=== PATIENT | male | born 1960 | race Caucasian/White ===

== ENCOUNTER 2020-07-06 10:41 | Outpatient (REF) | payer MEDICARE, MEDICAID, SELFPAY ==
[2020-07-06 14:24] LABS: Hematocrit 43.1 % (42-52); Hemoglobin 12.9 g/dl (14.0-18.0)
[2020-07-06 14:27] LABS: Estimated Average Glucose 91 mg/dL; Hemoglobin A1c % 4.8 %
[2020-07-06 14:55] LABS: Alanine Aminotransferase 8 U/L (0-40); Albumin Level 4.3 g/dL (3.5-5.0); Alkaline Phosphatase 71 U/L (39-117); Aspartate Amino Transferase 15 U/L (5-37); Blood Urea Nitrogen 18 mg/dL (9-16); Estimated Glomerular Filt Rate > 60; Glucose Random 105 mg/dL (60-115)
[2020-07-06 15:15] LABS: TSH reflex Free T4 0.87 mIU/mL (0.32-4.0)
[2020-07-06 15:24] LABS: Anion Gap 13 (12-20); Bilirubin Total 0.3 mg/dL (0.0-1.0); Calcium 10.3 mg/dL (8.4-10.2); Carbon Dioxide 26 mmol/L (22-29); Chloride 104 mmol/L (96-108); Potassium 5.3 mmol/l (3.3-5.1); Sodium 138 mmol/L (135-145)
[2020-07-07 18:17] LABS: LDL Cholesterol Direct 135 mg/dL (<100)
== END 2020-07-06 10:42 | disposition home or self-care (01) ==
LOC: HO.HMGCLDS 10:41
PROVIDERS: PCP Internal Medicine; Visit Provider Internal Medicine
DX: Z76.89 Persons encountering health services in other specified circumstances (principal); E78.2 Mixed hyperlipidemia; Z72.0 Tobacco use; E03.9 Hypothyroidism, unspecified; J44.9 Chronic obstructive pulmonary disease, unspecified; R73.01 Impaired fasting glucose; N40.1 Benign prostatic hyperplasia with lower urinary tract symptoms; E66.1 Drug-induced obesity; Z68.30 Body mass index [BMI] 30.0-30.9, adult
CPT/HCPCS: 36415; 80053; 83036; 83721; 84443; 85014; 85018

== ENCOUNTER 2020-07-21 11:50 | Outpatient (REF) | payer MEDICARE, MEDICAID, SELFPAY ==
[2020-07-21 12:09] LABS: MANUAL DIFF FLAG NO
[2020-07-21 12:11] LABS: Basophils Absolute Auto 0.1 X10*3/uL (0.0-0.2); Basophils Percent Auto 0.8 % (0-2); Eosinophils Absolute Auto 0.6 X10*3/uL (0.0-0.4); Eosinophils Percent Auto 5.9 % (0-4); Hematocrit 44.3 % (42-52); Hemoglobin 13.3 g/dl (14.0-18.0); Imm Gran Abs Auto 0.04 X10*3/uL (0.00-0.03); Imm Gran Pct Auto 0.4 % (0.0-0.4); Lymphocytes Absolute Auto 2.8 X10*3/uL (1.2-4.9); Lymphocytes Percent Auto 27.1 % (20-40); Mean Corpuscular Hemoglobin 24.1 pg (27.0-33.0); Mean Corpuscular Volume 80.4 fL (80-98); Mean Platelet Volume 9.4 fL (9.4-12.4); Monocytes Absolute Auto 0.7 X10*3/uL (0.1-1.2); Monocytes Percent Auto 7.2 % (2-11); Neutrophils Percent Auto 58.6 % (45-73); Platelet Count 270 X10*3/uL (160-400); Red Blood Count 5.51 X10*6/uL (4.60-5.80); Red Cell Distribution Width 18.6 % (11.0-16.0); White Blood Count 10.2 X10*3/uL (4.8-10.8)
[2020-07-21 12:36] LABS: Alanine Aminotransferase 9 U/L (0-40); Albumin Level 4.5 g/dL (3.5-5.0); Alkaline Phosphatase 91 U/L (39-117); Anion Gap 12 (12-20); Aspartate Amino Transferase 17 U/L (5-37); Bilirubin Total 0.3 mg/dL (0.0-1.0); Blood Urea Nitrogen 13 mg/dL (9-16); Calcium 9.7 mg/dL (8.4-10.2); Carbon Dioxide 27 mmol/L (22-29); Chloride 104 mmol/L (96-108); Estimated Glomerular Filt Rate > 60; Glucose Random 69 mg/dL (60-115); Potassium 4.7 mmol/l (3.3-5.1); Sodium 138 mmol/L (135-145); Total Protein 7.1 g/dL (6.5-8.0)
== END 2020-07-21 11:51 | disposition home or self-care (01) ==
LOC: HO.BBR 11:50
PROVIDERS: PCP Internal Medicine; Visit Provider Internal Medicine Medical Oncology
DX: D75.1 Secondary polycythemia (principal)
CPT/HCPCS: 36415; 80053; 85025; 99195

== ENCOUNTER 2020-08-21 10:23 | Outpatient (REF) | payer MEDICARE, MEDICAID, SELFPAY ==
[2020-08-21 11:52] LABS: Alanine Aminotransferase 8 U/L (0-40); Albumin Level 4.6 g/dL (3.5-5.0); Alkaline Phosphatase 80 U/L (39-117); Anion Gap 12 (12-20); Aspartate Amino Transferase 13 U/L (5-37); Bilirubin Total 0.5 mg/dL (0.0-1.0); Blood Urea Nitrogen 23 mg/dL (9-16); Calcium 10.6 mg/dL (8.4-10.2); Carbon Dioxide 27 mmol/L (22-29); Chloride 108 mmol/L (96-108); Estimated Glomerular Filt Rate > 60; Glucose Fasting 108 mg/dL (60-99); Magnesium 2.2 mg/dL (1.6-2.6); Phosphorus 3.4 mg/dL (2.7-4.5); Potassium 4.9 mmol/l (3.3-5.1); Sodium 142 mmol/L (135-145); Total Protein 7.5 g/dL (6.5-8.0)
[2020-08-21 12:15] LABS: Vitamin D 25-OH Total 15.5 ng/mL (>30)
[2020-08-23 14:03] LABS: Calcium (PTHI) 10.9 mg/dL (8.6-10.3); PTHI 55 pg/mL (14-64)
[2020-08-27 00:47] LABS: VITAMIN D (1,25 OH) D3 19 pg/mL; Vit D (1,25-Dihydroxy) Total 19 pg/mL (18-72); Vitamin D (1,25 OH) D2 <8 pg/mL
== END 2020-08-21 10:24 | disposition home or self-care (01) ==
LOC: HO.HMGCLDS 10:23
PROVIDERS: PCP Internal Medicine; Visit Provider Internal Medicine Endocrinology, Diabetes & Metabolism
DX: E21.0 Primary hyperparathyroidism (principal)
CPT/HCPCS: 80053; 82306; 82652; 83735; 83970; 84100

== ENCOUNTER 2020-08-24 10:27 | Outpatient (REF) | payer MEDICARE, MEDICAID, SELFPAY | END 2020-08-24 10:28 | disposition home or self-care (01) | LOC: HO.HMGCLDS 10:27 | PROVIDERS: PCP Internal Medicine; Referring Provider Internal Medicine; Visit Provider Internal Medicine Endocrinology, Diabetes & Metabolism | DX: Z20.828 Contact with and (suspected) exposure to other viral communicable diseases (principal); E21.1 Secondary hyperparathyroidism, not elsewhere classified; E55.9 Vitamin D deficiency, unspecified; E04.2 Nontoxic multinodular goiter | CPT/HCPCS: C9803; Q3014; U0003 ==

== ENCOUNTER 2020-09-22 13:58 | Outpatient (REF) | payer MEDICARE, MEDICAID, SELFPAY | END 2020-09-22 13:59 | disposition home or self-care (01) | LOC: HO.BBR 13:58 | PROVIDERS: Visit Provider Internal Medicine Medical Oncology | DX: D75.1 Secondary polycythemia (principal) | CPT/HCPCS: 85018 ==

== ENCOUNTER 2020-10-09 10:32 | Outpatient (REF) | payer MEDICARE, MEDICAID, SELFPAY ==
[2020-10-09 14:28] LABS: Lithium 0.77 mmol/L (0.60-1.20)
[2020-10-09 14:35] LABS: Anion Gap 12 (12-20); Blood Urea Nitrogen 14 mg/dL (9-16); Calcium 10.2 mg/dL (8.4-10.2); Carbon Dioxide 27 mmol/L (22-29); Chloride 102 mmol/L (96-108); Estimated Glomerular Filt Rate > 60; Glucose Random 94 mg/dL (60-115); Potassium 4.7 mmol/l (3.3-5.1); Sodium 136 mmol/L (135-145)
== END 2020-10-09 10:33 | disposition home or self-care (01) ==
LOC: HO.10HDL 10:32
PROVIDERS: Visit Provider Clinical Nurse Specialist Psychiatric/Mental Health, Adult
DX: Z79.899 Other long term (current) drug therapy (principal)
CPT/HCPCS: 36415; 80048; 80178

== ENCOUNTER 2020-11-25 13:51 | Outpatient (REF) | payer MEDICARE, MEDICAID, SELFPAY ==
[2020-11-25 14:07] LABS: MANUAL DIFF FLAG NO
[2020-11-25 14:10] LABS: Basophils Absolute Auto 0.1 X10*3/uL (0.0-0.2); Basophils Percent Auto 0.7 % (0-2); Eosinophils Absolute Auto 0.5 X10*3/uL (0.0-0.4); Hematocrit 41.9 % (42-52); Hemoglobin 12.9 g/dl (14.0-18.0); Imm Gran Abs Auto 0.02 X10*3/uL (0.00-0.03); Imm Gran Pct Auto 0.2 % (0.0-0.4); Lymphocytes Absolute Auto 3.2 X10*3/uL (1.2-4.9); Lymphocytes Percent Auto 35.7 % (20-40); Mean Corpuscular HGB Conc 30.8 g/dl (31.0-36.0); Mean Corpuscular Hemoglobin 24.8 pg (27.0-33.0); Mean Corpuscular Volume 80.6 fL (80-98); Mean Platelet Volume 9.4 fL (9.4-12.4); Monocytes Absolute Auto 0.6 X10*3/uL (0.1-1.2); Monocytes Percent Auto 6.5 % (2-11); Neutrophils Absolute Auto 4.5 X10*3/uL (2.0-8.3); Neutrophils Percent Auto 50.9 % (45-73); Platelet Count 247 X10*3/uL (160-400); Red Cell Distribution Width 17.8 % (11.0-16.0); White Blood Count 8.9 X10*3/uL (4.8-10.8)
[2020-11-25 14:51] LABS: Alanine Aminotransferase 9 U/L (0-40); Albumin Level 4.4 g/dL (3.5-5.0); Alkaline Phosphatase 89 U/L (39-117); Anion Gap 11 (12-20); Aspartate Amino Transferase 15 U/L (5-37); Bilirubin Total 0.4 mg/dL (0.0-1.0); Blood Urea Nitrogen 17 mg/dL (9-16); Calcium 10.1 mg/dL (8.4-10.2); Carbon Dioxide 27 mmol/L (22-29); Chloride 102 mmol/L (96-108); Estimated Glomerular Filt Rate > 60; Glucose Random 106 mg/dL (60-115); Potassium 4.4 mmol/L (3.3-5.1); Sodium 136 mmol/L (135-145); Total Protein 7.1 g/dL (6.5-8.0)
== END 2020-11-25 13:52 | disposition home or self-care (01) ==
LOC: HO.BBR 13:51
PROVIDERS: Visit Provider Internal Medicine Medical Oncology
DX: D75.1 Secondary polycythemia (principal)
CPT/HCPCS: 36415; 80053; 85025

== ENCOUNTER 2020-12-16 10:56 | Outpatient (REF) | payer MEDICARE, MEDICAID, SELFPAY ==
--- NOTE | ~2020-12-16 | XR_ITS ---
EXAMINATION: XR KNEE, LEFT CLINICAL INFORMATION: Pain left knee COMPARISON: None TECHNIQUE: Four views of the left knee. FINDINGS: There is loss of medial and patellofemoral compartment joint space with periarticular spurring. There is mild suprapatellar joint effusion. No visible acute fracture or dislocation seen. There is no lytic process. XR/XR knee LT 4V IMPRESSION: Mild degenerative changes medial and patellar compartment joint space left knee. No visible acute fracture or dislocation seen.
== END 2020-12-16 10:57 | disposition home or self-care (01) ==
LOC: HO.HMGCX 10:56
PROVIDERS: PCP Internal Medicine; Visit Provider Internal Medicine
DX: M25.562 Pain in left knee (principal)
CPT/HCPCS: 73564

== ENCOUNTER 2020-12-29 10:50 | Outpatient (REF) | payer MEDICARE, MEDICAID, SELFPAY ==
--- NOTE | ~2020-12-29 | CT_ITS ---
EXAMINATION: CT CHEST SCREENING CLINICAL INFORMATION: Smoking history COMPARISON: Previous chest CT October 2019 TECHNIQUE: Multidetector volumetric CT imaging of the chest is performed without contrast using low dose technique. Additional 2D coronal and sagittal reformatted images and axial 3D maximum intensity projection (MIP) images are generated on the CT workstation. This CT examination was performed using dose optimization techniques as appropriate, variously including the following: *Automated exposure control *Adjustment of mA and/or kV according to patient size (this includes techniques or standardized protocols for targeted exams where dose is matched to indication/reason for exam; i.e. extremities or head) *Use of iterative reconstruction technique DLP: 290 mGy-cm FINDINGS: LUNGS: There is evidence of mild emphysema. There is cystic change seen in the left upper lobe measuring 1.8 cm axial image 108 series 5 that is stable. There is chronic scarring or subsegmental atelectasis at the left lung base in the inferior segment of the lingula and left lower lobe that is stable. There are scattered areas of mild bronchial wall thickening and bronchial soft tissue opacification. There are scattered areas of soft tissue opacification in the trachea. These are likely related to patient secretions. MEDIASTINUM: There is shotty mediastinal lymphadenopathy that is similar to previous exam. No enlarged lymph nodes are seen. The heart is upper normal in size. There is coronary artery and aortic valve calcification. The thoracic aorta is upper normal in size. There is a trace pericardial effusion. PLEURA: There is no pleural effusion. No pleural mass or thickening. AXILLA: No lymphadenopathy. UPPER ABDOMEN: There is a small calcification in the spleen. OSSEOUS STRUCTURES: There are old bilateral rib fractures. There are degenerative changes of the spine. CT/CT lung screening IMPRESSION: Mild emphysema. Focal cystic change in the left upper lobe and chronic scarring or subsegmental atelectasis at the left lung base in the inferior segment of the lingula and left lower lobe similar to previous exam. Upper normal-sized heart and thoracic aorta. Coronary artery and aortic valve calcification. ASSESSMENT: Lung-RADS category 2: Benign RECOMMENDATION: Annual low-dose chest CT scanned.
== END 2020-12-29 10:51 | disposition home or self-care (01) ==
LOC: HO.CT 10:50
PROVIDERS: Visit Provider Surgery
DX: Z12.2 Encounter for screening for malignant neoplasm of respiratory organs (principal); F17.210 Nicotine dependence, cigarettes, uncomplicated
CPT/HCPCS: 71271

== ENCOUNTER → 2021-01-01 11:35 | Outpatient (BNVA) | payer MEDICARE, MEDICAID, SELFPAY | PROVIDERS: PCP Internal Medicine; Visit Provider Physician Assistant | DX: M17.12 Unilateral primary osteoarthritis, left knee (principal) | CPT/HCPCS: 99202; J1040 ==

== ENCOUNTER 2021-01-13 09:48 | Outpatient (REF) | payer MEDICARE, MEDICAID, SELFPAY ==
[2021-01-13 11:51] LABS: Lithium 0.98 mmol/L (0.60-1.20)
[2021-01-13 12:19] LABS: Vitamin D 25-OH Total 39.8 ng/mL (>30)
[2021-01-13 12:23] LABS: TSH reflex Free T4 1.92 uIU/mL (0.32-4.0)
[2021-01-13 12:34] LABS: Alanine Aminotransferase 15 U/L (0-40); Albumin Level 4.5 g/dL (3.5-5.0); Alkaline Phosphatase 106 U/L (39-117); Anion Gap 13 (12-20); Aspartate Amino Transferase 21 U/L (5-37); Bilirubin Total 0.3 mg/dL (0.0-1.0); Blood Urea Nitrogen 18 mg/dL (9-16); Calcium 10.7 mg/dL (8.4-10.2); Carbon Dioxide 26 mmol/L (22-29); Chloride 104 mmol/L (96-108); Estimated Glomerular Filt Rate > 60; Glucose Fasting 98 mg/dL (60-99); Potassium 5.2 mmol/L (3.3-5.1); Sodium 138 mmol/L (135-145); Total Protein 7.1 g/dL (6.5-8.0)
[2021-01-14 09:26] LABS: LDL Cholesterol Direct 130 mg/dL (<100)
[2021-01-14 13:06] LABS: Calcium (PTHI) 10.7 mg/dL (8.6-10.3); PTHI 50 pg/mL (14-64)
== END 2021-01-13 09:49 | disposition home or self-care (01) ==
LOC: HO.HMGCLDS 09:48
PROVIDERS: Absent Provider Internal Medicine Endocrinology, Diabetes & Metabolism; PCP Internal Medicine; Referring Provider Clinical Nurse Specialist Psychiatric/Mental Health, Adult; Visit Provider Internal Medicine
DX: Z12.5 Encounter for screening for malignant neoplasm of prostate (principal); E03.9 Hypothyroidism, unspecified; E78.9 Disorder of lipoprotein metabolism, unspecified; J44.9 Chronic obstructive pulmonary disease, unspecified; K21.9 Gastro-esophageal reflux disease without esophagitis; N40.0 Benign prostatic hyperplasia without lower urinary tract symptoms; E21.1 Secondary hyperparathyroidism, not elsewhere classified; T43.595A Adverse effect of other antipsychotics and neuroleptics, initial encounter; Z72.0 Tobacco use; Z79.899 Other long term (current) drug therapy
CPT/HCPCS: 36415; 80053; 80178; 82306; 83721; 83970; 84153; 84443

== ENCOUNTER 2021-01-29 10:58 | Outpatient (REF) | payer MEDICARE, MEDICAID, SELFPAY | END 2021-01-29 10:59 | disposition home or self-care (01) | LOC: HO.BBR 10:58 | PROVIDERS: Visit Provider Internal Medicine Medical Oncology | DX: D75.1 Secondary polycythemia (principal) | CPT/HCPCS: 36415; 85018; 99195 ==

== ENCOUNTER 2021-02-09 10:48 | Outpatient (REF) | payer MEDICARE, MEDICAID, SELFPAY ==
[2021-02-09 14:31] LABS: Alanine Aminotransferase 12 U/L (0-40); Albumin Level 4.4 g/dL (3.5-5.0); Alkaline Phosphatase 95 U/L (39-117); Anion Gap 16 (12-20); Aspartate Amino Transferase 16 U/L (5-37); Bilirubin Total 0.3 mg/dL (0.0-1.0); Blood Urea Nitrogen 20 mg/dL (9-16); Carbon Dioxide 23 mmol/L (22-29); Chloride 103 mmol/L (96-108); Estimated Glomerular Filt Rate > 60; Glucose Fasting 126 mg/dL (60-99); Potassium 4.6 mmol/L (3.3-5.1); Sodium 137 mmol/L (135-145); Total Protein 7.2 g/dL (6.5-8.0)
[2021-02-09 14:44] LABS: Calcium 10.9 mg/dL (8.4-10.2)
[2021-02-09 14:47] LABS: Vitamin D 25-OH Total 42.7 ng/mL (>30)
[2021-02-11 10:07] LABS: Calcium (PTHI) 10.9 mg/dL (8.6-10.3); PTHI 52 pg/mL (14-64)
== END 2021-02-09 10:49 | disposition home or self-care (01) ==
LOC: HO.HMGCLDS 10:48
PROVIDERS: Internal Medicine Endocrinology, Diabetes & Metabolism; PCP Internal Medicine; Visit Provider Clinical Nurse Specialist Psychiatric/Mental Health, Adult
DX: E87.5 Hyperkalemia (principal); E21.1 Secondary hyperparathyroidism, not elsewhere classified; T43.595A Adverse effect of other antipsychotics and neuroleptics, initial encounter; Z79.899 Other long term (current) drug therapy
CPT/HCPCS: 36415; 80048; 80053; 82306; 83970

== ENCOUNTER → 2021-02-23 11:02 | Outpatient (BNV) | payer MEDICARE, MEDICAID, SELFPAY | PROVIDERS: PCP Internal Medicine; Visit Provider Internal Medicine Medical Oncology | DX: D75.1 Secondary polycythemia (principal) | CPT/HCPCS: 99213; 99214 ==

== ENCOUNTER 2021-03-11 10:01 | Outpatient (REF) | payer MEDICARE, MEDICAID, SELFPAY ==
[2021-03-11 12:07] LABS: Vitamin D 25-OH Total 44.6 ng/mL (>30)
[2021-03-11 12:08] LABS: Alanine Aminotransferase 8 U/L (0-40); Albumin Level 4.5 g/dL (3.5-5.0); Alkaline Phosphatase 103 U/L (39-117); Anion Gap 14 (12-20); Aspartate Amino Transferase 16 U/L (5-37); Bilirubin Total 0.3 mg/dL (0.0-1.0); Blood Urea Nitrogen 27 mg/dL (9-16); Calcium 10.8 mg/dL (8.4-10.2); Carbon Dioxide 24 mmol/L (22-29); Chloride 104 mmol/L (96-108); Estimated Glomerular Filt Rate > 60; Glucose Fasting 115 mg/dL (60-99); Potassium 4.7 mmol/L (3.3-5.1); Sodium 137 mmol/L (135-145); Total Protein 7.3 g/dL (6.5-8.0)
== END 2021-03-11 10:02 | disposition home or self-care (01) ==
LOC: HO.HMGCLDS 10:01
PROVIDERS: PCP Internal Medicine; Visit Provider Internal Medicine Endocrinology, Diabetes & Metabolism
DX: E21.1 Secondary hyperparathyroidism, not elsewhere classified (principal); T43.595A Adverse effect of other antipsychotics and neuroleptics, initial encounter
CPT/HCPCS: 36415; 80053; 82306

== ENCOUNTER → 2021-03-17 10:47 | Outpatient (BNVA) | payer MEDICARE, MEDICAID, SELFPAY | PROVIDERS: PCP Internal Medicine; Visit Provider Internal Medicine Endocrinology, Diabetes & Metabolism | DX: E21.1 Secondary hyperparathyroidism, not elsewhere classified (principal); T43.595A Adverse effect of other antipsychotics and neuroleptics, initial encounter; E55.9 Vitamin D deficiency, unspecified; E04.2 Nontoxic multinodular goiter; E83.52 Hypercalcemia | CPT/HCPCS: 99212 ==

== ENCOUNTER 2021-06-16 11:38 | Outpatient (REF) | payer MEDICARE, MEDICAID, SELFPAY ==
[2021-06-16 14:23] LABS: Anion Gap 12 (12-20); Blood Urea Nitrogen 21 mg/dL (9-16); Calcium 10.9 mg/dL (8.4-10.2); Carbon Dioxide 26 mmol/L (22-29); Chloride 107 mmol/L (96-108); Estimated Glomerular Filt Rate > 60; Glucose Random 68 mg/dL (60-115); Potassium 5.1 mmol/L (3.3-5.1); Sodium 140 mmol/L (135-145)
[2021-06-16 14:32] LABS: Lithium 1.13 mmol/L (0.60-1.20)
[2021-06-16 14:37] LABS: Thyroid Stimulating Hormone 1.55 uIU/mL (0.32-4.0)
== END 2021-06-16 11:39 | disposition home or self-care (01) ==
LOC: HO.HMGCLDS 11:38
PROVIDERS: PCP Internal Medicine; Visit Provider Clinical Nurse Specialist Psychiatric/Mental Health, Adult
DX: Z79.899 Other long term (current) drug therapy (principal)
CPT/HCPCS: 36415; 80048; 80178; 84443

== ENCOUNTER 2021-06-18 09:31 | Outpatient (REF) | payer MEDICARE, MEDICAID, SELFPAY ==
[2021-06-18 13:22] LABS: Lithium 0.77 mmol/L (0.60-1.20)
== END 2021-06-18 09:32 | disposition home or self-care (01) ==
LOC: HO.HMGCLR 09:31
PROVIDERS: PCP Internal Medicine; Visit Provider Clinical Nurse Specialist Psychiatric/Mental Health, Adult
DX: Z79.899 Other long term (current) drug therapy (principal)
CPT/HCPCS: 36415; 80178

== ENCOUNTER 2021-06-29 09:38 | Outpatient (REF) | payer MEDICARE, MEDICAID, SELFPAY ==
[2021-06-29 13:35] LABS: Lithium 0.58 mmol/L (0.60-1.20)
== END 2021-06-29 09:39 | disposition home or self-care (01) ==
LOC: HO.HMGCLR 09:38
PROVIDERS: PCP Internal Medicine; Visit Provider Clinical Nurse Specialist Psychiatric/Mental Health, Adult
DX: Z79.899 Other long term (current) drug therapy (principal)
CPT/HCPCS: 36415; 80178

== ENCOUNTER 2021-08-03 10:17 | Outpatient (REF) | payer MEDICARE, MEDICAID, SELFPAY ==
[2021-08-03 11:48] LABS: MANUAL DIFF FLAG NO
[2021-08-03 11:52] LABS: Basophils Absolute Auto 0.1 X10*3/uL (0.0-0.2); Basophils Percent Auto 0.8 % (0-2); Eosinophils Absolute Auto 0.5 X10*3/uL (0.0-0.4); Eosinophils Percent Auto 5.5 % (0-4); Hematocrit 51.8 % (42.0-52.0); Hemoglobin 16.3 g/dl (14.0-18.0); Imm Gran Abs Auto 0.03 X10*3/uL (0.00-0.03); Imm Gran Pct Auto 0.3 % (0.0-0.4); Lymphocytes Absolute Auto 3.6 X10*3/uL (1.2-4.9); Mean Corpuscular HGB Conc 31.5 g/dl (31.0-36.0); Mean Corpuscular Hemoglobin 28.4 pg (27.0-33.0); Mean Corpuscular Volume 90.4 fL (80.0-98.0); Monocytes Absolute Auto 0.6 X10*3/uL (0.1-1.2); Monocytes Percent Auto 6.6 % (2-11); Neutrophils Absolute Auto 4.2 x10*3/uL (2.0-8.3); Neutrophils Percent Auto 46.8 % (45-73); Platelet Count 260 X10*3/uL (160-400); Red Blood Count 5.73 X10*6/uL (4.60-5.80); Red Cell Distribution Width 15.2 % (11.0-16.0); White Blood Count 8.9 X10*3/uL (4.8-10.8)
[2021-08-03 12:15] LABS: Iron 57 mcg/dL (45-160); Percent Iron Saturation 12 % (15-50); Total Iron Binding Capacity 462 mcg/dL (228-428); Unsaturated Iron Binding 405 ug/dL
[2021-08-03 12:39] LABS: Ferritin 46 ng/mL (20-250)
== END 2021-08-03 10:18 | disposition home or self-care (01) ==
LOC: HO.HMGCLDS 10:17
PROVIDERS: PCP Internal Medicine; Visit Provider Internal Medicine
DX: D50.9 Iron deficiency anemia, unspecified (principal)
CPT/HCPCS: 36415; 82728; 83540; 85025

== ENCOUNTER 2021-09-01 11:02 | Outpatient (REF) | payer MEDICARE, MEDICAID, SELFPAY | END 2021-09-01 11:03 | disposition home or self-care (01) | LOC: HO.BBR 11:02 | PROVIDERS: Visit Provider Internal Medicine Medical Oncology | DX: D75.1 Secondary polycythemia (principal) | CPT/HCPCS: 85018; 99195 ==

== ENCOUNTER 2021-09-14 10:40 | Outpatient (REF) | payer MEDICARE, MEDICAID, SELFPAY ==
[2021-09-14 14:03] LABS: Hematocrit 51.2 % (42.0-52.0); Hemoglobin 16.3 g/dl (14.0-18.0)
[2021-09-14 14:12] LABS: Alanine Aminotransferase 13 U/L (0-40); Albumin Level 4.6 g/dL (3.5-5.0); Alkaline Phosphatase 101 U/L (39-117); Anion Gap 12 (12-20); Aspartate Amino Transferase 18 U/L (5-37); Bilirubin Total 0.4 mg/dL (0.0-1.0); Blood Urea Nitrogen 15 mg/dL (9-16); Carbon Dioxide 29 mmol/L (22-29); Chloride 103 mmol/L (96-108); Estimated Average Glucose 91 mg/dL; Estimated Glomerular Filt Rate > 60; Glucose Random 108 mg/dL (60-115); Hemoglobin A1c % 4.8 %; Potassium 4.5 mmol/L (3.3-5.1); Sodium 139 mmol/L (135-145); Total Protein 7.4 g/dL (6.5-8.0)
[2021-09-14 14:37] LABS: TSH reflex Free T4 1.29 uIU/mL (0.32-4.0)
== END 2021-09-14 10:41 | disposition home or self-care (01) ==
LOC: HO.HMGCLDS 10:40
PROVIDERS: PCP Internal Medicine; Visit Provider Internal Medicine
DX: E03.9 Hypothyroidism, unspecified (principal); E66.9 Obesity, unspecified; E78.9 Disorder of lipoprotein metabolism, unspecified; J44.9 Chronic obstructive pulmonary disease, unspecified; K21.9 Gastro-esophageal reflux disease without esophagitis; N40.0 Benign prostatic hyperplasia without lower urinary tract symptoms; Z72.0 Tobacco use
CPT/HCPCS: 36415; 80053; 83036; 84443; 85014; 85018

== ENCOUNTER 2021-10-12 10:23 | Outpatient (REF) | payer MEDICARE, MEDICAID, SELFPAY ==
[2021-10-12 12:26] LABS: Lithium 0.55 mmol/L (0.60-1.20)
== END 2021-10-12 10:24 | disposition home or self-care (01) ==
LOC: HO.HMGCLDS 10:23
PROVIDERS: Visit Provider Clinical Nurse Specialist Psychiatric/Mental Health, Adult
DX: Z79.899 Other long term (current) drug therapy (principal)
CPT/HCPCS: 36415; 80178

== ENCOUNTER 2021-11-03 10:41 | Outpatient (REF) | payer MEDICARE, MEDICAID, SELFPAY ==
[2021-11-03 10:57] LABS: MANUAL DIFF FLAG NO
[2021-11-03 11:00] LABS: Basophils Absolute Auto 0.1 X10*3/uL (0.0-0.2); Basophils Percent Auto 0.7 % (0-2); Eosinophils Absolute Auto 0.4 X10*3/uL (0.0-0.4); Eosinophils Percent Auto 4.4 % (0-4); Hematocrit 48.5 % (42.0-52.0); Hemoglobin 16.1 g/dl (14.0-18.0); Imm Gran Abs Auto 0.04 X10*3/uL (0.00-0.03); Imm Gran Pct Auto 0.4 % (0.0-0.4); Lymphocytes Absolute Auto 3.7 X10*3/uL (1.2-4.9); Lymphocytes Percent Auto 39.5 % (20-40); Mean Corpuscular HGB Conc 33.2 g/dl (31.0-36.0); Mean Corpuscular Hemoglobin 29.9 pg (27.0-33.0); Mean Corpuscular Volume 90.1 fL (80.0-98.0); Mean Platelet Volume 9.2 fL (9.4-12.4); Monocytes Absolute Auto 0.7 X10*3/uL (0.1-1.2); Monocytes Percent Auto 7.3 % (2-11); Neutrophils Absolute Auto 4.4 x10*3/uL (2.0-8.3); Neutrophils Percent Auto 47.7 % (45-73); Platelet Count 231 X10*3/uL (160-400); Red Blood Count 5.38 X10*6/uL (4.60-5.80); Red Cell Distribution Width 14.4 % (11.0-16.0); White Blood Count 9.2 X10*3/uL (4.8-10.8)
[2021-11-03 11:28] LABS: Alanine Aminotransferase 9 U/L (0-40); Albumin Level 4.3 g/dL (3.5-5.0); Alkaline Phosphatase 94 U/L (39-117); Anion Gap 12 (12-20); Aspartate Amino Transferase 16 U/L (5-37); Bilirubin Total 0.3 mg/dL (0.0-1.0); Blood Urea Nitrogen 26 mg/dL (9-16); Calcium 10.6 mg/dL (8.4-10.2); Carbon Dioxide 23 mmol/L (22-29); Chloride 105 mmol/L (96-108); Estimated Glomerular Filt Rate > 60; Glucose Random 120 mg/dL (60-115); Potassium 5.2 mmol/L (3.3-5.1); Sodium 135 mmol/L (135-145)
== END 2021-11-03 10:42 | disposition home or self-care (01) ==
LOC: HO.BBR 10:41
PROVIDERS: Visit Provider Internal Medicine Medical Oncology
DX: D75.1 Secondary polycythemia (principal)
CPT/HCPCS: 36415; 80053; 85025; 99195

== ENCOUNTER → 2021-12-14 09:58 | Outpatient (BNVA) | payer MEDICARE, MEDICAID, SELFPAY | PROVIDERS: PCP Internal Medicine; Visit Provider Internal Medicine Endocrinology, Diabetes & Metabolism | DX: E83.52 Hypercalcemia (principal); E04.2 Nontoxic multinodular goiter | CPT/HCPCS: 99212 ==

== ENCOUNTER 2021-12-30 10:55 | Outpatient (REF) | payer MEDICARE, MEDICAID, SELFPAY | END 2021-12-30 10:56 | disposition home or self-care (01) | LOC: HO.BBR 10:55 | PROVIDERS: Visit Provider Internal Medicine Medical Oncology | DX: D75.1 Secondary polycythemia (principal) | CPT/HCPCS: 85018; 99195 ==

== ENCOUNTER 2022-01-14 11:35 | Outpatient (REF) | payer MEDICARE, MEDICAID, SELFPAY ==
--- NOTE | ~2022-01-14 | US_ITS ---
EXAMINATION: US THYROID CLINICAL INFORMATION: Nontoxic multinodular goiter. COMPARISON: Thyroid ultrasound 04/29/2020. TECHNIQUE: Linear transducer grayscale and color Doppler examination with attention to the region of the thyroid. FINDINGS: SIZE: Measurements of the thyroid lobes and nodules are given in sagittal, anteroposterior and transverse dimensions respectively. Right Thyroid Lobe: 5.9 x 2.3 x 1.3 cm, volume 8.8 mL. Previously 5.6 x 2.1 x 2.2 cm, volume 13.5 mL. Parenchyma: The gland echotexture is homogeneous. Thyroid vascularity is normal. Left Thyroid Lobe: 5.5 x 2.5 x 1.5 cm, volume 10.8 mL. Previously 5.4 x 2.5 x 1.7 cm, volume 11.9 mL. Parenchyma: The gland echotexture is homogeneous. Thyroid vascularity is normal. Isthmus: 0.6 cm in maximum AP dimension. Previously 0.3 cm. Estimated total number of nodules greater than or equal to 1 cm: 0. Bridge Repairer nodules are described as follows: 1. Location: Right upper pole. Size: 0.8 x 0.4 x 0.6 cm, volume 0.09 mL. Previously: 0.6 x 0.4 x 0.5 cm, volume 0.06 mL. Nodule characteristics: Composition: Cystic(0). ACR TI-RADS total points: 0 ACR TI-RADS category: 1 Significant change in size (>/= 20% in 2 dimensions and minimal increase of 2 mm or 50% or greater increase in volume): No Change in features: No Change in ACR TI-RADS risk category: No 2. Location: Right lower pole. Size: 0.8 x 0.8 x 0.9 cm, volume 0.33 mL. Previously: Not documented. Nodule characteristics: Composition: Cannot be determined (2). Echogenicity: Hypoechoic (2). Shape: Not taller than wide (0). Margins: Smooth (0). Echogenic Foci: Peripheral calcifications (2). ACR TI-RADS total points: 6 ACR TI-RADS category: 4 3. Location: Left upper pole. Size: 0.8 x 0.5 x 0.6 cm, volume 0.11 mL. Previously: 0.9 x 0.6 x 0.7 cm, volume 0.21 mL. Nodule characteristics: Composition: Cystic(0). ACR TI-RADS total points: 0 ACR TI-RADS category: 1 Significant change in size (>/= 20% in 2 dimensions and minimal increase of 2 mm or 50% or greater increase in volume): No Change in features: No Change in ACR TI-RADS risk category: No NODES: No lymphadenopathy is seen in the tissue surrounding the thyroid gland. US/US thyroid IMPRESSION: Multiple subcentimeter thyroid nodules. The previously visualized nodules are without significant change. Based on size and appearance, these nodules do not require follow-up. ACR TI-RADS RECOMMENDATION REFERENCE: Ultrasound-guided fine-needle aspiration, followup ultrasound, no further follow up. * TR1 (0 point) and TR 2 (2 points): No FNA or follow up * TR3 (3 points): FNA if more than or equal to 2.5 cm in maximum dimension, followup ultrasound in 1, 3 and 5 years if 1.5 to 2.4 cm in maximum dimension. * TR4 (4-6 points): FNA if more than or equal to 1.5 cm in maximum dimension, followup ultrasound in 1, 2, 3 and 5 years if 1 to 1.4 cm in maximum dimension. * TR5 (more than or equal to 7 points): FNA if more than or equal to 1 cm in maximum dimension, followup ultrasound every year for 5 years if 0.5 to 0.9 cm in maximum dimension. * TR3, TR4 or TR5 nodules that are below the size threshold for follow up receive no follow up.
== END 2022-01-14 11:36 | disposition home or self-care (01) ==
LOC: HO.HMGCX 11:35
PROVIDERS: Visit Provider Internal Medicine Endocrinology, Diabetes & Metabolism
DX: E04.2 Nontoxic multinodular goiter (principal)
CPT/HCPCS: 76536

== ENCOUNTER 2022-03-01 10:54 | Outpatient (REF) | payer MEDICARE, MEDICAID, SELFPAY ==
[2022-03-01 11:22] LABS: Basophils Absolute Auto 0.1 X10*3/uL (0.0-0.2); Basophils Percent Auto 0.7 % (0-2); Eosinophils Absolute Auto 0.3 X10*3/uL (0.0-0.4); Eosinophils Percent Auto 3.1 % (0-4); Hemoglobin 15.1 g/dl (14.0-18.0); Imm Gran Abs Auto 0.04 X10*3/uL (0.00-0.03); Imm Gran Pct Auto 0.4 % (0.0-0.4); Lymphocytes Absolute Auto 4.5 X10*3/uL (1.2-4.9); Lymphocytes Percent Auto 46.6 % (20-40); MANUAL DIFF FLAG NO; Mean Corpuscular HGB Conc 32.8 g/dl (31.0-36.0); Mean Corpuscular Hemoglobin 29.8 pg (27.0-33.0); Mean Corpuscular Volume 90.9 fL (80.0-98.0); Mean Platelet Volume 9.1 fL (9.4-12.4); Monocytes Absolute Auto 0.7 X10*3/uL (0.1-1.2); Monocytes Percent Auto 7.2 % (2-11); Platelet Count 217 X10*3/uL (160-400); Red Blood Count 5.06 X10*6/uL (4.60-5.80); Red Cell Distribution Width 14.9 % (11.0-16.0); White Blood Count 9.6 X10*3/uL (4.8-10.8)
[2022-03-01 12:16] LABS: Alanine Aminotransferase 20 U/L (0-40); Albumin Level 4.4 g/dL (3.5-5.0); Alkaline Phosphatase 92 U/L (39-117); Anion Gap 11 (12-20); Aspartate Amino Transferase 24 U/L (5-37); Bilirubin Total 0.5 mg/dL (0.0-1.0); Blood Urea Nitrogen 22 mg/dL (9-16); Calcium 10.2 mg/dL (8.4-10.2); Carbon Dioxide 26 mmol/L (22-29); Chloride 103 mmol/L (96-108); Estimated Glomerular Filt Rate > 60; Glucose Random 97 mg/dL (60-115); Potassium 5.3 mmol/L (3.3-5.1); Sodium 135 mmol/L (135-145); Total Protein 7.1 g/dL (6.5-8.0)
== END 2022-03-01 10:55 | disposition home or self-care (01) ==
LOC: HO.BBR 10:54
PROVIDERS: Visit Provider Internal Medicine Medical Oncology
DX: D75.1 Secondary polycythemia (principal)
CPT/HCPCS: 36415; 80053; 85025; 99195

== ENCOUNTER 2022-06-01 11:08 | Outpatient (REF) | payer MEDICARE, MEDICAID, SELFPAY ==
[2022-06-01 11:25] LABS: Basophils Absolute Auto 0.1 X10*3/uL (0.0-0.2); Basophils Percent Auto 0.6 % (0-2); Eosinophils Absolute Auto 0.5 X10*3/uL (0.0-0.4); Eosinophils Percent Auto 3.6 % (0-4); Hematocrit 51.6 % (42.0-52.0); Hemoglobin 16.9 g/dl (14.0-18.0); Imm Gran Abs Auto 0.05 X10*3/uL (0.00-0.03); Imm Gran Pct Auto 0.4 % (0.0-0.4); Lymphocytes Absolute Auto 5.3 X10*3/uL (1.2-4.9); Lymphocytes Percent Auto 40.2 % (20-40); MANUAL DIFF FLAG SCAN; Mean Corpuscular HGB Conc 32.8 g/dl (31.0-36.0); Mean Corpuscular Hemoglobin 29.9 pg (27.0-33.0); Mean Corpuscular Volume 91.2 fL (80.0-98.0); Mean Platelet Volume 9.1 fL (9.4-12.4); Monocytes Absolute Auto 0.7 X10*3/uL (0.1-1.2); Monocytes Percent Auto 5.5 % (2-11); Neutrophils Absolute Auto 6.6 x10*3/uL (2.0-8.3); Neutrophils Percent Auto 49.7 % (45-73); Platelet Count 238 X10*3/uL (160-400); Red Blood Count 5.66 X10*6/uL (4.60-5.80); Red Cell Distribution Width 13.9 % (11.0-16.0); SCAN SMEAR FLAG 1; White Blood Count 13.2 X10*3/uL (4.8-10.8)
[2022-06-01 12:22] LABS: SLIDE REVIEW VERIFIED
[2022-06-01 12:35] LABS: Alanine Aminotransferase 13 U/L (0-40); Albumin Level 4.3 g/dL (3.5-5.0); Alkaline Phosphatase 101 U/L (39-117); Anion Gap 17 (12-20); Aspartate Amino Transferase 21 U/L (5-37); Bilirubin Total 0.4 mg/dL (0.0-1.0); Blood Urea Nitrogen 13 mg/dL (9-16); Calcium 10.8 mg/dL (8.4-10.2); Carbon Dioxide 23 mmol/L (22-29); Chloride 105 mmol/L (96-108); Estimated Glomerular Filt Rate > 60; Glucose Random 126 mg/dL (60-115); Potassium 4.6 mmol/L (3.3-5.1); Sodium 140 mmol/L (135-145); Total Protein 7.2 g/dL (6.5-8.0)
== END 2022-06-01 11:09 | disposition home or self-care (01) ==
LOC: HO.BBR 11:08
PROVIDERS: Visit Provider Internal Medicine Medical Oncology
DX: D75.1 Secondary polycythemia (principal)
CPT/HCPCS: 36415; 80053; 85018; 85025; 99195

== ENCOUNTER → 2022-06-15 11:04 | Outpatient (BNVA) | payer MEDICARE, MEDICAID, SELFPAY | PROVIDERS: PCP Internal Medicine; Visit Provider Urology | DX: N40.1 Benign prostatic hyperplasia with lower urinary tract symptoms (principal); R39.12 Poor urinary stream | CPT/HCPCS: 51798; 99202 ==

== ENCOUNTER 2022-08-31 10:58 | Outpatient (REF) | payer MEDICARE, MEDICAID, SELFPAY ==
[2022-08-31 11:27] LABS: Basophils Absolute Auto 0.1 X10*3/uL (0.0-0.2); Basophils Percent Auto 0.6 % (0-2); Eosinophils Absolute Auto 0.3 X10*3/uL (0.0-0.4); Eosinophils Percent Auto 2.6 % (0-4); Hematocrit 51.7 % (42.0-52.0); Imm Gran Abs Auto 0.06 X10*3/uL (0.00-0.03); Imm Gran Pct Auto 0.5 % (0.0-0.4); Lymphocytes Percent Auto 51.3 % (20-40); MANUAL DIFF FLAG SCAN; Mean Corpuscular HGB Conc 32.9 g/dl (31.0-36.0); Mean Corpuscular Hemoglobin 29.8 pg (27.0-33.0); Mean Corpuscular Volume 90.5 fL (80.0-98.0); Mean Platelet Volume 9.1 fL (9.4-12.4); Monocytes Absolute Auto 0.7 X10*3/uL (0.1-1.2); Monocytes Percent Auto 5.6 % (2-11); Neutrophils Absolute Auto 4.9 x10*3/uL (2.0-8.3); Neutrophils Percent Auto 39.4 % (45-73); Platelet Count 247 X10*3/uL (160-400); Red Blood Count 5.71 X10*6/uL (4.60-5.80); SCAN SMEAR FLAG 1; White Blood Count 12.5 X10*3/uL (4.8-10.8)
[2022-08-31 11:29] LABS: Lymphocytes Absolute Auto 6.4 X10*3/uL (1.2-4.9)
[2022-08-31 11:47] LABS: SLIDE REVIEW VERIFIED
[2022-08-31 15:17] LABS: Alanine Aminotransferase 12 U/L (0-40); Albumin Level 4.4 g/dL (3.5-5.0); Alkaline Phosphatase 99 U/L (39-117); Anion Gap 15 (12-20); Aspartate Amino Transferase 18 U/L (5-37); Bilirubin Total 0.4 mg/dL (0.0-1.0); Blood Urea Nitrogen 25 mg/dL (9-16); Calcium 10.9 mg/dL (8.4-10.2); Carbon Dioxide 23 mmol/L (22-29); Chloride 104 mmol/L (96-108); Estimated Glomerular Filt Rate > 60; Glucose Random 105 mg/dL (60-115); Sodium 137 mmol/L (135-145); Total Protein 7.1 g/dL (6.5-8.0)
== END 2022-08-31 10:59 | disposition home or self-care (01) ==
LOC: HO.BBR 10:58
PROVIDERS: Visit Provider Internal Medicine Medical Oncology
DX: D75.1 Secondary polycythemia (principal)
CPT/HCPCS: 36415; 80053; 85014; 85018; 85025; 99195

== ENCOUNTER 2022-11-16 10:37 | Outpatient (REF) | payer MEDICARE, MEDICAID, SELFPAY ==
[2022-11-16 14:15] LABS: Basophils Absolute Auto 0.1 X10*3/uL (0.0-0.2); Basophils Percent Auto 0.5 % (0-2); Eosinophils Absolute Auto 0.3 X10*3/uL (0.0-0.4); Eosinophils Percent Auto 2.2 % (0-4); Hematocrit 51.7 % (42.0-52.0); Hemoglobin 16.9 g/dl (14.0-18.0); Imm Gran Abs Auto 0.06 X10*3/uL (0.00-0.03); Imm Gran Pct Auto 0.5 % (0.0-0.4); Lymphocytes Percent Auto 51.3 % (20-40); MANUAL DIFF FLAG SCAN; Mean Corpuscular HGB Conc 32.7 g/dl (31.0-36.0); Mean Corpuscular Hemoglobin 29.9 pg (27.0-33.0); Mean Corpuscular Volume 91.5 fL (80.0-98.0); Mean Platelet Volume 9.6 fL (9.4-12.4); Monocytes Absolute Auto 0.6 X10*3/uL (0.1-1.2); Monocytes Percent Auto 4.9 % (2-11); Neutrophils Absolute Auto 5.3 x10*3/uL (2.0-8.3); Neutrophils Percent Auto 40.6 % (45-73); Platelet Count 243 X10*3/uL (160-400); Red Blood Count 5.65 X10*6/uL (4.60-5.80); Red Cell Distribution Width 14.2 % (11.0-16.0); SCAN SMEAR FLAG 1
[2022-11-16 14:17] LABS: Lymphocytes Absolute Auto 6.7 X10*3/uL (1.2-4.9)
[2022-11-16 14:36] LABS: Alanine Aminotransferase 16 U/L (0-40); Albumin Level 4.7 g/dL (3.5-5.0); Alkaline Phosphatase 114 U/L (39-117); Anion Gap 12 (12-20); Aspartate Amino Transferase 22 U/L (5-37); Bilirubin Total 0.7 mg/dL (0.0-1.0); Blood Urea Nitrogen 25 mg/dL (9-16); Calcium 11.4 mg/dL (8.4-10.2); Carbon Dioxide 28 mmol/L (22-29); Chloride 103 mmol/L (96-108); Estimated Glomerular Filt Rate > 60; Glucose Random 128 mg/dL (60-115); Potassium 5.1 mmol/L (3.3-5.1); Sodium 138 mmol/L (135-145); Total Protein 7.7 g/dL (6.5-8.0)
[2022-11-16 14:41] LABS: SLIDE REVIEW VERIFIED
[2022-11-16 16:14] LABS: Lithium 0.54 mmol/L (0.60-1.20)
== END 2022-11-16 10:38 | disposition home or self-care (01) ==
LOC: HO.HMGCLDS 10:37
PROVIDERS: PCP Internal Medicine; Visit Provider Clinical Nurse Specialist Psychiatric/Mental Health, Adult
DX: Z79.899 Other long term (current) drug therapy (principal)
CPT/HCPCS: 36415; 80053; 80178; 85025

== ENCOUNTER 2022-12-01 11:01 | Outpatient (REF) | payer MEDICARE, MEDICAID, SELFPAY ==
[2022-12-01 11:26] LABS: Basophils Absolute Auto 0.1 X10*3/uL (0.0-0.2); Basophils Percent Auto 0.5 % (0-2); Eosinophils Absolute Auto 0.4 X10*3/uL (0.0-0.4); Eosinophils Percent Auto 3.3 % (0-4); Hematocrit 50.4 % (42.0-52.0); Hemoglobin 16.8 g/dl (14.0-18.0); Imm Gran Abs Auto 0.04 X10*3/uL (0.00-0.03); Imm Gran Pct Auto 0.3 % (0.0-0.4); Lymphocytes Absolute Auto 5.3 X10*3/uL (1.2-4.9); Lymphocytes Percent Auto 45.5 % (20-40); MANUAL DIFF FLAG SCAN; Mean Corpuscular HGB Conc 33.3 g/dl (31.0-36.0); Mean Corpuscular Hemoglobin 30.6 pg (27.0-33.0); Mean Corpuscular Volume 91.8 fL (80.0-98.0); Mean Platelet Volume 9.2 fL (9.4-12.4); Monocytes Absolute Auto 0.7 X10*3/uL (0.1-1.2); Monocytes Percent Auto 5.9 % (2-11); Neutrophils Absolute Auto 5.2 x10*3/uL (2.0-8.3); Neutrophils Percent Auto 44.5 % (45-73); Platelet Count 217 X10*3/uL (160-400); Red Blood Count 5.49 X10*6/uL (4.60-5.80); SCAN SMEAR FLAG 1; White Blood Count 11.6 X10*3/uL (4.8-10.8)
[2022-12-01 11:59] LABS: SLIDE REVIEW VERIFIED
[2022-12-01 12:13] LABS: Alanine Aminotransferase 15 U/L (0-40); Albumin Level 4.2 g/dL (3.5-5.0); Alkaline Phosphatase 104 U/L (39-117); Anion Gap 15 (12-20); Aspartate Amino Transferase 19 U/L (5-37); Bilirubin Total 0.5 mg/dL (0.0-1.0); Blood Urea Nitrogen 20 mg/dL (9-16); Calcium 10.4 mg/dL (8.4-10.2); Carbon Dioxide 21 mmol/L (22-29); Chloride 104 mmol/L (96-108); Estimated Glomerular Filt Rate > 60; Glucose Random 96 mg/dL (60-115); Potassium 4.3 mmol/L (3.3-5.1); Sodium 136 mmol/L (135-145); Total Protein 6.8 g/dL (6.5-8.0)
== END 2022-12-01 11:02 | disposition home or self-care (01) ==
LOC: HO.BBR 11:01
PROVIDERS: PCP Internal Medicine; Visit Provider Internal Medicine Medical Oncology
DX: D75.1 Secondary polycythemia (principal)
CPT/HCPCS: 36415; 80053; 85014; 85018; 85025; 99195

== ENCOUNTER 2022-12-06 10:04 | Outpatient (REF) | payer MEDICARE, MEDICAID, SELFPAY | END 2022-12-06 10:05 | disposition home or self-care (01) | LOC: HO.HMGCLDS 10:04 | PROVIDERS: Absent Provider Urology; PCP Internal Medicine; Visit Provider Internal Medicine | DX: Z12.5 Encounter for screening for malignant neoplasm of prostate (principal); N40.0 Benign prostatic hyperplasia without lower urinary tract symptoms | CPT/HCPCS: 36415; 84153 ==

== ENCOUNTER → 2022-12-13 11:51 | Outpatient (BNVA) | payer MEDICARE, MEDICAID, SELFPAY | PROVIDERS: PCP Internal Medicine; Visit Provider Urology | DX: N40.1 Benign prostatic hyperplasia with lower urinary tract symptoms (principal); R39.12 Poor urinary stream | CPT/HCPCS: 51798; 99212 ==

== ENCOUNTER 2023-03-03 10:59 | Outpatient (REF) | payer MEDICARE, MEDICAID, SELFPAY ==
[2023-03-03 11:24] LABS: Hematocrit 49.3 % (42.0-52.0); Hemoglobin 16.5 g/dl (14.0-18.0); Mean Corpuscular HGB Conc 33.5 g/dl (31.0-36.0); Mean Corpuscular Hemoglobin 30.4 pg (27.0-33.0); Mean Corpuscular Volume 90.8 fL (80.0-98.0); Mean Platelet Volume 8.9 fL (9.4-12.4); Platelet Count 217 X10*3/uL (160-400); Red Blood Count 5.43 X10*6/uL (4.60-5.80); Red Cell Distribution Width 14.1 % (11.0-16.0); White Blood Count 13.4 X10*3/uL (4.8-10.8)
[2023-03-03 12:19] LABS: SLIDE REVIEW MANUAL DIFF
[2023-03-03 13:04] LABS: Band Neutrophils Percent 0 % (3-5); Eosinophils Absolute Manual 0.1 X10*3/uL (0.0-0.4); Eosinophils Percent Manual 1 % (0-4); Lymphocytes Absolute Manual 6.8 X10*3/uL (1.2-4.9); Lymphocytes Percent Manual 51 % (20-40); Monocytes Absolute Manual 0.1 X10*3/uL (0.1-1.2); Monocytes Percent Manual 1 % (2-11); Neutrophils Absolute Manual 6.3 X10*3/uL (2.0-8.3); Neutrophils Percent Manual 47 % (45-73)
[2023-03-03 13:05] LABS: Platelet Estimate NORMAL (NORMAL); Platelet Morphology Comment NORMAL; RBC Morphology NORMAL; Smudge Cells PRESENT
[2023-03-03 13:16] LABS: Alanine Aminotransferase 17 U/L (0-40); Albumin Level 4.3 g/dL (3.5-5.0); Alkaline Phosphatase 112 U/L (39-117); Anion Gap 15 (12-20); Aspartate Amino Transferase 20 U/L (5-37); Bilirubin Total 0.5 mg/dL (0.0-1.0); Blood Urea Nitrogen 17 mg/dL (9-16); Calcium 10.9 mg/dL (8.4-10.2); Carbon Dioxide 23 mmol/L (22-29); Chloride 101 mmol/L (96-108); Estimated Glomerular Filt Rate 58; Glucose Random 198 mg/dL (60-115); Potassium 4.7 mmol/L (3.3-5.1); Sodium 134 mmol/L (135-145)
== END 2023-03-03 11:00 | disposition home or self-care (01) ==
LOC: HO.BBR 10:59
PROVIDERS: Visit Provider Internal Medicine Medical Oncology
DX: D75.1 Secondary polycythemia (principal)
CPT/HCPCS: 36415; 80053; 85007; 85014; 85018; 85025; 85027; 99195

== ENCOUNTER 2023-03-16 08:32 | Outpatient (REF) | payer MEDICARE, MEDICAID, SELFPAY ==
[2023-03-16 11:30] LABS: Basophils Absolute Auto 0.1 X10*3/uL (0.0-0.2); Basophils Percent Auto 0.6 % (0-2); Eosinophils Absolute Auto 0.4 X10*3/uL (0.0-0.4); Hematocrit 50.3 % (42.0-52.0); Hemoglobin 16.5 g/dl (14.0-18.0); Imm Gran Abs Auto 0.07 X10*3/uL (0.00-0.03); Imm Gran Pct Auto 0.5 % (0.0-0.4); Lymphocytes Percent Auto 58.7 % (20-40); MANUAL DIFF FLAG SCAN; Mean Corpuscular HGB Conc 32.8 g/dl (31.0-36.0); Mean Corpuscular Hemoglobin 30.3 pg (27.0-33.0); Mean Corpuscular Volume 92.3 fL (80.0-98.0); Mean Platelet Volume 9.7 fL (9.4-12.4); Monocytes Absolute Auto 0.7 X10*3/uL (0.1-1.2); Monocytes Percent Auto 4.9 % (2-11); Neutrophils Absolute Auto 4.6 x10*3/uL (2.0-8.3); Neutrophils Percent Auto 32.3 % (45-73); Platelet Count 247 X10*3/uL (160-400); Red Blood Count 5.45 X10*6/uL (4.60-5.80); Red Cell Distribution Width 14.8 % (11.0-16.0); SCAN SMEAR FLAG 1; White Blood Count 14.2 X10*3/uL (4.8-10.8)
[2023-03-16 11:37] LABS: Lymphocytes Absolute Auto 8.3 X10*3/uL (1.2-4.9)
[2023-03-16 11:55] LABS: Alanine Aminotransferase 12 U/L (0-40); Albumin Level 4.6 g/dL (3.5-5.0); Alkaline Phosphatase 92 U/L (39-117); Anion Gap 13 (12-20); Aspartate Amino Transferase 19 U/L (5-37); Bilirubin Total 0.5 mg/dL (0.0-1.0); Blood Urea Nitrogen 37 mg/dL (9-16); Calcium 11.5 mg/dL (8.4-10.2); Carbon Dioxide 23 mmol/L (22-29); Chloride 102 mmol/L (96-108); Estimated Glomerular Filt Rate > 60; Glucose Random 108 mg/dL (60-115); Potassium 4.9 mmol/L (3.3-5.1); Sodium 133 mmol/L (135-145); TSH reflex Free T4 1.44 uIU/mL (0.32-4.0); Total Protein 8.2 g/dL (6.5-8.0)
[2023-03-16 12:03] LABS: SLIDE REVIEW VERIFIED
[2023-03-18 05:28] LABS: LDL Cholesterol Direct 151 mg/dL (<100)
== END 2023-03-16 08:33 | disposition home or self-care (01) ==
LOC: HO.HMGCLDS 08:32
PROVIDERS: PCP Internal Medicine; Visit Provider Internal Medicine
DX: E03.9 Hypothyroidism, unspecified (principal); E66.9 Obesity, unspecified; E78.9 Disorder of lipoprotein metabolism, unspecified; J44.9 Chronic obstructive pulmonary disease, unspecified; K21.9 Gastro-esophageal reflux disease without esophagitis; M54.50 Low back pain, unspecified; N40.0 Benign prostatic hyperplasia without lower urinary tract symptoms; D47.3 Essential (hemorrhagic) thrombocythemia; E21.1 Secondary hyperparathyroidism, not elsewhere classified; F33.9 Major depressive disorder, recurrent, unspecified; I10 Essential (primary) hypertension; T43.595A Adverse effect of other antipsychotics and neuroleptics, initial encounter; Z72.0 Tobacco use
CPT/HCPCS: 36415; 80053; 83721; 84443; 85025

== ENCOUNTER 2023-04-21 09:24 | Outpatient (AMB) | payer MEDICARE, MEDICAID, SELFPAY ==
--- NOTE | 2023-04-21 09:28 | MHC.PC.OV ---
Vital Signs 04/21/23 09:33 Height 5 ft 10 in Weight 223 lb 2 oz BMI 32.0 BP 124/62 Blood Pressure Location Lt brachial Position Sitting Pulse 76 Pulse Source Pulse Oximeter Pulse Oximetry (%) 92 Oxygen Delivery Method Room Air Intake Visit Reasons: 4m follow up HTN Allergies atorvastatin [From LIPITOR] Allergy (Unknown, Verified 03/07/23 13:48) HIGH LFTS Medication List - Last Reconciled 04/21/23 by Binh Lim MD acetaminophen ER 650 mg PO ONCE PRN 30 days amlodipine 5 mg PO DAILY 90 days benztropine 1 mg PO DAILY cholecalciferol (vitamin D3) 50 mcg PO DAILY 90 days dutasteride 0.5 mg PO DAILY 90 days ezetimibe (Zetia) 10 mg PO DAILY fluticasone propionate 44 mcg/actuation 44 mcg inhalation BID 30 days gemfibrozil (Lopid) 600 mg PO BID 90 days levothyroxine 112 mcg PO QAM 90 days lidocaine HCl 4% (Aspercreme (lidocaine HCl)) 1 appl topical BID PRN 30 days lithium carbonate 300 mg PO BID naltrexone 50 mg PO DAILY omega [id number]-fish oil 300-1,000 mg 1 cap PO BID 90 days omeprazole 20 mg PO DAILY 90 days paroxetine HCl (Paxil) 40 mg PO DAILY risperidone microspheres ER 50 mg IM Q2W tamsulosin (Flomax) 0.8 mg (2 x 0.4 mg) PO DAILY 90 days triamcinolone acetonide 0.5% 1 appl topical DAILY vitamin B complex 1 cap PO DAILY Tobacco use date assessed: 04/21/23 Fall risk assessment: No Falls in past year Last assessed Fall Risk: 04/21/23 Dental Screening Dental Screen Date: 04/21/23 Did you have a dental visit in the last 12 months?: No Did you have a dental problem in the last 6 months where you did not have access to dental care?: No Was dental information given to patient?: No HPI 4m follow up HTN HPI Details Patient is 61-year-old gentleman Came in for his regular follow-up appointment with the staff .? 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 And staff member present today is helping him with groceries Patient have psychiatric illness.? Taking psychiatric medication through Psychiatry.? Continue to smoke in spite of me advising him to stop Patient has? seen Dr. Mix for hypercalcemia which was thought to be secondary to lithium.? Endocrinology note from last year reviewed again which states to return if the level is above 11.2. His level continued to fluctuate up and down He is having labs done every 4 months before visit BPH treatment through urology?,Patient is on dutasteride and tamsulosin Hematology [facility] Dr. Osorio, for management of erythrocytosis GERD is stable with omeprazole 20 mg once a day. Patient is also on levothyroxine 112 mcg daily Lipids controlled with gemfibrozil and Zetia Patient is? on a Flovent, continue to smoke marijuana, has chronic smoker's cough Osteoarthritis knees, I have sent Tylenol 650 mg prescription patient may take that once as needed. Follow-up 4 months ? ? 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 Sister No problems noted. Sister No problems noted. Social History Household Members: None Housing: Apartment Are you a primary client care specialist to a significant other at home: No Do you presently have visiting nurse or other home services: Yes Alcohol intake: former Patient Tobacco Use Status: Current everyday Tobacco user Tobacco use type: Cigar Cigarette Packs Per Day: 1 e-Cigarette/Vaping Use: Never Used Substance Use Type: Marijuana service: No Current occupational status: disabled Cognitive needs: No Hearing needs: No Vision needs: No Questionnaire PHQ-9 Over the last 2 weeks, how often have you been bothered by any of the following problems? 42801 - PHQ-9 Billing: Patient declined-do not bill Source: Developed by Drs. Jimy Franco, Tyler Ashraf and colleagues, with an educational herb from [employer]. Thrive Questionnaire Date Thrive assessed: 04/21/23 I am a: Patient What is your living situation today?: I have a steady place to live Within the past 12 months, did the food you bought not last and you didn't have the money to get more?: I choose not to answer this question Within the past 12 months, did you worry whether your food would run out before you got money to buy more?: I choose not to answer this question Do you have trouble paying for medicines?: I choose not to answer this question Do you have trouble getting transportation to medical appointments?: I choose not to answer this question Do you have trouble paying your heating and electricity bill?: I choose not to answer this question Do you have trouble taking care of your child, family member or friend?: I choose not to answer this question Do you have trouble with day-to-day activities such as bathing, preparing meals, shopping, managing finances, etc.?: I choose not to answer this question Are you currently unemployed and looking for a job?: I choose not to answer this question Are you interested in more education?: I choose not to answer this question AUDIT C Alcohol Use Questionnaire (AUDIT-C) 1. How often do you have a drink containing alcohol?: Never 3. How often do you have six or more drinks on one occasion?: Never Total Score: 0 Score Reviewed/Action Taken: Yes PATSY-7 AMB Questionnaire PATSY-7 Date PATSY - 7 assessed: 04/21/23 Source: Developed by Drs. Jimy Franco, Madison Berry, Tyler Guy and colleagues, with an educational herb from [employer]. PATSY-7 Assessment Billing PATSY-7 Assessment Tool: pt declined-do not bill Review of Systems Const Denies chills and Denies fever(s) ENT Denies epistaxis and Denies nasal discharge Card Denies chest pain Resp Denies chest congestion, Denies cough and Denies hemoptysis GI Denies diarrhea and Denies nausea Skin/Breast Denies rash Neuro Reports no additional complaints Psych Reports no additional complaints Endo Reports no additional complaints Physical exam (Primary Care) Vital Signs: Last Vital Signs Pulse 76 04/21/23 09:33 BP 124/62 04/21/23 09:33 Pulse Ox 92 04/21/23 09:33 Oxygen Delivery Method Room Air 04/21/23 09:33 BMI result Body Mass Index 32.0 Tobacco/Smoking Status: Tobacco use Status Tobacco use date assessed 04/21/23 04/21/23 09:33 Patient Tobacco Use Status Current everyday Tobacco 04/21/23 09:30 Tobacco use type Cigar 04/21/23 09:30 e-Cigarette/Vaping Use Never Used 04/21/23 09:30 Thrive Assessment: Date of Thrive Assessment Date Thrive assessed 04/21/23 04/21/23 09:53 Const General: cooperative, comfortable and no acute distress Orientation/consciousness: patient oriented x3 HENMT Head: Yes normocephalic Eyes General: appearance normal, both eyes and all related structures Neck Neck: Yes supple Resp Effort & Inspection: normal respiratory effort, no cough and no stridor Cardio Rhythm: regular rhythm Skin General skin exam: turgor normal Neuro General: patient oriented x3, tone normal and moves all extremities Extrem Right lower extremity: no edema Left lower extremity: no edema Assessment and Plan Assessment & Plan (1) Hypothyroidism: Code(s): E03.9 - Hypothyroidism, unspecified (2) Lipid disorder: Code(s): E78.9 - Disorder of lipoprotein metabolism, unspecified (3) COPD (chronic obstructive pulmonary disease): Code(s): J44.9 - Chronic obstructive pulmonary disease, unspecified (4) BPH (benign prostatic hyperplasia): Code(s): N40.0 - Benign prostatic hyperplasia without lower urinary tract symptoms (5) Alcoholic liver disease: Code(s): K70.9 - Alcoholic liver disease, unspecified (6) Hypertension, essential: Code(s): I10 - Essential (primary) hypertension (7) Tobacco abuse: Code(s): Z72.0 - Tobacco use (8) Thrombocytosis: Comment: Management through Hematology [facility] Code(s): D47.3 - Essential (hemorrhagic) thrombocythemia (9) Depression, major, recurrent: Onset Date: Unknown Comment: Management through Psychiatry Code(s): F33.9 - Major depressive disorder, recurrent, unspecified (10) 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 And staff member present today is helping him with groceries Patient have psychiatric illness.? Taking psychiatric medication through Psychiatry.? Continue to smoke in spite of me advising him to stop Patient has? seen Dr. iMx for hypercalcemia which was thought to be secondary to lithium.? Endocrinology note from last year reviewed again which states to return if the level is above 11.2. His level continued to fluctuate up and down He is having labs done every 4 months before visit BPH treatment through urology?,Patient is on dutasteride and tamsulosin Hematology [facility] Dr. Osorio, for management of erythrocytosis GERD is stable with omeprazole 20 mg once a day. Patient is also on levothyroxine 112 mcg daily Lipids controlled with gemfibrozil and Zetia Patient is? on a Flovent, continue to smoke marijuana, has chronic smoker's cough Osteoarthritis knees, I have sent Tylenol 650 mg prescription patient may take that once as needed. Follow-up 4 months ? ? Orders: Orders Comprehensive Met. Panel Today E03.9 - Hypothyroidism, unspecified, E78.9 - Disorder of lipoprotein metabolism, unspecified, I10 - Essential (primary) hypertension, J44.9 - Chronic obstructive pulmonary disease, unspecified, K70.9 - Alcoholic liver disease, unspecified, N40.0 - Benign prostatic hyperplasia without lower urinary tract symptoms TSH reflex Free T4 Today E03.9 - Hypothyroidism, unspecified, E78.9 - Disorder of lipoprotein metabolism, unspecified, I10 - Essential (primary) hypertension, J44.9 - Chronic obstructive pulmonary disease, unspecified, K70.9 - Alcoholic liver disease, unspecified, N40.0 - Benign prostatic hyperplasia without lower urinary tract symptoms Complete Blood Count Auto Diff Today E03.9 - Hypothyroidism, unspecified, E78.9 - Disorder of lipoprotein metabolism, unspecified, I10 - Essential (primary) hypertension, J44.9 - Chronic obstructive pulmonary disease, unspecified, K70.9 - Alcoholic liver disease, unspecified, N40.0 - Benign prostatic hyperplasia without lower urinary tract symptoms Coding Level of Care Code Est Pt Level 4 (66752) Diagnoses Hypothyroidism E03.9 Lipid disorder E78.9 COPD (chronic obstructive pulmonary disease) J44.9 BPH (benign prostatic hyperplasia) N40.0 Alcoholic liver disease K70.9 Hypertension, essential I10 Tobacco abuse Z72.0 Thrombocytosis D47.3 Depression, major, recurrent F33.9 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
[2023-04-21 09:33] VITALS: BP 124/62; PULSE 76; O2SAT 92; BMI 32.0
== END 2023-04-21 09:52 | disposition home or self-care (01) ==
PROVIDERS: PCP Internal Medicine; Visit Provider Internal Medicine
DX: E03.9 Hypothyroidism, unspecified (principal); J44.9 Chronic obstructive pulmonary disease, unspecified; K70.9 Alcoholic liver disease, unspecified; I10 Essential (primary) hypertension; E78.9 Disorder of lipoprotein metabolism, unspecified; N40.0 Benign prostatic hyperplasia without lower urinary tract symptoms; Z72.0 Tobacco use; D47.3 Essential (hemorrhagic) thrombocythemia; F33.9 Major depressive disorder, recurrent, unspecified; E21.1 Secondary hyperparathyroidism, not elsewhere classified; T43.595A Adverse effect of other antipsychotics and neuroleptics, initial encounter
CPT/HCPCS: 99214

== ENCOUNTER 2023-06-02 10:40 | Outpatient (REF) | payer MEDICARE, MEDICAID, SELFPAY | END 2023-06-02 10:41 | disposition home or self-care (01) | LOC: HO.BBR 10:40 | PROVIDERS: PCP Internal Medicine; Visit Provider Internal Medicine Medical Oncology | DX: D75.1 Secondary polycythemia (principal) | CPT/HCPCS: 99195 ==

== ENCOUNTER 2023-06-21 10:49 | Outpatient (AMB) | payer MEDICARE, MEDICAID, SELFPAY ==
--- NOTE | 2023-06-21 11:00 | A.OFFVIS_ITS ---
Intake Vital Signs 3 06/21/23 11:01 Height 5 ft 10 in Weight 221 lb 2 oz BMI 31.7 BP 132/68 Blood Pressure Location Lt brachial Position Sitting Pulse 77 Pulse Source Pulse Oximeter Pulse Oximetry (%) 93 Oxygen Delivery Method Room Air Intake Visit Reasons: V [id number] Allergies atorvastatin [From LIPITOR] Allergy (Unknown, Verified 06/02/23 10:19) HIGH LFTS Medication List - Last Reconciled 06/21/23 by Binh Lim MD acetaminophen ER 650 mg PO ONCE PRN 30 days amlodipine 5 mg PO DAILY 90 days benztropine 1 mg PO DAILY cholecalciferol (vitamin D3) 50 mcg PO DAILY 90 days dutasteride 0.5 mg PO DAILY 90 days ezetimibe (Zetia) 10 mg PO DAILY fluticasone propionate 44 mcg/actuation 44 mcg inhalation BID 30 days gemfibrozil (Lopid) 600 mg PO BID 90 days levothyroxine 112 mcg PO QAM 90 days lidocaine HCl 4% (Aspercreme (lidocaine HCl)) 1 appl topical BID PRN 30 days lithium carbonate 300 mg PO BID naltrexone 50 mg PO DAILY omega 7-pfs-gtp-fish oil 300-1,000 mg 1 cap PO BID 90 days omeprazole 20 mg PO DAILY 90 days paroxetine HCl (Paxil) 40 mg PO DAILY risperidone microspheres ER 50 mg IM Q2W tamsulosin (Flomax) 0.8 mg (2 x 0.4 mg) PO DAILY 90 days triamcinolone acetonide 0.5% 1 appl topical DAILY vitamin B complex 1 cap PO DAILY HPI SWV G0439 2 HPI0 Details Patient is complaining of pain in his right foot when he walks On examination I noticed that he has developed couple of what is which is causing discomfort. Patient will need a referral to associate spa director Blood pressure is stable GERD is stable Patient is also on levothyroxine 112 And medication for lipid control Labs needs to be repeated with next visit HPI Comments 2 History of Present Illness0 Details AWV Medical/social history reviewed Past medical history reviewed [place] of care / care team list updated Surgical/ hospitalization history reviewed Current medications including OTC and supplements reviewed Family history reviewed Tobacco controlled form updated Alcohol use form updated Illicit drug use in social history reviewed Current diagnosis of depression ?screening updated Appropriate PHQ 2/PHQ-9 completed . Vital signs reviewed Alcohol tobacco drug use reviewed and discussed . MMSE completed . ? Fall risk: ?Assessed Fall history: ?None Have you had any falls with injury in the past year?? No Have you had 2 or more falls in the past year?? No Fall risk assessment completed Home safety discussed with the patient Functional ability assessed and discussed and documented Activities of daily living reviewed and appropriate actions taken . HRA filled out by the patient reviewed by provider and scanned . Appropriate written screening schedule established . Any health advise needed provided . Advance care planning discussed with the patient appropriate paperwork filled and scanned . Examination IPPE/AWE: Balance intact Romberg intact Tandem walk failed walk-in turn intact rise from sit to stand intact . ?Hearing ?whisper test pass . Medication list reviewed, patient is stable on medications All other providers patient is seeing discussed and noted . 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 Encounter for general adult medical examination with abnormal findings Alcoholic liver disease Schizoaffective disorder Depression, major, recurrent (Unknown) Thrombocytosis Obesity Tobacco abuse BPH (benign prostatic hyperplasia) COPD (chronic obstructive pulmonary disease) Lipid disorder Chronic GERD Hypothyroidism Surgical History History of surgery History of hernia repair Family History Father HTN (hypertension) CVD (cardiovascular disease) Sister AIDS Maternal Grandfather Unknown family medical history Maternal Grandmother Unknown family medical history Paternal Grandfather Unknown family medical history Paternal Grandmother Unknown family medical history Sister No problems noted. Sister No problems noted. Sister No problems noted. Social History Household Members: None Housing: Apartment Are you a primary healthcare or medical to a significant other at home: No Do you presently have visiting nurse or other home services: Yes Alcohol intake: former Patient Tobacco Use Status: Current everyday Tobacco user Tobacco use type: Cigar Cigarette Packs Per Day: 1 e-Cigarette/Vaping Use: Never Used Substance Use Type: Marijuana service: No Current occupational status: disabled Cognitive needs: No Hearing needs: No Vision needs: No Questionnaire Medicare Wellness Checkup What gender do you identify with?: male During the past 4 weeks, how much have you been bothered by emotional problems such as feeling anxious, depressed, irritable, sad or downhearted, and blue?: n ot at all During the past 4 weeks, has your physical & emotional health limited your social activities with family, friends, neighbors, or groups?: not at all During the past 4 weeks, how much bodily pain have you generally had?: moderate pain During the past 4 weeks, was someone available to help you if you needed & wanted help?: yes, quite a bit During the past 4 weeks, what was the hardest physical activity you could do for at least 2 minutes?: light Can you get to places out of walking distance without help? (For eg., can you travel alone on buses, taxis or drive your car?): No Can you go shopping for groceries or clothes without someone's help?: No Can you prepare your own meals?: No Can you do your housework without help?: No Because of any health problems, do you need the help of another person with your personal care needs such as eating, bathing, dressing or getting around the house?: Yes Can you handle your own money without help?: No During the past 4 weeks, how would you rate your health in general?: fair During the past 4 weeks how have things been going for you?: good & bad parts about equal Are you having difficulties driving your car?: not applicable, I don't use a car Do you always fasten your seat belt when you are in a car?: yes, usually During past 4 weeks, have you been bothered by the following: never: Falling or dizzy when standing up, Sexual problems?, Trouble eating well?, Teeth or denture problems? and Problems using the telephone? and often: Tiredness or fatigue? Have you fallen 2 or more times in the past year?: No Are you afraid of falling?: Yes Are you a smoker?: yes, but I'm not ready to quit During the past 4 weeks, how many drinks of wine, beer, or other alcoholic beverages did you have?: no alcohol at all Do you exercise for about 20 minutes 3 or more times a week?: no, I usually do not exercise this much Have you been given information to help with the following?: yes: Hazards in your house that might hurt you? and yes: Keeping track of your medications? How often do you have trouble taking medicines the way you have been told to take them?: I always take medicine as prescribed How confident are you that you can control & manage most of your health problems?: somewhat confident What is your race?: White Mini Mental State Exam (MMSE) Orientation What is the (year) (season) (date) (day) (month)?: year, season, date, day and month Where are we (state) (county) (town or city) (hospital) (floor)?: state, county, town or city, hospital/clinic and floor Score Score: 10 Activity of Daily Living Bathing - sponge bath, tub bath or shower: receives no assistance (gets in/out by self, if usual bathing means Dressing - getting clothes from closets & drawers, including inner/outer garments & fasteners.: gets clothes & gets completely dressed without help Toileting - going to the 'toilet room' for urine/bowel elimination & cleaning self/arranging clothes: goes to toilet room, cleans self, arranges clothes without help Transfer: moves in & out of bed and chair without help (may use support object) Feeding: feeds self without help Total Score: 0 Information obtained from: patient Using telephone: independent Traveling: dependent Shopping: dependent Preparing meals: dependent Housework: dependent Taking medicine: dependent Managing money: dependent PHQ-9 Over the last 2 weeks, how often have you been bothered by any of the following problems? 1. Little interest or pleasure in doing things: not at all 2. Feeling down, depressed, or hopeless: several days 3. Trouble falling or staying asleep, or sleeping too much: not at all 4. Feeling tired or having little energy: several days 5. Poor appetite or overeating: not at all 6. Feeling bad about yourself - or that you are a failure or have let yourself or your family down: not at all 7. Trouble concentrating on things, such as reading the newspaper or watching television: several days 8. Moving or speaking so slowly that other people could have noticed. Or the opposite - being so fidgety or restless that you have been moving around a lot more than usual: not at all 9. Thoughts that you would be better off or of hurting yourself in some way: not at all Total score: 3 Depression Screening Interpretation: Negative Depression Screening Done: Yes 07661 - PHQ-9 Billing: Yes Source: Developed by Drs. Jimy Franco, Madison Berry, Tyler Guy and colleagues, with an educational herb from [employer]. Review of Systems Const All systems reviewed & are unremarkable except as noted in HPI and below Physical Exam Vital Signs: Last Vital Signs Pulse 77 06/21/23 11:01 BP 132/68 06/21/23 11:01 Pulse Ox 93 06/21/23 11:01 Oxygen Delivery Method Room Air 06/21/23 11:01 BMI result Body Mass Index 31.7 Const General: no acute distress Orientation/consciousness: patient oriented x3 Eyes General: appearance normal, both eyes and all related structures Resp Effort & Inspection: normal respiratory effort and able to speak in complete sentences Auscultation: clear to auscultation bilaterally Cardio Other: S1 S2 Neuro General: patient oriented x3 Extrem Other: Right plantar aspect 2 warts, feet hygiene poor Ankle/foot/toe images: 2 1. wart 2. wart Psych Mental Status: mental status grossly normal Assessment & Plan Assessment & Plan (1) Medicare annual wellness visit, subsequent: Code(s): Z00.00 - Encounter for general adult medical examination without abnormal findings (2) Plantar wart of right foot: Code(s): B07.0 - Plantar wart (3) Hypothyroidism: Code(s): E03.9 - Hypothyroidism, unspecified Qualifiers: Hypothyroidism type: unspecified Qualified Code(s): E03.9 - Hypothyroidism, unspecified (4) BPH (benign prostatic hyperplasia): Code(s): N40.0 - Benign prostatic hyperplasia without lower urinary tract symptoms Qualifiers: Lower urinary tract symptom presence: symptoms present Lower urinary tract symptom detail: urinary frequency Qualified Code(s): N40.1 - Benign prostatic hyperplasia with lower urinary tract symptoms; R35.0 - Frequency of micturition (5) Lipid disorder: Code(s): E78.9 - Disorder of lipoprotein metabolism, unspecified (6) Tobacco abuse: Code(s): Z72.0 - Tobacco use (7) Chronic GERD: Code(s): K21.9 - Gastro-esophageal reflux disease without esophagitis (8) Obesity: Code(s): E66.9 - Obesity, unspecified Qualifiers: Obesity type: due to excess calories Obesity classification: adult class 1 (BMI 30 - 34.9) Serious obesity comorbidity presence: with serious comorbidity Body mass index: BMI 31.0-31.9 Qualified Code(s): E66.09 - Other obesity due to excess calories; Z68.31 - Body mass index [BMI] 31.0-31.9, adult (9) Tobacco abuse counseling: Code(s): Z71.6 - Tobacco abuse counseling Plan Patient is complaining of pain in his right foot when he walks On examination I noticed that he has developed couple of what is which is causing discomfort. Patient will need a referral to associate spa director Blood pressure is stable GERD is stable Patient is also on levothyroxine 112 And medication for lipid control Labs needs to be repeated with next visit Continue to smoke, once again smoking has its discussed with the patient he tells me that since I have told him last he has tried to cut down further. 5 minute spent discussing tobacco abuse Orders: Referrals 2 Podiatry Referral B07.0 - Plantar wart Quality Reporting (2019) Adult ([facility] 138//) Depression screening performed: Yes BMI screening not done: Yes Depression/Bipolar (159/160/161/177) PHQ-9: Total score: 3 Coding Level of Care Code Medicare Subsequent (G0439) Est Pt Level 4 (32495) Diagnoses Medicare annual wellness visit, subsequent Z00.00 Plantar wart of right foot B07.0 Hypothyroidism, unspecified type E03.9 Hypothyroidism type: unspecified Benign prostatic hyperplasia with urinary frequency N40.1; R35.0 Lower urinary tract symptom presence: symptoms present Lower urinary tract symptom detail: urinary frequency Lipid disorder E78.9 Tobacco abuse Z72.0 Chronic GERD K21.9 Class 1 obesity due to excess calories with serious comorbidity and body mass index (BMI) of 31.0 to 31.9 in adult E66.09; Z68.31 Obesity type: due to excess calories Obesity classification: adult class 1 (BMI 30 - 34.9) Serious obesity comorbidity presence: with serious comorbidity Body mass index: BMI 31.0-31.9 Tobacco abuse counseling Z71.6 CPT Codes Advance Care Planning - Advance Care Planning discussion: On file, no changes ([id number]) Advance Care Planning Advance Care Planning discussion: On file, no changes Forms completed: AUGUSTINE
[2023-06-21 11:01] VITALS: BP 132/68; PULSE 77; O2SAT 93; BMI 31.7
== END 2023-06-21 11:31 | disposition home or self-care (01) ==
PROVIDERS: Visit Provider Internal Medicine
DX: Z00.00 Encounter for general adult medical examination without abnormal findings (principal); B07.0 Plantar wart; E03.9 Hypothyroidism, unspecified; N40.1 Benign prostatic hyperplasia with lower urinary tract symptoms; R35.0 Frequency of micturition; E78.9 Disorder of lipoprotein metabolism, unspecified; Z72.0 Tobacco use; K21.9 Gastro-esophageal reflux disease without esophagitis; E66.09 Other obesity due to excess calories; Z68.31 Body mass index [BMI] 31.0-31.9, adult; Z71.6 Tobacco abuse counseling
CPT/HCPCS: 1123F; G0439

== ENCOUNTER 2023-06-28 12:55 | Outpatient (AMB) | payer MEDICARE, MEDICAID, SELFPAY ==
--- NOTE | 2023-06-28 13:11 | MHC.OFFVIS ---
Intake Intake Visit Reasons: 6 month/ PVR Intake Note: Patient is Present for Follow Up Urology Medication: Dutasteride, Tamsulosin Antibiotic Allergies: None Blood Thinners: None Pharmacy: [facility] PVR: 613 Allergies atorvastatin [From LIPITOR] Allergy (Unknown, Verified 06/28/23 13:14) HIGH LFTS Medication List - Last Reconciled 06/28/23 by Julio Allen MD acetaminophen ER 650 mg PO ONCE PRN 30 days amlodipine 5 mg PO DAILY 90 days benztropine 1 mg PO DAILY cholecalciferol (vitamin D3) 50 mcg PO DAILY 90 days dutasteride 0.5 mg PO DAILY 90 days ezetimibe (Zetia) 10 mg PO DAILY fluticasone propionate 44 mcg/actuation 44 mcg inhalation BID 30 days gemfibrozil (Lopid) 600 mg PO BID 90 days levothyroxine 112 mcg PO QAM 90 days lidocaine HCl 4% (Aspercreme (lidocaine HCl)) 1 appl topical BID PRN 30 days lithium carbonate 300 mg PO BID naltrexone 50 mg PO DAILY omega 8-nen-fhh-fish oil 300-1,000 mg 1 cap PO BID 90 days omeprazole 20 mg PO DAILY 90 days paroxetine HCl (Paxil) 40 mg PO DAILY risperidone microspheres ER 50 mg IM Q2W tamsulosin (Flomax) 0.8 mg (2 x 0.4 mg) PO DAILY 90 days triamcinolone acetonide 0.5% 1 appl topical DAILY vitamin B complex 1 cap PO DAILY HPI HPI Comments History of Present Illness Details Kevin is a pleasant male. He is a patient of Dr. Lim. 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 Encounter for general adult medical examination with abnormal findings Alcoholic liver disease Schizoaffective disorder Depression, major, recurrent (Unknown) Thrombocytosis Obesity Tobacco abuse BPH (benign prostatic hyperplasia) COPD (chronic obstructive pulmonary disease) Lipid disorder Chronic GERD Hypothyroidism Surgical History History of surgery History of hernia repair Family History Father HTN (hypertension) CVD (cardiovascular disease) Sister AIDS Maternal Grandfather Unknown family medical history Maternal Grandmother Unknown family medical history Paternal Grandfather Unknown family medical history Paternal Grandmother Unknown family medical history Sister No problems noted. Sister No problems noted. Sister No problems noted. Social History Household Members: None Housing: Apartment Are you a primary day care assistant to a significant other at home: No Do you presently have visiting nurse or other home services: Yes Alcohol intake: former Patient Tobacco Use Status: Current everyday Tobacco user Tobacco use type: Cigar Cigarette Packs Per Day: 1 e-Cigarette/Vaping Use: Never Used Substance Use Type: Marijuana service: No Current occupational status: disabled Cognitive needs: No Hearing needs: No Vision needs: No Review of Systems Const Denies chills and Denies fever(s) Card Reports no additional complaints and Denies syncope Resp Denies cough GI Denies abdominal pain and Denies heartburn Reports as per HPI and Denies change in libido Neuro Denies syncope Psych Denies change in libido Endo Denies change in libido Physical Exam Const General: cooperative, healthy appearing, comfortable and no acute distress Orientation/consciousness: patient oriented x3 HEENT Face and sinus: Yes normal facial exam Mouth: moist mucous membranes Neck Neck: Yes normal visual inspection, Yes full ROM and Yes trachea midline Chest Chest palpation & inspection: normal inspection of the chest Resp Effort & Inspection: normal respiratory effort, able to speak in complete sentences and no respiratory distress GI Inspection: Yes normal to inspection Back/Spine/Pelvis Cervical Spine: normal cervical lordosis Thoracic/Lumbar Spine: thoracic and lumbar spine normal to inspection Skin General skin exam: no rashes or lesions noted Neuro General: patient oriented x3, gait normal, tone normal and moves all extremities Extrem General: Yes normal to inspection and Yes capillary refill normal Office Procedures Post Void Residual Post Residual Void Post Void Residual (PVR): [id number] Void Residual by ultrasound Assessment & Plan Assessment & Plan (1) Weak urinary stream: Code(s): R39.12 - Poor urinary stream (2) Incomplete emptying of bladder due to benign prostatic hyperplasia: Code(s): N40.1 - Benign prostatic hyperplasia with lower urinary tract symptoms; R33.9 - Retention of urine, unspecified Plan Six month follow-up Orders: Orders AMB Post Void Residual by ultrasound Today N40.1 - Benign prostatic hyperplasia with lower urinary tract symptoms, R35.0 - Frequency of micturition Medications: Refilled tamsulosin (Flomax) 0.8 mg (2 x 0.4 mg) PO DAILY 90 days 180 caps 1RF N40.0 - Benign prostatic hyperplasia without lower urinary tract symptoms dutasteride 0.5 mg PO DAILY 90 days 90 caps 1RF Patient Instructions: Imaging studies, laboratory and physical exam results were discussed and reviewed in detail. No major barriers to patient understanding were identified. An opportunity to ask questions regarding the treatment plan was provided. All questions were answered. The patient expressed understanding and agreement with the above treatment plan. The patient is aware they should contact our office by phone for worsening of their current condition or the appearance of new urologic symptoms. Compliance is encouraged with any medications and followup testing that is ordered. It is a privilege to participate in the urologic care of your patient. If you have any questions or concerns regarding treatment for the above conditions, or other urologic issues, please do not hesitate to contact me. The office telephone contact is [phone]. This note is constructed using voice recognition software. While every effort has been made to ensure accuracy seaman errors may have been included. Yours sincerely, Dr Julio Allen MD, [facility] - Urology Providers of Expert, Compassionate Care for the Genitourinary System Coding Level of Care Code Est Pt Level 3 (81216) Diagnoses Weak urinary stream R39.12 Incomplete emptying of bladder due to benign prostatic hyperplasia N40.1; R33.9 CPT Codes Post Residual Void - PVR CPT Code: [id number] Void Residual by ultrasound ([id number])
== END 2023-06-28 13:38 | disposition home or self-care (01) ==
PROVIDERS: PCP Internal Medicine; Visit Provider Urology
DX: N40.1 Benign prostatic hyperplasia with lower urinary tract symptoms (principal); R39.12 Poor urinary stream; R33.9 Retention of urine, unspecified
CPT/HCPCS: 99213

== ENCOUNTER → 2023-06-28 12:55 | Outpatient (BNVA) | payer MEDICARE, MEDICAID, SELFPAY | PROVIDERS: Visit Provider Urology | DX: N40.1 Benign prostatic hyperplasia with lower urinary tract symptoms (principal); N13.8 Other obstructive and reflux uropathy; R35.0 Frequency of micturition; R39.12 Poor urinary stream | CPT/HCPCS: 51798; 99212 ==

== ENCOUNTER 2023-09-04 10:07 | Outpatient (REF) | payer MEDICARE, MEDICAID, SELFPAY ==
[2023-09-04 10:26] LABS: Basophils Absolute Auto 0.1 X10*3/uL (0.0-0.2); Basophils Percent Auto 0.6 % (0-2); Eosinophils Absolute Auto 0.5 X10*3/uL (0.0-0.4); Eosinophils Percent Auto 3.6 % (0-4); Hematocrit 49.1 % (42.0-52.0); Imm Gran Abs Auto 0.04 X10*3/uL (0.00-0.03); Imm Gran Pct Auto 0.3 % (0.0-0.4); Lymphocytes Percent Auto 57.1 % (20-40); Mean Corpuscular HGB Conc 32.6 g/dl (31.0-36.0); Mean Corpuscular Hemoglobin 30.3 pg (27.0-33.0); Mean Platelet Volume 9.2 fL (9.4-12.4); Monocytes Absolute Auto 0.6 X10*3/uL (0.1-1.2); Monocytes Percent Auto 4.6 % (2-11); Neutrophils Absolute Auto 4.6 x10*3/uL (2.0-8.3); Neutrophils Percent Auto 33.8 % (45-73); Platelet Count 223 X10*3/uL (160-400); Red Blood Count 5.28 X10*6/uL (4.60-5.80); Red Cell Distribution Width 14.1 % (11.0-16.0); SCAN SMEAR FLAG 1; White Blood Count 13.7 X10*3/uL (4.8-10.8)
[2023-09-04 10:32] LABS: Lymphocytes Absolute Auto 7.8 X10*3/uL (1.2-4.9); MANUAL DIFF FLAG NO
[2023-09-04 10:52] LABS: Alanine Aminotransferase 11 U/L (0-40); Albumin Level 4.4 g/dL (3.5-5.0); Alkaline Phosphatase 80 U/L (39-117); Anion Gap 14 (12-20); Aspartate Amino Transferase 16 U/L (5-37); Bilirubin Total 0.3 mg/dL (0.0-1.0); Blood Urea Nitrogen 27 mg/dL (9-16); Calcium 10.7 mg/dL (8.4-10.2); Carbon Dioxide 23 mmol/L (22-29); Chloride 107 mmol/L (96-108); Estimated Glomerular Filt Rate > 60; Glucose Random 106 mg/dL (60-115); Potassium 4.7 mmol/L (3.3-5.1); Sodium 139 mmol/L (135-145); Total Protein 7.4 g/dL (6.5-8.0)
== END 2023-09-04 10:08 | disposition home or self-care (01) ==
LOC: HO.BBR 10:07
PROVIDERS: PCP Internal Medicine; Visit Provider Internal Medicine Medical Oncology
DX: D75.1 Secondary polycythemia (principal)
CPT/HCPCS: 36415; 80053; 85018; 85025; 99195

== ENCOUNTER 2023-12-04 11:16 | Outpatient (REF) | payer MEDICARE, MEDICAID, SELFPAY | END 2023-12-04 11:17 | disposition home or self-care (01) | LOC: HO.BBR 11:16 | PROVIDERS: PCP Internal Medicine; Visit Provider Internal Medicine Medical Oncology | DX: D75.1 Secondary polycythemia (principal) | CPT/HCPCS: 85018; 99195 ==

== ENCOUNTER 2024-01-24 11:55 | Outpatient (AMB) | payer MEDICARE, MEDICAID, SELFPAY ==
--- NOTE | 2024-01-24 11:59 | MHC.PC.OV ---
Vital Signs 01/24/24 12:00 Height 5 ft 10 in Weight 218 lb 8 oz BMI 31.3 BP 130/58 L Blood Pressure Location Rt brachial Position Sitting Pulse 85 Pulse Source Pulse Oximeter Pulse Oximetry (%) 93 Oxygen Delivery Method Room Air Intake Visit Reasons: Med Refill Allergies atorvastatin [From LIPITOR] Allergy (Unknown, Verified 01/24/24 12:06) HIGH LFTS Medication List - Last Reconciled 01/24/24 by Binh Lim MD acetaminophen ER 650 mg PO ONCE PRN 30 days amlodipine 5 mg PO DAILY 90 days benztropine 1 mg PO DAILY budesonide 90 mcg/actuation (Pulmicort Flexhaler) 1 inh inhalation BID cholecalciferol (vitamin D3) 50 mcg PO DAILY 90 days dutasteride 0.5 mg PO DAILY 90 days ezetimibe (Zetia) 10 mg PO DAILY gemfibrozil (Lopid) 600 mg PO BID 90 days levothyroxine 112 mcg PO QAM 90 days lidocaine HCl 4% (Aspercreme (lidocaine HCl)) 1 appl topical BID PRN 30 days lithium carbonate 300 mg PO BID omega 4-mgb-gqn-fish oil 300-1,000 mg 1 cap PO BID 90 days omeprazole 20 mg PO DAILY 90 days paroxetine HCl (Paxil) 40 mg PO DAILY risperidone microspheres ER 50 mg IM Q2W tamsulosin (Flomax) 0.8 mg (2 x 0.4 mg) PO DAILY 90 days vitamin B complex 1 cap PO DAILY Tobacco use date assessed: 01/24/24 Fall risk assessment: No Falls in past year Last assessed Fall Risk: 01/24/24 Dental Screening Dental Screen Date: 01/24/24 Did you have a dental visit in the last 12 months?: No Did you have a dental problem in the last 6 months where you did not have access to dental care?: No Was dental information given to patient?: No HPI Med Refill HPI Details Patient is 63-year-old gentleman Came in for his regular follow-up appointment with the staff He tells me that he has been having blurring of vision in his left eye for the past 2-3 months It also gets pink and then get better on its own. Patient has been declining to see eye doctor staff member tells me I have placed a referral for him to see urgently, also talked with the patient and explained to him that it is very important that he goes and sees the doctor otherwise he may lose his vision He understands and agrees .? He does have of personal dust box worker come over to help him with his cleaning and cooking.? Patient have psychiatric illness.? Taking psychiatric medication through Psychiatry.? Continue to smoke in spite of me advising him to stop Patient has? seen Dr. Mix for hypercalcemia which was thought to be secondary to lithium.? Patient has been discharged from the practice unless his calcium level goes above 11.2. His level continued to fluctuate up and down BPH treatment through urology?,Patient is on dutasteride and tamsulosin Hematology [facility] Dr. Osorio, for management of erythrocytosis GERD is stable with omeprazole 20 mg once a day. Patient is also on levothyroxine 112 mcg daily Lipids controlled with gemfibrozil and Zetia Patient is? on a Flovent, continue to smoke marijuana, has chronic smoker's cough Osteoarthritis knees, taking Tylenol as needed Follow-up 4 months ? ? 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 Encounter for general adult medical examination with abnormal findings Alcoholic liver disease Schizoaffective disorder Depression, major, recurrent (Unknown) Thrombocytosis Obesity Tobacco abuse BPH (benign prostatic hyperplasia) COPD (chronic obstructive pulmonary disease) Lipid disorder Chronic GERD Hypothyroidism Surgical History History of surgery History of hernia repair Family History Father HTN (hypertension) CVD (cardiovascular disease) Sister AIDS Maternal Grandfather Unknown family medical history Maternal Grandmother Unknown family medical history Paternal Grandfather Unknown family medical history Paternal Grandmother Unknown family medical history Sister No problems noted. Sister No problems noted. Sister No problems noted. Social History Household Members: None Housing: Apartment Are you a primary care services manager to a significant other at home: No Do you presently have visiting nurse or other home services: Yes Alcohol intake: former Patient Tobacco Use Status: Current everyday Tobacco user Tobacco use type: Cigar Cigarette Packs Per Day: 1 e-Cigarette/Vaping Use: Never Used Substance Use Type: Marijuana service: No Current occupational status: disabled Cognitive needs: No Hearing needs: No Vision needs: No Questionnaire Thrive Questionnaire Date Thrive assessed: 04/21/23 AUDIT C Alcohol Use Questionnaire (AUDIT-C) 1. How often do you have a drink containing alcohol?: Never 3. How often do you have six or more drinks on one occasion?: Never Total Score: 0 Score Reviewed/Action Taken: Yes PATSY-7 AMB Questionnaire PATSY-7 Date PATSY - 7 assessed: 04/21/23 Source: Developed by Drs. Jimy Franco, Madison Berry, Tyler Guy and colleagues, with an educational herb from [employer]. Review of Systems Const Denies chills and Denies fever(s) ENT Denies epistaxis and Denies nasal discharge Card Denies chest pain Resp Denies chest congestion and Denies hemoptysis GI Denies diarrhea and Denies nausea Skin/Breast Denies rash Neuro Reports no additional complaints Psych Reports no additional complaints Endo Reports no additional complaints Physical exam (Primary Care) Vital Signs: Last Vital Signs Pulse 85 01/24/24 12:00 BP 130/58 L 01/24/24 12:00 Pulse Ox 93 01/24/24 12:00 Oxygen Delivery Method Room Air 01/24/24 12:00 BMI result Body Mass Index 31.3 Tobacco/Smoking Status: Tobacco use Status Tobacco use date assessed 01/24/24 01/24/24 12:08 Patient Tobacco Use Status Current everyday Tobacco 01/24/24 12:08 Tobacco use type Cigar 01/24/24 12:08 e-Cigarette/Vaping Use Never Used 01/24/24 12:08 Thrive Assessment: Date of Thrive Assessment Date Thrive assessed 04/21/23 01/24/24 12:08 Const General: cooperative, comfortable and no acute distress Orientation/consciousness: patient oriented x3 HENVA Head: Yes normocephalic Eyes Other: Left eye slightly injected, no discharge, slight discomfort with light, no pain with palpation Neck Neck: Yes supple Resp Effort & Inspection: normal respiratory effort, no cough and no stridor Cardio Rhythm: regular rhythm Heart sounds: S1 normal heart sound present and S2 normal heart sound present Skin General skin exam: turgor normal Neuro General: patient oriented x3, tone normal and moves all extremities Extrem Right lower extremity: no edema Left lower extremity: no edema Assessment and Plan Assessment & Plan (1) Hypothyroidism: Code(s): E03.9 - Hypothyroidism, unspecified Qualifiers: Hypothyroidism type: unspecified Qualified Code(s): E03.9 - Hypothyroidism, unspecified (2) Blurred vision, left eye: Code(s): H53.8 - Other visual disturbances (3) Lipid disorder: Code(s): E78.9 - Disorder of lipoprotein metabolism, unspecified (4) COPD (chronic obstructive pulmonary disease): Code(s): J44.9 - Chronic obstructive pulmonary disease, unspecified Qualifiers: COPD type: emphysema Emphysema type: other Qualified Code(s): J43.8 - Other emphysema (5) BPH (benign prostatic hyperplasia): Code(s): N40.0 - Benign prostatic hyperplasia without lower urinary tract symptoms Qualifiers: Lower urinary tract symptom detail: urinary frequency Lower urinary tract symptom presence: symptoms present Qualified Code(s): N40.1 - Benign prostatic hyperplasia with lower urinary tract symptoms; R35.0 - Frequency of micturition (6) Alcoholic liver disease: Code(s): K70.9 - Alcoholic liver disease, unspecified (7) Hypertension, essential: Code(s): I10 - Essential (primary) hypertension (8) Tobacco abuse: Code(s): Z72.0 - Tobacco use (9) Thrombocytosis: Comment: Management through Hematology [facility] Code(s): D47.3 - Essential (hemorrhagic) thrombocythemia (10) Depression, major, recurrent: Onset Date: Unknown Comment: Management through Psychiatry Code(s): F33.9 - Major depressive disorder, recurrent, unspecified Qualifiers: Active/Remission status: in partial remission Qualified Code(s): F33.41 - Major depressive disorder, recurrent, in partial remission (11) 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 Patient has been declining to see eye doctor staff member tells me I have placed a referral for him to see urgently, also talked with the patient and explained to him that it is very important that he goes and sees the doctor otherwise he may lose his vision He understands and agrees .? He does have of personal dust box worker come over to help him with his cleaning and cooking.? Patient have psychiatric illness.? Taking psychiatric medication through Psychiatry.? Continue to smoke in spite of me advising him to stop Patient has? seen Dr. Mix for hypercalcemia which was thought to be secondary to lithium.? Patient has been discharged from the practice unless his calcium level goes above 11.2. His level continued to fluctuate up and down BPH treatment through urology?,Patient is on dutasteride and tamsulosin Hematology [facility] Dr. Osorio, for management of erythrocytosis GERD is stable with omeprazole 20 mg once a day. Patient is also on levothyroxine 112 mcg daily Lipids controlled with gemfibrozil and Zetia Patient is? on a Flovent, continue to smoke marijuana, has chronic smoker's cough Osteoarthritis knees, taking Tylenol as needed Follow-up 4 months ? ? Orders: Referrals Ophthalmology Referral H53.149 - Visual discomfort, unspecified, H53.8 - Other visual disturbances Coding Level of Care Code Est Pt Level 4 (39398) Complex EM visit Add On G2211 Diagnoses Hypothyroidism, unspecified type E03.9 Hypothyroidism type: unspecified Blurred vision, left eye H53.8 Lipid disorder E78.9 Other emphysema J43.8 COPD type: emphysema Emphysema type: other Benign prostatic hyperplasia with urinary frequency N40.1; R35.0 Lower urinary tract symptom detail: urinary frequency Lower urinary tract symptom presence: symptoms present Alcoholic liver disease K70.9 Hypertension, essential I10 Tobacco abuse Z72.0 Thrombocytosis D47.3 Recurrent major depressive disorder, in partial remission F33.41 Active/Remission status: in partial remission 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
[2024-01-24 12:00] VITALS: BP 130/58; PULSE 85; O2SAT 93; BMI 31.3
== END 2024-01-24 14:08 | disposition home or self-care (01) ==
PROVIDERS: PCP Internal Medicine; Visit Provider Internal Medicine
DX: J43.8 Other emphysema (principal); K70.9 Alcoholic liver disease, unspecified; F33.41 Major depressive disorder, recurrent, in partial remission; D47.3 Essential (hemorrhagic) thrombocythemia; E21.1 Secondary hyperparathyroidism, not elsewhere classified; E03.9 Hypothyroidism, unspecified; H53.8 Other visual disturbances; E78.9 Disorder of lipoprotein metabolism, unspecified; R35.0 Frequency of micturition; N40.1 Benign prostatic hyperplasia with lower urinary tract symptoms; I10 Essential (primary) hypertension; Z72.0 Tobacco use
CPT/HCPCS: 99214; G2211

== ENCOUNTER 2024-03-04 10:50 | Outpatient (REF) | payer MEDICARE, MEDICAID, SELFPAY ==
[2024-03-04 11:09] LABS: Basophils Absolute Auto 0.1 X10*3/uL (0.0-0.2); Basophils Percent Auto 0.5 % (0-2); Eosinophils Absolute Auto 0.4 X10*3/uL (0.0-0.4); Eosinophils Percent Auto 2.9 % (0-4); Hematocrit 46.1 % (42.0-52.0); Hemoglobin 15.4 g/dl (14.0-18.0); Imm Gran Abs Auto 0.03 X10*3/uL (0.00-0.03); Imm Gran Pct Auto 0.2 % (0.0-0.4); Lymphocytes Percent Auto 61.3 % (20-40); MANUAL DIFF FLAG SCAN; Mean Corpuscular HGB Conc 33.4 g/dl (31.0-36.0); Mean Corpuscular Hemoglobin 30.6 pg (27.0-33.0); Mean Corpuscular Volume 91.5 fL (80.0-98.0); Mean Platelet Volume 8.9 fL (9.4-12.4); Monocytes Absolute Auto 0.6 X10*3/uL (0.1-1.2); Monocytes Percent Auto 4.3 % (2-11); Neutrophils Absolute Auto 4.3 x10*3/uL (2.0-8.3); Neutrophils Percent Auto 30.8 % (45-73); Platelet Count 210 X10*3/uL (160-400); Red Blood Count 5.04 X10*6/uL (4.60-5.80); Red Cell Distribution Width 14.2 % (11.0-16.0); SCAN SMEAR FLAG 1; White Blood Count 13.9 X10*3/uL (4.8-10.8)
[2024-03-04 11:11] LABS: Lymphocytes Absolute Auto 8.5 X10*3/uL (1.2-4.9)
[2024-03-04 11:33] LABS: Alanine Aminotransferase 10 U/L (0-40); Albumin Level 4.3 g/dL (3.5-5.0); Alkaline Phosphatase 87 U/L (39-117); Anion Gap 11 (12-20); Aspartate Amino Transferase 18 U/L (5-37); Bilirubin Total 0.5 mg/dL (0.0-1.0); Blood Urea Nitrogen 14 mg/dL (9-16); Calcium 10.3 mg/dL (8.4-10.2); Carbon Dioxide 25 mmol/L (22-29); Chloride 106 mmol/L (96-108); Estimated Glomerular Filt Rate > 60; Glucose Random 128 mg/dL (60-115); Potassium 4.6 mmol/L (3.3-5.1); Sodium 137 mmol/L (135-145); Total Protein 6.7 g/dL (6.5-8.0)
[2024-03-04 11:34] LABS: SLIDE REVIEW VERIFIED
== END 2024-03-04 10:51 | disposition home or self-care (01) ==
LOC: HO.BBR 10:50
PROVIDERS: PCP Internal Medicine; Visit Provider Internal Medicine Medical Oncology
DX: D75.1 Secondary polycythemia (principal)
CPT/HCPCS: 36415; 80053; 85014; 85018; 85025; 99195

== ENCOUNTER 2024-04-10 11:37 | Outpatient (AMB) | payer MEDICARE, MEDICAID, SELFPAY ==
[2024-04-10 11:38] VITALS: BP 130/66; PULSE 63; O2SAT 93; BMI 29.7
--- NOTE | 2024-04-10 11:38 | A.OFFPC_ITS ---
Vital Signs 04/10/24 11:38 Height 5 ft 10 in Weight 207 lb 2 oz BMI 29.7 BP 130/66 Blood Pressure Location Rt brachial Position Sitting Pulse 63 Pulse Source Pulse Oximeter Pulse Oximetry (%) 93 Oxygen Delivery Method Room Air Intake Visit Reasons: 6 month fu Allergies atorvastatin [From LIPITOR] Allergy (Unknown, Verified 04/10/24 11:38) HIGH LFTS Medication List - Last Reconciled 04/10/24 by Binh Lim MD acetaminophen ER 650 mg PO ONCE PRN 30 days amlodipine 5 mg PO DAILY 90 days benztropine 1 mg PO DAILY budesonide 90 mcg/actuation (Pulmicort Flexhaler) 1 inh inhalation BID cholecalciferol (vitamin D3) 50 mcg PO DAILY 90 days dutasteride 0.5 mg PO DAILY 90 days ezetimibe (Zetia) 10 mg PO DAILY gemfibrozil (Lopid) 600 mg PO BID 90 days levothyroxine 112 mcg PO QAM 90 days lidocaine HCl 4% (Aspercreme (lidocaine HCl)) 1 appl topical BID PRN 30 days lithium carbonate 300 mg PO BID omega [id number]-fish oil 300-1,000 mg 1 cap PO BID 90 days omeprazole 20 mg PO DAILY 90 days paroxetine HCl (Paxil) 40 mg PO DAILY risperidone microspheres ER 50 mg IM Q2W tamsulosin (Flomax) 0.8 mg (2 x 0.4 mg) PO DAILY 90 days vitamin B complex 1 cap PO DAILY Tobacco use date assessed: 04/10/24 Fall risk assessment: No Falls in past year Last assessed Fall Risk: 04/10/24 Dental Screening Dental Screen Date: 04/10/24 Did you have a dental visit in the last 12 months?: No Did you have a dental problem in the last 6 months where you did not have access to dental care?: No Was dental information given to patient?: No HPI 6 month fu HPI Details Patient is 63-year-old gentleman Came in for his regular follow-up appointment with the staff Patient declined to go to Ophthalmology appointment that I placed last visit as a referral Even today I had to convince him that it is important he go and see the doctor as 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 He does have of personal campground caretaker come over to help him with his cleaning and cooking.? Patient have psychiatric illness.? Taking psychiatric medication through Psychiatry.? Continue to smoke in spite of me advising him to stop, I do not think he is very receptive Patient has? seen Dr. Mix for hypercalcemia which was thought to be secondary to lithium.? Patient has been discharged from the practice unless his calcium level goes above 11.2. His level continued to fluctuate up and down BPH treatment through urology?,Patient is on dutasteride and tamsulosin Hematology [facility] Dr. Osorio, for management of erythrocytosis GERD is stable with omeprazole 20 mg once a day. Patient is also on levothyroxine 112 mcg daily Lipids controlled with gemfibrozil and Zetia Patient is? on a Flovent, continue to smoke marijuana, have chronic smoker's cough Osteoarthritis knees, taking Tylenol as needed Follow-up 3 months ? ? 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 Encounter for general adult medical examination with abnormal findings Alcoholic liver disease Schizoaffective disorder Depression, major, recurrent (Unknown) Thrombocytosis Obesity Tobacco abuse BPH (benign prostatic hyperplasia) COPD (chronic obstructive pulmonary disease) Lipid disorder Chronic GERD Hypothyroidism Surgical History History of surgery History of hernia repair Family History Father HTN (hypertension) CVD (cardiovascular disease) Sister AIDS Maternal Grandfather Unknown family medical history Maternal Grandmother Unknown family medical history Paternal Grandfather Unknown family medical history Paternal Grandmother Unknown family medical history Sister No problems noted. Sister No problems noted. Sister No problems noted. Social History Household Members: None Housing: Apartment Are you a primary aged or disabled carer to a significant other at home: No Do you presently have visiting nurse or other home services: Yes Alcohol intake: former Patient Tobacco Use Status: Current everyday Tobacco user Tobacco use type: Cigar Cigarette Packs Per Day: 1 e-Cigarette/Vaping Use: Never Used Substance Use Type: Marijuana service: No Current occupational status: disabled Cognitive needs: No Hearing needs: No Vision needs: No Questionnaire PHQ-9 Over the last 2 weeks, how often have you been bothered by any of the following problems? 1. Little interest or pleasure in doing things: not at all 2. Feeling down, depressed, or hopeless: several days 3. Trouble falling or staying asleep, or sleeping too much: not at all 4. Feeling tired or having little energy: several days 5. Poor appetite or overeating: not at all 6. Feeling bad about yourself - or that you are a failure or have let yourself or your family down: not at all 7. Trouble concentrating on things, such as reading the newspaper or watching television: several days 8. Moving or speaking so slowly that other people could have noticed. Or the opposite - being so fidgety or restless that you have been moving around a lot more than usual: not at all 9. Thoughts that you would be better off or of hurting yourself in some way: not at all Total score: 3 Depression Screening Interpretation: Negative Depression Screening Done: Yes 16204 - PHQ-9 Billing: Yes Source: Developed by Drs. Jimy Franco, Madison Berry, Tyler Guy and colleagues, with an educational herb from [employer]. Thrive Questionnaire Date Thrive assessed: 04/10/24 I am a: Patient What is your living situation today?: I have a steady place to live Within the past 12 months, did the food you bought not last and you didn't have the money to get more?: I choose not to answer this question Within the past 12 months, did you worry whether your food would run out before you got money to buy more?: I choose not to answer this question Do you have trouble paying for medicines?: I choose not to answer this question Do you have trouble getting transportation to medical appointments?: I choose not to answer this question Do you have trouble paying your heating and electricity bill?: I choose not to answer this question Do you have trouble taking care of your child, family member or friend?: I choose not to answer this question Do you have trouble with day-to-day activities such as bathing, preparing meals, shopping, managing finances, etc.?: I choose not to answer this question Are you currently unemployed and looking for a job?: I choose not to answer this question Are you interested in more education?: I choose not to answer this question Please select the resources that you would like help with: Housing/Prison Currently or been in a relationship where the following occur: I choose not to answer THRIVE Score: 0 AUDIT C Alcohol Use Questionnaire (AUDIT-C) 1. How often do you have a drink containing alcohol?: Never 3. How often do you have six or more drinks on one occasion?: Never Total Score: 0 Score Reviewed/Action Taken: Yes PATSY-7 AMB Questionnaire PATSY-7 Date PATSY - 7 assessed: 04/10/24 Feeling nervous, anxious, or on edge: 0 = Not at all Not being able to stop or control worryin = Not at all Worrying too much about different things: 0 = Not at all Trouble relaxin = Not at all Being so restless that it is hard to sit still: 0 = Not at all Becoming easily annoyed or irritable: 0 = Not at all Feeling afraid as if something awful might happen: 0 = Not at all Total PATSY-7 score (0-4 normal; 5-9 mild; 10-14 moderate; 15-21 severe): 0 Source: Developed by Drs. Jimy Franco, Madison Berry, Tyler Guy and colleagues, with an educational herb from [employer]. PATSY-7 Assessment Billing PATSY-7 Assessment Tool: PATSY-7 Assessment 75769 Review of Systems Const Denies chills and Denies fever(s) ENT Denies epistaxis and Denies nasal discharge Card Denies chest pain Resp Denies chest congestion and Denies hemoptysis GI Denies diarrhea and Denies nausea Skin/Breast Denies rash Neuro Reports no additional complaints Psych Reports no additional complaints Endo Reports no additional complaints Physical exam (Primary Care) Vital Signs: Last Vital Signs Pulse 63 04/10/24 11:38 BP 130/66 04/10/24 11:38 Pulse Ox 93 04/10/24 11:38 Oxygen Delivery Method Room Air 04/10/24 11:38 BMI result Body Mass Index 29.7 Tobacco/Smoking Status: Tobacco use Status Tobacco use date assessed 04/10/24 04/10/24 11:40 Patient Tobacco Use Status Current everyday Tobacco 04/10/24 11:40 Tobacco use type Cigar 04/10/24 11:40 e-Cigarette/Vaping Use Never Used 04/10/24 11:40 PHQ-9: PHQ-9 Score PHQ-9: Total score 3 04/10/24 11:45 Depression Screening Interpretation: Negative Thrive Assessment: Date of Thrive Assessment Date Thrive assessed 04/10/24 04/10/24 11:45 Currently or been in a relationship where the following occur: I choose not to answer Const General: cooperative, comfortable and no acute distress Orientation/consciousness: patient oriented x3 HENMT Head: Yes normocephalic Eyes Other: Left eye with cloudy cornea Neck Neck: Yes supple Resp Effort & Inspection: normal respiratory effort, no cough and no stridor Cardio Rhythm: regular rhythm Heart sounds: S1 normal heart sound present and S2 normal heart sound present Skin General skin exam: turgor normal Neuro General: patient oriented x3, tone normal and moves all extremities Extrem Right lower extremity: no edema Left lower extremity: no edema Assessment and Plan Assessment & Plan (1) Hypertension, essential: Code(s): I10 - Essential (primary) hypertension (2) COPD (chronic obstructive pulmonary disease): Code(s): J44.9 - Chronic obstructive pulmonary disease, unspecified Qualifiers: COPD type: emphysema Emphysema type: other Qualified Code(s): J43.8 - Other emphysema (3) Hypothyroidism: Code(s): E03.9 - Hypothyroidism, unspecified Qualifiers: Hypothyroidism type: unspecified Qualified Code(s): E03.9 - Hypothyroidism, unspecified (4) Blurred vision, left eye: Code(s): H53.8 - Other visual disturbances (5) Lipid disorder: Code(s): E78.9 - Disorder of lipoprotein metabolism, unspecified (6) BPH (benign prostatic hyperplasia): Code(s): N40.0 - Benign prostatic hyperplasia without lower urinary tract symptoms Qualifiers: Lower urinary tract symptom presence: symptoms present Lower urinary tract symptom detail: urinary frequency Qualified Code(s): N40.1 - Benign prostatic hyperplasia with lower urinary tract symptoms; R35.0 - Frequency of micturition (7) Alcoholic liver disease: Code(s): K70.9 - Alcoholic liver disease, unspecified (8) Tobacco abuse: Code(s): Z72.0 - Tobacco use (9) Thrombocytosis: Comment: Management through Hematology [facility] Code(s): D47.3 - Essential (hemorrhagic) thrombocythemia (10) Depression, major, recurrent: Onset Date: Unknown Comment: Management through Psychiatry Code(s): F33.9 - Major depressive disorder, recurrent, unspecified Qualifiers: Active/Remission status: in partial remission Qualified Code(s): F33.41 - Major depressive disorder, recurrent, in partial remission (11) Hypercalcemia due to a drug: Code(s): E83.52 - Hypercalcemia; T50.905A - Adverse effect of unspecified drugs, medicaments and biological substances, initial encounter Plan Patient is 63-year-old gentleman Came in for his regular follow-up appointment with the staff Patient declined to go to Ophthalmology appointment that I placed last visit as a referral Even today I had to convince him that it is important he go and see the doctor as 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 He does have of personal campground caretaker come over to help him with his cleaning and cooking.? Patient have psychiatric illness.? Taking psychiatric medication through Psychiatry.? Continue to smoke in spite of me advising him to stop, I do not think he is very receptive Patient has? seen Dr. Mix for hypercalcemia which was thought to be secondary to lithium.? Patient has been discharged from the practice unless his calcium level goes above 11.2. His level continued to fluctuate up and down BPH treatment through urology?,Patient is on dutasteride and tamsulosin Hematology [facility] Dr. Osorio, for management of erythrocytosis GERD is stable with omeprazole 20 mg once a day. Patient is also on levothyroxine 112 mcg daily Lipids controlled with gemfibrozil and Zetia Patient is? on a Flovent, continue to smoke marijuana, have chronic smoker's cough Osteoarthritis knees, taking Tylenol as needed Follow-up 3 months ? ? Labs done in February reviewed Coding Level of Care Code Est Pt Level 4 (88490) Complex EM visit Add On G2211 Diagnoses Hypertension, essential I10 Other emphysema J43.8 COPD type: emphysema Emphysema type: other Hypothyroidism, unspecified type E03.9 Hypothyroidism type: unspecified Blurred vision, left eye H53.8 Lipid disorder E78.9 Benign prostatic hyperplasia with urinary frequency N40.1; R35.0 Lower urinary tract symptom presence: symptoms present Lower urinary tract symptom detail: urinary frequency Alcoholic liver disease K70.9 Tobacco abuse Z72.0 Thrombocytosis D47.3 Recurrent major depressive disorder, in partial remission F33.41 Active/Remission status: in partial remission Hypercalcemia due to a drug E83.52; T50.905A Additional Codes PATSY-7 Assessment Billing - PATSY-7 Assessment Tool: PATSY-7 Assessment 30307 ([id number])
== END 2024-04-10 12:20 | disposition home or self-care (01) ==
PROVIDERS: PCP Internal Medicine; Visit Provider Internal Medicine
DX: J43.8 Other emphysema (principal); K70.9 Alcoholic liver disease, unspecified; D47.3 Essential (hemorrhagic) thrombocythemia; F33.41 Major depressive disorder, recurrent, in partial remission; I10 Essential (primary) hypertension; E03.9 Hypothyroidism, unspecified; H53.8 Other visual disturbances; E78.9 Disorder of lipoprotein metabolism, unspecified; N40.1 Benign prostatic hyperplasia with lower urinary tract symptoms; R35.0 Frequency of micturition; Z72.0 Tobacco use; E83.52 Hypercalcemia
CPT/HCPCS: 99214; G2211

== ENCOUNTER 2024-05-17 10:24 | Outpatient (AMB) | payer MEDICARE, MEDICAID, SELFPAY ==
--- NOTE | 2024-05-17 10:49 | A.OFFVIS_ITS ---
Intake Visit Reasons: 6m/PVR Intake Note: Patient is Present for PVR/ Urology Med: Tamsulosin, Dutasteride Antibiotic Allergy: None Blood Thinner: None Last PVR: 613mls Todays PVR:219mls Gang Bore Operator Required: No Partition Assembly Machine Operator: Partition Assembly Machine Operator Present Accompanied by: dedicated intermodal truck driver Allergies atorvastatin [From LIPITOR] Allergy (Unknown, Verified 06/16/24 18:47) HIGH LFTS HPI Comments Details: Kevin is a pleasant male. He is a patient of Dr. Lim. 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 Non-toxic multinodular goiter Vitamin D deficiency 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 Encounter for general adult medical examination with abnormal findings Alcoholic liver disease Schizoaffective disorder Depression, major, recurrent (Unknown) Thrombocytosis Obesity Tobacco abuse BPH (benign prostatic hyperplasia) COPD (chronic obstructive pulmonary disease) Lipid disorder Chronic GERD Hypothyroidism Surgical History History of surgery History of hernia repair Family History Father HTN (hypertension) CVD (cardiovascular disease) Sister AIDS Maternal Grandfather Unknown family medical history Maternal Grandmother Unknown family medical history Paternal Grandfather Unknown family medical history Paternal Grandmother Unknown family medical history Sister No problems noted. Sister No problems noted. Sister No problems noted. Social History Household Members: None Housing: Unknown / Unable to assess Are you a primary landcare facilitator to a significant other at home: No Do you presently have visiting nurse or other home services: Yes Alcohol intake: former Comment: restraints Patient Tobacco Use Status: Tobacco use Unknown Tobacco use type: Cigar Cigarette Packs Per Day: 1 e-Cigarette/Vaping Use: Never Used Substance Use Type: Marijuana Advance Directives Date on File: 08/16/22 service: No Current occupational status: disabled Cognitive needs: No Hearing needs: No Vision needs: No Review of Systems Const Denies chills and Denies fever(s) Card Reports no additional complaints and Denies syncope Resp Denies cough GI Denies abdominal pain and Denies heartburn Reports as per HPI and Denies change in libido Neuro Denies syncope Psych Denies change in libido Endo Denies change in libido Physical Exam Const General: cooperative, healthy appearing, comfortable and no acute distress Orientation/consciousness: patient oriented x3 HEENT Face and sinus: Yes normal facial exam Mouth: moist mucous membranes Neck Neck: Yes normal visual inspection, Yes full ROM and Yes trachea midline Chest Chest palpation & inspection: normal inspection of the chest Resp Effort & Inspection: normal respiratory effort, able to speak in complete sentences and no respiratory distress GI Inspection: Yes normal to inspection Back/Spine/Pelvis Cervical Spine: normal cervical lordosis Thoracic/Lumbar Spine: thoracic and lumbar spine normal to inspection Skin General skin exam: no rashes or lesions noted Neuro General: patient oriented x3, gait normal, tone normal and moves all extremities Extrem General: Yes normal to inspection and Yes capillary refill normal Office Procedures Post Void Residual Post Residual Void Post Void Residual (PVR): [id number] Void Residual by ultrasound Assessment & Plan Assessment & Plan (1) Incomplete emptying of bladder due to benign prostatic hyperplasia: Code(s): N40.1 - Benign prostatic hyperplasia with lower urinary tract symptoms; R33.9 - Retention of urine, unspecified Category: Medical Plan Six-month follow-up PVR Continue current medication Orders: Orders AMB Post Void Residual by ultrasound 05/17/24 N40.1 - Benign prostatic hyperplasia with lower urinary tract symptoms, R33.9 - Retention of urine, unspecified Medications: Refilled tamsulosin (Flomax) 0.8 mg (2 x 0.4 mg) PO DAILY 180 caps 1RF 90 days N40.0 - Benign prostatic hyperplasia without lower urinary tract symptoms dutasteride 0.5 mg PO DAILY 90 caps 1RF 90 days N40.1 - Benign prostatic hyperplasia with lower urinary tract symptoms, R33.9 - Retention of urine, unspe cified Patient Instructions: Imaging studies, laboratory and physical exam results were discussed and reviewed in detail. No major barriers to patient understanding were identified. An opportunity to ask questions regarding the treatment plan was provided. All questions were answered. The patient expressed understanding and agreement with the above treatment plan. The patient is aware they should contact our office by phone for worsening of their current condition or the appearance of new urologic symptoms. Compliance is encouraged with any medications and followup testing that is ordered. It is a privilege to participate in the urologic care of your patient. If you have any questions or concerns regarding treatment for the above conditions, or other urologic issues, please do not hesitate to contact me. The office telephone contact is [phone]. This note is constructed using voice recognition software. While every effort has been made to ensure accuracy buttonhole tacker errors may have been included. Yours sincerely, Dr Julio Allen MD, [facility] - Urology Providers of Expert, Compassionate Care for the Genitourinary System Coding Level of Care Code Est Pt Level 3 (47504) Diagnoses Incomplete emptying of bladder due to benign prostatic hyperplasia N40.1; R33.9 CPT Codes Post Residual Void - PVR CPT Code: 05713-[id number] Void Residual by ultrasound ([id number])
== END 2024-05-17 11:15 | disposition home or self-care (01) ==
PROVIDERS: PCP Internal Medicine; Visit Provider Urology
DX: N40.1 Benign prostatic hyperplasia with lower urinary tract symptoms (principal); R33.9 Retention of urine, unspecified
CPT/HCPCS: 99213

== ENCOUNTER → 2024-05-17 10:24 | Outpatient (BNVA) | payer MEDICARE, MEDICAID, SELFPAY | PROVIDERS: PCP Internal Medicine; Visit Provider Urology | DX: N40.1 Benign prostatic hyperplasia with lower urinary tract symptoms (principal); R33.8 Other retention of urine; Z79.899 Other long term (current) drug therapy | CPT/HCPCS: 51798; 99212 ==

== ENCOUNTER 2024-06-03 10:42 | Outpatient (REF) | payer MEDICARE, MEDICAID, SELFPAY ==
[2024-06-03 11:02] LABS: Basophils Absolute Auto 0.1 X10*3/uL (0.0-0.2); Basophils Percent Auto 0.5 % (0-2); Eosinophils Absolute Auto 0.3 X10*3/uL (0.0-0.4); Eosinophils Percent Auto 2.1 % (0-4); Hematocrit 46.6 % (42.0-52.0); Hemoglobin 15.5 g/dl (14.0-18.0); Imm Gran Abs Auto 0.04 X10*3/uL (0.00-0.03); Imm Gran Pct Auto 0.3 % (0.0-0.4); Lymphocytes Percent Auto 60.7 % (20-40); MANUAL DIFF FLAG SCAN; Mean Corpuscular HGB Conc 33.3 g/dl (31.0-36.0); Mean Corpuscular Hemoglobin 30.1 pg (27.0-33.0); Mean Corpuscular Volume 90.5 fL (80.0-98.0); Mean Platelet Volume 9.5 fL (9.4-12.4); Monocytes Absolute Auto 0.6 X10*3/uL (0.1-1.2); Monocytes Percent Auto 3.8 % (2-11); Neutrophils Absolute Auto 5.1 x10*3/uL (2.0-8.3); Neutrophils Percent Auto 32.6 % (45-73); Platelet Count 253 X10*3/uL (160-400); Red Blood Count 5.15 X10*6/uL (4.60-5.80); SCAN SMEAR FLAG 1; White Blood Count 15.5 X10*3/uL (4.8-10.8)
[2024-06-03 11:04] LABS: Lymphocytes Absolute Auto 9.4 X10*3/uL (1.2-4.9)
[2024-06-03 11:57] LABS: SLIDE REVIEW VERIFIED
[2024-06-03 13:20] LABS: Alanine Aminotransferase 12 U/L (0-40); Albumin Level 4.7 g/dL (3.5-5.0); Alkaline Phosphatase 99 U/L (39-117); Anion Gap 16 (12-20); Aspartate Amino Transferase 20 U/L (5-37); Bilirubin Total 0.7 mg/dL (0.0-1.0); Blood Urea Nitrogen 45 mg/dL (9-16); Calcium 11.4 mg/dL (8.4-10.2); Carbon Dioxide 22 mmol/L (22-29); Chloride 102 mmol/L (96-108); Estimated Glomerular Filt Rate 50; Glucose Random 125 mg/dL (60-115); Potassium 4.9 mmol/L (3.3-5.1); Sodium 135 mmol/L (135-145); Total Protein 7.9 g/dL (6.5-8.0)
== END 2024-06-03 10:43 | disposition home or self-care (01) ==
LOC: HO.BBR 10:42
PROVIDERS: PCP Internal Medicine; Visit Provider Internal Medicine Medical Oncology
DX: D75.1 Secondary polycythemia (principal)
CPT/HCPCS: 36415; 80053; 85014; 85018; 85025; 99195

== ENCOUNTER 2024-06-16 17:47 | Inpatient (IN) | payer MEDICARE, MEDICAID, SELFPAY ==
--- NOTE | 2024-06-16 | ECG_ITS ---
Test Reason : AMS Blood Pressure : / mmHG Vent. Rate : 051 BPM Atrial Rate : 057 BPM P-R Int : 176 ms QRS Dur : 124 ms QT Int : 384 ms P-R-T Axes : 074 067 065 degrees QTc Int : 353 ms Sinus bradycardia with sinus arrhythmia Non-specific intra-ventricular conduction delay Nonspecific T wave abnormality Abnormal ECG No previous ECGs available Referred By: J Carlos Kim Electronically Signed By:MILE REED
--- NOTE | ~2024-06-16 | XR_ITS ---
EXAMINATION: XR CHEST CLINICAL INFORMATION: Encephalopathy. Hypoxia. COMPARISON: September 12, 2017 TECHNIQUE: Frontal view of the chest was obtained. FINDINGS: There is left lower lobe consolidation silhouetting the left hemidiaphragm. Small left pleural effusion. Right hemithorax is clear. Cardiac silhouette is partially obscured. XR/XR chest 1V IMPRESSION: Left lower lobe pneumonia. Small left pleural effusion. Electronically signed by: Noble Sheffield MD 06/17/2024 01:52 PM EDT
--- NOTE | ~2024-06-16 | CT_ITS ---
EXAMINATION: CT HEAD WITHOUT CONTRAST CLINICAL INFORMATION: Mental status change. COMPARISON: None available. TECHNIQUE: Contiguous axial imaging was performed from the skull base to vertex without intravenous administration of contrast. This CT examination was performed using dose optimization techniques as appropriate, variously including the following: *Automated exposure control. *Adjustment of mA and/or kV according to patient size (this includes techniques or standardized protocols for targeted exams where dose is matched to indication/reason for exam; i.e. extremities or head). *Use of iterative reconstruction technique. DLP: 833 mGy-cm FINDINGS: There is no evidence of acute intracranial hemorrhage or edematous territorial infarction. Mcknight-white matter differentiation is preserved. Scattered and partially confluent hypoattenuation in the periventricular and deep white matter are consistent with mild to moderate microangiopathy. Proportional prominence of the ventricles and sulcal spaces without evidence of obstructive hydrocephalus. No abnormal mass effect or midline shift. No extra-axial fluid collections. Calcific atherosclerotic disease of the intracranial internal carotid and vertebral arteries. No hyperdense vessel sign. No acute soft tissue or osseous abnormalities. Mild mucosal thickening of the paranasal sinuses. The mastoid air cells and middle ear cavities are clear. The patient is edentulous. CT/CT head/brain wo IV con IMPRESSION: 1. No evidence of acute intracranial hemorrhage or edematous territorial infarction. 2. Mild to moderate underlying microangiopathy and generalized cerebral volume loss. Electronically signed by: William Albrecht DO 06/16/2024 08:38 PM EDT
--- NOTE | ~2024-06-16 | XR_ITS ---
EXAMINATION: XR CHEST CLINICAL INFORMATION: Endotracheal tube placement. COMPARISON: Chest radiograph from 06/18/2024. CT chest from 12/29/2020. TECHNIQUE: AP upright portable radiograph of the chest was obtained. FINDINGS: Endotracheal tube terminates 5.5 cm above the steffanie. Enteric tube passes below the level of the diaphragm with tip not included within the [id number] of this exam. Increased retrocardiac consolidation. Otherwise, the lungs are otherwise hyperexpanded. No additional focal dense consolidative process. No evidence of pleural effusion, pulmonary edema, or pneumothorax. The cardiomediastinal silhouette is within normal limits. Aortic calcifications. No acute osseous abnormalities. XR/XR chest 1V IMPRESSION: 1. Endotracheal tube terminates 5.5 cm above the steffanie. 2. Increased retrocardiac consolidation. Electronically signed by: William Albrecht DO 06/19/2024 12:28 AM EDT
--- NOTE | ~2024-06-16 | CT_ITS ---
Examination: CT brain without contrast and chest one view. CLINICAL INDICATION: AMS. COMPARISON: CT brain 06/16/2024 and chest 06/17/2024. TECHNIQUE: 2 mm thin axial and reformatted 2 mm in sagittal coronal images of brain were obtained. DLP 914. This CT examination was performed using dose optimization technique as appropriate, variously including the following: Automated exposure control Adjustment of MA and/or KV according to patient size(this includes techniques or standardized protocols for targeted exams where dose is matched to indication/reason for exam; extremities or head. Use of iterative reconstruction techniques. Chest 1 view. FINDINGS: Chest: The lungs are expanded and clear of acute process. The heart size and pulmonary vascularity is normal. Enteric tube tip is in the stomach. No gross bony abnormality seen. Brain: There is no acute intra-axial, extra-axial bleed, mass or midline shift. There is no acute infarction in evolution. There is no edema. The torres to white matter differentiation is maintained normal. Bone windows reveal no calvarial abnormality. There is no scalp soft tissue abnormality. Bilateral paranasal sinuses and mastoid air cells are well-aerated. Small polyp or retention cyst seen in left maxillary sinus. CT/CT head/brain wo IV con IMPRESSION: Unremarkable chest exam. No acute intracranial process seen. Electronically signed by: Ck Daniel MD 06/18/2024 05:45 PM EDT
--- NOTE | ~2024-06-16 | MR_ITS ---
EXAMINATION: MR BRAIN WITHOUT CONTRAST CLINICAL INFORMATION: Encephalopathy, new atrial fibrillation, unresponsive COMPARISON: CT head June 16, 2024 TECHNIQUE: MRI of the brain was obtained using routine sequences without contrast. FINDINGS: Motion degraded examination. No acute infarct. No acute intracranial hemorrhage or extra-axial fluid collection. Mild global cerebral volume loss. Incidental asymmetric prominence of the left occipital horn relative to the right. A couple nonspecific punctate T2 FLAIR hyperintense foci in the subcortical white matter of no clinical significance. No mass lesion, mass effect, or herniation pattern. Normal intracranial arterial and dural venous sinus flow voids. Normal appearance of the midline structures. The orbits are grossly unremarkable. Mild ethmoid air cell mucosal thickening. No mastoid effusion. Normal marrow signal. MR/MR head/brain wo con IMPRESSION: No acute intracranial abnormality. Electronically signed by: Sully Booker MD 06/17/2024 08:23 PM EDT
--- NOTE | ~2024-06-16 | XR_ITS ---
EXAMINATION: XR ABDOMEN KUB CLINICAL INDICATION: Needs MRI. Metal check COMPARISON: None available. TECHNIQUE: AP view of the abdomen. FINDINGS: The bowel gas pattern is normal with no evidence of ileus or obstruction. No unusual soft tissue calcifications are noted. No metallic foreign bodies are seen. The bones are unremarkable. Small sclerotic density just to the midline of the left SI joint. XR/XR KUB IMPRESSION: No metallic foreign bodies are seen. Electronically signed by: Kevin Cardona MD 06/17/2024 06:31 PM EDT
[2024-06-16 18:04] VITALS: BP 130/70; PULSE 66; O2SAT 95
--- NOTE | 2024-06-16 18:21 | ED_ITS ---
HPI - General Adult General Chief complaint: Altered Mental Status Stated complaint: WEAKNESS/AMS, ? MARIJUANA USE Time Seen by Provider: 06/16/24 18:07 Source: patient, EMS and old records reviewed Mode of arrival: EMS Limitations: no limitations History of Present Illness ED Provider: DR. Khan HPI narrative: 63-year-old male who lives home alone have a technician chemical cleaning come to help him who found him today not acting himself she thought that he smoked marijuana with his neighbor, patient do not know why he is in the hospital today has no complaint, patient is a poor historian, patient with extensive history of psychiatric disorder taking psychiatric medications, patient declined any headache, reviewing old records of his PCP describes that the patient is not very receptive. However patient declined SI or HI, no hallucination. Related Data Home Medications ?Medication ?Instructions ?Recorded ?Confirmed paroxetine HCl 40 mg tablet (Paxil) 40 mg PO DAILY 07/15/20 04/10/24 risperidone microspheres 50 mg/2 50 mg IM Q2W 07/15/20 04/10/24 mL intramuscular susp,ext release benztropine 1 mg tablet 1 mg PO DAILY 03/17/21 04/10/24 lithium carbonate 300 mg capsule 300 mg PO BID 12/14/21 04/10/24 Previous Rx's ?Medication ?Instructions ?Recorded lidocaine HCl 4 % topical cream 1 appl topical BID PRN pain 30 12/31/21 (Aspercreme (lidocaine HCl)) days #120 grams omega 8-xjo-rhp-fish oil 300 1 cap PO BID 90 days #180 caps 01/01/24 mg-1,000 mg capsule levothyroxine 112 mcg tablet 112 mcg PO QAM 90 days #90 tabs 01/11/24 amlodipine 5 mg tablet 5 mg PO DAILY 90 days #90 tabs 01/26/24 ezetimibe 10 mg tablet (Zetia) 10 mg PO DAILY #90 tabs 01/26/24 gemfibrozil 600 mg tablet (Lopid) 600 mg PO BID 90 days #180 tabs 01/26/24 omeprazole 20 mg capsule,delayed 20 mg PO DAILY 90 days #90 caps 01/26/24 release cholecalciferol (vitamin D3) 50 50 mcg PO DAILY 90 days #90 caps 01/31/24 mcg (2,000 unit) capsule acetaminophen 650 mg 650 mg PO ONCE PRN fever or pain 04/09/24 tablet,extended release 30 days #30 tabs budesonide 90 mcg/actuation breath 1 inh inhalation BID #1 ea 04/09/24 activated powder inhaler (Pulmicort Flexhaler) dutasteride 0.5 mg capsule 0.5 mg PO DAILY 90 days #90 caps 05/17/24 tamsulosin 0.4 mg capsule (Flomax) 0.8 mg (2 x 0.4 mg) PO DAILY 90 05/17/24 days #180 caps vitamin B complex 1 cap PO DAILY #90 caps 05/20/24 Allergies Allergy/AdvReac Type Severity Reaction Status Date / Time atorvastatin [From LIPITOR] Allergy Unknown HIGH LFTS Verified 06/16/24 18:47 Review of Systems 2 Review of Systems: all other systems are reviewed and are negative Constitutional: Reports as per HPI and Reports no additional constitutional complaints Eyes: Reports as per HPI and Reports no additional eye complaints Reports system reviewed and no additional complaints, except as documented Cardiovascular: Reports as per HPI and Reports no additional cardiovascular complaints Respiratory: Reports as per HPI and Reports no additional respiratory complaints Gastrointestinal: Reports as per HPI and Reports no additional gastrointestinal complaints Genitourinary: Reports no additional female genitourinary complaints Musculoskeletal: Reports no additional musculoskeletal complaints Skin/Breast: Reports system reviewed and no additional complaints, except as docu Psychiatric: Reports no additional psychiatric complaints Endocrine: Reports no additional endocrine complaints Hematologic/Lymphatic: Reports no additional hematologic/lymphatic complaints Allergic/Immunologic: Reports no additional allergic/immunologic complaints Reports system reviewed and no additional complaints, except as documented and Reports Abnormal speech present [facility] Past Medical History Medical History Hypercalcemia due to lithium Non-toxic multinodular goiter Vitamin D deficiency 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 Encounter for general adult medical examination with abnormal findings Alcoholic liver disease Schizoaffective disorder Depression, major, recurrent (Unknown) Thrombocytosis Obesity Tobacco abuse BPH (benign prostatic hyperplasia) COPD (chronic obstructive pulmonary disease) Lipid disorder Chronic GERD Hypothyroidism Surgical History History of surgery History of hernia repair Family History Family History Father HTN (hypertension) CVD (cardiovascular disease) Sister AIDS Maternal Grandfather Unknown family medical history Maternal Grandmother Unknown family medical history Paternal Grandfather Unknown family medical history Paternal Grandmother Unknown family medical history Sister No problems noted. Sister No problems noted. Sister No problems noted. Social History Social History Household Members: None Housing: Apartment Are you a primary hospice spiritual care coordinator to a significant other at home: No Do you presently have visiting nurse or other home services: Yes Alcohol intake: former Patient Tobacco Use Status: Current everyday Tobacco user Tobacco use type: Cigar Cigarette Packs Per Day: 1 e-Cigarette/Vaping Use: Never Used Substance Use Type: Marijuana Advance Directives: Yes Advance Directives on File: Yes Advance Directives Date on File: 08/16/22 Do you have a plan to hurt others: No Plan service: No Current occupational status: disabled Cognitive needs: No Hearing needs: No Vision needs: No Physical Exam ED Vital Signs: Vital Signs - 24 hr 06/16/24 18:38 Temperature 0 F L Pulse Rate 60 Respiratory Rate 20 Blood Pressure 160/74 H Pulse Oximetry 96 Oxygen Delivery Method Room Air BMI result Body Mass Index 19.8 Vital signs have been reviewed and appear to be correct. Blood pressure elevated. Heart rate normal. Respiratory rate normal. Temperature normal. Oxygen saturation normal. Appearance: disheveled, poor grooming, Alert. Oriented X2 ( place and time). No acute distress. Head: Normal external exam. Normocephalic. Atraumatic. No Breaux signs noted. No raccoon eyes noted Eyes: PERRLA. EOMI. Conjunctiva and sclera normal. Eyelids normal. ENT: TM's Normal. Pharynx normal. Uvula midline. Moist mucous membranes. No trismus noted. No drooling noted. No muffled voice noted. Neck: Normal inspection. Neck supple. FROM. No adenopathy. Thyroid Normal. No meningeal signs. No neck mass noted. CVS: Normal heart rate and rhythm. Heart sound normal. No murmurs noted. Pulses normal throughout. Respiratory: No respiratory distress. Painless inspiration. Breath sounds normal. No wheezes/rales/rhonchi noted. Chest nontender. No accessory muscle usage noted or decreased air movement noted. Abdomen: Soft and nontender. Bowel sounds normal in all 4 quadrants. No distention noted. No organomegaly noted. No visible injury noted. Back: No CVA tenderness. Full range of motion noted. Skin: Skin warm and dry. Normal skin color. Normal skin turgor. No rashes/lesions/lacerations noted. Extremities: No lower extremity edema. Extremities exhibit normal range of motion. Extremities nontender. Neuro: Oriented X 2. Cranial nerve exam: II-XII are grossly intact No motor deficit. No sensory deficit. Reflexes normal. Course Reevaluation(s) Reevaluation #1: patient still confused, patient wants to go home found to have high lithium level, patient feels thirsty and keep asking for water to drink. Patient with chronic renal insufficiency but no worsening of his renal functional today. Time: 20:54 Medical Decision Making Differential Diagnosis Differential Diagnoses: The differential diagnosis associated with the presentation includes ( intracranial pathology, electrolyte derangement, lithium toxicity, severe anemia, UTI, substance abuse,) Admission/Observation Consideration of admission/observation: Escalation of care including admission/observation considered Consult Healthcare Provider Management of the patient was discussed with: Hospitalist ( Dr. Kim) Lab Data MDM Lab Attestation statement: I reviewed the patient's lab results. 06/16/24 19:54 06/16/24 19:55 Labs: Lab Results 06/16/24 06/16/24 Range/Units 19:54 19:55 WBC 17.7 H (4.8-10.8) X10*3/uL RBC 4.69 (4.60-5.80) X10*6/uL Hgb 14.2 (14.0-18.0) g/dl Hct 41.6 L (42.0-52.0) % MCV 88.7 (80.0-98.0) fL MCH 30.3 (27.0-33.0) pg MCHC 34.1 (31.0-36.0) g/dl RDW 14.0 (11.0-16.0) % Plt Count 211 (160-400) X10*3/uL MPV 9.2 L (9.4-12.4) fL Immature Gran % (Auto) 0.3 (0.0-0.4) % Neut % (Auto) 43.5 L (45-73) % Lymph % (Auto) 49.3 H (20-40) % [place] % (Auto) 5.2 (2-11) % Eos % (Auto) 1.4 (0-4) % Baso % (Auto) 0.3 (0-2) % Lymph # (Auto) 8.7 H (1.2-4.9) X10*3/uL [place] # (Auto) 0.9 (0.1-1.2) X10*3/uL Eos # (Auto) 0.2 (0.0-0.4) X10*3/uL Baso # (Auto) 0.1 (0.0-0.2) X10*3/uL Abs Immat Gran (auto) 0.05 H (0.00-0.03) X10*3/uL Absolute Neuts (auto) 7.7 (2.0-8.3) x10*3/uL Absolute Nucleated RBC 0.000 (0.0-0.012) X10*3/uL Nucleated RBC % (auto) 0.0 (0.0-0.2) /100WBC Sodium 135 (135-145) mmol/L Potassium 4.3 (3.3-5.1) mmol/L Chloride 105 (96-108) mmol/L Carbon Dioxide 20 L (22-29) mmol/L Anion Gap 14 (12-20) BUN 36 H (9-16) mg/dL Creatinine 1.73 H (0.5-1.4) mg/dL Estim Creat Clear Calc 37.6 Estimated GFR 40 Random Glucose 112 (60-115) mg/dL Calcium 11.1 H (8.4-10.2) mg/dL Total Bilirubin 1.5 H (0.0-1.0) mg/dL Direct Bilirubin 0.9 H (0.0-0.5) mg/dL AST 21 (5-37) U/L ALT 13 (0-40) U/L Alkaline Phosphatase 110 (39-117) U/L Troponin I High Sens 8.7 (<3.5-35.0) ng/L B-Natriuretic Peptide 16 (<100) pg/mL Total Protein 7.4 (6.5-8.0) g/dL Albumin 4.4 (3.5-5.0) g/dL Lipase 39 (8-78) U/L [place] 2.05 H* (0.60-1.20) mmol/L Independent Interpretation I performed an independent interpretation of an: CT Scan ( head:1. No evidence of acute intracranial hemorrhage or edematous territorial infarction. 2. Mild to moderate underlying microangiopathy and generalized cerebral volume loss. ) Radiology Impression Discussion of test interpretation with radiology: I have reviewed the radiologist's reading. Chronic Conditions Patient?s care impacted by: Other ( Taking antipsychotic medication.) Discharge Plan Discharge Clinical Impression: [place] toxicity, Altered mental status Patient Disposition: Admitted As Inpatient Print Language: Bol[place]ian
--- NOTE | 2024-06-16 18:36 | MHC.EDTECH ---
PATIENT REFUSED VITAL SIGNS AND BLOOD WORK.RN MADE AWARE
[2024-06-16 18:38] VITALS: BP 160/74; PULSE 60; RESP 20; TEMP -17.7; TEMP 0; O2SAT 96; BMI 19.8
--- NOTE | 2024-06-16 18:38 | PC.NURSE ---
Pt. refusing care- vital signs, labs, etc. States that he wants to go home. Heike Khan MD notified.
--- NOTE | 2024-06-16 18:48 | PC.NURSE ---
Pt. refusing temperature.
--- NOTE | 2024-06-16 19:00 | PC.NURSE ---
Report given to Mago Kruger RN
[2024-06-16 20:03] LABS: Basophils Absolute Auto 0.1 X10*3/uL (0.0-0.2); Basophils Percent Auto 0.3 % (0-2); Eosinophils Absolute Auto 0.2 X10*3/uL (0.0-0.4); Eosinophils Percent Auto 1.4 % (0-4); Hematocrit 41.6 % (42.0-52.0); Hemoglobin 14.2 g/dl (14.0-18.0); Imm Gran Abs Auto 0.05 X10*3/uL (0.00-0.03); Imm Gran Pct Auto 0.3 % (0.0-0.4); Lymphocytes Absolute Auto 8.7 X10*3/uL (1.2-4.9); Lymphocytes Percent Auto 49.3 % (20-40); MANUAL DIFF FLAG SCAN; Mean Corpuscular HGB Conc 34.1 g/dl (31.0-36.0); Mean Corpuscular Hemoglobin 30.3 pg (27.0-33.0); Mean Corpuscular Volume 88.7 fL (80.0-98.0); Mean Platelet Volume 9.2 fL (9.4-12.4); Monocytes Absolute Auto 0.9 X10*3/uL (0.1-1.2); Monocytes Percent Auto 5.2 % (2-11); Neutrophils Absolute Auto 7.7 x10*3/uL (2.0-8.3); Neutrophils Percent Auto 43.5 % (45-73); Platelet Count 211 X10*3/uL (160-400); Red Blood Count 4.69 X10*6/uL (4.60-5.80); SCAN SMEAR FLAG 1; White Blood Count 17.7 X10*3/uL (4.8-10.8)
[2024-06-16 20:22] LABS: B Type Natriuretic Peptide 16 pg/mL (<100)
[2024-06-16 20:22] LABS: Alanine Aminotransferase 13 U/L (0-40); Albumin Level 4.4 g/dL (3.5-5.0); Alkaline Phosphatase 110 U/L (39-117); Anion Gap 14 (12-20); Aspartate Amino Transferase 21 U/L (5-37); Bilirubin Direct 0.9 mg/dL (0.0-0.5); Bilirubin Total 1.5 mg/dL (0.0-1.0); Blood Urea Nitrogen 36 mg/dL (9-16); Calcium 11.1 mg/dL (8.4-10.2); Carbon Dioxide 20 mmol/L (22-29); Chloride 105 mmol/L (96-108); Creatinine Clr Calc Pharmacy 37.6; Estimated Glomerular Filt Rate 40; Glucose Random 112 mg/dL (60-115); Lipase 39 U/L (8-78); Potassium 4.3 mmol/L (3.3-5.1); Sodium 135 mmol/L (135-145); Total Protein 7.4 g/dL (6.5-8.0)
[2024-06-16 20:25] LABS: Lithium 2.05 mmol/L (0.60-1.20)
[2024-06-16 20:30] LABS: Troponin-I High Sensitivity 8.7 ng/L (<3.5-35.0)
[2024-06-16 20:55] LABS: SLIDE REVIEW VERIFIED
--- NOTE | 2024-06-16 20:57 | P.HPHOSP_ITS ---
History of Present Illness Date of Service: 06/16/24 Chief Complaint: Altered mentation This is a 63-year-old male with pertinent history of CLL, hypertension, schizoaffective disorder, alcoholic liver disease, major depressive disorder, BPH, COPD not on home oxygen, hypothyroidism, mixed hyperlipidemia, gastroesophageal reflux disease who was brought to the emergency department for evaluation of altered mentation. As per property controller at home patient was not acting himself and hence he was sent to the ER. Patient does not know why he is in the hospital. He is disoriented to place, time. He has no complaints at the time of my evaluation. Unable to obtain review of systems. The emergency department, lithium level was found to be 2 and patient was found to have acute kidney injury. 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 Encounter for general adult medical examination with abnormal findings Alcoholic liver disease Schizoaffective disorder Depression, major, recurrent (Unknown) Thrombocytosis Obesity Tobacco abuse BPH (benign prostatic hyperplasia) COPD (chronic obstructive pulmonary disease) Lipid disorder Chronic GERD Hypothyroidism Family History Father HTN (hypertension) CVD (cardiovascular disease) Sister AIDS Maternal Grandfather Unknown family medical history Maternal Grandmother Unknown family medical history Paternal Grandfather Unknown family medical history Paternal Grandmother Unknown family medical history Sister No problems noted. Sister No problems noted. Sister No problems noted. Surgical History History of surgery History of hernia repair Social History Household Members: None Housing: Apartment Are you a primary resident care director to a significant other at home: No Do you presently have visiting nurse or other home services: Yes Alcohol intake: former Patient Tobacco Use Status: Current everyday Tobacco user Tobacco use type: Cigar Cigarette Packs Per Day: 1 e-Cigarette/Vaping Use: Never Used Substance Use Type: Marijuana Advance Directives: Yes Advance Directives on File: Yes Advance Directives Date on File: 08/16/22 Do you have a plan to hurt others: No Plan service: No Current occupational status: disabled Cognitive needs: No Hearing needs: No Vision needs: No Meds Allergies Allergy/AdvReac Type Severity Reaction Status Date / Time atorvastatin [From LIPITOR] Allergy Unknown HIGH LFTS Verified 06/16/24 18:47 Active Medications: Current Medications Lactated Ringer's (Lr) 1,000 mls @ 999 mls/hr IV .Q1H1M SALAZAR Stop: 06/16/24 21:45 Home Medications ?Medication ?Instructions ?Recorded ?Confirmed ?Last Taken ?Type paroxetine HCl 40 mg tablet (Paxil) 40 mg PO DAILY 07/15/20 04/10/24 Unknown History risperidone microspheres 50 mg/2 50 mg IM Q2W 07/15/20 04/10/24 Unknown History mL intramuscular susp,ext release benztropine 1 mg tablet 1 mg PO DAILY 03/17/21 04/10/24 Unknown History lithium carbonate 300 mg capsule 300 mg PO BID 12/14/21 04/10/24 Unknown History Physical Exam 2 Vital Signs and Narrative: Vital Signs: Last Vital Signs Temp 0 F L 06/16/24 18:38 Pulse 60 06/16/24 18:38 Resp 20 06/16/24 18:38 BP 160/74 H 06/16/24 18:38 Pulse Ox 96 06/16/24 18:38 O2 Del Method Room Air 06/16/24 18:38 BMI result Body Mass Index 19.8 Middle-aged male lying in bed in no distress Neck supple, no JVD Regular rate and rhythm, S1-S2 heard Regular breath sounds bilaterally, no wheezing or crackles appreciated Abdomen soft nontender, no guarding, no rigidity Patient is awake, alert and oriented to self, disoriented to place, time and person ; no rigidity, hypotonia or myoclonus Psych: Normal mood No pedal edema Results Labs 06/16/24 19:54 06/16/24 19:55 Labs: Laboratory Results - last 24 hr 06/16/24 06/16/24 19:54 19:55 MCV 88.7 MCH 30.3 MCHC 34.1 RDW 14.0 Plt Count 211 MPV 9.2 L Immature Gran % (Auto) 0.3 Neut % (Auto) 43.5 L Lymph % (Auto) 49.3 H [place] % (Auto) 5.2 Eos % (Auto) 1.4 Baso % (Auto) 0.3 Lymph # (Auto) 8.7 H [place] # (Auto) 0.9 Eos # (Auto) 0.2 Baso # (Auto) 0.1 Abs Immat Gran (auto) 0.05 H Absolute Neuts (auto) 7.7 Absolute Nucleated RBC 0.000 Nucleated RBC % (auto) 0.0 Smear Tech's Comments VERIFIED Anion Gap 14 Estim Creat Clear Calc 37.6 Estimated GFR 40 Random Glucose 112 Calcium 11.1 H Total Bilirubin 1.5 H Direct Bilirubin 0.9 H AST 21 ALT 13 Alkaline Phosphatase 110 Troponin I High Sens 8.7 B-Natriuretic Peptide 16 Total Protein 7.4 Albumin 4.4 Lipase 39 [place] 2.05 H* Imaging Radiologist's Impressions: Impressions Head CT 06/16/24 20:09 IMPRESSION: 1. No evidence of acute intracranial hemorrhage or edematous territorial infarction. 2. Mild to moderate underlying microangiopathy and generalized cerebral volume loss. Electronically signed by: William Albrecht DO 06/16/2024 08:38 PM EDT RP Assessment and Plan (1) [place] toxicity: Status: Acute (2) Altered mental status: Status: Acute Plan This is a 63-year-old male with pertinent history of CLL, hypertension, schizoaffective disorder, alcoholic liver disease, major depressive disorder, BPH, COPD not on home oxygen, hypothyroidism, mixed hyperlipidemia, gastroesophageal reflux disease who was brought to the emergency department for evaluation of altered mentation. #. Acute on chronic lithium toxicity leading to acute toxic encephalopathy: Will admit patient with cardiac monitoring. Closely monitor serum lithium and serum sodium levels. Initiating IV crystalloid resuscitation. Also obtaining TSH and EKG. Avoid NSAIDs. Consulted Nephrology. #. Acute kidney injury stage I: Monitor creatinine and urine output with crystalloid resuscitation. Avoid nephrotoxins. #. Reactive leukocytosis. No sepsis #. Hypothyroidism: On Synthroid #. Schizoaffective disorder/mood disorder: Hold lithium in the setting of lithium toxicity #. Mixed hyperlipidemia: On Zetia #. Gastroesophageal reflux disease: On PPI #. COPD: No exacerbation during admission. Continue home inhaler #. Hypertension: On amlodipine Med rec pending DVT prophylaxis: Lovenox Full code Admit as inpatient and will require two night minimum hospital stay for close monitoring of mentation, electrolytes, lithium levels, IV crystalloid resuscitation (as above), which is not possible in a lesser acute setting. Nephrology consult pending Quality Stroke Does the patient have a stroke diagnosis?: No VTE Prior VTE?: No VTE Risk Level:: Medical - moderate - high VTE Device Contraindication: Treatment Not Indicated VTE Drug Contraindication: N/A - Med Ordered
[2024-06-16] MEDS: Lactated Ringers 1,000 ML 999 ML IV (22:43)
--- NOTE | 2024-06-16 22:43 | PC.NURSE ---
LR at 125 ml/hr not given, med cancelled b Dr. Kim.
[2024-06-16] MEDS: Enoxaparin Sodium 40 MG/0.4 ML SYRINGE SUBCUT (22:44)
[2024-06-16 23:08] VITALS: BP 157/70; PULSE 65; RESP 16; TEMP 36.7; O2SAT 94
--- NOTE | 2024-06-16 23:36 | PC.NURSE ---
Patient is resting on the stretcher bed, opens his eyes when called by name and is able to answer questions with yes/no answers. Patient denies any pain. Vital signs WNL except elevated BP 157/70, Dr. Kim aware. Patient offers no complaints at this time, plan of care ongoing.
[2024-06-16] MEDS: 0.9 % Sodium Chloride 1,000 ML 150 ML IVCONT (23:50)
[2024-06-17] VITALS (7 sets, daily range): BP systolic 103–145; BP diastolic 47–83; PULSE 68–100; RESP 19–23; TEMP 36.7–37.2; O2SAT 95–97
--- NOTE | 2024-06-17 | ECG_ITS ---
Test Reason : A-FIB Blood Pressure : / mmHG Vent. Rate : 102 BPM Atrial Rate : 000 BPM P-R Int : 000 ms QRS Dur : 102 ms QT Int : 348 ms P-R-T Axes : 000 077 -22 degrees QTc Int : 453 ms Atrial fibrillation with rapid ventricular response Cannot rule out Anterior infarct , age undetermined Abnormal ECG When compared with ECG of 16-JUN-2024 22:20, Atrial fibrillation has replaced Sinus bradycardia Heart rate has increased Referred By: Miriam Wise Electronically Signed By:MILE REED
[2024-06-17 01:57] LABS: Lithium 1.85 mmol/L (0.60-1.20)
--- NOTE | 2024-06-17 01:58 | PC.NURSE ---
critical result received- lithium 1.85. and ALEN Mercedes aware.
[2024-06-17 05:25] LABS: Hematocrit 43.7 % (42.0-52.0); Hemoglobin 14.3 g/dl (14.0-18.0); Mean Corpuscular HGB Conc 32.7 g/dl (31.0-36.0); Mean Corpuscular Hemoglobin 29.7 pg (27.0-33.0); Mean Corpuscular Volume 90.9 fL (80.0-98.0); Mean Platelet Volume 10.1 fL (9.4-12.4); Platelet Count 219 X10*3/uL (160-400); Red Blood Count 4.81 X10*6/uL (4.60-5.80); Red Cell Distribution Width 13.6 % (11.0-16.0)
[2024-06-17 05:54] LABS: Lithium 1.82 mmol/L (0.60-1.20)
[2024-06-17 05:57] LABS: Anion Gap 16 (12-20); Blood Urea Nitrogen 31 mg/dL (9-16); Calcium 10.9 mg/dL (8.4-10.2); Carbon Dioxide 16 mmol/L (22-29); Chloride 110 mmol/L (96-108); Creatinine Clr Calc Pharmacy 45.2; Estimated Glomerular Filt Rate 49; Glucose Random 141 mg/dL (60-115); Potassium 4.1 mmol/L (3.3-5.1); Sodium 138 mmol/L (135-145)
--- NOTE | 2024-06-17 06:03 | PC.NURSE ---
Patient's O2 Sat noted to be 88% RA. O2 applied via NC at 2 LPM with improvement noted, patient saturating 92-93% on supplemental O2.
[2024-06-17 06:14] LABS: Thyroid Stimulating Hormone 0.23 uIU/mL (0.32-4.0)
[2024-06-17] MEDS: 0.9 % Sodium Chloride 1,000 ML 150 ML IVCONT ×2 (06:40→12:36)
[2024-06-17 09:56] LABS: Lithium 1.62 mmol/L (0.60-1.20)
--- NOTE | 2024-06-17 09:56 | P.PNIM_ITS ---
Subjective Subjective Date of Service: 06/17/24 Interval History: Seen in follow-up for lithium toxicity, acute kidney injury Interval history: Patient opens eyes to painful stimulus only, otherwise unresponsive. Renal function improving. No tremors, hyperreflexia noted. [place] trending down to 1.68 today, currently on hold. Creat improving. New onset afib with rvr rates 104-107 Review of Systems Review of Systems: Yes Unobtainable due to mental status Physical Exam 2 Vital Signs: Vital Signs: Last Vital Signs Temp 98.1 F 06/17/24 08:18 Pulse 68 06/17/24 08:18 Resp 20 06/17/24 08:18 BP 128/73 06/17/24 08:18 Pulse Ox 95 06/17/24 08:18 O2 Del Method Nasal Cannula 06/17/24 08:18 O2 Flow Rate 2 06/17/24 08:18 BMI result Body Mass Index 19.8 Constitutional - not responsive except to painful stimulus, No apparent distress Eyes - PERRLA, EOMI Cardiovascular - S1S2, irregular rhythm, normal rate, No edema Respiratory - Normal lung expansion, Normal respiratory effort, No respiratory distress, CTA bilaterally Gastrointestinal - suprapubic distension. +BS; No rebound or guarding Extremities - no calf tenderness bilaterally, no swelling Skin - Warm/Dry Neurological - Unresponsive, opening eyes to painful stimulus only. No hyperreflexia/clonus Objective Data Active Medications Acetaminophen (Acetaminophen 325 Mg Tablet) 650 mg PO Q6H PRN PRN Reason: Pain, Mild (Pain Scale 1-3), fever or headache Calcium Carbonate (Calcium Carbonate 750 Mg Tab.Chew) 750 mg PO Q4H PRN PRN Reason: Heartburn Enoxaparin Sodium (Enoxaparin Sodium 40 Mg/0.4 Ml Syringe) 40 mg SUBCUT Q24H [facility] Last Admin: 06/16/24 22:44 Dose: 40 mg Documented By: JANETT Sodium Chloride (Ns) 1,000 mls @ 150 mls/hr IVCONT .Q6H40M [facility] Last Admin: 06/17/24 06:40 Dose: 150 mls/hr Documented By: JANETT Magnesium Hydroxide (Milk Of Magnesia 30 Ml Oral.Susp) 30 ml PO DAILY PRN PRN Reason: Constipation Melatonin (Melatonin 3 Mg Tablet) 6 mg PO BEDTIME PRN PRN Reason: Insomnia Ondansetron HCl (Ondansetron Hcl 4 Mg/2 Ml Vial) 4 mg IVPUSH Q8H PRN PRN Reason: Nausea and Vomiting Sodium Chloride (0.9 % Sodium Chloride Flush 3 Ml Syringe) 3 ml IVFLUSH QSHIFT [facility] Last Admin: 06/17/24 09:47 Dose: Not Given Documented By: SHAR Non-Admin Reason: IV Running Labs 06/17/24 04:36 06/17/24 04:36 Labs: Laboratory Results - last 24 hr 06/16/24 06/16/24 06/17/24 19:54 19:55 01:29 MCV 88.7 MCH 30.3 MCHC 34.1 RDW 14.0 Plt Count 211 MPV 9.2 L Immature Gran % (Auto) 0.3 Neut % (Auto) 43.5 L Lymph % (Auto) 49.3 H Lamar % (Auto) 5.2 Eos % (Auto) 1.4 Baso % (Auto) 0.3 Lymph # (Auto) 8.7 H Lamar # (Auto) 0.9 Eos # (Auto) 0.2 Baso # (Auto) 0.1 Abs Immat Gran (auto) 0.05 H Absolute Neuts (auto) 7.7 Absolute Nucleated RBC 0.000 Nucleated RBC % (auto) 0.0 Smear Tech's Comments VERIFIED Anion Gap 14 Estim Creat Clear Calc 37.6 Estimated GFR 40 Random Glucose 112 Calcium 11.1 H Total Bilirubin 1.5 H Direct Bilirubin 0.9 H AST 21 ALT 13 Alkaline Phosphatase 110 Troponin I High Sens 8.7 B-Natriuretic Peptide 16 Total Protein 7.4 Albumin 4.4 Lipase 39 TSH [place] 2.05 H* 1.85 H* 06/17/24 04:36 MCV 90.9 MCH 29.7 MCHC 32.7 RDW 13.6 Plt Count 219 MPV 10.1 Immature Gran % (Auto) Neut % (Auto) Lymph % (Auto) Lamar % (Auto) Eos % (Auto) Baso % (Auto) Lymph # (Auto) Lamar # (Auto) Eos # (Auto) Baso # (Auto) Abs Immat Gran (auto) Absolute Neuts (auto) Absolute Nucleated RBC 0.000 Nucleated RBC % (auto) 0.0 Smear Tech's Comments Anion Gap 16 Estim Creat Clear Calc 45.2 Estimated GFR 49 Random Glucose 141 H Calcium 10.9 H Total Bilirubin Direct Bilirubin AST ALT Alkaline Phosphatase Troponin I High Sens B-Natriuretic Peptide Total Protein Albumin Lipase TSH 0.23 L [place] 1.82 H* Assessment and Plan (1) VALENCIA (acute kidney injury): Status: Acute (2) [place] toxicity: Status: Acute (3) Altered mental status: Status: Acute Plan 63-year-old male with pertinent history of CLL, hypertension, schizoaffective disorder, alcoholic liver disease, major depressive disorder, BPH, COPD not on home oxygen, hypothyroidism, mixed hyperlipidemia, gastroesophageal reflux disease admitted for acute metabolic encephalopathy as well as lithium toxic [place] and VALENCIA # acute metabolic encephalopathy- ?toxic component -initially thought to be related to lithium toxicity however lithium level trending down to 1.68 and patient remains responsive only to painful stimulus only -?r/t infection. New LLL infiltrate on CXR though no sepsis/fevers/cough noted -Check UA, UTox -VBG reassuring. No acidosis/hypercapnia -ammonia wnl -TSH slightly low at 0.23 but normal free T4 -no uremia -head CT without any acute intracranial abnormality -monitor mentation closely -check EEG -given new onset afib, cannot r/out global cva given encephalopathy/unresponsiveness. Check MRI brain #New onset atrial fibrillation with RVR -?in setting of lihtium toxicity -EKG shows new onset afib with rvr -therapeutic Lovenox -echo -cardiology consult -monitor on tele #Acute LLL pneumonia -leukocytosis chronic due to CLL. Tachycardia due to new afib. Afebrile. No sepsis -CXR shows LLL pneumonia. ?aspiration given encephalopathy/unresponsiveness though is maintaining airway -IV zosyn, vanco -sputum culture, strep pneumo antigen, Legionella antigen, MRSA nasal swab pending # acute lithium toxicity -on arrival, lithium level 2.05, this morning 1.68 -hold lithium, monitor levels closely -psychiatry consult # acute kidney injury -likely due to above -creatinine on arrival 1.73 --> 1.44 -avoid nephrotoxins -nephrology following- check urine sodium, urine creatinine, urine protein -consider Carlton catheter #Acute urinary retention -carlton catheter placed, Retaining 1.4L -nephro following #Acute hypercalcemia -due to lithium, nephro following #chronic leukocytosis due to CLL -not related to infection/sepsis # hypothyroidism -continue levothyroxine #Schizoaffective disorder/mood disorder -hold lithium due to above -psychiatry consult pending # hyperlipidemia -continue Zetia # GERD -PPI # COPD -no acute exacerbation. Continue home inhalers # hypertension -continue amlodipine once tolerating p.o. DVT prophylaxis: Lovenox Full code Patient requires ongoing inpatient stay due to acute metabolic encephalopathy, VALENCIA, lithium toxicity Quality Stroke Does the patient have a stroke diagnosis?: No VTE Prior VTE?: No VTE Risk Level:: Medical - moderate - high VTE Device Contraindication: Treatment Not Indicated VTE Drug Contraindication: N/A - Med Ordered
--- NOTE | 2024-06-17 10:27 | PHA.MEDREC ---
Addendum entered by Betsy Mcrae, [facility] 06/17/24 13:46: typo: regarding Pulmicort: facility has not administered it yet, claims show it was filled 06/13, but pt hasn't started. Addendum entered by Betsy Mcrae, [facility] 06/17/24 11:26: Reviewed by [facility]. Risperidone Consta last filled 05/29/24 at pharmacy. Facility has not administered it yet, claims show it was filled 06/13, but pt hasn't started. Pt's nurse is Musa, . Original Note: Pharmacy Consult ? Medication Reconciliation Pharmacy has completed the medication reconciliation. Spoke to facility where patient nurse Musa is working and they state Musa is not in but they were able to get the patient med list and confirm with me over the phone what patient is taking but was not able to confirm the last time he got Risperidone Microsphere injection since its every 2 weeks and they state they do not keep notes on that information. Also they are not sure the last time patient took his medications since the nurse is not there who usually takes care of the patient.
[2024-06-17 11:32] LABS: Free T4 (Free Thyroxine) 1.03 ng/dL (0.71-1.85)
--- NOTE | 2024-06-17 11:34 | PC.NURSE ---
16F carlton catheter placed. Pt tolerated procedure well.
--- NOTE | 2024-06-17 11:43 | P.CONNP_ITS ---
History of Present Illness Reason for Consult Consult date: 06/17/24 Chief Complaint Chief complaint: AMS History of Present Illness Narrative: This is a 63-year-old male with a medical history of CLL, hypertension, schizoaffective disorder, alcoholic liver disease, major depressive disorder, BPH, COPD, hypothyroidism, HLD, GERD who is here for altered mental status. pt is on lithium for management of schizoaffective disorder, lithium level significantly elevated at above 2 in ED on 06/16 evening lithium was held and continues to slowly improve VALENCIA on arrival to ED - Creatinine 1.73, previously 1.42 06/03, has been vascilating between 0.9m and 1.2 prior to that level calcium is elevated, 11.1 on arrival, 10.9 today potassium, sodium within normal limits, pt has acidosis at bedside this morning pt does not open eyes to voice, though responds verbally with some grunting/one-word answers he is not hyperreflexive bladder seems distended on exam, unclear if he has urinated since arrival Review of Systems Review of Systems Yes Unobtainable due to mental status Constitutional: Reports other (pt somnolent on exam ) [facility] Past Medical History Medical History Hypercalcemia due to lithium Non-toxic multinodular goiter Vitamin D deficiency 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 Encounter for general adult medical examination with abnormal findings Alcoholic liver disease Schizoaffective disorder Depression, major, recurrent (Unknown) Thrombocytosis Obesity Tobacco abuse BPH (benign prostatic hyperplasia) COPD (chronic obstructive pulmonary disease) Lipid disorder Chronic GERD Hypothyroidism Family History Family History Father HTN (hypertension) CVD (cardiovascular disease) Sister AIDS Maternal Grandfather Unknown family medical history Maternal Grandmother Unknown family medical history Paternal Grandfather Unknown family medical history Paternal Grandmother Unknown family medical history Sister No problems noted. Sister No problems noted. Sister No problems noted. Surgical History Surgical History History of surgery History of hernia repair Social History Social History Household Members: None Housing: Apartment Are you a primary care program resident to a significant other at home: No Do you presently have visiting nurse or other home services: Yes Alcohol intake: former Patient Tobacco Use Status: Tobacco use Unknown Tobacco use type: Cigar Cigarette Packs Per Day: 1 e-Cigarette/Vaping Use: Never Used Substance Use Type: Marijuana Advance Directives: Yes Advance Directives on File: Yes Advance Directives Date on File: 08/16/22 Do you have a plan to hurt others: No Plan Nutrition Risks: No Nutritional Risk service: No Current occupational status: disabled Cognitive needs: No Hearing needs: No Vision needs: No Meds Allergies Allergy/AdvReac Type Severity Reaction Status Date / Time atorvastatin [From LIPITOR] Allergy Unknown HIGH LFTS Verified 06/16/24 18:47 Active Medications: Current Medications Acetaminophen (Acetaminophen 325 Mg Tablet) 650 mg PO Q6H PRN PRN Reason: Pain, Mild (Pain Scale 1-3), fever or headache Calcium Carbonate (Calcium Carbonate 750 Mg Tab.Chew) 750 mg PO Q4H PRN PRN Reason: Heartburn Enoxaparin Sodium (Enoxaparin Sodium 40 Mg/0.4 Ml Syringe) 40 mg SUBCUT Q24H [facility] Last Admin: 06/16/24 22:44 Dose: 40 mg Sodium Chloride (Ns) 1,000 mls @ 150 mls/hr IVCONT .Q6H40M [facility] Last Admin: 06/17/24 06:40 Dose: 150 mls/hr Magnesium Hydroxide (Milk Of Magnesia 30 Ml Oral.Susp) 30 ml PO DAILY PRN PRN Reason: Constipation Melatonin (Melatonin 3 Mg Tablet) 6 mg PO BEDTIME PRN PRN Reason: Insomnia Ondansetron HCl (Ondansetron Hcl 4 Mg/2 Ml Vial) 4 mg IVPUSH Q8H PRN PRN Reason: Nausea and Vomiting Sodium Chloride (0.9 % Sodium Chloride Flush 3 Ml Syringe) 3 ml IVFLUSH QSHIFT [facility] Last Admin: 06/17/24 09:47 Dose: Not Given Home Medications ?Medication ?Instructions ?Recorded ?Confirmed ?Last Taken ?Type paroxetine HCl 40 mg tablet (Paxil) 40 mg PO BEDTIME 07/15/20 06/17/24 Unknown History risperidone microspheres 50 mg/2 50 mg IM Q2W 07/15/20 06/17/24 Unknown History mL intramuscular susp,ext release benztropine 1 mg tablet 1 mg PO DAILY 03/17/21 06/17/24 Unknown History lithium carbonate 300 mg capsule 300 mg PO BID 12/14/21 06/17/24 Unknown History amlodipine 5 mg tablet 5 mg PO BEDTIME 06/17/24 06/17/24 Unknown History dutasteride 0.5 mg capsule 0.5 mg PO BEDTIME 06/17/24 06/17/24 Unknown History ferrous sulfate 325 mg (65 mg 325 mg PO DAILY 06/17/24 06/17/24 Unknown History iron) tablet (Iron (ferrous sulfate)) fluticasone propionate 44 2 puff inhalation BID 06/17/24 06/17/24 Unknown History mcg/actuation HFA aerosol inhaler levothyroxine 112 mcg tablet 112 mcg PO DAILY@0606/17/24 06/17/24 Unknown History naltrexone 50 mg tablet 50 mg PO DAILY 06/17/24 06/17/24 Unknown History omeprazole 20 mg capsule,delayed 20 mg PO DAILY@62906/17/24 06/17/24 Unknown History release tamsulosin 0.4 mg capsule (Flomax) 0.8 mg PO BEDTIME 06/17/24 06/17/24 Unknown History Physical Exam Vital Signs: Last Vital Signs Temp 98.1 F 06/17/24 08:18 Pulse 68 06/17/24 08:18 Resp 20 06/17/24 08:18 BP 128/73 06/17/24 08:18 Pulse Ox 95 06/17/24 08:18 O2 Del Method Nasal Cannula 06/17/24 08:18 O2 Flow Rate 2 06/17/24 08:18 BMI result Body Mass Index 19.8 Const General: comfortable and no acute distress Neck Neck: Yes no JVD Resp Auscultation: clear to auscultation bilaterally Cardio Jugular venous distension: no JVD Rate: regular rate Rhythm: regular rhythm Heart sounds: S1 normal heart sound present and S2 normal heart sound present GI Palpation (GI): Soft to palpation Rectal Exam - Male: No tenderness General: Yes no CVA tenderness Back/Spine/Pelvis Back: no CVA tenderness Skin Rashes: no rashes Neuro Other: no hyperreflexia of upper or lower extremities on exam Extrem General: Yes normal to inspection, No edema and No pedal edema Results Lab Results 06/17/24 04:36 06/17/24 04:36 Lab results: Chemistry 06/16/24 06/17/24 19:55 04:36 Sodium 135 138 Potassium 4.3 4.1 Carbon Dioxide 20 L 16 L BUN 36 H 31 H Creatinine 1.73 H 1.44 H Calcium 11.1 H 10.9 H Hematology 06/16/24 06/17/24 19:54 04:36 WBC 17.7 H 16.0 H Hgb 14.2 14.3 Plt Count 211 219 Assessment and Plan (1) Altered mental status: Status: Acute (2) [place] toxicity: Status: Acute (3) VALENCIA (acute kidney injury): Status: Acute Plan VALENCIA likely secondary to lithium toxicity recommend continuing to hold lithium and monitor levels, reassuring that levels are decreasing recommend placement of carlton catheter, pt bladder distended recommend obtaining urine creatinine, urine protein, UA with culture lithium levels are trending downward, no indications for dialysis today Needs IV Normal Saline 150mL/hr and check lithium levels in 4 hours recommend following intake and output closely, in addition to blood pressures avoid nephrotoxic substances/medications hold calcium carbonate due to elevated calcium levels check parathyroid levels and calcium Discussed with Dr Shields Procedures Date of Service Date of Service: 06/17/24
--- NOTE | 2024-06-17 12:04 | PC.NURSE ---
Martinez cath bag emptied for 1400ml dark yellow urine.
--- NOTE | 2024-06-17 12:05 | MHC.CM.PN ---
CM attempted to meet with Patient at bedside, in the ED but he did not appear able to respond appropriately to inquires. CM attempted to speak with the only Contact listed, Musa, from [facility], at [phone], but was only able to leave a detailed message and CM awaits a return call. CM was unable to address IMM with Patient r/t AMS.CM will follow.
--- NOTE | 2024-06-17 13:53 | MHC.CM.PN ---
CM received a return call from Patient's [facility] Worker/[place] @ [phone].Patient lives alone in an apartment, uses a cane to assist with mobility, has a [employer] WOOD GR[employer]ER 2X/week, is active with [facility] and [facility] supports for Finances, Groceries, ADL's etc.Home/resume said services is the goal and CM has initiated and will follow for dc planning. PCP is Dr. Galileo Livingston and Patient likely will require assist with transport.No HCP available.CM will follow.
[2024-06-17 13:55] LABS: VBG Base Excess -5.1 mmol/L; VBG HCO3 20 mmol/L (22-26); VBG pCO2 37 mmHg; VBG pH 7.33 (7.32-7.43); VBG pO2 49 mmHg
[2024-06-17 13:57] LABS: Venous Blood Gas Refer to POC result
[2024-06-17 14:00] LABS: Ammonia 16 umol/L (13-55)
[2024-06-17 14:46] LABS: Appearance Urine Clear; Color Urine Yellow; Glucose Urine UA Negative (Negative); Leukocyte Esterase Urine Trace (Negative); Nitrite Urine Negative (Negative); UMIC TRIGGER UACC YES; Urine Blood Trace (Negative); Urine Ketones Trace mg/dL (Negative); Urine Protein 100 (2+) mg/dL (Neg-Trace)
[2024-06-17 14:53] LABS: Bacteria Urine None Seen (None Seen); Hyaline Casts Urine 0-2 /LPF (0-2); Squamous Epithelial Cell Urine 0-2 /HPF (0-2); WBC Urine 0-5 /HPF (0-5)
[2024-06-17 14:55] LABS: Amphetamine Screen Urine Not Detected (Not Detect); Barbiturates, Urine Not Detected (Not Detect); Benzodiazepines Screen Urine Not Detected (Not Detect); Buprenorphine Scr Not Detected (Not Detect); Cannabinoid Screen Urine POSITIVE (Not Detect); Cocaine Screen Urine Not Detected (Not Detect); Fentanyl, urine Not Detected (Not Detect); Methadone Screen, Urine Not Detected (Not Detect); Opiate Screen Urine Not Detected (Not Detect); Oxycodone Screen Urine Not Detected (Not Detect); Phencyclidine Screen Urine Not Detected (Not Detect)
[2024-06-17 15:00] LABS: Creatinine Urine 49.61 mg/dL
[2024-06-17 15:01] LABS: Total Protein Urine Random 81 mg/dL (<12)
[2024-06-17] MEDS: Enoxaparin Sodium 60 MG/0.6 ML SYRINGE SUBCUT (15:09)
[2024-06-17] MEDS: Piperacillin Sodium/Tazobactam 4.5 GM in 0.9 % Sodium Chloride 100 ML IV ×2 (15:13→20:42)
[2024-06-17 15:26] LABS: Lactic Acid 1.2 mmol/L (0.5-2.0); Lithium 1.54 mmol/L (0.60-1.20)
[2024-06-17] MEDS: vancomycin HCL 1,500 MG in 0.9 % Sodium Chloride 500 ML 333.33 MG IV (15:45)
--- NOTE | 2024-06-17 16:00 | PHA.PROG ---
Admission Date/Time: June 16, 2024 20:56 Indication: respiratory Weight in k.6 kg Adjusted body weight in Kg: [place] body weight in Kg: Obesity Dosing Indication % IBW: BMI 19.8 Serum Creatinine - Last 168 Hours 06/16/24 06/17/24 19:55 04:36 Creatinine 1.73 H 1.44 H Estimated CrCl and GFR - Last 168 Hours 06/16/24 06/17/24 19:55 04:36 Estim Creat Clear Calc 37.6 45.2 Estimated GFR 40 49 Vancomycin Loading Dose: 1500mg X1 Current Vancomycin Dosing Regimen: 1250 Q24H Vancomycin Monitoring using AUC goal of 400 - 600 range with trough as surrogate marker: 581 Date and Time for next Vancomycin Level to be drawn: 06/19 @1400 Pharmacist Comments on Vancomycin Plan: SCr came down from 1.73 to 1.44, giving 1250mg to hopefully get within AUC range a bit quicker and then potentially decreasing to 1000mg Q24H, depending on trough and renal function stability. predicted trough 17.6. Vancomycin dosing will take advantage of [employer] as a clinical decision support tool that uses Bayesian modeling to calculate individual patient's pharmacokinetic parameters and forecast the patient's drug concentration time course with the target goal AUC 24 range of 400 - 600 mg/L/hr.
[2024-06-17] MEDS: 0.9 % Sodium Chloride 1,000 ML 125 ML IVCONT (20:29)
--- NOTE | 2024-06-17 20:44 | PC.NURSE ---
pt not given PO night medications d/t pt inability to be aroused enough to take anything PO.
[2024-06-18] VITALS (18 sets, daily range): BP systolic 75–167; BP diastolic 43–87; PULSE 68–110; RESP 16–21; TEMP 35.8–36.8; O2SAT 88–96; BMI 27.4
--- NOTE | 2024-06-18 | EEG_ITS ---
This is a 16-channel EEG with an EKG lead. The patient is reported sleeping and confused during the tracing. Background EEG rhythm is theta to delta range with intermittent sharp to triphasic type of complexes noted that were somewhat more pronounced in the right hemispheric leads. Some lead and muscle artifacts are noted. Photic stimulation and hyperventilation are not performed. Cardiac lead does not reveal any significant abnormality. IMPRESSION: Abnormal EEG revealing bihemispheric dysfunction suggestive of metabolic encephalopathy, but also suggestion of right hemispheric irritability with suspicion of partial seizure disorder. MD DESMOND Quezada/LATHA / [id number]
[2024-06-18] MEDS: Piperacillin Sodium/Tazobactam 4.5 GM in 0.9 % Sodium Chloride 100 ML IV ×3 (03:40→20:44)
[2024-06-18] MEDS: 0.9 % Sodium Chloride 1,000 ML 125 ML IVCONT (03:49)
[2024-06-18] MEDS: Enoxaparin Sodium 60 MG/0.6 ML SYRINGE SUBCUT ×2 (03:50→14:04)
--- NOTE | 2024-06-18 07:00 | CA_ITS ---
Transthoracic Echocardiogram Patient (Last, First, Middle): Robb Rene J Gender: Male Date of : 1960 Age: 63 Procedure Date: 06/18/2024 Procedure Type: Transthoracic Echocardiogram [place] [facility] [place]: 177. cm Weight: 62.6 kg BSA: 1.78 m2 Heart Rate: bpm BP: 126 / 69 mmHg Belt Tender: BETH Referring MD: Miriam BEARD Symptoms: new onset afib Study Quality: Adequate ECG Rhythm: Atrial Fibrillation Conclusions: - Normal left ventricular cavity size. There is mildly increased left ventricular wall thickness. The left ventricular systolic function is hyperdynamic. The visually estimated ejection fraction is >70%. - The basal inferior segment is akinetic. - Normal right ventricular cavity size and systolic function. - There is mild to moderate aortic valve stenosis. Findings Left Ventricle Normal left ventricular cavity size. There is mildly increased left ventricular wall thickness. The left ventricular systolic function is hyperdynamic. The visually estimated ejection fraction is >70%. There is evidence of regional wall motion abnormalities. Diastolic function is indeterminate on the basis of available data. Wall Motion Rest Echo Findings The basal inferior segment is akinetic. Right Ventricle Normal right ventricular cavity size and systolic function. Atria The left atrium is mildly dilated. The right atrium is normal in size. Aortic Valve There is moderate calcification of the aortic valve. There is mild to moderate aortic valve stenosis. There is no aortic valve regurgitation. Mitral Valve The mitral valve appears normal. There is no mitral valve regurgitation. There is no mitral valve stenosis. Tricuspid Valve Normal tricuspid valve structure. There is no tricuspid valve regurgitation. Great Vessels There is mild dilatation of the sinuses of Valsalva measuring 3.80 cm. Venous The inferior vena cava is normal in size and collapses greater than 50% with inspiration. Pericardium/Pleural There is no evidence of pericardial effusion. Prior Study Comparison Changes noted compared to prior study dated: 03/15/2018. EF >70%, basal inferior akinesis, mild to moderate . Measurements 2D Linear Measurements IVSd: 1.15 0.6-0.9/0.6-1.0 cm LVIDd: 3.95 3.9-5.3/4.2-5.9 cm LVIDd Index: 2.22 2.4-3.2/2.2-3.1 cm/m2 LVIDs: 1.69 2.0-3.6 cm LVPWd: 1.49 0.7-1.1 cm LA Diam: 3.30 2.7-3.8/3.0-4.0 cm LAIDs Index: 1.85 1.5-2.3 cm/m2 LV Mass: 233.54 67-162/88-224 g LV Mass Index: 131.20 43-95/49-115 g/m2 LVOT Diam: 1.70 3.0+(-)1.3 cm 2D Systolic Function EF 4C: 73.70 >55% EF 2C: 64.90 >55% EF BiP: 69.10 >55% Mitral Valve MV Pk E: 0.79 MV PK A: 0.55 MV Decel Time: 299.00 E/A: 1.40 E'Lateral: 7.76 E'Medial: 8.52 E/E' Med: 9.30 E/E' Lat: 10.20 PHT: 87.00 MVA PHT: 2.53 Decel Wright: 2.64 Aortic Valve AoV Pk Jonh: 2.64 AoV Mn Jonh: 1.67 AoV VTI: 0.37 AoV Pk Grad: 28.00 Aov Mn Grad: 14.00 VANGIE Cont.VTI: 1.30 LVOT LVOT Pk Jonh: 1.31 LVOT Mn Jonh: 0.93 LVOT VTI: 0.21 LVOT Pk Grad: 7.00 LVOT Mn Grad: 4.00 LVOT Diam: 1.70 LVOT Area: 2.27 Diastolic Function MV Pk E: 0.79 MV Pk A: 0.55 E/A: 1.40 E'Medial: 8.52 E/E' Med: 9.30 E' Laterial: 7.76 E/E' Lat: 10.20 Right Ventricle TAPSE (mm): 20.40 TVS' Jonh: 16.60 Tricuspid Valve TR Pk Jonh: 2.78 TR Pk Grad: 31.00 RA Press: 3.00 RVSP: 34.00 Great Vessels Aorta Sinus of Valsalva: 3.80 2.0-3.5 cm Ao Asc: 3.20 2.1-3.4 cm Pulmonary Valve PV Pk Jonh: 1.56 Peak PV Grad: 10.00 Updated in Other Vendor System with Status of Final Efrain Esquivel MD electronically signed on 06/18/2024 8:38:17 PM with status of Final
[2024-06-18 07:21] LABS: Basophils Percent Auto 0.1 % (0-2); Eosinophils Percent Auto 0.2 % (0-4); Hematocrit 46.5 % (42.0-52.0); Hemoglobin 15.3 g/dl (14.0-18.0); Imm Gran Abs Auto 0.09 X10*3/uL (0.00-0.03); Imm Gran Pct Auto 0.4 % (0.0-0.4); Lymphocytes Percent Auto 58.2 % (20-40); MANUAL DIFF FLAG SCAN; Mean Corpuscular HGB Conc 32.9 g/dl (31.0-36.0); Mean Corpuscular Hemoglobin 30.1 pg (27.0-33.0); Mean Corpuscular Volume 91.5 fL (80.0-98.0); Mean Platelet Volume 9.8 fL (9.4-12.4); Monocytes Absolute Auto 0.8 X10*3/uL (0.1-1.2); Neutrophils Absolute Auto 7.6 x10*3/uL (2.0-8.3); Neutrophils Percent Auto 37.1 % (45-73); Platelet Count 234 X10*3/uL (160-400); Red Blood Count 5.08 X10*6/uL (4.60-5.80); Red Cell Distribution Width 14.4 % (11.0-16.0); SCAN SMEAR FLAG 1; White Blood Count 20.5 X10*3/uL (4.8-10.8)
[2024-06-18 07:22] LABS: Lymphocytes Absolute Auto 11.9 X10*3/uL (1.2-4.9)
[2024-06-18 07:30] LABS: Lithium 1.12 mmol/L (0.60-1.20)
[2024-06-18 07:45] LABS: Alanine Aminotransferase 12 U/L (0-40); Albumin Level 3.9 g/dL (3.5-5.0); Alkaline Phosphatase 104 U/L (39-117); Anion Gap 13 (12-20); Aspartate Amino Transferase 17 U/L (5-37); Bilirubin Direct 0.9 mg/dL (0.0-0.5); Bilirubin Total 1.5 mg/dL (0.0-1.0); Blood Urea Nitrogen 24 mg/dL (9-16); Calcium 11.1 mg/dL (8.4-10.2); Carbon Dioxide 19 mmol/L (22-29); Chloride 127 mmol/L (96-108); Estimated Glomerular Filt Rate 54; Glucose Random 121 mg/dL (60-115); Potassium 3.8 mmol/L (3.3-5.1); Sodium 155 mmol/L (135-145); Total Protein 6.7 g/dL (6.5-8.0)
[2024-06-18 07:47] LABS: SLIDE REVIEW VERIFIED
[2024-06-18 09:04] LABS: Vitamin D 25-OH Total 45.7 ng/mL (>30)
[2024-06-18 10:55] LABS: Anion Gap 16 (12-20); Blood Urea Nitrogen 23 mg/dL (9-16); Calcium 11.4 mg/dL (8.4-10.2); Carbon Dioxide 15 mmol/L (22-29); Chloride 129 mmol/L (96-108); Creatinine Clr Calc Pharmacy 50.9; Estimated Glomerular Filt Rate 56; Glucose Random 124 mg/dL (60-115); Potassium 3.7 mmol/L (3.3-5.1); Sodium 156 mmol/L (135-145)
[2024-06-18 10:58] LABS: Parathyroid Hormone Intact 140.2 pg/mL (8.7-77.1)
--- NOTE | 2024-06-18 11:07 | HO.WOUND ---
Wound Consult: Initial 63yr old?male admitted to [facility] on 06/16/24 - See progress notes and H&P for detailed history.? Wound consult placed for coccyx wound POA.? Photo review and chart review will assess in person at future date and time. Coccyx Etiology: ?Deep tissue Injury ?Present on Admission Wound Bed: nonblanchable dark purple tissue over bony coccyx Drainage / Odor: None Edges: ? Linear Kim wound: ? Emerson red tissue Goals of Treatment: ? Off Load Pressure and Triad to protect from friction and moisture Recommendations: 1. Turn and Reposition every 2 hours and as needed for patient comfort.? Use pillows or wedges to support off loading positions. 2. Off Load all bony prominences with use of pillows and heel boots if needed.? Apply Preventative foams where needed. ? 3. Monitor for incontinence and moisture control, use barrier creams when needed for prevention and treatment. 4. Provide adequate and supplemental nutrition.? 5. Order low air loss mattress. 6. When applicable maintain blood glucose levels per Providers order. 7. Coccyx - Off Load Pressure - Cleanse with PH balance spray or wipes, pat dry. ?Apply thin layer of Triad to wound bed - only pat and dab no scrub and rub when soiling occurs. Reapply thin layer PRN after each episode of incontinence. Re-consult wound care Nurse for wound deterioration or wound changes.
[2024-06-18] MEDS: Dextrose 5 % 1,000 ML 100 ML IVCONT (11:10)
[2024-06-18] MEDS: 0.9 % Sodium Chloride Flush 3 ML SYRINGE IVFLUSH (11:10)
[2024-06-18 11:45] LABS: MRSA Nasal PCR POSITIVE (Negative); SA Nasal PCR POSITIVE (Negative)
--- NOTE | 2024-06-18 11:47 | PM.PNNEP ---
Subjective Subjective Date of Service: 06/18/24 Interval history: This is a 63-year-old male with a medical history of CLL, hypertension, schizoaffective disorder, alcoholic liver disease, BPH, who is here for altered mental status. pt is on lithium for management of schizoaffective disorder, lithium level significantly elevated at above 2 in ED on 06/16 evening lithium was held and continues to slowly improve, current level today is normal. Creatinine is improving back to baseline levels, today 1.28 (1.73 on arrival). Previously 1.42 06/03, has been vascilating between 0.9m and 1.2 prior to that level calcium is elevated, 11.4 today, parathyroid hormone level elevated at 140 sodium is elevated today at 156 at bedside today patient is awake and raising his voice and stating that he wants to get out of here, does not answer orientation questions. he is moving all extremities but not to command patient had an EEG this a.m. due to continued altered mental status despite normalizing lithium levels. Patient has a carlton catheter in place and emptying (1600mL since carlton placed yesterday) mucous membranes are very dry. Physical Exam Vital Signs: Vital Signs: Last Vital Signs Temp 97.3 F 06/18/24 11:37 Pulse 110 H 06/18/24 11:37 Resp 20 06/18/24 11:37 BP 134/74 06/18/24 11:37 Pulse Ox 95 06/18/24 11:37 O2 Del Method Nasal Cannula 06/18/24 11:37 O2 Flow Rate 2 06/18/24 11:37 BMI result Body Mass Index 19.8 Const: General: alert, awake and confusion Orientation/consciousness: confusion Limitations: altered mental status HEENT: Mouth: mucous membranes dry Neck: Neck: Yes no JVD Resp: Other: pt pushing provider away and refuses physical exam/auscultation Cardio: Other: pt pushing provider away and refuses physical exam/auscultation GI: Other: pt pushing provider away and refuses physical exam/auscultation : Other: pt pushing provider away and refuses physical exam/auscultation Skin: Rashes: no rashes Neuro: Other: no hyperreflexia of upper or lower extremities on exam General: confusion Extrem: General: Yes normal to inspection, No edema and No pedal edema Objective Data Labs 06/18/24 06:25 06/18/24 10:27 Labs: Laboratory Results - last 24 hr 06/17/24 06/17/24 06/17/24 13:45 13:52 14:37 WBC RBC Hgb Hct MCV MCH MCHC RDW Plt Count MPV Immature Gran % (Auto) Neut % (Auto) Lymph % (Auto) [place] % (Auto) Eos % (Auto) Baso % (Auto) Lymph # (Auto) [place] # (Auto) Eos # (Auto) Baso # (Auto) Abs Immat Gran (auto) Absolute Neuts (auto) Absolute Nucleated RBC Nucleated RBC % (auto) Smear Tech's Comments VBG pH 7.33 VBG pCO2 37 VBG pO2 49 VBG HCO3 20 L VBG O2 Saturation 81.0 VBG Base Excess -5.1 Sodium Potassium Chloride Carbon Dioxide Anion Gap BUN Creatinine Estim Creat Clear Calc Estimated GFR Random Glucose Lactic Acid Calcium Total Bilirubin Direct Bilirubin AST ALT Alkaline Phosphatase Ammonia 16 Total Protein Albumin 25-OH Vitamin D Total PTH Intact Urine Color Yellow Urine Appearance Clear Urine pH 6.0 Ur Specific [place] 1.010 Urine Protein 100 (2+) H Urine Glucose (UA) Negative Urine Ketones Trace Urine Blood Trace H Urine Nitrite Negative Ur Leukocyte Esterase Trace H Urine RBC 3-5 H Urine WBC 0-5 Ur Squamous Epith Cells 0-2 Urine Bacteria None Seen Hyaline Casts 0-2 U Random Total Protein 81 H Ur Random Sodium 25.0 Urine Creatinine 49.61 Nasal Screen MRSA (PCR) Nasal S. aureus Screen Nasal MRSA/S.aureus Interp Urine Opiates Screen Not Detected Ur Buprenorphine Scrn Not Detected Ur Oxycodone Screen Not Detected Urine Methadone Screen Not Detected Urine Fentanyl Screen Not Detected Ur Barbiturates Screen Not Detected Ur Phencyclidine Scrn Not Detected Ur Amphetamines Screen Not Detected U Benzodiazepines Scrn Not Detected [place] Urine Cocaine Screen Not Detected U Marijuana (THC) Screen POSITIVE H 06/17/24 06/17/24 06/18/24 15:02 18:06 06:25 WBC 20.5 H RBC 5.08 Hgb 15.3 Hct 46.5 MCV 91.5 MCH 30.1 MCHC 32.9 RDW 14.4 Plt Count 234 MPV 9.8 Immature Gran % (Auto) 0.4 Neut % (Auto) 37.1 L Lymph % (Auto) 58.2 H [place] % (Auto) 4.0 Eos % (Auto) 0.2 Baso % (Auto) 0.1 Lymph # (Auto) 11.9 H [place] # (Auto) 0.8 Eos # (Auto) 0.0 Baso # (Auto) 0.0 Abs Immat Gran (auto) 0.09 H Absolute Neuts (auto) 7.6 Absolute Nucleated RBC 0.000 Nucleated RBC % (auto) 0.0 Smear Tech's Comments VERIFIED VBG pH VBG pCO2 VBG pO2 VBG HCO3 VBG O2 Saturation VBG Base Excess Sodium 155 H Potassium 3.8 Chloride 127 H Carbon Dioxide 19 L Anion Gap 13 BUN 24 H Creatinine 1.33 Estim Creat Clear Calc 49.0 Estimated GFR 54 Random Glucose 121 H Lactic Acid 1.2 Calcium 11.1 H Total Bilirubin 1.5 H Direct Bilirubin 0.9 H AST 17 ALT 12 Alkaline Phosphatase 104 Ammonia Total Protein 6.7 Albumin 3.9 25-OH Vitamin D Total 45.7 PTH Intact Urine Color Urine Appearance Urine pH Ur Specific [place] Urine Protein Urine Glucose (UA) Urine Ketones Urine Blood Urine Nitrite Ur Leukocyte Esterase Urine RBC Urine WBC Ur Squamous Epith Cells Urine Bacteria Hyaline Casts U Random Total Protein Ur Random Sodium Urine Creatinine Nasal Screen MRSA (PCR) POSITIVE A Nasal S. aureus Screen POSITIVE A Nasal MRSA/S.aureus Interp SEE NOTE Urine Opiates Screen Ur Buprenorphine Scrn Ur Oxycodone Screen Urine Methadone Screen Urine Fentanyl Screen Ur Barbiturates Screen Ur Phencyclidine Scrn Ur Amphetamines Screen U Benzodiazepines Scrn [place] 1.54 H* 1.12 Urine Cocaine Screen U Marijuana (THC) Screen 06/18/24 10:27 WBC RBC Hgb Hct MCV MCH MCHC RDW Plt Count MPV Immature Gran % (Auto) Neut % (Auto) Lymph % (Auto) [place] % (Auto) Eos % (Auto) Baso % (Auto) Lymph # (Auto) [place] # (Auto) Eos # (Auto) Baso # (Auto) Abs Immat Gran (auto) Absolute Neuts (auto) Absolute Nucleated RBC Nucleated RBC % (auto) Smear Tech's Comments VBG pH VBG pCO2 VBG pO2 VBG HCO3 VBG O2 Saturation VBG Base Excess Sodium 156 H Potassium 3.7 Chloride 129 H Carbon Dioxide 15 L Anion Gap 16 BUN 23 H Creatinine 1.28 Estim Creat Clear Calc 50.9 Estimated GFR 56 Random Glucose 124 H Lactic Acid Calcium 11.4 H Total Bilirubin Direct Bilirubin AST ALT Alkaline Phosphatase Ammonia Total Protein Albumin 25-OH Vitamin D Total PTH Intact 140.2 H Urine Color Urine Appearance Urine pH Ur Specific [place] Urine Protein Urine Glucose (UA) Urine Ketones Urine Blood Urine Nitrite Ur Leukocyte Esterase Urine RBC Urine WBC Ur Squamous Epith Cells Urine Bacteria Hyaline Casts U Random Total Protein Ur Random Sodium Urine Creatinine Nasal Screen MRSA (PCR) Nasal S. aureus Screen Nasal MRSA/S.aureus Interp Urine Opiates Screen Ur Buprenorphine Scrn Ur Oxycodone Screen Urine Methadone Screen Urine Fentanyl Screen Ur Barbiturates Screen Ur Phencyclidine Scrn Ur Amphetamines Screen U Benzodiazepines Scrn [place] Urine Cocaine Screen U Marijuana (THC) Screen Procedures Date of Service Date of Service: 06/18/24 Assessment & Plan Assessment and plan (1) Altered mental status: Status: Acute (2) VALENCIA (acute kidney injury): Status: Acute (3) Hypernatremia: Status: Acute (4) [place] toxicity: Status: Acute Plan VALENCIA likely secondary to lithium toxicity hypernatremia, hypercalcemia renal function is improving as lithium level normalizes recommend continuing to hold lithium and monitor levels, reassuring that levels are normalized. patient appears hypovolemic, recommend continuing D5W to 150mL/hr elevated calcium and PTH levels likely due to primary hyperparathyroidism. Recommend continuing IV hydration and add cinacalcet 30mg PO daily. recommend following intake and output closely, in addition to blood pressures avoid nephrotoxic substances/medications hold calcium carbonate due to elevated calcium levels Discussed with Dr Shields Time Spent With Patient Time: Total time managing care of this patient today ____ minutes. Progress Note: Quality Stroke Does the patient have a stroke diagnosis?: No
--- NOTE | 2024-06-18 13:11 | PM.CNCAR ---
History of Present Illness History of Present Illness Date of Service: 06/18/24 Chief complaint: AMS Narrative: [age] year gentleman with background history of CLL, hypertension, schizoaffective disorder, alcoholic liver disease, major depression, BPH, COPD, hypothyroidism, GERD who is admitted with lithium toxicity and metabolic encephalopathy. He also had kidney injury.. We have been asked to see him for AFib with RVR. The patient is very agitated and unable to give any meaningful history. He is in AFib with RVR on telemetry but appears to be quite agitated too. [facility] Past Medical History Medical History Hypercalcemia due to lithium Non-toxic multinodular goiter Vitamin D deficiency 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 Encounter for general adult medical examination with abnormal findings Alcoholic liver disease Schizoaffective disorder Depression, major, recurrent (Unknown) Thrombocytosis Obesity Tobacco abuse BPH (benign prostatic hyperplasia) COPD (chronic obstructive pulmonary disease) Lipid disorder Chronic GERD Hypothyroidism Family History Family History Father HTN (hypertension) CVD (cardiovascular disease) Sister AIDS Maternal Grandfather Unknown family medical history Maternal Grandmother Unknown family medical history Paternal Grandfather Unknown family medical history Paternal Grandmother Unknown family medical history Sister No problems noted. Sister No problems noted. Sister No problems noted. Surgical History Surgical History History of surgery History of hernia repair Social History Social History Household Members: None Housing: Unknown / Unable to assess Are you a primary behavioral health care manager to a significant other at home: No Do you presently have visiting nurse or other home services: Yes Alcohol intake: former Patient Tobacco Use Status: Tobacco use Unknown Tobacco use type: Cigar Cigarette Packs Per Day: 1 e-Cigarette/Vaping Use: Never Used Substance Use Type: Marijuana Advance Directives Date on File: 08/16/22 service: No Current occupational status: disabled Cognitive needs: No Hearing needs: No Vision needs: No Meds Allergies Allergy/AdvReac Type Severity Reaction Status Date / Time atorvastatin [From LIPITOR] Allergy Unknown HIGH LFTS Verified 06/16/24 18:47 Active Medications: Current Medications Acetaminophen (Acetaminophen 325 Mg Tablet) 650 mg PO Q6H PRN PRN Reason: Pain, Mild (Pain Scale 1-3), fever or headache Amlodipine Besylate (Amlodipine Besylate 5 Mg Tablet) 5 mg PO BEDTIME [facility]; Protocol Last Admin: 06/17/24 20:43 Dose: Not Given Benztropine Mesylate (Benztropine Mesylate 1 Mg Tablet) 1 mg PO DAILY [facility] Last Admin: 06/18/24 11:11 Dose: Not Given Calcitonin [place] (Calcitonin,[place],Synth Nasal 3.7 Ml Bottle) 1 spray NOSTRILALT DAILY [facility] Ezetimibe (Ezetimibe 10 Mg Tablet) 10 mg PO DAILY [facility] Last Admin: 06/18/24 11:11 Dose: Not Given Enoxaparin Sodium (Enoxaparin Sodium 60 Mg/0.6 Ml Syringe) 60 mg 1 mg/kg (60 mg) SUBCUT Q12H [facility] Last Admin: 06/18/24 03:50 Dose: 60 mg Ferrous Sulfate (Ferrous Sulfate 324 Mg Tablet.Dr) 324 mg PO DAILY [facility] Last Admin: 06/18/24 11:11 Dose: Not Given Piperacillin Sod/Tazobactam (Sod 4.5 gm/ Sodium Chloride) 100 mls @ 200 mls/hr IV Q6H [facility] Last Infusion: 06/18/24 11:56 Dose: Infused Vancomycin HCl 1,250 mg/ (Sodium Chloride) 250 mls @ 166.667 mls/hr IV Q24H [facility] Dextrose (D5w) 1,000 mls @ 150 mls/hr IVCONT .Q6H40M [facility] Last Admin: 06/18/24 11:10 Dose: 100 mls/hr Levothyroxine Sodium (Levothyroxine Sodium 112 Mcg Tablet) 112 mcg PO DAILY@0600 [facility] Last Admin: 06/18/24 06:09 Dose: Not Given Magnesium Hydroxide (Milk Of Magnesia 30 Ml Oral.Susp) 30 ml PO DAILY PRN PRN Reason: Constipation Melatonin (Melatonin 3 Mg Tablet) 6 mg PO BEDTIME PRN PRN Reason: Insomnia Multivitamins/Vitamin C (Multivitamin Tablet) 1 tab PO DAILY [facility] Last Admin: 06/18/24 11:11 Dose: Not Given Naltrexone HCl (Naltrexone Hcl 50 Mg Tablet) 50 mg PO DAILY [facility] Last Admin: 06/18/24 11:12 Dose: Not Given Non-Formulary Medication (Dutasteride) 0.5 mg PO BEDTIME [facility] Non-Formulary Medication (Fluticasone Propionate) 2 puff INHALE BID [facility] Non-Formulary Medication (Risperidone Microspheres) 50 mg IM Q14D [facility] Omeprazole (Omeprazole 20 Mg Capsule.Dr) 20 mg PO DAILY@0630 [facility] Last Admin: 06/18/24 06:09 Dose: Not Given Ondansetron HCl (Ondansetron Hcl 4 Mg/2 Ml Vial) 4 mg IVPUSH Q8H PRN PRN Reason: Nausea and Vomiting Paroxetine HCl (Paroxetine Hcl 40 Mg Tablet) 40 mg PO BEDTIME [facility] Last Admin: 06/17/24 20:44 Dose: Not Given Pharmacy Consult (Consult Rx Vancomycin Dosing) 1 each MISCELLANE DAILY PRN PRN Reason: Consult order Sodium Chloride (0.9 % Sodium Chloride Flush 3 Ml Syringe) 3 ml IVFLUSH QSHIFT [facility] Last Admin: 06/18/24 11:10 Dose: 3 ml Tamsulosin HCl (Tamsulosin Hcl 0.4 Mg Capsule) 0.8 mg PO BEDTIME [facility] Last Admin: 06/17/24 20:44 Dose: Not Given Home Medications ?Medication ?Instructions ?Recorded ?Confirmed ?Last Taken ?Type paroxetine HCl 40 mg tablet (Paxil) 40 mg PO BEDTIME 07/15/20 06/17/24 Unknown History risperidone microspheres 50 mg/2 50 mg IM Q2W 07/15/20 06/17/24 Unknown History mL intramuscular susp,ext release benztropine 1 mg tablet 1 mg PO DAILY 03/17/21 06/17/24 Unknown History lithium carbonate 300 mg capsule 300 mg PO BID 12/14/21 06/17/24 Unknown History amlodipine 5 mg tablet 5 mg PO BEDTIME 06/17/24 06/17/24 Unknown History dutasteride 0.5 mg capsule 0.5 mg PO BEDTIME 06/17/24 06/17/24 Unknown History ferrous sulfate 325 mg (65 mg 325 mg PO DAILY 06/17/24 06/17/24 Unknown History iron) tablet (Iron (ferrous sulfate)) fluticasone propionate 44 2 puff inhalation BID 06/17/24 06/17/24 Unknown History mcg/actuation HFA aerosol inhaler levothyroxine 112 mcg tablet 112 mcg PO DAILY@0600 06/17/24 06/17/24 Unknown History naltrexone 50 mg tablet 50 mg PO DAILY 06/17/24 06/17/24 Unknown History omeprazole 20 mg capsule,delayed 20 mg PO DAILY@0630 06/17/24 06/17/24 Unknown History release tamsulosin 0.4 mg capsule (Flomax) 0.8 mg PO BEDTIME 06/17/24 06/17/24 Unknown History Physical Exam Vital Signs: Vital Signs: Last Vital Signs Temp 97.3 F 06/18/24 11:37 Pulse 110 H 06/18/24 11:37 Resp 20 06/18/24 11:37 BP 134/74 06/18/24 11:37 Pulse Ox 95 06/18/24 11:37 O2 Del Method Nasal Cannula 06/18/24 11:37 O2 Flow Rate 2 06/18/24 11:37 BMI result Body Mass Index 19.8 GENERAL APPEARANCE: Agitated. Confused. NECK: no carotid bruit, no jugular venous distention. HEART: no murmurs, irregular rate and rhythm. Tachycardic. LUNGS: clear to auscultation bilaterally. ABDOMEN: soft, nontender. EXTREMITIES: no edema. PERIPHERAL PULSES: equal. NEUROLOGIC: Agitated and confused. Objective Labs and Meds 06/18/24 16:43 06/18/24 16:43 Lab results: Laboratory Results - last 24 hr 06/17/24 06/17/24 06/17/24 13:45 13:52 14:37 WBC RBC Hgb Hct MCV MCH MCHC RDW Plt Count MPV Immature Gran % (Auto) Neut % (Auto) Lymph % (Auto) [place] % (Auto) Eos % (Auto) Baso % (Auto) Lymph # (Auto) [place] # (Auto) Eos # (Auto) Baso # (Auto) Abs Immat Gran (auto) Absolute Neuts (auto) Absolute Nucleated RBC Nucleated RBC % (auto) Smear Tech's Comments VBG pH 7.33 VBG pCO2 37 VBG pO2 49 VBG HCO3 20 L VBG O2 Saturation 81.0 VBG Base Excess -5.1 Sodium Potassium Chloride Carbon Dioxide Anion Gap BUN Creatinine Estim Creat Clear Calc Estimated GFR Random Glucose Lactic Acid Calcium Total Bilirubin Direct Bilirubin AST ALT Alkaline Phosphatase Ammonia 16 Total Protein Albumin 25-OH Vitamin D Total PTH Intact Urine Color Yellow Urine Appearance Clear Urine pH 6.0 Ur Specific [place] 1.010 Urine Protein 100 (2+) H Urine Glucose (UA) Negative Urine Ketones Trace Urine Blood Trace H Urine Nitrite Negative Ur Leukocyte Esterase Trace H Urine RBC 3-5 H Urine WBC 0-5 Ur Squamous Epith Cells 0-2 Urine Bacteria None Seen Hyaline Casts 0-2 U Random Total Protein 81 H Ur Random Sodium 25.0 Urine Creatinine 49.61 Nasal Screen MRSA (PCR) Nasal S. aureus Screen Nasal MRSA/S.aureus Interp Urine Opiates Screen Not Detected Ur Buprenorphine Scrn Not Detected Ur Oxycodone Screen Not Detected Urine Methadone Screen Not Detected Urine Fentanyl Screen Not Detected Ur Barbiturates Screen Not Detected Ur Phencyclidine Scrn Not Detected Ur Amphetamines Screen Not Detected U Benzodiazepines Scrn Not Detected [place] Urine Cocaine Screen Not Detected U Marijuana (THC) Screen POSITIVE H 06/17/24 06/17/24 06/18/24 15:02 18:06 06:25 WBC 20.5 H RBC 5.08 Hgb 15.3 Hct 46.5 MCV 91.5 MCH 30.1 MCHC 32.9 RDW 14.4 Plt Count 234 MPV 9.8 Immature Gran % (Auto) 0.4 Neut % (Auto) 37.1 L Lymph % (Auto) 58.2 H [place] % (Auto) 4.0 Eos % (Auto) 0.2 Baso % (Auto) 0.1 Lymph # (Auto) 11.9 H [place] # (Auto) 0.8 Eos # (Auto) 0.0 Baso # (Auto) 0.0 Abs Immat Gran (auto) 0.09 H Absolute Neuts (auto) 7.6 Absolute Nucleated RBC 0.000 Nucleated RBC % (auto) 0.0 Smear Tech's Comments VERIFIED VBG pH VBG pCO2 VBG pO2 VBG HCO3 VBG O2 Saturation VBG Base Excess Sodium 155 H Potassium 3.8 Chloride 127 H Carbon Dioxide 19 L Anion Gap 13 BUN 24 H Creatinine 1.33 Estim Creat Clear Calc 49.0 Estimated GFR 54 Random Glucose 121 H Lactic Acid 1.2 Calcium 11.1 H Total Bilirubin 1.5 H Direct Bilirubin 0.9 H AST 17 ALT 12 Alkaline Phosphatase 104 Ammonia Total Protein 6.7 Albumin 3.9 25-OH Vitamin D Total 45.7 PTH Intact Urine Color Urine Appearance Urine pH Ur Specific [place] Urine Protein Urine Glucose (UA) Urine Ketones Urine Blood Urine Nitrite Ur Leukocyte Esterase Urine RBC Urine WBC Ur Squamous Epith Cells Urine Bacteria Hyaline Casts U Random Total Protein Ur Random Sodium Urine Creatinine Nasal Screen MRSA (PCR) POSITIVE A Nasal S. aureus Screen POSITIVE A Nasal MRSA/S.aureus Interp SEE NOTE Urine Opiates Screen Ur Buprenorphine Scrn Ur Oxycodone Screen Urine Methadone Screen Urine Fentanyl Screen Ur Barbiturates Screen Ur Phencyclidine Scrn Ur Amphetamines Screen U Benzodiazepines Scrn [place] 1.54 H* 1.12 Urine Cocaine Screen U Marijuana (THC) Screen 06/18/24 10:27 WBC RBC Hgb Hct MCV MCH MCHC RDW Plt Count MPV Immature Gran % (Auto) Neut % (Auto) Lymph % (Auto) [place] % (Auto) Eos % (Auto) Baso % (Auto) Lymph # (Auto) [place] # (Auto) Eos # (Auto) Baso # (Auto) Abs Immat Gran (auto) Absolute Neuts (auto) Absolute Nucleated RBC Nucleated RBC % (auto) Smear Tech's Comments VBG pH VBG pCO2 VBG pO2 VBG HCO3 VBG O2 Saturation VBG Base Excess Sodium 156 H Potassium 3.7 Chloride 129 H Carbon Dioxide 15 L Anion Gap 16 BUN 23 H Creatinine 1.28 Estim Creat Clear Calc 50.9 Estimated GFR 56 Random Glucose 124 H Lactic Acid Calcium 11.4 H Total Bilirubin Direct Bilirubin AST ALT Alkaline Phosphatase Ammonia Total Protein Albumin 25-OH Vitamin D Total PTH Intact 140.2 H Urine Color Urine Appearance Urine pH Ur Specific [place] Urine Protein Urine Glucose (UA) Urine Ketones Urine Blood Urine Nitrite Ur Leukocyte Esterase Urine RBC Urine WBC Ur Squamous Epith Cells Urine Bacteria Hyaline Casts U Random Total Protein Ur Random Sodium Urine Creatinine Nasal Screen MRSA (PCR) Nasal S. aureus Screen Nasal MRSA/S.aureus Interp Urine Opiates Screen Ur Buprenorphine Scrn Ur Oxycodone Screen Urine Methadone Screen Urine Fentanyl Screen Ur Barbiturates Screen Ur Phencyclidine Scrn Ur Amphetamines Screen U Benzodiazepines Scrn [place] Urine Cocaine Screen U Marijuana (THC) Screen Imaging Radiologist's impression: Impressions Chest X-Ray 06/17/24 13:00 IMPRESSION: Left lower lobe pneumonia. Small left pleural effusion. Electronically signed by: Nobel Sheffield MD 06/17/2024 01:52 PM EDT KUB X-Ray 06/17/24 17:30 IMPRESSION: No metallic foreign bodies are seen. Electronically signed by: Kevin Cardona MD 06/17/2024 06:31 PM EDT RP Brain MRI 06/17/24 19:49 IMPRESSION: No acute intracranial abnormality. Electronically signed by: Sully Booker MD 06/17/2024 08:23 PM EDT RP Assessment and Plan (1) Hypertension, essential: Status: Acute (2) Atrial fibrillation: Status: Acute Plan 63-year-old gentleman presenting for toxic metabolic encephalopathy due to lithium toxicity and atrial fibrillation with rapid ventricular response. Unable to give any history. Clinically he was agitated at the time of interview and was in AFib with RVR clearly agitation could be the cause for AFib with RVR. Strategy will be rate control for now. Chads Vasc is 2. Ideally should be anticoagulated. We will gauge it based on how well he recovers and whether he will be stable to walk around or not. We will follow along with you. Thank you for allowing me to participate in the care of your patient. Please feel free to contact me if you have any questions. Procedures Date of Service Date of Service: 06/18/24
[2024-06-18 13:15] LABS: Venous Blood Gas Refer to POC result
[2024-06-18 13:15] LABS: VBG Base Excess -4.7 mmol/L; VBG HCO3 19 mmol/L (22-26); VBG pCO2 32 mmHg; VBG pH 7.37 (7.32-7.43); VBG pO2 42 mmHg
[2024-06-18] MEDS: Calcitonin,Salmon,Synth Nasal 3.7 ML BOTTLE 1 SPRAY NOSTRILALT (14:04)
--- NOTE | 2024-06-18 15:25 | MHC.SLORD ---
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 Oral stimulation was attempted with ice cube and lemon czech ice. Pt reacted but spurred his head away not processing anything presented to him. Yellow/brown placque observed on his tongue. RN/MD notified.
--- NOTE | 2024-06-18 15:58 | HO.PM.IMPN ---
Subjective Subjective Date of Service: 06/18/24 Interval History: follow-up for lithium toxicity, acute kidney injury Review of Systems open eyes ,moving arms slightly this afternoon -later got more lethargic hr is 90-100 mostly Physical Exam Vital Signs: Vital Signs: Last Vital Signs Temp 97.0 F 06/18/24 15:33 Pulse 92 06/18/24 15:33 Resp 21 H 06/18/24 15:33 BP 119/65 06/18/24 15:33 Pulse Ox 95 06/18/24 15:33 O2 Del Method Nasal Cannula 06/18/24 15:33 O2 Flow Rate 2.5 06/18/24 15:33 BMI result Body Mass Index 19.8 Appearance: more lethargic, reactive to strong tactile stimuli puplil reactive sluggish cvs: rrr, [id number]. res: clear to auscultation ,no rhonchii or wheezing abd: no rebound or guarding ,nt, bs present. ext pulses present , no cyanosis. neuro: moves ext intermittent Objective Data Active Medications Acetaminophen (Acetaminophen 325 Mg Tablet) 650 mg PO Q6H PRN PRN Reason: Pain, Mild (Pain Scale 1-3), fever or headache Amlodipine Besylate (Amlodipine Besylate 5 Mg Tablet) 5 mg PO BEDTIME [facility]; Protocol Last Admin: 06/17/24 20:43 Dose: Not Given Documented By: MAICOL Non-Admin Reason: Patient Condition Contraindication Benztropine Mesylate (Benztropine Mesylate 1 Mg Tablet) 1 mg PO DAILY [facility] Last Admin: 06/18/24 11:11 Dose: Not Given Documented By: HIRAL Non-Admin Reason: NPO Calcitonin [place] (Calcitonin,[place],Synth Nasal 3.7 Ml Bottle) 1 spray NOSTRILALT DAILY [facility] Last Admin: 06/18/24 14:04 Dose: 1 spray Documented By: HIRAL Ezetimibe (Ezetimibe 10 Mg Tablet) 10 mg PO DAILY [facility] Last Admin: 06/18/24 11:11 Dose: Not Given Documented By: HIRAL Non-Admin Reason: NPO Enoxaparin Sodium (Enoxaparin Sodium 60 Mg/0.6 Ml Syringe) 60 mg 1 mg/kg (60 mg) SUBCUT Q12H [facility] Last Admin: 06/18/24 14:04 Dose: 60 mg Documented By: HIRAL Ferrous Sulfate (Ferrous Sulfate 324 Mg Tablet.) 324 mg PO DAILY [facility] Last Admin: 06/18/24 11:11 Dose: Not Given Documented By: HIRAL Non-Admin Reason: NPO Piperacillin Sod/Tazobactam (Sod 4.5 gm/ Sodium Chloride) 100 mls @ 200 mls/hr IV Q6H [facility] Last Admin: 06/18/24 14:04 Dose: Not Given Documented By: HIRAL Non-Admin Reason: last dose given late, off the unit for eeg Vancomycin HCl 1,250 mg/ (Sodium Chloride) 250 mls @ 166.667 mls/hr IV Q24H [facility] Dextrose (D5w) 1,000 mls @ 150 mls/hr IVCONT .Q6H40M [facility] Last Admin: 06/18/24 11:10 Dose: 100 mls/hr Documented By: HIRAL Levothyroxine Sodium (Levothyroxine Sodium 112 Mcg Tablet) 112 mcg PO DAILY@0600 [facility] Last Admin: 06/18/24 06:09 Dose: Not Given Documented By: ROSMERY Non-Admin Reason: NPO Magnesium Hydroxide (Milk Of Magnesia 30 Ml Oral.Susp) 30 ml PO DAILY PRN PRN Reason: Constipation Melatonin (Melatonin 3 Mg Tablet) 6 mg PO BEDTIME PRN PRN Reason: Insomnia Multivitamins/Vitamin C (Multivitamin Tablet) 1 tab PO DAILY [facility] Last Admin: 06/18/24 11:11 Dose: Not Given Documented By: HIRAL Non-Admin Reason: NPO Naltrexone HCl (Naltrexone Hcl 50 Mg Tablet) 50 mg PO DAILY [facility] Last Admin: 06/18/24 11:12 Dose: Not Given Documented By: HIRAL Non-Admin Reason: NPO Non-Formulary Medication (Dutasteride) 0.5 mg PO BEDTIME [facility] Non-Formulary Medication (Fluticasone Propionate) 2 puff INHALE BID [facility] Non-Formulary Medication (Risperidone Microspheres) 50 mg IM Q14D [facility] Omeprazole (Omeprazole 20 Mg Capsule.) 20 mg PO DAILY@0630 [facility] Last Admin: 06/18/24 06:09 Dose: Not Given Documented By: ROSMERY Non-Admin Reason: NPO Ondansetron HCl (Ondansetron Hcl 4 Mg/2 Ml Vial) 4 mg IVPUSH Q8H PRN PRN Reason: Nausea and Vomiting Paroxetine HCl (Paroxetine Hcl 40 Mg Tablet) 40 mg PO BEDTIME [facility] Last Admin: 06/17/24 20:44 Dose: Not Given Documented By: MAICOL Non-Admin Reason: Patient Condition Contraindication Pharmacy Consult (Consult Rx Vancomycin Dosing) 1 each MISCELLANE DAILY PRN PRN Reason: Consult order Sodium Chloride (0.9 % Sodium Chloride Flush 3 Ml Syringe) 3 ml IVFLUSH QSHIFT [facility] Last Admin: 06/18/24 11:10 Dose: 3 ml Documented By: HIRAL Tamsulosin HCl (Tamsulosin Hcl 0.4 Mg Capsule) 0.8 mg PO BEDTIME [facility] Last Admin: 06/17/24 20:44 Dose: Not Given Documented By: MAICOL Non-Admin Reason: Patient Condition Contraindication Labs 06/18/24 16:43 06/18/24 16:43 Labs: Laboratory Results - last 24 hr 06/17/24 06/18/24 06/18/24 18:06 06:25 10:27 MCV 91.5 MCH 30.1 MCHC 32.9 RDW 14.4 Plt Count 234 MPV 9.8 Immature Gran % (Auto) 0.4 Neut % (Auto) 37.1 L Lymph % (Auto) 58.2 H [place] % (Auto) 4.0 Eos % (Auto) 0.2 Baso % (Auto) 0.1 Lymph # (Auto) 11.9 H [place] # (Auto) 0.8 Eos # (Auto) 0.0 Baso # (Auto) 0.0 Abs Immat Gran (auto) 0.09 H Absolute Neuts (auto) 7.6 Absolute Nucleated RBC 0.000 Nucleated RBC % (auto) 0.0 Smear Tech's Comments VERIFIED VBG pH VBG pCO2 VBG pO2 VBG HCO3 VBG O2 Saturation VBG Base Excess Anion Gap 13 16 Estim Creat Clear Calc 49.0 50.9 Estimated GFR 54 56 Random Glucose 121 H 124 H Calcium 11.1 H 11.4 H Total Bilirubin 1.5 H Direct Bilirubin 0.9 H AST 17 ALT 12 Alkaline Phosphatase 104 Total Protein 6.7 Albumin 3.9 25-OH Vitamin D Total 45.7 PTH Intact 140.2 H Nasal Screen MRSA (PCR) POSITIVE A Nasal S. aureus Screen POSITIVE A Nasal MRSA/S.aureus Interp SEE NOTE [place] 1.12 06/18/24 13:11 MCV MCH MCHC RDW Plt Count MPV Immature Gran % (Auto) Neut % (Auto) Lymph % (Auto) Noble % (Auto) Eos % (Auto) Baso % (Auto) Lymph # (Auto) Noble # (Auto) Eos # (Auto) Baso # (Auto) Abs Immat Gran (auto) Absolute Neuts (auto) Absolute Nucleated RBC Nucleated RBC % (auto) Smear Tech's Comments VBG pH 7.37 VBG pCO2 32 VBG pO2 42 VBG HCO3 19 L VBG O2 Saturation 75.0 VBG Base Excess -4.7 Anion Gap Estim Creat Clear Calc Estimated GFR Random Glucose Calcium Total Bilirubin Direct Bilirubin AST ALT Alkaline Phosphatase Total Protein Albumin 25-OH Vitamin D Total PTH Intact Nasal Screen MRSA (PCR) Nasal S. aureus Screen Nasal MRSA/S.aureus Interp [place] Assessment and Plan (1) Hypernatremia: Status: Acute (2) VALENCIA (acute kidney injury): Status: Acute Assessment and Plan: 63-year-old male with pertinent history of CLL, hypertension, schizoaffective disorder, alcoholic liver disease, major depressive disorder, BPH, COPD not on home oxygen, hypothyroidism, mixed hyperlipidemia, gastroesophageal reflux disease admitted for acute metabolic encephalopathy as well as lithium toxic [place] and VALENCIA acute metabolic encephalopathy- ?toxic component-initially thought to be related to lithium toxicity however lithium level trending down to 1.68 and patient remains responsive only to painful stimulus only ?r/t infection. New LLL infiltrate on CXR though no sepsis/fevers/cough noted ua neg vbg and abg -ph seems fine , No acidosis/hypercapnia ammonia wnl- yesterday and today TSH slightly low at 0.23 but normal free T4 no uremia head CT . mri (06/16/06/17) negative ) will check another ct head eeg-possible partial seizures hypernatremia in setting of lithum toxicity, now lithum levels normal 1.12 sodium trending up :138(06/17) , today 155 -156-159(06/18) plan changed fluids d5w 150 ml/hr this morning moniter neurochecks ct head ,cxr pending-grossly seems similar to previous imaging studies(06/17),official report pending moniter bmp New onset atrial fibrillation with RVR hr acceptable ?in setting of lihtium toxicity EKG shows new onset afib with rvr echo therapeutic Lovenox monitor on tele,cardiology consult Acute LLL pneumonia -leukocytosis trending up, chronic due to CLL. Tachycardia due to new afib. Afebrile. No sepsis -CXR shows LLL pneumonia. ?aspiration given encephalopathy/unresponsiveness though is maintaining airway -IV zosyn, vanco -sputum culture, strep pneumo antigen, Legionella antigen, MRSA nasal swab pending acute lithium toxicity -on arrival, lithium level 2.05, this morning 1.12 -hold lithium, monitor levels closely -psychiatry consult acute kidney injury -likely due to above cr flactuating 1.44 -avoid nephrotoxins consider [place] catheter npehrology following -rec to continue d5w as above , moniter bmp q4hr Acute urinary retention has car[place] catheter chronic leukocytosis due to CLL -not related to infection/sepsis hypothyroidism tsh boderline low , free t4 -normal -continue levothyroxine Schizoaffective disorder/mood disorder -hold lithium due to above -psychiatry consult pending hyperlipidemia -continue Zetia GERD -PPI COPD -no acute exacerbation. Continue home inhalers hypertension -continue amlodipine once tolerating p.o. DVT prophylaxis: Lovenox Full code Patient requires ongoing inpatient stay due to acute metabolic encephalopathy, VALENCIA, lithium toxicity-toxic metabolic encephalopathy,? Seizure, hyponatremia: Patient need renal function electrolyte monitoring, neuro checks, closely follow monitor respiratory and cardiac status. d/w icu also -currently recomended to continue current management. 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 As per the corsetier patient was not in the contact with sister for many years. Assessment and plan coordination time spent 70 minute. Quality Stroke Does the patient have a stroke diagnosis?: No VTE Prior VTE?: No VTE Risk Level:: Medical - moderate - high VTE Device Contraindication: Treatment Not Indicated VTE Drug Contraindication: N/A - Med Ordered
[2024-06-18 16:26] LABS: Glucose, Whole Blood 137 mg/dL (60-115)
[2024-06-18 16:51] LABS: ABG Base Excess -5.1 mmol/L; ABG HCO3 19 mmol/L (22-26); ABG pCO2 32 mmHg (32-45); ABG pH 7.37 (7.35-7.45); ABG pO2 63 mmHg (83-108)
[2024-06-18 16:54] LABS: Hemoglobin 15.1 g/dl (14.0-18.0); Mean Corpuscular HGB Conc 32.8 g/dl (31.0-36.0); Mean Corpuscular Hemoglobin 30.4 pg (27.0-33.0); Mean Corpuscular Volume 92.6 fL (80.0-98.0); Mean Platelet Volume 9.7 fL (9.4-12.4); Platelet Count 228 X10*3/uL (160-400); Red Blood Count 4.97 X10*6/uL (4.60-5.80); Red Cell Distribution Width 14.7 % (11.0-16.0); White Blood Count 21.9 X10*3/uL (4.8-10.8)
[2024-06-18 16:57] LABS: Ammonia 23 umol/L (13-55)
[2024-06-18 17:09] LABS: Alanine Aminotransferase 12 U/L (0-40); Albumin Level 3.9 g/dL (3.5-5.0); Alkaline Phosphatase 101 U/L (39-117); Anion Gap 13 (12-20); Aspartate Amino Transferase 19 U/L (5-37); Bilirubin Direct 0.7 mg/dL (0.0-0.5); Bilirubin Total 1.3 mg/dL (0.0-1.0); Blood Urea Nitrogen 24 mg/dL (9-16); Calcium 11.4 mg/dL (8.4-10.2); Carbon Dioxide 21 mmol/L (22-29); Chloride 129 mmol/L (96-108); Creatinine Clr Calc Pharmacy 45.2; Estimated Glomerular Filt Rate 49; Glucose Random 155 mg/dL (60-115); Potassium 3.5 mmol/L (3.3-5.1); Sodium 159 mmol/L (135-145); Total Protein 6.7 g/dL (6.5-8.0)
[2024-06-18] MEDS: vancomycin HCL 1,250 MG in 0.9 % Sodium Chloride 250 ML 166.67 MG IV (17:40)
[2024-06-18] MEDS: levETIRAcetam in NaCl (iso-os) 500 MG/100 ML PIGGYBACK 400 MG IV (17:42)
[2024-06-18] MEDS: Pantoprazole Sodium 40 MG/10 ML VIAL IVPUSH (18:40)
--- NOTE | 2024-06-18 19:28 | W.PM.CCCN ---
History of Present Illness Data of Consult Service Date: 06/18/24 Requesting physician: Freddy Jaime Primary Care Provider: Unknown Physician HPI Reason for consult: AMS The patient is a 63-year-old male with a past medical history of CLL, hypertension, schizoaffective disorder, alcoholic liver disease, major depressive disorder, BPH, COPD, thyroidism, mixed hyperlipidemia, GERD, who presented to the emergency department on 06/16/2004 due to altered mental status.? He was admitted to Hospital Medicine for acute metabolic encephalopathy due to lithium toxicity, lithium level was found to be 2.05, as well as VALENCIA.? Throughout the day,? patient continued to be altered, ? minimally responsive? to verbal stimuli,? despite lithium level trending down to 1.12.? He is able to protect his airway,? blood gas stable.? His sodium trending up from 155 to 159, calcium also trending up from 11.1 to? 11.4.? VALENCIA is worsening,? and patient having significant increased urine output.? His parathyroid level was also noted to be 140.2.? ?Head CT:? with no acute findings ?Patient will be transferred to ICU for? 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 Encounter for general adult medical examination with abnormal findings Alcoholic liver disease Schizoaffective disorder Depression, major, recurrent (Unknown) Thrombocytosis Obesity Tobacco abuse BPH (benign prostatic hyperplasia) COPD (chronic obstructive pulmonary disease) Lipid disorder Chronic GERD Hypothyroidism Family History Family History Father HTN (hypertension) CVD (cardiovascular disease) Sister AIDS Maternal Grandfather Unknown family medical history Maternal Grandmother Unknown family medical history Paternal Grandfather Unknown family medical history Paternal Grandmother Unknown family medical history Sister No problems noted. Sister No problems noted. Sister No problems noted. Surgical History Surgical History History of surgery History of hernia repair Social History Social History Household Members: None Housing: Unknown / Unable to assess Are you a primary transitional care liaison to a significant other at home: No Do you presently have visiting nurse or other home services: Yes Alcohol intake: former Comment: restraints Patient Tobacco Use Status: Tobacco use Unknown Tobacco use type: Cigar Cigarette Packs Per Day: 1 e-Cigarette/Vaping Use: Never Used Substance Use Type: Marijuana Advance Directives Date on File: 08/16/22 service: No Current occupational status: disabled Cognitive needs: No Hearing needs: No Vision needs: No Meds Allergies Allergy/AdvReac Type Severity Reaction Status Date / Time atorvastatin [From LIPITOR] Allergy Unknown HIGH LFTS Verified 06/16/24 18:47 Active Medications: Current Medications Acetaminophen (Acetaminophen 325 Mg Tablet) 650 mg PO Q6H PRN PRN Reason: Pain, Mild (Pain Scale 1-3), fever or headache Amlodipine Besylate (Amlodipine Besylate 5 Mg Tablet) 5 mg PO BEDTIME [facility]; Protocol Last Admin: 06/17/24 20:43 Dose: Not Given Benztropine Mesylate (Benztropine Mesylate 1 Mg Tablet) 1 mg PO DAILY [facility] Last Admin: 06/18/24 11:11 Dose: Not Given Calcitonin [place] (Calcitonin,[place],Synth Nasal 3.7 Ml Bottle) 1 spray NOSTRILALT DAILY [facility] Last Admin: 06/18/24 14:04 Dose: 1 spray Ezetimibe (Ezetimibe 10 Mg Tablet) 10 mg PO DAILY [facility] Last Admin: 06/18/24 11:11 Dose: Not Given Enoxaparin Sodium (Enoxaparin Sodium 60 Mg/0.6 Ml Syringe) 60 mg 1 mg/kg (60 mg) SUBCUT Q12H [facility] Last Admin: 06/18/24 14:04 Dose: 60 mg Ferrous Sulfate (Ferrous Sulfate 324 Mg Tablet.Dr) 324 mg PO DAILY [facility] Last Admin: 06/18/24 11:11 Dose: Not Given Piperacillin Sod/Tazobactam (Sod 4.5 gm/ Sodium Chloride) 100 mls @ 200 mls/hr IV Q6H [facility] Last Admin: 06/18/24 14:04 Dose: Not Given Vancomycin HCl 1,250 mg/ (Sodium Chloride) 250 mls @ 166.667 mls/hr IV Q24H [facility] Last Infusion: 06/18/24 19:14 Dose: Infused Dextrose (D5w) 1,000 mls @ 300 mls/hr IVCONT .Q3H20M [facility] Last Admin: 06/18/24 17:45 Dose: Not Given Levetiracetam 250 mg/ Sodium (Chloride) 102.5 mls @ 410 mls/hr IV BID [facility] Levothyroxine Sodium (Levothyroxine Sodium 112 Mcg Tablet) 112 mcg PO DAILY@0600 [facility] Last Admin: 06/18/24 06:09 Dose: Not Given Magnesium Hydroxide (Milk Of Magnesia 30 Ml Oral.Susp) 30 ml PO DAILY PRN PRN Reason: Constipation Melatonin (Melatonin 3 Mg Tablet) 6 mg PO BEDTIME PRN PRN Reason: Insomnia Metoprolol Tartrate (Metoprolol Tartrate 25 Mg Tablet) 25 mg PO BID [facility]; Protocol Multivitamins/Vitamin C (Multivitamin Tablet) 1 tab PO DAILY [facility] Last Admin: 06/18/24 11:11 Dose: Not Given Naltrexone HCl (Naltrexone Hcl 50 Mg Tablet) 50 mg PO DAILY [facility] Last Admin: 06/18/24 11:12 Dose: Not Given Non-Formulary Medication (Dutasteride) 0.5 mg PO BEDTIME [facility] Non-Formulary Medication (Fluticasone Propionate) 2 puff INHALE BID [facility] Non-Formulary Medication (Risperidone Microspheres) 50 mg IM Q14D [facility] Ondansetron HCl (Ondansetron Hcl 4 Mg/2 Ml Vial) 4 mg IVPUSH Q8H PRN PRN Reason: Nausea and Vomiting Pantoprazole Sodium (Pantoprazole Sodium 40 Mg/10 Ml Vial) 40 mg IVPUSH DAILY@0630 [facility] Last Admin: 06/18/24 18:40 Dose: 40 mg Paroxetine HCl (Paroxetine Hcl 40 Mg Tablet) 40 mg PO BEDTIME [facility] Last Admin: 06/17/24 20:44 Dose: Not Given Pharmacy Consult (Consult Rx Vancomycin Dosing) 1 each MISCELLANE DAILY PRN PRN Reason: Consult order Sodium Chloride (0.9 % Sodium Chloride Flush 3 Ml Syringe) 3 ml IVFLUSH QSHIFT [facility] Last Admin: 06/18/24 17:42 Dose: Not Given Tamsulosin HCl (Tamsulosin Hcl 0.4 Mg Capsule) 0.8 mg PO BEDTIME [facility] Last Admin: 06/17/24 20:44 Dose: Not Given Home Medications ?Medication ?Instructions ?Recorded ?Confirmed ?Last Taken ?Type paroxetine HCl 40 mg tablet (Paxil) 40 mg PO BEDTIME 07/15/20 06/17/24 Unknown History risperidone microspheres 50 mg/2 50 mg IM Q2W 07/15/20 06/17/24 Unknown History mL intramuscular susp,ext release benztropine 1 mg tablet 1 mg PO DAILY 03/17/21 06/17/24 Unknown History lithium carbonate 300 mg capsule 300 mg PO BID 12/14/21 06/17/24 Unknown History amlodipine 5 mg tablet 5 mg PO BEDTIME 06/17/24 06/17/24 Unknown History dutasteride 0.5 mg capsule 0.5 mg PO BEDTIME 06/17/24 06/17/24 Unknown History ferrous sulfate 325 mg (65 mg 325 mg PO DAILY 06/17/24 06/17/24 Unknown History iron) tablet (Iron (ferrous sulfate)) fluticasone propionate 44 2 puff inhalation BID 06/17/24 06/17/24 Unknown History mcg/actuation HFA aerosol inhaler levothyroxine 112 mcg tablet 112 mcg PO DAILY@59906/17/24 06/17/24 Unknown History naltrexone 50 mg tablet 50 mg PO DAILY 06/17/24 06/17/24 Unknown History omeprazole 20 mg capsule,delayed 20 mg PO DAILY@62906/17/24 06/17/24 Unknown History release tamsulosin 0.4 mg capsule (Flomax) 0.8 mg PO BEDTIME 06/17/24 06/17/24 Unknown History Physical Exam Vital Signs: Vital Signs: Last Vital Signs Temp 96.4 F L 06/18/24 16:20 Pulse 85 06/18/24 16:20 Resp 20 06/18/24 16:20 BP 153/64 H 06/18/24 16:20 Pulse Ox 93 06/18/24 16:20 O2 Del Method Nasal Cannula 06/18/24 16:20 O2 Flow Rate 2 06/18/24 16:20 BMI result Body Mass Index 19.8 ?General: Lethargic,?responds to painful stimuli, able to protect airway ?HEENT:? Head is normocephalic, atraumatic, pupils equal round reactive to light accommodation bilaterally.? Buccal mucosa is very dry, Neck is supple? ?Cardiac: AFib rate control,no murmurs rubs or gallops. ?Pulmonary: ?Diffuse crackles at bases, ?Abdomen:? ?Abdomen soft, non-tender, non-distended. Normal bowel sounds. ?Musculoskeletal:? Moving all 4 extremities randomly. Patient not able to follow commands for strenghth/ sensation test.? ?Neurologic:open eyes to command. No focal deficits noted.Motor strength as above.?? ?Skin: Skin dry, scattered bruises throughout Vascular:? 2+ pulses upper and lower extremities distally.? Results Labs 06/19/24 05:23 06/19/24 05:23 Labs: Short CBC 06/18/24 06/18/24 Range/Units 06:25 16:43 WBC 20.5 H 21.9 H (4.8-10.8) X10*3/uL Hgb 15.3 15.1 (14.0-18.0) g/dl Hct 46.5 46.0 (42.0-52.0) % Plt Count 234 228 (160-400) X10*3/uL BMP 06/18/24 06/18/24 06/18/24 06:25 10:27 16:43 Sodium 155 H 156 H 159 H Potassium 3.8 3.7 3.5 Chloride 127 H 129 H 129 H Carbon Dioxide 19 L 15 L 21 L BUN 24 H 23 H 24 H Creatinine 1.33 1.28 1.44 H Calcium 11.1 H 11.4 H 11.4 H Cardiac Enzymes 06/18/24 Range/Units 10:27 Total Creatine Kinase 74 (38-174) U/L Liver Function 06/18/24 06/18/24 06/18/24 Range/Units 06:25 16:43 16:43 Total Bilirubin 1.5 H 1.3 H Cancelled (0.0-1.0) mg/dL Direct Bilirubin 0.9 H 0.7 H (0.0-0.5) mg/dL AST 17 (5-37) U/L ALT 12 (0-40) U/L Alkaline Phosphatase 104 (39-117) U/L Albumin 3.9 (3.5-5.0) g/dL 06/18/24 06/18/24 06/18/24 Range/Units 16:43 16:43 16:43 Total Bilirubin (0.0-1.0) mg/dL Direct Bilirubin Cancelled (0.0-0.5) mg/dL AST 19 Cancelled (5-37) U/L ALT 12 Cancelled (0-40) U/L Alkaline Phosphatase 101 (39-117) U/L Albumin (3.5-5.0) g/dL 06/18/24 06/18/24 Range/Units 16:43 16:43 Total Bilirubin (0.0-1.0) mg/dL Direct Bilirubin (0.0-0.5) mg/dL AST (5-37) U/L ALT (0-40) U/L Alkaline Phosphatase Cancelled (39-117) U/L Albumin 3.9 Cancelled (3.5-5.0) g/dL Microbiology Microbiology Results: Microbiology 06/17/24 15:03 Blood - Venous Blood Culture - Preliminary No growth after 24 hours. 06/17/24 15:03 Blood - Venous Blood Culture - Preliminary No growth after 24 hours. Assessment and Plan (1) [place] toxicity: Status: Acute (2) Nephrogenic diabetes insipidus: Status: Acute (3) Metabolic encephalopathy: Status: Acute (4) Acute hypoxic respiratory failure: Status: Acute (5) VALENCIA (acute kidney injury): Status: Acute (6) Hypernatremia: Status: Acute (7) Hypercalcemia due to a drug: Status: Acute (8) Atrial fibrillation: Status: Acute (9) Altered mental status: Status: Acute (10) Pneumonia: Status: Acute (11) Schizoaffective disorder: Status: Acute (12) Depression, major, recurrent: Qualifiers: Active/Remission status: in partial remission Qualified Code(s): F33.41 - Major depressive disorder, recurrent, in partial remission Status: Acute (13) Hypotension: Status: Acute Plan 63-year-old male with a past medical history of CLL, hypertension, schizoaffective disorder, alcoholic liver disease, major depressive disorder, BPH, COPD, thyroidism, mixed hyperlipidemia, GERD? now admitted to ICU for lithium toxicity induced nephrogenic diabetes insipidus Plan: Neuro:? ?Metabolic encephalopathy: ? from lithium toxicity/? severe dehydration from nephrogenic diabetes insipidus.? Should improve with correction of sodium. Head CT was negative.? Continue to monitor frequent neuro checks Cardiac:?? ?New onset atrial fibrillation with RVR- ? during the admission and Hospital Medicine patient was noted to have new onset atrial fibrillation with RVR,? now rate controlled.? Cardiology was consulted and agree to continue Lovenox? and initiate Lopressor 25 p.o..? Hypotension: From sedation, lactic is negative at 0.8. No evidence of severe septic shock. Wean off Levophed as tolerated Pulmonary:?? ?Acute hypoxic respiratory failure-? chest x-ray showing left lower lobe pneumonia from aspiration. ? He was started on vanco and Zosyn.? We will continue.? During arrival to the ICU, patient continued to require more supplemental oxygenation, maxed out on high-flow/non-rebreather requiring emergent intubation likely from another aspiration event. Wean off ventilatory support as tolerated Renal:? Barney? induced nephrogenic diabetes insipidus-? initial lithium level was 2.05? now 1.12,? despite lithium levels trending down patient continued to be altered,? but later noted to have increased urine output,? parathyroid level was 140.2, calcium elevated to 11.4, and creatinine trending up to 1.44.? Was started on D5W,? will increase D5W rate. ? Continue to trend chemistries frequently.? ?VALENCIA-? see previous plan ?Acute? hypernatremia:? continue previous plan Endo:? No acute issues.?? GI:?? ?No acute issues Heme/Onc:? No acute issues. ID:? left lower lobe pneumonia likely from aspiration event,? cultures pending.? Continue antibiotics? Psych:? has underlying history of schizoaffective disorder and depression,? lithium is now on hold due to toxicity.? Hospital medicine provider consulted psych.? Consult is pending.? Miscellaneous:? No acute issues. Prophylaxis: ? lovenox? Diet: NG tube in place. Will initiate tube feeding tomorrow as tolerated Critical care: x 90 min of critical care? CODE: ? FULL CODE? Case discussed with attending Dr Gaspar
--- NOTE | 2024-06-18 19:34 | PC.NURSE ---
This nurse took over care of patient around 15:00 this afternoon. At around 16:45 this nurse was called to the bedside of this patient, who was presenting differently than previous in the day- more obtunded presentation than prior per the report of staff at bedside who were better known to the patient. The patient arousable to light pain stimuli, however now less arousable even with partial assessments of gag reflex (via NG tube placement). Dr. Jaime at bedside placing orders, and consults. At later assessments return of previous arousal status- responsive to light pain, continued to be nonverbal and unable to create eye contact.
[2024-06-18 20:04] LABS: Venous Blood Gas Refer to POC result
[2024-06-18 20:05] LABS: VBG Base Excess -4.6 mmol/L; VBG HCO3 17 mmol/L (22-26); VBG pCO2 25 mmHg; VBG pH 7.44 (7.32-7.43); VBG pO2 133 mmHg
[2024-06-18 20:05] LABS: Basophils Absolute Auto 0.1 X10*3/uL (0.0-0.2); Basophils Percent Auto 0.2 % (0-2); Eosinophils Absolute Auto 0.1 X10*3/uL (0.0-0.4); Eosinophils Percent Auto 0.6 % (0-4); Hematocrit 44.9 % (42.0-52.0); Hemoglobin 14.9 g/dl (14.0-18.0); Imm Gran Abs Auto 0.08 X10*3/uL (0.00-0.03); Imm Gran Pct Auto 0.4 % (0.0-0.4); MANUAL DIFF FLAG SCAN; Mean Corpuscular HGB Conc 33.2 g/dl (31.0-36.0); Mean Corpuscular Hemoglobin 30.5 pg (27.0-33.0); Mean Corpuscular Volume 91.8 fL (80.0-98.0); Mean Platelet Volume 9.7 fL (9.4-12.4); Monocytes Absolute Auto 1.1 X10*3/uL (0.1-1.2); Neutrophils Absolute Auto 8.5 x10*3/uL (2.0-8.3); Neutrophils Percent Auto 38.8 % (45-73); Platelet Count 235 X10*3/uL (160-400); Red Blood Count 4.89 X10*6/uL (4.60-5.80); Red Cell Distribution Width 14.6 % (11.0-16.0); SCAN SMEAR FLAG 1; White Blood Count 21.8 X10*3/uL (4.8-10.8)
[2024-06-18 20:11] LABS: ABG Refer to POC result
[2024-06-18 20:12] LABS: Lactic Acid 0.8 mmol/L (0.5-2.0)
[2024-06-18 20:24] LABS: Albumin Level 3.8 g/dL (3.5-5.0); Anion Gap 12 (12-20); Blood Urea Nitrogen 25 mg/dL (9-16); Calcium 11.3 mg/dL (8.4-10.2); Carbon Dioxide 19 mmol/L (22-29); Chloride 131 mmol/L (96-108); Creatinine Clr Calc Pharmacy 51.7; Estimated Glomerular Filt Rate 57; Glucose Random 166 mg/dL (60-115); Magnesium 2.6 mg/dL (1.6-2.6); Phosphorus 2.2 mg/dL (2.7-4.5); Potassium 3.5 mmol/L (3.3-5.1); Sodium 158 mmol/L (135-145)
[2024-06-18] MEDS: Potassium Phosphate/NS 15 MMOL/250 ML PLAST..BAG 62.5 MMOL IV (20:44)
[2024-06-18] MEDS: Dextrose 5 % 1,000 ML 300 ML IVCONT (20:44)
[2024-06-18] MEDS: Metoprolol Tartrate 25 MG TABLET PO (20:45)
[2024-06-18] MEDS: Tamsulosin HCL 0.4 MG CAPSULE 0.8 MG PO (20:45)
[2024-06-18 21:22] LABS: SLIDE REVIEW VERIFIED
[2024-06-18] MEDS: Norepinephrine Bitartrate/D5W 8 MG/250 ML PLAST..BAG 8.11 MG IVCONT (21:45)
[2024-06-18] MEDS: propofoL 200 MG/20 ML VIAL 100 MG IVPUSH (21:45)
[2024-06-18] MEDS: propofoL 1,000 MG/100 ML VIAL 15.57 MG IVCONT (21:50)
--- NOTE | 2024-06-18 22:17 | P.PCNCC_ITS ---
Procedures Date of Service Date of Service: 06/18/24 <Zach Harrington NP - Last Filed: 06/18/24 22:19> 06/19/24 <Gurpreet Gaspar MD - Last Filed: 06/19/24 09:51> Intubation Intubation Comments: Patient with acute respiratory distress, refractory to high flow/ non rebreather, not a good candidate for BIPAP, requiring emergent intubation for hypoxemia. Patient intubated with 7.5 cuffed ET tube under glide scope guidance with visualization of vocal cords, without immediate complications. ET w tube position verified with Chest X RAY. <Zach Harrington NP - Last Filed: 06/18/24 22:19> Consent for Procedure: Emergent-no informed consent obtained <Zach Harrington NP - Last Filed: 06/18/24 22:19> Time out performed: Yes <Zach Harrington NP - Last Filed: 06/18/24 22:19> Sedative: propofol <Zach Harrington NP - Last Filed: 06/18/24 22:19> Mg given: 100 <Zach Harrington NP - Last Filed: 06/18/24 22:19> Laryngoscope: fiber optic video scope <Zach Harrington NP - Last Filed: 06/18/24 22:19> ET tube size: 7.5 <Zach Harrington NP - Last Filed: 06/18/24 22:19> ET tube uncuffed: No <Zach Harrington NP - Last Filed: 06/18/24 22:19> Tube secured depth (cm): 24 <Zach Harrington NP - Last Filed: 06/18/24 22:19> Tube secured location: lips <Zach Harrington NP - Last Filed: 06/18/24 22:19> Tube placement confirmation: visualized tube passing through cords, equal breath sounds bilaterally, no breath sounds over epigastrium and confirmation by capnometry <Zach Harrington NP - Last Filed: 06/18/24 22:19> Patient tolerated procedure: well and no complications <Zach Harrington NP - Last Filed: 06/18/24 22:19> Intubation complications: none <Zach Harrington PERSONAL LINES UNDERWRITER - Last Filed: 06/18/24 22:19>
[2024-06-18] MEDS: levETIRAcetam 250 MG in 0.9 % Sodium Chloride 100 ML 410 MG IV (22:34)
[2024-06-18] MEDS: Chlorhexidine Gluc Oral Rinse 15 ML MOUTHWASH BUCCAL (22:41)
[2024-06-18 23:55] LABS: Venous Blood Gas Refer to POC result
[2024-06-18 23:56] LABS: VBG Base Excess -6.7 mmol/L; VBG HCO3 17 mmol/L (22-26); VBG pCO2 32 mmHg; VBG pH 7.34 (7.32-7.43); VBG pO2 172 mmHg
[2024-06-19] VITALS (47 sets, daily range): BP systolic 80–149; BP diastolic 40–73; PULSE 38–91; RESP 12–23; TEMP 36.6–37.2; O2SAT 91–100; BMI 27.4
--- NOTE | 2024-06-19 | ECG_ITS ---
Test Reason : Twave inversions Blood Pressure : / mmHG Vent. Rate : 048 BPM Atrial Rate : 048 BPM P-R Int : 148 ms QRS Dur : 120 ms QT Int : 444 ms P-R-T Axes : 087 093 -85 degrees QTc Int : 396 ms Sinus bradycardia Rightward axis Pulmonary disease pattern Possible Inferior infarct , age undetermined T wave abnormality, consider lateral ischemia Abnormal ECG When compared with ECG of 17-JUN-2024 13:08, Sinus bradycardia has replaced Atrial fibrillation T wave inversion now evident in Lateral leads Heart rate has decreased Referred By: Zach Harrington Electronically Signed By:MILE REED
[2024-06-19 00:11] LABS: Anion Gap 12 (12-20); Blood Urea Nitrogen 26 mg/dL (9-16); Calcium 10.7 mg/dL (8.4-10.2); Carbon Dioxide 18 mmol/L (22-29); Chloride 125 mmol/L (96-108); Creatinine Clr Calc Pharmacy 49.7; Estimated Glomerular Filt Rate 46; Glucose Random 258 mg/dL (60-115); Potassium 3.9 mmol/L (3.3-5.1); Sodium 151 mmol/L (135-145)
[2024-06-19] MEDS: Dextrose 5 % 1,000 ML 150 ML IVCONT ×4 (00:59→22:52)
[2024-06-19] MEDS: Enoxaparin Sodium 60 MG/0.6 ML SYRINGE SUBCUT ×2 (02:17→15:35)
[2024-06-19] MEDS: Piperacillin Sodium/Tazobactam 4.5 GM in 0.9 % Sodium Chloride 100 ML IV ×4 (02:24→20:44)
[2024-06-19] MEDS: Norepinephrine Bitartrate/D5W 8 MG/250 ML PLAST..BAG 42.17 MG IVCONT (02:26)
[2024-06-19] MEDS: propofoL 1,000 MG/100 ML VIAL 10.38 MG IVCONT (04:33)
[2024-06-19 05:27] LABS: VBG Base Excess -4.1 mmol/L; VBG HCO3 18 mmol/L (22-26); VBG pCO2 28 mmHg; VBG pH 7.42 (7.32-7.43); VBG pO2 39 mmHg
[2024-06-19 05:30] LABS: Venous Blood Gas Refer to POC result
[2024-06-19 05:38] LABS: Basophils Absolute Auto 0.1 X10*3/uL (0.0-0.2); Basophils Percent Auto 0.3 % (0-2); Eosinophils Absolute Auto 0.4 X10*3/uL (0.0-0.4); Eosinophils Percent Auto 1.3 % (0-4); Hematocrit 43.2 % (42.0-52.0); Hemoglobin 14.3 g/dl (14.0-18.0); Imm Gran Abs Auto 0.14 X10*3/uL (0.00-0.03); Imm Gran Pct Auto 0.4 % (0.0-0.4); Lymphocytes Absolute Auto 18.3 X10*3/uL (1.2-4.9); Lymphocytes Percent Auto 54.6 % (20-40); Mean Corpuscular HGB Conc 33.1 g/dl (31.0-36.0); Mean Corpuscular Hemoglobin 30.4 pg (27.0-33.0); Mean Corpuscular Volume 91.7 fL (80.0-98.0); Mean Platelet Volume 9.7 fL (9.4-12.4); Monocytes Absolute Auto 1.4 X10*3/uL (0.1-1.2); Monocytes Percent Auto 4.3 % (2-11); Neutrophils Absolute Auto 13.1 x10*3/uL (2.0-8.3); Neutrophils Percent Auto 39.1 % (45-73); Platelet Count 267 X10*3/uL (160-400); Red Blood Count 4.71 X10*6/uL (4.60-5.80); SCAN SMEAR FLAG 1
[2024-06-19 05:40] LABS: MANUAL DIFF FLAG SCAN; White Blood Count 33.5 X10*3/uL (4.8-10.8)
[2024-06-19] MEDS: Pantoprazole Sodium 40 MG/10 ML VIAL IVPUSH (05:45)
[2024-06-19] MEDS: Levothyroxine Sodium 112 MCG TABLET PO (05:45)
[2024-06-19 05:55] LABS: SLIDE REVIEW VERIFIED
[2024-06-19 06:00] LABS: B Type Natriuretic Peptide 340 pg/mL (<100)
[2024-06-19 06:03] LABS: Alanine Aminotransferase 13 U/L (0-40); Albumin Level 3.5 g/dL (3.5-5.0); Alkaline Phosphatase 89 U/L (39-117); Anion Gap 17 (12-20); Aspartate Amino Transferase 26 U/L (5-37); Bilirubin Total 1.4 mg/dL (0.0-1.0); Blood Urea Nitrogen 25 mg/dL (9-16); Calcium 10.7 mg/dL (8.4-10.2); Carbon Dioxide 16 mmol/L (22-29); Chloride 123 mmol/L (96-108); Estimated Glomerular Filt Rate 45; Glucose Random 185 mg/dL (60-115); Magnesium 2.3 mg/dL (1.6-2.6); Phosphorus 2.4 mg/dL (2.7-4.5); Potassium 4.5 mmol/L (3.3-5.1); Sodium 151 mmol/L (135-145); Total Protein 6.6 g/dL (6.5-8.0)
[2024-06-19 06:19] LABS: Troponin-I High Sensitivity 33.6 ng/L (<3.5-35.0)
--- NOTE | 2024-06-19 06:30 | PC.NURSE ---
Pt transferred to ICU from Med/Tele at approx 1945. Upon initial assessment- pt stuporous, weak cough and minimal gag reflex, able to maintain airway. Found on Med/Tele to be on 10L via OxyMask prior to transfer, titrated up to 15L during transport to maintain SpO2 > 88%. Afib on tele, HR 90-110s, SBP > 90, MAP > 65. NGT in place to R nare. Martinez in place, emptied for 450 mL. At approx 2100- desaturating to 87% via 15L OxyMask, LS diminished throughout, RT notified. Placed on max HFNC with 15L NRB and continued to desaturate with worsening AMS. Not a candiate for NIV and decision made to intubate by DIPTI Harrington. At approx 2145- given propofol 100 mg IVP total for intubation and propofol gtt started for sedation per NOV. ETT #7.5, 24 cm at lip. on ACVC settings. Suctioned for moderate amount of thick cream inline secretions. Placement confirmed by pCXR. SBP 70-80s, MAP < 65, levophed ordered and titrated per NOV. At approx 0430- pt converted from afib/flutter to SB with TWI, HR 40-50s. EKG ordered and obtained per BUS INFO CONSULTANT. NGT used for medical safety director. UOP approx 50 mL/hr. No BM. Pt with impaired skin integrity- DTI to coccyx, triad cream applied, generalized bruising noted, heels elevated, repositioned in bed q2hr. HCP notification of pt status/plan of care attempted by BUS INFO CONSULTANT.
--- NOTE | 2024-06-19 08:10 | PM.PNNEP ---
Subjective Subjective Date of Service: 06/19/24 Interval history: 63-year-old gentleman with underlying CLL, hypertension, COPD, schizoaffective, alcoholic hepatitis, on chronically lithium therapy admitted on 06/16/2024 with alteration of mental status deemed to be secondary to lithium toxicity. Patient was also noted to have hypercalcemia with hyponatremia and hyperparathyroidism, IV fluids and calcinet for management. mental status has worsened and he was transferred to the ICU overnight (06/18), pulmonary aspiration requiring ventilatory support. he requires pressor support but has been titrating down. hypernatremia has improved to 151 (down from 159) creatinine bumped from 1.26 yesterday to 1.53 this morning pt is somnolent at bedside, does not respond to verbal or touch stimuli (currently sedated/intubated). Physical Exam Vital Signs: Vital Signs: Last Vital Signs Temp 98.4 F 06/19/24 10:00 Pulse 85 06/19/24 10:00 Resp 18 06/19/24 10:00 BP 136/56 L 06/19/24 10:00 Pulse Ox 95 06/19/24 10:00 O2 Del Method Mechanical Ventil ation 06/19/24 10:00 O2 Flow Rate 15 06/18/24 20:59 FiO2 30 06/19/24 10:00 BMI result Body Mass Index 27.4 Const: General: other (sedated, ventilated. ) HEENT: Mouth: mucous membranes dry Neck: Neck: Yes no JVD Resp: Other: pt pushing provider away and refuses physical exam/auscultation Auscultation: rhonchi (rhonchi throughout posterior lobes. ) Cardio: Other: pt pushing provider away and refuses physical exam/auscultation Jugular venous distension: no JVD Heart sounds: S1 normal heart sound present, S2 normal heart sound present and no murmurs GI: Other: pt pushing provider away and refuses physical exam/auscultation : Other: pt pushing provider away and refuses physical exam/auscultation General: Yes no CVA tenderness Back/Spine/Pelvis: Back: no CVA tenderness Skin: Rashes: no rashes Neuro: Other: sedated Extrem: General: Yes normal to inspection, No edema and No pedal edema Objective Data Labs 06/19/24 05:23 06/19/24 10:20 Labs: Laboratory Results - last 24 hr 06/17/24 06/18/24 06/18/24 18:06 10:27 13:11 WBC RBC Hgb Hct MCV MCH MCHC RDW Plt Count MPV Immature Gran % (Auto) Neut % (Auto) Lymph % (Auto) [place] % (Auto) Eos % (Auto) Baso % (Auto) Lymph # (Auto) [place] # (Auto) Eos # (Auto) Baso # (Auto) Abs Immat Gran (auto) Absolute Neuts (auto) Absolute Nucleated RBC Nucleated RBC % (auto) Smear Tech's Comments O2 Saturation ABG pH at Pt Temp ABG pCO2 at Pt Temp ABG pO2 at Pt Temp ABG HCO3 ABG Base Excess (Actual) VBG pH 7.37 VBG pCO2 32 VBG pO2 42 VBG HCO3 19 L VBG O2 Saturation 75.0 VBG Base Excess -4.7 Sodium 156 H Potassium 3.7 Chloride 129 H Carbon Dioxide 15 L Anion Gap 16 BUN 23 H Creatinine 1.28 Estim Creat Clear Calc 50.9 Estimated GFR 56 POC Glucose Random Glucose 124 H Lactic Acid Calcium 11.4 H Phosphorus Magnesium Total Bilirubin Direct Bilirubin AST ALT Alkaline Phosphatase Ammonia Total Creatine Kinase 74 Troponin I High Sens B-Natriuretic Peptide Total Protein Albumin PTH Intact 140.2 H Nasal Screen MRSA (PCR) POSITIVE A Nasal S. aureus Screen POSITIVE A Nasal MRSA/S.aureus Interp SEE NOTE 06/18/24 06/18/24 06/18/24 16:23 16:41 16:42 WBC RBC Hgb Hct MCV MCH MCHC RDW Plt Count MPV Immature Gran % (Auto) Neut % (Auto) Lymph % (Auto) [place] % (Auto) Eos % (Auto) Baso % (Auto) Lymph # (Auto) [place] # (Auto) Eos # (Auto) Baso # (Auto) Abs Immat Gran (auto) Absolute Neuts (auto) Absolute Nucleated RBC Nucleated RBC % (auto) Smear Tech's Comments O2 Saturation 91.0 ABG pH at Pt Temp 7.37 ABG pCO2 at Pt Temp 32 ABG pO2 at Pt Temp 63 L ABG HCO3 19 L ABG Base Excess (Actual) -5.1 VBG pH VBG pCO2 VBG pO2 VBG HCO3 VBG O2 Saturation VBG Base Excess Sodium Potassium Chloride Carbon Dioxide Anion Gap BUN Creatinine Estim Creat Clear Calc Estimated GFR POC Glucose 137 H Random Glucose Lactic Acid Calcium Phosphorus Magnesium Total Bilirubin Direct Bilirubin AST ALT Alkaline Phosphatase Ammonia 23 Total Creatine Kinase Troponin I High Sens B-Natriuretic Peptide Total Protein Albumin PTH Intact Nasal Screen MRSA (PCR) Nasal S. aureus Screen Nasal MRSA/S.aureus Interp 06/18/24 06/18/24 06/18/24 16:43 16:43 16:43 WBC 21.9 H RBC 4.97 Hgb 15.1 Hct 46.0 MCV 92.6 MCH 30.4 MCHC 32.8 RDW 14.7 Plt Count 228 MPV 9.7 Immature Gran % (Auto) Neut % (Auto) Lymph % (Auto) [place] % (Auto) Eos % (Auto) Baso % (Auto) Lymph # (Auto) [place] # (Auto) Eos # (Auto) Baso # (Auto) Abs Immat Gran (auto) Absolute Neuts (auto) Absolute Nucleated RBC 0.000 Nucleated RBC % (auto) 0.0 Smear Tech's Comments O2 Saturation ABG pH at Pt Temp ABG pCO2 at Pt Temp ABG pO2 at Pt Temp ABG HCO3 ABG Base Excess (Actual) VBG pH VBG pCO2 VBG pO2 VBG HCO3 VBG O2 Saturation VBG Base Excess Sodium 159 H Potassium 3.5 Chloride 129 H Carbon Dioxide 21 L Anion Gap 13 BUN 24 H Creatinine 1.44 H Estim Creat Clear Calc 45.2 Estimated GFR 49 POC Glucose Random Glucose 155 H Lactic Acid Calcium 11.4 H Phosphorus Magnesium Total Bilirubin 1.3 H Cancelled Direct Bilirubin 0.7 H Cancelled AST 19 ALT Alkaline Phosphatase Ammonia Total Creatine Kinase Troponin I High Sens B-Natriuretic Peptide Total Protein Albumin PTH Intact Nasal Screen MRSA (PCR) Nasal S. aureus Screen Nasal MRSA/S.aureus Interp 06/18/24 06/18/24 06/18/24 16:43 16:43 16:43 WBC RBC Hgb Hct MCV MCH MCHC RDW Plt Count MPV Immature Gran % (Auto) Neut % (Auto) Lymph % (Auto) [place] % (Auto) Eos % (Auto) Baso % (Auto) Lymph # (Auto) [place] # (Auto) Eos # (Auto) Baso # (Auto) Abs Immat Gran (auto) Absolute Neuts (auto) Absolute Nucleated RBC Nucleated RBC % (auto) Smear Tech's Comments O2 Saturation ABG pH at Pt Temp ABG pCO2 at Pt Temp ABG pO2 at Pt Temp ABG HCO3 ABG Base Excess (Actual) VBG pH VBG pCO2 VBG pO2 VBG HCO3 VBG O2 Saturation VBG Base Excess Sodium Potassium Chloride Carbon Dioxide Anion Gap BUN Creatinine Estim Creat Clear Calc Estimated GFR POC Glucose Random Glucose Lactic Acid Calcium Phosphorus Magnesium Total Bilirubin Direct Bilirubin AST Cancelled ALT 12 Cancelled Alkaline Phosphatase 101 Cancelled Ammonia Total Creatine Kinase Troponin I High Sens B-Natriuretic Peptide Total Protein 6.7 Albumin PTH Intact Nasal Screen MRSA (PCR) Nasal S. aureus Screen Nasal MRSA/S.aureus Interp 06/18/24 06/18/24 06/18/24 16:43 16:43 19:54 WBC 21.8 H RBC 4.89 Hgb 14.9 Hct 44.9 MCV 91.8 MCH 30.5 MCHC 33.2 RDW 14.6 Plt Count 235 MPV 9.7 Immature Gran % (Auto) 0.4 Neut % (Auto) 38.8 L Lymph % (Auto) 55.0 H [place] % (Auto) 5.0 Eos % (Auto) 0.6 Baso % (Auto) 0.2 Lymph # (Auto) 12.0 H [place] # (Auto) 1.1 Eos # (Auto) 0.1 Baso # (Auto) 0.1 Abs Immat Gran (auto) 0.08 H Absolute Neuts (auto) 8.5 H Absolute Nucleated RBC 0.000 Nucleated RBC % (auto) 0.0 Smear Tech's Comments VERIFIED O2 Saturation ABG pH at Pt Temp ABG pCO2 at Pt Temp ABG pO2 at Pt Temp ABG HCO3 ABG Base Excess (Actual) VBG pH VBG pCO2 VBG pO2 VBG HCO3 VBG O2 Saturation VBG Base Excess Sodium 158 H Potassium 3.5 Chloride 131 H Carbon Dioxide 19 L Anion Gap 12 BUN 25 H Creatinine 1.26 Estim Creat Clear Calc 51.7 Estimated GFR 57 POC Glucose Random Glucose 166 H Lactic Acid 0.8 Calcium 11.3 H Phosphorus 2.2 L Magnesium 2.6 Total Bilirubin Direct Bilirubin AST ALT Alkaline Phosphatase Ammonia Total Creatine Kinase Troponin I High Sens B-Natriuretic Peptide Total Protein Cancelled Albumin 3.9 Cancelled 3.8 PTH Intact Nasal Screen MRSA (PCR) Nasal S. aureus Screen Nasal MRSA/S.aureus Interp 06/18/24 06/18/24 06/18/24 20:02 23:45 23:50 WBC RBC Hgb Hct MCV MCH MCHC RDW Plt Count MPV Immature Gran % (Auto) Neut % (Auto) Lymph % (Auto) [place] % (Auto) Eos % (Auto) Baso % (Auto) Lymph # (Auto) [place] # (Auto) Eos # (Auto) Baso # (Auto) Abs Immat Gran (auto) Absolute Neuts (auto) Absolute Nucleated RBC Nucleated RBC % (auto) Smear Tech's Comments O2 Saturation ABG pH at Pt Temp ABG pCO2 at Pt Temp ABG pO2 at Pt Temp ABG HCO3 ABG Base Excess (Actual) VBG pH 7.44 H 7.34 VBG pCO2 25 32 VBG pO2 133 172 VBG HCO3 17 L 17 L VBG O2 Saturation 100.0 100.0 VBG Base Excess -4.6 -6.7 Sodium 151 H Potassium 3.9 Chloride 125 H Carbon Dioxide 18 L Anion Gap 12 BUN 26 H Creatinine 1.53 H Estim Creat Clear Calc 49.7 Estimated GFR 46 POC Glucose Random Glucose 258 H Lactic Acid Calcium 10.7 H Phosphorus Magnesium Total Bilirubin Direct Bilirubin AST ALT Alkaline Phosphatase Ammonia Total Creatine Kinase Troponin I High Sens B-Natriuretic Peptide Total Protein Albumin PTH Intact Nasal Screen MRSA (PCR) Nasal S. aureus Screen Nasal MRSA/S.aureus Interp 06/19/24 06/19/24 05:17 05:23 WBC 33.5 H* RBC 4.71 Hgb 14.3 Hct 43.2 MCV 91.7 MCH 30.4 MCHC 33.1 RDW 15.0 Plt Count 267 MPV 9.7 Immature Gran % (Auto) 0.4 Neut % (Auto) 39.1 L Lymph % (Auto) 54.6 H [place] % (Auto) 4.3 Eos % (Auto) 1.3 Baso % (Auto) 0.3 Lymph # (Auto) 18.3 H [place] # (Auto) 1.4 H Eos # (Auto) 0.4 Baso # (Auto) 0.1 Abs Immat Gran (auto) 0.14 H Absolute Neuts (auto) 13.1 H Absolute Nucleated RBC 0.000 Nucleated RBC % (auto) 0.0 Smear Tech's Comments VERIFIED O2 Saturation ABG pH at Pt Temp ABG pCO2 at Pt Temp ABG pO2 at Pt Temp ABG HCO3 ABG Base Excess (Actual) VBG pH 7.42 VBG pCO2 28 VBG pO2 39 VBG HCO3 18 L VBG O2 Saturation 72.0 VBG Base Excess -4.1 Sodium 151 H Potassium 4.5 Chloride 123 H Carbon Dioxide 16 L Anion Gap 17 BUN 25 H Creatinine 1.55 H Estim Creat Clear Calc 49.0 Estimated GFR 45 POC Glucose Random Glucose 185 H Lactic Acid Calcium 10.7 H Phosphorus 2.4 L Magnesium 2.3 Total Bilirubin 1.4 H Direct Bilirubin AST 26 ALT 13 Alkaline Phosphatase 89 Ammonia Total Creatine Kinase Troponin I High Sens 33.6 D B-Natriuretic Peptide 340 H Total Protein 6.6 Albumin 3.5 PTH Intact Nasal Screen MRSA (PCR) Nasal S. aureus Screen Nasal MRSA/S.aureus Interp Microbiology Microbiology Results: Microbiology 06/17/24 15:03 Blood - Venous Blood Culture - Preliminary No growth after 24 hours. 06/17/24 15:03 Blood - Venous Blood Culture - Preliminary No growth after 24 hours. Procedures Date of Service Date of Service: 06/19/24 Assessment & Plan Assessment and plan (1) Hypernatremia: Status: Acute (2) VALENCIA (acute kidney injury): Status: Acute (3) Altered mental status: Status: Acute (4) Hypercalcemia due to a drug: Status: Acute (5) [place] toxicity: Status: Acute Plan initially had VALENCIA likely secondary to lithium toxicity, renal function improved, overnight VALENCIA likely secondary to hypoperfusion from aspiration pneumonia hypernatremia- improving, continue IV fluids elevated calcium and PTH levels likely due to primary hyperparathyroidism. Recommend continuing IV hydration and add cinacalcet 30mg PO daily when patient is able to take PO medication recommend following intake and output closely, in addition to blood pressures avoid hypotension avoid nephrotoxic substances/medications hold calcium carbonate due to elevated calcium levels Discussed with Dr Shields Time Spent With Patient Time: Total time managing care of this patient today ____ minutes. Progress Note: Quality Stroke Does the patient have a stroke diagnosis?: No
[2024-06-19] MEDS: Benztropine Mesylate 1 MG TABLET PO (08:29)
[2024-06-19] MEDS: Naltrexone HCl 50 MG TABLET PO (08:29)
[2024-06-19] MEDS: Chlorhexidine Gluc Oral Rinse 15 ML MOUTHWASH BUCCAL ×3 (08:29→20:41)
[2024-06-19] MEDS: 0.9 % Sodium Chloride Flush 3 ML SYRINGE IVFLUSH ×2 (08:29→16:47)
[2024-06-19] MEDS: levETIRAcetam 250 MG in 0.9 % Sodium Chloride 100 ML 410 MG IV ×2 (08:30→20:38)
[2024-06-19] MEDS: Calcitonin,Salmon,Synth Nasal 3.7 ML BOTTLE 1 SPRAY NOSTRILALT (08:30)
--- NOTE | 2024-06-19 09:52 | PM.CCPN ---
Subjective Subjective Date of Service: 06/19/24 Interval History: 63-year-old gentleman with underlying CLL, hypertension, COPD, schizoaffective, alcoholic hepatitis, on chronically lithium therapy admitted on 06/16/2024 with alteration of mental status deemed to be secondary to lithium toxicity. Patient was also noted to have hypercalcemia with hyponatremia and hyperparathyroidism. He was evaluated by nephrology service and started on calcitonin and IV fluids. Hospital course significant for worsening hypernatremia and worsening alteration of mental status requiring transfer to intensive care unit on 06/18/2024, also with pulmonary aspiration requiring intubation and ventilatory support. No events overnight. Titrated off pressor support. FiO2 requirements improved significantly. Hypernatremia improved. Critical Care Time (minutes): 60 Physical Exam Vital Signs: Vital Signs: Last Vital Signs Temp 98.2 F 06/19/24 09:00 Pulse 55 06/19/24 09:00 Resp 22 H 06/19/24 09:00 BP 149/63 H 06/19/24 09:00 Pulse Ox 95 06/19/24 09:00 O2 Del Method Mechanical Ventil ation 06/19/24 09:00 O2 Flow Rate 15 06/18/24 20:59 FiO2 30 06/19/24 09:00 BMI result Body Mass Index 27.4 Const: General: no acute distress and other (Sedated on ventilatory support) Eyes: Sclerae: sclerae normal EOM: EOMs intact bilaterally Neck: Neck: Yes no lymphadenopathy, Yes trachea midline and Yes supple Resp: Effort & Inspection: normal respiratory effort and no respiratory distress Auscultation: clear to auscultation bilaterally Cardio: Rate: bradycardic Rhythm: regular rhythm Heart sounds: no gallops, no murmurs and no rubs GI: Palpation (GI): Soft to palpation and Other GI palpation findings present ( Nontender) Auscultation: normal bowel sounds Extrem: General: Yes no pedal edema, No clubbing and No cyanosis Objective Data Labs 06/19/24 05:23 06/19/24 05:23 Labs: Laboratory Results - last 24 hr 06/17/24 06/18/24 06/18/24 18:06 10:27 13:11 WBC RBC Hgb Hct MCV MCH MCHC RDW Plt Count MPV Immature Gran % (Auto) Neut % (Auto) Lymph % (Auto) [place] % (Auto) Eos % (Auto) Baso % (Auto) Lymph # (Auto) [place] # (Auto) Eos # (Auto) Baso # (Auto) Abs Immat Gran (auto) Absolute Neuts (auto) Absolute Nucleated RBC Nucleated RBC % (auto) Smear Tech's Comments O2 Saturation ABG pH at Pt Temp ABG pCO2 at Pt Temp ABG pO2 at Pt Temp ABG HCO3 ABG Base Excess (Actual) VBG pH 7.37 VBG pCO2 32 VBG pO2 42 VBG HCO3 19 L VBG O2 Saturation 75.0 VBG Base Excess -4.7 Sodium 156 H Potassium 3.7 Chloride 129 H Carbon Dioxide 15 L Anion Gap 16 BUN 23 H Creatinine 1.28 Estim Creat Clear Calc 50.9 Estimated GFR 56 POC Glucose Random Glucose 124 H Lactic Acid Calcium 11.4 H Phosphorus Magnesium Total Bilirubin Direct Bilirubin AST ALT Alkaline Phosphatase Ammonia Total Creatine Kinase 74 Troponin I High Sens B-Natriuretic Peptide Total Protein Albumin PTH Intact 140.2 H Nasal Screen MRSA (PCR) POSITIVE A Nasal S. aureus Screen POSITIVE A Nasal MRSA/S.aureus Interp SEE NOTE 06/18/24 06/18/24 06/18/24 16:23 16:41 16:42 WBC RBC Hgb Hct MCV MCH MCHC RDW Plt Count MPV Immature Gran % (Auto) Neut % (Auto) Lymph % (Auto) [place] % (Auto) Eos % (Auto) Baso % (Auto) Lymph # (Auto) [place] # (Auto) Eos # (Auto) Baso # (Auto) Abs Immat Gran (auto) Absolute Neuts (auto) Absolute Nucleated RBC Nucleated RBC % (auto) Smear Tech's Comments O2 Saturation 91.0 ABG pH at Pt Temp 7.37 ABG pCO2 at Pt Temp 32 ABG pO2 at Pt Temp 63 L ABG HCO3 19 L ABG Base Excess (Actual) -5.1 VBG pH VBG pCO2 VBG pO2 VBG HCO3 VBG O2 Saturation VBG Base Excess Sodium Potassium Chloride Carbon Dioxide Anion Gap BUN Creatinine Estim Creat Clear Calc Estimated GFR POC Glucose 137 H Random Glucose Lactic Acid Calcium Phosphorus Magnesium Total Bilirubin Direct Bilirubin AST ALT Alkaline Phosphatase Ammonia 23 Total Creatine Kinase Troponin I High Sens B-Natriuretic Peptide Total Protein Albumin PTH Intact Nasal Screen MRSA (PCR) Nasal S. aureus Screen Nasal MRSA/S.aureus Interp 06/18/24 06/18/24 06/18/24 16:43 16:43 16:43 WBC 21.9 H RBC 4.97 Hgb 15.1 Hct 46.0 MCV 92.6 MCH 30.4 MCHC 32.8 RDW 14.7 Plt Count 228 MPV 9.7 Immature Gran % (Auto) Neut % (Auto) Lymph % (Auto) [place] % (Auto) Eos % (Auto) Baso % (Auto) Lymph # (Auto) [place] # (Auto) Eos # (Auto) Baso # (Auto) Abs Immat Gran (auto) Absolute Neuts (auto) Absolute Nucleated RBC 0.000 Nucleated RBC % (auto) 0.0 Smear Tech's Comments O2 Saturation ABG pH at Pt Temp ABG pCO2 at Pt Temp ABG pO2 at Pt Temp ABG HCO3 ABG Base Excess (Actual) VBG pH VBG pCO2 VBG pO2 VBG HCO3 VBG O2 Saturation VBG Base Excess Sodium 159 H Potassium 3.5 Chloride 129 H Carbon Dioxide 21 L Anion Gap 13 BUN 24 H Creatinine 1.44 H Estim Creat Clear Calc 45.2 Estimated GFR 49 POC Glucose Random Glucose 155 H Lactic Acid Calcium 11.4 H Phosphorus Magnesium Total Bilirubin 1.3 H Cancelled Direct Bilirubin 0.7 H Cancelled AST 19 ALT Alkaline Phosphatase Ammonia Total Creatine Kinase Troponin I High Sens B-Natriuretic Peptide Total Protein Albumin PTH Intact Nasal Screen MRSA (PCR) Nasal S. aureus Screen Nasal MRSA/S.aureus Interp 06/18/24 06/18/24 06/18/24 16:43 16:43 16:43 WBC RBC Hgb Hct MCV MCH MCHC RDW Plt Count MPV Immature Gran % (Auto) Neut % (Auto) Lymph % (Auto) [place] % (Auto) Eos % (Auto) Baso % (Auto) Lymph # (Auto) [place] # (Auto) Eos # (Auto) Baso # (Auto) Abs Immat Gran (auto) Absolute Neuts (auto) Absolute Nucleated RBC Nucleated RBC % (auto) Smear Tech's Comments O2 Saturation ABG pH at Pt Temp ABG pCO2 at Pt Temp ABG pO2 at Pt Temp ABG HCO3 ABG Base Excess (Actual) VBG pH VBG pCO2 VBG pO2 VBG HCO3 VBG O2 Saturation VBG Base Excess Sodium Potassium Chloride Carbon Dioxide Anion Gap BUN Creatinine Estim Creat Clear Calc Estimated GFR POC Glucose Random Glucose Lactic Acid Calcium Phosphorus Magnesium Total Bilirubin Direct Bilirubin AST Cancelled ALT 12 Cancelled Alkaline Phosphatase 101 Cancelled Ammonia Total Creatine Kinase Troponin I High Sens B-Natriuretic Peptide Total Protein 6.7 Albumin PTH Intact Nasal Screen MRSA (PCR) Nasal S. aureus Screen Nasal MRSA/S.aureus Interp 06/18/24 06/18/24 06/18/24 16:43 16:43 19:54 WBC 21.8 H RBC 4.89 Hgb 14.9 Hct 44.9 MCV 91.8 MCH 30.5 MCHC 33.2 RDW 14.6 Plt Count 235 MPV 9.7 Immature Gran % (Auto) 0.4 Neut % (Auto) 38.8 L Lymph % (Auto) 55.0 H [place] % (Auto) 5.0 Eos % (Auto) 0.6 Baso % (Auto) 0.2 Lymph # (Auto) 12.0 H [place] # (Auto) 1.1 Eos # (Auto) 0.1 Baso # (Auto) 0.1 Abs Immat Gran (auto) 0.08 H Absolute Neuts (auto) 8.5 H Absolute Nucleated RBC 0.000 Nucleated RBC % (auto) 0.0 Smear Tech's Comments VERIFIED O2 Saturation ABG pH at Pt Temp ABG pCO2 at Pt Temp ABG pO2 at Pt Temp ABG HCO3 ABG Base Excess (Actual) VBG pH VBG pCO2 VBG pO2 VBG HCO3 VBG O2 Saturation VBG Base Excess Sodium 158 H Potassium 3.5 Chloride 131 H Carbon Dioxide 19 L Anion Gap 12 BUN 25 H Creatinine 1.26 Estim Creat Clear Calc 51.7 Estimated GFR 57 POC Glucose Random Glucose 166 H Lactic Acid 0.8 Calcium 11.3 H Phosphorus 2.2 L Magnesium 2.6 Total Bilirubin Direct Bilirubin AST ALT Alkaline Phosphatase Ammonia Total Creatine Kinase Troponin I High Sens B-Natriuretic Peptide Total Protein Cancelled Albumin 3.9 Cancelled 3.8 PTH Intact Nasal Screen MRSA (PCR) Nasal S. aureus Screen Nasal MRSA/S.aureus Interp 06/18/24 06/18/24 06/18/24 20:02 23:45 23:50 WBC RBC Hgb Hct MCV MCH MCHC RDW Plt Count MPV Immature Gran % (Auto) Neut % (Auto) Lymph % (Auto) [place] % (Auto) Eos % (Auto) Baso % (Auto) Lymph # (Auto) [place] # (Auto) Eos # (Auto) Baso # (Auto) Abs Immat Gran (auto) Absolute Neuts (auto) Absolute Nucleated RBC Nucleated RBC % (auto) Smear Tech's Comments O2 Saturation ABG pH at Pt Temp ABG pCO2 at Pt Temp ABG pO2 at Pt Temp ABG HCO3 ABG Base Excess (Actual) VBG pH 7.44 H 7.34 VBG pCO2 25 32 VBG pO2 133 172 VBG HCO3 17 L 17 L VBG O2 Saturation 100.0 100.0 VBG Base Excess -4.6 -6.7 Sodium 151 H Potassium 3.9 Chloride 125 H Carbon Dioxide 18 L Anion Gap 12 BUN 26 H Creatinine 1.53 H Estim Creat Clear Calc 49.7 Estimated GFR 46 POC Glucose Random Glucose 258 H Lactic Acid Calcium 10.7 H Phosphorus Magnesium Total Bilirubin Direct Bilirubin AST ALT Alkaline Phosphatase Ammonia Total Creatine Kinase Troponin I High Sens B-Natriuretic Peptide Total Protein Albumin PTH Intact Nasal Screen MRSA (PCR) Nasal S. aureus Screen Nasal MRSA/S.aureus Interp 06/19/24 06/19/24 05:17 05:23 WBC 33.5 H* RBC 4.71 Hgb 14.3 Hct 43.2 MCV 91.7 MCH 30.4 MCHC 33.1 RDW 15.0 Plt Count 267 MPV 9.7 Immature Gran % (Auto) 0.4 Neut % (Auto) 39.1 L Lymph % (Auto) 54.6 H [place] % (Auto) 4.3 Eos % (Auto) 1.3 Baso % (Auto) 0.3 Lymph # (Auto) 18.3 H [place] # (Auto) 1.4 H Eos # (Auto) 0.4 Baso # (Auto) 0.1 Abs Immat Gran (auto) 0.14 H Absolute Neuts (auto) 13.1 H Absolute Nucleated RBC 0.000 Nucleated RBC % (auto) 0.0 Smear Tech's Comments VERIFIED O2 Saturation ABG pH at Pt Temp ABG pCO2 at Pt Temp ABG pO2 at Pt Temp ABG HCO3 ABG Base Excess (Actual) VBG pH 7.42 VBG pCO2 28 VBG pO2 39 VBG HCO3 18 L VBG O2 Saturation 72.0 VBG Base Excess -4.1 Sodium 151 H Potassium 4.5 Chloride 123 H Carbon Dioxide 16 L Anion Gap 17 BUN 25 H Creatinine 1.55 H Estim Creat Clear Calc 49.0 Estimated GFR 45 POC Glucose Random Glucose 185 H Lactic Acid Calcium 10.7 H Phosphorus 2.4 L Magnesium 2.3 Total Bilirubin 1.4 H Direct Bilirubin AST 26 ALT 13 Alkaline Phosphatase 89 Ammonia Total Creatine Kinase Troponin I High Sens 33.6 D B-Natriuretic Peptide 340 H Total Protein 6.6 Albumin 3.5 PTH Intact Nasal Screen MRSA (PCR) Nasal S. aureus Screen Nasal MRSA/S.aureus Interp Microbiology Microbiology Results: Microbiology 06/17/24 15:03 Blood - Venous Blood Culture - Preliminary No growth after 24 hours. 06/17/24 15:03 Blood - Venous Blood Culture - Preliminary No growth after 24 hours. Progress Note: A&P Assessment and plan (1) Nephrogenic diabetes insipidus: Status: Acute (2) Acute hypoxic respiratory failure: Status: Acute (3) Pulmonary aspiration: Status: Acute (4) Hypernatremia: Status: Acute (5) Atrial fibrillation: Status: Acute (6) VALENCIA (acute kidney injury): Status: Acute (7) [place] toxicity: Status: Acute (8) Metabolic encephalopathy: Status: Acute (9) CLL (chronic lymphocytic leukemia): Status: Acute (10) Hypercalcemia due to a drug: Status: Acute (11) 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: Status: Acute Plan Assessment: 63-year-old gentleman with underlying schizoaffective and depressive disorder on lithium therapy admitted with alteration of mental status with lithium toxicity resulting in nephrogenic diabetes insipidus with hypernatremia, hypercalcemia, and alteration of mental status, further complicated by pulmonary aspiration and acute hypoxic respiratory failure requiring ventilatory support. Plan: Neuro: Metabolic encephalopathy secondary to hypernatremia, improving.? Partial seizures, continues on Keppra, if not improving, will consider repeating EEG. Cardiac: No acute issues. Pulmonary: Acute hypoxic respiratory failure secondary to pulmonary aspiration secondary to metabolic encephalopathy, now requiring ventilatory support, improving. Continue to titrate off ventilatory support as tolerated. Renal: Acute renal failure, nephrogenic diabetes insipidus, hypernatremia, hypercalcemia secondary to lithium toxicity. Nephrology service care appreciated. Hypernatremia, diabetes insipidus, and hypercalcemia improving. Continue to monitor electrolytes. Endo: No acute issues. GI: No acute issues. ID: Empiric coverage for pulmonary aspiration. Heme/Onc: No acute issues. Psych: No acute issues. Underlying schizoaffective disorder and major depressive disorder. Miscellaneous: No acute issues. Prophylaxis: Lovenox, PPI Diet: NPO Critical care time spent: 60 minutes Quality Stroke Does the patient have a stroke diagnosis?: No VTE Prior VTE?: No VTE Risk Level:: Medical - moderate - high VTE Device Contraindication: Treatment Not Indicated VTE Drug Contraindication: N/A - Med Ordered
--- NOTE | 2024-06-19 10:25 | PM.PNCARD ---
Subjective Subjective Date of Service: 06/19/24 Interval history: Seen examined at bedside. Currently intubated for aspiration pneumonia. Physical Exam Vital Signs: Last Vital Signs Temp 98.2 F 06/19/24 09:00 Pulse 55 06/19/24 09:00 Resp 22 H 06/19/24 09:00 BP 149/63 H 06/19/24 09:00 Pulse Ox 95 06/19/24 09:00 O2 Del Method Mechanical Ventilation 06/19/24 09:00 O2 Flow Rate 15 06/18/24 20:59 FiO2 30 06/19/24 09:00 BMI result Body Mass Index 27.4 GENERAL APPEARANCE: Sedated and ventilated. NECK: no carotid bruit, no jugular venous distention. HEART: no murmurs, regular rate and rhythm. LUNGS: clear to auscultation anteriorly. ABDOMEN: soft, nontender. EXTREMITIES: no edema. PERIPHERAL PULSES: equal. NEUROLOGIC: Sedated. Objective Labs and Meds 06/19/24 05:23 06/19/24 05:23 Lab results: Laboratory Results - last 24 hr 06/17/24 06/18/24 06/18/24 18:06 10:27 13:11 WBC RBC Hgb Hct MCV MCH MCHC RDW Plt Count MPV Immature Gran % (Auto) Neut % (Auto) Lymph % (Auto) [place] % (Auto) Eos % (Auto) Baso % (Auto) Lymph # (Auto) [place] # (Auto) Eos # (Auto) Baso # (Auto) Abs Immat Gran (auto) Absolute Neuts (auto) Absolute Nucleated RBC Nucleated RBC % (auto) Smear Tech's Comments O2 Saturation ABG pH at Pt Temp ABG pCO2 at Pt Temp ABG pO2 at Pt Temp ABG HCO3 ABG Base Excess (Actual) VBG pH 7.37 VBG pCO2 32 VBG pO2 42 VBG HCO3 19 L VBG O2 Saturation 75.0 VBG Base Excess -4.7 Sodium 156 H Potassium 3.7 Chloride 129 H Carbon Dioxide 15 L Anion Gap 16 BUN 23 H Creatinine 1.28 Estim Creat Clear Calc 50.9 Estimated GFR 56 POC Glucose Random Glucose 124 H Lactic Acid Calcium 11.4 H Phosphorus Magnesium Total Bilirubin Direct Bilirubin AST ALT Alkaline Phosphatase Ammonia Total Creatine Kinase 74 Troponin I High Sens B-Natriuretic Peptide Total Protein Albumin PTH Intact 140.2 H Nasal Screen MRSA (PCR) POSITIVE A Nasal S. aureus Screen POSITIVE A Nasal MRSA/S.aureus Interp SEE NOTE 06/18/24 06/18/24 06/18/24 16:23 16:41 16:42 WBC RBC Hgb Hct MCV MCH MCHC RDW Plt Count MPV Immature Gran % (Auto) Neut % (Auto) Lymph % (Auto) [place] % (Auto) Eos % (Auto) Baso % (Auto) Lymph # (Auto) [place] # (Auto) Eos # (Auto) Baso # (Auto) Abs Immat Gran (auto) Absolute Neuts (auto) Absolute Nucleated RBC Nucleated RBC % (auto) Smear Tech's Comments O2 Saturation 91.0 ABG pH at Pt Temp 7.37 ABG pCO2 at Pt Temp 32 ABG pO2 at Pt Temp 63 L ABG HCO3 19 L ABG Base Excess (Actual) -5.1 VBG pH VBG pCO2 VBG pO2 VBG HCO3 VBG O2 Saturation VBG Base Excess Sodium Potassium Chloride Carbon Dioxide Anion Gap BUN Creatinine Estim Creat Clear Calc Estimated GFR POC Glucose 137 H Random Glucose Lactic Acid Calcium Phosphorus Magnesium Total Bilirubin Direct Bilirubin AST ALT Alkaline Phosphatase Ammonia 23 Total Creatine Kinase Troponin I High Sens B-Natriuretic Peptide Total Protein Albumin PTH Intact Nasal Screen MRSA (PCR) Nasal S. aureus Screen Nasal MRSA/S.aureus Interp 06/18/24 06/18/24 06/18/24 16:43 16:43 16:43 WBC 21.9 H RBC 4.97 Hgb 15.1 Hct 46.0 MCV 92.6 MCH 30.4 MCHC 32.8 RDW 14.7 Plt Count 228 MPV 9.7 Immature Gran % (Auto) Neut % (Auto) Lymph % (Auto) [place] % (Auto) Eos % (Auto) Baso % (Auto) Lymph # (Auto) [place] # (Auto) Eos # (Auto) Baso # (Auto) Abs Immat Gran (auto) Absolute Neuts (auto) Absolute Nucleated RBC 0.000 Nucleated RBC % (auto) 0.0 Smear Tech's Comments O2 Saturation ABG pH at Pt Temp ABG pCO2 at Pt Temp ABG pO2 at Pt Temp ABG HCO3 ABG Base Excess (Actual) VBG pH VBG pCO2 VBG pO2 VBG HCO3 VBG O2 Saturation VBG Base Excess Sodium 159 H Potassium 3.5 Chloride 129 H Carbon Dioxide 21 L Anion Gap 13 BUN 24 H Creatinine 1.44 H Estim Creat Clear Calc 45.2 Estimated GFR 49 POC Glucose Random Glucose 155 H Lactic Acid Calcium 11.4 H Phosphorus Magnesium Total Bilirubin 1.3 H Cancelled Direct Bilirubin 0.7 H Cancelled AST 19 ALT Alkaline Phosphatase Ammonia Total Creatine Kinase Troponin I High Sens B-Natriuretic Peptide Total Protein Albumin PTH Intact Nasal Screen MRSA (PCR) Nasal S. aureus Screen Nasal MRSA/S.aureus Interp 06/18/24 06/18/24 06/18/24 16:43 16:43 16:43 WBC RBC Hgb Hct MCV MCH MCHC RDW Plt Count MPV Immature Gran % (Auto) Neut % (Auto) Lymph % (Auto) [place] % (Auto) Eos % (Auto) Baso % (Auto) Lymph # (Auto) [place] # (Auto) Eos # (Auto) Baso # (Auto) Abs Immat Gran (auto) Absolute Neuts (auto) Absolute Nucleated RBC Nucleated RBC % (auto) Smear Tech's Comments O2 Saturation ABG pH at Pt Temp ABG pCO2 at Pt Temp ABG pO2 at Pt Temp ABG HCO3 ABG Base Excess (Actual) VBG pH VBG pCO2 VBG pO2 VBG HCO3 VBG O2 Saturation VBG Base Excess Sodium Potassium Chloride Carbon Dioxide Anion Gap BUN Creatinine Estim Creat Clear Calc Estimated GFR POC Glucose Random Glucose Lactic Acid Calcium Phosphorus Magnesium Total Bilirubin Direct Bilirubin AST Cancelled ALT 12 Cancelled Alkaline Phosphatase 101 Cancelled Ammonia Total Creatine Kinase Troponin I High Sens B-Natriuretic Peptide Total Protein 6.7 Albumin PTH Intact Nasal Screen MRSA (PCR) Nasal S. aureus Screen Nasal MRSA/S.aureus Interp 06/18/24 06/18/24 06/18/24 16:43 16:43 19:54 WBC 21.8 H RBC 4.89 Hgb 14.9 Hct 44.9 MCV 91.8 MCH 30.5 MCHC 33.2 RDW 14.6 Plt Count 235 MPV 9.7 Immature Gran % (Auto) 0.4 Neut % (Auto) 38.8 L Lymph % (Auto) 55.0 H [place] % (Auto) 5.0 Eos % (Auto) 0.6 Baso % (Auto) 0.2 Lymph # (Auto) 12.0 H [place] # (Auto) 1.1 Eos # (Auto) 0.1 Baso # (Auto) 0.1 Abs Immat Gran (auto) 0.08 H Absolute Neuts (auto) 8.5 H Absolute Nucleated RBC 0.000 Nucleated RBC % (auto) 0.0 Smear Tech's Comments VERIFIED O2 Saturation ABG pH at Pt Temp ABG pCO2 at Pt Temp ABG pO2 at Pt Temp ABG HCO3 ABG Base Excess (Actual) VBG pH VBG pCO2 VBG pO2 VBG HCO3 VBG O2 Saturation VBG Base Excess Sodium 158 H Potassium 3.5 Chloride 131 H Carbon Dioxide 19 L Anion Gap 12 BUN 25 H Creatinine 1.26 Estim Creat Clear Calc 51.7 Estimated GFR 57 POC Glucose Random Glucose 166 H Lactic Acid 0.8 Calcium 11.3 H Phosphorus 2.2 L Magnesium 2.6 Total Bilirubin Direct Bilirubin AST ALT Alkaline Phosphatase Ammonia Total Creatine Kinase Troponin I High Sens B-Natriuretic Peptide Total Protein Cancelled Albumin 3.9 Cancelled 3.8 PTH Intact Nasal Screen MRSA (PCR) Nasal S. aureus Screen Nasal MRSA/S.aureus Interp 06/18/24 06/18/24 06/18/24 20:02 23:45 23:50 WBC RBC Hgb Hct MCV MCH MCHC RDW Plt Count MPV Immature Gran % (Auto) Neut % (Auto) Lymph % (Auto) [place] % (Auto) Eos % (Auto) Baso % (Auto) Lymph # (Auto) [place] # (Auto) Eos # (Auto) Baso # (Auto) Abs Immat Gran (auto) Absolute Neuts (auto) Absolute Nucleated RBC Nucleated RBC % (auto) Smear Tech's Comments O2 Saturation ABG pH at Pt Temp ABG pCO2 at Pt Temp ABG pO2 at Pt Temp ABG HCO3 ABG Base Excess (Actual) VBG pH 7.44 H 7.34 VBG pCO2 25 32 VBG pO2 133 172 VBG HCO3 17 L 17 L VBG O2 Saturation 100.0 100.0 VBG Base Excess -4.6 -6.7 Sodium 151 H Potassium 3.9 Chloride 125 H Carbon Dioxide 18 L Anion Gap 12 BUN 26 H Creatinine 1.53 H Estim Creat Clear Calc 49.7 Estimated GFR 46 POC Glucose Random Glucose 258 H Lactic Acid Calcium 10.7 H Phosphorus Magnesium Total Bilirubin Direct Bilirubin AST ALT Alkaline Phosphatase Ammonia Total Creatine Kinase Troponin I High Sens B-Natriuretic Peptide Total Protein Albumin PTH Intact Nasal Screen MRSA (PCR) Nasal S. aureus Screen Nasal MRSA/S.aureus Interp 06/19/24 06/19/24 05:17 05:23 WBC 33.5 H* RBC 4.71 Hgb 14.3 Hct 43.2 MCV 91.7 MCH 30.4 MCHC 33.1 RDW 15.0 Plt Count 267 MPV 9.7 Immature Gran % (Auto) 0.4 Neut % (Auto) 39.1 L Lymph % (Auto) 54.6 H [place] % (Auto) 4.3 Eos % (Auto) 1.3 Baso % (Auto) 0.3 Lymph # (Auto) 18.3 H [place] # (Auto) 1.4 H Eos # (Auto) 0.4 Baso # (Auto) 0.1 Abs Immat Gran (auto) 0.14 H Absolute Neuts (auto) 13.1 H Absolute Nucleated RBC 0.000 Nucleated RBC % (auto) 0.0 Smear Tech's Comments VERIFIED O2 Saturation ABG pH at Pt Temp ABG pCO2 at Pt Temp ABG pO2 at Pt Temp ABG HCO3 ABG Base Excess (Actual) VBG pH 7.42 VBG pCO2 28 VBG pO2 39 VBG HCO3 18 L VBG O2 Saturation 72.0 VBG Base Excess -4.1 Sodium 151 H Potassium 4.5 Chloride 123 H Carbon Dioxide 16 L Anion Gap 17 BUN 25 H Creatinine 1.55 H Estim Creat Clear Calc 49.0 Estimated GFR 45 POC Glucose Random Glucose 185 H Lactic Acid Calcium 10.7 H Phosphorus 2.4 L Magnesium 2.3 Total Bilirubin 1.4 H Direct Bilirubin AST 26 ALT 13 Alkaline Phosphatase 89 Ammonia Total Creatine Kinase Troponin I High Sens 33.6 D B-Natriuretic Peptide 340 H Total Protein 6.6 Albumin 3.5 PTH Intact Nasal Screen MRSA (PCR) Nasal S. aureus Screen Nasal MRSA/S.aureus Interp Imaging Radiologist's impression: Impressions Head CT 06/18/24 16:57 IMPRESSION: Unremarkable chest exam. No acute intracranial process seen. Electronically signed by: Ck Daniel MD 06/18/2024 05:45 PM EDT RP Chest X-Ray 06/18/24 17:00 IMPRESSION: Unremarkable chest exam. No acute intracranial process seen. Electronically signed by: Ck Daniel MD 06/18/2024 05:45 PM EDT RP Chest X-Ray 06/18/24 22:08 IMPRESSION: 1. Endotracheal tube terminates 5.5 cm above the steffanie. 2. Increased retrocardiac consolidation. Electronically signed by: William Albrecht DO 06/19/2024 12:28 AM EDT Progress Note: A&P Assessment and plan (1) Atrial fibrillation: Status: Acute (2) Pulmonary aspiration: Status: Acute Plan [age] year gentleman with lithium toxicity and metabolic encephalopathy. He had AFib with RVR. Apparently he aspirated and is currently intubated in the ICU. He has converted back to sinus rhythm at this stage. CHADS-VASc is 2. Long-term anticoagulation to be decided based on neurological recovery and stability with ambulation. Thank you for allowing me to participate in the care of your patient. Please feel free to contact me if you have any questions. Time Spent With Patient Time: Total time managing care of this patient today ____ minutes. Progress Note: Quality Stroke Does the patient have a stroke diagnosis?: No Procedures Date of Service Date of Service: 06/19/24
[2024-06-19 10:46] LABS: Anion Gap 13 (12-20); Blood Urea Nitrogen 25 mg/dL (9-16); Calcium 10.7 mg/dL (8.4-10.2); Carbon Dioxide 18 mmol/L (22-29); Chloride 124 mmol/L (96-108); Creatinine Clr Calc Pharmacy 50.3; Estimated Glomerular Filt Rate 47; Glucose Random 143 mg/dL (60-115); Potassium 4.3 mmol/L (3.3-5.1); Sodium 151 mmol/L (135-145)
--- NOTE | 2024-06-19 11:36 | PM.NEUROCN ---
History of Present Illness Data of Consult Service Date: 06/19/24 Primary Care Provider: Galileo Livingston MD HPI Reason for consult: Encephalopathy 63 years old man with underlying history of psychiatric disease on lithium was brought to hospital with change in mental status and was noted to have toxic level of lithium. At 1 point he was intubated. No obvious convulsion was noted. His mental status continued to worsen or he did not wake up but at the same time he was noted to be in acute renal failure and a white cell count. An EEG was performed that revealed generalized slowing but also evidence of right hemispheric sharp wave complexes. When I saw him today in ICU fentanyl has been stopped for couple of hours but he was still intubated. 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 Encounter for general adult medical examination with abnormal findings Alcoholic liver disease Schizoaffective disorder Depression, major, recurrent (Unknown) Thrombocytosis Obesity Tobacco abuse BPH (benign prostatic hyperplasia) COPD (chronic obstructive pulmonary disease) Lipid disorder Chronic GERD Hypothyroidism Family History Family History Father HTN (hypertension) CVD (cardiovascular disease) Sister AIDS Maternal Grandfather Unknown family medical history Maternal Grandmother Unknown family medical history Paternal Grandfather Unknown family medical history Paternal Grandmother Unknown family medical history Sister No problems noted. Sister No problems noted. Sister No problems noted. Surgical History Surgical History History of surgery History of hernia repair Social History Social History Household Members: None Housing: Unknown / Unable to assess Are you a primary adult day care worker to a significant other at home: No Do you presently have visiting nurse or other home services: Yes Alcohol intake: former Comment: restraints Patient Tobacco Use Status: Tobacco use Unknown Tobacco use type: Cigar Cigarette Packs Per Day: 1 e-Cigarette/Vaping Use: Never Used Substance Use Type: Marijuana Advance Directives Date on File: 08/16/22 service: No Current occupational status: disabled Cognitive needs: No Hearing needs: No Vision needs: No Meds Allergies Allergy/AdvReac Type Severity Reaction Status Date / Time atorvastatin [From LIPITOR] Allergy Unknown HIGH LFTS Verified 06/16/24 18:47 Active Medications: Current Medications Acetaminophen (Acetaminophen 325 Mg Tablet) 650 mg PO Q6H PRN PRN Reason: Pain, Mild (Pain Scale 1-3), fever or headache Amlodipine Besylate (Amlodipine Besylate 5 Mg Tablet) 5 mg PO BEDTIME [facility]; Protocol Last Admin: 06/17/24 20:43 Dose: Not Given Benztropine Mesylate (Benztropine Mesylate 1 Mg Tablet) 1 mg PO DAILY [facility] Last Admin: 06/19/24 08:29 Dose: 1 mg Calcitonin Arnold (Calcitonin,Arnold,Synth Nasal 3.7 Ml Bottle) 1 spray NOSTRILALT DAILY [facility] Last Admin: 06/19/24 08:30 Dose: 1 spray Chlorhexidine Gluconate (Chlorhexidine Gluc Oral Rinse 15 Ml Mouthwash) 15 ml BUCCAL TID [facility] Last Admin: 06/19/24 08:29 Dose: 15 ml Ezetimibe (Ezetimibe 10 Mg Tablet) 10 mg PO DAILY [facility] Last Admin: 06/18/24 11:11 Dose: Not Given Enoxaparin Sodium (Enoxaparin Sodium 60 Mg/0.6 Ml Syringe) 60 mg 1 mg/kg (60 mg) SUBCUT Q12H [facility] Last Admin: 06/19/24 02:17 Dose: 60 mg Ferrous Sulfate (Ferrous Sulfate 324 Mg Tablet.Dr) 324 mg PO DAILY [facility] Last Admin: 06/18/24 11:11 Dose: Not Given Piperacillin Sod/Tazobactam (Sod 4.5 gm/ Sodium Chloride) 100 mls @ 200 mls/hr IV Q6H [facility] Last Infusion: 06/19/24 09:12 Dose: Infused Vancomycin HCl 1,250 mg/ (Sodium Chloride) 250 mls @ 166.667 mls/hr IV Q24H [facility] Last Infusion: 06/18/24 19:14 Dose: Infused Dextrose (D5w) 1,000 mls @ 150 mls/hr IVCONT .Q6H40M [facility] Last Admin: 06/19/24 08:35 Dose: 150 mls/hr Levetiracetam 250 mg/ Sodium (Chloride) 102.5 mls @ 410 mls/hr IV BID [facility] Last Infusion: 06/19/24 09:12 Dose: Infused Propofol (Diprivan) 1,000 mg in 100 mls @ 0 mls/hr IVCONT .Q0M [facility]; Protocol Last Titration: 06/19/24 09:47 Dose: 0 mcg/kg/min, 0 mls/hr Norepinephrine Bitartrate (Levophed) 8 mg in 250 mls @ 0 mls/hr IVCONT .Q0M [facility]; Protocol Last Titration: 06/19/24 07:43 Dose: 0.02 mcg/kg/min, 3.24 mls/hr Levothyroxine Sodium (Levothyroxine Sodium 112 Mcg Tablet) 112 mcg PO DAILY@0600 [facility] Last Admin: 06/19/24 05:45 Dose: 112 mcg Magnesium Hydroxide (Milk Of Magnesia 30 Ml Oral.Susp) 30 ml PO DAILY PRN PRN Reason: Constipation Melatonin (Melatonin 3 Mg Tablet) 6 mg PO BEDTIME PRN PRN Reason: Insomnia Metoprolol Tartrate (Metoprolol Tartrate 25 Mg Tablet) 25 mg PO BID [facility]; Protocol Last Admin: 06/19/24 09:12 Dose: Not Given Multivitamins/Vitamin C (Multivitamin Tablet) 1 tab PO DAILY [facility] Last Admin: 06/18/24 11:11 Dose: Not Given Naltrexone HCl (Naltrexone Hcl 50 Mg Tablet) 50 mg PO DAILY [facility] Last Admin: 06/19/24 08:29 Dose: 50 mg Non-Formulary Medication (Dutasteride) 0.5 mg PO BEDTIME [facility] Non-Formulary Medication (Fluticasone Propionate) 2 puff INHALE BID [facility] Non-Formulary Medication (Risperidone Microspheres) 50 mg IM Q14D [facility] Nystatin (Nystatin Powder 15 Gm Bottle) 1 appl TOPICAL BID [facility]; Protocol Ondansetron HCl (Ondansetron Hcl 4 Mg/2 Ml Vial) 4 mg IVPUSH Q8H PRN PRN Reason: Nausea and Vomiting Pantoprazole Sodium (Pantoprazole Sodium 40 Mg/10 Ml Vial) 40 mg IVPUSH DAILY@0630 [facility] Last Admin: 06/19/24 05:45 Dose: 40 mg Paroxetine HCl (Paroxetine Hcl 40 Mg Tablet) 40 mg PO BEDTIME [facility] Last Admin: 06/17/24 20:44 Dose: Not Given Pharmacy Consult (Consult Rx Vancomycin Dosing) 1 each MISCELLANE DAILY PRN PRN Reason: Consult order Sodium Chloride (0.9 % Sodium Chloride Flush 3 Ml Syringe) 3 ml IVFLUSH QSHIFT [facility] Last Admin: 06/19/24 08:29 Dose: 3 ml Tamsulosin HCl (Tamsulosin Hcl 0.4 Mg Capsule) 0.8 mg PO BEDTIME [facility] Last Admin: 06/18/24 20:45 Dose: 0.8 mg Home Medications ?Medication ?Instructions ?Recorded ?Confirmed ?Last Taken ?Type paroxetine HCl 40 mg tablet (Paxil) 40 mg PO BEDTIME 07/15/20 06/17/24 Unknown History risperidone microspheres 50 mg/2 50 mg IM Q2W 07/15/20 06/17/24 Unknown History mL intramuscular susp,ext release benztropine 1 mg tablet 1 mg PO DAILY 03/17/21 06/17/24 Unknown History lithium carbonate 300 mg capsule 300 mg PO BID 12/14/21 06/17/24 Unknown History amlodipine 5 mg tablet 5 mg PO BEDTIME 06/17/24 06/17/24 Unknown History dutasteride 0.5 mg capsule 0.5 mg PO BEDTIME 06/17/24 06/17/24 Unknown History ferrous sulfate 325 mg (65 mg 325 mg PO DAILY 06/17/24 06/17/24 Unknown History iron) tablet (Iron (ferrous sulfate)) fluticasone propionate 44 2 puff inhalation BID 06/17/24 06/17/24 Unknown History mcg/actuation HFA aerosol inhaler levothyroxine 112 mcg tablet 112 mcg PO DAILY@59906/17/24 06/17/24 Unknown History naltrexone 50 mg tablet 50 mg PO DAILY 06/17/24 06/17/24 Unknown History omeprazole 20 mg capsule,delayed 20 mg PO DAILY@62906/17/24 06/17/24 Unknown History release tamsulosin 0.4 mg capsule (Flomax) 0.8 mg PO BEDTIME 06/17/24 06/17/24 Unknown History Physical Exam Vital Signs: Vital Signs: Last Vital Signs Temp 98.8 F 06/19/24 11:00 Pulse 58 06/19/24 11:00 Resp 23 H 06/19/24 11:00 BP 103/49 L 06/19/24 11:00 Pulse Ox 91 L 06/19/24 11:00 O2 Del Method Mechanical Ventil ation 06/19/24 11:00 O2 Flow Rate 15 06/18/24 20:59 FiO2 30 06/19/24 11:14 BMI result Body Mass Index 27.4 Neuro: Other: Intubated did not respond to verbal commands. Minimal respond to pain commands. Pupils about 3-4 mm round reactive. No obvious I jerking or deviation. He was moving his eyes. Corneal reflexes are present. He was moving his hands but did not respond to commands. Plantars were flexor. Results Labs 06/19/24 05:23 06/19/24 10:20 Labs: Short CBC 06/18/24 06/18/24 06/19/24 Range/Units 16:43 19:54 05:23 WBC 21.9 H 21.8 H 33.5 H* (4.8-10.8) X10*3/uL Hgb 15.1 14.9 14.3 (14.0-18.0) g/dl Hct 46.0 44.9 43.2 (42.0-52.0) % Plt Count 228 235 267 (160-400) X10*3/uL BMP 06/18/24 06/18/24 06/18/24 16:43 19:54 23:45 Sodium 159 H 158 H 151 H Potassium 3.5 3.5 3.9 Chloride 129 H 131 H 125 H Carbon Dioxide 21 L 19 L 18 L BUN 24 H 25 H 26 H Creatinine 1.44 H 1.26 1.53 H Calcium 11.4 H 11.3 H 10.7 H 06/19/24 06/19/24 05:23 10:20 Sodium 151 H 151 H Potassium 4.5 4.3 Chloride 123 H 124 H Carbon Dioxide 16 L 18 L BUN 25 H 25 H Creatinine 1.55 H 1.51 H Calcium 10.7 H 10.7 H Cardiac Enzymes 06/18/24 Range/Units 10:27 Total Creatine Kinase 74 (38-174) U/L Liver Function 06/18/24 06/18/24 06/18/24 Range/Units 16:43 16:43 16:43 Total Bilirubin 1.3 H Cancelled (0.0-1.0) mg/dL Direct Bilirubin 0.7 H Cancelled (0.0-0.5) mg/dL AST 19 (5-37) U/L ALT (0-40) U/L Alkaline Phosphatase (39-117) U/L Albumin (3.5-5.0) g/dL 06/18/24 06/18/24 06/18/24 Range/Units 16:43 16:43 16:43 Total Bilirubin (0.0-1.0) mg/dL Direct Bilirubin (0.0-0.5) mg/dL AST Cancelled (5-37) U/L ALT 12 Cancelled (0-40) U/L Alkaline Phosphatase 101 Cancelled (39-117) U/L Albumin 3.9 (3.5-5.0) g/dL 06/18/24 06/18/24 06/19/24 Range/Units 16:43 19:54 05:23 Total Bilirubin 1.4 H (0.0-1.0) mg/dL Direct Bilirubin (0.0-0.5) mg/dL AST 26 (5-37) U/L ALT 13 (0-40) U/L Alkaline Phosphatase 89 (39-117) U/L Albumin Cancelled 3.8 3.5 (3.5-5.0) g/dL Head CT revealed mild chronic microvascular basal ganglia area pathology. Microbiology Microbiology Results: Microbiology 06/17/24 15:03 Blood - Venous Blood Culture - Preliminary No growth after 24 hours. 06/17/24 15:03 Blood - Venous Blood Culture - Preliminary No growth after 24 hours. Assessment and Plan (1) Metabolic encephalopathy: Status: Acute Probably multifactorial but primarily metabolic toxic encephalopathy. Conservative management with correction of metabolic numbers and treatment of infection is recommended. Because of abnormalities noted on her is EEG suggestive of epileptic encephalopathy, dose of levetiracetam was recommended. I would recommend repeat EEG afterwards. Procedures Date of Service Date of Service: 06/19/24
--- NOTE | 2024-06-19 12:07 | MHC.SLORD ---
Speech Language Pathology Order Status: Pt has been reintubated, ST to evaluate upon extubation as appropriate
--- NOTE | 2024-06-19 13:55 | MHC.CM.PN ---
Met with pt's 23 yr [employer] worker, Danica who provided the following information on pt: Pt resides alone, has [employer] services, minimally ambulatory, blind in the left eye and a very heavy smoker. 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 Pt has a HCP on file, his sister Arlene who had been estranged from pt for most of his adult life but is willing to assist with medical decisions at this time with the assistance of Danica who knows pt best. Danica feels pt will not be able to return to his apartment d/t his increasing weakness and negligent self care. She had been working with [facility] to have pt transition to a congregate housing situation where pt may have more oversight and care however, these homes are non smoking and pt has refused. D/C plans remain ongoing and will depend on pt making clinical progress for assessment of his abilities. Pt may need activation of HCP if he is not able to make his own decisions. CM to call pt's sister/HCP Arlene to update.
--- NOTE | 2024-06-19 14:03 | P.CDIM_ITS ---
PROVIDER RESPONSE TEXT: To clarify, the appropriate diagnosis supported by the clinical indicators: Pressure (decubitus) ulcer, DTI coccyx: Coccyx DTI QUERY TEXT: PHYSICIAN'S DOCUMENTATION REQUEST Date of Query: 06/19/2024 01:04 PM EDT Patient Name: Robb Rene Admit Date: 06/17/2024 Dear Gurpreet Gaspar MD, A review of the medical record indicates additional documentation may be needed. Please review below and update the documentation accordingly. Clinical Indicators: Per Wound Note 06/18/24: Coccyx: Deep tissue Injury Present on Admission Off Load Pressure and Triad to protect from friction and moisture Based on the above, could you please provide further information regarding the ulcer/wound: Diabetic ulcer Please specify the location and laterality of the ulcer/wound Venous stasis ulcer Please specify the location and laterality of the ulcer/wound Arterial (ischemic) ulcer Please specify the location and laterality of the ulcer/wound Pressure (decubitus) ulcer, DTI coccyx Please include the stage of the ulcer and specify the location and laterality of the ulcer/wound Traumatic wound Please specify the location and laterality of the ulcer/wound Non-healing surgical wound Please specify the location and laterality of the ulcer/wound Other (explain) Clinically unable to determine (explain) Thank you, Nadya Carrington RN Use of terms such as suspected, likely, concern for, or probable (associated with a specific diagnosi s that is being evaluated, monitored, or treated as if it exists) are acceptable and can be coded in the inpatient se tting, when documented at the time of discharge. Please use your independent medical judgment in providing your response. THIS QUERY IS PART OF THE PERMANENT MEDICAL RECORD
[2024-06-19 14:37] LABS: Vancomycin Random 14.4 mcg/mL (15-20)
--- NOTE | 2024-06-19 14:50 | HE.PHANOTE ---
Re Vanc Trough returned at 14.4, with current renal function it is estimated to be 19.1 at steady state with an AUC of 620 mg/L. Will reduce to 1000 mg Q24H for a projected AUC of 503 mg/L and trough of 15.4 mg/L.
--- NOTE | 2024-06-19 15:29 | HO.WOUND ---
Wound Consult:Follow up 63yr old?male admitted to [facility] on 06/16/24 recently transitions to ICU level of care. - See progress notes and H&P for detailed history.? Wound consult follow up for coccyx wound POA.? Unable to asses wound at time of arrival to bedside. Direct care nurse reports triad and foam applied and off loading pressure, PATRICIA mattress observed in place, Heel off loading boots in place. Photo review and chart review will assess in person at future date and time. Photo from 06/18/24 Coccyx Etiology: ?Deep tissue Injury ?Present on Admission Wound Bed: nonblanchable dark purple tissue over bony coccyx Drainage / Odor: None Edges: ? Linear Kim wound: ? [place] red tissue Goals of Treatment: ? Off Load Pressure and Triad to protect from friction and moisture Recommendations: 1. Turn and Reposition every 2 hours and as needed for patient comfort.? Use pillows or wedges to support off loading positions. 2. Off Load all bony prominences with use of pillows and heel boots if needed.? Apply Preventative foams where needed. ? 3. Monitor for incontinence and moisture control, use barrier creams when needed for prevention and treatment. 4. Provide adequate and supplemental nutrition.? 5. Order low air loss mattress. 6. When applicable maintain blood glucose levels per Providers order. 7. Coccyx - Off Load Pressure - Off Load Pressure? - Cleanse with PH balance spray or wipes, pat dry. ?Apply thin layer of Triad to wound bed. Do not remove all of paste between applications as this may cause further skin damage.? Cover with foam dressing to aid in off loading and protection from friction. Change every 3 days and PRN. Re-consult wound care Nurse for wound deterioration or wound changes.
[2024-06-19] MEDS: vancomycin HCL 1,000 MG in 0.9 % Sodium Chloride 250 ML 270 MG IV (16:46)
--- NOTE | 2024-06-19 17:08 | P.CNID_ITS ---
History of Present Illness Data of Consult Service Date: 06/18/24 Requesting physician: Freddy Jaime Primary Care Provider: Galileo Livingston MD HPI Reason for consult: left lung infiltrate He presents with altered mental state. He was found to have lithium toxicity and dehydration. He has no fever or chills. He has had elevated WBC. Review of Systems 2 Review of Systems: Yes Unobtainable due to mental condition PMFSH Past Medical History Medical History Hypercalcemia due to lithium Non-toxic multinodular goiter Vitamin D deficiency 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 Encounter for general adult medical examination with abnormal findings Alcoholic liver disease Schizoaffective disorder Depression, major, recurrent (Unknown) Thrombocytosis Obesity Tobacco abuse BPH (benign prostatic hyperplasia) COPD (chronic obstructive pulmonary disease) Lipid disorder Chronic GERD Hypothyroidism Family History Family History Father HTN (hypertension) CVD (cardiovascular disease) Sister AIDS Maternal Grandfather Unknown family medical history Maternal Grandmother Unknown family medical history Paternal Grandfather Unknown family medical history Paternal Grandmother Unknown family medical history Sister No problems noted. Sister No problems noted. Sister No problems noted. Family history: reviewed and not pertinent Surgical History Surgical History History of surgery History of hernia repair Social History Social History Household Members: None Housing: Unknown / Unable to assess Are you a primary primary care coordinator to a significant other at home: No Do you presently have visiting nurse or other home services: Yes Alcohol intake: former Comment: restraints Patient Tobacco Use Status: Tobacco use Unknown Tobacco use type: Cigar Cigarette Packs Per Day: 1 e-Cigarette/Vaping Use: Never Used Substance Use Type: Marijuana Advance Directives Date on File: 08/16/22 service: No Current occupational status: disabled Cognitive needs: No Hearing needs: No Vision needs: No Meds Allergies Allergy/AdvReac Type Severity Reaction Status Date / Time atorvastatin [From LIPITOR] Allergy Unknown HIGH LFTS Verified 06/16/24 18:47 Active Medications: Current Medications Acetaminophen (Acetaminophen 325 Mg Tablet) 650 mg PO Q6H PRN PRN Reason: Pain, Mild (Pain Scale 1-3), fever or headache Amlodipine Besylate (Amlodipine Besylate 5 Mg Tablet) 5 mg PO BEDTIME [facility]; Protocol Last Admin: 06/17/24 20:43 Dose: Not Given Benztropine Mesylate (Benztropine Mesylate 1 Mg Tablet) 1 mg PO DAILY [facility] Last Admin: 06/19/24 08:29 Dose: 1 mg Calcitonin [place] (Calcitonin,[place],Synth Nasal 3.7 Ml Bottle) 1 spray NOSTRILALT DAILY [facility] Last Admin: 06/19/24 08:30 Dose: 1 spray Chlorhexidine Gluconate (Chlorhexidine Gluc Oral Rinse 15 Ml Mouthwash) 15 ml BUCCAL TID [facility] Last Admin: 06/19/24 15:36 Dose: 15 ml Ezetimibe (Ezetimibe 10 Mg Tablet) 10 mg PO DAILY [facility] Last Admin: 06/18/24 11:11 Dose: Not Given Enoxaparin Sodium (Enoxaparin Sodium 60 Mg/0.6 Ml Syringe) 60 mg 1 mg/kg (60 mg) SUBCUT Q12H [facility] Last Admin: 06/19/24 15:35 Dose: 60 mg Ferrous Sulfate (Ferrous Sulfate 324 Mg Tablet.Dr) 324 mg PO DAILY [facility] Last Admin: 06/18/24 11:11 Dose: Not Given Piperacillin Sod/Tazobactam (Sod 4.5 gm/ Sodium Chloride) 100 mls @ 200 mls/hr IV Q6H [facility] Last Infusion: 06/19/24 16:47 Dose: Infused Dextrose (D5w) 1,000 mls @ 150 mls/hr IVCONT .Q6H40M [facility] Last Admin: 06/19/24 15:41 Dose: 150 mls/hr Levetiracetam 250 mg/ Sodium (Chloride) 102.5 mls @ 410 mls/hr IV BID [facility] Last Infusion: 06/19/24 09:12 Dose: Infused Propofol (Diprivan) 1,000 mg in 100 mls @ 0 mls/hr IVCONT .Q0M [facility]; Protocol Last Titration: 06/19/24 09:47 Dose: Infused Norepinephrine Bitartrate (Levophed) 8 mg in 250 mls @ 0 mls/hr IVCONT .Q0M [facility]; Protocol Last Titration: 06/19/24 07:43 Dose: 0.02 mcg/kg/min, 3.24 mls/hr Vancomycin HCl 1,000 mg/ (Sodium Chloride) 270 mls @ 270 mls/hr IV Q24H [facility] Last Admin: 06/19/24 16:46 Dose: 270 mls/hr Levothyroxine Sodium (Levothyroxine Sodium 112 Mcg Tablet) 112 mcg PO DAILY@0600 [facility] Last Admin: 06/19/24 05:45 Dose: 112 mcg Magnesium Hydroxide (Milk Of Magnesia 30 Ml Oral.Susp) 30 ml PO DAILY PRN PRN Reason: Constipation Melatonin (Melatonin 3 Mg Tablet) 6 mg PO BEDTIME PRN PRN Reason: Insomnia Metoprolol Tartrate (Metoprolol Tartrate 25 Mg Tablet) 25 mg PO BID [facility]; Protocol Last Admin: 06/19/24 09:12 Dose: Not Given Multivitamins/Vitamin C (Multivitamin Tablet) 1 tab PO DAILY [facility] Last Admin: 06/18/24 11:11 Dose: Not Given Naltrexone HCl (Naltrexone Hcl 50 Mg Tablet) 50 mg PO DAILY [facility] Last Admin: 06/19/24 08:29 Dose: 50 mg Non-Formulary Medication (Dutasteride) 0.5 mg PO BEDTIME [facility] Non-Formulary Medication (Fluticasone Propionate) 2 puff INHALE BID [facility] Non-Formulary Medication (Risperidone Microspheres) 50 mg IM Q14D [facility] Nystatin (Nystatin Powder 15 Gm Bottle) 1 appl TOPICAL BID [facility]; Protocol Last Admin: 06/19/24 16:42 Dose: Not Given Ondansetron HCl (Ondansetron Hcl 4 Mg/2 Ml Vial) 4 mg IVPUSH Q8H PRN PRN Reason: Nausea and Vomiting Pantoprazole Sodium (Pantoprazole Sodium 40 Mg/10 Ml Vial) 40 mg IVPUSH DAILY@0630 [facility] Last Admin: 06/19/24 05:45 Dose: 40 mg Paroxetine HCl (Paroxetine Hcl 40 Mg Tablet) 40 mg PO BEDTIME [facility] Last Admin: 06/17/24 20:44 Dose: Not Given Pharmacy Consult (Consult Rx Vancomycin Dosing) 1 each MISCELLANE DAILY PRN PRN Reason: Consult order Sodium Chloride (0.9 % Sodium Chloride Flush 3 Ml Syringe) 3 ml IVFLUSH QSHIFT [facility] Last Admin: 06/19/24 16:47 Dose: 3 ml Tamsulosin HCl (Tamsulosin Hcl 0.4 Mg Capsule) 0.8 mg PO BEDTIME [facility] Last Admin: 06/18/24 20:45 Dose: 0.8 mg Home Medications ?Medication ?Instructions ?Recorded ?Confirmed ?Last Taken ?Type paroxetine HCl 40 mg tablet (Paxil) 40 mg PO BEDTIME 07/15/20 06/17/24 Unknown History risperidone microspheres 50 mg/2 50 mg IM Q2W 07/15/20 06/17/24 Unknown History mL intramuscular susp,ext release benztropine 1 mg tablet 1 mg PO DAILY 03/17/21 06/17/24 Unknown History lithium carbonate 300 mg capsule 300 mg PO BID 12/14/21 06/17/24 Unknown History amlodipine 5 mg tablet 5 mg PO BEDTIME 06/17/24 06/17/24 Unknown History dutasteride 0.5 mg capsule 0.5 mg PO BEDTIME 06/17/24 06/17/24 Unknown History ferrous sulfate 325 mg (65 mg 325 mg PO DAILY 06/17/24 06/17/24 Unknown History iron) tablet (Iron (ferrous sulfate)) fluticasone propionate 44 2 puff inhalation BID 06/17/24 06/17/24 Unknown History mcg/actuation HFA aerosol inhaler levothyroxine 112 mcg tablet 112 mcg PO DAILY@0606/17/24 06/17/24 Unknown History naltrexone 50 mg tablet 50 mg PO DAILY 06/17/24 06/17/24 Unknown History omeprazole 20 mg capsule,delayed 20 mg PO DAILY@0630 06/17/24 06/17/24 Unknown History release tamsulosin 0.4 mg capsule (Flomax) 0.8 mg PO BEDTIME 06/17/24 06/17/24 Unknown History Physical Exam 2 Vital Signs: Vital Signs: Last Vital Signs Temp 98.6 F 06/19/24 16:00 Pulse 72 06/19/24 16:00 Resp 12 06/19/24 16:00 BP 123/58 L 06/19/24 16:00 Pulse Ox 96 06/19/24 16:00 O2 Del Method Mechanical Ventil ation 06/19/24 16:00 O2 Flow Rate 15 06/18/24 20:59 FiO2 30 06/19/24 16:00 BMI result Body Mass Index 27.4 Const: General: cooperative HEENT: Head: Yes normal to inspection Face and sinus: Yes normal facial exam Mouth: Normal oral and palatal mucosa present Teeth and gingiva: d entition normal Eyes: General: appearance normal, both eyes and all related structures P upils: Equal, round and reactive pupils present Resp: Effort & Inspection: normal respiratory effort Cardio: Rate: regular rate Rhythm: regular rhythm GI: Palpation (GI): Soft to palpation and nontender : General: Yes no CVA tenderness Back/Spine/Pelvis: Back: no CVA tenderness Skin: General skin exam: no rashes or lesions noted Neuro: Other: somnolent General: moves all extremities Cranial nerves: Yes Equal, round and reactive pupils present Extrem: General: Yes normal to inspection Psych: Appearance: grossly normal Results Labs 06/19/24 05:23 06/19/24 10:20 Labs: Short CBC 06/18/24 06/19/24 Range/Units 19:54 05:23 WBC 21.8 H 33.5 H* (4.8-10.8) X10*3/uL Hgb 14.9 14.3 (14.0-18.0) g/dl Hct 44.9 43.2 (42.0-52.0) % Plt Count 235 267 (160-400) X10*3/uL BMP 06/18/24 06/18/24 06/18/24 16:43 19:54 23:45 Sodium 159 H 158 H 151 H Potassium 3.5 3.5 3.9 Chloride 129 H 131 H 125 H Carbon Dioxide 21 L 19 L 18 L BUN 24 H 25 H 26 H Creatinine 1.44 H 1.26 1.53 H Calcium 11.4 H 11.3 H 10.7 H 06/19/24 06/19/24 05:23 10:20 Sodium 151 H 151 H Potassium 4.5 4.3 Chloride 123 H 124 H Carbon Dioxide 16 L 18 L BUN 25 H 25 H Creatinine 1.55 H 1.51 H Calcium 10.7 H 10.7 H Cardiac Enzymes 06/18/24 Range/Units 10:27 Total Creatine Kinase 74 (38-174) U/L Liver Function 06/18/24 06/18/24 06/19/24 Range/Units 16:43 19:54 05:23 Total Bilirubin 1.3 H 1.4 H (0.0-1.0) mg/dL Direct Bilirubin 0.7 H (0.0-0.5) mg/dL AST 19 26 (5-37) U/L ALT 12 13 (0-40) U/L Alkaline Phosphatase 101 89 (39-117) U/L Albumin 3.9 3.8 3.5 (3.5-5.0) g/dL Microbiology Microbiology Results: Microbiology 06/17/24 15:03 Blood - Venous Blood Culture - Preliminary No growth after 24 hours. 06/17/24 15:03 Blood - Venous Blood Culture - Preliminary No growth after 24 hours. Assessment and Plan (1) Pneumonia: Status: Acute (2) Acute hypoxic respiratory failure: Status: Acute Plan Possible aspiration On Vancomycin and Zosyn so should stop Vancomycin if MRSA nares positive. Duration 5-7 d IV abx likely. If not improving Doxycycline 100 mg bid and check Legionella
[2024-06-19 18:52] LABS: Anion Gap 12 (12-20); Blood Urea Nitrogen 23 mg/dL (9-16); Calcium 9.9 mg/dL (8.4-10.2); Carbon Dioxide 17 mmol/L (22-29); Chloride 125 mmol/L (96-108); Creatinine Clr Calc Pharmacy 56.7; Estimated Glomerular Filt Rate 53; Glucose Random 129 mg/dL (60-115); Potassium 3.9 mmol/L (3.3-5.1); Sodium 150 mmol/L (135-145)
[2024-06-19] MEDS: propofoL 1,000 MG/100 ML VIAL 5.19 MG IVCONT (20:43)
[2024-06-19] MEDS: Norepinephrine Bitartrate/D5W 8 MG/250 ML PLAST..BAG 8.11 MG IVCONT (21:45)
--- NOTE | 2024-06-19 21:59 | PM.EVENT ---
Documented by User: Zach Harrington NP 06/19/24 22:00 Event Note Date of Service: 06/19/24 Event Note: Hypotension due to sedation for vent synchrony Time Spent With Patient Time: Total time managing care of this patient today ____ minutes. Documented by User: Gurpreet Gaspar MD 06/20/24 11:09 Event Note Date of Service: 06/20/24
[2024-06-19] MEDS: DOPamine HCL/D5W 400 MG/250 ML PLAST..BAG 16.22 MG IVCONT (22:07)
[2024-06-19] MEDS: Nystatin Powder 15 GM BOTTLE 1 APPL TOPICAL (22:10)
[2024-06-20] VITALS (37 sets, daily range): BP systolic 92–168; BP diastolic 44–70; PULSE 48–100; RESP 15–25; TEMP 36.3–37.1; O2SAT 92–99; BMI 29.8
[2024-06-20] MEDS: Piperacillin Sodium/Tazobactam 4.5 GM in 0.9 % Sodium Chloride 100 ML IV ×2 (02:09→09:47)
[2024-06-20] MEDS: Enoxaparin Sodium 60 MG/0.6 ML SYRINGE SUBCUT ×2 (02:10→14:18)
[2024-06-20] MEDS: propofoL 1,000 MG/100 ML VIAL 10.38 MG IVCONT (04:07)
[2024-06-20] MEDS: Dextrose 5 % 1,000 ML 150 ML IVCONT (05:17)
[2024-06-20 05:29] LABS: VBG Base Excess -5.3 mmol/L; VBG HCO3 16 mmol/L (22-26); VBG pCO2 24 mmHg; VBG pH 7.44 (7.32-7.43); VBG pO2 50 mmHg
[2024-06-20 05:35] LABS: Venous Blood Gas Refer to POC result
[2024-06-20] MEDS: Levothyroxine Sodium 112 MCG TABLET PO (05:37)
[2024-06-20] MEDS: Pantoprazole Sodium 40 MG/10 ML VIAL IVPUSH (05:37)
[2024-06-20 05:40] LABS: Basophils Absolute Auto 0.1 X10*3/uL (0.0-0.2); Basophils Percent Auto 0.3 % (0-2); Eosinophils Absolute Auto 0.8 X10*3/uL (0.0-0.4); Eosinophils Percent Auto 4.2 % (0-4); Hematocrit 44.9 % (42.0-52.0); Hemoglobin 14.4 g/dl (14.0-18.0); Imm Gran Abs Auto 0.07 X10*3/uL (0.00-0.03); Imm Gran Pct Auto 0.4 % (0.0-0.4); Lymphocytes Absolute Auto 8.9 X10*3/uL (1.2-4.9); Lymphocytes Percent Auto 49.6 % (20-40); MANUAL DIFF FLAG SCAN; Mean Corpuscular HGB Conc 32.1 g/dl (31.0-36.0); Mean Corpuscular Hemoglobin 30.3 pg (27.0-33.0); Mean Corpuscular Volume 94.3 fL (80.0-98.0); Mean Platelet Volume 9.6 fL (9.4-12.4); Monocytes Absolute Auto 0.9 X10*3/uL (0.1-1.2); Monocytes Percent Auto 4.9 % (2-11); Neutrophils Absolute Auto 7.3 x10*3/uL (2.0-8.3); Neutrophils Percent Auto 40.6 % (45-73); Platelet Count 168 X10*3/uL (160-400); Red Blood Count 4.76 X10*6/uL (4.60-5.80); Red Cell Distribution Width 14.8 % (11.0-16.0); SCAN SMEAR FLAG 1
[2024-06-20 06:03] LABS: Albumin Level 3.6 g/dL (3.5-5.0); Anion Gap 13 (12-20); Blood Urea Nitrogen 20 mg/dL (9-16); Calcium 10.9 mg/dL (8.4-10.2); Carbon Dioxide 18 mmol/L (22-29); Chloride 120 mmol/L (96-108); Creatinine Clr Calc Pharmacy 62.4; Estimated Glomerular Filt Rate 53; Glucose Random 160 mg/dL (60-115); Magnesium 2.1 mg/dL (1.6-2.6); Phosphorus 1.7 mg/dL (2.7-4.5); Potassium 3.2 mmol/L (3.3-5.1); Sodium 148 mmol/L (135-145)
--- NOTE | 2024-06-20 08:52 | P.PNNP_ITS ---
Subjective Subjective Date of Service: 06/20/24 Interval history: 63-year-old gentleman with underlying CLL, hypertension, COPD, schizoaffective, alcoholic hepatitis, on chronically lithium therapy admitted on 06/16/2024 with alteration of mental status deemed to be secondary to lithium toxicity. Patient was also noted to have hypercalcemia with hyponatremia and hyperparathyroidism, IV fluids and calcinet for management. mental status has worsened and he was transferred to the ICU overnight (06/18), pulmonary aspiration requiring ventilatory support. he requires pressor support but has been titrating down. hypernatremia has improved to 148 (down from 150 yesterday). continues wtih LR at 125mL/hr creatinine down from 1.53 yesterday to 1.36 this morning potassium 3.2 this a.m. (3.9 yesterday). IV potassium replacement administered. calcium 10.9, continues with IV fluids pt is somnolent at bedside, does not respond to verbal or touch stimuli (currently sedated/intubated). Physical Exam 2 Vital Signs: Vital Signs: Last Vital Signs Temp 98.6 F 06/20/24 08:00 Pulse 58 06/20/24 08:00 Resp 20 06/20/24 08:00 BP 147/61 H 06/20/24 08:00 Pulse Ox 99 06/20/24 08:00 O2 Del Method Mechanical Ventil ation 06/20/24 08:00 O2 Flow Rate 15 06/18/24 20:59 FiO2 30 06/20/24 08:00 BMI result Body Mass Index 29.8 Const: General: comfortable and no acute distress O rientation/consciousness: Other orientation findings (sedated) Neck: Neck: Yes supple Resp: Auscultation: rhonchi (bilateral rhonchi.) Cardio: Jugular venous distension: no JVD Rate: regular rate Heart sounds: Murmur heart sound present GI: Palpation (GI): Soft to palpation : Other: carlton in place Skin: General skin exam: no rashes or lesions noted Neuro: Other: sedated/intubated, not responsive to verbal or touch stimuli. Extrem: General: Yes no pedal edema Objective Data Labs 06/20/24 05:15 06/20/24 05:15 Labs: Laboratory Results - last 24 hr 06/19/24 06/19/24 06/19/24 10:20 14:12 18:27 WBC RBC Hgb Hct MCV MCH MCHC RDW Plt Count MPV Immature Gran % (Auto) Neut % (Auto) Lymph % (Auto) [place] % (Auto) Eos % (Auto) Baso % (Auto) Lymph # (Auto) [place] # (Auto) Eos # (Auto) Baso # (Auto) Abs Immat Gran (auto) Absolute Neuts (auto) Absolute Nucleated RBC Nucleated RBC % (auto) VBG pH VBG pCO2 VBG pO2 VBG HCO3 VBG O2 Saturation VBG Base Excess Sodium 151 H 150 H Potassium 4.3 3.9 Chloride 124 H 125 H Carbon Dioxide 18 L 17 L Anion Gap 13 12 BUN 25 H 23 H Creatinine 1.51 H 1.34 Estim Creat Clear Calc 50.3 56.7 Estimated GFR 47 53 Random Glucose 143 H 129 H Calcium 10.7 H 9.9 D Phosphorus Magnesium Albumin Random Vancomycin 14.4 L 06/20/24 06/20/24 05:15 05:20 WBC 18.0 H RBC 4.76 Hgb 14.4 Hct 44.9 MCV 94.3 MCH 30.3 MCHC 32.1 RDW 14.8 Plt Count 168 D MPV 9.6 Immature Gran % (Auto) 0.4 Neut % (Auto) 40.6 L Lymph % (Auto) 49.6 H [place] % (Auto) 4.9 Eos % (Auto) 4.2 H Baso % (Auto) 0.3 Lymph # (Auto) 8.9 H [place] # (Auto) 0.9 Eos # (Auto) 0.8 H Baso # (Auto) 0.1 Abs Immat Gran (auto) 0.07 H Absolute Neuts (auto) 7.3 Absolute Nucleated RBC 0.000 Nucleated RBC % (auto) 0.0 VBG pH 7.44 H VBG pCO2 24 VBG pO2 50 VBG HCO3 16 L VBG O2 Saturation 87.0 VBG Base Excess -5.3 Sodium 148 H Potassium 3.2 L Chloride 120 H Carbon Dioxide 18 L Anion Gap 13 BUN 20 H Creatinine 1.36 Estim Creat Clear Calc 62.4 Estimated GFR 53 Random Glucose 160 H Calcium 10.9 H D Phosphorus 1.7 L Magnesium 2.1 Albumin 3.6 Random Vancomycin Microbiology Microbiology Results: Microbiology 06/17/24 15:03 Blood - Venous Blood Culture - Preliminary No growth after 48 hours. 06/17/24 15:03 Blood - Venous Blood Culture - Preliminary No growth after 48 hours. Procedures Date of Service Date of Service: 06/20/24 Assessment & Plan Assessment and plan (1) Hypernatremia: Status: Acute (2) VALENCIA (acute kidney injury): Status: Acute (3) Altered mental status: Status: Acute (4) Hypercalcemia due to a drug: Status: Acute (5) Speculator toxicity: Status: Acute Plan initially had VALENCIA likely secondary to lithium toxicity, renal function improved, overnight VALENCIA likely secondary to hypoperfusion from aspiration pneumonia renal function is improving, creatinine trending down hypernatremia- improving, continue IV fluids elevated calcium and PTH levels likely due to primary hyperparathyroidism. Recommend continuing IV hydration and add cinacalcet 30mg PO daily when patient is able to take PO medication (Calcitonin spray ordered). potassium 3.2 this a.m. likely due to urine loss (diuresis from lithium). Continue to monitor and replace PRN. recommend neutrophos IV if unable to take PO for low phosphorous levels recommend following intake and output closely, in addition to blood pressures avoid hypotension avoid nephrotoxic substances/medications Discussed with Dr Shields Time Spent With Patient Time: Total time managing care of this patient today ____ minutes. Progress Note: Quality Stroke Does the patient have a stroke diagnosis?: No
[2024-06-20] MEDS: DOPamine HCL/D5W 400 MG/250 ML PLAST..BAG 16.22 MG IVCONT (09:06)
[2024-06-20 09:34] LABS: SLIDE REVIEW VERIFIED
--- NOTE | 2024-06-20 09:36 | MHC.CM.PN ---
Pt continues care in ICU: has been off sedation and plans are to extubate today. Pt will likely need STR/LTC following his hospitalization d/t progressive and longstanding decline and inability to remain in [facility] apartment without 24 hr supervision/care. This information came from his [facility] integrated logistics programs director, Danica. Pt will need evals for placement and may require activation of his HCP. CM to follow.
[2024-06-20] MEDS: Potassium Phosphate/NS 15 MMOL/250 ML PLAST..BAG 62.5 MMOL IV (09:51)
[2024-06-20] MEDS: Benztropine Mesylate 1 MG TABLET PO (09:52)
[2024-06-20] MEDS: levETIRAcetam 250 MG in 0.9 % Sodium Chloride 100 ML 410 MG IV (09:52)
[2024-06-20] MEDS: Naltrexone HCl 50 MG TABLET PO (09:52)
[2024-06-20] MEDS: Nystatin Powder 15 GM BOTTLE 1 APPL TOPICAL ×2 (09:52→21:50)
[2024-06-20] MEDS: Calcitonin,Salmon,Synth Nasal 3.7 ML BOTTLE 1 SPRAY NOSTRILALT (09:53)
--- NOTE | 2024-06-20 11:09 | P.PNCC_ITS ---
Subjective Subjective Date of Service: 06/20/24 Interval History: 63-year-old gentleman with underlying CLL, hypertension, COPD, schizoaffective, alcoholic hepatitis, on chronically lithium therapy admitted on 06/16/2024 with alteration of mental status deemed to be secondary to lithium toxicity. Patient was also noted to have hypercalcemia with hyponatremia and hyperparathyroidism. He was evaluated by nephrology service and started on calcitonin and IV fluids. Hospital course significant for worsening hypernatremia and worsening alteration of mental status requiring transfer to intensive care unit on 06/18/2024, also with pulmonary aspiration requiring intubation and ventilatory support. Extubated uneventfully on 06/20/2024. No events overnight. Critical Care Time (minutes): 60 Physical Exam 2 Vital Signs: Vital Signs: Last Vital Signs Temp 98.6 F 06/20/24 08:00 Pulse 64 06/20/24 11:00 Resp 18 06/20/24 11:00 BP 168/60 H 06/20/24 11:00 Pulse Ox 95 06/20/24 11:00 O2 Del Method Nasal Cannula 06/20/24 11:00 O2 Flow Rate 2 06/20/24 11:00 FiO2 30 06/20/24 08:51 BMI result Body Mass Index 29.8 Const: General: no acute distress, alert and awake Eyes: Sclerae: sclerae normal EOM: EOMs intact bilaterally Neck: Neck: Yes no lymphadenopathy, Yes trachea midline and Yes supple Resp: Effort & Inspection: normal respiratory effort and no respiratory distress Auscultation: clear to auscultation bilaterally Cardio: Rate: regular rate Rhythm: regular rhythm Heart sounds: no gallops, no murmurs and no rubs GI: Palpation (GI): Soft to palpation and Other GI palpation findings present ( Nontender) Auscultation: normal bowel sounds Extrem: General: Yes no pedal edema, No clubbing and No cyanosis Objective Data Labs 06/20/24 05:15 06/20/24 05:15 Labs: Laboratory Results - last 24 hr 06/19/24 06/19/24 06/20/24 14:12 18:27 05:15 WBC 18.0 H RBC 4.76 Hgb 14.4 Hct 44.9 MCV 94.3 MCH 30.3 MCHC 32.1 RDW 14.8 Plt Count 168 D MPV 9.6 Immature Gran % (Auto) 0.4 Neut % (Auto) 40.6 L Lymph % (Auto) 49.6 H [place] % (Auto) 4.9 Eos % (Auto) 4.2 H Baso % (Auto) 0.3 Lymph # (Auto) 8.9 H [place] # (Auto) 0.9 Eos # (Auto) 0.8 H Baso # (Auto) 0.1 Abs Immat Gran (auto) 0.07 H Absolute Neuts (auto) 7.3 Absolute Nucleated RBC 0.000 Nucleated RBC % (auto) 0.0 Smear Tech's Comments VERIFIED VBG pH VBG pCO2 VBG pO2 VBG HCO3 VBG O2 Saturation VBG Base Excess Sodium 150 H 148 H Potassium 3.9 3.2 L Chloride 125 H 120 H Carbon Dioxide 17 L 18 L Anion Gap 12 13 BUN 23 H 20 H Creatinine 1.34 1.36 Estim Creat Clear Calc 56.7 62.4 Estimated GFR 53 53 Random Glucose 129 H 160 H Calcium 9.9 D 10.9 H D Phosphorus 1.7 L Magnesium 2.1 Albumin 3.6 Random Vancomycin 14.4 L 06/20/24 05:20 WBC RBC Hgb Hct MCV MCH MCHC RDW Plt Count MPV Immature Gran % (Auto) Neut % (Auto) Lymph % (Auto) [place] % (Auto) Eos % (Auto) Baso % (Auto) Lymph # (Auto) [place] # (Auto) Eos # (Auto) Baso # (Auto) Abs Immat Gran (auto) Absolute Neuts (auto) Absolute Nucleated RBC Nucleated RBC % (auto) Smear Tech's Comments VBG pH 7.44 H VBG pCO2 24 VBG pO2 50 VBG HCO3 16 L VBG O2 Saturation 87.0 VBG Base Excess -5.3 Sodium Potassium Chloride Carbon Dioxide Anion Gap BUN Creatinine Estim Creat Clear Calc Estimated GFR Random Glucose Calcium Phosphorus Magnesium Albumin Random Vancomycin Microbiology Microbiology Results: Microbiology 06/17/24 15:03 Blood - Venous Blood Culture - Preliminary No growth after 48 hours. 06/17/24 15:03 Blood - Venous Blood Culture - Preliminary No growth after 48 hours. Progress Note: A&P Assessment and plan (1) Nephrogenic diabetes insipidus: Status: Acute (2) [place] toxicity: Status: Acute (3) VALENCIA (acute kidney injury): Status: Acute (4) Hypernatremia: Status: Acute (5) Hypercalcemia due to a drug: Status: Acute Plan Assessment: 63-year-old gentleman with underlying schizoaffective and depressive disorder on lithium therapy admitted with alteration of mental status with lithium toxicity resulting in nephrogenic diabetes insipidus with hypernatremia, hypercalcemia, and alteration of mental status, further complicated by pulmonary aspiration and acute hypoxic respiratory failure requiring ventilatory support. Plan: Neuro: Metabolic encephalopathy secondary to hypernatremia, improving. ?Partial seizures, continues on Keppra, with no recurrence. Cardiac: No acute issues. Pulmonary: Acute hypoxic respiratory failure secondary to pulmonary aspiration secondary to metabolic encephalopathy, resolved. Extubated uneventfully on 06/20/2024. Renal: Acute renal failure, nephrogenic diabetes insipidus, hypernatremia, hypercalcemia secondary to lithium toxicity. Nephrology service care appreciated. Hypernatremia, diabetes insipidus, and hypercalcemia are improving. Continue to monitor electrolytes. Endo: No acute issues. GI: No acute issues. ID: No acute issues. Heme/Onc: No acute issues. Psych: No acute issues. Underlying schizoaffective disorder and major depressive disorder. Miscellaneous: No acute issues. Prophylaxis: Lovenox Diet: Pending swallow evaluate Critical care time spent: 60 minutes Quality Stroke Does the patient have a stroke diagnosis?: No VTE Prior VTE?: No VTE Risk Level:: Medical - moderate - high VTE Device Contraindication: Treatment Not Indicated VTE Drug Contraindication: N/A - Med Ordered
[2024-06-20] MEDS: 0.9 % Sodium Chloride Flush 3 ML SYRINGE IVFLUSH ×2 (14:20→21:50)
--- NOTE | 2024-06-20 14:30 | MHC.SLORD ---
Speech Language Pathology Order Status: Patient extubated 06/20/24 a.m. PHILANTHROPY OFFICER will assess swallow 06/21/24 a.m. secondary to protocol of 24 hr post extubation.
[2024-06-20 14:40] LABS: Anion Gap 12 (12-20); Blood Urea Nitrogen 17 mg/dL (9-16); Calcium 10.5 mg/dL (8.4-10.2); Carbon Dioxide 21 mmol/L (22-29); Chloride 123 mmol/L (96-108); Creatinine Clr Calc Pharmacy 70.1; Estimated Glomerular Filt Rate > 60; Glucose Random 95 mg/dL (60-115); Potassium 3.7 mmol/L (3.3-5.1); Sodium 152 mmol/L (135-145)
[2024-06-20] MEDS: levETIRAcetam 250 MG in 0.9 % Sodium Chloride 100 ML 400 MG IV (21:48)
[2024-06-20] MEDS: Tamsulosin HCL 0.4 MG CAPSULE 0.8 MG PO (21:49)
[2024-06-20] MEDS: amLODIPine Besylate 5 MG TABLET PO (21:50)
[2024-06-21] VITALS (17 sets, daily range): BP systolic 109–144; BP diastolic 49–73; PULSE 45–69; RESP 14–20; TEMP 36.2–36.9; O2SAT 91–99; BMI 29.0
[2024-06-21] MEDS: Enoxaparin Sodium 60 MG/0.6 ML SYRINGE SUBCUT ×2 (03:00→14:10)
[2024-06-21 04:30] LABS: VBG Base Excess -3.3 mmol/L; VBG HCO3 20 mmol/L (22-26); VBG pCO2 32 mmHg; VBG pO2 48 mmHg
[2024-06-21 04:44] LABS: Basophils Absolute Auto 0.1 X10*3/uL (0.0-0.2); Basophils Percent Auto 0.4 % (0-2); Eosinophils Absolute Auto 0.4 X10*3/uL (0.0-0.4); Eosinophils Percent Auto 2.8 % (0-4); Hemoglobin 13.9 g/dl (14.0-18.0); Imm Gran Abs Auto 0.04 X10*3/uL (0.00-0.03); Imm Gran Pct Auto 0.3 % (0.0-0.4); Lymphocytes Percent Auto 58.4 % (20-40); MANUAL DIFF FLAG SCAN; Mean Corpuscular HGB Conc 32.3 g/dl (31.0-36.0); Mean Corpuscular Hemoglobin 30.3 pg (27.0-33.0); Mean Corpuscular Volume 93.7 fL (80.0-98.0); Mean Platelet Volume 9.5 fL (9.4-12.4); Monocytes Absolute Auto 0.6 X10*3/uL (0.1-1.2); Monocytes Percent Auto 4.2 % (2-11); Neutrophils Absolute Auto 4.6 x10*3/uL (2.0-8.3); Neutrophils Percent Auto 33.9 % (45-73); Platelet Count 198 X10*3/uL (160-400); Red Blood Count 4.59 X10*6/uL (4.60-5.80); Red Cell Distribution Width 15.1 % (11.0-16.0); SCAN SMEAR FLAG 1; White Blood Count 13.7 X10*3/uL (4.8-10.8)
[2024-06-21 05:08] LABS: Alanine Aminotransferase 14 U/L (0-40); Albumin Level 3.5 g/dL (3.5-5.0); Alkaline Phosphatase 99 U/L (39-117); Anion Gap 15 (12-20); Aspartate Amino Transferase 18 U/L (5-37); Bilirubin Total 0.9 mg/dL (0.0-1.0); Blood Urea Nitrogen 18 mg/dL (9-16); Calcium 10.4 mg/dL (8.4-10.2); Carbon Dioxide 18 mmol/L (22-29); Chloride 126 mmol/L (96-108); Creatinine Clr Calc Pharmacy 75.4; Estimated Glomerular Filt Rate > 60; Glucose Random 94 mg/dL (60-115); Magnesium 2.3 mg/dL (1.6-2.6); Phosphorus 2.8 mg/dL (2.7-4.5); Potassium 3.7 mmol/L (3.3-5.1); Sodium 155 mmol/L (135-145); Total Protein 6.4 g/dL (6.5-8.0)
[2024-06-21] MEDS: Levothyroxine Sodium 112 MCG TABLET PO (05:17)
[2024-06-21 05:25] LABS: SLIDE REVIEW VERIFIED
[2024-06-21] MEDS: Dextrose 5 % 1,000 ML 100 ML IVCONT (05:46)
[2024-06-21 05:47] LABS: Strep Pneumo Ag urine Not Detected (Not Detected)
--- NOTE | 2024-06-21 05:53 | PC.NURSE ---
CARE ASSUMED 7PM..AWAKE..ALERT..ORIENTED TO PERSON ONLY..CONVERSES... PER SHIFT REPORT PATIENT DRINKING WATER WITHOUT DIFFICULTY...BP STABLE..RESPIRATIONS EASY ON ROOM AIR...SANTAMARIA YELLOW URINEMONITOR S.BRADYCARDIA HR 46-48 ASLEEP...NSR HR 60'S-70'S AWAKE..ASYMPTOMATIC..PROVIDER AWARE...AM SODIUM LEVEL = 155 DESPITE DRINKING WATER FREQUENTLY OVERNIGHT..RESTARTED D5W 100 CC/HR PER NOV AT 05:45..DENIES DISCOMFORT....PULLED OUT 1 IV SITE AT ..REDIRECTABLE CAMERA PLACED IN ROOM FOR SAFETY..REMAINING 3 IV SITES WRAPPED FOR SAFETY
[2024-06-21 05:56] LABS: Venous Blood Gas Refer to POC result
[2024-06-21] MEDS: Calcitonin,Salmon,Synth Nasal 3.7 ML BOTTLE 1 SPRAY NOSTRILALT (08:23)
[2024-06-21] MEDS: Nystatin Powder 15 GM BOTTLE 1 APPL TOPICAL ×2 (08:23→20:48)
[2024-06-21] MEDS: 0.9 % Sodium Chloride Flush 3 ML SYRINGE IVFLUSH ×3 (08:24→20:47)
[2024-06-21] MEDS: Benztropine Mesylate 1 MG TABLET PO (09:40)
[2024-06-21] MEDS: Naltrexone HCl 50 MG TABLET PO (09:40)
--- NOTE | 2024-06-21 09:53 | P.PNNP_ITS ---
Subjective Subjective Date of Service: 06/21/24 Interval history: 63-year-old gentleman with underlying CLL, hypertension, COPD, schizoaffective, alcoholic hepatitis, on chronically lithium therapy admitted on 06/16/2024 with alteration of mental status deemed to be secondary to lithium toxicity. Patient was also noted to have hypercalcemia with hyponatremia and hyperparathyroidism, IV fluids and cinalcalet for management. Currently in the ICU for metabolic encephalopathy- extubated yesterday 06/20 and currently alert and conversant, remains confused. hypernatremia trending up (155 this a.m.) IVF increased, currently on D5W at 300mL/hr creatinine has continued to trend down, currently 1.11 this a.m. pt oriented to self and place, disoriented to time/situation urine output has increased 4147mL output over last 24 hours (carlton) reports he is breathing comfortably denies other concerns Physical Exam 2 Vital Signs: Vital Signs: Last Vital Signs Temp 97.3 F 06/21/24 08:00 Pulse 55 06/21/24 09:00 Resp 18 06/21/24 09:00 BP 138/52 L 06/21/24 09:00 Pulse Ox 95 06/21/24 09:00 O2 Del Method Room Air 06/21/24 09:00 O2 Flow Rate 2 06/21/24 01:00 FiO2 30 06/20/24 08:51 BMI result Body Mass Index 29.0 Const: General: alert Orientation/consciousness: oriented to person, oriented to place and No oriented to time HEENT: Mouth: moist mucous membranes abnormal (dry mucous membranes) Neck: Neck: Yes no JVD Resp: Effort & Inspection: normal respiratory effort Auscultation: rhonchi Cardio: Jugular venous distension: no JVD Rate: regular rate Heart sounds: S1 normal heart sound present GI: Palpation (GI): Soft to palpation and nontender : Other: carlton patent and in place General: Yes no CVA tenderness Back/Spine/Pelvis: Back: no CVA tenderness Skin: Lesions: no lesions Rashes: no rashes Neuro: General: oriented to person, oriented to place and No oriented to time Extrem: General: No edema Objective Data Labs 06/21/24 04:22 06/21/24 11:53 Labs: Laboratory Results - last 24 hr 06/17/24 06/20/24 06/21/24 18:06 14:09 04:19 WBC RBC Hgb Hct MCV MCH MCHC RDW Plt Count MPV Immature Gran % (Auto) Neut % (Auto) Lymph % (Auto) [place] % (Auto) Eos % (Auto) Baso % (Auto) Lymph # (Auto) [place] # (Auto) Eos # (Auto) Baso # (Auto) Abs Immat Gran (auto) Absolute Neuts (auto) Absolute Nucleated RBC Nucleated RBC % (auto) Smear Tech's Comments VBG pH 7.40 VBG pCO2 32 VBG pO2 48 VBG HCO3 20 L VBG O2 Saturation 78.0 VBG Base Excess -3.3 Sodium 152 H Potassium 3.7 Chloride 123 H Carbon Dioxide 21 L Anion Gap 12 BUN 17 H Creatinine 1.21 Estim Creat Clear Calc 70.1 Estimated GFR > 60 Random Glucose 95 Calcium 10.5 H Phosphorus Magnesium Total Bilirubin AST ALT Alkaline Phosphatase Total Protein Albumin Ur Strep pneumoniae Ag Not Detected 06/21/24 06/21/24 04:22 04:35 WBC 13.7 H RBC 4.59 L Hgb 13.9 L Hct 43.0 MCV 93.7 MCH 30.3 MCHC 32.3 RDW 15.1 Plt Count 198 MPV 9.5 Immature Gran % (Auto) 0.3 Neut % (Auto) 33.9 L Lymph % (Auto) 58.4 H [place] % (Auto) 4.2 Eos % (Auto) 2.8 Baso % (Auto) 0.4 Lymph # (Auto) 8.0 H [place] # (Auto) 0.6 Eos # (Auto) 0.4 Baso # (Auto) 0.1 Abs Immat Gran (auto) 0.04 H Absolute Neuts (auto) 4.6 Absolute Nucleated RBC 0.000 Nucleated RBC % (auto) 0.0 Smear Tech's Comments VERIFIED VBG pH VBG pCO2 VBG pO2 VBG HCO3 VBG O2 Saturation VBG Base Excess Sodium 155 H Potassium 3.7 Chloride 126 H Carbon Dioxide 18 L Anion Gap 15 BUN 18 H Creatinine 1.11 Estim Creat Clear Calc 75.4 Estimated GFR > 60 Random Glucose 94 Calcium 10.4 H Phosphorus 2.8 Magnesium 2.3 Total Bilirubin 0.9 AST 18 ALT 14 Alkaline Phosphatase 99 Total Protein 6.4 L Albumin 3.5 Ur Strep pneumoniae Ag Microbiology Microbiology Results: Microbiology 06/17/24 15:03 Blood - Venous Blood Culture - Preliminary No growth after 48 hours. 06/17/24 15:03 Blood - Venous Blood Culture - Preliminary No growth after 48 hours. Procedures Date of Service Date of Service: 06/21/24 Assessment & Plan Assessment and plan (1) Hypernatremia: Status: Acute (2) VALENCIA (acute kidney injury): Status: Acute (3) Altered mental status: Status: Acute (4) Hypercalcemia due to a drug: Status: Acute (5) [place] toxicity: Status: Acute Plan initially had VALENCIA likely secondary to lithium toxicity, renal function improved with discontinuation of lithium had subsequent VALENCIA likely secondary to hypoperfusion from aspiration pneumonia renal function continue to improve, creatinine trending downward and 1.1 currently hypernatremia- worsening likely secondary to 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 Recommend continuing IV hydration. May need cinacalcet 30mg PO daily, but shall continue to monitor and initiate later. Discussed with Dr Martin Time Spent With Patient Time: Total time managing care of this patient today ____ minutes. Progress Note: Quality Stroke Does the patient have a stroke diagnosis?: No
--- NOTE | 2024-06-21 09:56 | MHC.CLN ---
F/U PT EXTUBATED 06/20 DIET ADVANCED TO CARDIAC RECOMMEND ADDING ENSURE TID TO PROMOTE WOUND HEALING SUPPLEMENT TO PROVIDE 1050KCALS, 60G PROTEIN MONITOR PO INTAKE AND ENCOURAGE SUPPLEMENT
[2024-06-21] MEDS: Dextrose 5 % 1,000 ML 300 ML IVCONT (10:25)
--- NOTE | 2024-06-21 11:19 | MHC.SL.SWA ---
Speech Pathologist Impression: Risk of aspiration, Oral dysphagia Risk of Aspiration Due to: Hx of Recent Extubation Dysphasia Diet Status: Downgrade from regular solids to NDD3 Liquid Consistency and Strategies for Safe Swallow: Liquid Intake Recommendation: Thin Solid Food Consistency: Dietary Recommendations: Chopped/Advanced (NDD3) Additional Modifications to Solid Foods: No overt s/s of aspiration with intake of various textures. Note mildly prolonged period of mastication on harder solids likely d/t generalized weakness and edentulous status, good oral clearance otherwise noted. Recommend start on CHOPPED/ADVANCED (NDD3) diet for ease of mastication with THIN liquids and pills WHOLE with LIQUID. Patient attempts to feed himself, but has a tendency to drop utensils and cups. Direct supervision recommended at meal time, provide assistance as needed. Oral Medication Intake: Whole with Liquid Please contact the pharmacy regarding appropriate crushable or liquid drug formulations that are available whenever modified delivery is recommended. Compensatory Strategies and Precautions to be Taken for Safe Swallow: Sitting Upright (90 deg) Small Bites and Sips Alternate Liquids/Solids Rate of Ingestion Change Supervision While Eating and Drinking for Safe Swallow: Total Supervision (1:1) Swallowing Recommended Treatments: Compens. Strategy Educat. Recommendation for Speech: Inpatient Speech Therapy Comment: ELECTRIC STOVE INSTALLER will continue to follow to monitor tolerance of modified diet and re-assess for potential upgrade when appropriate. Frequency/Duration: M-F PRN Date Range for Service Req: Timeline to reassess: Valve Inspector Clinican/Clinical Fellow: No Supervisory Statement: I have reviewed and agree with the student/clinical fellow's documentation: N/A Speech Language Pathologist: Daisha Dumas M.A., CCC-ELECTRIC STOVE INSTALLER
--- NOTE | 2024-06-21 11:38 | P.PNCC_ITS ---
Subjective Subjective Date of Service: 06/21/24 Interval History: 63-year-old gentleman with underlying CLL, hypertension, COPD, schizoaffective, alcoholic hepatitis, on chronically lithium therapy admitted on 06/16/2024 with alteration of mental status deemed to be secondary to lithium toxicity. Patient was also noted to have hypercalcemia with hyponatremia and hyperparathyroidism. He was evaluated by nephrology service and started on calcitonin and IV fluids. Hospital course significant for worsening hypernatremia and worsening alteration of mental status requiring transfer to intensive care unit on 06/18/2024, also with pulmonary aspiration requiring intubation and ventilatory support. Extubated uneventfully on 06/20/2024. No events overnight. Critical Care Time (minutes): 0 Physical Exam 2 Vital Signs: Vital Signs: Last Vital Signs Temp 97.3 F 06/21/24 08:00 Pulse 60 06/21/24 11:00 Resp 18 06/21/24 11:00 BP 115/52 L 06/21/24 11:00 Pulse Ox 97 06/21/24 11:00 O2 Del Method Room Air 06/21/24 11:00 O2 Flow Rate 2 06/21/24 01:00 FiO2 30 06/20/24 08:51 BMI result Body Mass Index 29.0 Const: General: no acute distress, alert and awake Eyes: Sclerae: sclerae normal EOM: EOMs intact bilaterally Neck: Neck: Yes no lymphadenopathy, Yes trachea midline and Yes supple Resp: Effort & Inspection: normal respiratory effort and no respiratory distress Auscultation: clear to auscultation bilaterally Cardio: Rate: regular rate Rhythm: regular rhythm Heart sounds: no gallops, no murmurs and no rubs GI: Palpation (GI): Soft to palpation and Other GI palpation findings present ( Nontender) Auscultation: normal bowel sounds Extrem: General: Yes no pedal edema, No clubbing and No cyanosis Objective Data Labs 06/21/24 04:22 06/21/24 04:35 Labs: Laboratory Results - last 24 hr 06/17/24 06/20/24 06/21/24 18:06 14:09 04:19 WBC RBC Hgb Hct MCV MCH MCHC RDW Plt Count MPV Immature Gran % (Auto) Neut % (Auto) Lymph % (Auto) [place] % (Auto) Eos % (Auto) Baso % (Auto) Lymph # (Auto) [place] # (Auto) Eos # (Auto) Baso # (Auto) Abs Immat Gran (auto) Absolute Neuts (auto) Absolute Nucleated RBC Nucleated RBC % (auto) Smear Tech's Comments VBG pH 7.40 VBG pCO2 32 VBG pO2 48 VBG HCO3 20 L VBG O2 Saturation 78.0 VBG Base Excess -3.3 Sodium 152 H Potassium 3.7 Chloride 123 H Carbon Dioxide 21 L Anion Gap 12 BUN 17 H Creatinine 1.21 Estim Creat Clear Calc 70.1 Estimated GFR > 60 Random Glucose 95 Calcium 10.5 H Phosphorus Magnesium Total Bilirubin AST ALT Alkaline Phosphatase Total Protein Albumin Ur Strep pneumoniae Ag Not Detected 06/21/24 06/21/24 04:22 04:35 WBC 13.7 H RBC 4.59 L Hgb 13.9 L Hct 43.0 MCV 93.7 MCH 30.3 MCHC 32.3 RDW 15.1 Plt Count 198 MPV 9.5 Immature Gran % (Auto) 0.3 Neut % (Auto) 33.9 L Lymph % (Auto) 58.4 H [place] % (Auto) 4.2 Eos % (Auto) 2.8 Baso % (Auto) 0.4 Lymph # (Auto) 8.0 H [place] # (Auto) 0.6 Eos # (Auto) 0.4 Baso # (Auto) 0.1 Abs Immat Gran (auto) 0.04 H Absolute Neuts (auto) 4.6 Absolute Nucleated RBC 0.000 Nucleated RBC % (auto) 0.0 Smear Tech's Comments VERIFIED VBG pH VBG pCO2 VBG pO2 VBG HCO3 VBG O2 Saturation VBG Base Excess Sodium 155 H Potassium 3.7 Chloride 126 H Carbon Dioxide 18 L Anion Gap 15 BUN 18 H Creatinine 1.11 Estim Creat Clear Calc 75.4 Estimated GFR > 60 Random Glucose 94 Calcium 10.4 H Phosphorus 2.8 Magnesium 2.3 Total Bilirubin 0.9 AST 18 ALT 14 Alkaline Phosphatase 99 Total Protein 6.4 L Albumin 3.5 Ur Strep pneumoniae Ag Microbiology Microbiology Results: Microbiology 06/17/24 15:03 Blood - Venous Blood Culture - Preliminary No growth after 48 hours. 06/17/24 15:03 Blood - Venous Blood Culture - Preliminary No growth after 48 hours. Progress Note: A&P Assessment and plan (1) Nephrogenic diabetes insipidus: Status: Acute (2) Metabolic encephalopathy: Status: Acute (3) VALENCIA (acute kidney injury): Status: Acute (4) Hypercalcemia due to a drug: Status: Acute (5) [place] toxicity: Status: Acute (6) CLL (chronic lymphocytic leukemia): Status: Acute (7) Hypernatremia: Status: Acute (8) Schizoaffective disorder: Status: Acute Plan Assessment: 63-year-old gentleman with underlying schizoaffective and depressive disorder on lithium therapy admitted with alteration of mental status with lithium toxicity resulting in nephrogenic diabetes insipidus with hypernatremia, hypercalcemia, and alteration of mental status, further complicated by pulmonary aspiration and acute hypoxic respiratory failure requiring ventilatory support. Plan: Neuro: Metabolic encephalopathy secondary to hypernatremia, improving. ?Partial seizures with no recurrence, Keppra discontinued. Cardiac: No acute issues. Pulmonary: Acute hypoxic respiratory failure secondary to pulmonary aspiration secondary to metabolic encephalopathy, resolved. Extubated uneventfully on 06/20/2024. Renal: Acute renal failure, nephrogenic diabetes insipidus, hypernatremia, hypercalcemia secondary to lithium toxicity. Nephrology service care appreciated. Hypernatremia, diabetes insipidus, and hypercalcemia are improving. Continue to monitor electrolytes. Endo: No acute issues. GI: No acute issues. ID: No acute issues. Heme/Onc: No acute issues. Psych: No acute issues. Underlying schizoaffective disorder and major depressive disorder. Miscellaneous: No acute issues. Prophylaxis: Lovenox Diet: Cardiac Quality Stroke Does the patient have a stroke diagnosis?: No VTE Prior VTE?: No VTE Risk Level:: Medical - moderate - high VTE Device Contraindication: Treatment Not Indicated VTE Drug Contraindication: N/A - Med Ordered
[2024-06-21 12:23] LABS: Anion Gap 10 (12-20); Blood Urea Nitrogen 17 mg/dL (9-16); Calcium 9.5 mg/dL (8.4-10.2); Carbon Dioxide 21 mmol/L (22-29); Chloride 118 mmol/L (96-108); Creatinine Clr Calc Pharmacy 89.1; Estimated Glomerular Filt Rate > 60; Glucose Random 142 mg/dL (60-115); Potassium 3.2 mmol/L (3.3-5.1); Sodium 146 mmol/L (135-145)
[2024-06-21] MEDS: Potassium Chloride Packet 20 MEQ PACKET 60 MEQ PO (13:24)
--- NOTE | 2024-06-21 17:05 | PM.EVENT ---
Event Note Date of Service: 06/22/24 Event Note: Patient seen and examined the ICU downgraded today Seen and examined again-seems somewhat improving Hypernatremia Physical examined assessment and plan coordination in the ICU note Hyponatremia also improving with IV fluid, continue to monitor. Acute hypoxic respiratory failure secondary to pulmonary aspiration secondary to metabolic encephalopathy, resolved. Extubated uneventfully on 06/20/2024. Acute renal failure, nephrogenic diabetes insipidus, hypernatremia, hypercalcemia secondary to lithium toxicity. Nephrology service care appreciated. Hypernatremia, diabetes insipidus, and hypercalcemia are improving. Continue to monitor electrolytes. Time Spent With Patient Time: Total time managing care of this patient today ____ minutes.
[2024-06-21 18:47] LABS: Anion Gap 9 (12-20); Blood Urea Nitrogen 18 mg/dL (9-16); Calcium 9.5 mg/dL (8.4-10.2); Carbon Dioxide 22 mmol/L (22-29); Chloride 116 mmol/L (96-108); Estimated Glomerular Filt Rate > 60; Glucose Random 102 mg/dL (60-115); Potassium 3.9 mmol/L (3.3-5.1); Sodium 143 mmol/L (135-145)
[2024-06-21] MEDS: Tamsulosin HCL 0.4 MG CAPSULE 0.8 MG PO (20:44)
[2024-06-21] MEDS: amLODIPine Besylate 5 MG TABLET PO (20:44)
[2024-06-22] VITALS (7 sets, daily range): BP systolic 128–151; BP diastolic 65–74; PULSE 56–70; RESP 18–20; TEMP 36.3–37; O2SAT 92–97
[2024-06-22] MEDS: Enoxaparin Sodium 60 MG/0.6 ML SYRINGE SUBCUT (04:07)
[2024-06-22] MEDS: Levothyroxine Sodium 112 MCG TABLET PO (05:19)
[2024-06-22 05:44] LABS: Basophils Absolute Auto 0.1 X10*3/uL (0.0-0.2); Basophils Percent Auto 0.5 % (0-2); Eosinophils Absolute Auto 0.5 X10*3/uL (0.0-0.4); Eosinophils Percent Auto 3.4 % (0-4); Hematocrit 40.6 % (42.0-52.0); Hemoglobin 13.3 g/dl (14.0-18.0); Imm Gran Abs Auto 0.03 X10*3/uL (0.00-0.03); Imm Gran Pct Auto 0.2 % (0.0-0.4); Lymphocytes Absolute Auto 7.7 X10*3/uL (1.2-4.9); Lymphocytes Percent Auto 50.6 % (20-40); MANUAL DIFF FLAG SCAN; Mean Corpuscular HGB Conc 32.8 g/dl (31.0-36.0); Mean Corpuscular Hemoglobin 30.3 pg (27.0-33.0); Mean Corpuscular Volume 92.5 fL (80.0-98.0); Mean Platelet Volume 9.9 fL (9.4-12.4); Monocytes Absolute Auto 0.6 X10*3/uL (0.1-1.2); Monocytes Percent Auto 3.9 % (2-11); Neutrophils Absolute Auto 6.3 x10*3/uL (2.0-8.3); Neutrophils Percent Auto 41.4 % (45-73); Platelet Count 175 X10*3/uL (160-400); Red Blood Count 4.39 X10*6/uL (4.60-5.80); Red Cell Distribution Width 14.7 % (11.0-16.0); SCAN SMEAR FLAG 1; White Blood Count 15.2 X10*3/uL (4.8-10.8)
--- NOTE | 2024-06-22 05:47 | PC.NURSE ---
pt bladder scanned for 900mls. Dr. Mensah notified ordered to straight catheter patient. 850mls of output at 23:00. Patient bladder scanned at 05:[address] Mensah notified. Ordered to place carlton catheter. Carlton catheter placed. Carlton catheter is patent and draining.
[2024-06-22 06:00] LABS: Alanine Aminotransferase 14 U/L (0-40); Albumin Level 3.4 g/dL (3.5-5.0); Alkaline Phosphatase 98 U/L (39-117); Anion Gap 12 (12-20); Aspartate Amino Transferase 18 U/L (5-37); Bilirubin Total 0.8 mg/dL (0.0-1.0); Blood Urea Nitrogen 18 mg/dL (9-16); Calcium 10.4 mg/dL (8.4-10.2); Carbon Dioxide 20 mmol/L (22-29); Chloride 117 mmol/L (96-108); Creatinine Clr Calc Pharmacy 83.7; Estimated Glomerular Filt Rate > 60; Glucose Random 93 mg/dL (60-115); Magnesium 1.9 mg/dL (1.6-2.6); Phosphorus 2.2 mg/dL (2.7-4.5); Potassium 3.9 mmol/L (3.3-5.1); Sodium 145 mmol/L (135-145)
[2024-06-22 06:04] LABS: SLIDE REVIEW VERIFIED
[2024-06-22] MEDS: Benztropine Mesylate 1 MG TABLET PO (09:51)
[2024-06-22] MEDS: 0.9 % Sodium Chloride Flush 3 ML SYRINGE IVFLUSH ×3 (09:51→19:49)
[2024-06-22] MEDS: Naltrexone HCl 50 MG TABLET PO (09:51)
[2024-06-22] MEDS: Nystatin Powder 15 GM BOTTLE 1 APPL TOPICAL ×2 (09:52→20:00)
[2024-06-22] MEDS: Calcitonin,Salmon,Synth Nasal 3.7 ML BOTTLE 1 SPRAY NOSTRILALT (09:53)
--- NOTE | 2024-06-22 13:00 | HO.PM.IMPN ---
Subjective Subjective Date of Service: 06/22/24 Interval History: aspirition,hypernatremia ,toxic metabolic encepahlopathy Review of Systems mental status seems improving denies any chest pain or sob has dry cough Physical Exam Vital Signs: Vital Signs: Last Vital Signs Temp 98.1 F 06/22/24 12:00 Pulse 60 06/22/24 12:00 Resp 18 06/22/24 12:00 BP 151/70 H 06/22/24 12:00 Pulse Ox 94 06/22/24 12:00 O2 Del Method Room Air 06/22/24 12:00 O2 Flow Rate 2 06/21/24 01:00 FiO2 30 06/20/24 08:51 BMI result Body Mass Index 29.0 Appearance: Alert.? Oriented X2 . cvs: rrr, [id number] . res: air entry fair , some what diminshed abd: no rebound or guarding ,nt, bs present. ext pulses present , no cyanosis . neuro: moves all ext. Objective Data Active Medications Acetaminophen (Acetaminophen 325 Mg Tablet) 650 mg PO Q6H PRN PRN Reason: Pain, Mild (Pain Scale 1-3), fever or headache Amlodipine Besylate (Amlodipine Besylate 5 Mg Tablet) 5 mg PO BEDTIME [facility]; Protocol Last Admin: 06/21/24 20:44 Dose: 5 mg Documented By: JENNIFER Benztropine Mesylate (Benztropine Mesylate 1 Mg Tablet) 1 mg PO DAILY [facility] Last Admin: 06/22/24 09:51 Dose: 1 mg Documented By: JENNIFER Calcitonin [place] (Calcitonin,[place],Synth Nasal 3.7 Ml Bottle) 1 spray NOSTRILALT DAILY [facility] Last Admin: 06/22/24 09:53 Dose: 1 spray Documented By: JENNIFER Enoxaparin Sodium (Enoxaparin Sodium 60 Mg/0.6 Ml Syringe) 60 mg 1 mg/kg (60 mg) SUBCUT Q12H [facility] Last Admin: 06/22/24 04:07 Dose: 60 mg Documented By: JENNIFER Levothyroxine Sodium (Levothyroxine Sodium 112 Mcg Tablet) 112 mcg PO DAILY@0600 [facility] Last Admin: 06/22/24 05:19 Dose: 112 mcg Documented By: JENNIFER Magnesium Hydroxide (Milk Of Magnesia 30 Ml Oral.Susp) 30 ml PO DAILY PRN PRN Reason: Constipation Melatonin (Melatonin 3 Mg Tablet) 6 mg PO BEDTIME PRN PRN Reason: Insomnia Naltrexone HCl (Naltrexone Hcl 50 Mg Tablet) 50 mg PO DAILY [facility] Last Admin: 06/22/24 09:51 Dose: 50 mg Documented By: JENNIFER Non-Formulary Medication (Dutasteride) 0.5 mg PO BEDTIME [facility] Non-Formulary Medication (Fluticasone Propionate) 2 puff INHALE BID [facility] Non-Formulary Medication (Risperidone Microspheres) 50 mg IM Q14D [facility] Nystatin (Nystatin Powder 15 Gm Bottle) 1 appl TOPICAL BID [facility]; Protocol Last Admin: 06/22/24 09:52 Dose: 1 appl Documented By: JENNIFER Ondansetron HCl (Ondansetron Hcl 4 Mg/2 Ml Vial) 4 mg IVPUSH Q8H PRN PRN Reason: Nausea and Vomiting Sodium Chloride (0.9 % Sodium Chloride Flush 3 Ml Syringe) 3 ml IVFLUSH QSHIFT [facility] Last Admin: 06/22/24 09:51 Dose: 3 ml Documented By: JENNIFER Tamsulosin HCl (Tamsulosin Hcl 0.4 Mg Capsule) 0.8 mg PO BEDTIME [facility] Last Admin: 06/21/24 20:44 Dose: 0.8 mg Documented By: JENNIFER Labs 06/22/24 05:26 06/22/24 05:26 Labs: Laboratory Results - last 24 hr 06/21/24 06/22/24 18:19 05:26 MCV 92.5 MCH 30.3 MCHC 32.8 RDW 14.7 Plt Count 175 MPV 9.9 Immature Gran % (Auto) 0.2 Neut % (Auto) 41.4 L Lymph % (Auto) 50.6 H [place] % (Auto) 3.9 Eos % (Auto) 3.4 Baso % (Auto) 0.5 Lymph # (Auto) 7.7 H [place] # (Auto) 0.6 Eos # (Auto) 0.5 H Baso # (Auto) 0.1 Abs Immat Gran (auto) 0.03 Absolute Neuts (auto) 6.3 Absolute Nucleated RBC 0.000 Nucleated RBC % (auto) 0.0 Smear Tech's Comments VERIFIED Anion Gap 9 L 12 Estim Creat Clear Calc 79.0 83.7 Estimated GFR > 60 > 60 Random Glucose 102 93 Calcium 9.5 10.4 H D Phosphorus 2.2 L Magnesium 1.9 Total Bilirubin 0.8 AST 18 ALT 14 Alkaline Phosphatase 98 Total Protein 6.0 L Albumin 3.4 L Assessment and Plan (1) Nephrogenic diabetes insipidus: Status: Acute (2) Acute hypoxic respiratory failure: Status: Acute Assessment and Plan: 63-year-old male with pertinent history of CLL, hypertension, schizoaffective disorder, alcoholic liver disease, major depressive disorder, BPH, COPD not on home oxygen, hypothyroidism, mixed hyperlipidemia, gastroesophageal reflux disease admitted for acute metabolic encephalopathy as well as lithium toxic [place] and [place] patient was in ICU due to multifactorial issues-Acute hypoxic respiratory failure secondary to pulmonary aspiration and acute toxic metabolic encephalopathy requiring intubation,iv antibiotics ,aggressive hydration iv , Extubated uneventfully on 06/20/2024-transferred to floor on 06/21/24. acute toxic metabolic encephalopathy multifactorial: likely due to electrolytic abnormalities ,lithium toxicity, aspirational pneumonitis hypernatremia and DI- lithum toxicity lithum levels normalised sodium improved plan completed antibiotics for asprinational pneumonitis as per icu. lithum levels normalised sodium improved mental status improving as per Icu chart review-?Partial seizures with no recurrence, Keppra discontinued. Pt eval added New onset atrial fibrillation with RVR hr acceptable echo: visually estimated ejection fraction is >70%. The basal inferior segment is akinetic. Normal right ventricular cavity size and systolic function.There is mild to moderate aortic valve stenosis. [email or web address] -therapeutic Lovenox cardiology follow on 06/19:Long-term anticoagulation to be decided based on neurological recovery and stability with ambulation. acute lithium toxicity improved moniter i/o closely acute kidney injury-likely due to above,dehydration due to low po intake. improved with hydration and po intake improving. Acute urinary retention has carlton catheter chronic leukocytosis due to CLL: improving -not related to infection/sepsis hypothyroidism tsh boderline low , free t4 -normal(possible euthyroid sick synd) continue levothyroxine Schizoaffective disorder/mood disorder on risperidone ,hold lithium due to above will add psych eval before discharge -once patient improves ,if needed any adjustment /addition of psych meds. GERD-PPI COPD-no acute exacerbation. added nebs ,incentive spro, oob,chest physio. hypertension-fluctuating continue amlodipine 5 mg qhs DVT prophylaxis: Lovenox hospitlisation need-acute toxic metabolic encephalopathy multifactorial, DI sec to lithium toxicity-need renal function/eelctolytic monitering as well as mental status monitering ,cardiology followup as well as Pt eval. Quality Stroke Does the patient have a stroke diagnosis?: No VTE Prior VTE?: No VTE Risk Level:: Medical - moderate - high VTE Device Contraindication: Treatment Not Indicated VTE Drug Contraindication: N/A - Med Ordered
--- NOTE | 2024-06-22 14:50 | MHC.CM.PN ---
PT is recommending STR; CM will follow.
[2024-06-22] MEDS: Omeprazole 20 MG CAPSULE.DR PO (15:00)
--- NOTE | 2024-06-22 15:11 | MHC.CM.PN ---
Per discussion with MD, Patient's mental status is improving, but at this time, HCP/Sister is the decision-maker. CM will follow.
[2024-06-22] MEDS: Enoxaparin Sodium 80 MG/0.8 ML SYRINGE SUBCUT (15:56)
[2024-06-22] MEDS: amLODIPine Besylate 5 MG TABLET PO (19:48)
[2024-06-22] MEDS: Tamsulosin HCL 0.4 MG CAPSULE 0.8 MG PO (19:48)
[2024-06-23] VITALS (7 sets, daily range): BP systolic 116–165; BP diastolic 57–68; PULSE 56–80; RESP 18–20; TEMP 36.1–36.8; O2SAT 90–96; BMI 28.6
[2024-06-23] MEDS: Enoxaparin Sodium 80 MG/0.8 ML SYRINGE SUBCUT (03:49)
[2024-06-23] MEDS: Levothyroxine Sodium 112 MCG TABLET PO (06:12)
[2024-06-23] MEDS: Omeprazole 20 MG CAPSULE.DR PO (06:12)
[2024-06-23] MEDS: Albuterol/Iprat 2.5/0.5MG 3 ML AMPUL.NEB INHALE (07:30)
[2024-06-23] MEDS: Naltrexone HCl 50 MG TABLET PO (08:26)
[2024-06-23] MEDS: Benztropine Mesylate 1 MG TABLET PO (08:26)
[2024-06-23] MEDS: 0.9 % Sodium Chloride Flush 3 ML SYRINGE IVFLUSH ×3 (08:27→21:44)
[2024-06-23] MEDS: Calcitonin,Salmon,Synth Nasal 3.7 ML BOTTLE 1 SPRAY NOSTRILALT (10:43)
[2024-06-23] MEDS: Nystatin Powder 15 GM BOTTLE 1 APPL TOPICAL ×2 (10:44→21:48)
[2024-06-23] MEDS: Sodium,Potassium Phosphates POWD.PACK 1 PACKET PO ×4 (10:56→21:43)
--- NOTE | 2024-06-23 11:43 | HO.PM.IMPN ---
Subjective Subjective Date of Service: 06/23/24 Interval History: hypernatremia ,toxic metabolic encepahlopathy Review of Systems mental status somewhat improving eating breakfast Physical Exam Vital Signs: Vital Signs: Last Vital Signs Temp 98.2 F 06/23/24 11:03 Pulse 68 06/23/24 11:03 Resp 18 06/23/24 11:03 BP 139/64 06/23/24 11:03 Pulse Ox 93 06/23/24 11:03 O2 Del Method Room Air 06/23/24 11:03 O2 Flow Rate 2 06/21/24 01:00 FiO2 30 06/20/24 08:51 BMI result Body Mass Index 28.6 Appearance: Alert.? Oriented X2 . cvs: rrr, [id number] . res: air entry fair , some what diminshed abd: no rebound or guarding ,nt, bs present. ext pulses present , no cyanosis . neuro: moves all ext. Objective Data Active Medications Acetaminophen (Acetaminophen 325 Mg Tablet) 650 mg PO Q6H PRN PRN Reason: Pain, Mild (Pain Scale 1-3), fever or headache Albuterol/Ipratropium (Albuterol/Iprat 2.5/0.5mg 3 Ml Ampul.Neb) 3 ml INHALE RQ4H WHILE AWAKE [facility] Last Admin: 06/23/24 11:15 Dose: Not Given Documented By: RUSTY Non-Admin Reason: pt refused Amlodipine Besylate (Amlodipine Besylate 5 Mg Tablet) 5 mg PO BEDTIME [facility]; Protocol Last Admin: 06/22/24 19:48 Dose: 5 mg Documented By: JENNIFER Benztropine Mesylate (Benztropine Mesylate 1 Mg Tablet) 1 mg PO DAILY [facility] Last Admin: 06/23/24 08:26 Dose: 1 mg Documented By: JENNIFER Calcitonin [place] (Calcitonin,[place],Synth Nasal 3.7 Ml Bottle) 1 spray NOSTRILALT DAILY [facility] Last Admin: 06/23/24 10:43 Dose: 1 spray Documented By: JENNIFER Enoxaparin Sodium (Enoxaparin Sodium 40 Mg/0.4 Ml Syringe) 40 mg SUBCUT Q24H [facility] Levothyroxine Sodium (Levothyroxine Sodium 112 Mcg Tablet) 112 mcg PO DAILY@0600 [facility] Last Admin: 06/23/24 06:12 Dose: 112 mcg Documented By: KIP Magnesium Hydroxide (Milk Of Magnesia 30 Ml Oral.Susp) 30 ml PO DAILY PRN PRN Reason: Constipation Melatonin (Melatonin 3 Mg Tablet) 6 mg PO BEDTIME PRN PRN Reason: Insomnia Naltrexone HCl (Naltrexone Hcl 50 Mg Tablet) 50 mg PO DAILY [facility] Last Admin: 06/23/24 08:26 Dose: 50 mg Documented By: JENNIFER Non-Formulary Medication (Dutasteride) 0.5 mg PO BEDTIME [facility] Non-Formulary Medication (Fluticasone Propionate) 2 puff INHALE BID [facility] Non-Formulary Medication (Risperidone Microspheres) 50 mg IM Q14D [facility] Nystatin (Nystatin Powder 15 Gm Bottle) 1 appl TOPICAL BID [facility]; Protocol Last Admin: 06/23/24 10:44 Dose: 1 appl Documented By: JENNIFER Omeprazole (Omeprazole 20 Mg Capsule.Dr) 20 mg PO DAILY@0630 [facility] Last Admin: 06/23/24 06:12 Dose: 20 mg Documented By: KIP Ondansetron HCl (Ondansetron Hcl 4 Mg/2 Ml Vial) 4 mg IVPUSH Q8H PRN PRN Reason: Nausea and Vomiting Potassium Phos/Sodium Phos (Sodium,Potassium Phosphates Powd.Pack) 1 packet PO QID [facility] Last Admin: 06/23/24 10:56 Dose: 1 packet Documented By: JENNIFER Sodium Chloride (0.9 % Sodium Chloride Flush 3 Ml Syringe) 3 ml IVFLUSH QSHIFT [facility] Last Admin: 06/23/24 08:27 Dose: 3 ml Documented By: JENNIFER Tamsulosin HCl (Tamsulosin Hcl 0.4 Mg Capsule) 0.8 mg PO BEDTIME [facility] Last Admin: 06/22/24 19:48 Dose: 0.8 mg Documented By: [facility] 06/22/24 05:26 06/22/24 05:26 Microbiology Microbiology Results: Microbiology 06/17/24 15:03 Blood Culture - Final Blood - Venous No growth after 5 days. 06/17/24 15:03 Blood Culture - Final Blood - Venous No growth after 5 days. Assessment and Plan (1) Nephrogenic diabetes insipidus: Status: Acute (2) Acute hypoxic respiratory failure: Status: Acute Assessment and Plan: 63-year-old male with pertinent history of CLL, hypertension, schizoaffective disorder, alcoholic liver disease, major depressive disorder, BPH, COPD not on home oxygen, hypothyroidism, mixed hyperlipidemia, gastroesophageal reflux disease admitted for acute metabolic encephalopathy as well as lithium toxic [place] and [place] patient was in ICU due to multifactorial issues-Acute hypoxic respiratory failure secondary to pulmonary aspiration and acute toxic metabolic encephalopathy requiring intubation,iv antibiotics ,aggressive hydration iv , Extubated uneventfully on 06/20/2024-transferred to floor on 06/21/24. acute toxic metabolic encephalopathy multifactorial: likely due to electrolytic abnormalities ,lithium toxicity, aspirational pneumonitis hypernatremia and possible DI- lithum toxicity lithum levels normalised sodium improved plan completed antibiotics for asprinational pneumonitis as per icu. lithum levels normalised sodium improved mental status improving as per Icu chart review-?Partial seizures with no recurrence, Keppra discontinued. Pt eval -rehab. New onset atrial fibrillation with RVR( likely PAF) hr acceptable echo: visually estimated ejection fraction is >70%. The basal inferior segment is akinetic. Normal right ventricular cavity size and systolic function.There is mild to moderate aortic valve stenosis. chadvasc2 -therapeutic Lovenox intially has afib in setting lithium toxicity,electrolytic abnormalities ,patient is nsr afterwards d/w cardiology -patient still highrisk fall ,hold AC. acute lithium toxicity improved moniter i/o closely acute kidney injury-likely due to above,dehydration due to low po intake. improved with hydration and po intake improving. Acute urinary retention has carlton catheter chronic leukocytosis due to CLL: improving -not related to infection/sepsis hypothyroidism tsh boderline low , free t4 -normal(possible euthyroid sick synd) continue levothyroxine Schizoaffective disorder/mood disorder on risperidone ,hold lithium due to above will add psych eval before discharge -once patient improves ,if needed any adjustment /addition of psych meds. GERD-PPI COPD-no acute exacerbation. added nebs ,incentive spro, oob,chest physio. hypertension-fluctuating continue amlodipine 5 mg qhs DVT prophylaxis: Lovenox hospitlisation need-acute toxic metabolic encephalopathy multifactorial, DI sec to lithium toxicity-need renal function/eelctolytic monitering as well as mental status monitering ,cardiology followup as well as Pt eval. Quality Stroke Does the patient have a stroke diagnosis?: No VTE Prior VTE?: No VTE Risk Level:: Medical - moderate - high VTE Device Contraindication: Treatment Not Indicated VTE Drug Contraindication: N/A - Med Ordered
[2024-06-23 16:05] LABS: Anion Gap 13 (12-20); Blood Urea Nitrogen 15 mg/dL (9-16); Calcium 9.8 mg/dL (8.4-10.2); Carbon Dioxide 20 mmol/L (22-29); Chloride 114 mmol/L (96-108); Creatinine Clr Calc Pharmacy 92.5; Estimated Glomerular Filt Rate > 60; Glucose Random 116 mg/dL (60-115); Potassium 3.9 mmol/L (3.3-5.1); Sodium 143 mmol/L (135-145)
[2024-06-23] MEDS: Tamsulosin HCL 0.4 MG CAPSULE 0.8 MG PO (21:42)
[2024-06-23] MEDS: amLODIPine Besylate 5 MG TABLET PO (21:43)
[2024-06-23] MEDS: Acetaminophen 325 MG TABLET 650 MG PO (21:43)
[2024-06-24] VITALS (11 sets, daily range): BP systolic 107–143; BP diastolic 58–69; PULSE 59–71; RESP 16–20; TEMP 36–36.8; O2SAT 91–98; BMI 26.1
[2024-06-24] MEDS: Enoxaparin Sodium 40 MG/0.4 ML SYRINGE SUBCUT (05:16)
[2024-06-24] MEDS: Levothyroxine Sodium 112 MCG TABLET PO (05:17)
[2024-06-24] MEDS: Omeprazole 20 MG CAPSULE.DR PO (05:17)
[2024-06-24 07:28] LABS: Anion Gap 12 (12-20); Blood Urea Nitrogen 13 mg/dL (9-16); Calcium 10.1 mg/dL (8.4-10.2); Carbon Dioxide 23 mmol/L (22-29); Chloride 113 mmol/L (96-108); Creatinine Clr Calc Pharmacy 86.4; Estimated Glomerular Filt Rate > 60; Glucose Random 98 mg/dL (60-115); Potassium 3.8 mmol/L (3.3-5.1); Sodium 144 mmol/L (135-145)
[2024-06-24] MEDS: Albuterol/Iprat 2.5/0.5MG 3 ML AMPUL.NEB INHALE ×4 (07:58→19:56)
[2024-06-24] MEDS: 0.9 % Sodium Chloride Flush 3 ML SYRINGE IVFLUSH ×3 (09:13→22:42)
[2024-06-24] MEDS: Naltrexone HCl 50 MG TABLET PO (09:14)
[2024-06-24] MEDS: Sodium,Potassium Phosphates POWD.PACK 1 PACKET PO ×4 (09:14→22:41)
[2024-06-24] MEDS: Nystatin Powder 15 GM BOTTLE 1 APPL TOPICAL ×2 (09:14→22:51)
[2024-06-24] MEDS: Benztropine Mesylate 1 MG TABLET PO (09:14)
[2024-06-24] MEDS: Calcitonin,Salmon,Synth Nasal 3.7 ML BOTTLE 1 SPRAY NOSTRILALT (09:15)
--- NOTE | 2024-06-24 09:59 | P.PNNP_ITS ---
Subjective Subjective Date of Service: 06/24/24 Interval history: 63-year-old gentleman with underlying CLL, hypertension, COPD, schizoaffective, alcoholic hepatitis, on chronically lithium therapy admitted on 06/16/2024 with alteration of mental status deemed to be secondary to lithium toxicity. Patient was also noted to have hypercalcemia with hyponatremia and hyperparathyroidism, IV fluids and cinalcalet for management. hypernatremia improving with hydration, currently normal at 144 patient currently able to drink PO fluids and hydrating throughout the day; states he is very thirsty creatinine is recovered at baseline, currently 0.88 this a.m. pt alert and conversant today reports ongoing thirst, drinking lots of water urine output has remains high at 6L over last 64 hours (carlton) reports he is breathing comfortably denies other concerns Physical Exam 2 Vital Signs: Vital Signs: Last Vital Signs Temp 97.4 F 06/24/24 07:37 Pulse 59 06/24/24 07:59 Resp 18 06/24/24 07:59 BP 143/69 H 06/24/24 07:37 Pulse Ox 91 L 06/24/24 07:37 O2 Del Method Room Air 06/24/24 07:37 O2 Flow Rate 2 06/21/24 01:00 FiO2 30 06/20/24 08:51 BMI result Body Mass Index 26.1 Const: General: cooperative, comfortable, no acute distress, alert and awake HEENT: Mouth: moist mucous membranes abnormal (dry mucous membranes) Neck: Neck: Yes no JVD Resp: Effort & Inspection: normal respiratory effort Auscultation: clear to auscultation bilaterally Cardio: Jugular venous distension: no JVD Rate: regular rate Heart sounds: S1 normal heart sound present and S2 normal heart sound present GI: Palpation (GI): Soft to palpation and nontender : Other: carlton patent and in place General: Yes no CVA tenderness Back/Spine/Pelvis: Back: no CVA tenderness Skin: Lesions: no lesions Rashes: no rashes Extrem: General: No edema Objective Data Labs 06/22/24 05:26 06/24/24 06:37 Labs: Laboratory Results - last 24 hr 06/23/24 06/24/24 15:38 06:37 Sodium 143 144 Potassium 3.9 3.8 Chloride 114 H 113 H Carbon Dioxide 20 L 23 Anion Gap 13 12 BUN 15 13 Creatinine 0.90 0.88 Estim Creat Clear Calc 92.5 86.4 Estimated GFR > 60 > 60 Random Glucose 116 H 98 Calcium 9.8 10.1 Microbiology Microbiology Results: Microbiology 06/17/24 15:03 Blood - Venous Blood Culture - Final No growth after 5 days. 06/17/24 15:03 Blood - Venous Blood Culture - Final No growth after 5 days. Procedures Date of Service Date of Service: 06/24/24 Assessment & Plan Assessment and plan (1) Hypernatremia: Status: Acute (2) VALENCIA (acute kidney injury): Status: Acute (3) Altered mental status: Status: Acute (4) Hypercalcemia due to a drug: Status: Acute (5) [place] toxicity: Status: Acute Plan initially had VALENCIA likely secondary to lithium toxicity, renal function improved with discontinuation of lithium had subsequent VALENCIA likely secondary to hypoperfusion from aspiration pneumonia renal function has normalized, creatinine 0.88 this a.m. 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 Recommend continuing adequate PO oral hydration. May need cinacalcet 30mg PO daily, but shall continue to monitor and initiate later if needed. Ok for discharge from renal standpoint; recommend he push fluids to ensure sodium levels remain controlled. Discussed with Dr Martin Time Spent With Patient Time: Total time managing care of this patient today ____ minutes. Progress Note: Quality Stroke Does the patient have a stroke diagnosis?: No
--- NOTE | 2024-06-24 11:47 | MHC.CLN ---
F/U PO INTAKE 50% AVG DIET RX: CARDIAC CHOPPED RECEIVING ENSURE TID TO PROMOTE WOUND HEALING SUPPLEMENT TO PROVIDE 1050KCALS, 60G PROTEIN MONITOR PO INTAKE AND ENCOURAGE SUPPLEMEN
--- NOTE | 2024-06-24 12:52 | MHC.CM.PN ---
EMR reviewed and per MD rounds, pt is not medically cleared for discharge due to management of acute toxic metabolic encephalopathy, and psych eval pending.
--- NOTE | 2024-06-24 13:43 | P.PNIM_ITS ---
Subjective Subjective Date of Service: 06/24/24 Interval History: toxic metabolic encepahlopathy Review of Systems menatl status slowly improving has some delusion ,tangentiality off lithum due to lithum toxicity and possible DI. Physical Exam 2 Vital Signs: Vital Signs: Last Vital Signs Temp 97.3 F 06/24/24 11:09 Pulse 71 06/24/24 11:51 Resp 18 06/24/24 11:51 BP 107/59 L 06/24/24 11:09 Pulse Ox 94 06/24/24 11:09 O2 Del Method Room Air 06/24/24 11:09 O2 Flow Rate 2 06/21/24 01:00 FiO2 30 06/20/24 08:51 BMI result Body Mass Index 26.1 Appearance: Alert.? Oriented X2 . cvs: rrr, [id number] . res: air entry fair , some what diminshed abd: no rebound or guarding ,nt, bs present. ext pulses present , no cyanosis . neuro: moves all ext. Objective Data Active Medications Acetaminophen (Acetaminophen 325 Mg Tablet) 650 mg PO Q6H PRN PRN Reason: Pain, Mild (Pain Scale 1-3), fever or headache Last Admin: 06/23/24 21:43 Dose: 650 mg Documented By: JAQUELIN Albuterol/Ipratropium (Albuterol/Iprat 2.5/0.5mg 3 Ml Ampul.Neb) 3 ml INHALE RQ4H WHILE AWAKE [facility] Last Admin: 06/24/24 11:47 Dose: 3 ml Documented By: ISABELA Amlodipine Besylate (Amlodipine Besylate 5 Mg Tablet) 5 mg PO BEDTIME [facility]; Protocol Last Admin: 06/23/24 21:43 Dose: 5 mg Documented By: JAQUELIN Benztropine Mesylate (Benztropine Mesylate 1 Mg Tablet) 1 mg PO DAILY [facility] Last Admin: 06/24/24 09:14 Dose: 1 mg Documented By: ROWDY Calcitonin [place] (Calcitonin,[place],Synth Nasal 3.7 Ml Bottle) 1 spray NOSTRILALT DAILY [facility] Last Admin: 06/24/24 09:15 Dose: 1 spray Documented By: ROWDY Enoxaparin Sodium (Enoxaparin Sodium 40 Mg/0.4 Ml Syringe) 40 mg SUBCUT Q24H [facility] Last Admin: 06/24/24 05:16 Dose: 40 mg Documented By: LINCOLN Levothyroxine Sodium (Levothyroxine Sodium 112 Mcg Tablet) 112 mcg PO DAILY@0600 [facility] Last Admin: 06/24/24 05:17 Dose: 112 mcg Documented By: LINCOLN Magnesium Hydroxide (Milk Of Magnesia 30 Ml Oral.Susp) 30 ml PO DAILY PRN PRN Reason: Constipation Melatonin (Melatonin 3 Mg Tablet) 6 mg PO BEDTIME PRN PRN Reason: Insomnia Naltrexone HCl (Naltrexone Hcl 50 Mg Tablet) 50 mg PO DAILY [facility] Last Admin: 06/24/24 09:14 Dose: 50 mg Documented By: ROWDY Nystatin (Nystatin Powder 15 Gm Bottle) 1 appl TOPICAL BID [facility]; Protocol Last Admin: 06/24/24 09:14 Dose: 1 appl Documented By: ROWDY Omeprazole (Omeprazole 20 Mg Capsule.Dr) 20 mg PO DAILY@0630 [facility] Last Admin: 06/24/24 05:17 Dose: 20 mg Documented By: LINCOLN Ondansetron HCl (Ondansetron Hcl 4 Mg/2 Ml Vial) 4 mg IVPUSH Q8H PRN PRN Reason: Nausea and Vomiting Potassium Phos/Sodium Phos (Sodium,Potassium Phosphates Powd.Pack) 1 packet PO QID [facility] Last Admin: 06/24/24 09:14 Dose: 1 packet Documented By: ROWDY Sodium Chloride (0.9 % Sodium Chloride Flush 3 Ml Syringe) 3 ml IVFLUSH QSHIFT [facility] Last Admin: 06/24/24 09:13 Dose: 3 ml Documented By: ROWDY Tamsulosin HCl (Tamsulosin Hcl 0.4 Mg Capsule) 0.8 mg PO BEDTIME [facility] Last Admin: 06/23/24 21:42 Dose: 0.8 mg Documented By: JAQUELIN Labs 06/22/24 05:26 06/24/24 06:37 Labs: Laboratory Results - last 24 hr 06/23/24 06/24/24 15:38 06:37 Anion Gap 13 12 Estim Creat Clear Calc 92.5 86.4 Estimated GFR > 60 > 60 Random Glucose 116 H 98 Calcium 9.8 10.1 Assessment and Plan (1) Nephrogenic diabetes insipidus: Status: Acute (2) Metabolic encephalopathy: Status: Acute Plan 63-year-old male with pertinent history of CLL, hypertension, schizoaffective disorder, alcoholic liver disease, major depressive disorder, BPH, COPD not on home oxygen, hypothyroidism, mixed hyperlipidemia, gastroesophageal reflux disease admitted for acute metabolic encephalopathy as well as lithium toxic [place] and [place] patient was in ICU due to multifactorial issues-Acute hypoxic respiratory failure secondary to pulmonary aspiration and acute toxic metabolic encephalopathy requiring intubation,iv antibiotics ,aggressive hydration iv , Extubated uneventfully on 06/20/2024-transferred to floor on 06/21/24. acute toxic metabolic encephalopathy multifactorial: likely due to electrolytic abnormalities ,lithium toxicity, aspirational pneumonitis hypernatremia and possible DI- lithum toxicity lithum levels normalised sodium improved plan completed antibiotics for asprinational pneumonitis as per icu. lithum levels normalised sodium improved mental status improving as per Icu chart review- Metabolic encephalopathy secondary to hypernatremia, improving. ?Partial seizures with no recurrence, Keppra discontinued. d/w Dr payan also-concur with above ,stop keppra and follow with neuorlogy outpatient. has lithium with Di-continue i/o monitering Pt eval -rehab. New onset atrial fibrillation with RVR( likely PAF) hr acceptable echo: visually estimated ejection fraction is >70%. The basal inferior segment is akinetic. Normal right ventricular cavity size and systolic function.There is mild to moderate aortic valve stenosis. chadvasc2 -therapeutic Lovenox intially has afib in setting lithium toxicity,electrolytic abnormalities ,patient is nsr afterwards d/w cardiology - pt eval noted-patient still highrisk fall ,hold AC. need repeat Pt eval to eval fall risk. cardiology following acute lithium toxicity improved moniter i/o closely acute kidney injury-likely due to above,dehydration due to low po intake. improved with hydration and po intake improving. Acute urinary retention has carl[place] catheter chronic leukocytosis due to CLL: improving hypothyroidism tsh boderline low , free t4 -normal(possible euthyroid sick synd) continue levothyroxine Schizoaffective disorder/mood disorder has dilusions/tangentiality on risperidone ,hold lithium due to above psych eval before discharge -once patient improves ,if needed any adjustment /addition of psych meds. GERD-PPI COPD-no acute exacerbation. added nebs ,incentive spro, oob,chest physio. hypertension-fluctuating continue amlodipine 5 mg qhs DVT prophylaxis: Lovenox hospitlisation need-acute toxic metabolic encephalopathy multifactorial, DI sec to lithium toxicity-need renal function/eelctolytic monitering as well as mental status monitering ,cardiology followup as well as Pt eval. Quality Stroke Does the patient have a stroke diagnosis?: No VTE Prior VTE?: No VTE Risk Level:: Medical - moderate - high VTE Device Contraindication: Treatment Not Indicated VTE Drug Contraindication: N/A - Med Ordered
--- NOTE | 2024-06-24 13:55 | MHC.SL.SWA ---
Speech Pathologist Impression: Risk of Aspiration Due to: Hx of Recent Extubation Dysphasia Diet Status: Liquid Consistency and Strategies for Safe Swallow: Liquid Intake Recommendation: Thin Liquid Intake Strategies: Solid Food Consistency: Dietary Recommendations: Chopped/Advanced (NDD3) Additional Modifications to Solid Foods: No overt s/s of aspiration with intake of various textures. Note mildly prolonged period of mastication on harder solids likely d/t generalized weakness and edentulous status, good oral clearance otherwise noted. Recommend start on CHOPPED/ADVANCED (NDD3) diet for ease of mastication with THIN liquids and pills WHOLE with LIQUID. Patient attempts to feed himself, but has a tendency to drop utensils and cups. Direct supervision recommended at meal time, provide assistance as needed. Oral Medication Intake: Whole with Liquid Please contact the pharmacy regarding appropriate crushable or liquid drug formulations that are available whenever modified delivery is recommended. Compensatory Strategies and Precautions to be Taken for Safe Swallow: Sitting Upright (90 deg) Liquids from Straw Small Bites and Sips Alternate Liquids/Solids Rate of Ingestion Change Supervision While Eating and Drinking for Safe Swallow: Total Supervision (1:1) Foods to Avoid: Swallowing Recommended Treatments: Compens. Strategy Educat. Recommendation for Speech: Inpatient Speech Therapy Comment: Pt more alert, reported he eats without dentures. Pt tolerating regular moistened solids with good oral prep phase efficiency, sipping liquids by straw to formulate bolus and clear. Pharyngeal phase of swallow unremarkable, no overt s/s of aspiration on current diet. DESIGN SALES CONSULTANT will continue to follow to monitor tolerance of modified diet and re-assess for potential upgrade when appropriate. Frequency/Duration: M-F PRN Date Range for Service Req: Timeline to reassess: Drainage Inspector Clinican/Clinical Fellow: No Supervisory Statement: I have reviewed and agree with the student/clinical fellow's documentation: N/A Speech Language Pathologist: Nicci Redd M.S. CCC-DESIGN SALES CONSULTANT
--- NOTE | 2024-06-24 16:36 | PM.PSYCN ---
History of Present Illness Date of Service: 06/24/24 Chief Complaint: AMS Reason for Consult: metabolic encephalopathy confused s/p lithium toxicity Requesting physician: Freddy Jaime HPI Narrative: Patient is a 63-year-old male with a history of reported schizoaffective disorder stable on lithium Paxil and Risperdal Consta for an extended period of time. Unable to get any clear history from the patient. At baseline the patient is somewhat concrete reportedly not grossly psychotic or paranoid but has been in the past some disorganization history of alcohol use. Patient has been managed in a supportive apartment situation through [facility]. He does not have reportedly a baseline dementia. Is unclear to me when the patient last received Risperdal constant injection He was admitted in a confusional state thought to be secondary to lithium toxicity and acute kidney injury. Ammonia was unremarkable he developed pneumonia at some point and was in the ICU. Patient is now on the telemetry floor he is currently able to take in some food and fluids The patient remains quite confused pleasant cooperative has not been combative. His chemistries have normalized no longer hyponatremic no longer with acute renal failure. Not currently on O2. He has not been getting Paxil or lithium. Unclear when his Risperdal Consta q.2 weeks was last given. Past Psychiatric History: History of schizoaffective disorder with past hospitalizations has been stable on lithium and Risperdal was on Haldol injectable in the past on naltrexone for alcoholism Medical Evaluation Reviewed: Yes [facility] Medical History (Updated 06/25/24 @ 10:37 by Kane Watt MD) Schizo-affective schizophrenia Hypercalcemia due to lithium Non-toxic multinodular goiter Vitamin D deficiency 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 Encounter for general adult medical examination with abnormal findings Alcoholic liver disease Schizoaffective disorder Depression, major, recurrent (Unknown) Thrombocytosis Obesity Tobacco abuse BPH (benign prostatic hyperplasia) COPD (chronic obstructive pulmonary disease) Lipid disorder Chronic GERD Hypothyroidism Surgical History History of surgery History of hernia repair Diagnostics Vital Signs (24Hr): Vital Signs - 24 hr 06/23/24 19:14 06/23/24 21:43 06/24/24 00:00 Temperature 97.0 F 97.3 F Pulse Rate 62 63 Respiratory Rate 20 20 Blood Pressure 165/68 H 130/68 136/67 Pulse Oximetry 96 91 L Oxygen Delivery Method Room Air Room Air 06/24/24 03:00 06/24/24 07:37 06/24/24 07:59 Temperature 96.8 F 97.4 F Pulse Rate 61 64 59 Respiratory Rate 20 20 18 Blood Pressure 119/68 143/69 H Pulse Oximetry 92 91 L Oxygen Delivery Method Room Air Room Air 06/24/24 11:09 06/24/24 11:51 06/24/24 15:40 Temperature 97.3 F Pulse Rate 67 71 69 Respiratory Rate 20 18 16 Blood Pressure 107/59 L Pulse Oximetry 94 Oxygen Delivery Method Room Air 06/24/24 15:44 Temperature 98.2 F Pulse Rate 70 Respiratory Rate 19 Blood Pressure 110/59 L Pulse Oximetry 98 Oxygen Delivery Method Room Air BMI result Body Mass Index 26.1 Labs 06/22/24 05:26 06/25/24 06:10 Labs: Laboratory Results - last 48 hr 06/23/24 06/24/24 15:38 06:37 Sodium 143 144 Potassium 3.9 3.8 Chloride 114 H 113 H Carbon Dioxide 20 L 23 Anion Gap 13 12 BUN 15 13 Creatinine 0.90 0.88 Estim Creat Clear Calc 92.5 86.4 Estimated GFR > 60 > 60 Random Glucose 116 H 98 Calcium 9.8 10.1 Imaging Radiology Impressions: ITS Impressions Head CT 06/16/24 20:09 IMPRESSION: 1. No evidence of acute intracranial hemorrhage or edematous territorial infarction. 2. Mild to moderate underlying microangiopathy and generalized cerebral volume loss. Electronically signed by: William Albrecht DO 06/16/2024 08:38 PM EDT RP Chest X-Ray 06/17/24 13:00 IMPRESSION: Left lower lobe pneumonia. Small left pleural effusion. Electronically signed by: Noble Sheffield MD 06/17/2024 01:52 PM EDT RP KUB X-Ray 06/17/24 17:30 IMPRESSION: No metallic foreign bodies are seen. Electronically signed by: Kevin Cardona MD 06/17/2024 06:31 PM EDT RP Brain MRI 06/17/24 19:49 IMPRESSION: No acute intracranial abnormality. Electronically signed by: Sully Booker MD 06/17/2024 08:23 PM EDT RP Head CT 06/18/24 16:57 IMPRESSION: Unremarkable chest exam. No acute intracranial process seen. Electronically signed by: Ck Daniel MD 06/18/2024 05:45 PM EDT RP Chest X-Ray 06/18/24 17:00 IMPRESSION: Unremarkable chest exam. No acute intracranial process seen. Electronically signed by: Ck Daniel MD 06/18/2024 05:45 PM EDT RP Chest X-Ray 06/18/24 22:08 IMPRESSION: 1. Endotracheal tube terminates 5.5 cm above the steffanie. 2. Increased retrocardiac consolidation. Electronically signed by: William Albrecht DO 06/19/2024 12:28 AM EDT RP Mental Status Exam Mental Status Exam Narrative: Mental Status Exam Narrative: Appearance: Hospital garb somewhat disheveled perplexed look on his face Behavior: Cooperative psychomotor:nl Speech: Slow Thought proccess concrete slowed difficulty reasoning Thought content: Mostly on what happened to him Mood: Perplexed some anxiety Affect: Appropriate to mood SI:denies HI:denies VH/AH:none Delusions:no PI or other del material Insight/judgment: Grossly impaired difficulty processing information pleasant perplexed Memory/cog: Grossly disorganized poor working attention easily distract unclear where he is why he is here where he normally lives what his is Medications Medications Current Medications Acetaminophen (Acetaminophen 325 Mg Tablet) 650 mg PO Q6H PRN PRN Reason: Pain, Mild (Pain Scale 1-3), fever or headache Last Admin: 06/23/24 21:43 Dose: 650 mg Albuterol/Ipratropium (Albuterol/Iprat 2.5/0.5mg 3 Ml Ampul.Neb) 3 ml INHALE RQ4H WHILE AWAKE [facility] Last Admin: 06/24/24 15:37 Dose: 3 ml Amlodipine Besylate (Amlodipine Besylate 5 Mg Tablet) 5 mg PO BEDTIME [facility]; Protocol Last Admin: 06/23/24 21:43 Dose: 5 mg Benztropine Mesylate (Benztropine Mesylate 1 Mg Tablet) 1 mg PO DAILY [facility] Last Admin: 06/24/24 09:14 Dose: 1 mg Calcitonin [place] (Calcitonin,[place],Synth Nasal 3.7 Ml Bottle) 1 spray NOSTRILALT DAILY [facility] Last Admin: 06/24/24 09:15 Dose: 1 spray Enoxaparin Sodium (Enoxaparin Sodium 40 Mg/0.4 Ml Syringe) 40 mg SUBCUT Q24H [facility] Last Admin: 06/24/24 05:16 Dose: 40 mg Levothyroxine Sodium (Levothyroxine Sodium 112 Mcg Tablet) 112 mcg PO DAILY@0600 [facility] Last Admin: 06/24/24 05:17 Dose: 112 mcg Magnesium Hydroxide (Milk Of Magnesia 30 Ml Oral.Susp) 30 ml PO DAILY PRN PRN Reason: Constipation Melatonin (Melatonin 3 Mg Tablet) 6 mg PO BEDTIME PRN PRN Reason: Insomnia Naltrexone HCl (Naltrexone Hcl 50 Mg Tablet) 50 mg PO DAILY [facility] Last Admin: 06/24/24 09:14 Dose: 50 mg Nystatin (Nystatin Powder 15 Gm Bottle) 1 appl TOPICAL BID [facility]; Protocol Last Admin: 06/24/24 09:14 Dose: 1 appl Omeprazole (Omeprazole 20 Mg Capsule.Dr) 20 mg PO DAILY@0630 [facility] Last Admin: 06/24/24 05:17 Dose: 20 mg Ondansetron HCl (Ondansetron Hcl 4 Mg/2 Ml Vial) 4 mg IVPUSH Q8H PRN PRN Reason: Nausea and Vomiting Potassium Phos/Sodium Phos (Sodium,Potassium Phosphates Powd.Pack) 1 packet PO QID [facility] Last Admin: 06/24/24 16:31 Dose: 1 packet Sodium Chloride (0.9 % Sodium Chloride Flush 3 Ml Syringe) 3 ml IVFLUSH QSHIFT [facility] Last Admin: 06/24/24 16:32 Dose: 3 ml Tamsulosin HCl (Tamsulosin Hcl 0.4 Mg Capsule) 0.8 mg PO BEDTIME [facility] Last Admin: 06/23/24 21:42 Dose: 0.8 mg Allergies Allergies Allergy/AdvReac Type Severity Reaction Status Date / Time atorvastatin [From LIPITOR] Allergy Unknown HIGH LFTS Verified 06/16/24 18:47 Assessment & Plan Assessment & Plan (1) Metabolic encephalopathy: Status: Acute Code(s): G93.41 - Metabolic encephalopathy (2) Schizo-affective schizophrenia: Status: Acute Code(s): F25.9 - Schizoaffective disorder, unspecified (3) CLL (chronic lymphocytic leukemia): Status: Acute Code(s): C91.10 - Chronic lymphocytic leukemia of B-cell type not having achieved remission Plan Ongoing delirium question gradually resolving state from multifactorial causes lithium toxicity question recent sepsis and respiratory failure. Patient does not reportedly have dementia at baseline. Was on Keppra per Dr. Lim now discontinued unclear if this happened when converted from IV. Doubt NMS as causation Would benefit from additional history unclear if patient would benefit from being on a mood stabilizing alternative such as Depakote or Lamictal would continue Risperdal but unclear when Risperdal constant was last given Patient would most likely benefit from healthcare proxy. There is a syndrome of extended neurological symptoms status post lithium overdose which can include cognition memory ataxia attention and other processes this can resolve over an extended period of time sometimes months. This may require extensive rehab services. Question patient had sharp wave activity may benefit from repeat EEG Call placed to pts sister Total time managing care of this patient today _60___ minutes. Informed Consent: does not understand
[2024-06-24] MEDS: Tamsulosin HCL 0.4 MG CAPSULE 0.8 MG PO (22:39)
[2024-06-24] MEDS: Melatonin 3 MG TABLET 6 MG PO (22:40)
[2024-06-24] MEDS: amLODIPine Besylate 5 MG TABLET PO (22:40)
[2024-06-25] VITALS (13 sets, daily range): BP systolic 101–143; BP diastolic 52–68; PULSE 62–75; RESP 16–20; TEMP 36.1–37.2; O2SAT 92–100; BMI 26.3
[2024-06-25] MEDS: Nystatin Powder 15 GM BOTTLE 1 APPL TOPICAL ×2 (00:28→10:22)
[2024-06-25 01:17] LABS: VITAMIN D (1,25 OH) D3 23 pg/mL; Vit D (1,25-Dihydroxy) Total 23 pg/mL (18-72); Vitamin D (1,25 OH) D2 <8 pg/mL
[2024-06-25] MEDS: Enoxaparin Sodium 40 MG/0.4 ML SYRINGE SUBCUT (04:31)
[2024-06-25] MEDS: Omeprazole 20 MG CAPSULE.DR PO (06:12)
[2024-06-25] MEDS: Levothyroxine Sodium 112 MCG TABLET PO (06:12)
[2024-06-25 06:59] LABS: Anion Gap 12 (12-20); Blood Urea Nitrogen 11 mg/dL (9-16); Carbon Dioxide 25 mmol/L (22-29); Chloride 112 mmol/L (96-108); Creatinine Clr Calc Pharmacy 83.5; Estimated Glomerular Filt Rate > 60; Glucose Random 98 mg/dL (60-115); Sodium 145 mmol/L (135-145)
[2024-06-25] MEDS: Albuterol/Iprat 2.5/0.5MG 3 ML AMPUL.NEB INHALE ×4 (07:50→18:51)
[2024-06-25] MEDS: Naltrexone HCl 50 MG TABLET PO (10:13)
[2024-06-25] MEDS: Benztropine Mesylate 1 MG TABLET PO (10:13)
[2024-06-25] MEDS: Sodium,Potassium Phosphates POWD.PACK 1 PACKET PO ×4 (10:14→21:21)
[2024-06-25] MEDS: 0.9 % Sodium Chloride Flush 3 ML SYRINGE IVFLUSH ×2 (10:18→16:53)
--- NOTE | 2024-06-25 10:20 | MHC.SL.SWA ---
Speech Pathologist Impression: Mild dysphagia secondary to extubation/variable confusion; mentation has been improving, minimal risk for aspiration Risk of Aspiration Due to: Hx of Recent Extubation Dysphasia Diet Status: Liquid Consistency and Strategies for Safe Swallow: Liquid Intake Recommendation: Thin Liquid Intake Strategies: Solid Food Consistency: Dietary Recommendations: Chopped/Advanced (NDD3) Additional Modifications to Solid Foods: No overt s/s of aspiration with intake of various textures. Note mildly prolonged period of mastication on harder solids likely d/t generalized weakness and edentulous status, good oral clearance otherwise noted. Recommend start on CHOPPED/ADVANCED (NDD3) diet for ease of mastication with THIN liquids and pills WHOLE with LIQUID. Patient attempts to feed himself, but has a tendency to drop utensils and cups. Direct supervision recommended at meal time, provide assistance as needed. Oral Medication Intake: Whole with Liquid Please contact the pharmacy regarding appropriate crushable or liquid drug formulations that are available whenever modified delivery is recommended. Compensatory Strategies and Precautions to be Taken for Safe Swallow: Sitting Upright (90 deg) Liquids from Straw Small Bites and Sips Alternate Liquids/Solids Rate of Ingestion Change Supervision While Eating and Drinking for Safe Swallow: Total Supervision (1:1) Foods to Avoid: Swallowing Recommended Treatments: Compens. Strategy Educat. Recommendation for Speech: Inpatient Speech Therapy Comment: [facility] will continue to follow to monitor tolerance of modified diet and re-assess for potential upgrade when appropriate. Frequency/Duration: M-F PRN Date Range for Service Req: Timeline to reassess: Compound Machine Operator Clinican/Clinical Fellow: No Supervisory Statement: I have reviewed and agree with the student/clinical fellow's documentation: N/A Speech Language Pathologist: Nicci Redd M.S. [facility]
[2024-06-25] MEDS: Calcitonin,Salmon,Synth Nasal 3.7 ML BOTTLE 1 SPRAY NOSTRILALT (10:22)
--- NOTE | 2024-06-25 11:19 | P.PNNP_ITS ---
Subjective Subjective Date of Service: 06/25/24 Interval history: 63-year-old gentleman with underlying CLL, hypertension, COPD, schizoaffective, alcoholic hepatitis, on chronically lithium therapy admitted on 06/16/2024 with alteration of mental status deemed to be secondary to lithium toxicity. Patient was also noted to have hypercalcemia with hyponatremia and hyperparathyroidism, IV fluids and cinalcalet for management. hypernatremia has normalized with hydration, currently normal at 145 patient currently able to drink PO fluids and hydrating throughout the day; states he is very thirsty creatinine is recovered at baseline, currently 0.91 this a.m. pt alert and conversant today reports ongoing thirst, drinking lots of water urine output has remains high at 6L over last 64 hours (carlton) reports he is breathing comfortably denies other concerns Physical Exam 2 Vital Signs: Vital Signs: Last Vital Signs Temp 98.9 F 06/25/24 07:32 Pulse 64 06/25/24 09:05 Resp 20 06/25/24 07:52 BP 143/63 H 06/25/24 07:32 Pulse Ox 92 06/25/24 07:32 O2 Del Method Room Air 06/25/24 07:32 O2 Flow Rate 2 06/21/24 01:00 FiO2 30 06/20/24 08:51 BMI result Body Mass Index 26.3 Const: General: cooperative, comfortable, no acute distress, alert and awake HEENT: Mouth: moist mucous membranes abnormal (dry mucous membranes) Neck: Neck: Yes no JVD Resp: Effort & Inspection: normal respiratory effort Auscultation: clear to auscultation bilaterally Cardio: Jugular venous distension: no JVD Rate: regular rate Heart sounds: S1 normal heart sound present and S2 normal heart sound present GI: Palpation (GI): Soft to palpation and nontender : Other: carlton patent and in place General: Yes no CVA tenderness Back/Spine/Pelvis: Back: no CVA tenderness Skin: Lesions: no lesions Rashes: no rashes Extrem: General: No edema Objective Data Labs 06/22/24 05:26 06/25/24 06:10 Labs: Laboratory Results - last 24 hr 06/19/24 06/25/24 05:23 06:10 Hold Purple Top SEE NOTE Sodium 145 Potassium 4.0 Chloride 112 H Carbon Dioxide 25 Anion Gap 12 BUN 11 Creatinine 0.91 Estim Creat Clear Calc 83.5 Estimated GFR > 60 Random Glucose 98 Calcium 10.0 1,25 Dihydroxy Vit D 23 1,25 Dihydroxy Vit D2 <8 1,25 Dihydroxy Vit D3 23 Microbiology Microbiology Results: Microbiology 06/17/24 15:03 Blood - Venous Blood Culture - Final No growth after 5 days. 06/17/24 15:03 Blood - Venous Blood Culture - Final No growth after 5 days. Procedures Date of Service Date of Service: 06/25/24 Assessment & Plan Assessment and plan (1) Hypernatremia: Status: Acute (2) VALENCIA (acute kidney injury): Status: Acute (3) Altered mental status: Status: Acute (4) Hypercalcemia due to a drug: Status: Acute (5) [place] toxicity: Status: Acute Plan initially had VALENCIA likely secondary to lithium toxicity, renal function improved with discontinuation of lithium had subsequent VALENCIA likely secondary to hypoperfusion from aspiration pneumonia renal function has normalized, creatinine 0.88 this a.m. 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 Recommend continuing adequate PO oral hydration. May need cinacalcet 30mg PO daily, but shall continue to monitor and initiate later if needed. Ok for discharge from renal standpoint; recommend he push fluids to ensure sodium levels remain controlled. Will follow up as needed should additional renal concerns arise. Discussed with Dr Martin Time Spent With Patient Time: Total time managing care of this patient today ____ minutes. Progress Note: Quality Stroke Does the patient have a stroke diagnosis?: No
--- NOTE | 2024-06-25 14:46 | MHC.CM.PN ---
DEVIN spoke to pt.'s [facility] collection support specialist today, Stanton [phone]. She said that pt. has had very poor memory for the past year, making it difficult for him to follow a conversation. Pt. lives alone in an apt. [facility] office is in apt. building. He has [facility] [employer] 2 x a week and VNA from [facility]. He stays home most of the time, goes out for appt.s with supportive staff.
--- NOTE | 2024-06-25 15:07 | P.PNIM_ITS ---
Subjective Subjective Date of Service: 06/25/24 Interval History: f/u on encephalopathy, lithium toxicy, recovery from respi failure icu care overall improving, mental status is better, Physical Exam 2 Vital Signs: Vital Signs: Last Vital Signs Temp 98.3 F 06/25/24 11:41 Pulse 68 06/25/24 11:41 Resp 20 06/25/24 11:41 BP 105/61 06/25/24 11:41 Pulse Ox 100 06/25/24 11:41 O2 Del Method Room Air 06/25/24 11:41 O2 Flow Rate 2 06/21/24 01:00 FiO2 30 06/20/24 08:51 BMI result Body Mass Index 26.3 Appearance: Alert.? Oriented X2 . cvs: rrr, [id number] . res: air entry fair , some what diminshed abd: no rebound or guarding ,nt, bs present. ext pulses present , no cyanosis . neuro: moves all ext. Objective Data Active Medications Acetaminophen (Acetaminophen 325 Mg Tablet) 650 mg PO Q6H PRN PRN Reason: Pain, Mild (Pain Scale 1-3), fever or headache Last Admin: 06/23/24 21:43 Dose: 650 mg Documented By: JAQUELIN Albuterol/Ipratropium (Albuterol/Iprat 2.5/0.5mg 3 Ml Ampul.Neb) 3 ml INHALE RQ4H WHILE AWAKE [facility] Last Admin: 06/25/24 11:26 Dose: 3 ml Documented By: TAMERA Amlodipine Besylate (Amlodipine Besylate 5 Mg Tablet) 5 mg PO BEDTIME [facility]; Protocol Last Admin: 06/24/24 22:40 Dose: 5 mg Documented By: AWILDA Benztropine Mesylate (Benztropine Mesylate 1 Mg Tablet) 1 mg PO DAILY [facility] Last Admin: 06/25/24 10:13 Dose: 1 mg Documented By: MANDY Calcitonin [place] (Calcitonin,[place],Synth Nasal 3.7 Ml Bottle) 1 spray NOSTRILALT DAILY [facility] Last Admin: 06/25/24 10:22 Dose: 1 spray Documented By: MANDY Enoxaparin Sodium (Enoxaparin Sodium 40 Mg/0.4 Ml Syringe) 40 mg SUBCUT Q24H [facility] Last Admin: 06/25/24 04:31 Dose: 40 mg Documented By: AWILDA Levothyroxine Sodium (Levothyroxine Sodium 112 Mcg Tablet) 112 mcg PO DAILY@0600 [facility] Last Admin: 06/25/24 06:12 Dose: 112 mcg Documented By: AWILDA Magnesium Hydroxide (Milk Of Magnesia 30 Ml Oral.Susp) 30 ml PO DAILY PRN PRN Reason: Constipation Melatonin (Melatonin 3 Mg Tablet) 6 mg PO BEDTIME PRN PRN Reason: Insomnia Last Admin: 06/24/24 22:40 Dose: 6 mg Documented By: AWILDA Naltrexone HCl (Naltrexone Hcl 50 Mg Tablet) 50 mg PO DAILY [facility] Last Admin: 06/25/24 10:13 Dose: 50 mg Documented By: MANDY Nystatin (Nystatin Powder 15 Gm Bottle) 1 appl TOPICAL BID [facility]; Protocol Last Admin: 06/25/24 10:22 Dose: 1 appl Documented By: MANDY Omeprazole (Omeprazole 20 Mg Capsule.Dr) 20 mg PO DAILY@0630 [facility] Last Admin: 06/25/24 06:12 Dose: 20 mg Documented By: AWILDA Ondansetron HCl (Ondansetron Hcl 4 Mg/2 Ml Vial) 4 mg IVPUSH Q8H PRN PRN Reason: Nausea and Vomiting Potassium Phos/Sodium Phos (Sodium,Potassium Phosphates Powd.Pack) 1 packet PO QID [facility] Last Admin: 06/25/24 13:25 Dose: 1 packet Documented By: MANDY Sodium Chloride (0.9 % Sodium Chloride Flush 3 Ml Syringe) 3 ml IVFLUSH QSHIFT [facility] Last Admin: 06/25/24 10:18 Dose: 3 ml Documented By: MANDY Tamsulosin HCl (Tamsulosin Hcl 0.4 Mg Capsule) 0.8 mg PO BEDTIME [facility] Last Admin: 06/24/24 22:39 Dose: 0.8 mg Documented By: AWILDA Labs 06/22/24 05:26 06/25/24 06:10 Labs: Laboratory Results - last 24 hr 06/19/24 06/25/24 05:23 06:10 Hold Purple Top SEE NOTE Anion Gap 12 Estim Creat Clear Calc 83.5 Estimated GFR > 60 Random Glucose 98 Calcium 10.0 1,25 Dihydroxy Vit D 23 1,25 Dihydroxy Vit D2 <8 1,25 Dihydroxy Vit D3 23 Assessment and Plan (1) Nephrogenic diabetes insipidus: Status: Acute (2) Metabolic encephalopathy: Status: Acute Plan 63-year-old male with pertinent history of CLL, hypertension, schizoaffective disorder, alcoholic liver disease, major depressive disorder, BPH, COPD not on home oxygen, hypothyroidism, mixed hyperlipidemia, gastroesophageal reflux disease admitted for acute metabolic encephalopathy as well as lithium toxic [place] and VALENCIA. He was transfered to ICU due acute hypoxic respiratory failure d/t aspiration PNA and required intubation and mechanical ventilation. Acute toxic metabolic encephalopathy d/t lithium tox, hypoxia, hypernatremia, underlying Psych issues -underlying have resolved and patient making progressive recovery [place] toxicity--resolved and off lithium for now Partial seizure, with abnormal EEG -likely from underlying metabolic derangement -was started on Keppra but stopped on Neuro advise -repeat EEG tommorrow New onset PAF, reverted back to NSR, possibly related metabolic abnormalities.. Echo Nl EF of > 70 was theraepeutic lovenox but stopped after discussion with card and high risk for fall. VALENCIA--d/t dehydration in setting of lithium toxicity Acute urinary retention, has bryan carlton trial chronic leukocytosis due to CLL: improving hypothyroidism tsh boderline low , free t4 -normal(possible euthyroid sick synd) continue levothyroxine Schizoaffective disorder/mood disorder has dilusions/tangentiality on risperidone ,hold lithium due to above Psych following, resperidal consta due tommorrow. GERD-PPI COPD-no acute exacerbation. added nebs ,incentive spro, oob,chest physio. hypertension-fluctuating continue amlodipine 5 mg qhs DVT prophylaxis: Lovenox hospitlisation need-acute toxic metabolic encephalopathy multifactorial, DI sec to lithium toxicity-need renal function/eelctolytic monitering as well as mental status monitering ,cardiology followup as well as Pt eval. Quality Stroke Does the patient have a stroke diagnosis?: No VTE Prior VTE?: No VTE Risk Level:: Medical - moderate - high VTE Device Contraindication: Treatment Not Indicated VTE Drug Contraindication: N/A - Med Ordered
[2024-06-25] MEDS: amLODIPine Besylate 5 MG TABLET PO (21:18)
[2024-06-25] MEDS: Tamsulosin HCL 0.4 MG CAPSULE 0.8 MG PO (21:20)
[2024-06-25] MEDS: Melatonin 3 MG TABLET 6 MG PO (21:21)
[2024-06-26] VITALS (10 sets, daily range): BP systolic 113–140; BP diastolic 56–70; PULSE 55–78; RESP 13–20; TEMP 36.3–36.7; O2SAT 94–98; BMI 27.4
--- NOTE | 2024-06-26 | EEG_ITS ---
FINDINGS: Background activity consists of moderate to high voltage 4 to 5 hertz theta, occasionally with 3 hertz delta over both hemispheres without clear lateralization. No paroxysmal discharges are seen. Photic stimulation is without activation. Hyperventilation was omitted. IMPRESSION: This is an abnormal EEG due to moderate diffuse background slowing consistent with diffuse encephalopathic process. No epileptiform discharges are seen. MD OVI Brennan/LATHA / [id number]
[2024-06-26] MEDS: 0.9 % Sodium Chloride Flush 3 ML SYRINGE IVFLUSH ×4 (00:27→20:40)
[2024-06-26] MEDS: Enoxaparin Sodium 40 MG/0.4 ML SYRINGE SUBCUT (03:33)
[2024-06-26 04:13] LABS: Legionella Ag Urine Not Detected (Not Detected)
[2024-06-26] MEDS: Omeprazole 20 MG CAPSULE.DR PO (06:35)
[2024-06-26] MEDS: Levothyroxine Sodium 112 MCG TABLET PO (06:35)
[2024-06-26 07:02] LABS: Hematocrit 37.9 % (42.0-52.0); Hemoglobin 12.4 g/dl (14.0-18.0); Mean Corpuscular HGB Conc 32.7 g/dl (31.0-36.0); Mean Corpuscular Hemoglobin 31.3 pg (27.0-33.0); Mean Corpuscular Volume 95.7 fL (80.0-98.0); Platelet Count 208 X10*3/uL (160-400); Red Blood Count 3.96 X10*6/uL (4.60-5.80); Red Cell Distribution Width 14.6 % (11.0-16.0); White Blood Count 12.6 X10*3/uL (4.8-10.8)
[2024-06-26] MEDS: Albuterol/Iprat 2.5/0.5MG 3 ML AMPUL.NEB INHALE ×2 (08:31→18:54)
[2024-06-26] MEDS: Naltrexone HCl 50 MG TABLET PO (09:13)
[2024-06-26] MEDS: Benztropine Mesylate 1 MG TABLET PO (09:13)
[2024-06-26] MEDS: Calcitonin,Salmon,Synth Nasal 3.7 ML BOTTLE 1 SPRAY NOSTRILALT (09:17)
[2024-06-26] MEDS: Nystatin Powder 15 GM BOTTLE 1 APPL TOPICAL (09:17)
[2024-06-26] MEDS: Sodium,Potassium Phosphates POWD.PACK 1 PACKET PO ×4 (09:20→20:40)
--- NOTE | 2024-06-26 11:55 | P.PNIM_ITS ---
Subjective Subjective Date of Service: 06/26/24 Interval History: f/u on encephalopathy, lithium toxicy, recovery from respi failure icu care continues to make progress with improvement in mental status Physical Exam 2 Vital Signs: Vital Signs: Last Vital Signs Temp 97.4 F 06/26/24 11:29 Pulse 72 06/26/24 11:29 Resp 14 06/26/24 11:29 BP 131/61 06/26/24 11:29 Pulse Ox 95 06/26/24 11:29 O2 Del Method Room Air 06/26/24 11:29 O2 Flow Rate 2 06/21/24 01:00 FiO2 30 06/20/24 08:51 BMI result Body Mass Index 27.4 Appearance: Alert.? Oriented X2 . cvs: rrr, [id number] . res: air entry fair , some what diminshed abd: no rebound or guarding ,nt, bs present. ext pulses present , no cyanosis . neuro: moves all ext. Objective Data Active Medications Acetaminophen (Acetaminophen 325 Mg Tablet) 650 mg PO Q6H PRN PRN Reason: Pain, Mild (Pain Scale 1-3), fever or headache Last Admin: 06/23/24 21:43 Dose: 650 mg Documented By: JAQUELIN Albuterol/Ipratropium (Albuterol/Iprat 2.5/0.5mg 3 Ml Ampul.Neb) 3 ml INHALE RQ4H WHILE AWAKE [facility] Last Admin: 06/26/24 11:43 Dose: Not Given Documented By: LOW Non-Admin Reason: Patient Refused Amlodipine Besylate (Amlodipine Besylate 5 Mg Tablet) 5 mg PO BEDTIME [facility]; Protocol Last Admin: 06/25/24 21:18 Dose: 5 mg Documented By: AWILDA Benztropine Mesylate (Benztropine Mesylate 1 Mg Tablet) 1 mg PO DAILY [facility] Last Admin: 06/26/24 09:13 Dose: 1 mg Documented By: ROWDY Calcitonin [place] (Calcitonin,[place],Synth Nasal 3.7 Ml Bottle) 1 spray NOSTRILALT DAILY [facility] Last Admin: 06/26/24 09:17 Dose: 1 spray Documented By: ROWDY Enoxaparin Sodium (Enoxaparin Sodium 40 Mg/0.4 Ml Syringe) 40 mg SUBCUT Q24H [facility] Last Admin: 06/26/24 03:33 Dose: 40 mg Documented By: AWILDA Levothyroxine Sodium (Levothyroxine Sodium 112 Mcg Tablet) 112 mcg PO DAILY@0600 [facility] Last Admin: 06/26/24 06:35 Dose: 112 mcg Documented By: AWILDA Magnesium Hydroxide (Milk Of Magnesia 30 Ml Oral.Susp) 30 ml PO DAILY PRN PRN Reason: Constipation Melatonin (Melatonin 3 Mg Tablet) 6 mg PO BEDTIME PRN PRN Reason: Insomnia Last Admin: 06/25/24 21:21 Dose: 6 mg Documented By: AWILDA Naltrexone HCl (Naltrexone Hcl 50 Mg Tablet) 50 mg PO DAILY [facility] Last Admin: 06/26/24 09:13 Dose: 50 mg Documented By: ROWDY Nystatin (Nystatin Powder 15 Gm Bottle) 1 appl TOPICAL BID [facility]; Protocol Last Admin: 06/26/24 09:17 Dose: 1 appl Documented By: ROWDY Omeprazole (Omeprazole 20 Mg Capsule.) 20 mg PO DAILY@0630 [facility] Last Admin: 06/26/24 06:35 Dose: 20 mg Documented By: AWILDA Ondansetron HCl (Ondansetron Hcl 4 Mg/2 Ml Vial) 4 mg IVPUSH Q8H PRN PRN Reason: Nausea and Vomiting Potassium Phos/Sodium Phos (Sodium,Potassium Phosphates Powd.Pack) 1 packet PO QID [facility] Last Admin: 06/26/24 09:20 Dose: 1 packet Documented By: ROWDY Sodium Chloride (0.9 % Sodium Chloride Flush 3 Ml Syringe) 3 ml IVFLUSH QSHIFT [facility] Last Admin: 06/26/24 09:13 Dose: 3 ml Documented By: ROWDY Tamsulosin HCl (Tamsulosin Hcl 0.4 Mg Capsule) 0.8 mg PO BEDTIME [facility] Last Admin: 06/25/24 21:20 Dose: 0.8 mg Documented By: AWILDA Labs 06/26/24 06:39 06/25/24 06:10 Labs: Laboratory Results - last 24 hr 06/17/24 06/26/24 18:06 06:39 MCV 95.7 MCH 31.3 MCHC 32.7 RDW 14.6 Plt Count 208 MPV 10.0 Absolute Nucleated RBC 0.000 Nucleated RBC % (auto) 0.0 Ur L.pneumophila Ag Not Detected Assessment and Plan (1) Nephrogenic diabetes insipidus: Status: Acute (2) Metabolic encephalopathy: Status: Acute Plan 63-year-old male with pertinent history of CLL, hypertension, schizoaffective disorder, alcoholic liver disease, major depressive disorder, BPH, COPD not on home oxygen, hypothyroidism, mixed hyperlipidemia, gastroesophageal reflux disease admitted for acute metabolic encephalopathy as well as lithium toxic [place] and [place]. He was transfered to ICU due acute hypoxic respiratory failure d/t aspiration PNA and required intubation and mechanical ventilation. Acute toxic metabolic encephalopathy d/t lithium tox, hypoxia, hypernatremia, underlying Psych issues -underlying have resolved and patient making progressive recovery [place] toxicity--resolved and off lithium for now Partial seizure, with abnormal EEG -likely from underlying metabolic derangement -was started on Keppra but stopped on Neuro advise -repeat EEG today New onset PAF, reverted back to NSR, possibly related metabolic abnormalities.. Echo Nl EF of > 70 was theraepeutic lovenox but stopped after discussion with card and high risk for fall. VALENCIA--d/t dehydration in setting of lithium toxicity Acute urinary retention, has bryan carlton trial chronic leukocytosis due to CLL: improving hypothyroidism tsh boderline low , free t4 -normal(possible euthyroid sick synd) continue levothyroxine Schizoaffective disorder/mood disorder has dilusions/tangentiality on risperidone consta 50 IM q14 days, due today, not on formulary will try to see if it can be brought from outpatient hold lithium Psych following, GERD-PPI COPD-no acute exacerbation. added nebs ,incentive spro, oob,chest physio. hypertension-fluctuating continue amlodipine 5 mg qhs DVT prophylaxis: Lovenox hospitlisation need-acute toxic metabolic encephalopathy multifactorial, DI sec to lithium toxicity-need renal function/eelctolytic monitering as well as mental status monitering ,cardiology followup as well as Pt eval. Quality Stroke Does the patient have a stroke diagnosis?: No VTE Prior VTE?: No VTE Risk Level:: Medical - moderate - high VTE Device Contraindication: Treatment Not Indicated VTE Drug Contraindication: N/A - Med Ordered
--- NOTE | 2024-06-26 12:33 | MHC.SLORD ---
Speech Language Pathology Order Status: Pt out of room when ST attempted visit, ST to followup tomorrow as pt adequately tolerating NDD3 with thins.
--- NOTE | 2024-06-26 12:57 | HO.WOUND ---
Wound Consult:Follow up 63yr old?male admitted to [facility] on 06/16/24 - See progress notes and H&P for detailed history.? Wound consult follow up for coccyx wound POA.? Photo from 06/18/24 Coccyx Etiology: ?Unstageable Pressure Injury - previously documented Deep tissue Injury ?Present on Admission Wound Bed: linear wound along base - adherent yellow slough Drainage / Odor: None Edges: ? Linear Kim wound: ? Clever tissue - MASD No induration no fluctuance and no s/s of infection at this time Goals of Treatment: ? Off Load Pressure and Triad to protect from friction and moisture along with foam, waffle cushion in place while in chair - recommend limiting sit time to 1-2 hour increments. Recommendations: 1. Turn and Reposition every 2 hours and as needed for patient comfort.? Use pillows or wedges to support off loading positions. 2. Off Load all bony prominences with use of pillows and heel boots if needed.? Apply Preventative foams where needed. ? 3. Monitor for incontinence and moisture control, use barrier creams when needed for prevention and treatment. 4. Provide adequate and supplemental nutrition.? 5. Order low air loss mattress. 6. When applicable maintain blood glucose levels per Providers order. 7. Coccyx - Off Load Pressure - Off Load Pressure? - Cleanse with PH balance spray or wipes, pat dry. ?Apply thin layer of Triad to wound bed. Do not remove all of paste between applications as this may cause further skin damage.? Cover with foam dressing to aid in off loading and protection from friction. Change every 3 days and PRN. Continue waffle cushion in place while in chair - recommend limiting sit time to 1-2 hour increments. Re-consult wound care Nurse for wound deterioration or wound changes.
--- NOTE | 2024-06-26 14:19 | MHC.CM.PN ---
Per rounds and EMR review, pt is not ready for DC. He requires ongoing treatment for Acute toxic encephalopathy. DCP is STR, referrals out and several acceptimg. CM spoke to pt.'s sister / HCP today to ask which STR is her choice. She will discuss with pt's supportive staff who have known him for many years and call me back.
--- NOTE | 2024-06-26 14:34 | MHC.CLN ---
F/U PO INTAKE 50% AVG DIET RX: CARDIAC CHOPPED-APPROPRIATE RECEIVING ENSURE TID TO PROMOTE WOUND HEALING-THIS PRODUCT IS ON A TEMPORARY BACKORDER RECOMMEND CHANGING SUPPLEMENT TO MAGIC CUP TID TO INCREASE KCALS SUPPLEMENT TO PROVIDE 870KCALS, 27G PROTEIN MONITOR PO INTAKE AND ENCOURAGE SUPPLEMENT
[2024-06-26] MEDS: ondansetron HCL 4 MG/2 ML VIAL IVPUSH (16:44)
[2024-06-26] MEDS: amLODIPine Besylate 5 MG TABLET PO (20:39)
[2024-06-26] MEDS: risperiDONE 1 MG TABLET PO (20:39)
[2024-06-26] MEDS: Tamsulosin HCL 0.4 MG CAPSULE 0.8 MG PO (20:39)
[2024-06-26] MEDS: Melatonin 3 MG TABLET 6 MG PO (20:43)
[2024-06-26] MEDS: Acetaminophen 325 MG TABLET 650 MG PO (20:44)
[2024-06-27] VITALS (8 sets, daily range): BP systolic 107–139; BP diastolic 59–69; PULSE 71–90; RESP 18–20; TEMP 36–36.7; O2SAT 88–97; BMI 29.1
[2024-06-27] MEDS: Enoxaparin Sodium 40 MG/0.4 ML SYRINGE SUBCUT (05:04)
[2024-06-27] MEDS: Omeprazole 20 MG CAPSULE.DR PO (06:22)
[2024-06-27] MEDS: Levothyroxine Sodium 112 MCG TABLET PO (06:22)
[2024-06-27] MEDS: Calcitonin,Salmon,Synth Nasal 3.7 ML BOTTLE 1 SPRAY NOSTRILALT (08:17)
[2024-06-27] MEDS: Sodium,Potassium Phosphates POWD.PACK 1 PACKET PO ×2 (08:17→13:10)
[2024-06-27] MEDS: Naltrexone HCl 50 MG TABLET PO (08:17)
[2024-06-27] MEDS: Nystatin Powder 15 GM BOTTLE 1 APPL TOPICAL (08:17)
[2024-06-27] MEDS: risperiDONE 1 MG TABLET PO (08:17)
[2024-06-27] MEDS: Benztropine Mesylate 1 MG TABLET PO (08:17)
[2024-06-27] MEDS: 0.9 % Sodium Chloride Flush 3 ML SYRINGE IVFLUSH (08:18)
[2024-06-27] MEDS: Albuterol/Iprat 2.5/0.5MG 3 ML AMPUL.NEB INHALE ×3 (08:24→15:26)
--- NOTE | 2024-06-27 11:21 | PC.NURSE ---
Martinez removed at 1120 for voiding trial. Patient tolerated well. External catheter in place. Patient due to void at 1730.
[2024-06-27] MEDS: RISPERIDONE 50 MG/2 ML 50 EACH IM (13:09)
--- NOTE | 2024-06-27 13:22 | PM.DS ---
DS: Providers Provider Date of Service: 06/27/24 Date of admission: 06/16/24 20:56 Primary care physician: Galileo Livingston MD Consults: 06/16/24 21:11 Consult to Nephrology Stat Consulting Provider: [facility] Reason for consultation: altered mentation d/t lithium toxicity 06/17/24 13:01 Consult to Psychiatry Routine Consulting Provider: Psych [facility] Reason for consultation: lithium toxicity, bipolar/schizophrenia. Med recommendations 06/17/24 14:22 Consult to Cardiology Routine Consulting Provider: [facility] Reason for consultation: new onset afib 06/18/24 08:15 Consult to Nephrology Routine Consulting Provider: [facility] Reason for consultation: hypernatremia, hypercalcemia Has provider been notified: No 06/18/24 08:20 Consult to Infectious Diseases Routine Consulting Provider: [facility] Reason for consultation: pneumonia,lithium toxicity Has provider been notified: No 06/18/24 11:11 Consult to Wound Care Routine Reason for consultation: Wound to Coccyx 06/18/24 16:13 Consult to Neurology Routine Consulting Provider: [facility] Reason for consultation: toxic metabolic encephalopathy Has provider been notified: No 06/18/24 16:35 Consult to Critical Care Routine Consulting Provider: Gurpreet Gaspar Reason for consultation: goal of care Has provider been notified: No 06/24/24 13:50 Consult to Psychiatry Routine Consulting Provider: Psych [facility] Reason for consultation: schizoaffective dis ,delusions-off lithium due to toxicity/DI Has provider been notified: No DS: Diagnosis Discharge Diagnosis (1) Nephrogenic diabetes insipidus: Status: Acute (2) Metabolic encephalopathy: Status: Acute DS: Summary Hospital Course Hospital Course: Hospital course: A 63-year-old gentleman with a history of chronic lymphocytic leukemia (CLL), hypertension, chronic obstructive pulmonary disease (COPD), schizoaffective disorder, and alcoholic hepatitis, on chronic lithium therapy, was admitted on 06/16/2024 with altered mental status, deemed secondary to lithium toxicity. The patient was also noted to have hypercalcemia, hyponatremia, and hyperparathyroidism. He was evaluated by the nephrology service and started on calcitonin and IV fluids. The hospital course was complicated by worsening hypernatremia and further deterioration of his mental status, necessitating transfer to the intensive care unit on 06/18/2024. He subsequently developed aspiration pneumonia and was intubated for ventilatory support. He was extubated uneventfully on 06/20/2024 and transferred back to the medical floor, where he has continued to recover with progressive improvement in his mental status. Hospital course by problems: Acute toxic metabolic encephalopathy d/t lithium tox, hypoxia, hypernatremia, underlying Psych issues--the underlying issues have been treated and has resulted in the patient encephalopathy now sngificantly much better, he is now alert and oreinted to self and place and month. No agitation. Hypernatremia resolved, lithium toxicity resolved and off lithium Acute hypoxic reapiratory failure /aspiration pneumonia--was intubated briefly, completed antibiotics course [employer] toxicity--resolved and off lithium and should not be reconsider in the future Partial seizure, with abnormal EEG--with no recurrence, probably due above and was started on Keppra but Neuro advised stopping i New onset PAF, reverted back to NSR, possibly related metabolic abnormalities.. Echo Nl EF of > 70 was on theraepeutic lovenox but stopped after discussion with card and high risk for fall and being in normal sinus, VALENCIA--d/t dehydration in setting of lithium toxicity, resolved, last creatine 0.9 on 06/26/24 Acute urinary retention, likely related to AMS, voiding has been removed. continue flomax and Dutasteride chronic leukocytosis due to CLL: improved to follow up on outpatient basis. hypothyroidism tsh boderline low , free t4 -normal(possible euthyroid sick synd) continue levothyroxine Schizoaffective disorder/mood disorder--has dilusions/tangentiality on risperidone consta 50 IM q14 days (last injection 06/27/24) Should avoid lithium in the future, To continue Cogentin, Paxil dose reduced from 40 mg to 20 mg daily To follow up with his prescribers and therapist for med review GERD-PPI COPD-no acute exacerbation. hypertension-continue Norvasc at 5 mg Patient is physically deconditioned and PT recommends short term rehab for less than 30 days Time Attestation Discharge Coordination Time (in mins): 45 Quality: Safe Use of Opioids Does Pt have an Active Cancer Diagnosis on the Problem List?: No Quality: Stroke Does the patient have a stroke diagnosis?: No Physical Exam Vital Signs: Vital Signs: Last Vital Signs Temp 97.4 F 06/27/24 11:13 Pulse 80 06/27/24 11:36 Resp 18 06/27/24 11:36 BP 139/63 06/27/24 11:13 Pulse Ox 94 06/27/24 11:13 O2 Del Method Room Air 06/27/24 11:13 O2 Flow Rate 2 06/21/24 01:00 FiO2 30 06/20/24 08:51 BMI result Body Mass Index 29.1 Discharge Plan Discharge Anticipated Discharge Date/Time: 06/27/24 13:48 Patient Disposition: Xfer SNF Discharge Diagnosis: lithium toxicity, metabolic encephalopathy, renal failure, rehabdomylosis, asppiration pneumona Referrals: Galileo Livingston MD [Primary Care Provider] - 1 Week Discharge Medications: New risperidone microspheres 50 mg/2 mL suspension,extended rel recon 50 mg IM Q14D Qty: 1 0RF acetaminophen 325 mg Tablet 650 mg PO Q6H PRN (Reason: Pain, Mild (Pain Scale 1-3), fever or headache) Qty: 30 0RF ipratropium-albuterol 0.5 mg-3 mg(2.5 mg base)/3 mL Solution For Nebulization 3 ml inhalation RQ4H WHILE AWAKE PRN (Reason: shortness of breath or wheezing) Qty: 90 0RF paroxetine HCl [Paxil] 20 mg tablet 20 mg PO DAILY Qty: 30 0RF Continued omega 8-mxr-iuh-fish oil 300-1,000 mg capsule 1 cap PO BID 90 Days Qty: 180 3RF ezetimibe [Zetia] 10 mg tablet 10 mg PO DAILY Qty: 90 3RF gemfibrozil [Lopid] 600 mg tablet 600 mg PO BID 90 Days Qty: 180 3RF cholecalciferol (vitamin D3) 50 mcg (2,000 unit) capsule 50 mcg PO DAILY 90 Days Qty: 90 3RF vitamin B complex Capsule 1 cap PO DAILY Qty: 90 0RF naltrexone 50 mg tablet 50 mg PO DAILY ferrous sulfate [Iron (ferrous sulfate)] 325 mg (65 mg iron) Tablet 325 mg PO DAILY fluticasone propionate 44 mcg/actuation Hfa Aerosol Inhaler 2 puff INHALATION BID Rx Instructions: administer with spacer amlodipine 5 mg tablet 5 mg PO BEDTIME omeprazole 20 mg capsule,delayed release(DR/EC) 20 mg PO DAILY@0630 levothyroxine 112 mcg tablet 112 mcg PO DAILY@0600 dutasteride 0.5 mg capsule 0.5 mg PO BEDTIME tamsulosin [Flomax] 0.4 mg capsule 0.8 mg PO BEDTIME risperidone microspheres 50 mg/2 mL suspension,extended rel recon 50 mg IM Q2W Qty: 1 0RF Rx Instructions: Last dose 06/27/24 benztropine 1 mg tablet 1 mg PO DAILY Discontinued acetaminophen 650 mg tablet extended release 650 mg PO ONCE PRN (Reason: fever or pain) 30 Days Qty: 30 2RF paroxetine HCl [Paxil] 40 mg tablet 40 mg PO BEDTIME lithium carbonate 300 mg capsule 300 mg PO BID Discharge Orders: Discharge Order (Routine); Ordered 06/27/24 Ordered By: Russell Madison Diet: Advance to usual diet Activity on Discharge: As tolerated Stand Alone Forms: Patient Portal Discharge page Print Language: Wallisian Care Plan Goals: recovery from encephalopathy, lithium toxicity, renal failure, acute hypoxic respiratory failure, seizure, afib Health Concerns: see above Plan of Treatment: to short term rehab for less than 30 minutes [employer] stopped continue Risperidal Consta injection every 14 days, last dose 06/27/24, next 07/12 to follow up with his Psychiatrist and PCP Assessment: see above
--- NOTE | 2024-06-27 14:05 | MHC.CM.PN ---
DC summary has been sent to [facility] via [employer] and faxed to [facility] @ [phone].
--- NOTE | 2024-06-27 16:24 | MHC.SL.SWA ---
Speech Pathologist Impression: Oral phase dysphagia Risk of Aspiration Due to: Hx of Recent Extubation Dysphasia Diet Status: No Change Liquid Consistency and Strategies for Safe Swallow: Liquid Intake Recommendation: Thin Liquid Intake Strategies: Small Sips Solid Food Consistency: Dietary Recommendations: Chopped/Advanced (NDD3) Additional Modifications to Solid Foods: No overt s/s of aspiration with intake of various textures. Note mildly prolonged period of mastication on harder solids likely d/t generalized weakness and edentulous status, good oral clearance otherwise noted. Recommend CHOPPED/ADVANCED (NDD3) diet for ease of mastication with THIN liquids and pills WHOLE with LIQUID. Oral Medication Intake: Whole with Liquid Please contact the pharmacy regarding appropriate crushable or liquid drug formulations that are available whenever modified delivery is recommended. Compensatory Strategies and Precautions to be Taken for Safe Swallow: Sitting Upright (90 deg) Liquids from Straw Small Bites and Sips Alternate Liquids/Solids Rate of Ingestion Change Supervision While Eating and Drinking for Safe Swallow: Intermittent Supervision Swallowing Recommended Treatments: Compens. Strategy Educat. Recommendation for Speech: D/C Wooden Furniture Polisher Clinican/Clinical Fellow: No Supervisory Statement: I have reviewed and agree with the student/clinical fellow's documentation: N/A Speech Language Pathologist: Daisha Dumas M.A., CCC-STORAGE BATTERY INSPECTOR
== END 2024-06-27 16:24 | disposition skilled nursing facility (03) | DRG 91 ==
LOC: HO.ED 20:53 → HO.EDOVER 21:08 → HO.IMC 06-17 20:31 → HO.ICU 06-18 19:34 → HO.IMC 06-21 13:28
PROVIDERS: Internal Medicine; Internal Medicine Hypertension Specialist; Internal Medicine Pulmonary Disease; Physician Assistant; Registered Nurse Community Health; Admitting Provider Student in an Organized Health Care Education/Training Program; Emergency Provider Emergency Medicine; PCP Internal Medicine; Visit Provider Internal Medicine
DX: G92.8 Other toxic encephalopathy (principal); G93.41 Metabolic encephalopathy; J69.0 Pneumonitis due to inhalation of food and vomit; J96.01 Acute respiratory failure with hypoxia; N17.9 Acute kidney failure, unspecified; C91.10 Chronic lymphocytic leukemia of B-cell type not having achieved remission; E87.0 Hyperosmolality and hypernatremia; M62.82 Rhabdomyolysis; N25.1 Nephrogenic diabetes insipidus; J44.9 Chronic obstructive pulmonary disease, unspecified; N40.1 Benign prostatic hyperplasia with lower urinary tract symptoms; E86.0 Dehydration; E21.0 Primary hyperparathyroidism; E86.1 Hypovolemia; R33.8 Other retention of urine; T43.595A Adverse effect of other antipsychotics and neuroleptics, initial encounter; K70.10 Alcoholic hepatitis without ascites; I95.2 Hypotension due to drugs; T42.75XA Adverse effect of unspecified antiepileptic and sedative-hypnotic drugs, initial encounter; I48.0 Paroxysmal atrial fibrillation; R56.9 Unspecified convulsions; I35.0 Nonrheumatic aortic (valve) stenosis; E03.9 Hypothyroidism, unspecified; E78.2 Mixed hyperlipidemia; L89.156 Pressure-induced deep tissue damage of sacral region; F25.9 Schizoaffective disorder, unspecified; K21.9 Gastro-esophageal reflux disease without esophagitis; I10 Essential (primary) hypertension; Z79.51 Long term (current) use of inhaled steroids; Z79.890 Hormone replacement therapy; Z79.899 Other long term (current) drug therapy
CPT/HCPCS: 36415; 36600; 70450; 70551; 71045; 74018; 80048; 80053; 80076; 80178; 80202; 80307; 81001; 82040; 82140; 82306; 82550; 82570; 82652; 82803; 82947; 83605; 83690; 83735; 83880; 83970; 84100; 84156; 84300; 84439; 84443; 84484; 85025; 85027; 87040; 87449; 87640; 87641; 87899; 92526; 92610; 93005; 93306; 94002; 94003; 94799; 95816; 97110; 97116; 97162; 97530; 99285; C1758; J1265; J1650; J1953; J2405; J2470; J2543; J2704; J3370; J3371; J7120; Q9957

== ENCOUNTER 2024-06-16 20:56 | Outpatient (BNV) | payer MEDICARE, MEDICAID, SELFPAY ==
--- NOTE | 2024-06-27 11:32 | MHC.OFFVISPS ---
Intake Intake Visit Reasons: AMS Allergies atorvastatin [From LIPITOR] Allergy (Unknown, Verified 06/16/24 18:47) HIGH LFTS HPI- Psychiatric Chief Complaint: AMS HPI Narrative: Pt Past Psychiatric History: History of schizoaffective disorder with past hospitalizations has been stable on lithium and Risperdal was on Haldol injectable in the past on naltrexone for alcoholism Assessment and Plan Counseling and coordination of Care Details: I spent [] minutes reviewing the record, seeing the patient and documenting in the medical record. Counseling provided to the patient/caregiver as outlined below. Addressed patient/caregiver concerns regarding current medication regime including effective adherence. Addressed patient/caregiver concerns regarding diagnosis and prognosis including accuracy of diagnosis, prognosis over time, impact of diagnosis. Addressed patient/caregiver concerns regarding impact of recent stressors. 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 Encounter for general adult medical examination with abnormal findings Alcoholic liver disease Schizoaffective disorder Depression, major, recurrent (Unknown) Thrombocytosis Obesity Tobacco abuse BPH (benign prostatic hyperplasia) COPD (chronic obstructive pulmonary disease) Lipid disorder Chronic GERD Hypothyroidism Surgical History History of surgery History of hernia repair Family History Father HTN (hypertension) CVD (cardiovascular disease) Sister AIDS Maternal Grandfather Unknown family medical history Maternal Grandmother Unknown family medical history Paternal Grandfather Unknown family medical history Paternal Grandmother Unknown family medical history Sister No problems noted. Sister No problems noted. Sister No problems noted. Social History Household Members: None Housing: Unknown / Unable to assess Are you a primary manager medicare marketing to a significant other at home: No Do you presently have visiting nurse or other home services: Yes Alcohol intake: former Comment: restraints Patient Tobacco Use Status: Tobacco use Unknown Tobacco use type: Cigar Cigarette Packs Per Day: 1 e-Cigarette/Vaping Use: Never Used Substance Use Type: Marijuana Advance Directives Date on File: 08/16/22 service: No Current occupational status: disabled Cognitive needs: No Hearing needs: No Vision needs: No Coding
== END 2024-06-18 07:00 ==
PROVIDERS: Admitting Provider Student in an Organized Health Care Education/Training Program; Emergency Provider Emergency Medicine; Visit Provider Internal Medicine Cardiovascular Disease
DX: I35.0 Nonrheumatic aortic (valve) stenosis (principal); I48.91 Unspecified atrial fibrillation
CPT/HCPCS: 93306

== ENCOUNTER → 2024-06-16 20:56 | Outpatient (BNV) | payer MEDICARE, MEDICAID, SELFPAY | PROVIDERS: Admitting Provider Student in an Organized Health Care Education/Training Program; Emergency Provider Emergency Medicine; Visit Provider Nurse Practitioner Family | DX: E87.0 Hyperosmolality and hypernatremia (principal); T56.891A Toxic effect of other metals, accidental (unintentional), initial encounter; N17.9 Acute kidney failure, unspecified; R41.82 Altered mental status, unspecified; E83.52 Hypercalcemia; T50.905A Adverse effect of unspecified drugs, medicaments and biological substances, initial encounter | CPT/HCPCS: 99222; 99232 ==

== ENCOUNTER → 2024-06-16 20:56 | Outpatient (BNV) | payer MEDICARE, MEDICAID, SELFPAY | PROVIDERS: Admitting Provider Student in an Organized Health Care Education/Training Program; Emergency Provider Emergency Medicine; PCP Internal Medicine; Visit Provider Psychiatry & Neurology Neurology | DX: G93.41 Metabolic encephalopathy (principal) | CPT/HCPCS: 99222 ==

== ENCOUNTER → 2024-06-16 20:56 | Outpatient (BNV) | payer MEDICARE, MEDICAID, SELFPAY | PROVIDERS: Admitting Provider Student in an Organized Health Care Education/Training Program; Emergency Provider Emergency Medicine; PCP Internal Medicine; Visit Provider Internal Medicine Pulmonary Disease | DX: N25.1 Nephrogenic diabetes insipidus (principal); T56.891A Toxic effect of other metals, accidental (unintentional), initial encounter; N17.9 Acute kidney failure, unspecified; E87.0 Hyperosmolality and hypernatremia; T17.900A Unspecified foreign body in respiratory tract, part unspecified causing asphyxiation, initial encounter; E83.52 Hypercalcemia | CPT/HCPCS: 99232; 99291 ==

== ENCOUNTER → 2024-06-16 20:56 | Outpatient (BNV) | payer MEDICARE, MEDICAID, SELFPAY | PROVIDERS: Admitting Provider Student in an Organized Health Care Education/Training Program; Emergency Provider Emergency Medicine; PCP Internal Medicine; Visit Provider Registered Nurse Community Health | DX: J96.01 Acute respiratory failure with hypoxia (principal); N25.1 Nephrogenic diabetes insipidus; T56.891A Toxic effect of other metals, accidental (unintentional), initial encounter; G93.41 Metabolic encephalopathy; N17.9 Acute kidney failure, unspecified | CPT/HCPCS: 31500; 99291; 99499 ==

== ENCOUNTER → 2024-06-16 20:56 | Outpatient (BNV) | payer MEDICARE, MEDICAID, SELFPAY | PROVIDERS: Admitting Provider Student in an Organized Health Care Education/Training Program; Emergency Provider Emergency Medicine; Visit Provider Internal Medicine Cardiovascular Disease | DX: I48.91 Unspecified atrial fibrillation (principal); T17.900A Unspecified foreign body in respiratory tract, part unspecified causing asphyxiation, initial encounter | CPT/HCPCS: 99222; 99232 ==

== ENCOUNTER → 2024-06-16 20:56 | Outpatient (BNV) | payer MEDICARE, MEDICAID, SELFPAY | PROVIDERS: Admitting Provider Student in an Organized Health Care Education/Training Program; Emergency Provider Emergency Medicine; PCP Internal Medicine; Visit Provider Psychiatry & Neurology Psychiatry | DX: F25.9 Schizoaffective disorder, unspecified (principal); G93.41 Metabolic encephalopathy; C91.10 Chronic lymphocytic leukemia of B-cell type not having achieved remission | CPT/HCPCS: 99233 ==

== ENCOUNTER → 2024-06-16 20:56 | Outpatient (BNV) | payer MEDICARE, MEDICAID, SELFPAY | PROVIDERS: Admitting Provider Student in an Organized Health Care Education/Training Program; Emergency Provider Emergency Medicine; Visit Provider Student in an Organized Health Care Education/Training Program | DX: N25.1 Nephrogenic diabetes insipidus (principal); G93.41 Metabolic encephalopathy | CPT/HCPCS: 99223; 99231; 99232; 99233; 99239; 99499 ==

== ENCOUNTER → 2024-06-16 20:56 | Outpatient (BNV) | payer MEDICARE, MEDICAID, SELFPAY | PROVIDERS: Admitting Provider Student in an Organized Health Care Education/Training Program; Emergency Provider Emergency Medicine; PCP Internal Medicine; Visit Provider Internal Medicine | DX: J18.9 Pneumonia, unspecified organism (principal); J96.01 Acute respiratory failure with hypoxia | CPT/HCPCS: 99222 ==

== ENCOUNTER 2024-09-02 11:04 | Outpatient (REF) | payer MEDICARE, MEDICAID, SELFPAY ==
[2024-09-02 11:22] LABS: Basophils Absolute Auto 0.1 X10*3/uL (0.0-0.2); Basophils Percent Auto 0.4 % (0-2); Eosinophils Absolute Auto 0.1 X10*3/uL (0.0-0.4); Eosinophils Percent Auto 1.1 % (0-4); Hematocrit 42.2 % (42.0-52.0); Hemoglobin 13.6 g/dl (14.0-18.0); Imm Gran Abs Auto 0.04 X10*3/uL (0.00-0.03); Imm Gran Pct Auto 0.3 % (0.0-0.4); Lymphocytes Percent Auto 63.2 % (20-40); MANUAL DIFF FLAG SCAN; Mean Corpuscular HGB Conc 32.2 g/dl (31.0-36.0); Mean Corpuscular Hemoglobin 29.1 pg (27.0-33.0); Mean Corpuscular Volume 90.2 fL (80.0-98.0); Mean Platelet Volume 8.8 fL (9.4-12.4); Monocytes Absolute Auto 0.6 X10*3/uL (0.1-1.2); Monocytes Percent Auto 4.5 % (2-11); Neutrophils Absolute Auto 3.8 x10*3/uL (2.0-8.3); Neutrophils Percent Auto 30.5 % (45-73); Platelet Count 234 X10*3/uL (160-400); Red Blood Count 4.68 X10*6/uL (4.60-5.80); Red Cell Distribution Width 13.1 % (11.0-16.0); SCAN SMEAR FLAG 1; White Blood Count 12.4 X10*3/uL (4.8-10.8)
[2024-09-02 11:24] LABS: Lymphocytes Absolute Auto 7.8 X10*3/uL (1.2-4.9)
[2024-09-02 11:55] LABS: SLIDE REVIEW VERIFIED
[2024-09-02 12:21] LABS: Alanine Aminotransferase 14 U/L (0-40); Albumin Level 4.3 g/dL (3.5-5.0); Alkaline Phosphatase 96 U/L (39-117); Anion Gap 11 (12-20); Aspartate Amino Transferase 21 U/L (5-37); Bilirubin Total 0.2 mg/dL (0.0-1.0); Blood Urea Nitrogen 20 mg/dL (9-16); Calcium 9.6 mg/dL (8.4-10.2); Carbon Dioxide 27 mmol/L (22-29); Chloride 105 mmol/L (96-108); Estimated Glomerular Filt Rate > 60; Glucose Random 95 mg/dL (60-115); Potassium 4.6 mmol/L (3.3-5.1); Sodium 138 mmol/L (135-145); Total Protein 6.7 g/dL (6.5-8.0)
== END 2024-09-02 11:05 | disposition home or self-care (01) ==
LOC: HO.BBR 11:04
PROVIDERS: PCP Internal Medicine; Visit Provider Internal Medicine Medical Oncology
DX: D75.1 Secondary polycythemia (principal)
CPT/HCPCS: 36415; 80053; 85014; 85018; 85025; 99195

== ENCOUNTER 2024-10-02 11:54 | Outpatient (AMB) | payer MEDICARE, MEDICAID, SELFPAY ==
[2024-10-02 11:57] VITALS: BP 106/62; PULSE 62; O2SAT 96; BMI 31.3
--- NOTE | 2024-10-02 11:57 | MHC.PC.OV ---
Vital Signs 10/02/24 11:57 Height 5 ft 10 in Weight 218 lb BMI 31.3 BP 106/62 Blood Pressure Location Rt brachial Position Sitting Pulse 62 Pulse Source Pulse Oximeter Pulse Oximetry (%) 96 Oxygen Delivery Method Room Air Intake Visit Reasons: Alcoholic, liver disease Allergies atorvastatin [From LIPITOR] Allergy (Unknown, Verified 10/02/24 12:04) HIGH LFTS Medication List - Last Reconciled 10/02/24 by Binh Lim MD acetaminophen 650 mg (2 x 325 mg) PO Q6H PRN amlodipine 5 mg PO BEDTIME benztropine 1 mg PO DAILY cholecalciferol (vitamin D3) 50 mcg PO DAILY 90 days dutasteride 0.5 mg PO DAILY 90 days dutasteride 0.5 mg PO DAILY 90 days ezetimibe (Zetia) 10 mg PO DAILY ferrous sulfate (Iron (ferrous sulfate)) 325 mg PO DAILY ferrous sulfate 325 mg PO CONT. PER PROTOCOL fluticasone propionate 44 mcg/actuation 2 puffs inhalation BID gemfibrozil (Lopid) 600 mg PO BID 90 days ipratropium-albuterol 0.5 mg-3 mg(2.5 mg base)/3 mL 3 mL inhalation RQ4H WHILE AWAKE PRN levothyroxine 112 mcg PO DAILY@0600 naltrexone 50 mg PO DAILY omega 1-nwy-kgw-fish oil 300-1,000 mg 1 cap PO BID 90 days omeprazole 20 mg PO DAILY@0630 paroxetine HCl (Paxil) 20 mg PO DAILY risperidone microspheres ER 50 mg (2 mL) IM Q2W risperidone microspheres ER 50 mg (2 mL) IM Q14D tamsulosin (Flomax) 0.8 mg PO BEDTIME vitamin B complex 1 cap PO DAILY Tobacco use date assessed: 10/02/24 Fall risk assessment: No Falls in past year Last assessed Fall Risk: 10/02/24 Dental Screening Dental Screen Date: 10/02/24 Did you have a dental visit in the last 12 months?: No Did you have a dental problem in the last 6 months where you did not have access to dental care?: No Was dental information given to patient?: Patient declined HPI Alcoholic, liver disease HPI Details Patient is 63-year-old gentleman came in today for follow-up appointment He was in hospital 06/16/2024 Patient was brought in by his media relations manager when he was found to not acting himself Patient is poor historian and has a psychiatric illness patient is taking psychiatric medications through Psychiatry He was found to be confused in emergency room, found to have high level of lithium and kept asking for more water He suffers from chronic renal insufficiency which was stable His creatinine level was 1.73 CT scan of head showed no acute intracranial hemorrhage There was [id number]-tj-cxliufci underlying microangiopathy and generalized cerebral volume loss He was treated for lithium toxicity and was admitted as an inpatient Patient was discharged on 06/27/2024 In the hospital he had nephrology consultation done for nephropathy and lithium toxicity Psychiatric consultation for ongoing bipolar/schizophrenia management Cardiology consultation for new onset AFib Infectious disease consultation for pneumonia Wound Care consultation for coccyx wound Neurology consultation for toxic metabolic encephalopathy 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 Gaspar Patient reverted to normal sinus rhythm once his metabolic abnormalities were resolved Echocardiogram showed ejection fraction more than 70 Therapeutic Lovenox was stopped as patient is high risk for fall Acute kidney injury resolved with last creatinine of 0.9 on 06/26/2024 Patient is also on Flomax and dutasteride CLL: Improved and need outpatient follow-up Patient is also on levothyroxine for borderline low TSH level GERD: Continue PPI Hypertension: Continue Norvasc 5 mg Osteoarthritis primary: Patient had cortisone injection in his left knee and is feeling better He was sent for short-term rehab And was discharged eventually 06/27/2024 His new medication at discharge were risperidone 50 mg I am Q 14 day Acetaminophen as needed Paroxetine 20 mg once a day Ipratropium albuterol nebulizer treatment as needed He other medications are Zetia Gemfibrozil Vitamin-D vitamin-B iron supplement Flonase nasal spray Amlodipine 5 mg Omeprazole 20 mg Levothyroxine 112 mcg Prostate medication [place] was discontinued He came in with his media relations manager today he is doing much better feeling much better and offer no new complaints Patient will return in three-month before physical exam appointment Labs done recently reviewed, kidney functions are back to normal, his heart rate is regular today He need a new referral to Podiatry which I have placed for her COUNTS INCLUDE 234 BEDS AT THE [facility] Medical History CLL (chronic lymphocytic leukemia) History of basal cell carcinoma (BCC) Nicotine dependence, cigarettes, uncomplicated Hypertension, essential Schizo-affective schizophrenia Hypercalcemia due to lithium Non-toxic multinodular goiter Vitamin D deficiency 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 Alcoholic liver disease Depression, major, recurrent Thrombocytosis Obesity BPH (benign prostatic hyperplasia) COPD (chronic obstructive pulmonary disease) Lipid disorder Chronic GERD Hypothyroidism Surgical History History of esophagogastroduodenoscopy (EGD) History of colonoscopy History of basal cell carcinoma (BCC) excision History of surgery History of hernia repair Family History Father HTN (hypertension) CVD (cardiovascular disease) Sister AIDS Maternal Grandfather Unknown family medical history Maternal Grandmother Unknown family medical history Paternal Grandfather Unknown family medical history Paternal Grandmother Unknown family medical history Sister No problems noted. Sister No problems noted. Sister No problems noted. Social History Household Members: None Housing: Unknown / Unable to assess Are you a primary home care administrator to a significant other at home: No Do you presently have visiting nurse or other home services: Yes Alcohol intake: former Comment: restraints Patient Tobacco Use Status: Tobacco use Unknown Tobacco use type: Cigar Cigarette Packs Per Day: 1 e-Cigarette/Vaping Use: Never Used Substance Use Type: Marijuana Advance Directives Date on File: 08/16/22 service: No Current occupational status: disabled Cognitive needs: No Hearing needs: No Vision needs: No Questionnaire PHQ-9 Over the last 2 weeks, how often have you been bothered by any of the following problems? 1. Little interest or pleasure in doing things: not at all 2. Feeling down, depressed, or hopeless: several days 3. Trouble falling or staying asleep, or sleeping too much: not at all 4. Feeling tired or having little energy: several days 5. Poor appetite or overeating: not at all 6. Feeling bad about yourself - or that you are a failure or have let yourself or your family down: not at all 7. Trouble concentrating on things, such as reading the newspaper or watching television: several days 8. Moving or speaking so slowly that other people could have noticed. Or the opposite - being so fidgety or restless that you have been moving around a lot more than usual: not at all 9. Thoughts that you would be better off or of hurting yourself in some way: not at all Total score: 3 Depression Screening Interpretation: Negative Depression Screening Done: Yes 15842 - PHQ-9 Billing: Yes Source: Developed by Drs. Jimy Franco, Madison Berry, Tyler Guy and colleagues, with an educational herb from [employer] Thrive Questionnaire Date Thrive assessed: 10/02/24 I am a: Parent/Caregiver What is your living situation today?: I choose not to answer this question Within the past 12 months, did the food you bought not last and you didn't have the money to get more?: I choose not to answer this question Within the past 12 months, did you worry whether your food would run out before you got money to buy more?: I choose not to answer this question Do you have trouble paying for medicines?: I choose not to answer this question Do you have trouble getting transportation to medical appointments?: I choose not to answer this question Do you have trouble paying your heating and electricity bill?: I choose not to answer this question Do you have trouble taking care of your child, family member or friend?: I choose not to answer this question Do you have trouble with day-to-day activities such as bathing, preparing meals, shopping, managing finances, etc.?: I choose not to answer this question Are you currently unemployed and looking for a job?: I choose not to answer this question Are you interested in more education?: I choose not to answer this question Please select the resources that you would like help with: None Currently or been in a relationship where the following occur: I choose not to answer THRIVE Score: 0 AUDIT C Alcohol Use Questionnaire (AUDIT-C) 1. How often do you have a drink containing alcohol?: Never 3. How often do you have six or more drinks on one occasion?: Never Total Score: 0 Score Reviewed/Action Taken: Yes PATSY-7 AMB Questionnaire PATSY-7 Date PATSY - 7 assessed: 10/02/24 Feeling nervous, anxious, or on edge: 0 = Not at all Not being able to stop or control worryin = Not at all Worrying too much about different things: 0 = Not at all Trouble relaxin = Not at all Being so restless that it is hard to sit still: 0 = Not at all Becoming easily annoyed or irritable: 0 = Not at all Feeling afraid as if something awful might happen: 0 = Not at all Total PATSY-7 score (0-4 normal; 5-9 mild; 10-14 moderate; 15-21 severe): 0 Source: Developed by Drs. Jimy Franco, Madison Berry, Tyler Guy and colleagues, with an educational herb from [employer] PATSY-7 Assessment Billing PATSY-7 Assessment Tool: PATSY-7 Assessment 44222 Review of Systems Const Denies chills and Denies fever(s) ENT Denies epistaxis and Denies nasal discharge Card Denies chest pain Resp Denies chest congestion, Denies cough and Denies hemoptysis GI Denies diarrhea and Denies nausea Skin/Breast Denies rash Neuro Reports no additional complaints Psych Reports no additional complaints Endo Reports no additional complaints Physical exam (Primary Care) Vital Signs: Last Vital Signs Pulse 62 10/02/24 11:57 BP 106/62 10/02/24 11:57 Pulse Ox 96 10/02/24 11:57 Oxygen Delivery Method Room Air 10/02/24 11:57 BMI result Body Mass Index 31.3 Tobacco/Smoking Status: Tobacco use Status Tobacco use date assessed 10/02/24 10/02/24 12:10 Patient Tobacco Use Status Tobacco use Unknown 10/02/24 12:00 Tobacco use type Cigar 10/02/24 12:00 e-Cigarette/Vaping Use Never Used 10/02/24 12:00 PHQ-9: PHQ-9 Score PHQ-9: Total score 3 10/02/24 12:31 Depression Screening Interpretation: Negative Thrive Assessment: Date of Thrive Assessment Date Thrive assessed 10/02/24 10/02/24 12:10 Currently or been in a relationship where the following occur: I choose not to answer Const General: cooperative, comfortable and no acute distress Orientation/consciousness: patient oriented x3 HENMT Head: Yes normocephalic Eyes General: appearance normal, both eyes and all related structures Neck Neck: Yes supple Resp Effort & Inspection: normal respiratory effort, no cough and no stridor Cardio Rhythm: regular rhythm Heart sounds: S1 normal heart sound present and S2 normal heart sound present Skin General skin exam: turgor normal Neuro General: patient oriented x3, tone normal and moves all extremities Coding Level of Care Code Est Pt Level 5 (99999) Diagnoses Hospital discharge follow-up Z09 Hypothyroidism, unspecified type E03.9 Hypothyroidism type: unspecified Benign prostatic hyperplasia with urinary frequency N40.1; R35.0 Lower urinary tract symptom detail: urinary frequency Lower urinary tract symptom presence: symptoms present Other emphysema J43.8 COPD type: emphysema Emphysema type: other Alcoholic liver disease K70.9 Primary osteoarthritis of left knee M17.12 Osteoarthritis type: primary Incomplete emptying of bladder due to benign prostatic hyperplasia N40.1; R33.9 Lipid disorder E78.9 Tobacco abuse Z72.0 Bilateral foot pain M79.671; M79.672 Chronic GERD K21.9 CLL (chronic lymphocytic leukemia) C91.10 Class 1 obesity due to excess calories with serious comorbidity and body mass index (BMI) of 31.0 to 31.9 in adult E66.09; Z68.31 Body mass index: BMI 31.0-31.9 Obesity classification: adult class 1 (BMI 30 - 34.9) Obesity type: due to excess calories Serious obesity comorbidity presence: with serious comorbidity Learning disability F81.9 Additional Codes PATSY-7 Assessment Billing - PATSY-7 Assessment Tool: PATSY-7 Assessment 60400 ([id number]) PHQ-9 - 08540 - PHQ-9 Billing: Yes ([id number]) Assessment & Plan Assessment & Plan (1) Hospital discharge follow-up: Code(s): Z09 - Encounter for follow-up examination after completed treatment for conditions other than malignant neoplasm Category: Medical (2) Hypothyroidism: Code(s): E03.9 - Hypothyroidism, unspecified Category: Medical Qualifiers: Hypothyroidism type: unspecified Qualified Code(s): E03.9 - Hypothyroidism, unspecified (3) BPH (benign prostatic hyperplasia): Code(s): N40.0 - Benign prostatic hyperplasia without lower urinary tract symptoms Category: Medical Qualifiers: Lower urinary tract symptom detail: urinary frequency Lower urinary tract symptom presence: symptoms present Qualified Code(s): N40.1 - Benign prostatic hyperplasia with lower urinary tract symptoms; R35.0 - Frequency of micturition (4) COPD (chronic obstructive pulmonary disease): Code(s): J44.9 - Chronic obstructive pulmonary disease, unspecified Category: Medical Qualifiers: COPD type: emphysema Emphysema type: other Qualified Code(s): J43.8 - Other emphysema (5) Alcoholic liver disease: Code(s): K70.9 - Alcoholic liver disease, unspecified Category: Medical (6) Osteoarthritis of left knee: Code(s): M17.12 - Unilateral primary osteoarthritis, left knee Category: Medical Qualifiers: Osteoarthritis type: primary Qualified Code(s): M17.12 - Unilateral primary osteoarthritis, left knee (7) Incomplete emptying of bladder due to benign prostatic hyperplasia: Code(s): N40.1 - Benign prostatic hyperplasia with lower urinary tract symptoms; R33.9 - Retention of urine, unspecified Category: Medical (8) Lipid disorder: Code(s): E78.9 - Disorder of lipoprotein metabolism, unspecified Category: Medical (9) Tobacco abuse: Code(s): Z72.0 - Tobacco use Category: Medical (10) Bilateral foot pain: Code(s): M79.671 - Pain in right foot; M79.672 - Pain in left foot Category: Medical (11) Chronic GERD: Code(s): K21.9 - Gastro-esophageal reflux disease without esophagitis Category: Medical (12) CLL (chronic lymphocytic leukemia): Code(s): C91.10 - Chronic lymphocytic leukemia of B-cell type not having achieved remission Category: Medical (13) Obesity: Code(s): E66.9 - Obesity, unspecified Category: Medical Qualifiers: Body mass index: BMI 31.0-31.9 Obesity classification: adult class 1 (BMI 30 - 34.9) Obesity type: due to excess calories Serious obesity comorbidity presence: with serious comorbidity Qualified Code(s): E66.09 - Other obesity due to excess calories; Z68.31 - Body mass index [BMI] 31.0-31.9, adult (14) Learning disability: Code(s): F81.9 - Developmental disorder of scholastic skills, unspecified Category: Social Hx Plan Patient is 63-year-old gentleman came in today for follow-up appointment He was in hospital 06/16/2024 Patient was brought in by his media relations manager when he was found to not acting himself Patient is poor historian and has a psychiatric illness patient is taking psychiatric medications through Psychiatry He was found to be confused in emergency room, found to have high level of lithium and kept asking for more water He suffers from chronic renal insufficiency which was stable His creatinine level was 1.73 CT scan of head showed no acute intracranial hemorrhage There was yjla-[id number]-gpnhetws underlying microangiopathy and generalized cerebral volume loss He was treated for lithium toxicity and was admitted as an inpatient Patient was discharged on 06/27/2024 In the hospital he had nephrology consultation done for nephropathy and lithium toxicity Psychiatric consultation for ongoing bipolar/schizophrenia management Cardiology consultation for new onset AFib Infectious disease consultation for pneumonia Wound Care consultation for coccyx wound Neurology consultation for toxic metabolic encephalopathy 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 Gaspar Patient reverted to normal sinus rhythm once his metabolic abnormalities were resolved Echocardiogram showed ejection fraction more than 70 Therapeutic Lovenox was stopped as patient is high risk for fall Acute kidney injury resolved with last creatinine of 0.9 on 06/26/2024 Patient is also on Flomax and dutasteride CLL: Improved and need outpatient follow-up Patient is also on levothyroxine for borderline low TSH level GERD: Continue PPI Hypertension: Continue Norvasc 5 mg Osteoarthritis primary: Patient had cortisone injection in his left knee and is feeling better He was sent for short-term rehab And was discharged eventually 06/27/2024 His new medication at discharge were risperidone 50 mg I am Q 14 day Acetaminophen as needed Paroxetine 20 mg once a day Ipratropium albuterol nebulizer treatment as needed He other medications are Zetia Gemfibrozil Vitamin-D vitamin-B iron supplement Flonase nasal spray Amlodipine 5 mg Omeprazole 20 mg Levothyroxine 112 mcg Prostate medication [place] was discontinued He came in with his media relations manager today he is doing much better feeling much better and offer no new complaints Patient will return in three-month before physical exam appointment Labs done recently reviewed, kidney functions are back to normal, his heart rate is regular today He need a new referral to Podiatry which I have placed for her 45 minutes spent in care of this patient Orders: Referrals Podiatry Referral M79.671 - Pain in right foot, M79.672 - Pain in left foot
== END 2024-10-02 12:30 | disposition home or self-care (01) ==
PROVIDERS: PCP Internal Medicine; Visit Provider Internal Medicine
DX: Z09 Encounter for follow-up examination after completed treatment for conditions other than malignant neoplasm (principal); E03.9 Hypothyroidism, unspecified; N40.1 Benign prostatic hyperplasia with lower urinary tract symptoms; R35.0 Frequency of micturition; J43.8 Other emphysema; K70.9 Alcoholic liver disease, unspecified; M17.12 Unilateral primary osteoarthritis, left knee; R33.9 Retention of urine, unspecified; E78.9 Disorder of lipoprotein metabolism, unspecified; Z72.0 Tobacco use; M79.671 Pain in right foot; C91.10 Chronic lymphocytic leukemia of B-cell type not having achieved remission; M79.672 Pain in left foot; K21.9 Gastro-esophageal reflux disease without esophagitis; E66.09 Other obesity due to excess calories; Z68.31 Body mass index [BMI] 31.0-31.9, adult; F81.9 Developmental disorder of scholastic skills, unspecified

== ENCOUNTER → 2024-10-02 11:54 | Outpatient (BNVA) | payer MEDICARE, MEDICAID, SELFPAY | PROVIDERS: PCP Internal Medicine; Visit Provider Internal Medicine | DX: N40.1 Benign prostatic hyperplasia with lower urinary tract symptoms (principal); E03.9 Hypothyroidism, unspecified; R35.0 Frequency of micturition; J43.8 Other emphysema; K70.9 Alcoholic liver disease, unspecified; M17.12 Unilateral primary osteoarthritis, left knee; R33.8 Other retention of urine; E78.9 Disorder of lipoprotein metabolism, unspecified; M79.671 Pain in right foot; M79.672 Pain in left foot; K21.9 Gastro-esophageal reflux disease without esophagitis; C91.10 Chronic lymphocytic leukemia of B-cell type not having achieved remission; E66.09 Other obesity due to excess calories; F81.9 Developmental disorder of scholastic skills, unspecified; Z09 Encounter for follow-up examination after completed treatment for conditions other than malignant neoplasm; Z68.31 Body mass index [BMI] 31.0-31.9, adult; Z72.0 Tobacco use | CPT/HCPCS: 96127; 99212 ==

== ENCOUNTER 2024-10-28 10:35 | Outpatient (REF) | payer MEDICARE, MEDICAID, SELFPAY | END 2024-10-28 10:36 | disposition home or self-care (01) | LOC: HO.CT 10:35 | PROVIDERS: PCP Internal Medicine; Visit Provider Physician Assistant Medical | DX: Z12.2 Encounter for screening for malignant neoplasm of respiratory organs (principal); F17.210 Nicotine dependence, cigarettes, uncomplicated | CPT/HCPCS: 71271 ==

== ENCOUNTER → 2024-10-28 10:38 | Outpatient (BNV) | payer MEDICARE, MEDICAID, SELFPAY | PROVIDERS: PCP Internal Medicine; Visit Provider Nuclear Medicine | DX: F17.210 Nicotine dependence, cigarettes, uncomplicated (principal) | CPT/HCPCS: 71271 ==

== ENCOUNTER 2024-11-15 12:36 | Outpatient (AMB) | payer MEDICARE, MEDICAID, SELFPAY ==
[2024-11-15 12:41] VITALS: BP 134/68; PULSE 72; RESP 16; TEMP 36.5; O2SAT 95; BMI 30.8
--- NOTE | 2024-11-15 12:41 | A.OFFPC_ITS ---
Vital Signs 11/15/24 12:41 Height 5 ft 10 in Weight 214 lb 8 oz BMI 30.8 BP 134/68 Blood Pressure Location Rt brachial Position Sitting Respiration 16 Pulse 72 Pulse Source Pulse Oximeter Temp 97.7 F Temp Source Oral Pulse Oximetry (%) 95 Oxygen Delivery Method Room Air Intake Visit Reasons: Care review F/U Allergies atorvastatin [From LIPITOR] Allergy (Unknown, Verified 10/02/24 12:04) HIGH LFTS Medication List - Last Reconciled 11/15/24 by Binh Lim MD acetaminophen 650 mg (2 x 325 mg) PO Q6H PRN amantadine HCl 100 mg PO BID amlodipine 5 mg PO BEDTIME cholecalciferol (vitamin D3) 50 mcg PO DAILY 90 days dutasteride 0.5 mg PO DAILY 90 days ezetimibe (Zetia) 10 mg PO DAILY ferrous sulfate (Iron (ferrous sulfate)) 325 mg PO DAILY ferrous sulfate 325 mg PO DAILY fluticasone propionate 44 mcg/actuation 2 puffs inhalation BID gemfibrozil (Lopid) 600 mg PO BID 90 days ipratropium-albuterol 0.5 mg-3 mg(2.5 mg base)/3 mL 3 mL inhalation RQ4H WHILE AWAKE PRN levothyroxine 112 mcg PO DAILY@0600 melatonin mg PO naltrexone 50 mg PO DAILY omega 1-kmd-qqh-fish oil 300-1,000 mg 1 cap PO BID 90 days omeprazole 20 mg PO DAILY@0630 paroxetine HCl (Paxil) 20 mg PO DAILY risperidone microspheres ER 50 mg (2 mL) IM Q2W tamsulosin (Flomax) 0.8 mg PO BEDTIME vitamin B complex 1 cap PO DAILY Tobacco use date assessed: 11/15/24 Fall risk assessment: No Falls in past year Last assessed Fall Risk: 11/15/24 Dental Screening Dental Screen Date: 11/15/24 Did you have a dental visit in the last 12 months?: No Did you have a dental problem in the last 6 months where you did not have access to dental care?: No Was dental information given to patient?: No HPI Care review F/U HPI Details History - The patient is a 63-year-old male with a history of psychiatric illness, hypertension, BPH, rash , hypothyroidism, lipid disorder, hypertension presenting with an umbilical hernia. - Planning to undergo surgical correctio n and has been experiencing episodic soreness. - The patient is also experiencing vivid dreams and nightmares. - These have an impact on his sleep qual ity. - Initial bouts began before any recent changes in his psychiatric medication. Problem List - Umbilical Hernia - Vivid Dreams/Nightmares - Tremors (resolved) - Dermatological issue (possible dry ski n) has appointment with Dermatology - Presence of a cyst or lymph node right side close to neck nontender - lipid disorder - hypothyroidism - hypertension - psychiatric illness Diagnostic results - Labs performed in August; results re ported as normal. [place] of Care - Follow-ups and interactions with urolo gy, dermatology, and psychiatry discussed. - Care nurses involved, previously men tioned in care. Patient Instructions - Await a call to confirm and potentiall y adjust time for the umbilical hernia surgery appointment. - Continue to monitor for any exacerbati ons of dermatological symptoms and attend scheduled dermatology appointment. - continue medications Review of Systems General: No fever no chills neurological: No headaches no dizziness ear nose throat: No sore throat no hearing difficulty no ear pain cardiovascular: No syncope, no chest pain, no palpitations gastrointestinal: No nausea vomiting or diarrhea endocrine: No polyuria polydipsia no heat intolerance genitourinary: No dysuria skin: No new complaints Physical Exam general: In distress due to nightmares HEENT: No acute findings neck: Supple respiratory system: Lungs are fine, able to talk in full sentences, no audible wheeze, no stridor cardiovascular: S1-S2 gastrointestinal: No pain, large umbilical hernia reducible extremities: Sore knee, dry skin patches on the arm DIGITAL RETOUCHER: Alert, awake, oriented x3, motor sensory intact skin: Dry skin patches on the right arm, normal turgor [facility] Medical History (Updated 11/15/24 @ 13:26 by Binh Lim MD) Hypertension, essential Schizo-affective schizophrenia CLL (chronic lymphocytic leukemia) History of basal cell carcinoma (BCC) Nicotine dependence, cigarettes, uncomplicated Hypercalcemia due to lithium Non-toxic multinodular goiter Vitamin D deficiency 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 Alcoholic liver disease Depression, major, recurrent Thrombocytosis Obesity BPH (benign prostatic hyperplasia) COPD (chronic obstructive pulmonary disease) Lipid disorder Chronic GERD Hypothyroidism Surgical History History of esophagogastroduodenoscopy (EGD) History of colonoscopy History of basal cell carcinoma (BCC) excision History of surgery History of hernia repair Family History Father HTN (hypertension) CVD (cardiovascular disease) Sister AIDS Maternal Grandfather Unknown family medical history Maternal Grandmother Unknown family medical history Paternal Grandfather Unknown family medical history Paternal Grandmother Unknown family medical history Sister No problems noted. Sister No problems noted. Sister No problems noted. Social History Household Members: None Housing: Unknown / Unable to assess Are you a primary hospice care transitions coordinator to a significant other at home: No Do you presently have visiting nurse or other home services: Yes Alcohol intake: former Comment: restraints Patient Tobacco Use Status: Current everyday Tobacco user Tobacco use type: Cigar Cigarette Packs Per Day: 1 e-Cigarette/Vaping Use: Never Used Substance Use Type: Marijuana Advance Directives Date on File: 08/16/22 service: No Current occupational status: disabled Cognitive needs: No Hearing needs: No Vision needs: Yes Questionnaire PHQ-9 Over the last 2 weeks, how often have you been bothered by any of the following problems? 1. Little interest or pleasure in doing things: not at all 2. Feeling down, depressed, or hopeless: several days 3. Trouble falling or staying asleep, or sleeping too much: nearly every day 4. Feeling tired or having little energy: nearly every day 5. Poor appetite or overeating: not at all 6. Feeling bad about yourself - or that you are a failure or have let yourself or your family down: several days 7. Trouble concentrating on things, such as reading the newspaper or watching television: several days 8. Moving or speaking so slowly that other people could have noticed. Or the opposite - being so fidgety or restless that you have been moving around a lot more than usual: nearly every day 9. Thoughts that you would be better off or of hurting yourself in some way: not at all Total score: 12 Depression Screening Interpretation: Positive Depression Screening Follow-up: Existing condition and In treatment Depression Screening Done: Yes 71755 - PHQ-9 Billing: Yes Source: Developed by Drs. Jimy Franco, Madison Berry, Tyler Guy and colleagues, with an educational herb from [employer]. Thrive Questionnaire Date Thrive assessed: 10/02/24 I am a: Parent/Caregiver What is your living situation today?: I choose not to answer this question Within the past 12 months, did the food you bought not last and you didn't have the money to get more?: I choose not to answer this question Within the past 12 months, did you worry whether your food would run out before you got money to buy more?: I choose not to answer this question Do you have trouble paying for medicines?: I choose not to answer this question Do you have trouble getting transportation to medical appointments?: I choose not to answer this question Do you have trouble paying your heating and electricity bill?: I choose not to answer this question Do you have trouble taking care of your child, family member or friend?: I choose not to answer this question Do you have trouble with day-to-day activities such as bathing, preparing meals, shopping, managing finances, etc.?: I choose not to answer this question Are you currently unemployed and looking for a job?: I choose not to answer this question Are you interested in more education?: I choose not to answer this question Please select the resources that you would like help with: None Currently or been in a relationship where the following occur: I choose not to answer THRIVE Score: 0 PATSY-7 AMB Questionnaire PATSY-7 Date PATSY - 7 assessed: 10/02/24 Source: Developed by Drs. Jimy Franco, Madison Berry, Tyler Guy and colleagues, with an educational herb from [employer]. Physical exam (Primary Care) Vital Signs: Last Vital Signs Temp 97.7 F 11/15/24 12:41 Pulse 72 11/15/24 12:41 Resp 16 11/15/24 12:41 BP 134/68 11/15/24 12:41 Pulse Ox 95 11/15/24 12:41 Oxygen Delivery Method Room Air 11/15/24 12:41 BMI result Body Mass Index 30.8 Tobacco/Smoking Status: Tobacco use Status Tobacco use date assessed 11/15/24 11/15/24 12:53 Patient Tobacco Use Status Current everyday Tobacco 11/15/24 12:53 Tobacco use type Cigar 02/28/25 12:53 e-Cigarette/Vaping Use Never Used 11/15/24 12:53 PHQ-9: PHQ-9 Score PHQ-9: Total score 12 11/15/24 13:04 Depression Screening Interpretation: Positive Depression Screening Follow-up: Existing condition and In treatment Thrive Assessment: Date of Thrive Assessment Date Thrive assessed 10/02/24 11/15/24 12:53 Currently or been in a relationship where the following occur: I choose not to answer Coding Level of Care Code Est Pt Level 4 (83253) Complex EM visit Add On G2211 Diagnoses Umbilical hernia without obstruction and without gangrene K42.9 Hypertension, essential I10 Hypothyroidism, unspecified type E03.9 Hypothyroidism type: unspecified Benign prostatic hyperplasia with urinary frequency N40.1; R35.0 Lower urinary tract symptom presence: symptoms present Lower urinary tract symptom detail: urinary frequency Lipid disorder E78.9 Tobacco abuse Z72.0 Chronic GERD K21.9 CLL (chronic lymphocytic leukemia) C91.10 Nicotine dependence, cigarettes, uncomplicated F17.210 Schizo-affective schizophrenia F25.9 Vivid dream R68.89 Additional Codes PHQ-9 - 72588 - PHQ-9 Billing: Yes ([id number]) Assessment & Plan Assessment & Plan (1) Umbilical hernia without obstruction and without gangrene: Code(s): K42.9 - Umbilical hernia without obstruction or gangrene Category: Medical (2) Hypertension, essential: Code(s): I10 - Essential (primary) hypertension Category: Medical (3) Hypothyroidism: Code(s): E03.9 - Hypothyroidism, unspecified Category: Medical Qualifiers: Hypothyroidism type: unspecified Qualified Code(s): E03.9 - Hypothy roidism, unspecified (4) BPH (benign prostatic hyperplasia): Code(s): N40.0 - Benign prostatic hyperplasia without lower urinary tract symptoms Category: Medical Qualifiers: Lower urinary tract symptom presence: symptoms present Lower urinary tract symptom detail: urinary frequency Qualified Code(s): N40.1 - Benign prostatic hyperplasia with lower urinary tract symptoms; R35.0 - Frequency of micturition (5) Lipid disorder: Code(s): E78.9 - Disorder of lipoprotein metabolism, unspecified Category: Medical (6) Tobacco abuse: Code(s): Z72.0 - Tobacco use Category: Medical (7) Chronic GERD: Code(s): K21.9 - Gastro-esophageal reflux disease without esophagitis Category: Medical (8) CLL (chronic lymphocytic leukemia): Code(s): C91.10 - Chronic lymphocytic leukemia of B-cell type not having achieved remission Category: Medical (9) Nicotine dependence, cigarettes, uncomplicated: Comment: (>30pyh) Code(s): F17.210 - Nicotine dependence, cigarettes, uncomplicated Category: Medical (10) Schizo-affective schizophrenia: Code(s): F25.9 - Schizoaffective disorder, unspecified Category: Medical (11) Vivid dream: Code(s): R68.89 - Other general symptoms and signs Category: Medical Plan History - The patient is a 63-year-old male with a history of psychiatric illness, hyp ertension, BPH, rash , hypothyroidism, lipid disorder, hypertension presenting with an umbilical hernia. - Planning to undergo surgical correction and has been experiencing episodic soreness. - The patient is also experiencing vivid dreams and nightmares. - These have an impact on his sleep quality. - Initial bouts began before any recent changes in his psychiatric medication. Problem List - Umbilical Hernia - Vivid Dreams/Nightmares - Tremors (resolved) - Dermatological issue (possible dry skin) has appointment with Dermatology - Presence of a cyst or lymph node right side close to neck nontender - lipid disorder - hypothyroidism - hypertension - psychiatric illness Diagnostic results - Labs performed in August; results reported as normal. [place] of Care - Follow-ups and interactions with urology, dermatology, and psychiatry discussed. - Care nurses involved, previously mentioned in care. Patient Instructions - Await a call to confirm and potentially adjust time for the umbilical hernia surgery appointment. - Continue to monitor for any exacerbations of dermatological symptoms and attend scheduled dermatology appointment. - continue medications Orders: Referrals General Surgery Referral K42.9 - Umbilical hernia without obstruction or gangrene
--- OUTSIDE RECORDS SUMMARY | 2024-11-15 14:41 | XMS_ITS | Patient Health Record ---
Author Organization [facility] Address [address] [place] [address] Care Team Providers Care Parts Clerk Plant Maintenance Name Role Phone Raphael GEE, [employer] Primary Care Provider Jimy Pandya Unavailable [phone] Tata Osorio Unavailable Unavailable ALLERGIES Allergen (clinical drug ingredient) Drug/Non Drug Allergy documented on EMR Reaction Allergy Type Onset Date Status atorvastatin Lipitor Unknown Drug Allergy Acti ve REASON FOR REFERRAL No Information MEDICATIONS Medication SIG (Take, Route, Frequency, Duration) Notes Start Date End Date Status RisperDAL Consta 50 MG 1cc Intramuscular every two weeks Active Zetia 10 MG 1 tablet Orally Once a day Active Paxil 40 MG 1 tablet in the morn ing Orally Once a day Active Tylenol Extra Strength 500 MG 1 tablet as needed Orally every 6 hrs Active Benadryl Allergy 25 MG 1 tablet as neede d Orally prn Active Fluocinolone Oint & Emollient 0.025 % Externally Active Cogentin 1 MG 1 tablet at bedtime Injection Once a day Active FeroSul 325 (65 Fe) MG TAKE 1 TABLET BY MOUTH DAILY Orally Daily for 30 days Active Dutasteride 0.5 MG 1 capsule Orally Onc e a day Active Multi Vitamin/Minerals - 1 Orally QD Active Vitamin D-3 Active Spencer 3 1000 MG 1 capsule Orally Onc e a day Active [place] Carbonate ER 300 MG 3 tablet at bedtime Orally bid Active Flomax 0.4 MG 1 capsule 30 minutes after the same meal each day Orally Once a day Active ReVia 50 MG 1 tablet Orally Once a day Active Flovent HFA 44 MCG/ACT 2 puffs Inhalatio n Twice a day Active Triamcinolone & Emollient 0.1 % 1 application Externally Twice a day Active Super B Complex - 1 Orally qd Active Lidocaine 4 % 1 application as nee ded Externally Twice a day Active Levoxyl 112 MCG 1 tablet on an empty stomach in the morning Orally Once a day Active Prilosec 20 MG as directed Orally o nce a day Active Lopid 600 MG 1 tablet Orally Twic e a day Active IMMUNIZATIONS Vaccine Route Administration Date Status Comme nts Flu vaccine no Preserv 3 and > Unknown 06/27/2017 Admin istered Influenza Unknown 06/18/2020 Administered Influenza Unknown 06/18/2021 Administered SOCIAL HISTORY Tobacco Use: Social History Observation Description Date Details (start date - stop date) Current Smoker NA - NA Sex Assigned At : Social History Observation Description Sex Assigned At Unknown Tobacco Use/Smoking Question Answer Notes Patient is a current smoker How often do you smoke cigarettes? every day How many cigarettes a day do you smoke? 21-30 How soon after you wake up d o you smoke your first cigarette? 31-60 minutes Are you interested in quitting? Thinking about q uitting Alcohol Screen Question Answer Notes Did you have a drink containing alcohol in the p ast year? No Points 0 Interpretation Negative PROBLEMS Problem Type ICD Code Onset Dates Problem Status W/U Status Risk SNOMED Code Notes Problem Gastroesophageal reflux disease without esophagitis (K21.9) Active confirmed 999489253 Problem Iron deficiency anem ia due to chronic blood loss (D50.0) Active confirmed 379382544 Problem Pharyngoesophageal dysphagia (R13.14) Active confirmed 51479467 Problem Iron deficiency anemia, unspecified iron deficiency anemia type (D50.9) Active confirmed 71093883 Problem Anemia, unspecified type (D64.9) Active confirmed 712763436 Problem Gastroesophageal reflux disease with esophagitis without hemorrhage (K21.00) Active confirmed 177164206 PLAN OF TREATMENT Pending Test Test Name Order Date IRON + IBC (FE) 04/09/2021 IRON + IBC (FE) 12/21/2017 FERRITIN 12/21/2017 CBC w DIFF 12/21/2017 CBC w DIFF 04/09/2021 Ferritin 04/09/2021 Future Test Test Name Order Date UPPER GI ENDOSCOPY [place] DILATION OF ESOPH 12/13/2017 COLONOSCOPY 12/13/2017 Insurance Providers Payer Name Payer Address Payer Phone Subscriber Number Group Number Insured Name Patient Relationship to Insured Coverage Start Date Coverage End Date MEDICARE OF [place] [address] [place] [address] [id number] KATHLEEN DESIR Self - patient is the insured MEDICAID OF [employer] [address] [place] [phone] [id number] KATHLEEN DESIR Self - patient is the insured MEDICAL (GENERAL) HISTORY Medical History History ICD Code Denies RI,DM,CVA,renal disease Chronic dysphagia--he had a normal upper GI series in [address] Contreras, EGD as below Asthma Psychiatric issues--includin g insomnia, depression, and possibly bipolar disease Hypothyroidism Hyperlipidemia Iron deficiency anemia--work up as below-sees Dr. Osorio--02/2021 Hgb 12.5, MCV 80, Iron 28, Iron sat 5%, Ferritin 15 EGD 12/2017--mild esophagitis--no celiac disease, no Rogers's Colonoscopy 12/2017--hyperplastic polyp Polycythemia secondary to phuong ng disease-has had phlebotomies, but none since 2019 Surgical History Surgery Date(Month/Year) Foot surgery 05/2017 Left inguinal hernia
== END 2024-11-15 13:49 | disposition home or self-care (01) ==
PROVIDERS: PCP Internal Medicine; Visit Provider Internal Medicine
DX: K42.9 Umbilical hernia without obstruction or gangrene (principal); C91.10 Chronic lymphocytic leukemia of B-cell type not having achieved remission; F25.9 Schizoaffective disorder, unspecified; I10 Essential (primary) hypertension; E03.9 Hypothyroidism, unspecified; N40.1 Benign prostatic hyperplasia with lower urinary tract symptoms; R35.0 Frequency of micturition; E78.9 Disorder of lipoprotein metabolism, unspecified; Z72.0 Tobacco use; K21.9 Gastro-esophageal reflux disease without esophagitis; F17.210 Nicotine dependence, cigarettes, uncomplicated; R68.89 Other general symptoms and signs

== ENCOUNTER → 2024-11-15 12:36 | Outpatient (BNVA) | payer MEDICARE, MEDICAID, SELFPAY | PROVIDERS: PCP Internal Medicine; Visit Provider Internal Medicine | DX: K42.9 Umbilical hernia without obstruction or gangrene (principal); I10 Essential (primary) hypertension; E03.9 Hypothyroidism, unspecified; N40.1 Benign prostatic hyperplasia with lower urinary tract symptoms; R35.0 Frequency of micturition; E78.9 Disorder of lipoprotein metabolism, unspecified; K21.9 Gastro-esophageal reflux disease without esophagitis; C91.10 Chronic lymphocytic leukemia of B-cell type not having achieved remission; F25.9 Schizoaffective disorder, unspecified; R68.89 Other general symptoms and signs; F17.210 Nicotine dependence, cigarettes, uncomplicated; Z71.6 Tobacco abuse counseling | CPT/HCPCS: 96127; 99212 ==

== ENCOUNTER 2024-11-18 10:20 | Outpatient (AMB) | payer MEDICARE, MEDICAID, SELFPAY ==
--- NOTE | 2024-11-18 10:21 | A.OFFVIS_ITS ---
Intake Visit Reasons: 6m/PVR Intake Note: Patient is Present for PVR/BPH Urology Med: Tamsulosin, Dutasteride Antibiotic Allergy: None Blood Thinner: None Todays PVR:186mls Sole Cutter Required: No Drying Machine Receiver: Drying Machine Receiver Present Accompanied by: animated cartoons painter Allergies atorvastatin [From LIPITOR] Allergy (Unknown, Verified 11/18/24 11:09) HIGH LFTS Medication List - Last Reconciled 11/18/24 by SHERIN Reese acetaminophen 650 mg (2 x 325 mg) PO Q6H PRN amantadine HCl 100 mg PO BID amlodipine 5 mg PO BEDTIME cholecalciferol (vitamin D3) 50 mcg PO DAILY 90 days dutasteride 0.5 mg PO DAILY 90 days ezetimibe (Zetia) 10 mg PO DAILY ferrous sulfate 325 mg PO DAILY fluticasone propionate 44 mcg/actuation 2 puffs inhalation BID gemfibrozil (Lopid) 600 mg PO BID 90 days ipratropium-albuterol 0.5 mg-3 mg(2.5 mg base)/3 mL 3 mL inhalation RQ4H WHILE AWAKE PRN levothyroxine 112 mcg PO DAILY@0600 melatonin mg PO naltrexone 50 mg PO DAILY omega 7-ghw-fxf-fish oil 300-1,000 mg 1 cap PO BID 90 days omeprazole 20 mg PO DAILY@0630 paroxetine HCl (Paxil) 20 mg PO DAILY risperidone microspheres ER 50 mg (2 mL) IM Q2W tamsulosin (Flomax) 0.8 mg PO BEDTIME HPI Comments Details: Robb is a 63-year-old male patient of Dr. Lim who was a ccompanied by his CHD worker at today's office visit. He has a past medical history of hypertension, schizoaffective schizophrenia, chronic lymphatic leukemia, basal cell carcinoma excision in 2011 to the right cheek, nicotine dependence, vitamin-D deficiency, alcoholic liver disease, depression, obesity, BPH, COPD, lipid disorder, chronic GERD, and hypothyroidism. He presents to the office today for follow-up of his lower urinary tract symptoms. In discussion with the patient he reports compliance with Flomax and dutasteride as prescribed. He currently denies any bothersome urinary issues or concerns. He denies urinary urgency, urinary frequency, incontinence, nocturia, hematuria, dysuria, foul smelling urine, changes to urinary stream, flank pain, fever, and or chills. He is happy with his current voiding parameters. LAURA performed boggy prostate noted otherwise no masses or nodules palpated. In office urinalysis results reviewed with the patient today. PVR 186 mL. In review of patient's chart it appears PSAs are as follows: PSA 19 .4, 12/08 0.3 He otherwise offers no other issues or concerns at this time. PREVIOUS OFFICE NOTE: Accompanied by a quarry supervisor dimension stone Last PVR 600 cc, Current PVR 200 Continue with Flomax 0.8 mg and dutasteride Six-month follow-up PVR nurse-practitioner Lower urinary tract symptoms Background of psychiatric medications with risperidone, lithium Has been Flomax 0.4 mg and dutasteride Increase Flomax to 0.8 PSA 12/08 0.3 PFSH Medical History Hypertension, essential Schizo-affective schizophrenia CLL (chronic lymphocytic leukemia) History of basal cell carcinoma (BCC) Nicotine dependence, cigarettes, uncomplicated Hypercalcemia due to lithium Non-toxic multinodular goiter Vitamin D deficiency 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 Alcoholic liver disease Depression, major, recurrent Thrombocytosis Obesity BPH (benign prostatic hyperplasia) COPD (chronic obstructive pulmonary disease) Lipid disorder Chronic GERD Hypothyroidism Surgical History History of esophagogastroduodenoscopy (EGD) History of colonoscopy History of basal cell carcinoma (BCC) excision History of surgery History of hernia repair Family History Father HTN (hypertension) CVD (cardiovascular disease) Sister AIDS Maternal Grandfather Unknown family medical history Maternal Grandmother Unknown family medical history Paternal Grandfather Unknown family medical history Paternal Grandmother Unknown family medical history Sister No problems noted. Sister No problems noted. Sister No problems noted. Social History Household Members: None Housing: Unknown / Unable to assess Are you a primary lawn caretaker to a significant other at home: No Do you presently have visiting nurse or other home services: Yes Alcohol intake: former Comment: restraints Patient Tobacco Use Status: Current everyday Tobacco user Tobacco use type: Cigar Cigarette Packs Per Day: 1 e-Cigarette/Vaping Use: Never Used Substance Use Type: Marijuana Advance Directives Date on File: 08/16/22 service: No Current occupational status: disabled Cognitive needs: No Hearing needs: No Vision needs: Yes Review of Systems Const All systems reviewed & are unremarkable except as noted in HPI and below Physical Exam Const General: cooperative, comfortable, no acute distress, well developed, alert and awake Orientation/consciousness: patient oriented x3 Limitations: ambulation with walker HEENT Head: Yes normal to inspection, Yes normocephalic and Yes atraumatic Ears: hearing grossly normal bilaterally Eyes General: appearance normal, both eyes and all related structures Neck Neck: Yes normal visual inspection and Yes trachea midline Chest Chest palpation & inspection: normal inspection of the chest Resp Effort & Inspection: normal respiratory effort and able to speak in complete sentences Cardio Rate: regular rate GI Inspection: Yes normal to inspection General: Yes no CVA tenderness Back/Spine/Pelvis Back: no CVA tenderness Skin General skin exam: no rashes or lesions noted Neuro General: patient oriented x3 Extrem General: Yes normal to inspection Psych Appearance: grossly normal and well kempt Mental Status: mental status grossly normal Speech and movement: Normal speech and movement present and Clear speech present Affect: normal affect Attitude: cooperative Thought process: Normal thought process present Thought content: Normal thought content present Insight: Limited insight present (Psych) and Poor insight present (Psych) Judgement: Limited judgement present (Psych) and Poor judgement present (Psych) Office Procedures Post Void Residual Post Residual Void Post Void Residual (PVR): 186 [id number] Void Residual by ultrasound Results AMB Urinalysis, Automated UA Leukoctes 0 Donell/uL Last Edit by Julieta Mahajan on 11/18/24 11:03 UA Nitrite Negative Last Edit by Julieta Mahajan on 11/18/24 11:03 UA Urobilinogen 0.2 mg/dL Last Edit by Julieta Mahajan on 11/18/24 11:03 UA Protein 30 mg/dL Last Edit by Julieta Mahajan on 11/18/24 11:03 UA pH 6.0 Last Edit by Julieta Mahajan on 11/18/24 11:03 UA Blood 0 Jack/uL Last Edit by Julieta Mahajan on 11/18/24 11:03 UA Specific [place] 1.005 Last Edit by Julieta Mahajan on 11/18/24 11:03 UA Ketone Negative Last Edit by Julieta Mahajan on 11/18/24 11:03 UA Bilirubin 0 mg/dL Last Edit by Julieta Mahajan on 11/18/24 11:03 UA Glucose 0 mg/dL Last Edit by Julieta Mahajan on 11/18/24 11:03 Results Reviewed Results Reviewed: Laboratory Last Values Urine pH (Auto) 6.0 11/18/24 10:57 Specific [place] (Auto) 1.005 11/18/24 10:57 Urine Protein (Auto) 30 mg/dL 11/18/24 10:57 Glucose (UA)(Auto) 0 mg/dL 11/18/24 10:57 Urine Ketones (Auto) Negative 11/18/24 10:57 Urine Blood (Auto) 0 Jack/uL 11/18/24 10:57 Urine Nitrite (Auto) Negative 11/18/24 10:57 Urine Bilirubin (Auto) 0 mg/dL 11/18/24 10:57 Urine Urobilinogen (Auto) 0.2 mg/dL 11/18/24 10:57 Leukocyte Esterase (Auto) 0 Donell/uL 11/18/24 10:57 Assessment & Plan Assessment & Plan (1) Weak urinary stream: Code(s): R39.12 - Poor urinary stream Category: Medical (2) BPH (benign prostatic hyperplasia): Code(s): N40.0 - Benign prostatic hyperplasia without lower urinary tract symptoms Category: Medical Qualifiers: Lower urinary tract symptom presence: symptoms present Lower urinary tract symptom detail: urinary frequency Qualified Code(s): N40.1 - Benign prostatic hyperplasia with lower urinary tract symptoms; R35.0 - Frequency of micturition (3) Incomplete emptying of bladder due to benign prostatic hyperplasia: Code(s): N40.1 - Benign prostatic hyperplasia with lower urinary tract symptoms; R33.9 - Retention of urine, unspecified Category: Medical Plan In office urinalysis results reviewed with the patient today; as noted above. LAURA performed. PVR 186 mL. Continue dutasteride and Flomax as prescribed. Patient currently denies any bothersome urinary issues or concerns. He reports be happy with current voiding parameters. Will obtain PSA. We discussed importance of double voiding to assist with incomplete bladder emptying. Follow-up in 6 months with PSA and PVR; or sooner with any issues, concerns, and or questions. Orders: Orders Prostate Specific Antigen Today N40.1 - Benign prostatic hyperplasia with lower urinary tract symptoms, R33.9 - Retention of urine, unspecified AMB Urinalysis Automated Today Z13.9 - Encounter for screening, unspecified AMB Post Void Residual by ultrasound Today N39.41 - Urge incontinence Medications: Changed From tamsulosin (Flomax) 0.8 mg PO BEDTIME To tamsulosin (Flomax) 0.8 mg (2 x 0.4 mg) PO BEDTIME 90 days 180 caps 3RF Refilled dutasteride 0.5 mg PO DAILY 90 days 90 caps 1RF Patient Instructions: The patient had an opportunity to ask questions regarding the treatment plan. A ll questions were answered. Physical exam, labs, and imaging were discussed and reviewed in detail. As well as risks, benefits, and discussion of treatment choices. No major barriers to understanding were identified. The patient expressed understanding and agreement with the above treatment plan. The patient was made aware they should contact our office by phone for worsening of their current condition, the appearance of new symptoms, or with any questions or concerns. Compliance is encouraged with any medications and follow up testing that is ordered. It is a privilege to be allowed the opportunity to participate in? your urological care.? Again, if you have any questions or concerns If you have any questions or concerns please do not hesitate to contact me. The office is [phone]. This note is constructed using voice recognition software. While every effort has been made to ensure accuracy manager studio errors may have been included. Yours sincerely, SHERIN Reese Coding Level of Care Code Est Pt Level 3 (12099) Complex EM visit Add On G2211 Diagnoses Weak urinary stream R39.12 Benign prostatic hyperplasia with urinary frequency N40.1; R35.0 Lower urinary tract symptom presence: symptoms present Lower urinary tract symptom detail: urinary frequency Incomplete emptying of bladder due to benign prostatic hyperplasia N40.1; R33.9 CPT Codes Post Residual Void - PVR CPT Code: 75591-Wrff Void Residual by ultrasound ([id number])
--- OUTSIDE RECORDS SUMMARY | 2024-11-18 11:56 | XMS_ITS | Patient Health Record ---
Author Organization [facility] Address [address] [place] [address] Care Team Providers Care Streetcar Motorman Name Role Phone Raphael GEE, [facility] Primary Care Provider Jimy Pandya Unavailable [phone] Tata Osorio Unavailable Unavailable ALLERGIES Allergen (clinical [...] 1 Orally QD Active Vitamin D-3 Active [place] 3 1000 MG 1 capsule Orally Onc e a day Active [place] Carbonate ER 300 MG 3 tablet at [...] reflux disease without esophagitis (K21.9) Active confirmed 221863297 Problem Iron deficiency anem ia due to chronic blood loss (D50.0) Active confirmed 027697430 Problem Pharyngoesophageal dysphagia (R13.14) Active confirmed 89110643 Problem Iron deficiency anemia, unspecified iron deficiency anemia type (D50.9) Active confirmed 95909632 Problem Anemia, unspecified type (D64.9) Active confirmed 852817420 Problem Gastroesophageal reflux disease with esophagitis without hemorrhage (K21.00) Active confirmed 745109880 PLAN OF TREATMENT Pending Test Test Name [...] OF [place] [address] [place] [address] [id number] KATHLEEN DESIR Self - patient is the insured MEDICAID OF [place] [address] [place] [id number] KATHLEEN DESIR Self - patient is the insured MEDICAL (GENERAL) HISTORY Medical History History ICD Code Denies [place],DM,CVA,renal disease Chronic dysphagia--he had a normal upper [...]
== END 2024-11-18 11:12 | disposition home or self-care (01) ==
PROVIDERS: PCP Internal Medicine; Visit Provider Nurse Practitioner Family
DX: N40.1 Benign prostatic hyperplasia with lower urinary tract symptoms (principal); R39.12 Poor urinary stream; R35.0 Frequency of micturition; R33.9 Retention of urine, unspecified; Z13.9 Encounter for screening, unspecified
CPT/HCPCS: 99213; G2211

== ENCOUNTER → 2024-11-18 10:20 | Outpatient (BNVA) | payer MEDICARE, MEDICAID, SELFPAY | PROVIDERS: PCP Internal Medicine; Visit Provider Nurse Practitioner Family | DX: N40.1 Benign prostatic hyperplasia with lower urinary tract symptoms (principal); R39.12 Poor urinary stream; R35.0 Frequency of micturition; R33.9 Retention of urine, unspecified | CPT/HCPCS: 51798; 81003; 99212 ==

== ENCOUNTER 2024-12-02 11:29 | Outpatient (REF) | payer MEDICARE, MEDICAID, SELFPAY ==
--- OUTSIDE RECORDS SUMMARY | 2024-12-02 13:40 | XMS_ITS | Patient Health Record ---
Author Organization [facility] Address [address] [place] [address] Care Team Providers Care Bottomer Operator Name Role Phone Raphael GEE, [facility] Primary Care Provider Jimy Pandya Unavailable [phone] Tata Osorio Unavailable Unavailable Allergies Allergen (clinical drug ingredient) Drug/Non Drug Allergy documented on EMR Reaction Allergy Type Onset Date Status atorvastatin Lipitor Unknown Drug Allergy Acti ve Reason For Referral No Information Medications Medication SIG (Take, Route, Frequency, Duration) Notes [...] 1 Orally QD Active Vitamin D-3 Active [place] 3 1000 MG 1 capsule Orally Onc e a day Active [place] Carbonate ER 300 MG 3 tablet at [...] tablet Orally Twic e a day Active Immunizations Vaccine Route Administration Date Status Comme nts Flu vaccine no Preserv 3 and > Unknown 06/27/2017 Admin istered Influenza Unknown 06/18/2020 Administered Influenza Unknown 06/18/2021 Administered Social History Tobacco Use: Social History Observation Description Date Details (start date - stop date) Current Smoker NA - NA Tobacco Use/Smoking Question Answer Notes Patient is [...] ast year? No Points 0 Interpretation Negative Section Notes: Smoker; reports no EtOH x 2 years---reports some heavy EtOH in the past Smoker; reports no EtOH x 2 years---reports some heavy EtOH in the past Smoker; reports no EtOH x 2 years---reports some heavy EtOH in the past Smoker; reports no EtOH x 2 years---reports some heavy EtOH in the past Problems Problem Type SNOMED Code ICD Code Onset Dates Problem Status W/U Status Risk Notes Problem 098369384 Gastroesophageal reflux disease without esophagitis (K21.9) Active confirmed Problem 901955948 Iron deficiency anemia due to chronic blood loss (D50.0) Active confirmed Problem 80283116 Pharyngoesophage al dysphagia (R13.14) Active confirmed Problem 36396282 Iron deficiency anemia, unspecified iron deficiency anemia type (D50.9) Active confirmed Problem 090529794 Anemia, unspecif ied type (D64.9) Active confirmed Problem 195098570 Gastroesophageal reflux disease with esophagitis without hemorrhage (K21.00) Active confirmed Plan Of Treatment Pending Test Test Name Order Date IRON [...] OF [place] [address] [place] [address] [id number] KATHLEEN DESIR Self - patient is the insured MEDICAID OF [facility] [address] [place] [address] [id number] KATHLEEN DESIR Self - patient is the insured Medical (General) History Medical History History ICD Code Denies [place],DM,CVA,renal disease Chronic dysphagia--he had a normal upper [...]
== END 2024-12-02 11:30 | disposition home or self-care (01) ==
LOC: HO.BBR 11:29
PROVIDERS: PCP Internal Medicine; Visit Provider Internal Medicine Medical Oncology
DX: D75.1 Secondary polycythemia (principal)
CPT/HCPCS: 85014; 85018; 99195

== ENCOUNTER 2024-12-04 14:59 | Outpatient (AMB) | payer MEDICARE, MEDICAID, SELFPAY ==
--- NOTE | 2024-12-04 15:01 | A.OFFVIS_ITS ---
Vital Signs 12/04/24 15:08 Height 5 ft 10 in Weight 228 lb 8 oz BMI 32.8 Intake Visit Reasons: Umbilical hernia Intake Note: This patient presents for umbilical hernia. Pt c/o; no complaints. Automatic Centrifugal Station Operator Required: No Accompanied by: receiving and processing supervisor Allergies atorvastatin [From LIPITOR] Allergy (Unknown, Verified 12/04/24 15:16) HIGH LFTS Medication List - Last Reconciled 12/04/24 by Jeff Harrell MD acetaminophen 650 mg (2 x 325 mg) PO Q6H PRN amantadine HCl 100 mg PO BID amlodipine 5 mg PO BEDTIME cholecalciferol (vitamin D3) 50 mcg PO DAILY 90 days dutasteride 0.5 mg PO DAILY 90 days ezetimibe (Zetia) 10 mg PO DAILY ferrous sulfate 325 mg PO DAILY fluticasone propionate 44 mcg/actuation 2 puffs inhalation BID gabapentin 600 mg PO TID gemfibrozil (Lopid) 600 mg PO BID 90 days ipratropium-albuterol 0.5 mg-3 mg(2.5 mg base)/3 mL 3 mL inhalation RQ4H WHILE AWAKE PRN levothyroxine 112 mcg PO DAILY@0600 melatonin 5 mg PO BEDTIME PRN melatonin 5 mg PO DAILY naltrexone 50 mg PO DAILY omega 5-qni-bye-fish oil 300-1,000 mg 1 cap PO BID 90 days omeprazole 20 mg PO DAILY@0630 paroxetine HCl (Paxil) 20 mg PO DAILY quetiapine (Seroquel) 50 mg PO BEDTIME risperidone microspheres ER 50 mg (2 mL) IM Q2W tamsulosin (Flomax) 0.8 mg (2 x 0.4 mg) PO BEDTIME 90 days HPI HPI Umbilical hernia: Details: 63-year-old male with multiple medical problems including schizoaffective disorder, history of chronic lymphocytic leukemia, learning disability with mental retardation, osteoarthritis, chronic back pain, BPH, COPD, here because of an umbilical hernia. He said he has had this reducible mass on his umbilicus for more than 20 years. This has been increasing in size. He describes tenderness when he touches this He lives alone but does have CHD supervise him. He has a DIRECTOR DANCE during the day as well. He was admitted to the hospital last June 2024 because of lithium toxicity with altered mental status. He was in the ICU for about 3 days around that time. 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 Alcoholic liver disease Depression, major, recurrent Thrombocytosis Obesity BPH (benign prostatic hyperplasia) COPD (chronic obstructive pulmonary disease) Lipid disorder Chronic GERD Hypothyroidism Surgical History History of esophagogastroduodenoscopy (EGD) History of colonoscopy History of basal cell carcinoma (BCC) excision History of surgery History of hernia repair Family History Father HTN (hypertension) CVD (cardiovascular disease) Sister AIDS Maternal Grandfather Unknown family medical history Maternal Grandmother Unknown family medical history Paternal Grandfather Unknown family medical history Paternal Grandmother Unknown family medical history Sister No problems noted. Sister No problems noted. Sister No problems noted. Social History Household Members: None Housing: Unknown / Unable to assess Are you a primary direct care staffer to a significant other at home: No Do you presently have visiting nurse or other home services: Yes Alcohol intake: former Comment: restraints Patient Tobacco Use Status: Current everyday Tobacco user Tobacco use type: Cigar Cigarette Packs Per Day: 1 e-Cigarette/Vaping Use: Never Used Substance Use Type: Marijuana Advance Directives Date on File: 08/16/22 service: No Current occupational status: disabled Cognitive needs: No Hearing needs: No Vision needs: Yes Review of Systems Const Denies chills and Denies fever(s) Card Denies chest pain, Denies dyspnea and Denies dyspnea on exertion Resp Denies cough, Denies dyspnea and Denies dyspnea on exertion GI Denies hematochezia and Denies change in bowel habits Denies hematuria and Denies difficulty urinating Musc Reports abnormal gait, Reports back pain, Reports arthralgias and Denies limited range of motion Neuro Reports abnormal gait, Denies focal weakness and Denies convulsions Psych Details: Has schizoaffective disorder Denies depression and Denies mood swings Physical Exam Vital Signs: BMI result Body Mass Index 32.8 Const Other: Uses a walker General: comfortable and no acute distress Nutritional Appearance: obese Orientation/consciousness: patient oriented x3 Neck Neck: Yes no lymphadenopathy Resp Auscultation: clear to auscultation bilaterally Cardio Rhythm: regular rhythm GI Other: Reducible umbilical hernia, about 3 cm in diameter, with some tenderness Palpation (GI): Soft to palpation, nontender and no guarding Neuro General: patient oriented x3 Assessment & Plan Assessment & Plan (1) Umbilical hernia: Code(s): K42.9 - Umbilical hernia without obstruction or gangrene Category: Medical Plan: He has a reducible umbilical hernia as described above. He wants to proceed with repair. I had a long discussion with him about the technique of repair with possible mesh. I explained the risks including but not limited to bleeding, infections, bowel injury, recurrence, as well as the benefits and alternatives. He understands and wants to proceed. He appears competent to provide consent.. His CHD supervisor of instruction Silvia was with him during the visit. Coding Level of Care Code New Pt Level 3 (36341) Diagnoses Umbilical hernia K42.9
[2024-12-04 15:08] VITALS: BMI 32.8
== END 2024-12-04 15:53 | disposition home or self-care (01) ==
PROVIDERS: PCP Internal Medicine; Referring Provider Internal Medicine; Visit Provider Surgery
DX: K42.9 Umbilical hernia without obstruction or gangrene (principal)
CPT/HCPCS: 99203

== ENCOUNTER → 2024-12-04 14:59 | Outpatient (BNVA) | payer MEDICARE, MEDICAID, SELFPAY | PROVIDERS: PCP Internal Medicine; Referring Provider Internal Medicine; Visit Provider Surgery | DX: K42.9 Umbilical hernia without obstruction or gangrene (principal) | CPT/HCPCS: 99202 ==

== ENCOUNTER 2024-12-20 12:30 | Outpatient (AMB) | payer MEDICARE, MEDICAID, SELFPAY ==
[2024-12-20 12:33] VITALS: BP 120/70; PULSE 77; O2SAT 94; BMI 31.6
--- NOTE | 2024-12-20 12:33 | A.OFFPC_ITS ---
Vital Signs 3 12/20/24 12:33 Height 5 ft 10 in Weight 220 lb 8 oz BMI 31.6 BP 120/70 Blood Pressure Location Rt brachial Position Sitting Pulse 77 Pulse Source Pulse Oximeter Pulse Oximetry (%) 94 Oxygen Delivery Method Room Air Intake Visit Reasons: Cataract surgery LT eye Allergies atorvastatin [From LIPITOR] Allergy (Unknown, Verified 12/20/24 12:33) HIGH LFTS Medication List - Last Reconciled 12/20/24 by Binh Lim MD acetaminophen 650 mg (2 x 325 mg) PO Q6H PRN amantadine HCl 100 mg PO BID amlodipine 5 mg PO BEDTIME cholecalciferol (vitamin D3) 50 mcg PO DAILY 90 days dutasteride 0.5 mg PO DAILY 90 days ezetimibe (Zetia) 10 mg PO DAILY ferrous sulfate 325 mg PO DAILY fluticasone propionate 44 mcg/actuation 2 puffs inhalation BID gabapentin 600 mg PO TID gemfibrozil (Lopid) 600 mg PO BID 90 days ipratropium-albuterol 0.5 mg-3 mg(2.5 mg base)/3 mL 3 mL inhalation RQ4H WHILE AWAKE PRN levothyroxine 112 mcg PO DAILY@0600 melatonin 5 mg PO BEDTIME PRN melatonin 5 mg PO DAILY naltrexone 50 mg PO DAILY omega 6-wpr-zjd-fish oil 300-1,000 mg 1 cap PO BID 90 days omeprazole 20 mg PO DAILY@0630 paroxetine HCl (Paxil) 20 mg PO DAILY quetiapine (Seroquel) 50 mg PO BEDTIME risperidone microspheres ER 50 mg (2 mL) IM Q2W tamsulosin (Flomax) 0.8 mg (2 x 0.4 mg) PO BEDTIME 90 days Tobacco use date assessed: 12/20/24 Fall risk assessment: No Falls in past year Last assessed Fall Risk: 12/20/24 Dental Screening Dental Screen Date: 12/20/24 Did you have a dental visit in the last 12 months?: Yes Did you have a dental problem in the last 6 months where you did not have access to dental care?: No Was dental information given to patient?: Patient has dentist HPI Cataract surgery LT eye 2 HPI0 Details Cataract surgery clear this visit Date [facility] with [facility] by Dr. Salvatore Francis MD. Medication list reviewed Patient is doing well offer no complaints Taking no blood thinners Blood test done 12/02/2024 Shows normal hemoglobin and hematocrit Electrolytes within normal limit BUN creatinine within normal limit GFR more than 60 Sugar 85 Liver enzymes within normal limit Surgical risk low EKG done today shows normal sinus rhythm 72 beats per minute no acute findings Image included with this note Patient is stable for cataract surgery - In June of the previous year, the p atient dealt with lithium toxicity leading to acute kidney injury and atrial fibrillation, but rhythm has normalized. Medications - Amlodipine 5 mg for essential hyperten jean - Gabapentin (use not specified) - Ciprofloxacin/Dexamethasone Otic (Ceti a) IUD (specifics not provided) - Levothyroxine for hypothyroidism - Omeprazole (use not specified) - Gabapentin (use not specified) - Psychiatric medication (not specified) - Flomax (use not specified) - Omeprazole (use not specified) Problem List - Cataract Medical Decision Making The evaluation for cataract surgery revealed lab results supportive of surgical candidacy. The patient's history of lithium toxicity leading to atrial fibrillation and acute kidney injury has resolved, allowing for elective surgery consideration. The patient's chronic management with medications such as amlodipine and levothyroxine are effective, denoting controlled blood pressure and thyroid function. My decision to proceed with the surgical evaluation is based on stable laboratory assessments and resolved acute medical issues, minimizing procedural risks. Continued monitoring for any return of cardiac arrhythmias remains critical, given the patient's history. 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 Alcoholic liver disease Depression, major, recurrent Thrombocytosis Obesity BPH (benign prostatic hyperplasia) COPD (chronic obstructive pulmonary disease) Lipid disorder Chronic GERD Hypothyroidism Surgical History History of esophagogastroduodenoscopy (EGD) History of colonoscopy History of basal cell carcinoma (BCC) excision History of surgery History of hernia repair Family History Father HTN (hypertension) CVD (cardiovascular disease) Sister AIDS Maternal Grandfather Unknown family medical history Maternal Grandmother Unknown family medical history Paternal Grandfather Unknown family medical history Paternal Grandmother Unknown family medical history Sister No problems noted. Sister No problems noted. Sister No problems noted. Social History Household Members: None Housing: Unknown / Unable to assess Are you a primary child day care teacher to a significant other at home: No Do you presently have visiting nurse or other home services: Yes Alcohol intake: former Comment: restraints Patient Tobacco Use Status: Current everyday Tobacco user Tobacco use type: Cigar Cigarette Packs Per Day: 1 e-Cigarette/Vaping Use: Never Used Substance Use Type: Marijuana Advance Directives Date on File: 08/16/22 service: No Current occupational status: disabled Cognitive needs: No Hearing needs: No Vision needs: Yes Questionnaire Thrive Questionnaire Date Thrive assessed: 10/02/24 I am a: Parent/Caregiver What is your living situation today?: I choose not to answer this question Within the past 12 months, did the food you bought not last and you didn't have the money to get more?: I choose not to answer this question Within the past 12 months, did you worry whether your food would run out before you got money to buy more?: I choose not to answer this question Do you have trouble paying for medicines?: I choose not to answer this question Do you have trouble getting transportation to medical appointments?: I choose not to answer this question Do you have trouble paying your heating and electricity bill?: I choose not to answer this question Do you have trouble taking care of your child, family member or friend?: I choose not to answer this question Do you have trouble with day-to-day activities such as bathing, preparing meals, shopping, managing finances, etc.?: I choose not to answer this question Are you currently unemployed and looking for a job?: I choose not to answer this question Are you interested in more education?: I choose not to answer this question Please select the resources that you would like help with: None Currently or been in a relationship where the following occur: I choose not to answer THRIVE Score: 0 PATSY-7 AMB Questionnaire PATSY-7 Date PATSY - 7 assessed: 10/02/24 Source: Developed by Madison Allen B.W. Jamal, Tyler Guy and colleagues, with an educational herb from [employer]. Review of Systems Const Denies chills and Denies fever(s) ENT Denies epistaxis and Denies nasal discharge Card Denies chest pain Resp Denies chest congestion, Denies cough and Denies hemoptysis GI Denies diarrhea and Denies nausea Skin/Breast Denies rash Neuro Reports no additional complaints Psych Reports no additional complaints Endo Reports no additional complaints Physical exam (Primary Care) Vital Signs: Last Vital Signs Pulse 77 12/20/24 12:33 BP 120/70 12/20/24 12:33 Pulse Ox 94 12/20/24 12:33 Oxygen Delivery Method Room Air 12/20/24 12:33 BMI result Body Mass Index 31.6 Tobacco/Smoking Status: Tobacco use Status Tobacco use date assessed 12/20/24 12/20/24 12:36 Patient Tobacco Use Status Current everyday Tobacco 12/20/24 12:36 Tobacco use type Cigar 12/20/24 12:36 e-Cigarette/Vaping Use Never Used 12/20/24 12:36 Thrive Assessment: Date of Thrive Assessment Date Thrive assessed 10/02/24 12/20/24 12:36 Currently or been in a relationship where the following occur: I choose not to answer Const General: cooperative, comfortable and no acute distress Orientation/consciousness: patient oriented x3 HENMT Head: Yes normocephalic Eyes General: appearance normal, both eyes and all related structures Neck Neck: Yes supple Resp Effort & Inspection: normal respiratory effort, no cough and no stridor Cardio Other: Rhythm: regular rhythm Heart sounds: S1 normal heart sound present and S2 normal heart sound present GI Abdomen image: 2 1. Reducible umbilical hernia, surgery scheduled for January 21 [facility] Skin General skin exam: turgor normal Neuro General: patient oriented x3, tone normal and moves all extremities Extrem Right lower extremity: no edema Left lower extremity: no edema Office Procedures EKG [id number], Complete Coding Level of Care Code Est Pt Level 5 (35218) Diagnoses Pre-op evaluation Z01.818 Senile cataract, unspecified age-related cataract type, unspecified laterality H25.9 Age-related cataract type: unspecified Cataract type: age-related Laterality: unspecified laterality Hypertension, essential I10 Schizo-affective schizophrenia F25.9 Nicotine dependence, cigarettes, uncomplicated F17.210 Other emphysema J43.8 COPD type: emphysema Emphysema type: other Lipid disorder E78.9 Chronic GERD K21.9 Hypothyroidism, unspecified type E03.9 Hypothyroidism type: unspecified Umbilical hernia without obstruction and without gangrene K42.9 Obstruction and gangrene presence: without obstruction or gangrene CPT Codes EKG - CPT: 85753-[id number], Complete ([id number]) Time Spent (min) 40 Comment Reviewing chart/labs/EKG/ezap-vr-uipv/coordination of care Assessment & Plan Assessment & Plan (1) Pre-op evaluation: Code(s): Z01.818 - Encounter for other preprocedural examination Category: Medical (2) Cataract: Code(s): H26.9 - Unspecified cataract Category: Medical Qualifiers: Age-related cataract type: unspecified Cataract type: age-related L aterality: unspecified laterality Qualified Code(s): H25.9 - Unspecified age- related cataract (3) Hypertension, essential: Code(s): I10 - Essential (primary) hypertension Category: Medical (4) Schizo-affective schizophrenia: Code(s): F25.9 - Schizoaffective disorder, unspecified Category: Medical (5) Nicotine dependence, cigarettes, uncomplicated: Comment: (>30pyh) Code(s): F17.210 - Nicotine dependence, cigarettes, uncomplicated Category: Medical (6) COPD (chronic obstructive pulmonary disease): Code(s): J44.9 - Chronic obstructive pulmonary disease, unspecified Category: Medical Qualifiers: COPD type: emphysema Emphysema type: other Qualified Code(s): J43.8 - Other emphysema (7) Lipid disorder: Code(s): E78.9 - Disorder of lipoprotein metabolism, unspecified Category: Medical (8) Chronic GERD: Code(s): K21.9 - Gastro-esophageal reflux disease without esophagitis Category: Medical (9) Hypothyroidism: Code(s): E03.9 - Hypothyroidism, unspecified Category: Medical Qualifiers: Hypothyroidism type: unspecified Qualified Code(s): E03.9 - Hypothyroidism, unspecified (10) Umbilical hernia: Code(s): K42.9 - Umbilical hernia without obstruction or gangrene Category: Medical Qualifiers: Obstruction and gangrene presence: without obstruction or gangrene Q ualified Code(s): K42.9 - Umbilical hernia without obstruction or gangrene Plan Cataract surgery clear this visit Date of surgery 12[facility] with monitored anesthesia by Dr. Salvatore Francis MD. Medication list reviewed Patient is doing well offer no complaints Taking no blood thinners Blood test done 12/02/2024 Shows normal hemoglobin and hematocrit Electrolytes within normal limit BUN creatinine within normal limit GFR more than 60 Sugar 85 Liver enzymes within normal limit Surgical risk low EKG done today shows normal sinus rhythm 72 beats per minute no acute findings Image included with this note Patient is stable for cataract surgery - In June of the previous year, the patient dealt with lithium toxicity leading to acute kidney injury and atrial fibrillation, but rhythm has normalized. Medications - Amlodipine 5 mg for essential hypertension - Gabapentin (use not specified) - Ciprofloxacin/Dexamethasone Otic (Cetia) IUD (specifics not provided) - Levothyroxine for hypothyroidism - Omeprazole (use not specified) - Gabapentin (use not specified) - Psychiatric medication (not specified) - Flomax (use not specified) - Omeprazole (use not specified) Problem List - Cataract Medical Decision Making The evaluation for cataract surgery revealed lab results supportive of surgical candidacy. The patient's history of lithium toxicity leading to atrial fibrillation and acute kidney injury has resolved, allowing for elective surgery consideration. The patient's chronic management with medications such as amlodipine and levothyroxine are effective, denoting controlled blood pressure and thyroid function. My decision to proceed with the surgical evaluation is based on stable laboratory assessments and resolved acute medical issues, minimizing procedural risks. Continued monitoring for any return of cardiac arrhythmias remains critical, given the patient's history. Medications: Changed 2 From acetaminophen 650 mg (2 x 325 mg) PO Q6H PRN 30 tabs 0RF Pain, Mild (Pain Scale 1-3), fever or headache To acetaminophen 650 mg (2 x 325 mg) PO ONCE PRN 90 tabs 0RF Pain, Mild (Pain Scale 1-3), fever or headache 90 days
--- OUTSIDE RECORDS SUMMARY | 2024-12-20 14:23 | XMS_ITS | Patient Health Record ---
Author Organization [facility] Address [address] [place] [address] Care Team Providers Care Interventional Technologist Name Role Phone Raphael GEE[facility] Primary [facility] Provider Jimy Pandya Unavailable [phone] Tata Osorio Unavailable Unavailable Allergies Allergen (clinical [...] 1 Orally QD Active Vitamin D-3 Active [place] 3 1000 MG 1 capsule Orally Onc e a day Active [place] Carbonate ER 300 MG 3 tablet at [...] Problem Status W/U Status Risk Notes Problem [id number] Gastroesophageal reflux disease without esophagitis (K21.9) Active confirmed Problem 167624027 Iron deficiency anemia due to chronic blood loss (D50.0) Active confirmed Problem 19070872 Pharyngoesophage al dysphagia (R13.14) Active confirmed Problem 90586726 Iron deficiency anemia, unspecified iron deficiency anemia type (D50.9) Active confirmed Problem 186318072 Anemia, unspecif ied type (D64.9) Active confirmed Problem 527378790 Gastroesophageal reflux disease with esophagitis without hemorrhage [...] OF [place] [address] [place] [address] [id number] KATHLEEN DESIR Self - patient is the insured MEDICAID OF [facility] [employer] Organized Through [facility] [address] [place] [address] [id number] KATHLEEN DESIR Self - patient is the insured Medical (General) History Medical History History ICD Code Denies [place],DM,CVA,renal disease Chronic dysphagia--he had a normal upper [...]
== END 2024-12-20 13:00 | disposition home or self-care (01) ==
LOC: HO.HMCC 12:30
PROVIDERS: PCP Internal Medicine; Visit Provider Internal Medicine
DX: Z01.818 Encounter for other preprocedural examination (principal); H25.9 Unspecified age-related cataract; I10 Essential (primary) hypertension; F25.9 Schizoaffective disorder, unspecified; F17.210 Nicotine dependence, cigarettes, uncomplicated; J43.8 Other emphysema; E78.9 Disorder of lipoprotein metabolism, unspecified; K21.9 Gastro-esophageal reflux disease without esophagitis; E03.9 Hypothyroidism, unspecified; K42.9 Umbilical hernia without obstruction or gangrene

== ENCOUNTER → 2024-12-20 12:30 | Outpatient (BNVA) | payer MEDICARE, MEDICAID, SELFPAY | PROVIDERS: PCP Internal Medicine; Visit Provider Internal Medicine | DX: Z01.818 Encounter for other preprocedural examination (principal); H25.9 Unspecified age-related cataract; I10 Essential (primary) hypertension; F25.9 Schizoaffective disorder, unspecified; F17.210 Nicotine dependence, cigarettes, uncomplicated; J43.8 Other emphysema; E78.9 Disorder of lipoprotein metabolism, unspecified; K21.9 Gastro-esophageal reflux disease without esophagitis; E03.9 Hypothyroidism, unspecified; K42.9 Umbilical hernia without obstruction or gangrene | CPT/HCPCS: 93005; 99212 ==

== ENCOUNTER → 2024-12-20 23:59 | Outpatient (BNV) | payer MEDICARE, MEDICAID, SELFPAY | PROVIDERS: PCP Internal Medicine; Visit Provider Internal Medicine | DX: F25.9 Schizoaffective disorder, unspecified (principal); N40.1 Benign prostatic hyperplasia with lower urinary tract symptoms; R20.8 Other disturbances of skin sensation | CPT/HCPCS: G0179 ==

== ENCOUNTER → 2025-01-21 11:41 | Outpatient (BNV) | payer MEDICARE, MEDICAID, SELFPAY | PROVIDERS: PCP Internal Medicine; Visit Provider Physician Assistant | DX: J96.01 Acute respiratory failure with hypoxia (principal); R11.0 Nausea; F25.9 Schizoaffective disorder, unspecified; J69.0 Pneumonitis due to inhalation of food and vomit | CPT/HCPCS: 99223; 99232 ==

== ENCOUNTER → 2025-01-21 16:50 | Outpatient (BNV) | payer MEDICARE, MEDICAID, SELFPAY | PROVIDERS: PCP Internal Medicine; Visit Provider Radiology Diagnostic Radiology | DX: J98.11 Atelectasis (principal) | CPT/HCPCS: 71045 ==

== ENCOUNTER 2025-01-22 09:41 | Outpatient (BNV) | payer MEDICARE, MEDICAID, SELFPAY | END 2025-01-23 17:29 | PROVIDERS: Admitting Provider Surgery; PCP Internal Medicine; Visit Provider Internal Medicine | DX: R00.1 Bradycardia, unspecified (principal) | CPT/HCPCS: 93010 ==

== ENCOUNTER 2025-01-22 09:41 | Inpatient (IN) | payer MEDICARE, MEDICAID, SELFPAY ==
[2025-01-07 10:19] VITALS: BP 152/67; PULSE 68; RESP 18; O2SAT 94; BMI 32.7
--- NOTE | 2025-01-07 10:44 | P.CONAN_ITS ---
Documented by User: Deanne Quiroga NP 01/07/25 11:06 HPI - Anesthesia Eval Consult details Narrative: 64yo M for Repair Hernia Umbilical Reducible with mesh Per PCP clearance, 06/2024 lithium toxicity with acute kidney injury and atrial fibrillation, but rhythm normalized and no anticoag required; intubation required for aspiration pna Daily naltrexone - will hold for 3 days Denies recent illness MSK chest pain, reproducible with palpation. No SOB. Activity very limited. Flat affect d/t psych/meds - difficult to ascertain hx/meds. [place] [facility] [place] - stable, no indication for treatment, 1 year f/u per 11/2024 office visit [facility] Active Problems Active Problems: All Active Problems Cataract (Acute) Pre-op evaluation (Acute) Screening for lung cancer (Acute) Vivid dream (Acute) Hospital discharge follow-up (Acute) Bilateral foot pain (Acute) Photophobia (Acute) Blurred vision, left eye (Acute) Incomplete emptying of bladder due to benign prostatic hyperplasia (Acute) Plantar wart of right foot (Acute) Weak urinary stream (Acute) Learning disability (Acute) Lower back pain (Acute) Full code status (Acute) Umbilical hernia without obstruction and without gangrene (Acute) Skin lesion (Acute) Cutaneous wart (Acute) Memory deficit (Acute) Erythrocytosis (Acute) Osteoarthritis of left knee (Acute) Primary osteoarthritis of left knee (Acute) Pain, joint, knee, left (Acute) Umbilical hernia (Acute) Hypertension, essential (Acute) Schizo-affective schizophrenia (Acute) CLL (chronic lymphocytic leukemia) (Acute) Nicotine dependence, cigarettes, uncomplicated (Acute) Hypercalcemia due to lithium (Acute) Non-toxic multinodular goiter (Acute) Vitamin D deficiency (Acute) Alcoholic liver disease (Acute) Obesity (Acute) BPH (benign prostatic hyperplasia) (Acute) COPD (chronic obstructive pulmonary disease) (Acute) Lipid disorder (Acute) Chronic GERD (Acute) Hypothyroidism (Acute) Past Medical History Medical History Aortic stenosis Hx of transfusion of packed red blood cells Cough Sleep apnea Murmur Umbilical hernia History of basal cell carcinoma (BCC) Nicotine dependence, cigarettes, uncomplicated Schizo-affective schizophrenia CLL (chronic lymphocytic leukemia) Hypertension, essential Hypercalcemia due to lithium Non-toxic multinodular goiter Vitamin D deficiency 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 Sister No problems noted. Sister No problems noted. 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 If so, by whom?: No Are you DNR?: No Advance Directives: Yes Advance Directives Information Provided: No Advance Directives on File: Yes Advance Directives Date on File: 08/16/22 Poor oral hygiene: Yes service: No Current occupational status: disabled Cognitive needs: No Hearing needs: No Vision needs: Yes Meds Allergies Allergy/AdvReac Type Severity Reaction Status Date / Time atorvastatin [From LIPITOR] Allergy Unknown HIGH LFTS Verified 01/21/25 13:28 Home Medications ?Medication ?Instructions ?Recorded ?Confirmed ?Last Taken ?Type amlodipine 5 mg tablet 5 mg PO BEDTIME 06/17/24 01/07/25 01/21/25 History fluticasone propionate 44 2 puff inhalation BID 06/17/24 01/07/25 01/21/25 History mcg/actuation HFA aerosol inhaler naltrexone 50 mg tablet 50 mg PO DAILY 06/17/24 01/07/25 Unknown History omeprazole 20 mg capsule,delayed 20 mg PO DAILY@0630 06/17/24 01/07/25 01/21/25 History release amantadine HCl 100 mg capsule 100 mg PO BID 11/15/24 01/07/25 01/21/25 History melatonin 5 mg capsule 5 mg PO DAILY 11/15/24 01/07/25 Unknown History gabapentin 300 mg tablet 600 mg PO TID 12/02/24 01/07/25 01/21/25 History melatonin 5 mg tablet 5 mg PO BEDTIME PRN Insomnia 12/02/24 01/07/25 Unknown History quetiapine 50 mg tablet (Seroquel) 50 mg PO BEDTIME 12/02/24 01/07/25 Unknown History Exam Height,Weight and Vital Signs: Height 5 ft 10 in Weight 103.419 kg Last Vital Signs Pulse 68 01/07/25 10:19 Resp 18 01/07/25 10:19 BP 152/67 H 01/07/25 10:19 Pulse Ox 94 01/07/25 10:19 O2 Del Method Room Air 01/07/25 10:19 Pertinent Lab Results Pertinent Lab Results: Laboratory Tests 12/02/24 11:10 WBC 14.2 H Hgb 15.6 Hct 48.6 Plt Count 240 Sodium 142 Potassium 4.3 Chloride 109 H Carbon Dioxide 25 BUN 18 H Creatinine 0.89 Narrative Narrative: EKG 12/2024 NSR @ 72 ECHO 06/2024 Conclusions: - Normal left ventricular cavity size. There is mildly increased left ventricular wall thickness. The left ventricular systolic function is hyperdynamic. The visually estimated ejection fraction is >70%. - The basal inferior segment is akinetic. - Normal right ventricular cavity size and systolic function. - There is mild to moderate aortic valve stenosis. Airway Mallampati Class: III TM Dist: >3cm Neck ROM: Limited Loose/Missing/Broken Teeth: Yes (edentulous) Heart: RRR +M Lungs: CTAB Assessment and Plan Assessment Anesthesia Assessment: Anesthesia Plan Discussed, Smoking Cess. Discussed and PAT Visit Final Anesthetic Review Family History of Problems with Anesthesia: No History of Problems with Anesthesia: No Documented by User: Sabrina Flores MD 01/21/25 14:20 [facility] Past Medical History Medical History Aortic stenosis Hx of transfusion of packed red blood cells Cough Sleep apnea Murmur Umbilical hernia History of basal cell carcinoma (BCC) Nicotine dependence, cigarettes, uncomplicated Schizo-affective schizophrenia CLL (chronic lymphocytic leukemia) Hypertension, essential Hypercalcemia due to lithium Non-toxic multinodular goiter Vitamin D deficiency 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 Sister No problems noted. Sister No problems noted. 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 If so, by whom?: No Are you DNR?: No Advance Directives: Yes Advance Directives Information Provided: No Advance Directives on File: Yes Advance Directives Date on File: 08/16/22 Poor oral hygiene: Yes service: No Current occupational status: disabled Cognitive needs: No Hearing needs: No Vision needs: Yes Meds Allergies Allergy/AdvReac Type Severity Reaction Status Date / Time atorvastatin [From LIPITOR] Allergy Unknown HIGH LFTS Verified 01/21/25 13:28 Home Medications ?Medication ?Instructions ?Recorded ?Confirmed ?Last Taken ?Type amlodipine 5 mg tablet 5 mg PO BEDTIME 06/17/24 01/07/25 01/21/25 History fluticasone propionate 44 2 puff inhalation BID 06/17/24 01/07/25 01/21/25 History mcg/actuation HFA aerosol inhaler naltrexone 50 mg tablet 50 mg PO DAILY 06/17/24 01/07/25 Unknown History omeprazole 20 mg capsule,delayed 20 mg PO DAILY@0630 06/17/24 01/07/25 01/21/25 History release amantadine HCl 100 mg capsule 100 mg PO BID 11/15/24 01/07/25 01/21/25 History melatonin 5 mg capsule 5 mg PO DAILY 11/15/24 01/07/25 Unknown History gabapentin 300 mg tablet 600 mg PO TID 12/02/24 01/07/25 01/21/25 History melatonin 5 mg tablet 5 mg PO BEDTIME PRN Insomnia 12/02/24 01/07/25 Unknown History quetiapine 50 mg tablet (Seroquel) 50 mg PO BEDTIME 12/02/24 01/07/25 Unknown History Assessment and Plan Final Anesthetic Review ASA Class: III Final Preanesthetic Review: Meds/Allgs Chart Reviewed, Consent Obtained/Reviewed and Anes Risks/Benef Reviewed Patient Risk: Intermediate Procedure Risk: Low Anesthetic Plan Anesthetic Plan: GA Disposition: Standard PACU
[2025-01-21] VITALS (20 sets, daily range): BP systolic 145–184; BP diastolic 50–76; PULSE 63–94; RESP 15–18; TEMP 36–36.8; O2SAT 89–98; BMI 31.7; BMI 32.6
[2025-01-21] MEDS: Lactated Ringers 1,000 ML 100 ML IVCONT ×2 (12:55→20:19)
[2025-01-21] MEDS: Albuterol Sulfate (0.083%) 2.5 MG/3 ML VIAL.NEB INHALE ×2 (13:23→16:53)
--- NOTE | 2025-01-21 14:31 | MHC.SHP ---
Pre-Procedural Eval Section A - 24 Hr Update-Section A only Date of Service: 01/21/25 The patient is an INPATIENT: No The patient has been examined within 24 hours of the surgical procedure. The History & Physical has been completed within 30 days and I have reviewed it.: No Section B - Complete if H&P > 30 days Chief Complaint: Umbilical hernia without obstruction or gangrene Details of Present Illness: Patient has reducible umbilical hernia, symptomatic Relevant Family History (Specify if Yes): No Relevant Social History: Tobacco Use Present Medications: see Short Stay Collaborative assessment Medical History: Significant History (Schizoaffective disorder, CLL, HTN, COPD) History of Previous Operations: No relevant previous surgery Allergies: Allergies Allergy/AdvReac Type Severity Reaction Status Date / Time atorvastatin [From LIPITOR] Allergy Unknown HIGH LFTS Verified 01/21/25 13:28 Review of Systems Sugical H&P ROS: Negative: Constitution, Cardiovascular and Gastrointestinal Exam Surgical H&P Exam: Normal: Heart, Normal: Lungs and Normal: Extremities and Significant Findings: Abdomen (Reducible umbilical hernia) Plan Diagnosis/Plan: Unchanged I have reviewed the history and physical and performed a pertinent physical examination on my patient. No changes have occurred unless specified. Time Spent With Patient Time: Total time managing care of this patient today ____ minutes.
--- NOTE | 2025-01-21 14:34 | MHC.SHP ---
Pre-Procedural Eval Section A - 24 Hr Update-Section A only Date of Service: 01/21/25 Section B - Complete if H&P > 30 days Chief Complaint: Umbilical hernia without obstruction or gangrene Details of Present Illness: has reducible umbilical hernia Relevant Social History: Alcohol Use Present Medications: see Short Stay Collaborative assessment Medical History: Significant History (smoker, COPD, schizophrenia, arthritis, memory deficit, alcohol abuse, GERD) History of Previous Operations: No relevant previous surgery Allergies: Allergies Allergy/AdvReac Type Severity Reaction Status Date / Time atorvastatin [From LIPITOR] Allergy Unknown HIGH LFTS Verified 01/21/25 13:28 Review of Systems Sugical H&P ROS: Negative: Constitution, Cardiovascular, Respiratory and Gastrointestinal Exam Surgical H&P Exam: Normal: Lungs and Significant Findings: Abdomen (Umbilical hernia, reducible) Plan Diagnosis/Plan: Unchanged I have reviewed the history and physical and performed a pertinent physical examination on my patient. No changes have occurred unless specified. Time Spent With Patient Time: Total time managing care of this patient today ____ minutes.
--- NOTE | 2025-01-21 15:39 | W.PM.OPN ---
Operative Note Operative Note Date of Service: 01/21/25 Narrative: Preop diagnosis: Umbilical hernia, reducible Postop diagnosis: The same Procedure: Repair of umbilical hernia with Phasix umbilical mesh Surgeon: Jeff Harrell MD family readiness support assistant: KSIHA Moya The patient is a 58-year-old male with an umbilical hernia which was reducible. He has a known history of alcohol liver disease, schizophrenia and COPD. He understood the technique of the planned procedure as well as the risks, benefits, and alternatives He was brought to the operating room. He was placed supine under general anesthesia initially via laryngeal mask airway but this was switched to an ET tube by the anesthesiologist The abdomen was prepped and draped in the usual sterile fashion. A surgical time-out was done. The patient received cefazolin 2 g IV preoperatively I infiltrated the planned line of incision with lidocaine 1%. I made a supraumbilical curvilinear transverse incision with a blade 15. This carried down through the full-thickness of the skin and subcutaneous fat with electrocautery. As we dissected, we are able to identify the hernia contents which was fat containing. We dissected the umbilicus as a flap off of the hernia . I continued to dissect the hernia contents down to the fascial defect. This was done with a Metzenbaum scissors as well as electrocautery. This allowed me to reduce the entire hernia contents and define the fascial edge. The hernia contained only fat without any bowel loops. I applied a Rhoda clamp on the fascial edge to lift this. There were no adherent bowel loops surrounding this. Bowel loops were seen underneath which were non adherent so these were protected during the procedure . There was note of steady oozing in the subcutaneous fat as well as the dermal layer during the procedure. There was note of some adherent omental fat in the inferior aspect of the fascial so we carefully dissected this. We encountered oozing and we had to ligate parts of the with Polysorb 3-0 ties to achieve hemostasis I then observed for hemostasis. Once hemostasis was confirmed, I proceeded to then positioned in the Phasix umbilical mesh, small-sized underneath the fascial defect. The fascial defect measured about 2.5 cm. I flattened the mesh under the fascial defect. I secured the Prolene straps of the mesh to the fascial edge on both sides with Prolene 2-0 sutures. I then proceeded to close the fascial layer with a [id number] Maxon 1 stitch . The umbilicus was tacked down to the fascia with a Polysorb 3-0 stitch to re-create the dimple There was a lot of excess skin from the hernia so this was trim. I then proceeded to reappose the subcutaneous layer with Polysorb 3-0 simple interrupted sutures. Skin closure was then achieved with Polysorb 4-0 subcuticular running stitch The area was infiltrated with Marcaine 0.5% for postop analgesia. Dressings were applied. The procedure was completed The patient tolerated the procedure well. There were no immediate complications. Initial and final counts of sponges and instruments were correct. Estimated blood loss was about 30 cc The patient was then extubated without difficulty and transferred to the recovery room with stable vital signs
--- NOTE | 2025-01-21 16:43 | PC.NURSE ---
updated regarding patient status.
--- NOTE | 2025-01-21 16:55 | PC.NURSE ---
abdominal dressing c/d/i. rt at bedside to administer scheduled updraft.
[2025-01-21] MEDS: ondansetron HCL 4 MG/2 ML VIAL IVPUSH ×2 (17:04→20:19)
--- NOTE | 2025-01-21 17:16 | PC.NURSE ---
dr. garcia at bedside to evaluate patient. IS utilized 1800 ml good effort. encouraged deep breaths cough with spo2 improved 93%.
[2025-01-21] MEDS: Acetaminophen 1,000 MG/100 ML PIGGYBACK 400 MG IV (17:44)
--- NOTE | 2025-01-21 18:29 | PC.NURSE ---
dr. wick request update regarding patient status. made aware of vital signs, pmh, cxr results, and respiratory status requires ongoing supplemental 02. no family or support at home for safe discharge. plan to admit overnight
[2025-01-21] MEDS: Albuterol/Iprat 2.5/0.5MG 3 ML AMPUL.NEB INHALE (19:40)
[2025-01-21] MEDS: Ketorolac Tromethamine 30 MG/ML VIAL IVPUSH (20:18)
[2025-01-21] MEDS: Docusate Sodium 100 MG CAPSULE PO (20:19)
--- NOTE | 2025-01-21 20:26 | HO.PM.IMCN ---
History of Present Illness Data of Consult Service Date: 01/21/25 Requesting physician: Essie Winston Primary Care Provider: Binh Lim MD [facility] Reason for consult: oxygen desaturations post op Patient is a 58-year-old male with a past medical history significant for HLD, alcoholic liver disease, schizophrenia, COPD unspecified, history CLL, HTN, history of alcohol use disorder, GERD, memory issues, current smoker, arthritis, BPH and hypothyroid, s/p umbilical hernia today electively with postop desaturations. The patient currently states that he feels nauseous and ?sick ?. He is a poor historian. He denies any chest pain or shortness of breath currently. He is on a oxygen shovel mask maintaining oxygen saturations in the high 90s. He reports that he has been smoking about a pack a day but has not had any alcohol in the past 7 years. He also has COPD which is well-controlled and he does not use any rescue inhalers or oxygen. Review of Systems Constitutional: Constitutional: Denies chills, Denies fatigue, Denies fever(s) and Denies headache(s) Eyes: Eyes: Denies change in vision and Denies photophobia ENT: Denies headache(s), Denies nasal congestion and Denies sore throat Cardiovascular: Cardiovascular: Denies chest pain, Denies rapid heart rate, Denies leg edema, Denies lightheadedness and Denies dyspnea Respiratory: Respiratory: Denies chest congestion, Denies cough, Denies dyspnea and Denies wheezing Gastrointestinal: Gastrointestinal: Denies diarrhea and Reports nausea Genitourinary: Genitourinary: Denies hematuria, Denies dysuria and Denies urinary urgency Musculoskeletal: Musculoskeletal: Denies back pain Integumentary/Breasts: Skin/Breast: Denies rash Neurologic: Denies confusion and Denies headache(s) Psychiatric: Psychiatric: Denies confusion Endocrine: Endocrine: Denies fatigue Hematologic/Lymphatic: Hematologic/Lymphatic: Denies easy bleeding and Denies easy bruising Allergic/Immunologic: Allergic/Immunologic: Denies wheezing [facility] Medical History Aortic stenosis Hx of transfusion of packed red blood cells Cough Sleep apnea Murmur Umbilical hernia History of basal cell carcinoma (BCC) Nicotine dependence, cigarettes, uncomplicated Schizo-affective schizophrenia CLL (chronic lymphocytic leukemia) Hypertension, essential Hypercalcemia due to lithium Non-toxic multinodular goiter Vitamin D deficiency 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 Alcoholic liver disease Depression, major, recurrent Thrombocytosis Obesity BPH (benign prostatic hyperplasia) COPD (chronic obstructive pulmonary disease) Lipid disorder Chronic GERD Hypothyroidism Functional capacity: independent ambulation Family History Father HTN (hypertension) CVD (cardiovascular disease) Sister AIDS Maternal Grandfather Unknown family medical history Maternal Grandmother Unknown family medical history Paternal Grandfather Unknown family medical history Paternal Grandmother Unknown family medical history Sister No problems noted. Sister No problems noted. Sister No problems noted. Surgical History History of left cataract surgery History of esophagogastroduodenoscopy (EGD) History of colonoscopy History of basal cell carcinoma (BCC) excision History of surgery History of hernia repair Social History Household Members: None Housing: Unknown / Unable to assess Are you a primary personal care aid to a significant other at home: No Do you presently have visiting nurse or other home services: Yes (Nurse and MEDICAL SCIENTIST) Alcohol intake: former Comment: restraints Patient Tobacco Use Status: Current everyday Tobacco user Tobacco use type: Cigarette Cigarette Packs Per Day: 1 e-Cigarette/Vaping Use: Never Used Use of substances other than those prescribed or required for medical reasons: Yes Substance Use Type: Marijuana Substance Use Frequency: Occasionally Have you been hit, kicked, punched, or otherwise hurt by someone within the past year? If so, by whom?: No Are you DNR?: No Advance Directives: Yes Advance Directives Information Provided: No Advance Directives on File: Yes Advance Directives Date on File: 08/16/22 Poor oral hygiene: Yes service: No Current occupational status: disabled Cognitive needs: No Hearing needs: No Vision needs: Yes Narrative: Smokes 1 pack per day, no drug use, sober from alcohol x7 years on naltrexone Meds Allergies Allergy/AdvReac Type Severity Reaction Status Date / Time atorvastatin [From LIPITOR] Allergy Unknown HIGH LFTS Verified 01/21/25 13:28 Active Medications: Current Medications Acetaminophen (Acetaminophen 325 Mg Tablet) 650 mg PO Q6H PRN PRN Reason: Pain, Mild 1-3,fever,headache Albuterol Sulfate (Albuterol Sulfate (0.083%) 2.5 Mg/3 Ml Vial.Neb) 2.5 mg INHALE ONCE PRN PRN Reason: Shortness of Breath/Wheezing Last Admin: 01/21/25 16:53 Dose: 2.5 mg Docusate Sodium (Docusate Sodium 100 Mg Capsule) 100 mg PO BID [facility] Last Admin: 01/21/25 20:19 Dose: 100 mg Lactated Ringer's (Lr) 1,000 mls @ 100 mls/hr IVCONT .Q10H [facility] Last Admin: 01/21/25 20:19 Dose: 100 mls/hr Ampicillin Sodium/Sulbactam (Sodium 1.5 gm/ Sodium Chloride) 100 mls @ 200 mls/hr IV Q6H [facility] Ketorolac Tromethamine (Ketorolac Tromethamine 30 Mg/Ml Vial) 30 mg IVPUSH Q6H PRN PRN Reason: Pain, Severe (Pain Scale 7-10) Stop: 01/26/25 18:28 Last Admin: 01/21/25 20:18 Dose: 30 mg Naloxone HCl (Naloxone Hcl 0.4 Mg/Ml Vial) 0.04 mg IVPUSH Q5M PRN PRN Reason: Excessive sedation or RR < 8 Ondansetron HCl (Ondansetron Hcl 4 Mg/2 Ml Vial) 4 mg IVPUSH Q8H PRN PRN Reason: Nausea and Vomiting Oxycodone HCl (Oxycodone Hcl Immed Release 5 Mg Tablet) 5 mg PO Q4H PRN PRN Reason: Pain, Mild (Pain Scale 1-3) Oxycodone HCl (Oxycodone Hcl Immed Release 5 Mg Tablet) 10 mg PO Q4H PRN PRN Reason: Pain, Moderate(Pain Scale 4-6) Sodium Chloride (0.9 % Sodium Chloride Flush 3 Ml Syringe) [facility] Medications ?Medication ?Instructions ?Recorded ?Confirmed ?Last Taken ?Type amlodipine 5 mg tablet 5 mg PO BEDTIME 06/17/24 01/07/25 01/21/25 History fluticasone propionate 44 2 puff inhalation BID 06/17/24 01/07/25 01/21/25 History mcg/actuation HFA aerosol inhaler naltrexone 50 mg tablet 50 mg PO DAILY 06/17/24 01/07/25 Unknown History omeprazole 20 mg capsule,delayed 20 mg PO DAILY@0630 06/17/24 01/07/25 01/21/25 History release amantadine HCl 100 mg capsule 100 mg PO BID 11/15/24 01/07/25 01/21/25 History melatonin 5 mg capsule 5 mg PO DAILY 11/15/24 01/07/25 Unknown History gabapentin 300 mg tablet 600 mg PO TID 12/02/24 01/07/25 01/21/25 History melatonin 5 mg tablet 5 mg PO BEDTIME PRN Insomnia 12/02/24 01/07/25 Unknown History quetiapine 50 mg tablet (Seroquel) 50 mg PO BEDTIME 12/02/24 01/07/25 Unknown History Physical Exam Vital Signs and Narrative: Vital Signs: Last Vital Signs Temp 96.8 F 01/21/25 19:52 Pulse 65 01/21/25 19:52 Resp 18 01/21/25 19:52 BP 174/76 H 01/21/25 19:52 Pulse Ox 98 01/21/25 19:52 O2 Del Method Aerosol Mask 01/21/25 19:52 O2 Flow Rate 3 01/21/25 19:52 BMI result Body Mass Index 31.7 General: AOx3, no acute distress. poor historian, poor memory Resp: CTA bilaterally, no wheezing or crackles CVS: RRR +murmur GI: +BS, NT, no distention Skin: Warm, dry Neuro: Cranial nerves II-XII grossly intact bilaterally. Motor grossly intact bilaterally Extremities: No LE edema, pneumoboots on Psych: Flat affect Const: General: No confusion Orientation/consciousness: No confusion Eyes: Direct Ophthalmoscopy: No photophobia Neuro: General: No confusion Results Labs 01/21/25 20:24 01/21/25 20:24 Assessment and Plan (1) Acute hypoxic respiratory failure: Status: Acute (2) Aspiration pneumonia: Status: Acute (3) S/P hernia repair: Status: Acute Plan Patient is a 58-year-old male with a past medical history significant for HLD, alcoholic liver disease, schizophrenia, COPD unspecified, history CLL, HTN, history of alcohol use disorder, GERD, memory issues, current smoker, arthritis, BPH and hypothyroid, s/p umbilical hernia today electively with postop desaturations. Currently maintaining oxygen saturations in the high 90s with shovel mask. The patient is reporting nausea. Chest x-ray with early aspiration pneumonia left lower lobe. Acute hypoxic respiratory failure secondary to aspiration pneumonia - CBC and CMP pending - chest x-ray with inferior left lung base atelectasis/early consolidation - maintaining oxygen saturations with shovel mask, titrate as needed - no wheezing on exam - start Unasyn Q6H - incentive spirometry - follow CBC and BMP S/p umbilical hernia repair - plan per surgery - pain well controlled at this time COPD unspecified without acute exacerbation - no active wheezing on exam, no acute exacerbation - continue fluticasone b.i.d. HLD - continue is ezetimibe and gemfibrozil Alcoholic liver disease/history alcohol use disorder - sober x7 years per patient - continue naltrexone Schizophrenia - continue risperidone, paroxetine, amantadine, gabapentin and Seroquel HTN - continue amlodipine GERD - continue PPI Tobacco use disorder - alcohol cessation discussed and encouraged - consider nicotine patch after immediate post op healing phase BPH - continue Flomax and dutasteride Hypothyroid - continue levothyroxine Thank you for allowing me to participate in the pt's care. Will continue to follow. Please contact the medical team if any questions or concerns.
[2025-01-21 20:36] LABS: Basophils Percent Auto 0.2 % (0-2); Eosinophils Percent Auto 0.2 % (0-4); Hematocrit 50.9 % (42.0-52.0); Hemoglobin 16.4 g/dl (14.0-18.0); Imm Gran Abs Auto 0.06 X10*3/uL (0.00-0.03); Imm Gran Pct Auto 0.3 % (0.0-0.4); Lymphocytes Percent Auto 43.3 % (20-40); MANUAL DIFF FLAG SCAN; Mean Corpuscular HGB Conc 32.2 g/dl (31.0-36.0); Mean Corpuscular Hemoglobin 27.6 pg (27.0-33.0); Mean Corpuscular Volume 85.7 fL (80.0-98.0); Mean Platelet Volume 9.5 fL (9.4-12.4); Monocytes Absolute Auto 0.8 X10*3/uL (0.1-1.2); Monocytes Percent Auto 4.2 % (2-11); Neutrophils Absolute Auto 9.3 x10*3/uL (2.0-8.3); Neutrophils Percent Auto 51.8 % (45-73); Platelet Count 155 X10*3/uL (160-400); Red Blood Count 5.94 X10*6/uL (4.60-5.80); Red Cell Distribution Width 16.7 % (11.0-16.0); SCAN SMEAR FLAG 1
[2025-01-21 20:37] LABS: Lymphocytes Absolute Auto 7.8 X10*3/uL (1.2-4.9)
[2025-01-21 20:52] LABS: Alanine Aminotransferase 9 U/L (0-40); Albumin Level 4.2 g/dL (3.5-5.0); Alkaline Phosphatase 104 U/L (39-117); Anion Gap 15 (12-20); Aspartate Amino Transferase 22 U/L (5-37); Bilirubin Total 0.4 mg/dL (0.0-1.0); Blood Urea Nitrogen 18 mg/dL (9-16); Calcium 9.6 mg/dL (8.4-10.2); Carbon Dioxide 26 mmol/L (22-29); Chloride 113 mmol/L (96-108); Creatinine Clr Calc Pharmacy 76.9; Estimated Glomerular Filt Rate > 60; Glucose Random 152 mg/dL (60-115); Potassium 4.3 mmol/L (3.3-5.1); Sodium 150 mmol/L (135-145); Total Protein 6.9 g/dL (6.5-8.0)
[2025-01-21] MEDS: Ampicillin Sodium/Sulbactam Na 1.5 GM in 0.9 % Sodium Chloride 100 ML IV (21:12)
[2025-01-21 21:15] LABS: SLIDE REVIEW VERIFIED
[2025-01-22] VITALS (7 sets, daily range): BP systolic 152–172; BP diastolic 67–92; PULSE 57–71; RESP 16–19; TEMP 36.4–37; O2SAT 90–96
--- NOTE | ~2025-01-22 | XR_ITS ---
CLINICAL HISTORY: oxygen requirement post-op 1 view chest x-ray. Comparison: CT 10/28/2024, chest x-ray 06/18/2024 Findings: Left lung base atelectasis and early consolidation partially obscuring the dome of the left diaphragm. No pneumothorax. Right lung is well-aerated. Heart size normal. No acute fracture. Impression: Inferior left lung base atelectasis/early consolidation. This document has been electronically signed by: Joss Nolan MD on 01/21/2025 18:04:31
[2025-01-22] MEDS: Ampicillin Sodium/Sulbactam Na 3 GM in 0.9 % Sodium Chloride 100 ML IV ×4 (02:24→21:13)
[2025-01-22] MEDS: Metoclopramide HCl 10 MG/2 ML VIAL IVPUSH ×3 (02:24→21:12)
[2025-01-22] MEDS: oxyCODONE HCl Immed Release 5 MG TABLET PO ×2 (05:28→21:12)
[2025-01-22 05:47] LABS: Estimated Average Glucose 103 mg/dL; Hemoglobin A1C 137.5272 umol/L; Hemoglobin A1c % 5.2 % (<6.0); Total Hemoglobin (HGBA1C) 4080.8285 umol/L
[2025-01-22 07:41] LABS: Hematocrit 48.5 % (42.0-52.0); Hemoglobin 15.8 g/dl (14.0-18.0); Mean Corpuscular HGB Conc 32.6 g/dl (31.0-36.0); Mean Corpuscular Volume 85.8 fL (80.0-98.0); Mean Platelet Volume 9.3 fL (9.4-12.4); Platelet Count 144 X10*3/uL (160-400); Red Blood Count 5.65 X10*6/uL (4.60-5.80); Red Cell Distribution Width 16.3 % (11.0-16.0); White Blood Count 18.3 X10*3/uL (4.8-10.8)
[2025-01-22 07:53] LABS: Anion Gap 13 (12-20); Blood Urea Nitrogen 16 mg/dL (9-16); Calcium 9.6 mg/dL (8.4-10.2); Carbon Dioxide 27 mmol/L (22-29); Chloride 112 mmol/L (96-108); Creatinine Clr Calc Pharmacy 85.6; Estimated Glomerular Filt Rate > 60; Glucose Random 137 mg/dL (60-115); Potassium 4.4 mmol/L (3.3-5.1); Sodium 148 mmol/L (135-145)
--- NOTE | 2025-01-22 07:55 | P.HPGS_ITS ---
History of Present Illness History of Present Illness Date of Service: 01/24/25 Chief complaint: Umbilical hernia without obstruction or gangrene Narrative: 63-year-old male with multiple medical problems including schizoaffective disorder, history of chronic lymphocytic leukemia, learning disability with mental retardation, osteoarthritis, chronic back pain, BPH, COPD, here because of marginal O2 sats after umbilical hernia repair with mesh yesterday afternoon. He was in the recovery room and was noted to require some O2 supplementation via nasal cannula because of O2 sats that dropped to 88 on room air. He had a chest x-ray done which suggested a pneumonia in the left lower lobe. He lives alone but does have CHD supervise him. 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 He had been admitted last June 2024 because of lithium toxicity with altered mental status. He was in the ICU for about 3 days around that time. Currently he says he is ready to be discharged as he lives alone and has very limited level of activity. He also had urinary retention and has a Martinez catheter now. Review of Systems Constitutional: Constitutional: Denies chills and Denies fever(s) Cardiovascular: Cardiovascular: Denies chest pain and Denies palpitations Respiratory: Respiratory: Reports cough Gastrointestinal: Gastrointestinal: Denies vomiting Genitourinary: Comments: Urinary retention Endocrine: Endocrine: Denies palpitations PMFSH Past Medical History Medical History Aortic stenosis Hx of transfusion of packed red blood cells Cough Sleep apnea Murmur Umbilical hernia History of basal cell carcinoma (BCC) Nicotine dependence, cigarettes, uncomplicated Schizo-affective schizophrenia CLL (chronic lymphocytic leukemia) Hypertension, essential Hypercalcemia due to lithium Non-toxic multinodular goiter Vitamin D deficiency 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 Sister No problems noted. Sister No problems noted. Surgical History Surgical History History of left cataract surgery History of esophagogastroduodenoscopy (EGD) History of colonoscopy History of basal cell carcinoma (BCC) excision History of surgery History of hernia repair Social History Social History Household Members: None Housing: Apartment Are you a primary career guidance counselor to a significant other at home: No Do you presently have visiting nurse or other home services: Yes (CHD program per pt) Alcohol intake: former Comment: restraints Patient Tobacco Use Status: Current everyday Tobacco user Tobacco use type: Cigarette Cigarette Packs Per Day: 1 Cigarettes Per Day: 20.0 e-Cigarette/Vaping Use: Never Used Substance Use Type: Marijuana Advance Directives Date on File: 08/16/22 service: No Current occupational status: disabled Cognitive needs: No Hearing needs: No Vision needs: Yes Meds Allergies Allergy/AdvReac Type Severity Reaction Status Date / Time atorvastatin [From LIPITOR] Allergy Unknown HIGH LFTS Verified 01/21/25 13:28 Active Medications: Current Medications Acetaminophen (Acetaminophen 325 Mg Tablet) 650 mg PO Q6H PRN PRN Reason: Pain, Mild 1-3,fever,headache Albuterol Sulfate (Albuterol Sulfate (0.083%) 2.5 Mg/3 Ml Vial.Neb) 2.5 mg INHALE ONCE PRN PRN Reason: Shortness of Breath/Wheezing Last Admin: 01/21/25 16:53 Dose: 2.5 mg Amantadine HCl (Amantadine Hcl 100 Mg Capsule) 100 mg PO BID [facility] Amlodipine Besylate (Amlodipine Besylate 5 Mg Tablet) 5 mg PO BEDTIME [facility]; Protocol Docusate Sodium (Docusate Sodium 100 Mg Capsule) 100 mg PO BID [facility] Last Admin: 01/21/25 20:19 Dose: 100 mg Ezetimibe (Ezetimibe 10 Mg Tablet) 10 mg PO DAILY [facility] Gemfibrozil (Gemfibrozil 600 Mg Tablet) 600 mg PO BID [facility] Lactated Ringer's (Lr) 1,000 mls @ 100 mls/hr IVCONT .Q10H [facility] Last Infusion: 01/22/25 05:29 Dose: 100 mls/hr Ampicillin Sodium/Sulbactam (Sodium 3 gm/ Sodium Chloride) 100 mls @ 200 mls/hr IV Q6H [facility] Last Infusion: 01/22/25 03:03 Dose: Infused Ketorolac Tromethamine (Ketorolac Tromethamine 30 Mg/Ml Vial) 30 mg IVPUSH Q6H PRN PRN Reason: Pain, Severe (Pain Scale 7-10) Stop: 01/26/25 18:28 Last Admin: 01/21/25 20:18 Dose: 30 mg Levothyroxine Sodium (Levothyroxine Sodium 112 Mcg Tablet) 112 mcg PO DAILY@0600 [facility] Metoclopramide HCl (Metoclopramide Hcl 10 Mg/2 Ml Vial) 10 mg IVPUSH Q6H PRN PRN Reason: Nausea and Vomiting Last Admin: 01/22/25 02:24 Dose: 10 mg Naloxone HCl (Naloxone Hcl 0.4 Mg/Ml Vial) 0.04 mg IVPUSH Q5M PRN PRN Reason: Excessive sedation or RR < 8 Naltrexone HCl (Naltrexone Hcl 50 Mg Tablet) 50 mg PO DAILY [facility] Non-Formulary Medication (Ferrous Sulfate) 325 mg PO DAILY [facility] Non-Formulary Medication (Gabapentin) 600 mg PO TID [facility] Non-Formulary Medication (Dutasteride) 0.5 mg PO DAILY [facility] Non-Formulary Medication (Fluticasone Propionate) 2 puff INHALE BID [facility] Non-Formulary Medication (Risperidone Microspheres) 50 mg IM Q2W [facility] Omeprazole (Omeprazole 20 Mg Capsule.Dr) 20 mg PO DAILY@0630 [facility] Ondansetron HCl (Ondansetron Hcl 4 Mg/2 Ml Vial) 4 mg IVPUSH Q8H PRN PRN Reason: Nausea and Vomiting Oxycodone HCl (Oxycodone Hcl Immed Release 5 Mg Tablet) 5 mg PO Q4H PRN PRN Reason: Pain, Mild (Pain Scale 1-3) Last Admin: 01/22/25 05:28 Dose: 5 mg Oxycodone HCl (Oxycodone Hcl Immed Release 5 Mg Tablet) 10 mg PO Q4H PRN PRN Reason: Pain, Moderate(Pain Scale 4-6) Paroxetine HCl (Paroxetine Hcl 20 Mg Tablet) 20 mg PO DAILY [facility] Quetiapine Fumarate (Quetiapine Fumarate 50 Mg Tablet) 50 mg PO BEDTIME [facility] Sodium Chloride (0.9 % Sodium Chloride Flush 3 Ml Syringe) 3 ml IVFLUSH QSHIFT [facility] Last Admin: 01/21/25 23:48 Dose: Not Given Tamsulosin HCl (Tamsulosin Hcl 0.4 Mg Capsule) 0.8 mg PO BEDTIME [facility] Vitamin D (Cholecalciferol (Vitamin D3) 25 Mcg Tablet) 50 mcg PO DAILY [facility] Home Medications ?Medication ?Instructions ?Recorded ?Confirmed ?Last Taken ?Type amlodipine 5 mg tablet 5 mg PO BEDTIME 06/17/24 01/07/25 01/21/25 History naltrexone 50 mg tablet 50 mg PO DAILY 06/17/24 01/07/25 Unknown History omeprazole 20 mg capsule,delayed 20 mg PO DAILY@0630 06/17/24 01/07/25 01/21/25 History release melatonin 5 mg tablet 5 mg PO BEDTIME PRN Insomnia 12/02/24 01/07/25 Unknown History quetiapine 50 mg tablet (Seroquel) 50 mg PO BEDTIME 12/02/24 01/07/25 Unknown History B complex-vitamin C-folic acid ER 1 tab PO DAILY 01/22/25 01/22/25 01/20/25 History 400 mcg tablet,extended release acetaminophen 325 mg tablet 650 mg PO DAILY PRN pain 01/22/25 01/22/25 Unknown History benztropine 1 mg tablet 1 mg PO BEDTIME 01/22/25 01/22/25 01/20/25 History budesonide 90 mcg/actuation breath 1 inh inhalation BID 01/22/25 01/22/25 01/20/25 History activated powder inhaler (Pulmicort Flexhaler) gabapentin 300 mg capsule 300 mg PO BID 01/22/25 01/22/25 01/20/25 History ketorolac 0.5 % eye drops 1 drp ophthalmic (eye) BID 01/22/25 01/22/25 01/20/25 History risperidone 2 mg tablet (Risperdal) 2 mg PO DAILY PRN Anxiety 01/22/25 01/22/25 Unknown History Physical Exam Vital Signs: Vital Signs: Last Vital Signs Temp 97.9 F 01/22/25 06:41 Pulse 66 01/22/25 06:41 Resp 17 01/22/25 06:41 BP 172/92 H 01/22/25 06:41 Pulse Ox 92 01/22/25 06:41 O2 Del Method Oxymask 01/22/25 06:41 O2 Flow Rate 3 01/22/25 06:41 BMI result Body Mass Index 32.6 Const: Other: On O2 supplement General: comfortable Resp: Other: On O2 supplement, not short of breath Effort & Inspection: able to speak in complete sentences Cardio: Rate: regular rate GI: Other: Dressings dry Palpation (GI): Soft to palpation, not firm and no guarding : Other: Martinez in place Results Results Labs: Short CBC 01/21/25 01/22/25 Range/Units 20:24 07:34 WBC 18.0 H 18.3 H (4.8-10.8) X10*3/uL Hgb 16.4 15.8 (14.0-18.0) g/dl Hct 50.9 48.5 (42.0-52.0) % Plt Count 155 L D 144 L (160-400) X10*3/uL BMP 01/21/25 01/22/25 20:24 07:34 Sodium 150 H 148 H Potassium 4.3 4.4 Chloride 113 H 112 H Carbon Dioxide 26 27 BUN 18 H 16 Creatinine 1.12 1.02 Calcium 9.6 9.6 Liver Function 01/21/25 Range/Units 20:24 Total Bilirubin 0.4 (0.0-1.0) mg/dL AST 22 (5-37) U/L ALT 9 (0-40) U/L Alkaline Phosphatase 104 (39-117) U/L Albumin 4.2 (3.5-5.0) g/dL Assessment and Plan (1) Aspiration pneumonia: Status: Acute 64-year-old male who had undergone event was have an umbilical hernia with mesh yesterday, admitted because of low O2 sats postop in the recovery room. He had a chest x-ray show in infiltrates in the left lower lobe that suggest an aspiration pneumonia. He did have significant amounts of secretions during intubation for anesthesia yesterday He was been seen by the hospitalist service and has been started on IV antibiotics He also has electrolyte imbalance and has significant hypernatremia. This has improved this morning . His abdomen is soft and benign. His dressings are dry. The repair site is intact He can have regular diet. I will touch base with the hospitalist service. He currently has a Martinez catheter as well for urinary retention. Quality Stroke Does the patient have a stroke diagnosis?: No VTE Prior VTE?: No VTE Risk Level:: Surgical - low VTE Device Contraindication: N/A - Device Ordered VTE Drug Contraindication: Treatment Not Indicated Procedures Date of Service Date of Service: 01/24/25
[2025-01-22 08:00] LABS: B Type Natriuretic Peptide 137 pg/mL (<100)
[2025-01-22] MEDS: Ketorolac Tromethamine 30 MG/ML VIAL IVPUSH ×2 (09:02→23:44)
[2025-01-22] MEDS: Docusate Sodium 100 MG CAPSULE PO ×2 (09:02→21:12)
[2025-01-22] MEDS: Acetaminophen 325 MG TABLET 650 MG PO (09:02)
[2025-01-22] MEDS: 0.9 % Sodium Chloride Flush 3 ML SYRINGE IVFLUSH ×2 (09:03→21:13)
--- NOTE | 2025-01-22 09:13 | HO.POSTANES ---
Post Anesthesia Evaluation Post Anesthesia Evaluation Date of Service: 01/22/25 Vital Signs: Vital Signs Temp Pulse Resp BP Pulse Ox O2 Del Method O2 Flow Rate 01/22/25 06:41 97.9 F 66 17 172/92 H 92 Oxymask 3 01/22/25 03:31 97.6 F 67 16 172/78 H 96 Oxymask 3 01/21/25 23:45 96.9 F 69 16 156/71 H 95 Oxymask 3 Anesthesia: General LMA Mental Status: Awake Pain Control: Satisfactory Nausea/Vomiting: None Hydration: Adequate Anesthesia-Related Issues: No Anes. Related Issues
[2025-01-22] MEDS: Dextrose 5 % 1,000 ML 125 ML IVCONT ×2 (10:16→20:30)
--- NOTE | 2025-01-22 10:25 | PHA.MEDREC ---
Pharmacy Consult ? Medication Reconciliation Pharmacy has reviewed the medication reconciliation done by nursing staff and also went to talk to patient. Per patient, the staff at [facility] fill his medications for him. Called [facility] [phone] and spoke to Awilda (supervisor intermediates) and visiting nurse Merari [phone] to confirm medication list. Per Merari, amantadine has been discontinued, flovent is switched to pulmicort and last dose of risperdal Consta was on 01/19/2025. Patient last took amlodipine, omeprazole and levothyroxine on 01/21/25, Last dose of everything else was 01/20/25.
[2025-01-22] MEDS: Naltrexone HCl 50 MG TABLET PO (10:37)
[2025-01-22] MEDS: oxyCODONE HCl Immed Release 5 MG TABLET 10 MG PO ×2 (10:38→14:23)
[2025-01-22] MEDS: PARoxetine HCL 20 MG TABLET PO (10:38)
[2025-01-22] MEDS: Nicotine 21 MG PATCH.TD24 TRANSDERMA (10:38)
[2025-01-22] MEDS: Ezetimibe 10 MG TABLET PO (10:38)
[2025-01-22] MEDS: gemfibroziL 600 MG TABLET PO ×2 (10:38→21:12)
[2025-01-22] MEDS: Gabapentin 300 MG CAPSULE PO ×2 (10:38→21:12)
[2025-01-22] MEDS: Ferrous Sulfate 324 MG TABLET.DR PO (10:38)
[2025-01-22] MEDS: Cholecalciferol (Vitamin D3) 25 MCG TABLET 50 MCG PO (10:38)
[2025-01-22 10:42] LABS: Appearance Urine Clear; Color Urine Yellow; Glucose Urine UA Negative (Negative); Leukocyte Esterase Urine Negative (Negative); Nitrite Urine Negative (Negative); PH 6.5 (5.0-9.0); UMIC TRIGGER UA YES; Urine Blood Trace (Negative); Urine Ketones Negative (Negative); Urine Protein 100 (2+) mg/dL (Neg-Trace)
[2025-01-22 10:47] LABS: Bacteria Urine None Seen (None Seen); Hyaline Casts Urine 0-2 /LPF (0-2); RBC Urine 0-2 /HPF (0-2); Squamous Epithelial Cell Urine 0-2 /HPF (0-2); WBC Urine 0-5 /HPF (0-5)
--- NOTE | 2025-01-22 11:03 | P.PNIM_ITS ---
Subjective Subjective Date of Service: 01/22/25 Interval History: nasueous, weak Physical Exam 2 Vital Signs: Vital Signs: Last Vital Signs Temp 97.9 F 01/22/25 06:41 Pulse 66 01/22/25 06:41 Resp 17 01/22/25 06:41 BP 172/92 H 01/22/25 06:41 Pulse Ox 92 01/22/25 06:41 O2 Del Method Oxymask 01/22/25 06:41 O2 Flow Rate 3 01/22/25 06:41 BMI result Body Mass Index 32.6 lethargic oriented times 3, ill appearing, lungs dimisnihed Objective Data Active Medications Acetaminophen (Acetaminophen 325 Mg Tablet) 650 mg PO Q6H PRN PRN Reason: Pain, Mild 1-3,fever,headache Last Admin: 01/22/25 09:02 Dose: 650 mg Documented By: JAMI Albuterol Sulfate (Albuterol Sulfate (0.083%) 2.5 Mg/3 Ml Vial.Neb) 2.5 mg INHALE ONCE PRN PRN Reason: Shortness of Breath/Wheezing Last Admin: 01/21/25 16:53 Dose: 2.5 mg Documented By: DEVON Amlodipine Besylate (Amlodipine Besylate 5 Mg Tablet) 5 mg PO BEDTIME [facility]; Protocol Benztropine Mesylate (Benztropine Mesylate 1 Mg Tablet) 1 mg PO BEDTIME [facility] Docusate Sodium (Docusate Sodium 100 Mg Capsule) 100 mg PO BID [facility] Last Admin: 01/22/25 09:02 Dose: 100 mg Documented By: JAMI Ezetimibe (Ezetimibe 10 Mg Tablet) 10 mg PO DAILY [facility] Last Admin: 01/22/25 10:38 Dose: 10 mg Documented By: MERLIN Ferrous Sulfate (Ferrous Sulfate 324 Mg Tablet.) 324 mg PO DAILY [facility] Last Admin: 01/22/25 10:38 Dose: 324 mg Documented By: MERLIN Gabapentin (Gabapentin 300 Mg Capsule) 300 mg PO BID [facility] Last Admin: 01/22/25 10:38 Dose: 300 mg Documented By: MERLIN Gemfibrozil (Gemfibrozil 600 Mg Tablet) 600 mg PO BID [facility] Last Admin: 01/22/25 10:38 Dose: 600 mg Documented By: MERLIN Ampicillin Sodium/Sulbactam (Sodium 3 gm/ Sodium Chloride) 100 mls @ 200 mls/hr IV Q6H [facility] Last Admin: 01/22/25 09:03 Dose: 100 mls/hr Documented By: JAMI Dextrose (D5w) 1,000 mls @ 125 mls/hr IVCONT .Q8H [facility] Last Admin: 01/22/25 10:16 Dose: 125 mls/hr Documented By: JAMI Ketorolac Tromethamine (Ketorolac Tromethamine 30 Mg/Ml Vial) 30 mg IVPUSH Q6H PRN PRN Reason: Pain, Severe (Pain Scale 7-10) Stop: 01/26/25 18:28 Last Admin: 01/22/25 09:02 Dose: 30 mg Documented By: JAMI Ketorolac Tromethamine (Ketorolac Tromethamine 0.5% Op 5 Ml Drops) 1 drop EYE- BOTH BID [facility] Levothyroxine Sodium (Levothyroxine Sodium 112 Mcg Tablet) 112 mcg PO DAILY@0600 [facility] Melatonin (Melatonin 3 Mg Tablet) 6 mg PO BEDTIME PRN PRN Reason: Insomnia Metoclopramide HCl (Metoclopramide Hcl 10 Mg/2 Ml Vial) 10 mg IVPUSH Q6H PRN PRN Reason: Nausea and Vomiting Last Admin: 01/22/25 09:02 Dose: 10 mg Documented By: JAMI Naloxone HCl (Naloxone Hcl 0.4 Mg/Ml Vial) 0.04 mg IVPUSH Q5M PRN PRN Reason: Excessive sedation or RR < 8 Naltrexone HCl (Naltrexone Hcl 50 Mg Tablet) 50 mg PO DAILY [facility] Last Admin: 01/22/25 10:37 Dose: 50 mg Documented By: MERLIN Nicotine (Nicotine 21 Mg Patch.Td24) 21 mg TRANSDERMA DAILY [facility] Last Admin: 01/22/25 10:38 Dose: 21 mg Documented By: MERLIN Non-Formulary Medication (Dutasteride) 0.5 mg PO DAILY [facility] Non-Formulary Medication (Budesonide [Pulmicort Flexhaler]) 1 inhalation INHALE BID [facility] Omeprazole (Omeprazole 20 Mg Capsule.Dr) 20 mg PO DAILY@0630 [facility] Ondansetron HCl (Ondansetron Hcl 4 Mg/2 Ml Vial) 4 mg IVPUSH Q8H PRN PRN Reason: Nausea and Vomiting Oxycodone HCl (Oxycodone Hcl Immed Release 5 Mg Tablet) 5 mg PO Q4H PRN PRN Reason: Pain, Mild (Pain Scale 1-3) Last Admin: 01/22/25 05:28 Dose: 5 mg Documented By: CHRISTOPHER-CONNToya Oxycodone HCl (Oxycodone Hcl Immed Release 5 Mg Tablet) 10 mg PO Q4H PRN PRN Reason: Pain, Moderate(Pain Scale 4-6) Last Admin: 01/22/25 10:38 Dose: 10 mg Documented By: MERLIN Paroxetine HCl (Paroxetine Hcl 20 Mg Tablet) 20 mg PO DAILY [facility] Last Admin: 01/22/25 10:38 Dose: 20 mg Documented By: MERLIN Quetiapine Fumarate (Quetiapine Fumarate 50 Mg Tablet) 50 mg PO BEDTIME [facility] Risperidone (Risperidone 2 Mg Tablet) 2 mg PO DAILY PRN PRN Reason: Anxiety Sodium Chloride (0.9 % Sodium Chloride Flush 3 Ml Syringe) 3 ml IVFLUSH QSHIFT [facility] Last Admin: 01/22/25 09:03 Dose: 3 ml Documented By: HUMBLEYTOWMiles Tamsulosin HCl (Tamsulosin Hcl 0.4 Mg Capsule) 0.8 mg PO BEDTIME [facility] Vitamin D (Cholecalciferol (Vitamin D3) 25 Mcg Tablet) 50 mcg PO DAILY [facility] Last Admin: 01/22/25 10:38 Dose: 50 mcg Documented By: MERLIN Labs 01/22/25 07:34 01/22/25 07:34 Labs: Laboratory Results - last 24 hr 01/21/25 01/22/25 01/22/25 20:24 07:25 07:34 MCV 85.7 85.8 MCH 27.6 28.0 MCHC 32.2 32.6 RDW 16.7 H 16.3 H Plt Count 155 L D 144 L MPV 9.5 9.3 L Immature Gran % (Auto) 0.3 Neut % (Auto) 51.8 Lymph % (Auto) 43.3 [place] % (Auto) 4.2 Eos % (Auto) 0.2 Baso % (Auto) 0.2 Lymph # (Auto) 7.8 H [place] # (Auto) 0.8 Eos # (Auto) 0.0 Baso # (Auto) 0.0 Abs Immat Gran (auto) 0.06 H Absolute Neuts (auto) 9.3 H Absolute Nucleated RBC 0.000 0.000 Nucleated RBC % (auto) 0.0 0.0 Smear Tech's Comments VERIFIED Anion Gap 15 13 Estim Creat Clear Calc 76.9 85.6 Estimated GFR > 60 > 60 Random Glucose 152 H 137 H Estimat Average Glucose 103 Hemoglobin A1c % 5.2 Calcium 9.6 9.6 Total Bilirubin 0.4 AST 22 ALT 9 Alkaline Phosphatase 104 B-Natriuretic Peptide 137 H Total Protein 6.9 Albumin 4.2 Urine Color Yellow Urine Appearance Clear Urine pH 6.5 Ur Specific [place] 1.010 Urine Protein 100 (2+) H Urine Glucose (UA) Negative Urine Ketones Negative Urine Blood Trace H Urine Nitrite Negative Ur Leukocyte Esterase Negative Urine RBC 0-2 Urine WBC 0-5 Ur Squamous Epith Cells 0-2 Urine Bacteria None Seen Hyaline Casts 0-2 Assessment and Plan (1) Schizo-affective schizophrenia: Status: Acute Plan 58M PMH HLD, alcoholic steatohepatitis, copd, schizophrenia, CLL, HTN, GERD, bph, hypothyroid, admitted for elective umbilical hernia repair, course complicated by postop hypoxia and hypernatremia Acute hypoxic respiratory failure secondary to aspiration pneumonia Continue Unasyn and wean oxygen as tolerated Incentive spirometry Acute hypernatremia Due to deficit of free fluid, changed to D5W, monitor COPD Continue inhalers History of alcohol dependence Reports 7 year sobriety Schizophrenia Continue Risperdal, Paxil, amantadine, gabapentin, Seroquel Hypertension Amlodipine Leukocytosis due to CLL not sepsis Hypothyroid Continue levothyroxine BPH Flomax Quality Stroke Does the patient have a stroke diagnosis?: No VTE Prior VTE?: No VTE Risk Level:: Surgical - low VTE Device Contraindication: N/A - Device Ordered VTE Drug Contraindication: Treatment Not Indicated
--- NOTE | 2025-01-22 11:52 | MHC.CM.PN ---
PT FROM [facility] APT PT FEELS HE HAS A VNA /CALLED ASSISTED TO GET AGENY NAME [facility] WILL PROVIDE TRANSPORTAION WHEN DCD
[2025-01-22 12:14] LABS: Appearance Urine Clear; Color Urine Yellow; Glucose Urine UA Negative (Negative); Leukocyte Esterase Urine Negative (Negative); Nitrite Urine Negative (Negative); UMIC TRIGGER UA YES; Urine Blood Trace (Negative); Urine Ketones Negative (Negative); Urine Protein 300 (3+) mg/dL (Neg-Trace)
[2025-01-22 12:19] LABS: Bacteria Urine None Seen (None Seen); Hyaline Casts Urine 0-2 /LPF (0-2); Squamous Epithelial Cell Urine 0-2 /HPF (0-2); WBC Urine 0-5 /HPF (0-5)
[2025-01-22 12:22] LABS: Osmolality Urine 239 mosm/kg (373-1093)
[2025-01-22] MEDS: Ketorolac Tromethamine 0.5% Op 5 ML DROPS 1 DROP EYE-BOTH ×2 (14:24→21:37)
--- NOTE | 2025-01-22 15:01 | PM.EVENT ---
Event Note Date of Service: 01/22/25 Event Note: Seen on afternoon rounds He looks comfortable Pain appropriate to procedure Abdomen is soft Does not appear to be short of breath Dressings dry Good oral intake Continue current care for presumed pneumonia Appreciate hospitalist input Time Spent With Patient Time: Total time managing care of this patient today ____ minutes.
[2025-01-22] MEDS: ondansetron HCL 4 MG/2 ML VIAL IVPUSH (15:41)
--- NOTE | 2025-01-22 16:10 | HO.WOUND ---
Wound Consult: Initial 64yr old?[place] [facility] [place] See progress notes and H&P for detailed history.? Wound consult placed for buttock.? Patient agreeable to assessment and photo documentation.? Bilateral Ischium Etiology: ?Unstageable Pressure injuries Present on Admission Wound Bed: dry thickens lifting tissue obscuring wound bed assessment Drainage / Odor: None noted Edges: ? irregular and lifting Kim wound: ? pink erythema and MASD noted to Perianal buttock region No Induration, Fluctuance or Warmth noted Pain: denies Goals of Treatment: ? Triad and foam to allow for autolytic healing and protect from friction Recommendations: 1. Turn and Reposition every 2 hours and as needed for patient comfort.? Use pillows or wedges to support off loading positions. 2. Off Load all bony prominences with use of pillows and heel boots if needed.? Apply Preventative foams where needed. ? 3. Monitor for incontinence and moisture control, use barrier creams when needed for prevention and treatment. 4. Provide adequate and supplemental nutrition.? 5. Order low air loss mattress. 6. When applicable maintain blood glucose levels per Providers order. Buttock - Off Load Pressure with Q2 hr turns and use of pillows - Cleanse with PH balance spray or wipes, pat dry. ?Apply thin layer of barrier cream to affected area.? Apply twice daily and Reapply thin layer PRN after each episode of incontinence. Bilateral Ischium - Off Load Pressure with Q2 hr turns and use of pillows - Cleanse with PH balance spray or wipes, pat dry. ?Apply thin layer of Triad to wound bed. Do not remove all of paste between applications as this may cause further skin damage.? Cover with foam dressing to aid in off loading and protection from friction. Change every 3 days and PRN. Re-consult wound care Nurse for wound deterioration or wound changes.
[2025-01-22] MEDS: QUEtiapine Fumarate 50 MG TABLET PO (21:12)
[2025-01-22] MEDS: Tamsulosin HCL 0.4 MG CAPSULE 0.8 MG PO (21:12)
[2025-01-22] MEDS: Benztropine Mesylate 1 MG TABLET PO (21:12)
[2025-01-22] MEDS: amLODIPine Besylate 5 MG TABLET PO (21:12)
[2025-01-23] VITALS (7 sets, daily range): BP systolic 158–205; BP diastolic 72–88; PULSE 56–68; RESP 16–18; TEMP 36–37; O2SAT 91–93
--- NOTE | 2025-01-23 | ECG_ITS ---
Test Reason : cp Blood Pressure : */* mmHG Vent. Rate : 59 BPM Atrial Rate : 59 BPM P-R Int : 152 ms QRS Dur : 96 ms QT Int : 388 ms P-R-T Axes : 68 70 36 degrees QTcB Int : 384 ms Sinus bradycardia Possible Left atrial enlargement Cannot rule out Anterior infarct , age undetermined Abnormal ECG When compared with ECG of 19-Jun-2024 04:49, Borderline criteria for Inferior infarct are no longer Present T wave inversion less evident in Inferior leads T wave inversion no longer evident in Lateral leads Referred By: Eric Wray Electronically Signed By: ANGEL KOENIG
[2025-01-23] MEDS: Ampicillin Sodium/Sulbactam Na 3 GM in 0.9 % Sodium Chloride 100 ML IV ×4 (02:57→20:32)
[2025-01-23] MEDS: Acetaminophen 325 MG TABLET 650 MG PO ×2 (03:37→17:21)
[2025-01-23] MEDS: Omeprazole 20 MG CAPSULE.DR PO (05:48)
[2025-01-23] MEDS: Levothyroxine Sodium 112 MCG TABLET PO (05:48)
[2025-01-23 06:59] LABS: Anion Gap 14 (12-20); Blood Urea Nitrogen 15 mg/dL (9-16); Calcium 9.6 mg/dL (8.4-10.2); Carbon Dioxide 25 mmol/L (22-29); Chloride 106 mmol/L (96-108); Estimated Glomerular Filt Rate > 60; Glucose Random 126 mg/dL (60-115); Potassium 3.7 mmol/L (3.3-5.1); Sodium 141 mmol/L (135-145)
[2025-01-23 07:04] LABS: Hematocrit 46.6 % (42.0-52.0); Hemoglobin 15.2 g/dl (14.0-18.0); Mean Corpuscular HGB Conc 32.6 g/dl (31.0-36.0); Mean Corpuscular Hemoglobin 27.8 pg (27.0-33.0); Mean Corpuscular Volume 85.2 fL (80.0-98.0); Mean Platelet Volume 9.8 fL (9.4-12.4); Platelet Count 146 X10*3/uL (160-400); Red Blood Count 5.47 X10*6/uL (4.60-5.80); Red Cell Distribution Width 15.8 % (11.0-16.0); White Blood Count 16.8 X10*3/uL (4.8-10.8)
--- NOTE | 2025-01-23 07:34 | PM.PNGS ---
Subjective Subjective Date of Service: 01/23/25 <Jackson Moya PA-C - Last Filed: 01/23/25 11:31> 01/23/25 <Jeff Harrell MD - Last Filed: 01/23/25 14:14> Patient reports: feels better, pain is less, tolerating a regular diet, flatus and no bowel movement <Jackson Moya PA-C - Last Filed: 01/23/25 11:31> Interval history: Patient doing better today. States his pain is improved, most of his pain is now related to the incision site. Continues to have some nausea. Patient denies nausea at this time. He is tolerating diet well. States he has been out of bed to the chair. States he does not want to continue with oxycodone for pain, would prefer tylenol. <JULIANNA Parnell Last Filed: 01/23/25 11:31> Physical Exam Vital Signs: Vital Signs: Last Vital Signs Temp 98.6 F 01/23/25 03:25 Pulse 67 01/23/25 03:25 Resp 16 01/23/25 03:25 BP 168/72 H 01/23/25 03:25 Pulse Ox 93 01/23/25 03:25 O2 Del Method Oxymask 01/23/25 03:25 O2 Flow Rate 3 01/23/25 03:25 BMI result Body Mass Index 32.6 <JULIANNA Parnell Last Filed: 01/23/25 11:31> Const: General: comfortable and no acute distress <JULIANNA Parnell Last Filed: 01/23/25 11:31> Orientation/consciousness: patient oriented x3 <JULIANNA Parnell Last Filed: 01/23/25 11:31> Resp: Effort & Inspection: normal respiratory effort and able to speak in complete sentences <JULIANNA Parnell Last Filed: 01/23/25 11:31> GI: Other: Incision site is clean dry and intact. Dressing removed, steri strips intact <JULIANNA Parnell Last Filed: 01/23/25 11:31> Inspection: No distended <JULIANNA Parnell Last Filed: 01/23/25 11:31> Palpation (GI): Soft to palpation, not firm, Tenderness to palpation present (GI) (mild incisional site tenderness), no guarding and not rigid <Jackson Moya PA-C - Last Filed: 01/23/25 11:31> Neuro: General: patient oriented x3 <Jackson Moya PA-C - Last Filed: 01/23/25 11:31> Objective Data Active Medications Acetaminophen (Acetaminophen 325 Mg Tablet) 650 mg PO Q6H PRN PRN Reason: Pain, Mild 1-3,fever,headache Last Admin: 01/23/25 03:37 Dose: 650 mg Documented By: WILBUR Albuterol Sulfate (Albuterol Sulfate (0.083%) 2.5 Mg/3 Ml Vial.Neb) 2.5 mg INHALE ONCE PRN PRN Reason: Shortness of Breath/Wheezing Last Admin: 01/21/25 16:53 Dose: 2.5 mg Documented By: DEVON Amlodipine Besylate (Amlodipine Besylate 5 Mg Tablet) 5 mg PO BEDTIME [facility]; Protocol Last Admin: 01/22/25 21:12 Dose: 5 mg Documented By: WILBUR Benztropine Mesylate (Benztropine Mesylate 1 Mg Tablet) 1 mg PO BEDTIME [facility] Last Admin: 01/22/25 21:12 Dose: 1 mg Documented By: WILBUR Docusate Sodium (Docusate Sodium 100 Mg Capsule) 100 mg PO BID [facility] Last Admin: 01/22/25 21:12 Dose: 100 mg Documented By: WILBUR Ezetimibe (Ezetimibe 10 Mg Tablet) 10 mg PO DAILY [facility] Last Admin: 01/22/25 10:38 Dose: 10 mg Documented By: MERLIN Ferrous Sulfate (Ferrous Sulfate 324 Mg Tablet.) 324 mg PO DAILY [facility] Last Admin: 01/22/25 10:38 Dose: 324 mg Documented By: MERLIN Gabapentin (Gabapentin 300 Mg Capsule) 300 mg PO BID [facility] Last Admin: 01/22/25 21:12 Dose: 300 mg Documented By: WILBUR Gemfibrozil (Gemfibrozil 600 Mg Tablet) 600 mg PO BID [facility] Last Admin: 01/22/25 21:12 Dose: 600 mg Documented By: WILBUR Ampicillin Sodium/Sulbactam (Sodium 3 gm/ Sodium Chloride) 100 mls @ 200 mls/hr IV Q6H [facility] Last Infusion: 01/23/25 03:28 Dose: Infused Documented By: WILBUR Ketorolac Tromethamine (Ketorolac Tromethamine 30 Mg/Ml Vial) 30 mg IVPUSH Q6H PRN PRN Reason: Pain, Severe (Pain Scale 7-10) Stop: 01/26/25 18:28 Last Admin: 01/22/25 23:44 Dose: 30 mg Documented By: WILBUR Ketorolac Tromethamine (Ketorolac Tromethamine 0.5% Op 5 Ml Drops) 1 drop EYE-BOTH BID [facility] Last Admin: 01/22/25 21:37 Dose: 1 drop Documented By: WILBUR Levothyroxine Sodium (Levothyroxine Sodium 112 Mcg Tablet) 112 mcg PO DAILY@0600 [facility] Last Admin: 01/23/25 05:48 Dose: 112 mcg Documented By: WILBUR Melatonin (Melatonin 3 Mg Tablet) 6 mg PO BEDTIME PRN PRN Reason: Insomnia Metoclopramide HCl (Metoclopramide Hcl 10 Mg/2 Ml Vial) 10 mg IVPUSH Q6H PRN PRN Reason: Nausea and Vomiting Last Admin: 01/22/25 21:12 Dose: 10 mg Documented By: WILBUR Naloxone HCl (Naloxone Hcl 0.4 Mg/Ml Vial) 0.04 mg IVPUSH Q5M PRN PRN Reason: Excessive sedation or RR < 8 Naltrexone HCl (Naltrexone Hcl 50 Mg Tablet) 50 mg PO DAILY [facility] Last Admin: 01/22/25 10:37 Dose: 50 mg Documented By: MERLIN Nicotine (Nicotine 21 Mg Patch.Td24) 21 mg TRANSDERMA DAILY [facility] Last Admin: 01/22/25 10:38 Dose: 21 mg Documented By: MERLIN Non-Formulary Medication (Dutasteride) 0.5 mg PO DAILY [facility] Non-Formulary Medication (Budesonide [Pulmicort Flexhaler]) 1 inhalation INHALE BID [facility] Omeprazole (Omeprazole 20 Mg Capsule.Dr) 20 mg PO DAILY@0630 [facility] Last Admin: 01/23/25 05:48 Dose: 20 mg Documented By: WILBUR Ondansetron HCl (Ondansetron Hcl 4 Mg/2 Ml Vial) 4 mg IVPUSH Q8H PRN PRN Reason: Nausea and Vomiting Last Admin: 01/22/25 15:41 Dose: 4 mg Documented By: JAMI Oxycodone HCl (Oxycodone Hcl Immed Release 5 Mg Tablet) 5 mg PO Q4H PRN PRN Reason: Pain, Mild (Pain Scale 1-3) Last Admin: 01/22/25 21:12 Dose: 5 mg Documented By: WILBUR Oxycodone HCl (Oxycodone Hcl Immed Release 5 Mg Tablet) 10 mg PO Q4H PRN PRN Reason: Pain, Moderate(Pain Scale 4-6) Last Admin: 01/22/25 14:23 Dose: 10 mg Documented By: MERLIN Paroxetine HCl (Paroxetine Hcl 20 Mg Tablet) 20 mg PO DAILY [facility] Last Admin: 01/22/25 10:38 Dose: 20 mg Documented By: MERLIN Quetiapine Fumarate (Quetiapine Fumarate 50 Mg Tablet) 50 mg PO BEDTIME [facility] Last Admin: 01/22/25 21:12 Dose: 50 mg Documented By: WILBUR Risperidone (Risperidone 2 Mg Tablet) 2 mg PO DAILY PRN PRN Reason: Anxiety Sodium Chloride (0.9 % Sodium Chloride Flush 3 Ml Syringe) 3 ml IVFLUSH QSHIFT [facility] Last Admin: 01/22/25 21:13 Dose: 3 ml Documented By: WILBUR Tamsulosin HCl (Tamsulosin Hcl 0.4 Mg Capsule) 0.8 mg PO BEDTIME [facility] Last Admin: 01/22/25 21:12 Dose: 0.8 mg Documented By: WILBUR Vitamin D (Cholecalciferol (Vitamin D3) 25 Mcg Tablet) 50 mcg PO DAILY [facility] Last Admin: 01/22/25 10:38 Dose: 50 mcg Documented By: MERLIN <Jackson Moya PA-C - Last Filed: 01/23/25 11:31> Labs CBC & Chem 7: 01/23/25 06:08 01/23/25 06:08 <Jackson Moya PA-C - Last Filed: 01/23/25 11:31> Labs: Laboratory Results - last 24 hr 01/22/25 01/22/2525 07:25 07:34 11:59 MCV 85.8 MCH 28.0 MCHC 32.6 RDW 16.3 H Plt Count 144 L MPV 9.3 L Absolute Nucleated RBC 0.000 Nucleated RBC % (auto) 0.0 Anion Gap 13 Estim Creat Clear Calc 85.6 Estimated GFR > 60 Random Glucose 137 H Calcium 9.6 B-Natriuretic Peptide 137 H Urine Color Yellow Yellow Urine Appearance Clear Clear Urine pH 6.5 6.0 Ur Specific [place] 1.010 1.010 Urine Protein 100 (2+) H 300 (3+) H Urine Glucose (UA) Negative Negative Urine Ketones Negative Negative Urine Blood Trace H Trace H Urine Nitrite Negative Negative Ur Leukocyte Esterase Negative Negative Urine RBC 0-2 3-5 H Urine WBC 0-5 0-5 Ur Squamous Epith Cells 0-2 0-2 Urine Bacteria None Seen None Seen Hyaline Casts 0-2 0-2 Urine Osmolality Ur Random Sodium 40.0 01/22/25 01/23/25 12:00 06:08 MCV 85.2 MCH 27.8 MCHC 32.6 RDW 15.8 Plt Count 146 L MPV 9.8 Absolute Nucleated RBC 0.000 Nucleated RBC % (auto) 0.0 Anion Gap 14 Estim Creat Clear Calc 91.0 Estimated GFR > 60 Random Glucose 126 H Calcium 9.6 B-Natriuretic Peptide Urine Color Urine Appearance Urine pH Ur Specific [place] Urine Protein Urine Glucose (UA) Urine Ketones Urine Blood Urine Nitrite Ur Leukocyte Esterase Urine RBC Urine WBC Ur Squamous Epith Cells Urine Bacteria Hyaline Casts Urine Osmolality 239 L Ur Random Sodium <Jackson Moya PA-C - Last Filed: 01/23/25 11:31> Procedures Date of Service Date of Service: 01/23/25 <Jackson Moya PA-C - Last Filed: 01/23/25 11:31> 01/23/25 <Jeff Harrell MD - Last Filed: 01/23/25 14:14> Progress Note: A&P Assessment and plan (1) Aspiration pneumonia: Status: Acute <Jackson Moya PA-C - Last Filed: 01/23/25 11:31> Assessment and Plan: Denies significant pain As per nurse, O2 sats dropping a little bit overnight Currently on 1 L/min O2 by nasal cannula Abdomen is soft and benign Incision clean and dry Looks well and comfortable On IV antibiotics for presumed pneumonia Out of bed to chair Appreciate hospitalist input Seen and examined independently <Jeff Harrell MD - Last Filed: 01/23/25 14:14> (2) S/P hernia repair: Status: Acute <Jackson Moya PA-C - Last Filed: 01/23/25 11:31> Assessment and Plan: 64 year old male POD2 s/p umbilical hernia repair. Patients pain is improving, mild LUQ pain to palpation. Exam otherwise benign. Incision site clean and dry, dressing removed at bedside. Steri strips in place. Patient tolerating diet. Continue with current pain regimen Recommend increasing ambulation as tolerated, continue spirometry <Jackson Moya PA-C - Last Filed: 01/23/25 11:31> Time Spent With Patient Time: Total time managing care of this patient today ____ minutes. <Jackson Moya PA-C - Last Filed: 01/23/25 11:31> Quality Stroke Does the patient have a stroke diagnosis?: No <Jackson Moya PA-C - Last Filed: 01/23/25 11:31> VTE Prior VTE?: No <Jackson Moya PA-C - Last Filed: 01/23/25 11:31> VTE Risk Level:: Surgical - low <Jackson Moya PA-C - Last Filed: 01/23/25 11:31> VTE Device Contraindication: N/A - Device Ordered <Jackson Moya PA-C - Last Filed: 01/23/25 11:31> VTE Drug Contraindication: Treatment Not Indicated <Jackson Moya PA-C - Last Filed: 01/23/25 11:31>
[2025-01-23] MEDS: Metoclopramide HCl 10 MG/2 ML VIAL IVPUSH ×2 (07:42→17:59)
[2025-01-23] MEDS: 0.9 % Sodium Chloride Flush 3 ML SYRINGE IVFLUSH ×3 (07:42→20:31)
--- NOTE | 2025-01-23 08:40 | P.PNIM_ITS ---
Subjective Subjective Date of Service: 01/23/25 Interval History: nasueous, weak Physical Exam 2 Vital Signs: Vital Signs: Last Vital Signs Temp 98.0 F 01/23/25 07:34 Pulse 56 01/23/25 07:34 Resp 16 01/23/25 07:34 BP 183/83 H 01/23/25 07:34 Pulse Ox 92 01/23/25 07:34 O2 Del Method Nasal Cannula 01/23/25 07:34 O2 Flow Rate 2 01/23/25 07:34 BMI result Body Mass Index 32.6 Const: General: comfortable and no acute distress O rientation/consciousness: patient oriented x3 Resp: Effort & Inspection: normal respiratory effort and able to speak in complete sentences GI: Other: Incision site is clean dry and intact. Dressing removed, steri strips intact Inspection: No distended Palpation (GI): Soft to palpation, not firm, Tenderness to palpation present (GI) (mild incisional site tenderness), no guarding and not rigid Neuro: General: patient oriented x3 Objective Data Active Medications Acetaminophen (Acetaminophen 325 Mg Tablet) 650 mg PO Q6H PRN PRN Reason: Pain, Mild 1-3,fever,headache Last Admin: 01/23/25 03:37 Dose: 650 mg Documented By: WILBUR Albuterol Sulfate (Albuterol Sulfate (0.083%) 2.5 Mg/3 Ml Vial.Neb) 2.5 mg INHALE ONCE PRN PRN Reason: Shortness of Breath/Wheezing Last Admin: 01/21/25 16:53 Dose: 2.5 mg Documented By: DEVON Amlodipine Besylate (Amlodipine Besylate 5 Mg Tablet) 5 mg PO BEDTIME [facility]; Protocol Last Admin: 01/22/25 21:12 Dose: 5 mg Documented By: WILBUR Benztropine Mesylate (Benztropine Mesylate 1 Mg Tablet) 1 mg PO BEDTIME [facility] Last Admin: 01/22/25 21:12 Dose: 1 mg Documented By: WILBUR Docusate Sodium (Docusate Sodium 100 Mg Capsule) 100 mg PO BID [facility] Last Admin: 01/22/25 21:12 Dose: 100 mg Documented By: WILBUR Ezetimibe (Ezetimibe 10 Mg Tablet) 10 mg PO DAILY [facility] Last Admin: 01/22/25 10:38 Dose: 10 mg Documented By: MERLIN Ferrous Sulfate (Ferrous Sulfate 324 Mg Tablet.) 324 mg PO DAILY [facility] Last Admin: 01/22/25 10:38 Dose: 324 mg Documented By: MERLIN Gabapentin (Gabapentin 300 Mg Capsule) 300 mg PO BID [facility] Last Admin: 01/22/25 21:12 Dose: 300 mg Documented By: WILBUR Gemfibrozil (Gemfibrozil 600 Mg Tablet) 600 mg PO BID [facility] Last Admin: 01/22/25 21:12 Dose: 600 mg Documented By: WILBUR Ampicillin Sodium/Sulbactam (Sodium 3 gm/ Sodium Chloride) 100 mls @ 200 mls/hr IV Q6H [facility] Last Infusion: 01/23/25 03:28 Dose: Infused Documented By: WILBUR Ketorolac Tromethamine (Ketorolac Tromethamine 30 Mg/Ml Vial) 30 mg IVPUSH Q6H PRN PRN Reason: Pain, Severe (Pain Scale 7-10) Stop: 01/26/25 18:28 Last Admin: 01/22/25 23:44 Dose: 30 mg Documented By: WILBUR Ketorolac Tromethamine (Ketorolac Tromethamine 0.5% Op 5 Ml Drops) 1 drop EYE- BOTH BID [facility] Last Admin: 01/22/25 21:37 Dose: 1 drop Documented By: WILBUR Levothyroxine Sodium (Levothyroxine Sodium 112 Mcg Tablet) 112 mcg PO DAILY@0600 [facility] Last Admin: 01/23/25 05:48 Dose: 112 mcg Documented By: WILBUR Melatonin (Melatonin 3 Mg Tablet) 6 mg PO BEDTIME PRN PRN Reason: Insomnia Metoclopramide HCl (Metoclopramide Hcl 10 Mg/2 Ml Vial) 10 mg IVPUSH Q6H PRN PRN Reason: Nausea and Vomiting Last Admin: 01/23/25 07:42 Dose: 10 mg Documented By: JOSETTE Naloxone HCl (Naloxone Hcl 0.4 Mg/Ml Vial) 0.04 mg IVPUSH Q5M PRN PRN Reason: Excessive sedation or RR < 8 Naltrexone HCl (Naltrexone Hcl 50 Mg Tablet) 50 mg PO DAILY [facility] Last Admin: 01/22/25 10:37 Dose: 50 mg Documented By: MERLIN Nicotine (Nicotine 21 Mg Patch.Td24) 21 mg TRANSDERMA DAILY [facility] Last Admin: 01/22/25 10:38 Dose: 21 mg Documented By: MERLIN Non-Formulary Medication (Dutasteride) 0.5 mg PO DAILY [facility] Non-Formulary Medication (Budesonide [Pulmicort Flexhaler]) 1 inhalation INHALE BID [facility] Omeprazole (Omeprazole 20 Mg Capsule.Dr) 20 mg PO DAILY@0630 [facility] Last Admin: 01/23/25 05:48 Dose: 20 mg Documented By: WILBUR Ondansetron HCl (Ondansetron Hcl 4 Mg/2 Ml Vial) 4 mg IVPUSH Q8H PRN PRN Reason: Nausea and Vomiting Last Admin: 01/22/25 15:41 Dose: 4 mg Documented By: JAMI Oxycodone HCl (Oxycodone Hcl Immed Release 5 Mg Tablet) 5 mg PO Q4H PRN PRN Reason: Pain, Mild (Pain Scale 1-3) Last Admin: 01/22/25 21:12 Dose: 5 mg Documented By: WILBUR Oxycodone HCl (Oxycodone Hcl Immed Release 5 Mg Tablet) 10 mg PO Q4H PRN PRN Reason: Pain, Moderate(Pain Scale 4-6) Last Admin: 01/22/25 14:23 Dose: 10 mg Documented By: MERLIN Paroxetine HCl (Paroxetine Hcl 20 Mg Tablet) 20 mg PO DAILY [facility] Last Admin: 01/22/25 10:38 Dose: 20 mg Documented By: MERLIN Quetiapine Fumarate (Quetiapine Fumarate 50 Mg Tablet) 50 mg PO BEDTIME [facility] Last Admin: 01/22/25 21:12 Dose: 50 mg Documented By: WILBUR Risperidone (Risperidone 2 Mg Tablet) 2 mg PO DAILY PRN PRN Reason: Anxiety Sodium Chloride (0.9 % Sodium Chloride Flush 3 Ml Syringe) 3 ml IVFLUSH QSHIFT [facility] Last Admin: 01/23/25 07:42 Dose: 3 ml Documented By: JOSETTE Tamsulosin HCl (Tamsulosin Hcl 0.4 Mg Capsule) 0.8 mg PO BEDTIME [facility] Last Admin: 01/22/25 21:12 Dose: 0.8 mg Documented By: WILBUR Vitamin D (Cholecalciferol (Vitamin D3) 25 Mcg Tablet) 50 mcg PO DAILY [facility] Last Admin: 01/22/25 10:38 Dose: 50 mcg Documented By: MERLIN Labs 01/23/25 06:08 01/23/25 06:08 Labs: Laboratory Results - last 24 hr 01/22/25 01/22/25 01/22/25 07:25 11:59 12:00 MCV MCH MCHC RDW Plt Count MPV Absolute Nucleated RBC Nucleated RBC % (auto) Anion Gap Estim Creat Clear Calc Estimated GFR Random Glucose Calcium Urine Color Yellow Yellow Urine Appearance Clear Clear Urine pH 6.5 6.0 Ur Specific [place] 1.010 1.010 Urine Protein 100 (2+) H 300 (3+) H Urine Glucose (UA) Negative Negative Urine Ketones Negative Negative Urine Blood Trace H Trace H Urine Nitrite Negative Negative Ur Leukocyte Esterase Negative Negative Urine RBC 0-2 3-5 H Urine WBC 0-5 0-5 Ur Squamous Epith Cells 0-2 0-2 Urine Bacteria None Seen None Seen Hyaline Casts 0-2 0-2 Urine Osmolality 239 L Ur Random Sodium 40.0 01/23/25 06:08 MCV 85.2 MCH 27.8 MCHC 32.6 RDW 15.8 Plt Count 146 L MPV 9.8 Absolute Nucleated RBC 0.000 Nucleated RBC % (auto) 0.0 Anion Gap 14 Estim Creat Clear Calc 91.0 Estimated GFR > 60 Random Glucose 126 H Calcium 9.6 Urine Color Urine Appearance Urine pH Ur Specific [place] Urine Protein Urine Glucose (UA) Urine Ketones Urine Blood Urine Nitrite Ur Leukocyte Esterase Urine RBC Urine WBC Ur Squamous Epith Cells Urine Bacteria Hyaline Casts Urine Osmolality Ur Random Sodium Assessment and Plan (1) Schizo-affective schizophrenia: Status: Acute Plan 58M PMH HLD, alcoholic steatohepatitis, copd, schizophrenia, CLL, HTN, GERD, bph, hypothyroid, admitted for elective umbilical hernia repair, course complicated by postop hypoxia and hypernatremia Acute hypoxic respiratory failure secondary to aspiration pneumonia Continue Unasyn and wean oxygen as tolerated Incentive spirometry Acute hypernatremia resolved after d5w, follow up bmp COPD Continue inhalers History of alcohol dependence Reports 7 year sobriety Schizophrenia Continue Risperdal, Paxil, amantadine, gabapentin, Seroquel Hypertension Amlodipine Leukocytosis due to CLL not sepsis Hypothyroid Continue levothyroxine BPH Flomax Quality Stroke Does the patient have a stroke diagnosis?: No VTE Prior VTE?: No VTE Risk Level:: Surgical - low VTE Device Contraindication: N/A - Device Ordered VTE Drug Contraindication: Treatment Not Indicated
[2025-01-23] MEDS: Nicotine 21 MG PATCH.TD24 TRANSDERMA (08:52)
[2025-01-23] MEDS: Ferrous Sulfate 324 MG TABLET.DR PO (08:52)
[2025-01-23] MEDS: Docusate Sodium 100 MG CAPSULE PO ×2 (08:52→20:30)
[2025-01-23] MEDS: Cholecalciferol (Vitamin D3) 25 MCG TABLET 50 MCG PO (08:52)
[2025-01-23] MEDS: gemfibroziL 600 MG TABLET PO ×2 (08:52→20:31)
[2025-01-23] MEDS: Ezetimibe 10 MG TABLET PO (08:52)
[2025-01-23] MEDS: PARoxetine HCL 20 MG TABLET PO (08:52)
[2025-01-23] MEDS: Ketorolac Tromethamine 0.5% Op 5 ML DROPS 1 DROP EYE-BOTH ×2 (08:52→20:31)
[2025-01-23] MEDS: Gabapentin 300 MG CAPSULE PO ×2 (08:52→20:30)
[2025-01-23] MEDS: Naltrexone HCl 50 MG TABLET PO (08:55)
--- NOTE | 2025-01-23 14:13 | PM.EVENT ---
Event Note Date of Service: 01/23/25 Event Note: Seen on afternoon rounds Looks comfortable Tolerating diet Still on O2 supplement with a nasal cannula Abdomen is soft and benign Stable vital signs Discussed with the hospitalist service - once O2 sats are more stable off supplement, plan to discharge patient home on antibiotics Time Spent With Patient Time: Total time managing care of this patient today ____ minutes.
[2025-01-23] MEDS: Labetalol HCL 100 MG/20 ML VIAL 10 MG IVPUSH (17:55)
[2025-01-23] MEDS: HYDROmorphone HCl 0.5 MG/0.5 ML SYRINGE IVPUSH (18:00)
[2025-01-23] MEDS: Nitroglycerin 0.4 MG TAB.SUBL SUBLINGUAL (18:01)
[2025-01-23 18:17] LABS: Troponin-I High Sensitivity 10.4 ng/L (<3.5-35.0)
[2025-01-23] MEDS: amLODIPine Besylate 5 MG TABLET PO (20:30)
[2025-01-23] MEDS: Tamsulosin HCL 0.4 MG CAPSULE 0.8 MG PO (20:30)
[2025-01-23] MEDS: QUEtiapine Fumarate 50 MG TABLET PO (20:31)
[2025-01-23] MEDS: Benztropine Mesylate 1 MG TABLET PO (20:31)
[2025-01-23] MEDS: Melatonin 3 MG TABLET 6 MG PO (20:31)
[2025-01-23] MEDS: Nystatin Powder 15 GM BOTTLE 1 APPL TOPICAL (23:16)
[2025-01-24 03:06] VITALS: BP 168/73; PULSE 74; RESP 20; TEMP 36.1; O2SAT 93
[2025-01-24] MEDS: Ampicillin Sodium/Sulbactam Na 3 GM in 0.9 % Sodium Chloride 100 ML IV ×2 (03:52→07:54)
[2025-01-24] MEDS: Omeprazole 20 MG CAPSULE.DR PO (06:21)
[2025-01-24] MEDS: Levothyroxine Sodium 112 MCG TABLET PO (06:21)
[2025-01-24 07:02] VITALS: BP 165/79; PULSE 68; RESP 16; TEMP 36.7; O2SAT 92
[2025-01-24] MEDS: Naltrexone HCl 50 MG TABLET PO (07:49)
[2025-01-24] MEDS: Nicotine 21 MG PATCH.TD24 TRANSDERMA (07:50)
[2025-01-24] MEDS: Docusate Sodium 100 MG CAPSULE PO (07:50)
[2025-01-24] MEDS: Ferrous Sulfate 324 MG TABLET.DR PO (07:50)
[2025-01-24] MEDS: Gabapentin 300 MG CAPSULE PO (07:50)
[2025-01-24] MEDS: gemfibroziL 600 MG TABLET PO (07:50)
[2025-01-24] MEDS: Ezetimibe 10 MG TABLET PO (07:50)
[2025-01-24] MEDS: PARoxetine HCL 20 MG TABLET PO (07:50)
[2025-01-24] MEDS: Cholecalciferol (Vitamin D3) 25 MCG TABLET 50 MCG PO (07:50)
[2025-01-24] MEDS: 0.9 % Sodium Chloride Flush 3 ML SYRINGE IVFLUSH (07:50)
[2025-01-24] MEDS: Ketorolac Tromethamine 0.5% Op 5 ML DROPS 1 DROP EYE-BOTH (08:02)
[2025-01-24] MEDS: Nystatin Powder 15 GM BOTTLE 1 APPL TOPICAL (08:02)
--- NOTE | 2025-01-24 08:10 | PM.PNGS ---
Subjective Subjective Date of Service: 01/24/25 <Jackson Moya PA-C - Last Filed: 01/24/25 08:23> 01/24/25 <Jeff Harrell MD - Last Filed: 01/24/25 09:22> Interval history: Patient doing well today. Patients concern is the bleeding from his incision site, soaked a dressing overnight. Reports his pain is improving. Has some intermittent nausea. Has been ambulating to the chair and bathroom. Denies bowel movement. Endorses flatus. Tolerating diet but states he does not care for the food. <Jackson Moya PA-C - Last Filed: 01/24/25 08:23> Physical Exam Vital Signs: Vital Signs: Last Vital Signs Temp 98.1 F 01/24/25 07:02 Pulse 68 01/24/25 07:02 Resp 16 01/24/25 07:02 BP 165/79 H 01/24/25 07:02 Pulse Ox 92 01/24/25 07:02 O2 Del Method Nasal Cannula 01/24/25 07:02 O2 Flow Rate 1 01/24/25 07:02 BMI result Body Mass Index 32.6 <Jackson Moya PA-C - Last Filed: 01/24/25 08:23> Const: General: no acute distress <JULIANNA Parenll Last Filed: 01/24/25 08:23> Orientation/consciousness: patient oriented x3 <JULIANNA Parnell Last Filed: 01/24/25 08:23> Resp: Other: continued use of supplementary oxygen <Jackson Moya PA-C - Last Filed: 01/24/25 08:23> Effort & Inspection: able to speak in complete sentences <Jackson Moya PA-C - Last Filed: 01/24/25 08:23> GI: Other: Incision site dressing completely saturated with a moderate clot. Incision is intact. No surrounding erythema, edema or purulent discharge. <JULIANNA Parnell Last Filed: 01/24/25 08:23> Inspection: No distended <JULIANNA Parnell Last Filed: 01/24/25 08:23> Palpation (GI): Soft to palpation, not firm, Tenderness to palpation present (GI) (mild incisional site tenderness), no guarding and not rigid <Jackson Moya PA-C - Last Filed: 01/24/25 08:23> Percussion: Yes normal to percussion <Jackson Moya PA-C - Last Filed: 01/24/25 08:23> Neuro: General: patient oriented x3 <Jackson Moya PA-C - Last Filed: 01/24/25 08:23> Objective Data Active Medications Acetaminophen (Acetaminophen 325 Mg Tablet) 650 mg PO Q6H PRN PRN Reason: Pain, Mild 1-3,fever,headache Last Admin: 01/23/25 17:21 Dose: 650 mg Documented By: JOSETTE Albuterol Sulfate (Albuterol Sulfate (0.083%) 2.5 Mg/3 Ml Vial.Neb) 2.5 mg INHALE ONCE PRN PRN Reason: Shortness of Breath/Wheezing Last Admin: 01/21/25 16:53 Dose: 2.5 mg Documented By: DEVON Amlodipine Besylate (Amlodipine Besylate 5 Mg Tablet) 5 mg PO BEDTIME [facility]; Protocol Last Admin: 01/23/25 20:30 Dose: 5 mg Documented By: WILBUR Benztropine Mesylate (Benztropine Mesylate 1 Mg Tablet) 1 mg PO BEDTIME [facility] Last Admin: 01/23/25 20:31 Dose: 1 mg Documented By: WILBUR Docusate Sodium (Docusate Sodium 100 Mg Capsule) 100 mg PO BID [facility] Last Admin: 01/24/25 07:50 Dose: 100 mg Documented By: JOSETTE Ezetimibe (Ezetimibe 10 Mg Tablet) 10 mg PO DAILY [facility] Last Admin: 01/24/25 07:50 Dose: 10 mg Documented By: JOSETTE Ferrous Sulfate (Ferrous Sulfate 324 Mg Tablet.) 324 mg PO DAILY [facility] Last Admin: 01/24/25 07:50 Dose: 324 mg Documented By: JOSETTE Gabapentin (Gabapentin 300 Mg Capsule) 300 mg PO BID [facility] Last Admin: 01/24/25 07:50 Dose: 300 mg Documented By: JOSETTE Gemfibrozil (Gemfibrozil 600 Mg Tablet) 600 mg PO BID [facility] Last Admin: 01/24/25 07:50 Dose: 600 mg Documented By: JOSETTE Ampicillin Sodium/Sulbactam (Sodium 3 gm/ Sodium Chloride) 100 mls @ 200 mls/hr IV Q6H [facility] Last Admin: 01/24/25 07:54 Dose: 200 mls/hr Documented By: JOSETTE Ketorolac Tromethamine (Ketorolac Tromethamine 0.5% Op 5 Ml Drops) 1 drop EYE-BOTH BID [facility] Last Admin: 01/24/25 08:02 Dose: 1 drop Documented By: JOSETTE Levothyroxine Sodium (Levothyroxine Sodium 112 Mcg Tablet) 112 mcg PO DAILY@0600 [facility] Last Admin: 01/24/25 06:21 Dose: 112 mcg Documented By: WILBUR Melatonin (Melatonin 3 Mg Tablet) 6 mg PO BEDTIME PRN PRN Reason: Insomnia Last Admin: 01/23/25 20:31 Dose: 6 mg Documented By: WILBUR Metoclopramide HCl (Metoclopramide Hcl 10 Mg/2 Ml Vial) 10 mg IVPUSH Q6H PRN PRN Reason: Nausea and Vomiting Last Admin: 01/23/25 17:59 Dose: 10 mg Documented By: JOSETTE Naloxone HCl (Naloxone Hcl 0.4 Mg/Ml Vial) 0.04 mg IVPUSH Q5M PRN PRN Reason: Excessive sedation or RR < 8 Naltrexone HCl (Naltrexone Hcl 50 Mg Tablet) 50 mg PO DAILY [facility] Last Admin: 01/24/25 07:49 Dose: 50 mg Documented By: JOSETTE Nicotine (Nicotine 21 Mg Patch.Td24) 21 mg TRANSDERMA DAILY [facility] Last Admin: 01/24/25 07:50 Dose: 21 mg Documented By: JOSETTE Non-Formulary Medication (Dutasteride) 0.5 mg PO DAILY [facility] Non-Formulary Medication (Budesonide [Pulmicort Flexhaler]) 1 inhalation INHALE BID [facility] Nystatin (Nystatin Powder 15 Gm Bottle) 1 appl TOPICAL TID [facility]; Protocol Last Admin: 01/24/25 08:02 Dose: 1 appl Documented By: JOSETTE Omeprazole (Omeprazole 20 Mg Capsule.) 20 mg PO DAILY@0630 [facility] Last Admin: 01/24/25 06:21 Dose: 20 mg Documented By: WILBUR Ondansetron HCl (Ondansetron Hcl 4 Mg/2 Ml Vial) 4 mg IVPUSH Q8H PRN PRN Reason: Nausea and Vomiting Last Admin: 01/22/25 15:41 Dose: 4 mg Documented By: JAMI Oxycodone HCl (Oxycodone Hcl Immed Release 5 Mg Tablet) 5 mg PO Q4H PRN PRN Reason: Pain, Mild (Pain Scale 1-3) Last Admin: 01/22/25 21:12 Dose: 5 mg Documented By: WILBUR Oxycodone HCl (Oxycodone Hcl Immed Release 5 Mg Tablet) 10 mg PO Q4H PRN PRN Reason: Pain, Moderate(Pain Scale 4-6) Last Admin: 01/22/25 14:23 Dose: 10 mg Documented By: MERLIN Paroxetine HCl (Paroxetine Hcl 20 Mg Tablet) 20 mg PO DAILY [facility] Last Admin: 01/24/25 07:50 Dose: 20 mg Documented By: JOSETTE Quetiapine Fumarate (Quetiapine Fumarate 50 Mg Tablet) 50 mg PO BEDTIME [facility] Last Admin: 01/23/25 20:31 Dose: 50 mg Documented By: WILBUR Risperidone (Risperidone 2 Mg Tablet) 2 mg PO DAILY PRN PRN Reason: Anxiety Sodium Chloride (0.9 % Sodium Chloride Flush 3 Ml Syringe) 3 ml IVFLUSH QSHIFT [facility] Last Admin: 01/24/25 07:50 Dose: 3 ml Documented By: JOSETTE Tamsulosin HCl (Tamsulosin Hcl 0.4 Mg Capsule) 0.8 mg PO BEDTIME [facility] Last Admin: 01/23/25 20:30 Dose: 0.8 mg Documented By: WILBUR Vitamin D (Cholecalciferol (Vitamin D3) 25 Mcg Tablet) 50 mcg PO DAILY [facility] Last Admin: 01/24/25 07:50 Dose: 50 mcg Documented By: JOSETTE <Jackson Moya PA-C - Last Filed: 01/24/25 08:23> Labs CBC & Chem 7: 01/24/25 07:59 01/24/25 07:59 <Jackson Moya PA-C - Last Filed: 01/24/25 08:23> Procedures Date of Service Date of Service: 01/24/25 <Jackson Moya PA-C - Last Filed: 01/24/25 08:23> 01/24/25 <Jeff Harrell MD - Last Filed: 01/24/25 09:22> Progress Note: A&P Assessment and plan (1) S/P hernia repair: Status: Acute <Jackson Moya PA-C - Last Filed: 01/24/25 08:23> Assessment and Plan: Good pain control Good oral intake Passing flatus well Abdomen is soft and benign Incision clean Dressings changed due to some staining He says he feels well and thinks he is ready to be discharged We will discuss with hospitalist service in view of his O2 sats Seen and examined independently <Jeff Harrell MD - Last Filed: 01/24/25 09:22> (2) Aspiration pneumonia: Status: Acute <Jackson Moya PA-C - Last Filed: 01/24/25 08:23> Assessment and Plan: 64 year old male POD 3 s/p umbilical hernia repair. Abdomen is soft and benign. Patient continues to have some oozing from the incision site. The dressing was last changes yesterday at 14:00. Today was completely saturated. Dressing was removed. Incision site remains intact and is not suggestive of infection. A new dressing was applied at bedside. Patients pain is well controlled currently. Tolerating full diet. Denies nausea after meals. As discussed previously with hospitalist, patient okay for d/c when stable O2 sat as supplementary O2 is weaned. Recommend ambulation and spirometry Continue with diet. Continue pain regimen Dressing changes Qshift. <Jackson Moya PA-C - Last Filed: 01/24/25 08:23> Time Spent With Patient Time: Total time managing care of this patient today ____ minutes. <Jackson Moya PA-C - Last Filed: 01/24/25 08:23> Quality Stroke Does the patient have a stroke diagnosis?: No <Jackson Moya PA-C - Last Filed: 01/24/25 08:23> VTE Prior VTE?: No <Jackson Moya PA-C - Last Filed: 01/24/25 08:23> VTE Risk Level:: Surgical - low <Jackson Moya PA-C - Last Filed: 01/24/25 08:23> VTE Device Contraindication: N/A - Device Ordered <Jackson Moya PA-C - Last Filed: 01/24/25 08:23> VTE Drug Contraindication: Treatment Not Indicated <Jackson Moya PA-C - Last Filed: 01/24/25 08:23>
[2025-01-24 08:18] LABS: Hematocrit 47.9 % (42.0-52.0); Hemoglobin 16.3 g/dl (14.0-18.0); Mean Corpuscular Hemoglobin 28.5 pg (27.0-33.0); Mean Corpuscular Volume 83.7 fL (80.0-98.0); Mean Platelet Volume 9.5 fL (9.4-12.4); Platelet Count 146 X10*3/uL (160-400); Red Blood Count 5.72 X10*6/uL (4.60-5.80); Red Cell Distribution Width 15.4 % (11.0-16.0); White Blood Count 15.6 X10*3/uL (4.8-10.8)
[2025-01-24 08:32] LABS: Anion Gap 15 (12-20); Blood Urea Nitrogen 15 mg/dL (9-16); Calcium 10.1 mg/dL (8.4-10.2); Carbon Dioxide 27 mmol/L (22-29); Chloride 104 mmol/L (96-108); Creatinine Clr Calc Pharmacy 93.9; Estimated Glomerular Filt Rate > 60; Glucose Random 111 mg/dL (60-115); Potassium 3.7 mmol/L (3.3-5.1); Sodium 142 mmol/L (135-145)
--- NOTE | 2025-01-24 09:33 | P.PNIM_ITS ---
Subjective Subjective Date of Service: 01/24/25 Interval History: sob improved Physical Exam 2 Vital Signs: Vital Signs: Last Vital Signs Temp 98.1 F 01/24/25 07:02 Pulse 68 01/24/25 07:02 Resp 16 01/24/25 07:02 BP 165/79 H 01/24/25 07:02 Pulse Ox 92 01/24/25 07:02 O2 Del Method Nasal Cannula 01/24/25 07:02 O2 Flow Rate 1 01/24/25 07:02 BMI result Body Mass Index 32.6 Const: General: no acute distress Orientation/consciousness: patient oriented x3 Resp: Effort & Inspection: able to speak in complete sentences GI: Other: Incision site dressing completely saturated with a moderate clot. Incision is intact. No surrounding erythema, edema or purulent discharge. Inspection: No distended Palpation (GI): Soft to palpation, not firm, Tenderness to palpation present (GI) (mild incisional site tenderness), no guarding and not rigid Percussion: Yes normal to percussion Neuro: General: patient oriented x3 Objective Data Active Medications Acetaminophen (Acetaminophen 325 Mg Tablet) 650 mg PO Q6H PRN PRN Reason: Pain, Mild 1-3,fever,headache Last Admin: 01/23/25 17:21 Dose: 650 mg Documented By: JOSETTE Albuterol Sulfate (Albuterol Sulfate (0.083%) 2.5 Mg/3 Ml Vial.Neb) 2.5 mg INHALE ONCE PRN PRN Reason: Shortness of Breath/Wheezing Last Admin: 01/21/25 16:53 Dose: 2.5 mg Documented By: DEVON Amlodipine Besylate (Amlodipine Besylate 5 Mg Tablet) 5 mg PO BEDTIME [facility]; Protocol Last Admin: 01/23/25 20:30 Dose: 5 mg Documented By: WILBUR Benztropine Mesylate (Benztropine Mesylate 1 Mg Tablet) 1 mg PO BEDTIME [facility] Last Admin: 01/23/25 20:31 Dose: 1 mg Documented By: WILBUR Docusate Sodium (Docusate Sodium 100 Mg Capsule) 100 mg PO BID [facility] Last Admin: 01/24/25 07:50 Dose: 100 mg Documented By: JOSETTE Ezetimibe (Ezetimibe 10 Mg Tablet) 10 mg PO DAILY [facility] Last Admin: 01/24/25 07:50 Dose: 10 mg Documented By: JOSETTE Ferrous Sulfate (Ferrous Sulfate 324 Mg Tablet.) 324 mg PO DAILY [facility] Last Admin: 01/24/25 07:50 Dose: 324 mg Documented By: JOSETTE Gabapentin (Gabapentin 300 Mg Capsule) 300 mg PO BID [facility] Last Admin: 01/24/25 07:50 Dose: 300 mg Documented By: JOSETTE Gemfibrozil (Gemfibrozil 600 Mg Tablet) 600 mg PO BID [facility] Last Admin: 01/24/25 07:50 Dose: 600 mg Documented By: JOSETTE Ampicillin Sodium/Sulbactam (Sodium 3 gm/ Sodium Chloride) 100 mls @ 200 mls/hr IV Q6H [facility] Last Infusion: 01/24/25 08:25 Dose: Infused Documented By: JOSETTE Ketorolac Tromethamine (Ketorolac Tromethamine 0.5% Op 5 Ml Drops) 1 drop EYE- BOTH BID [facility] Last Admin: 01/24/25 08:02 Dose: 1 drop Documented By: JOSETTE Levothyroxine Sodium (Levothyroxine Sodium 112 Mcg Tablet) 112 mcg PO DAILY@0600 [facility] Last Admin: 01/24/25 06:21 Dose: 112 mcg Documented By: WILBUR Melatonin (Melatonin 3 Mg Tablet) 6 mg PO BEDTIME PRN PRN Reason: Insomnia Last Admin: 01/23/25 20:31 Dose: 6 mg Documented By: WILBUR Metoclopramide HCl (Metoclopramide Hcl 10 Mg/2 Ml Vial) 10 mg IVPUSH Q6H PRN PRN Reason: Nausea and Vomiting Last Admin: 01/23/25 17:59 Dose: 10 mg Documented By: JOSETTE Naloxone HCl (Naloxone Hcl 0.4 Mg/Ml Vial) 0.04 mg IVPUSH Q5M PRN PRN Reason: Excessive sedation or RR < 8 Naltrexone HCl (Naltrexone Hcl 50 Mg Tablet) 50 mg PO DAILY [facility] Last Admin: 01/24/25 07:49 Dose: 50 mg Documented By: JOSETTE Nicotine (Nicotine 21 Mg Patch.Td24) 21 mg TRANSDERMA DAILY [facility] Last Admin: 01/24/25 07:50 Dose: 21 mg Documented By: JOSETTE Non-Formulary Medication (Dutasteride) 0.5 mg PO DAILY [facility] Non-Formulary Medication (Budesonide [Pulmicort Flexhaler]) 1 inhalation INHALE BID [facility] Nystatin (Nystatin Powder 15 Gm Bottle) 1 appl TOPICAL TID [facility]; Protocol Last Admin: 01/24/25 08:02 Dose: 1 appl Documented By: JOSETTE Omeprazole (Omeprazole 20 Mg Capsule.Dr) 20 mg PO DAILY@0630 [facility] Last Admin: 01/24/25 06:21 Dose: 20 mg Documented By: WILBUR Ondansetron HCl (Ondansetron Hcl 4 Mg/2 Ml Vial) 4 mg IVPUSH Q8H PRN PRN Reason: Nausea and Vomiting Last Admin: 01/22/25 15:41 Dose: 4 mg Documented By: JAMI Oxycodone HCl (Oxycodone Hcl Immed Release 5 Mg Tablet) 5 mg PO Q4H PRN PRN Reason: Pain, Mild (Pain Scale 1-3) Last Admin: 01/22/25 21:12 Dose: 5 mg Documented By: WILBUR Oxycodone HCl (Oxycodone Hcl Immed Release 5 Mg Tablet) 10 mg PO Q4H PRN PRN Reason: Pain, Moderate(Pain Scale 4-6) Last Admin: 01/22/25 14:23 Dose: 10 mg Documented By: MERLIN Paroxetine HCl (Paroxetine Hcl 20 Mg Tablet) 20 mg PO DAILY [facility] Last Admin: 01/24/25 07:50 Dose: 20 mg Documented By: JOSETTE Quetiapine Fumarate (Quetiapine Fumarate 50 Mg Tablet) 50 mg PO BEDTIME [facility] Last Admin: 01/23/25 20:31 Dose: 50 mg Documented By: WILBUR Risperidone (Risperidone 2 Mg Tablet) 2 mg PO DAILY PRN PRN Reason: Anxiety Sodium Chloride (0.9 % Sodium Chloride Flush 3 Ml Syringe) 3 ml IVFLUSH QSHIFT [facility] Last Admin: 01/24/25 07:50 Dose: 3 ml Documented By: JOSETTE Tamsulosin HCl (Tamsulosin Hcl 0.4 Mg Capsule) 0.8 mg PO BEDTIME [facility] Last Admin: 01/23/25 20:30 Dose: 0.8 mg Documented By: WILBUR Vitamin D (Cholecalciferol (Vitamin D3) 25 Mcg Tablet) 50 mcg PO DAILY [facility] Last Admin: 01/24/25 07:50 Dose: 50 mcg Documented By: JOSETTE Labs 01/24/25 07:59 01/24/25 07:59 Labs: Laboratory Results - last 24 hr 01/24/25 07:59 MCV 83.7 MCH 28.5 MCHC 34.0 RDW 15.4 Plt Count 146 L MPV 9.5 Absolute Nucleated RBC 0.000 Nucleated RBC % (auto) 0.0 Anion Gap 15 Estim Creat Clear Calc 93.9 Estimated GFR > 60 Random Glucose 111 Calcium 10.1 Assessment and Plan (1) Schizo-affective schizophrenia: Status: Acute Plan 58M PMH HLD, alcoholic steatohepatitis, copd, schizophrenia, CLL, HTN, GERD, bph, hypothyroid, admitted for elective umbilical hernia repair, course complicated by postop hypoxia and hypernatremia Acute hypoxic respiratory failure secondary to aspiration pneumonia now on room air, can discharge on 5 days of augmentin Acute hypernatremia resolved after d5w, now stable COPD Continue inhalers History of alcohol dependence Reports 7 year sobriety Schizophrenia Continue Risperdal, Paxil, amantadine, gabapentin, Seroquel Hypertension Amlodipine, pain control Leukocytosis due to CLL not sepsis Hypothyroid Continue levothyroxine BPH Flomax patient appears medically stable, will sign off for now, please recall if needed Quality Stroke Does the patient have a stroke diagnosis?: No VTE Prior VTE?: No VTE Risk Level:: Surgical - low VTE Device Contraindication: N/A - Device Ordered VTE Drug Contraindication: Treatment Not Indicated
[2025-01-24 10:20] VITALS: O2SAT 90
--- NOTE | 2025-01-24 10:32 | PM.EVENT ---
Event Note Date of Service: 01/24/25 Event Note: Seen on follow-up rounds He continues to feel well O2 sats now maintained above 90 on room air I have discussed this case with the hospitalist service Okay to DC home with oral Augmentin I explained this to the patient and discussed with him postop instructions I will see him in the office in about 2 weeks Time Spent With Patient Time: Total time managing care of this patient today ____ minutes.
[2025-01-24 11:08] VITALS: BMI 32.6
[2025-01-24 11:58] VITALS: BP 140/74; PULSE 66; RESP 16; TEMP 36.4; O2SAT 90
--- NOTE | 2025-01-24 12:31 | MHC.CM.PN ---
pt dcd back to [facility] ,[facility] transport
--- NOTE | 2025-01-24 13:12 | MHC.CM.PN ---
pt active with [facility] dc summary faxed
--- NOTE | 2025-01-24 13:36 | P.DS_ITS ---
DS: Providers Provider Date of Service: 01/24/25 Date of admission: 01/22/25 09:41 Date of discharge: 01/24/25 Primary care physician: Binh Lim MD Admitting clinician: Jeff Harrell Attending physician on admission: Jeff Harrell Consults: 01/21/25 18:29 Consult to Hospitalist Stat Comment: Consulting Provider: [facility] Hospitalists Reason For Exam: desaturations post op 01/22/25 01:41 Consult to Wound Care Routine Reason for consultation: redness to buttocks and fungal rash to groin Attending physician on discharge: Jeff Harrell Discharging clinician: Jeff Harrell DS: Diagnosis Discharge Diagnosis (1) Schizo-affective schizophrenia: Status: Acute (2) S/P hernia repair: Status: Acute DS: Summary Hospital Course Hospital Course: Admission HPI: 63-year-old male with multiple medical problems including schizoaffective disorder, history of chronic lymphocytic leukemia, learning disability with mental retardation, osteoarthritis, chronic back pain, BPH, COPD, here because of marginal O2 sats after umbilical hernia repair with mesh yesterday afternoon. He was in the recovery room and was noted to require some O2 supplementation via nasal cannula because of O2 sats that dropped to 88 on room air. He had a chest x-ray done which suggested a pneumonia in the left lower lobe. He lives alone but does have [facility] supervise him. He has a [facility] during the day as well. He had been admitted last June 2024 because of lithium toxicity with altered mental status. He was in the ICU for about 3 days around that time. Currently he says he is ready to be discharged as he lives alone and has very limited level of activity. He also had urinary retention and has a Martinez catheter now. Hosptial Course: POD1 s/p umbilical hernia repair patient was improving. He experienced some nausea which was managed with antiemetics. His abdominal exam was benign aside from incisional site pain, managed well with medications. he was still requiring supplemental O2 therapy. Together with the hospitalist team it was decided that the patient should remain admitted for management of pneumonia of the left lower lobe. Martinez catheter was removed on POD2.. He was voiding urine adequately. He began ambulating in his room and his pain was well controlled. He was advanced to full diet and tolerated this well. He was passing flatus and had not passed a bowel movement. He had some oozing from the incision site, however the site remained intact and not suggestive of infection. The patients supplemental O2 requirements continued to decrease and after discussion with the hospitalist team and the attending physician, it was decided that the patient is able to be discharged. On the day of discharge the patients abdominal exam was benign aside from incisional site pain. The site appears clean and intact with some mild oozi ng. His pain was well controlled and he was tolerating full diet. He is voiding, passing flatus and ambulating as tolerated. Patient was stable at the time of discharge on a course of oral augmentin for 5 days. Status at Discharge Functional status at discharge: independent ambulation Overall status at discharge: patient is progressing back to baseline Time Attestation Discharge Coordination Time (in mins): 30 Quality: Safe Use of Opioids Does Pt have an Active Cancer Diagnosis on the Problem List?: No Quality: Stroke Does the patient have a stroke diagnosis?: No Physical Exam Vital Signs: Vital Signs: Last Vital Signs Temp 97.5 F 01/24/25 11:58 Pulse 66 01/24/25 11:58 Resp 16 01/24/25 11:58 BP 140/74 H 01/24/25 11:58 Pulse Ox 90 L 01/24/25 11:58 O2 Del Method Room Air 01/24/25 11:58 O2 Flow Rate 1 01/24/25 07:02 BMI result Body Mass Index 32.6 Const: General: comfortable and no acute distress Orientation/consciousness: patient oriented x3 Resp: Effort & Inspection: normal respiratory effort and able to speak in complete sentences GI: Other: Incision site is clean and intact. No surrounding erythema, edema, warmth or puruletn discharge. Mild oozing from incision site. New dressing applied Inspection: No Abdominal wall edema and No distended Palpation (GI): Soft to palpation, not firm, Tenderness to palpation present (GI) (mild incisional site tenderness), no guarding and not rigid Percussion: Yes normal to percussion Neuro: General: patient oriented x3 DS: Data Data Completed and Pending Completed studies during hospitalization [Text1]: 01/21/25 15:10 Surgical [PTH] Routine Diagnosis: Hernia sac, herniorrhaphy: Fibromembranous and vascular adipose tissue with mild chronic inflammation, congestion, and fibrosis, compatible with hernia Procedures Insertion of Endotracheal Airway into Trachea, Via Natural or Artificial Opening (06/16/24) Introduction of Vasopressor into Peripheral Vein, Percutaneous Approach (06/16/24) Respiratory Ventilation, 24-96 Consecutive Hours (06/16/24) Labs on day of discharge: Laboratory Results - last 24 hr 01/23/25 01/24/25 17:52 07:59 WBC 15.6 H RBC 5.72 Hgb 16.3 Hct 47.9 MCV 83.7 MCH 28.5 MCHC 34.0 RDW 15.4 Plt Count 146 L MPV 9.5 Absolute Nucleated RBC 0.000 Nucleated RBC % (auto) 0.0 Sodium 142 Potassium 3.7 Chloride 104 Carbon Dioxide 27 Anion Gap 15 BUN 15 Creatinine 0.93 Estim Creat Clear Calc 93.9 Estimated GFR > 60 Random Glucose 111 Calcium 10.1 Troponin I High Sens 10.4 D Discharge Plan Discharge Anticipated Discharge Date/Time: 01/24/25 10:08 Patient Disposition: Home Health Service Discharge Diagnosis: Status post repair of umbilical hernia, aspiration pneumonia Referrals: vicky [Other] - 1 Week Binh Lim MD [Primary Care Provider] - 1 Week Jeff Harrell MD [Physician] - 2 Weeks Discharge Medications: New ibuprofen 600 mg tablet 600 mg PO Q6H PRN (Reason: pain) Qty: 20 0RF oxycodone 5 mg tablet 5 mg PO Q4H PRN (Reason: pain) Qty: 20 0RF Rx Instructions: Partial Fill upon patient request. amoxicillin-pot clavulanate 875-125 mg tablet 1 tab PO BID Qty: 10 0RF Continued gemfibrozil [Lopid] 600 mg tablet 600 mg PO BID 90 Days Qty: 180 3RF cholecalciferol (vitamin D3) 50 mcg (2,000 unit) capsule 50 mcg PO DAILY 90 Days Qty: 90 3RF ferrous sulfate 325 mg (65 mg iron) Tablet 325 mg PO DAILY Qty: 90 3RF ezetimibe [Zetia] 10 mg tablet 10 mg PO DAILY Qty: 90 0RF levothyroxine 112 mcg tablet 112 mcg PO DAILY@0600 Qty: 90 0RF nicotine [Nicoderm CQ] 21 mg/24 hr patch 24 hour 1 patch transdermal DAILY Qty: 28 0RF omega 8-bjj-yqd-fish oil 300-1,000 mg capsule 1 cap PO BID 90 Days Qty: 180 1RF quetiapine [Seroquel] 50 mg Tablet 50 mg PO BEDTIME melatonin 5 mg Tablet 5 mg PO BEDTIME PRN (Reason: Insomnia) naltrexone 50 mg tablet 50 mg PO DAILY amlodipine 5 mg tablet 5 mg PO BEDTIME omeprazole 20 mg capsule,delayed release(DR/EC) 20 mg PO DAILY@0630 risperidone microspheres 50 mg/2 mL suspension,extended rel recon 50 mg IM Q2W Qty: 1 0RF Rx Instructions: Last dose 06/27/24 paroxetine HCl [Paxil] 20 mg tablet 20 mg PO DAILY Qty: 30 0RF ketorolac 0.5 % drops 1 drp ophthalmic (eye) BID Rx Instructions: BOTH EYES risperidone [Risperdal] 2 mg Tablet 2 mg PO DAILY PRN (Reason: Anxiety) benztropine 1 mg tablet 1 mg PO BEDTIME gabapentin 300 mg capsule 300 mg PO BID Pulmicort Flexhaler 90 mcg/actuation aerosol powdr breath activated 1 inh INHALATION BID acetaminophen 325 mg tablet 650 mg PO DAILY PRN (Reason: pain) B complex-vitamin C-folic acid 400 mcg tablet extended release 1 tab PO DAILY tamsulosin [Flomax] 0.4 mg capsule 0.8 mg PO BEDTIME 90 Days Qty: 180 3RF dutasteride 0.5 mg capsule 0.5 mg PO DAILY 90 Days Qty: 90 1RF Discharge Orders: Discharge Order (Routine); Ordered 01/24/25 Ordered By: Jeff Harrell Diet: Advance to usual diet Activity on Discharge: No heavy lifting Stand Alone Forms: Patient Portal Discharge page Print Language: Kinyarwanda Activity Restrictions/Additional Instructions: If the incision area is tender, you may apply an ice pack for short intervals (No more than 20 minutes on, followed by at least 20 minutes off). Do not apply heat. Do not use creams, lotions, or topical antibiotics unless instructed to do so by your surgeon. These can cause infection or allergic reaction. No lifting more than 20 lbs Okay to shower Okay to change dressings with gauze or Band-Aid after 24 hours No strenuous activities Call the office for follow-up in 2 weeks - with Dr. Harrell Call Your Doctor If: -Your temperature exceeds 101.5? F -You experience excessive pain or swelling -You have an unexpected reaction to medication -You have excessive bleeding -You experience continued vomiting/nausea -Your incision begins to separate -Your incision shows signs of infection such as increased redness, swelling, excessive pain, drainage (light blood or clear fluid is normal) or heat Care Plan Goals: Returned to baseline level of health Pain management Health Concerns: Postop pain Recent aspiration pneumonia Plan of Treatment: Oral antibiotics No lifting, no strenuous activities Assessment: Doing well Discharge Date/Time: 01/24/25 13:00
== END 2025-01-24 13:00 | disposition home health service (06) | DRG 353 ==
LOC: HO.SSS 09:46 → HO.S3 09:46
PROVIDERS: Internal Medicine; Physician Assistant; Admitting Provider Surgery; PCP Internal Medicine; Visit Provider Surgery
PROC: 0WUF0JZ Supplement Abdominal Wall with Synthetic Substitute, Open Approach (ICD-10-PCS; principal; 2025-01-21 14:00)
DX: K42.9 Umbilical hernia without obstruction or gangrene (principal); J69.0 Pneumonitis due to inhalation of food and vomit; J96.01 Acute respiratory failure with hypoxia; E87.0 Hyperosmolality and hypernatremia; C91.10 Chronic lymphocytic leukemia of B-cell type not having achieved remission; N40.0 Benign prostatic hyperplasia without lower urinary tract symptoms; F17.210 Nicotine dependence, cigarettes, uncomplicated; Z71.6 Tobacco abuse counseling; K70.0 Alcoholic fatty liver; F10.21 Alcohol dependence, in remission; E78.5 Hyperlipidemia, unspecified; E03.9 Hypothyroidism, unspecified; J44.9 Chronic obstructive pulmonary disease, unspecified; R33.9 Retention of urine, unspecified; I10 Essential (primary) hypertension; K21.9 Gastro-esophageal reflux disease without esophagitis; Z79.890 Hormone replacement therapy; Z79.899 Other long term (current) drug therapy
CPT/HCPCS: 36415; 71045; 80048; 80053; 81001; 83036; 83880; 83935; 84300; 84484; 85025; 85027; 88302; 93005; 94640; C1781; J0131; J0295; J0330; J0690; J1100; J1171; J1885; J1920; J2003; J2405; J2704; J2765; J2795; J3010; J7120

== ENCOUNTER → 2025-01-22 09:41 | Outpatient (BNV) | payer MEDICARE, MEDICAID, SELFPAY | PROVIDERS: Admitting Provider Surgery; PCP Internal Medicine; Visit Provider Surgery | DX: J69.0 Pneumonitis due to inhalation of food and vomit (principal); Z98.890 Other specified postprocedural states; Z87.19 Personal history of other diseases of the digestive system | CPT/HCPCS: 99232; 99499 ==

== ENCOUNTER 2025-01-30 12:55 | Outpatient (AMB) | payer MEDICARE, MEDICAID, SELFPAY ==
--- NOTE | 2025-01-30 13:03 | MHC.OFFVIS ---
Vital Signs 01/30/25 13:09 Height 5 ft 10 in Weight 232 lb BMI 33.3 BP 142/63 H Blood Pressure Location Rt brachial Position Sitting Pulse 69 Intake Visit Reasons: s/p umbilical hernia poss mesh Intake Note: Patient here s/p umbilical hernia with Phasix umbilical mesh. Reports incision healing well. Patient c/o: VNA changed dressing but is due to come back tomorrow to re-dress wound. Only taking Tylenol as needed. Last seen by Jackson Summers PA-C 01-22-2025 Surgery: 01-21-2025 Color Paste Mixer Required: No Accompanied by: [facility] child welfare caseworker Jennifer Allergies atorvastatin [From LIPITOR] Allergy (Unknown, Verified 01/30/25 13:11) HIGH LFTS HPI HPI s/p umbilical hernia poss mesh: Details: He underwent repair of an umbilical hernia with mesh last January 21, 2025. He tolerated the procedure well but was admitted for 3 days because of postop pneumonia and required some O2 supplementation He has been doing well since discharge he says. He does not need any O2 supplementation at home. He does have baseline shortness of breath. He has good GI functions. He said his pain level is good. 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 Alcoholic liver disease Depression, major, recurrent Thrombocytosis Obesity BPH (benign prostatic hyperplasia) COPD (chronic obstructive pulmonary disease) Lipid disorder Chronic GERD Hypothyroidism Surgical History History of left cataract surgery History of esophagogastroduodenoscopy (EGD) History of colonoscopy History of basal cell carcinoma (BCC) excision History of surgery History of hernia repair Family History Father HTN (hypertension) CVD (cardiovascular disease) Sister AIDS Maternal Grandfather Unknown family medical history Maternal Grandmother Unknown family medical history Paternal Grandfather Unknown family medical history Paternal Grandmother Unknown family medical history Sister No problems noted. Sister No problems noted. Sister No problems noted. Social History Household Members: None Housing: Apartment Are you a primary child care nurse to a significant other at home: No Do you presently have visiting nurse or other home services: Yes ([facility] program per pt) Alcohol intake: former Comment: restraints Patient Tobacco Use Status: Current everyday Tobacco user Tobacco use type: Cigarette Cigarette Packs Per Day: 1 Cigarettes Per Day: 20.0 e-Cigarette/Vaping Use: Never Used Substance Use Type: Marijuana Advance Directives Date on File: 08/16/22 service: No Current occupational status: disabled Cognitive needs: No Hearing needs: No Vision needs: Yes Review of Systems Const Denies chills and Denies fever(s) Card Denies chest pain Resp Reports cough GI Denies abdominal pain Physical Exam Vital Signs: Last Vital Signs Pulse 69 01/30/25 13:09 BP 142/63 H 01/30/25 13:09 BMI result Body Mass Index 33.3 Const Other: Frail looking, walking with a walker General: comfortable and no acute distress Resp Effort & Inspection: normal respiratory effort Cardio Rate: regular rate GI Other: Umbilical hernia repair site dry, not infected, intact without any signs of recurrence or infection Palpation (GI): Soft to palpation, not firm, nontender and no guarding Assessment & Plan Assessment & Plan (1) Umbilical hernia without obstruction and without gangrene: Code(s): K42.9 - Umbilical hernia without obstruction or gangrene Category: Medical Plan: Status post repair with mesh. He is doing very well. The repair site is intact and well healed. He was admitted for 3 days postop because of a pneumonia but he seemed to doing well since discharge I reiterated to him that he should avoid lifting anything more than 20 lb for a full month. He can otherwise follow up on a p.r.n. basis. Coding Level of Care Code Global (60556) Diagnoses Umbilical hernia without obstruction and without gangrene K42.9
[2025-01-30 13:09] VITALS: BP 142/63; PULSE 69; BMI 33.3
--- OUTSIDE RECORDS SUMMARY | 2025-01-30 13:34 | XMS_ITS | Patient Health Record ---
Author Organization [facility] Address [address] [place] [address] Care Team Providers Care Laundry Presser Name Role Phone Raphael GEE, [facility] Primary Care Provider Jimy Pandya Unavailable [phone] Tata Osorio Unavailable Unavailable Allergies Allergen (clinical [...] 1 Orally QD Active Vitamin D-3 Active Clifton 3 1000 MG 1 capsule Orally Onc e a day Active [place] Carbonate ER 300 MG 3 tablet at [...] Problem Status W/U Status Risk Notes Problem 854277867 Gastroesophageal reflux disease without esophagitis (K21.9) Active confirmed Problem 174250621 Iron deficiency anemia due to chronic blood loss (D50.0) Active confirmed Problem 80824944 Pharyngoesophage al dysphagia (R13.14) Active confirmed Problem 62300147 Iron deficiency anemia, unspecified iron deficiency anemia type (D50.9) Active confirmed Problem 266368418 Anemia, unspecif ied type (D64.9) Active confirmed Problem 678573561 Gastroesophageal reflux disease with esophagitis without hemorrhage [...] OF [place] [address] [place] [address] [id number] CLIFKATHLEEN PRADO Self - patient is the insured MEDICAID OF [facility] [address] [place] [address] [id number] KATHLEEN DESIR Self - patient is the insured Medical (General) History Medical History History ICD Code Denies OH,DM,CVA,renal disease Chronic dysphagia--he had a normal upper [...]
== END 2025-01-30 13:33 | disposition home or self-care (01) ==
LOC: HO.HGS 12:56
PROVIDERS: PCP Internal Medicine; Visit Provider Surgery
DX: K42.9 Umbilical hernia without obstruction or gangrene (principal)
CPT/HCPCS: 99212

== ENCOUNTER → 2025-01-30 12:55 | Outpatient (BNVA) | payer MEDICARE, MEDICAID, SELFPAY | PROVIDERS: PCP Internal Medicine; Visit Provider Surgery | DX: Z09 Encounter for follow-up examination after completed treatment for conditions other than malignant neoplasm (principal); Z87.19 Personal history of other diseases of the digestive system; Z98.890 Other specified postprocedural states | CPT/HCPCS: 99212 ==

== ENCOUNTER → 2025-02-15 23:59 | Outpatient (BNV) | payer MEDICARE, MEDICAID, SELFPAY | PROVIDERS: PCP Internal Medicine; Visit Provider Internal Medicine | DX: F25.9 Schizoaffective disorder, unspecified (principal); E21.3 Hyperparathyroidism, unspecified | CPT/HCPCS: G0179 ==

== ENCOUNTER 2025-03-11 09:45 | Outpatient (AMB) | payer MEDICARE, MEDICAID, SELFPAY ==
--- NOTE | 2025-03-11 09:49 | MHC.OFFVIS ---
Vital Signs 03/11/25 09:57 Height 5 ft 10 in Weight 229 lb BMI 32.9 BP 134/64 Blood Pressure Location Rt brachial Position Sitting Pulse 81 Intake Visit Reasons: pain in umbilical hernia site Intake Note: Patient here s/p umbilical hernia repair. Patient c/o: experiencing pain and discomfort on and off on abdomen since surgery. Surgery: 01-21-2025 Marine Equipment Research Engineer Required: No Accompanied by: [facility] ed case manager Jennifer Allergies atorvastatin (From LIPITOR) Allergy (Unknown, Verified 03/11/25 09:56) HIGH LFTS HPI HPI pain in umbilical hernia site: Details: Patient reports for intermittent pain around umbilical hernia repair site and for clearance from his psych provider to make changes to his medication.. States that this comes and goes. He reports that about a week and a half ago he had some kind of GI bug where he felt nauseous and had some loose stools. He denies any current nausea or vomiting. Denies fever, chills. He reports currently his appetite and bowel function are at baseline. He is ambulating using a walker. 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 Alcoholic liver disease Depression, major, recurrent Thrombocytosis Obesity BPH (benign prostatic hyperplasia) COPD (chronic obstructive pulmonary disease) Lipid disorder Chronic GERD Hypothyroidism Surgical History History of left cataract surgery History of esophagogastroduodenoscopy (EGD) History of colonoscopy History of basal cell carcinoma (BCC) excision History of surgery History of hernia repair Family History Father HTN (hypertension) CVD (cardiovascular disease) Sister AIDS Maternal Grandfather Unknown family medical history Maternal Grandmother Unknown family medical history Paternal Grandfather Unknown family medical history Paternal Grandmother Unknown family medical history Sister No problems noted. Sister No problems noted. Sister No problems noted. Social History Household Members: None Housing: Apartment Are you a primary pediatric care coordinator to a significant other at home: No Do you presently have visiting nurse or other home services: Yes ([facility] program per pt) Alcohol intake: former Comment: restraints Patient Tobacco Use Status: Current everyday Tobacco user Tobacco use type: Cigarette Cigarette Packs Per Day: 1 Cigarettes Per Day: 20.0 e-Cigarette/Vaping Use: Never Used Substance Use Type: Marijuana Advance Directives Date on File: 08/16/22 service: No Current occupational status: disabled Cognitive needs: No Hearing needs: No Vision needs: Yes Review of Systems Const Denies chills and Denies fever(s) Card Denies dyspnea Resp Denies dyspnea GI Reports abdominal pain (At incision site) Physical Exam Vital Signs: Last Vital Signs Pulse 81 03/11/25 09:57 BP 134/64 03/11/25 09:57 BMI result Body Mass Index 32.9 Const General: comfortable and no acute distress Orientation/consciousness: patient oriented x3 Resp Effort & Inspection: normal respiratory effort and able to speak in complete sentences GI Other: Protuberant abdomen Umbilical hernia incision site appears to be healing well, no erythema, no palpable fluid collection, no discharge No evidence of hernia recurrence with increased abdominal pressure Mildly tender surrounding the umbilicus Inspection: No distended Palpation (GI): Soft to palpation, not firm, Tenderness to palpation present (GI) (Mild surrounding umbilicus), no guarding and not rigid Neuro General: patient oriented x3 Assessment & Plan Assessment & Plan (1) S/P hernia repair: Code(s): Z98.890 - Other specified postprocedural states; Z87.19 - Personal history of other diseases of the digestive system Category: Surgical Plan 64-year-old male status post umbilical hernia repair with mesh on 01/21/2025 presenting to the office for follow-up regarding incision site pain and requesting clearance from psych provider to make changes for medications. Patient is experiencing intermittent pain around the incision site. Bowel function and appetite are at baseline. His abdominal exam is soft and benign. He does have some mild tenderness surrounding the incision site. The incision site does look to be healing well no current concern for infection, and there was no recurrence of the hernia on exam. At this point I believe that the patient's pain is appropriate for his current stage of postop. He can use [id number] ibuprofen or Tylenol for pain as needed. In regards to changing psych medications, I have no restrictions at this point. Additionally this patient may resume activity as tolerated, I recommended he slowly resume his baseline level of activity, however there are no further lifting restrictions. Patient can follow-up as needed for future concerns. Patient agreeable to this plan Coding Level of Care Code Est Pt Level 3 (25082) Diagnoses S/P hernia repair Z98.890; Z87.19
[2025-03-11 09:57] VITALS: BP 134/64; PULSE 81; BMI 32.9
--- OUTSIDE RECORDS SUMMARY | 2025-03-11 10:38 | XMS_ITS | Patient Health Record ---
Author Organization [facility] Address [address] [place] [address] Care Team Providers Care Tax Compliance Officer Name Role Phone Raphael GEE, [facility] Primary [facility] Provider Eva Aguayo Unavailable [phone] Allergies Allergen (clinical drug ingredient) Drug/Non Drug Allergy documented on EMR Reaction Allergy Type Onset Date Status atorvastatin Lipitor increases LFTs Drug Allergy Active Reason For Referral No Information Medications Medication SIG (Take, Route, Frequency, Duration) Notes Start Date End Date Status Vitamin D3 Active Flovent HFA Active Zetia 10 MG 1 tablet Orally Once a day 11/19/2024 Active Gocovri Active Levoxyl 112 MCG 1 tablet in the morn ing on an empty stomach Orally Once a day Active Lopid 600 MG 1 tablet 30 minutes before morning and evening meals Orally Twice a day Active RisperDAL Consta 50 MG as directed Intramuscular 0 11/19/2024 Active Tylenol Active Flomax Active ReVia Active Avodart 0.5 MG 1 capsule Orally Once a day Active Ferrous Sulfate 325 (65 Fe) MG 1 tablet Orally Three times a Week 11/19/2024 Active Melatonin 5 MG 1 tablet in the even ing Orally Once a day 11/19/2024 Active Norvasc 5 MG 1 tablet Orally Once a day 11/19/2024 Active [place] 3 1000 MG 1 capsule Orally Thr ee times a day 11/19/2024 Active PriLOSEC Active Social History Tobacco Use: Social History Observation Description Date Details (start date - stop date) Current Smoker 01/16/1985 - NA Tobacco use other than smoking: Question Answer Notes Are you an other tobacco user? No Tobacco Control (Standard) Question Answer Notes Tobacco use: Current every day smoker When did you start smoking? 01/16/1985 Additional Findings: Tobacco user Moderate cigar ette smoker (10-19 cigs/day) Vital Signs Blood pressure diastolic 80 mm Hg 02/12/2025 Height 5ft9in in 02/12/2025 Blood pressure systolic 171 mm Hg 02/12/2025 Weight 225 lbs 02/12/2025 BMI 33.22 kg/m2 02/12/2025 Encounters Encounter Location Date Provider Diagnosis [facility] [address] [address] 02/12/2025 Eva Adrian Onychomycosis B35.1 ; Other hammer toe(s) (acquired), right foot M20.41 ; Pain in right toe(s) M79.674 ; Pain in left toe(s) M79.675 ; Right foot pain M79.671 ; Plantar wart B07.0 and Other hammer toe(s) (acquired), left foot M20.42 Assessments Encounter Date Diagnosis (ICD Code) Assessment Notes Treatment Notes Treatment Clinical Notes Section Notes 02/12/2025 Other hammer toe(s) (acquired), right foot (ICD-10 - M20.41) 02/12/2025 Onychomycosis (ICD-10 - B35.1) 02/12/2025 Pain in right toe(s) (ICD-10 - M79.674) 02/12/2025 Pain in left toe(s) (ICD-10 - M79.675) 02/12/2025 Right foot pain (ICD-10 - M79.671) 02/12/2025 Plantar wart (ICD-10 - B07.0) 02/12/2025 Other hammer toe(s) (acquired), left foot (ICD-10 - M20.42) Plan Of Treatment Next Appt Details Provider Name:Evaleonard grullon, 04/25/2025 12:00:00 PM, [address] [place] [address], [phone], Insurance Providers Payer Name Payer Address Payer Phone Subscriber Number Group Number Insured Name Patient Relationship to Insured Coverage Start Date Coverage End Date Medicare National Govt Svcs Inc [address] [place] [address] [id number] Robb Rene Self - patient is the insured 0 Medical (General) History Medical History History ICD Code Anxiety Arthritis Back,Hip,and Knee pain CAD (Cholesterol) Cataracts Depression Hiatal hernia High Blood Pressure Psychiatric disorder Reflux ( GERD) Sinusitis Sickle cell disease Surgical History Surgery Date(Month/Year) hernia surgery 02/09 cataract surgery face surgery
== END 2025-03-11 10:12 | disposition home or self-care (01) ==
LOC: HO.HGS 09:46
PROVIDERS: PCP Internal Medicine
DX: Z98.890 Other specified postprocedural states (principal); Z87.19 Personal history of other diseases of the digestive system
CPT/HCPCS: 99213

== ENCOUNTER → 2025-03-11 09:45 | Outpatient (BNVA) | payer MEDICARE, MEDICAID, SELFPAY | PROVIDERS: PCP Internal Medicine | DX: R10.33 Periumbilical pain (principal); Z98.890 Other specified postprocedural states; Z87.19 Personal history of other diseases of the digestive system | CPT/HCPCS: 99212 ==

== ENCOUNTER 2025-04-09 10:02 | Outpatient (AMB) | payer MEDICARE, MEDICAID, SELFPAY ==
[2025-04-09 10:05] VITALS: BP 136/76; PULSE 73; O2SAT 94; BMI 32.6
--- NOTE | 2025-04-09 10:05 | A.OFFPC_ITS ---
Vital Signs 04/09/25 10:05 Height 5 ft 10 in Weight 227 lb BMI 32.6 BP 136/76 Blood Pressure Location Lt brachial Position Sitting Pulse 73 Pulse Source Pulse Oximeter Pulse Oximetry (%) 94 Intake Visit Reasons: knee pain Curriculum Development Coordinator Required: No Allergies atorvastatin (From LIPITOR) Allergy (Unknown, Verified 03/11/25 09:56) HIGH LFTS Medication List - Last Reconciled 04/09/25 by Binh Lim MD acetaminophen 650 mg PO DAILY PRN amlodipine 5 mg PO DAILY B complex-vitamin C-folic acid 400 mcg ER 1 tab PO DAILY benztropine 1 mg PO BEDTIME budesonide 90 mcg/actuation (Pulmicort Flexhaler) 1 inh PO BID 30 days cholecalciferol (vitamin D3) 50 mcg PO DAILY 90 days dutasteride 0.5 mg PO DAILY 90 days ezetimibe (Zetia) 10 mg PO DAILY ferrous sulfate 325 mg PO DAILY gabapentin 300 mg PO BID gemfibrozil (Lopid) 600 mg PO BID 90 days ibuprofen 600 mg PO Q6H PRN ketorolac 0.5% 1 drp ophthalmic (eye) BID levothyroxine 112 mcg PO DAILY@0600 melatonin 5 mg PO BEDTIME PRN naltrexone 50 mg PO DAILY nicotine (Nicoderm CQ) 1 patch transdermal DAILY omega 8-cmi-fwc-fish oil 300 mg (120 mg- 180mg)-1,000 mg 1 cap PO BID omega 7-fnk-qzq-fish oil 300-1,000 mg 1 cap PO BID 90 days omeprazole 20 mg PO DAILY@0630 paroxetine HCl (Paxil) 20 mg PO DAILY quetiapine (Seroquel) 50 mg PO BEDTIME risperidone (Risperdal) 2 mg PO DAILY PRN risperidone microspheres ER 50 mg (2 mL) IM Q2W tamsulosin (Flomax) 0.8 mg (2 x 0.4 mg) PO BEDTIME 90 days tramadol 50 mg PO Q8H PRN vitamin B complex 1 cap PO QAM Tobacco use date assessed: 12/20/24 Fall risk assessment: No Falls in past year Last assessed Fall Risk: 04/09/25 Dental Screening Dental Screen Date: 12/20/24 HPI knee pain HPI Details - The patient is a 63-year-old male with a history of psychiatric illness, hypertension, BPH, rash , hypothyroidism, lipid disorder, hypertension , like umbilical hernia Came in with chief complaint of left knee pain which is chronic but is getting worse - The patient has experienced knee pain for approximately 15 years, with symptom s initially starting after an unspecified event. - Pain has progressively worsened over t salvatore, with increased difficulty in walking noted by the patient. - Left knee shows significant swelling a nd the patient reports having seen a physician previously. - The patient reports difficulty maintai katey balance and uses a walker - There are noted symptoms of clicking a nd instability reported with movement of the knee. Medical History: - Left knee osteoarthritis reported by t he patient. Social History: - The patient uses a walker for mobility assistance due to leg weakness. Problem List - Bilateral Knee Osteoarthritis Patient Instructions - Get an x-ray of the knee done at the [facility] before leaving. - Follow-up with the orthopedist post-x- ray for further evaluation. Review of Systems - General: No fever no chills - Neurological: No headaches no dizziness - Ear nose throat: No sore throat no hearing difficulty no ear pain - Cardiovascular: No syncope, no chest pain, no palpitations - Gastrointestinal: No nausea vomiting or diarrhea Physical Exam General: No acute distress HEENT: No acute findings Neck: Supple Respiratory system: Able to talk in full sentences, no audible wheeze Cardiovascular: S1-S2 regular in rate and rhythm Gastrointestinal: No pain Extremities: Left knee swollen, difficulty walking, instability noted ENDBAND SIZER: Alert awake oriented x3 Skin: Normal turgor [facility] Medical History Aortic stenosis Hx of transfusion of packed red blood cells Cough Sleep apnea Murmur Umbilical hernia History of basal cell carcinoma (BCC) Nicotine dependence, cigarettes, uncomplicated Schizo-affective schizophrenia CLL (chronic lymphocytic leukemia) Hypertension, essential Hypercalcemia due to lithium Non-toxic multinodular goiter Vitamin D deficiency 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 Alcoholic liver disease Depression, major, recurrent Thrombocytosis Obesity BPH (benign prostatic hyperplasia) COPD (chronic obstructive pulmonary disease) Lipid disorder Chronic GERD Hypothyroidism Surgical History History of left cataract surgery History of esophagogastroduodenoscopy (EGD) History of colonoscopy History of basal cell carcinoma (BCC) excision History of surgery History of hernia repair Family History Father HTN (hypertension) CVD (cardiovascular disease) Sister AIDS Maternal Grandfather Unknown family medical history Maternal Grandmother Unknown family medical history Paternal Grandfather Unknown family medical history Paternal Grandmother Unknown family medical history Sister No problems noted. Sister No problems noted. Sister No problems noted. Social History Household Members: None Housing: Apartment Are you a primary animal care specialist to a significant other at home: No Do you presently have visiting nurse or other home services: Yes ([facility] program per pt) Alcohol intake: former Comment: restraints Patient Tobacco Use Status: Current everyday Tobacco user Tobacco use type: Cigarette Cigarette Packs Per Day: 1 Cigarettes Per Day: 20.0 e-Cigarette/Vaping Use: Never Used Substance Use Type: Marijuana Advance Directives Date on File: 08/16/22 service: No Current occupational status: disabled Cognitive needs: No Hearing needs: No Vision needs: Yes Questionnaire Thrive Questionnaire Date Thrive assessed: 10/02/24 I am a: Parent/Caregiver What is your living situation today?: I choose not to answer this question Within the past 12 months, did the food you bought not last and you didn't have the money to get more?: I choose not to answer this question Within the past 12 months, did you worry whether your food would run out before you got money to buy more?: I choose not to answer this question Do you have trouble paying for medicines?: I choose not to answer this question Do you have trouble getting transportation to medical appointments?: I choose not to answer this question Do you have trouble paying your heating and electricity bill?: I choose not to answer this question Do you have trouble taking care of your child, family member or friend?: I choose not to answer this question Do you have trouble with day-to-day activities such as bathing, preparing meals, shopping, managing finances, etc.?: I choose not to answer this question Are you currently unemployed and looking for a job?: I choose not to answer this question Are you interested in more education?: I choose not to answer this question Please select the resources that you would like help with: None Currently or been in a relationship where the following occur: I choose not to answer THRIVE Score: 0 PATSY-7 AMB Questionnaire PATSY-7 Date PATSY - 7 assessed: 10/02/24 Source: Developed by Drs. Jimy Franco, Madison Berry, Tyler Guy and colleagues, with an educational herb from [employer]. Physical exam (Primary Care) Vital Signs: Last Vital Signs Pulse 73 04/09/25 10:05 BP 136/76 04/09/25 10:05 Pulse Ox 94 04/09/25 10:05 BMI result Body Mass Index 32.6 Tobacco/Smoking Status: Tobacco use Status Tobacco use date assessed 12/20/24 04/09/25 10:07 Patient Tobacco Use Status Current everyday Tobacco 04/09/25 10:07 Tobacco use type Cigarette 04/09/25 10:07 e-Cigarette/Vaping Use Never Used 04/09/25 10:07 Thrive Assessment: Date of Thrive Assessment Date Thrive assessed 10/02/24 04/09/25 10:07 Currently or been in a relationship where the following occur: I choose not to answer Coding Level of Care Code Est Pt Level 3 (98401) Diagnoses Chronic pain of left knee M25.562; G89.29 Chronicity: chronic Pain, joint, knee, left M25.562 Primary osteoarthritis of left knee M17.12 Osteoarthritis type: primary Instability of left knee joint M25.362 Assessment & Plan Assessment & Plan (1) Knee pain, left: Code(s): M25.562 - Pain in left knee Category: Medical Qualifiers: Chronicity: chronic Qualified Code(s): M25.562 - Pain in left knee; G89.29 - Other chronic pain (2) Pain, joint, knee, left: Code(s): M25.562 - Pain in left knee Category: Medical (3) Osteoarthritis of left knee: Code(s): M17.12 - Unilateral primary osteoarthritis, left knee Category: Medical Qualifiers: Osteoarthritis type: primary Qualified Code(s): M17.12 - Unilateral primary osteoarthritis, left knee (4) Instability of left knee joint: Code(s): M25.362 - Other instability, left knee Category: Medical Plan - The patient is a 63-year-old male with a history of psychiatric illness, hypertension, BPH, rash , hypothyroidism, lipid disorder, hypertension , like umbilical hernia Came in with chief complaint of left knee pain which is chronic but is getting worse - The patient has experienced knee pain for approximately 15 years, with symptoms initially starting after an unspecified event. - Pain has progressively worsened over time, with increased difficulty in w alking noted by the patient. - Left knee shows significant swelling and the patient reports having seen a physician previously. - The patient reports difficulty maintaining balance and uses a walker - There are noted symptoms of clicking and instability reported with movement of the knee. Medical History: - Left knee osteoarthritis reported by the patient. Social History: - The patient uses a walker for mobility assistance due to leg weakness. Problem List - Bilateral Knee Osteoarthritis Patient Instructions - Get an x-ray of the knee done at the facility before leaving. - Follow-up with the orthopedist post-x-ray for further evaluation. Orders: Orders XR knee LT 2V Today M25.562 - Pain in left knee Referrals Orthopedics Referral M17.12 - Unilateral primary osteoarthritis, left knee, M25.362 - Other instability, left knee, M25.562 - Pain in left knee
--- OUTSIDE RECORDS SUMMARY | 2025-04-09 10:54 | XMS_ITS | Patient Health Record ---
Author Organization [facility] Address [address] [place] [address] Care Team Providers Care Lockstitch Shoulder Joiner Name Role Phone Raphael GEE, [facility] Primary [facility] Provider Jimy Pandya Unavailable [phone] Tata Osorio Unavailable Unavailable Allergies Allergen (clinical [...] 1 Orally QD Active Vitamin D-3 Active [place] 3 1000 MG 1 capsule Orally Onc e a day Active [place] Carbonate ER 300 MG 3 tablet at [...] Problem Status W/U Status Risk Notes Problem 809515781 Gastroesophageal reflux disease without esophagitis (K21.9) Active confirmed Problem 651512097 Iron deficiency anemia due to chronic blood loss (D50.0) Active confirmed Problem 77909417 Pharyngoesophage al dysphagia (R13.14) Active confirmed Problem 36731786 Iron deficiency anemia, unspecified iron deficiency anemia type (D50.9) Active confirmed Problem 657802907 Anemia, unspecif ied type (D64.9) Active confirmed Problem 938509924 Gastroesophageal reflux disease with esophagitis without hemorrhage [...] OF [place] [address] [place] [address] [id number] CLIFKATHLEEN PRADO Self - patient is the insured [facility]ICAID [facility] [address] [place] [address] [id number] KATHLEEN DESIR Self - patient is the insured Medical (General) History Medical History History ICD Code Denies [place],DM,CVA,renal disease Chronic dysphagia--he had a normal upper [...]
--- OUTSIDE RECORDS SUMMARY | 2025-04-09 10:54 | XMS_ITS | Patient Health Record ---
Author Organization [facility] Address [address] [facility] [place] [address] Care Team Providers Care Aligner Name Role Phone Raphael GEE, [facility] Primary [facility] Provider Eva Aguayo Unavailable [phone] Allergies Allergen (clinical drug ingredient) Drug/Non Drug [...] tablet Orally Once a day 11/19/2024 Active [place] 3 1000 MG 1 capsule Orally Thr [...] 02/12/2025 Encounters Encounter Location Date Provider Diagnosis [facility] [address] [address] 02/12/2025 Eva Adrian Onychomycosis B35.1 ; Other [...] Details Provider Name:Evaleonard grullon, 04/25/2025 12:00:00 PM, [address] [place] [address], [phone], Insurance Providers Payer Name Payer Address Payer Phone Subscriber Number Group Number Insured Name Patient Relationship to Insured Coverage Start Date Coverage End Date Medicare National Govt Svcs Inc [address] [place] [address] [id number] Robb Rene Self - patient is the insured 0 Medical (General) History Medical History History ICD Code Anxiety Arthritis Back,Hip,and Knee pain CAD (Cholesterol) Cataracts Depression Hiatal hernia High Blood Pressure Psychiatric disorder Reflux ( GERD) Sinusitis Sickle cell disease Surgical History Surgery Date(Month/Year) hernia surgery 02/09 cataract surgery face surgery
== END 2025-04-09 12:05 | disposition home or self-care (01) ==
LOC: HO.HMCC 10:03
PROVIDERS: PCP Internal Medicine; Visit Provider Internal Medicine
DX: M25.562 Pain in left knee (principal); G89.29 Other chronic pain; M17.12 Unilateral primary osteoarthritis, left knee; M25.362 Other instability, left knee

== ENCOUNTER 2025-04-09 10:02 | Outpatient (REF) | payer MEDICARE, MEDICAID, SELFPAY ==
--- NOTE | ~2025-04-09 | XR_ITS ---
EXAMINATION: XR KNEE, LEFT CLINICAL INFORMATION: M25.562 - Pain in left knee COMPARISON: December 16, 2020. TECHNIQUE: AP and lateral views of the left knee. FINDINGS: Joint space narrowing involving mostly the medial compartment. Multiple marginal osteophyte formation and femoral condyles tibial plateaus and posterior patella. No acute cortical disruption or malalignment. Chondrocalcinosis in the medial lateral compartments. Sclerosis along the articular surface of the medial tibial plateau with the 3 mm depression deformity. Small suprapatellar bursa joint effusion. Vascular calcifications. XR/XR knee LT 2V IMPRESSION: Tricompartmental osteoarthrosis severe in the medial compartment. Electronically signed by: Janes Villa MD 04/09/2025 10:46 AM EDT
== END 2025-04-09 10:03 | disposition home or self-care (01) ==
LOC: HO.HMGCX 10:02
PROVIDERS: PCP Internal Medicine; Visit Provider Internal Medicine
DX: M17.12 Unilateral primary osteoarthritis, left knee (principal); M25.562 Pain in left knee; G89.29 Other chronic pain; M25.362 Other instability, left knee
CPT/HCPCS: 73560; 99212

== ENCOUNTER → 2025-04-09 10:26 | Outpatient (BNV) | payer MEDICARE, MEDICAID, SELFPAY | PROVIDERS: PCP Internal Medicine; Visit Provider Radiology Diagnostic Radiology | DX: M17.12 Unilateral primary osteoarthritis, left knee (principal) | CPT/HCPCS: 73560 ==

== ENCOUNTER 2025-04-21 10:44 | Outpatient (REF) | payer MEDICARE, MEDICAID, SELFPAY ==
--- OUTSIDE RECORDS SUMMARY | 2025-04-21 11:37 | XMS_ITS | Patient Health Record ---
Author Organization [facility] Address [address] [facility] [place] [address] Care Team Providers Care Ornamental Iron Worker Apprentice Name Role Phone Raphael GEE, [facility] Primary [facility] Provider Eva Aguayo Unavailable [phone] Allergies Allergen (clinical drug ingredient) Drug/Non Drug [...] tablet Orally Once a day 11/19/2024 Active [place] 3 1000 MG 1 capsule Orally Thr [...] 02/12/2025 Encounters Encounter Location Date Provider Diagnosis [facility] [address] [address] 02/12/2025 Eva Adrian Onychomycosis B35.1 ; Other [...] Details Provider Name:Evaleonard grullon, 04/25/2025 12:00:00 PM, [address] [place] [address], [phone], Insurance Providers Payer Name Payer Address Payer Phone Subscriber Number Group Number Insured Name Patient Relationship to Insured Coverage Start Date Coverage End Date Medicare National Govt Svcs Inc [address] [place] [address] [id number] Robb Rene Self - patient is the insured 0 Medical (General) History Medical History History ICD Code Anxiety Arthritis Back,Hip,and Knee pain CAD (Cholesterol) Cataracts Depression Hiatal hernia High Blood Pressure Psychiatric disorder Reflux ( GERD) Sinusitis Sickle cell disease Surgical History Surgery Date(Month/Year) hernia surgery 02/09 cataract surgery face surgery
--- OUTSIDE RECORDS SUMMARY | 2025-04-21 11:37 | XMS_ITS | Patient Health Record ---
Author Organization [facility] Address [address] [place] [address] Care Team Providers Care Cranberry Grower Name Role Phone Raphael GEE, [facility] Primary [facility] Provider Jimy Pandya Unavailable [phone] Tata Osorio Unavailable Unavailable Allergies Allergen (clinical [...] 1 Orally QD Active Vitamin D-3 Active [place] 3 1000 MG 1 capsule Orally Onc e a day Active [place] Carbonate ER 300 MG 3 tablet at [...] Problem Status W/U Status Risk Notes Problem 998361978 Gastroesophageal reflux disease without esophagitis (K21.9) Active confirmed Problem 403144277 Iron deficiency anemia due to chronic blood loss (D50.0) Active confirmed Problem 70474276 Pharyngoesophage al dysphagia (R13.14) Active confirmed Problem 19675251 Iron deficiency anemia, unspecified iron deficiency anemia type (D50.9) Active confirmed Problem 833821682 Anemia, unspecif ied type (D64.9) Active confirmed Problem 271474190 Gastroesophageal reflux disease with esophagitis without hemorrhage [...] OF [place] [address] [place] [address] [id number] CLIFKATHLEEN PRADO Self - patient is the insured MEDICAID OF [facility] [address] [place] [address] [id number] KATHLEEN DESIR Self - patient is the [...]
[2025-04-21 14:11] LABS: Prostate Specific Antigen 0.25 ng/mL (<0.05-4.0)
== END 2025-04-21 10:45 | disposition home or self-care (01) ==
LOC: HO.HMGCLDS 10:44
PROVIDERS: PCP Internal Medicine; Visit Provider Nurse Practitioner Family
DX: Z12.5 Encounter for screening for malignant neoplasm of prostate (principal); N40.1 Benign prostatic hyperplasia with lower urinary tract symptoms; N39.0 Urinary tract infection, site not specified; R33.9 Retention of urine, unspecified
CPT/HCPCS: 36415; 84153

== ENCOUNTER → 2025-04-22 12:00 | Outpatient (BNV) | payer MEDICARE, MEDICAID, SELFPAY | PROVIDERS: PCP Internal Medicine; Visit Provider Internal Medicine | DX: F25.9 Schizoaffective disorder, unspecified (principal); J44.9 Chronic obstructive pulmonary disease, unspecified; K70.9 Alcoholic liver disease, unspecified | CPT/HCPCS: G0179 ==

== ENCOUNTER 2025-04-23 12:48 | Outpatient (AMB) | payer MEDICARE, MEDICAID, SELFPAY ==
--- NOTE | 2025-04-23 12:51 | A.OFFVIS_ITS ---
Intake Visit Reasons: 6m/PSA Intake Note: Patient is present for 6M/PSA Urology Medication:TAMSULOSIN,DUTASTERIDE Antibiotic Allergy:NONE Blood Thinner:NONE TODAY'S PVR:453ML'S Relay Engineer Required: No Allergies atorvastatin (From LIPITOR) Allergy (Unknown, Verified 04/23/25 13:38) HIGH LFTS Medication List - Last Reconciled 04/23/25 by ALIE ReeseP- cholecalciferol (vitamin D3) 50 mcg PO DAILY 90 days dutasteride 0.5 mg PO DAILY 90 days ezetimibe (Zetia) 10 mg PO DAILY ferrous sulfate 325 mg PO DAILY fluticasone furoate 200 mcg/actuation (Arnuity Ellipta) 1 inh inhalation Q24H gabapentin 300 mg PO BID naltrexone 50 mg PO DAILY omega 7-zbb-krz-fish oil 300 mg (120 mg- 180mg)-1,000 mg 1 cap PO BID omega 3-sbo-jxe-fish oil 300-1,000 mg 1 cap PO BID 90 days paroxetine HCl (Paxil) 20 mg PO DAILY quetiapine (Seroquel) 50 mg PO BEDTIME risperidone (Risperdal) 2 mg PO DAILY PRN risperidone microspheres ER 50 mg (2 mL) IM Q2W sulfamethoxazole-trimethoprim 800-160 mg (Bactrim DS) 1 tab PO BID 7 days terazosin 5 mg PO BEDTIME 30 days HPI Comments Details: Robb is a 64-year-old male patient of Dr. Lim who was accompanied by his CHD worker at today's office visit. He has a past medical history of hypertension, schizoaffective schizophrenia, chronic lymphatic leukemia, basal cell carcinoma excision in 2011 to the right cheek, nicotine d ependence, vitamin-D deficiency, alcoholic liver disease, depression, obesity, BPH, COPD, lipid disorder, chronic GERD, and hypothyroidism. He presents to the office today for follow-up of his lower urinary tract symptoms. In discussion with the patient he reports compliance with Flomax and dutasteride as prescribed. He reports new onset dysuria as well as lower abdominal discomfort over the last few days. In office urinalysis results reviewed with the patient today 3+ leukocytes negative nitrates PVR 453 ml. We did discuss potential causes of incomplete bladder emptying as well as urinary tract infection. Recent PSA results reviewed with the patient today as noted and trended below. He otherwise denies urinary urgency, urinary frequency, incontinence, nocturia, hematuria, foul smelling urine, flank pain, fever, and or chills. He is happy with his current voiding parameters. PSAs are as follows: PSA 12/04 .4, 12/08 0.3 He otherwise offers no other issues or concerns at this time. PREVIOUS OFFICE NOTE: Accompanied by a child welfare consultant Last PVR 600 cc, Current PVR 200 Continue with Flomax 0.8 mg and dutasteride Six-month follow-up PVR nurse-practitioner Lower urinary tract symptoms Background of psychiatric medications with risperidone, lithium Has been Flomax 0.4 mg and dutasteride Increase Flomax to 0.8 PSA 12/08 0.3 PFSH Medical History Aortic stenosis Hx of transfusion of packed red blood cells Cough Sleep apnea Murmur Umbilical hernia History of basal cell carcinoma (BCC) Nicotine dependence, cigarettes, uncomplicated Schizo-affective schizophrenia CLL (chronic lymphocytic leukemia) Hypertension, essential Hypercalcemia due to lithium Non-toxic multinodular goiter Vitamin D deficiency 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 Alcoholic liver disease Depression, major, recurrent Thrombocytosis Obesity BPH (benign prostatic hyperplasia) COPD (chronic obstructive pulmonary disease) Lipid disorder Chronic GERD Hypothyroidism Surgical History History of left cataract surgery History of esophagogastroduodenoscopy (EGD) History of colonoscopy History of basal cell carcinoma (BCC) excision History of surgery History of hernia repair Family History Father HTN (hypertension) CVD (cardiovascular disease) Sister AIDS Maternal Grandfather Unknown family medical history Maternal Grandmother Unknown family medical history Paternal Grandfather Unknown family medical history Paternal Grandmother Unknown family medical history Sister No problems noted. Sister No problems noted. Sister No problems noted. Social History Household Members: None Housing: Apartment Are you a primary customer care professional to a significant other at home: No Do you presently have visiting nurse or other home services: Yes (CHD program per pt) Alcohol intake: former Comment: restraints Patient Tobacco Use Status: Current everyday Tobacco user Tobacco use type: Cigarette Cigarette Packs Per Day: 1 Cigarettes Per Day: 20.0 e-Cigarette/Vaping Use: Never Used Substance Use Type: Marijuana Advance Directives Date on File: 08/16/22 service: No Current occupational status: disabled Cognitive needs: No Hearing needs: No Vision needs: Yes Review of Systems Const All systems reviewed & are unremarkable except as noted in HPI and below Physical Exam Const General: cooperative, healthy appearing, comfortable, no acute distress, well developed, alert and awake Orientation/consciousness: patient oriented x3 Limitations: ambulation with walker HEENT Head: Yes normal to inspection, Yes normocephalic and Yes atraumatic Ears: hearing grossly normal bilaterally Eyes General: appearance normal, both eyes and all related structures Neck Neck: Yes normal visual inspection and Yes trachea midline Chest Chest palpation & inspection: normal inspection of the chest Resp Effort & Inspection: normal respiratory effort and able to speak in complete sentences Cardio Rate: regular rate GI Inspection: Yes normal to inspection General: Yes no CVA tenderness Back/Spine/Pelvis Back: no CVA tenderness Skin General skin exam: no rashes or lesions noted Neuro General: patient oriented x3 Extrem General: Yes normal to inspection Psych Appearance: grossly normal and well kempt Mental Status: mental status grossly normal Speech and movement: Normal speech and movement present and Clear speech present Affect: normal affect Attitude: cooperative Thought process: Normal thought process present Thought content: Normal thought content present Insight: Limited insight present (Psych) and Poor insight present (Psych) Judgement: Limited judgement present (Psych) and Poor judgement present (Psych) Office Procedures Post Void Residual Post Residual Void Post Void Residual (PVR): 453 [id number]-[id number] Void Residual by ultrasound Results AMB Urinalysis, Automated UA Leukoctes 500 Donell/uL Last Edit by LUIS Stephens on 04/23/25 13:14 UA Nitrite Negative Last Edit by LUIS Stephens on 04/23/25 13:14 UA Urobilinogen 0.2 mg/dL Last Edit by LUIS Stephens on 04/23/25 13:1 4 UA Protein 30 mg/dL Last Edit by LUIS Stephens on 04/23/25 13:14 UA pH 6.0 Last Edit by LUIS Stephens on 04/23/25 13:14 UA Blood 25 Jack/uL Last Edit by LUIS Stephens on 04/23/25 13:14 UA Specific [place] 1.005 Last Edit by LUIS Stephens on 04/23/25 13: 14 UA Ketone Negative Last Edit by LUIS Stephens on 04/23/25 13:14 UA Bilirubin 0 mg/dL Last Edit by LUIS Stephens on 04/23/25 13:14 UA Glucose 0 mg/dL Last Edit by LUIS Stephens on 04/23/25 13:14 Results Reviewed Results Reviewed: Laboratory Last Values Urine pH (Auto) 6.0 04/23/25 13:13 Specific [place] (Auto) 1.005 04/23/25 13:13 Urine Protein (Auto) 30 mg/dL 04/23/25 13:13 Glucose (UA)(Auto) 0 mg/dL 04/23/25 13:13 Urine Ketones (Auto) Negative 04/23/25 13:13 Urine Blood (Auto) 25 Jack/uL 04/23/25 13:13 Urine Nitrite (Auto) Negative 04/23/25 13:13 Urine Bilirubin (Auto) 0 mg/dL 04/23/25 13:13 Urine Urobilinogen (Auto) 0.2 mg/dL 04/23/25 13:13 Leukocyte Esterase (Auto) 500 Donell/uL 04/23/25 13:13 Assessment & Plan Assessment & Plan (1) Weak urinary stream: Code(s): R39.12 - Poor urinary stream Category: Medical (2) BPH (benign prostatic hyperplasia): Code(s): N40.0 - Benign prostatic hyperplasia without lower urinary tract symptoms Category: Medical Qualifiers: Lower urinary tract symptom presence: symptoms present Lower urinary tract symptom detail: urinary frequency Qualified Code(s): N40.1 - Benign prostatic hyperplasia with lower urinary tract symptoms; R35.0 - Frequency of micturition (3) Incomplete emptying of bladder due to benign prostatic hyperplasia: Code(s): N40.1 - Benign prostatic hyperplasia with lower urinary tract symptoms; R33.9 - Retention of urine, unspecified Category: Medical (4) Urinary tract infection: Code(s): N39.0 - Urinary tract infection, site not specified Category: Medical (5) Dysuria: Code(s): R30.0 - Dysuria Category: Medical Plan In office urinalysis results reviewed with the patient today; as noted above; will send for urine culture. Stop Flomax. Start terazosin as discussed and prescribed. Start Bactrim as discussed and prescribed. We discussed at length potential causes of incomplete bladder emptying as well as urinary tract infection We did discussed further treatment options of incomplete bladder emptying. Recent PSA results reviewed with the patient today; as noted above. We discussed importance of limiting/quitting nicotine dependence for overall health and well-being. PVR 453 mL Follow-up in 1-3 months with PVR; or sooner with any issues, concerns, and or questions. Orders: Orders AMB Urinalysis Automated Today Z13.9 - Encounter for screening, unspecified Urine Culture Today N39.0 - Urinary tract infection, site not specified Medications: New terazosin 5 mg PO BEDTIME 30 caps 3RF 30 days N40.1 - Benign prostatic hyperplasia with lower urinary tract symptoms, R35.0 - Frequency of micturition sulfamethoxazole-trimethoprim 800-160 mg (Bactrim DS) 1 tab PO BID 14 tabs 0RF 7 days N39.0 - Urinary tract infection, site not specified Patient Instructions: The patient had an opportunity to ask questions regarding the treatment plan. All questions were answered. Physical exam, labs, and imaging were discussed and reviewed in detail. As well as risks, benefits, and discussion of treatment choices. No major barriers to understanding were identified. The patient expressed understanding and agreement with the above treatment plan. The patient was made aware they should contact our office by phone for worsening of their current condition, the appearance of new symptoms, or with any questions or concerns. Compliance is encouraged with any medications and follow up testing that is ordered. It is a privilege to be allowed the opportunity to participate in? your urological care.? Again, if you have any questions or concerns If you have any questions or concerns please do not hesitate to contact me. The office is [phone]. This note is constructed using voice recognition software. While every effort has been made to ensure accuracy creping machine operator errors may have been included. Yours sincerely, SHERIN Reese Coding Level of Care Code Est Pt Level 4 (74578) Complex EM visit Add On G2211 Diagnoses Weak urinary stream R39.12 Benign prostatic hyperplasia with urinary frequency N40.1; R35.0 Lower urinary tract symptom presence: symptoms present Lower urinary tract symptom detail: urinary frequency Incomplete emptying of bladder due to benign prostatic hyperplasia N40.1; R33.9 Urinary tract infection N39.0 Dysuria R30.0 CPT Codes Post Residual Void - PVR CPT Code: 71795-Vusx Void Residual by ultrasound ([id number])
--- OUTSIDE RECORDS SUMMARY | 2025-04-23 13:21 | XMS_ITS | Patient Health Record ---
[facility] Address [address] [facility] [place] [address] Care Team Providers Care Care Process Manager Name Role Phone Raphael GEE, [facility] Primary Care Provider Eva Aguayo Unavailable [phone] Allergies Allergen (clinical drug ingredient) Drug/Non Drug [...] tablet Orally Once a day 11/19/2024 Active Emelle 3 1000 MG 1 capsule Orally Thr [...] 02/12/2025 Encounters Encounter Location Date Provider Diagnosis [facility] [address] [address] 02/12/2025 Eva Adrian Onychomycosis B35.1 ; Other [...] Details Provider Name:Evaleonard grullon, 04/25/2025 12:00:00 PM, [address] [place] [address], [phone], Insurance Providers Payer Name Payer Address Payer Phone Subscriber Number Group Number Insured Name Patient Relationship to Insured Coverage Start Date Coverage End Date Medicare National Govt Svcs Inc [address] [place] [address] [id number] Robb Rene Self - patient is the insured 0 Medical (General) History Medical History History ICD Code Anxiety Arthritis Back,Hip,and Knee pain CAD (Cholesterol) Cataracts Depression Hiatal hernia High Blood Pressure Psychiatric disorder Reflux ( GERD) Sinusitis Sickle cell disease Surgical History Surgery Date(Month/Year) hernia surgery 02/09 cataract surgery face surgery
--- OUTSIDE RECORDS SUMMARY | 2025-04-23 13:21 | XMS_ITS | Patient Health Record ---
Author Organization [facility] Address [address] [place] [address] Care Team Providers Care Set Up Worker Name Role Phone Raphael GEE, [facility] Primary Care Provider Jimy Pandya Unavailable [phone] Tata Osorio Unavailable Unavailable Allergies Allergen (clinical [...] 1 Orally QD Active Vitamin D-3 Active [place] 3 1000 MG 1 capsule Orally Onc e a day Active [place] Carbonate ER 300 MG 3 tablet at [...] Problem Status W/U Status Risk Notes Problem [id number] Gastroesophageal reflux disease without esophagitis (K21.9) Active confirmed Problem 563822025 Iron deficiency anemia due to chronic blood loss (D50.0) Active confirmed Problem 83726338 Pharyngoesophage al dysphagia (R13.14) Active confirmed Problem 99316956 Iron deficiency anemia, unspecified iron deficiency anemia type (D50.9) Active confirmed Problem 357452735 Anemia, unspecif ied type (D64.9) Active confirmed Problem 318685515 Gastroesophageal reflux disease with esophagitis without hemorrhage [...] OF [place] [address] [place] [address] [id number] CLIFKATHLEEN PRADO Self - patient is the insured [facility]ICAID [facility] [address] [place] [address] [id number] KATHLEEN DESIR Self - patient is the insured Medical (General) History Medical History History ICD Code Denies [place],DM,CVA,renal disease Chronic dysphagia--he had a normal upper [...]
== END 2025-04-23 13:38 | disposition home or self-care (01) ==
LOC: HO.HUSH 12:49
PROVIDERS: PCP Internal Medicine; Visit Provider Nurse Practitioner Family
DX: N40.1 Benign prostatic hyperplasia with lower urinary tract symptoms (principal); R39.12 Poor urinary stream; R35.0 Frequency of micturition; R33.9 Retention of urine, unspecified; N39.0 Urinary tract infection, site not specified; R30.0 Dysuria; Z13.9 Encounter for screening, unspecified
CPT/HCPCS: 99214; G2211

== ENCOUNTER 2025-04-23 12:48 | Outpatient (REF) | payer MEDICARE, MEDICAID, SELFPAY | END 2025-04-23 12:49 | disposition home or self-care (01) | LOC: HO.LAB 12:48 | PROVIDERS: PCP Internal Medicine; Visit Provider Nurse Practitioner Family | DX: N40.1 Benign prostatic hyperplasia with lower urinary tract symptoms (principal); R35.0 Frequency of micturition; R33.8 Other retention of urine; R30.0 Dysuria; N39.0 Urinary tract infection, site not specified; R39.12 Poor urinary stream; Z13.89 Encounter for screening for other disorder; Z79.899 Other long term (current) drug therapy | CPT/HCPCS: 51798; 81003; 87086; 99212 ==

== ENCOUNTER 2025-05-17 10:33 | Outpatient (REF) | payer MEDICARE, MEDICAID, SELFPAY ==
--- OUTSIDE RECORDS SUMMARY | 2025-05-17 10:36 | XMS_ITS | Patient Health Record ---
Author Organization [facility] Address [address] [facility] [place] [address] Care Team Providers Care Strainer Mill Operator Name Role Phone Raphael GEE, [facility] Primary Care Provider Eva Aguayo Unavailable [phone] Allergies Allergen (clinical drug ingredient) Drug/Non Drug Allergy documented on EMR Reaction Allergy Type Onset Date Status atorvastatin Lipitor increases LFTs Drug Allergy Active Reason For Referral No Information Medications Medication SIG (Take, Route, Frequency, Duration) Notes Start Date End Date Status risperiDONE 2 MG TAKE 1 TABLET BY RENÉE TH DAILY NEEDED FOR ANXIETY OR AGITATION Oral; Duration: 30 Days Active Terazosin HCl 5 MG Oral; Duration: 90 Days Active RisperDAL Consta 50 MG Intramuscular; Du ration: 28 Days Active Ferrous Sulfate 325 (65 Fe) MG 1 tablet Orally Three times a Week 11/19/2024 Active Avodart 0.5 MG 1 capsule Orally Once a day Active Vitamin D3 Active Flovent HFA Active Tylenol Active Flomax Active RisperDAL Consta 50 MG as directed Intramuscular 0 11/19/2024 Active Melatonin 5 MG 1 tablet in the even ing Orally Once a day 11/19/2024 Active Paxil 20 MG 1 tablet in the morn ing Orally Once a day Active Lopid 600 MG 1 tablet 30 minutes before morning and evening meals Orally Twice a day Active Bactrim 400-80 MG 1 tablet Orally Once a day Active Levoxyl 112 MCG 1 tablet in the morn ing on an empty stomach Orally Once a day Active Zetia 10 MG 1 tablet Orally Once a day 11/19/2024 Active Gocovri Active ReVia Active PriLOSEC Active [place] 3 1000 MG 1 capsule Orally Thr ee times a day 11/19/2024 Active Norvasc 5 MG 1 tablet Orally Once a day 11/19/2024 Active Immunizations Vaccine Route Administration Date Status Comme nts Influenza Unknown 05/19/2024 Administered Social History Tobacco Use: Social History [...] user Moderate cigar ette smoker (10-19 cigs/day) AUDIT-C (Standard) Question Answer Notes Did you have a drink containing alcohol in the p ast year? 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) Active confirmed Vital Signs Blood pressure diastolic 80 mm Hg 04/25/2025 Height 5ft9in in 04/25/2025 Blood pressure systolic 143 mm Hg 04/25/2025 Weight 224 lbs 04/25/2025 BMI 33.08 kg/m2 04/25/2025 [facility]counters [facility] [address] [facility]25 Eva Campbell Onychomycosis B35.1 ; Other hammer toe(s) (acquired), right foot M20.41 ; Pain in right toe(s) M79.674 ; Pain in left toe(s) M79.675 ; Right foot pain M79.671 ; Plantar wart B07.0 and Other hammer toe(s) (acquired), left foot M20.42 [facility] [address] [address] [place] [address] 04/25/2025 Eva Campbell Other hammer toe(s) (acquired), right foot M20.41 ; Post-traumatic arthritis of left ankle M19.172 ; Onychomycosis B35.1 ; Pain in right toe(s) M79.674 ; Pain in left toe(s) M79.675 ; Right foot pain M79.671 ; Plantar wart B07.0 and Other hammer toe(s) (acquired), left foot M20.42 Assessments Encounter Date Diagnosis (ICD Code) Assessment Notes Treatment Notes Treatment Clinical Notes Section Notes 02/12/2025 Other hammer toe(s) (acquired), right foot (ICD-10 - M20.41) 02/12/2025 Onychomycosis (ICD-10 - B35.1) 04/25/2025 Other hammer toe(s) (acquired), right foot (ICD-10 - M20.41) 04/25/2025 Post-traumatic arthritis of left ankle (ICD-10 - M19.172) 04/25/2025 Onychomycosis (ICD-10 - B35.1) 02/12/2025 Pain in right toe(s) (ICD-10 - M79.674) 02/12/2025 Pain in left toe(s) (ICD-10 - M79.675) 04/25/2025 Pain in right toe(s) (ICD-10 - M79.674) 04/25/2025 Pain in left toe(s) (ICD-10 - M79.675) 02/12/2025 Right foot pain (ICD-10 - M79.671) 02/12/2025 Plantar wart (ICD-10 - B07.0) 04/25/2025 Right foot pain (ICD-10 - M79.671) 04/25/2025 Plantar wart (ICD-10 - B07.0) 02/12/2025 Other hammer toe(s) (acquired), left foot (ICD-10 - M20.42) 04/25/2025 Other hammer toe(s) (acquired), left foot (ICD-10 - M20.42) Plan Of Treatment Next Appt Details Provider Name:Eva Grullon Jose grullon, 07/18/2025 12:00:00 PM, [address] [facility], [place], [address], Insurance Providers Payer Name Payer Address Payer Phone Subscriber Number Group Number Insured Name Patient Relationship to Insured Coverage Start Date Coverage End Date Medicare National Govt Svcs Inc [address] [place] [address] [id number] Robb Rene Self - patient is the insured 0 Medical (General) History Medical History History ICD Code Anxiety Arthritis Back,Hip,and Knee pain CAD (Cholesterol) Cataracts Depression Hiatal hernia High Blood Pressure Psychiatric disorder Reflux ( GERD) Sinusitis Sickle cell disease Surgical History Surgery Date(Month/Year) hernia surgery 02/09 cataract surgery face surgery
--- OUTSIDE RECORDS SUMMARY | 2025-05-17 10:36 | XMS_ITS | Patient Health Record ---
Author Organization [facility] Address [address] [place] [address] Care Team Providers Care Interactive Account Manager Name Role Phone Raphael GEE, [facility] Primary [facility] Provider Jimy Pandya Unavailable [phone] Tata Osorio Unavailable Unavailable Allergies Allergen (clinical [...] 1 Orally QD Active Vitamin D-3 Active [place] 3 1000 MG 1 capsule Orally Onc e a day Active [place] Carbonate ER 300 MG 3 tablet at [...] Problem Status W/U Status Risk Notes Problem 753664402 Gastroesophageal reflux disease without esophagitis (K21.9) Active confirmed Problem 263531180 Iron deficiency anemia due to chronic blood loss (D50.0) Active confirmed Problem 76186816 Pharyngoesophage al dysphagia (R13.14) Active confirmed Problem 89542624 Iron deficiency anemia, unspecified iron deficiency anemia type (D50.9) Active confirmed Problem 113085559 Anemia, unspecif ied type (D64.9) Active confirmed Problem 364158782 Gastroesophageal reflux disease with esophagitis without hemorrhage [...] OF [place] [address] [place] [address] [id number] CLIFKATHLEEN PRADO Self - patient is the insured [facility]ID [facility] [address] [place] [address] [id number] KATHLEEN DESIR Self - patient is the insured Medical (General) History Medical History History ICD Code Denies [place],DM,CVA,renal disease Chronic dysphagia--he had a normal upper [...]
[2025-05-17 13:58] LABS: Appearance Urine Clear; Glucose Urine UA Negative (Negative); PH 6.0 (5.0-9.0); Specific Gravity - Urine <= 1.005 (1.005-1.025); UMIC TRIGGER UACC YES
== END 2025-05-17 10:34 | disposition home or self-care (01) ==
LOC: HO.HMGCLDS 10:33
PROVIDERS: PCP Internal Medicine; Visit Provider Nurse Practitioner Family
DX: N39.0 Urinary tract infection, site not specified (principal)
CPT/HCPCS: 81001

== ENCOUNTER 2025-06-03 11:43 | Outpatient (REF) | payer MEDICARE, MEDICAID, SELFPAY ==
[2025-06-03 13:21] LABS: Appearance Urine Clear; Glucose Urine UA Negative (Negative); PH 6.0 (5.0-9.0); Specific Gravity - Urine <= 1.005 (1.005-1.025); UMIC TRIGGER UACC YES
--- OUTSIDE RECORDS SUMMARY | 2025-06-03 15:56 | XMS_ITS | Patient Health Record ---
Author Organization [facility] Address [address] [facility] [place] [address] Care Team Providers Care Warp Tier Name Role Phone Raphael GEE, [facility] Primary [facility] Provider Eva Aguayo Unavailable [phone] Allergies Allergen (clinical drug ingredient) Drug/Non Drug [...] Active Gocovri Active ReVia Active PriLOSEC Active [place] 3 1000 MG 1 capsule Orally Thr [...] Problem Acquired hammer toe of right foot (5835293993628 105) Other hammer toe(s) (acquired), right foot (M20.41) Active confirmed Problem Acquired hammer toe of left foot (2952906527998 103) Other hammer toe(s) (acquired), left foot (M20.42) Active confirmed Problem Plantar wart (80874715) Plantar wart (B07.0) Active confirmed Problem Arthritis of left ankle due to trauma (4184056869925 9102) 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) Active confirmed Vital Signs Blood pressure diastolic 80 mm Hg 04/25/2025 Height 5ft9in in 04/25/2025 Blood pressure systolic 143 mm Hg 04/25/2025 Weight 224 lbs 04/25/2025 BMI 33.08 kg/m2 04/25/2025 Encounters [facility]counter [facility] [address] 02/12/[facility]25 Eva Campbell Onychomycosis B35.1 ; Other hammer toe(s) (acquired), right foot M20.41 ; Pain in right toe(s) M79.674 ; Pain in left toe(s) M79.675 ; Right foot pain M79.671 ; Plantar wart B07.0 and Other hammer toe(s) (acquired), left foot M20.42 [facility] [place] [address] [place] [address] 04/25/2025 Eva Campbell Other hammer toe(s) (acquired), [...] Grullon Jose grullon, 07/18/2025 12:00:00 PM, [address] [facility], [place], [address], Insurance Providers Payer Name Payer Address Payer Phone Subscriber Number Group Number Insured Name Patient Relationship to Insured Coverage Start Date Coverage End Date Medicare National Govt Svcs Inc [address] [place] [address] [id number] Robb Rene Self - patient is the insured 0 Medical (General) History Medical History History ICD Code Anxiety Arthritis Back,Hip,and Knee pain CAD (Cholesterol) Cataracts Depression Hiatal hernia High Blood Pressure Psychiatric disorder Reflux ( GERD) Sinusitis Sickle cell disease Surgical History Surgery Date(Month/Year) hernia surgery 02/09 cataract surgery face surgery
--- OUTSIDE RECORDS SUMMARY | 2025-06-03 15:56 | XMS_ITS | Patient Health Record ---
Author Organization [facility] Address [address] [place] [address] Care Team Providers Care Computer Systems Integrator Name Role Phone Raphael GEE, [facility] Primary [facility] Provider Jimy Pandya Unavailable [phone] Tata Osorio Unavailable Unavailable Allergies Allergen (clinical [...] 1 Orally QD Active Vitamin D-3 Active [place] 3 1000 MG 1 capsule Orally Onc e a day Active [place] Carbonate ER 300 MG 3 tablet at [...] Problem Status W/U Status Risk Notes Problem 001588963 Gastroesophageal reflux disease without esophagitis (K21.9) Active confirmed Problem 760238102 Iron deficiency anemia due to chronic blood loss (D50.0) Active confirmed Problem 92076231 Pharyngoesophage al dysphagia (R13.14) Active confirmed Problem 46098829 Iron deficiency anemia, unspecified iron deficiency anemia type (D50.9) Active confirmed Problem 069345418 Anemia, unspecif ied type (D64.9) Active confirmed Problem 398247659 Gastroesophageal reflux disease with esophagitis without hemorrhage (K21.00) Active confirmed Plan Of Treatment Pending Test Test Name Order Date IRON + IBC (FE) 12/21/2017 IRON + IBC (FE) 04/09/2021 FERRITIN 12/21/2017 CBC w DIFF 12/21/2017 CBC w DIFF 04/09/2021 Ferritin 04/09/2021 Future Test Test Name Order Date UPPER GI ENDOSCOPY BALL[place]ON DILATION OF ESOPH 12/13/2017 COLONOSCOPY 12/13/2017 Insurance Providers Payer Name Payer Address Payer Phone Subscriber Number Group Number Insured Name Patient Relationship to Insured Coverage Start Date Coverage End Date MEDICARE OF [place] [address] [place] [address] [id number] CLIFKATHLEEN PRADO Self - patient is the insured MEDICAID OF [employer] [address] [place] [address] [id number] KATHLEEN DESIR Self - patient is the insured Medical (General) History Medical History History ICD Code Denies [place],DM,CVA,renal disease Chronic dysphagia--he had a normal upper [...]
== END 2025-06-03 11:44 | disposition home or self-care (01) ==
LOC: HO.HMGCLDS 11:43
PROVIDERS: PCP Internal Medicine
DX: Z11.8 Encounter for screening for other infectious and parasitic diseases (principal)
CPT/HCPCS: 81001

== ENCOUNTER 2025-06-09 13:37 | Outpatient (AMB) | payer MEDICARE, MEDICAID, SELFPAY ==
--- NOTE | 2025-06-09 13:40 | MHC.OFFVIS ---
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 He describes his pain as sharp in nature. His pain has gotten worse over the last 20 years in spite of continued non operative treatments. The patient states that he injured his left knee several years ago while playing softball. He has had cortisone injections in the past. The most recent cortisone injection gave him no relief. He has failed the last 3 months of conservative treatment which has included physical therapy, Tylenol, anti-inflammatory medicines and a home exercise program. The patient does walk with a walker because of his pain. The patient states that his left knee pain is now interfering with his activities of daily living and his ability to sleep well through the night. The patient wishes to hold off on surgery if at all possible. Allergies atorvastatin (From LIPITOR) Allergy (Unknown, Verified 06/09/25 13:47) HIGH LFTS Medication List - Last Reconciled 06/09/25 by Vincenzo Puente MD cholecalciferol (vitamin D3) 50 mcg PO DAILY 90 days dutasteride 0.5 mg PO DAILY 90 days ezetimibe (Zetia) 10 mg PO DAILY ferrous sulfate 325 mg PO DAILY fluticasone furoate 200 mcg/actuation (Arnuity Ellipta) 1 inh inhalation Q24H gabapentin 300 mg PO BID naltrexone 50 mg PO DAILY nystatin 1 appl topical DAILY 30 days omega 1-wzw-lnz-fish oil 300 mg (120 mg- 180mg)-1,000 mg 1 cap PO BID omega 3-xlj-fuj-fish oil 300-1,000 mg 1 cap PO BID 90 days paroxetine HCl (Paxil) 20 mg PO DAILY quetiapine (Seroquel) 50 mg PO BEDTIME risperidone (Risperdal) 2 mg PO DAILY PRN risperidone microspheres ER 50 mg (2 mL) IM Q2W sulfamethoxazole-trimethoprim 800-160 mg (Bactrim DS) 1 tab PO BID 7 days terazosin 5 mg PO BEDTIME 30 days PFSH Medical History Aortic stenosis Hx of transfusion of packed red blood cells Cough Sleep apnea Murmur Umbilical hernia History of basal cell carcinoma (BCC) Nicotine dependence, cigarettes, uncomplicated Schizo-affective schizophrenia CLL (chronic lymphocytic leukemia) Hypertension, essential Hypercalcemia due to lithium Non-toxic multinodular goiter Vitamin D deficiency 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 Alcoholic liver disease Depression, major, recurrent Thrombocytosis Obesity BPH (benign prostatic hyperplasia) COPD (chronic obstructive pulmonary disease) Lipid disorder Chronic GERD Hypothyroidism Surgical History History of left cataract surgery History of esophagogastroduodenoscopy (EGD) History of colonoscopy History of basal cell carcinoma (BCC) excision History of surgery History of hernia repair Family History Father HTN (hypertension) CVD (cardiovascular disease) Sister AIDS Maternal Grandfather Unknown family medical history Maternal Grandmother Unknown family medical history Paternal Grandfather Unknown family medical history Paternal Grandmother Unknown family medical history Sister No problems noted. Sister No problems noted. Sister No problems noted. Social History Household Members: None Housing: Apartment Are you a primary healthcare project manager to a significant other at home: No Do you presently have visiting nurse or other home services: Yes (CHD program per pt) Alcohol intake: former Comment: restraints Patient Tobacco Use Status: Current everyday Tobacco user Tobacco use type: Cigarette Cigarette Packs Per Day: 1 Cigarettes Per Day: 20.0 e-Cigarette/Vaping Use: Never Used Substance Use Type: Marijuana Advance Directives Date on File: 08/16/22 service: No Current occupational status: disabled Cognitive needs: No Hearing needs: No Vision needs: Yes Physical Exam Const Other: Well-nourished well-developed very friendly male awake alert and oriented x3 in no acute distress Extrem Other: Left knee examination shows a mild effusion, palpable crepitus with range of motion, pain with range of motion, no instability Results Reviewed Results Reviewed: X-rays of the patient's left knee show joint space narrowing, subchondral sclerosis, no acute bony abnormalities Assessment & Plan Assessment & Plan (1) Osteoarthritis of left knee: Code(s): M17.12 - Unilateral primary osteoarthritis, left knee Category: Medical Plan Mr. Rene presents with left knee pain due to osteoarthritis. I had a lengthy discussion with the patient regarding the treatment options. He wishes to hold off on surgery if at all possible. I agree with this plan. I will see if the patient's insurance company will cover a viscosupplementation injection, such as Durolane, for his left knee. I will see him back once the injection is available. Feel free to call me at any time should questions regarding his orthopedic management arise. Thank you very much for asking me to see this very friendly gentleman. I spent 20 minutes in reviewing the patient's records and imaging studies, seeing the patient and documenting in the medical record. Coding Level of Care Code New Pt Level 3 (88335) Complex EM visit Add On G2211 Diagnoses Osteoarthritis of left knee M17.12
--- OUTSIDE RECORDS SUMMARY | 2025-06-09 16:05 | XMS_ITS | Patient Health Record ---
Author Organization [facility] Address [address] [facility] [address]
== END 2025-06-09 13:57 | disposition home or self-care (01) ==
LOC: HO.HOS 13:38
PROVIDERS: PCP Internal Medicine; Visit Provider Orthopaedic Surgery
DX: M17.12 Unilateral primary osteoarthritis, left knee (principal)
CPT/HCPCS: 99203; G2211

== ENCOUNTER → 2025-06-09 13:37 | Outpatient (BNVA) | payer MEDICARE, MEDICAID, SELFPAY | PROVIDERS: PCP Internal Medicine; Visit Provider Orthopaedic Surgery | DX: M17.12 Unilateral primary osteoarthritis, left knee (principal) | CPT/HCPCS: 99202 ==

== ENCOUNTER 2025-07-16 11:44 | Outpatient (AMB) | payer MEDICARE, MEDICAID, SELFPAY ==
[2025-07-16 11:45] VITALS: PULSE 74; RESP 16; TEMP 36.3; O2SAT 92; BMI 32.5
--- NOTE | 2025-07-16 11:45 | MHC.PC.OV ---
Vital Signs 07/16/25 11:45 Height 5 ft 10 in Weight 226 lb 6 oz BMI 32.5 BP not taken reason Patient Refused Respiration 16 Pulse 74 Pulse Source Pulse Oximeter Temp 97.4 F Temp Source Oral Pulse Oximetry (%) 92 Oxygen Delivery Method Room Air Intake Visit Reasons: vcare forms Allergies atorvastatin (From LIPITOR) Allergy (Unknown, Verified 06/09/25 13:47) HIGH LFTS Medication List - Last Reconciled 07/16/25 by Binh Lim MD cholecalciferol (vitamin D3) 50 mcg PO DAILY 90 days dutasteride 0.5 mg PO DAILY 90 days ezetimibe (Zetia) 10 mg PO DAILY ferrous sulfate 325 mg PO DAILY fluticasone furoate 200 mcg/actuation (Arnuity Ellipta) 1 inh inhalation Q24H gabapentin 300 mg PO BID levothyroxine 112 mcg PO DAILY@0600 naltrexone 50 mg PO DAILY nystatin 1 appl topical DAILY 30 days omega 0-iir-fix-fish oil 300 mg (120 mg- 180mg)-1,000 mg 1 cap PO BID omega 5-bos-ugr-fish oil 300-1,000 mg 1 cap PO BID 90 days omeprazole 20 mg PO DAILY@0630 paroxetine HCl (Paxil) 20 mg PO DAILY quetiapine (Seroquel) 50 mg PO BEDTIME risperidone (Risperdal) 2 mg PO DAILY PRN risperidone microspheres ER 50 mg (2 mL) IM Q2W terazosin 5 mg PO BEDTIME 30 days Tobacco use date assessed: 12/20/24 Dental Screening Dental Screen Date: 12/20/24 HPI vcare forms HPI Details History of Present Illness The patient is a 64-year-old male presenting for completion of paperwork to continue Residency Coordinator services. Need for Residency Coordinator Services / Functional Decline: - The patient requires a Residency Coordinator (SHADE HANGER) daily due to arthritis and balance issues, rendering him unable to fully care for himself. - The SHADE HANGER assists with cleaning the house, doing laundry, washing clothes, and preparing food. - He is dependent on a walker for ambulation. Schizophrenia: - The patient has a history of schizophrenia. Establish with psychiatrist Osteoarthritis: - The patient has a history of multiple joint osteoarthritis. Drug Allergy: - The patient has a known allergy to lipidol, which causes LFT elevation. Medical History: - Schizophrenia - Multiple joint osteoarthritis - Balance impairment - Allergy to lipidol with resulting LFT elevation Problem List - Multiple joint osteoarthritis - Schizophrenia - Balance issues with walker dependence - Allergy to lipidol - Administrative visit: Completion of paperwork for Residency Coordinator services Plan - The necessary paperwork for the patient's Residency Coordinator services will be completed and sent. 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: Alert awake oriented x3 motor intact able to lift the walker and is able to ambulate Skin: Normal turgor, have history of tinea corporis groin for that he is asking for cream which was sent [facility] Medical History Aortic stenosis Hx of transfusion of packed red blood cells Cough Sleep apnea Murmur Umbilical hernia History of basal cell carcinoma (BCC) Nicotine dependence, cigarettes, uncomplicated Schizo-affective schizophrenia CLL (chronic lymphocytic leukemia) Hypertension, essential Hypercalcemia due to lithium Non-toxic multinodular goiter Vitamin D deficiency 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 Alcoholic liver disease Depression, major, recurrent Thrombocytosis Obesity BPH (benign prostatic hyperplasia) COPD (chronic obstructive pulmonary disease) Lipid disorder Chronic GERD Hypothyroidism Surgical History History of left cataract surgery History of esophagogastroduodenoscopy (EGD) History of colonoscopy History of basal cell carcinoma (BCC) excision History of surgery History of hernia repair Family History Father HTN (hypertension) CVD (cardiovascular disease) Sister AIDS Maternal Grandfather Unknown family medical history Maternal Grandmother Unknown family medical history Paternal Grandfather Unknown family medical history Paternal Grandmother Unknown family medical history Sister No problems noted. Sister No problems noted. Sister No problems noted. Social History Household Members: None Housing: Apartment Are you a primary ambulatory care nurse to a significant other at home: No Do you presently have visiting nurse or other home services: Yes (CHD program per pt) Alcohol intake: former Comment: restraints Patient Tobacco Use Status: Current everyday Tobacco user Tobacco use type: Cigarette Cigarette Packs Per Day: 1 Cigarettes Per Day: 20.0 e-Cigarette/Vaping Use: Never Used Substance Use Type: Marijuana Advance Directives Date on File: 08/16/22 service: No Current occupational status: disabled Cognitive needs: No Hearing needs: No Vision needs: Yes Questionnaire Thrive Questionnaire Date Thrive assessed: 10/02/24 I am a: Parent/Caregiver What is your living situation today?: I choose not to answer this question Within the past 12 months, did the food you bought not last and you didn't have the money to get more?: I choose not to answer this question Within the past 12 months, did you worry whether your food would run out before you got money to buy more?: I choose not to answer this question Do you have trouble paying for medicines?: I choose not to answer this question Do you have trouble getting transportation to medical appointments?: I choose not to answer this question Do you have trouble paying your heating and electricity bill?: I choose not to answer this question Do you have trouble taking care of your child, family member or friend?: I choose not to answer this question Do you have trouble with day-to-day activities such as bathing, preparing meals, shopping, managing finances, etc.?: I choose not to answer this question Are you currently unemployed and looking for a job?: I choose not to answer this question Are you interested in more education?: I choose not to answer this question Please select the resources that you would like help with: None Currently or been in a relationship where the following occur: I choose not to answer THRIVE Score: 0 PATSY-7 AMB Questionnaire PATSY-7 Date PATSY - 7 assessed: 10/02/24 Source: Developed by Drs. Jimy Franco, Madison Berry, Tyler Guy and colleagues, with an educational herb from [employer]. Physical exam (Primary Care) Vital Signs: Last Vital Signs Temp 97.4 F 07/16/25 11:45 Pulse 74 07/16/25 11:45 Resp 16 07/16/25 11:45 Pulse Ox 92 07/16/25 11:45 Oxygen Delivery Method Room Air 07/16/25 11:45 BMI result Body Mass Index 32.5 Tobacco/Smoking Status: Tobacco use Status Tobacco use date assessed 12/20/24 07/16/25 11:47 Patient Tobacco Use Status Current everyday Tobacco 07/16/25 11:47 Tobacco use type Cigarette 07/16/25 11:47 e-Cigarette/Vaping Use Never Used 07/16/25 11:47 Thrive Assessment: Date of Thrive Assessment Date Thrive assessed 10/02/24 07/16/25 11:47 Currently or been in a relationship where the following occur: I choose not to answer Coding Level of Care Code Est Pt Level 4 (88255) Diagnoses Impaired mobility and ADLs Z74.09; Z78.9 Tinea corporis B35.4 Schizo-affective schizophrenia F25.9 Hypertension, essential I10 Osteoarthritis involving multiple joints on both sides of body M15.9 Dependent on walker for ambulation Z99.89 Assessment & Plan Assessment & Plan (1) Impaired mobility and ADLs: Code(s): Z74.09 - Other reduced mobility; Z78.9 - Other specified health status Category: Medical (2) Tinea corporis: Code(s): B35.4 - Tinea corporis Category: Medical (3) Schizo-affective schizophrenia: Code(s): F25.9 - Schizoaffective disorder, unspecified Category: Medical (4) Hypertension, essential: Code(s): I10 - Essential (primary) hypertension Category: Medical (5) Osteoarthritis involving multiple joints on both sides of body: Code(s): M15.9 - Polyosteoarthritis, unspecified Category: Medical (6) Dependent on walker for ambulation: Code(s): Z99.89 - Dependence on other enabling machines and devices Category: Medical Plan Need for Residency Coordinator Services / Functional Decline: - The patient requires a Residency Coordinator (SHADE HANGER) daily due to arthritis and balance issues, rendering him unable to fully care for himself. - The SHADE HANGER assists with cleaning the house, doing laundry, washing clothes, and preparing food. - He is dependent on a walker for ambulation. Schizophrenia: - The patient has a history of schizophrenia. Establish with psychiatrist Osteoarthritis: - The patient has a history of multiple joint osteoarthritis. Drug Allergy: - The patient has a known allergy to lipidol, which causes LFT elevation. Medical History: - Schizophrenia - Multiple joint osteoarthritis - Balance impairment - Allergy to lipidol with resulting LFT elevation Problem List - Multiple joint osteoarthritis - Schizophrenia - Balance issues with walker dependence - Allergy to lipidol - Administrative visit: Completion of paperwork for Residency Coordinator services - groin rash chronic Plan - The necessary paperwork for the patient's Residency Coordinator services will be completed and sent. - cream sent for tinea corporis Medications: New ketoconazole 2% 1 appl topical .Q.h.s. 60 grams 1RF Groin rash 30 days
--- OUTSIDE RECORDS SUMMARY | 2025-07-16 15:07 | XMS_ITS | Patient Health Record ---
Author Organization [facility] Address [address] [facility] [place] [address] Care Team Providers Care Weight Yardage Checker Name Role Phone Raphael GEE, [facility] Primary Care Provider Eva Aguayo Unavailable [phone] Allergies Allergen (clinical drug ingredient) Drug/Non Drug [...] Active Gocovri Active ReVia Active PriLOSEC Active [place] 3 1000 MG 1 capsule Orally Thr [...] Problem Acquired hammer toe of right foot (0899511432224 105) Other hammer toe(s) (acquired), right foot (M20.41) Active confirmed Problem Acquired hammer toe of left foot (9773064833552 103) Other hammer toe(s) (acquired), left foot (M20.42) Active confirmed Problem Plantar wart (62912563) Plantar wart (B07.0) Active confirmed Problem Arthritis of left ankle due to trauma (7807363027952 9102) 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) Active confirmed Vital Signs Blood pressure diastolic 80 mm Hg 04/25/2025 Height 5ft9in in 04/25/2025 Blood pressure systolic 143 mm Hg 04/25/2025 Weight 224 lbs 04/25/2025 BMI 33.08 kg/m2 04/25/2025 Encounters Encounter Location Date Provider Diagnosis [facility] [address] 02/12/2025 Eva Campbell Onychomycosis B35.1 ; Other hammer toe(s) (acquired), right foot M20.41 ; Pain in right toe(s) M79.674 ; Pain in left toe(s) M79.675 ; Right foot pain M79.671 ; Plantar wart B07.0 and Other hammer toe(s) (acquired), left foot M20.42 [facility] [address] [address] [place] [address] 04/25/2025 Eva Campbell Other hammer toe(s) (acquired), [...] Grullon Jose grullon, 07/18/2025 12:00:00 PM, [address] [facility], [place], [address], Insurance Providers Payer Name Payer Address Payer Phone Subscriber Number Group Number Insured Name Patient Relationship to Insured Coverage Start Date Coverage End Date Medicare National [employer] [address] [place] [address] [id number] Robb Rene Self - patient is the insured 0 Medical (General) History Medical History History ICD Code Anxiety Arthritis Back,Hip,and Knee pain CAD (Cholesterol) Cataracts Depression Hiatal hernia High Blood Pressure Psychiatric disorder Reflux ( GERD) Sinusitis Sickle cell disease Surgical History Surgery Date(Month/Year) hernia surgery 02/09 cataract surgery face surgery
--- OUTSIDE RECORDS SUMMARY | 2025-07-16 15:07 | XMS_ITS | Patient Health Record ---
Author Organization [facility] Address [address] [place] [address] Care Team Providers Care Migration Agent Name Role Phone Raphael GEE, [facility] Primary Care Provider Jimy Pandya Unavailable [phone] Tata Osorio Unavailable Unavailable Allergies Allergen (clinical [...] TAKE 1 TABLET BY MOUTH DAILY Orally Daily; Duration: 30 days Active Dutasteride 0.5 MG 1 capsule Orally Onc e a day Active Multi Vitamin/Minerals - 1 Orally QD Active Vitamin D-3 Active [place] 3 1000 MG 1 capsule Orally Onc e a day Active [place] Carbonate ER 300 MG 3 tablet at [...] Problem Status W/U Status Risk Notes Problem Gastroesophageal reflux disease without esophagitis (243380123) Gastroesophageal reflux disease without esophagitis (K21.9) Active confirmed Problem Iron deficiency anemia due to chronic blood loss (290992760) Iron deficiency anemia due to chronic blood loss (D50.0) Active confirmed Problem Dysphagia (57508821) Pharyngoesophageal dysphagia (R13.14) Active confirmed Problem Iron deficiency anemia (35318465) Iron deficiency anemia, unspecified iron deficiency anemia type (D50.9) Active confirmed Problem Anemia (083672464) Anemia, unspe cified type (D64.9) Active confirmed Problem Gastroesophageal reflux disease with esophagitis (disorder) (277993043) Gastroesophageal reflux disease with esophagitis without hemorrhage [...] OF [place] [address] [place] [address] [phone] [id number] KATHLEEN DESIR Self - patient is the insured MEDICAID OF [employer] [facility] [address] [place] [address] [id number] KATHLEEN DESIR Self - patient is the insured Medical (General) History Medical History History ICD Code Denies [place],DM,CVA,renal disease Chronic dysphagia--he had a normal upper [...]
== END 2025-07-16 13:13 | disposition home or self-care (01) ==
LOC: HO.HMCC 11:45
PROVIDERS: PCP Internal Medicine; Visit Provider Internal Medicine
DX: Z74.09 Other reduced mobility (principal); Z78.9 Other specified health status; B35.4 Tinea corporis; F25.9 Schizoaffective disorder, unspecified; I10 Essential (primary) hypertension; M15.9 Polyosteoarthritis, unspecified; Z99.89 Dependence on other enabling machines and devices

== ENCOUNTER → 2025-07-16 11:44 | Outpatient (BNVA) | payer MEDICARE, MEDICAID, SELFPAY | PROVIDERS: PCP Internal Medicine; Visit Provider Internal Medicine | DX: Z74.1 Need for assistance with personal care (principal); Z74.09 Other reduced mobility; Z78.9 Other specified health status; B35.4 Tinea corporis; F25.9 Schizoaffective disorder, unspecified; I10 Essential (primary) hypertension; M15.9 Polyosteoarthritis, unspecified; Z99.89 Dependence on other enabling machines and devices | CPT/HCPCS: 99212 ==

== ENCOUNTER 2025-07-23 14:45 | Outpatient (AMB) | payer MEDICARE, MEDICAID, SELFPAY ==
--- OUTSIDE RECORDS SUMMARY | 2025-07-18 07:00 | XMS_ITS ---
[facility] Address [address] [place] [place] [address] Care Team Providers Care Fashion Adviser Name Role Phone Raphael GEE, [facility] Primary [facility] Provider Eva Aguayo Unavailable [phone] Allergies Allergen (clinical drug ingredient) Drug/Non Drug Allergy documented on EMR Reaction Allergy Type Onset Date Status atorvastatin Lipitor increases LFTs Drug Allergy Active REASON FOR VISIT Painful nail(s) aggravated by shoes causing difficulty standing/walking, Wart(s) Medications Medication SIG (Take, Route, Frequency, Duration) Notes Start Date End Date Status risperiDONE 2 MG TAKE 1 TABLET BY RENÉE DAILY NEEDED FOR ANXIETY OR AGITATION Oral; Duration: 30 Days Active Terazosin HCl 5 MG Oral; Duration: 90 Days Active RisperDAL Consta 50 MG Intramuscular; Du ration: 28 Days Active Avodart 0.5 MG 1 capsule Orally Once a day Active Ferrous Sulfate 325 (65 Fe) MG 1 tablet Orally Three times a Week 11/19/2024 Active Gocovri Active Flovent HFA Active Lopid 600 MG 1 tablet 30 minutes before morning and evening meals Orally Twice a day Active Levoxyl 112 MCG 1 tablet in the morn ing on an empty stomach Orally Once a day Active Flomax Active Norvasc 5 MG 1 tablet Orally Once a day 11/19/2024 Active Melatonin 5 MG 1 tablet in the even ing Orally Once a day 11/19/2024 Active PriLOSEC Active Beaumont 3 1000 MG 1 capsule Orally Thr ee times a day 11/19/2024 Active ReVia Active Zetia 10 MG 1 tablet Orally Once a day 11/19/2024 Active Vitamin D3 Active Bactrim 400-80 MG 1 tablet Orally Once a day Active Tylenol Active RisperDAL Consta 50 MG as directed Intramuscular 0 11/19/2024 Active Paxil 20 MG 1 tablet in the morn ing Orally Once a day Active Social History Tobacco Use: Social History [...] ast year? No Points 0 Interpretation Negative Vital Signs Height 5ft9in in 07/18/2025 Weight 225 lbs 07/18/2025 BMI 33.22 kg/m2 07/18/2025 Blood pressure systolic 124 mm Hg 07/18/20 25 Blood pressure diastolic 78 mm Hg 025 Encounters Encounter Location Date Provider Diagnosis [facility] [address] [place] [address] 07/18/2025 Eva Campbell Onychomycosis B35.1 ; Plantar wart B07.0 ; Pain in right toe(s) M79.674 ; Pain in left toe(s) M79.675 and Right foot pain M79.671 Assessments Encounter Date Diagnosis (ICD Code) Assessment Notes Treatment Notes Treatment Clinical Notes Section Notes 07/18/2025 Onychomycosis (ICD-10 - B35.1) 07/18/2025 Plantar wart (ICD-10 - B07.0) 07/18/2025 Pain in right toe(s) (ICD-10 - M79.674) 07/18/2025 Pain in left toe(s) (ICD-10 - M79.675) 07/18/2025 Right foot pain (ICD-10 - M79.671) Plan Of Treatment Next Appt Details Follow Up: 3 Months, Reason: Provider Name:Eva grullon, 10/15/2025 02:45:00 PM, [address] [place], [address], Procedure Notes * Category Sub-Category Detail Notes Wart Treatment Procedure Verruca, as desc ribed in exam, were debrided to pin-point bleeding margins with sterile 15 surgical blade, silver nitrate chemocautery applied, recomm. immune-boosting meds such as zinc, recomm. follow up with topical chemosurgical agents, Pt defers any other forms of tx - 04800 Debride Nail 6-10 Nail debridement Due to the cl inical pathology outlined in the exam findings, performance of this nail treatment is medically necessary as its management by an unskilled/untrained nonprofessional would put this patients foot and overall health at risk. Therefore, debridement to affected nail(s), as described in exam ( TA, T1, T2, T3, T4, T5, T6, T7, T8, T9, ), was performed exclusively by the physician of record to reduce/remove overall nail length, girth, thickness, subungual debris, and necrotic tissue, by manual and/or electrical means through the use of a nail nipper and/or dremel-type carbide grinder, to a more viable healthy nail plate or bed tissue 6-10 nails in total. Silver nitrate was used for any petechial bleeding as necessary. Definitive antifungal treatment options, both pharmaceutical and surgical, have been reviewed and discussed with the patient. The patient solely prefers the use of intermittent/as needed professional debridement services for their nail condition and understands the need for additional periodic treatments to maintain effectiveness in symptomatic relief - 21746 Progress Notes * Robb DESIR JDOB:1960 (64 yo M)Acc No.[id number]:07/18/2025 Progress Note Patient: Robb SOLOMON Provider: Miles Campbell DPM :1960 A ge:64 Y S ex:Male Date:07/18/2025 Address:[address] [place] [address] Pcp:Binh Lim MD Subjective: * Chief Complaints: * P ainful nail(s) aggravated by shoes causing difficulty standing/walkingWart(s) * HPI: P ainful Nails: Pt States Last PCP Visit: D ate: 1 S kin problems: Pt States PCP Visit: D ATE 1 * ROS: G eneral/Constitutional: Nausea d enies. V omiting d enies. H jadyn Thirst a dmits. L oss appetite d enies. C hills d enies. F atigue d enies.?Fever d enies. N ight Sweats d enies. U nexplained weight loss d enies. U nexplained weight gain d enies. H EENTM: Dentures d enies. D izziness d enies. G lasses/contacts a dmits. R etinopathy d enies. B lurred/double vision a dmits. T MJ?denies. D ischarge/drainage d enies. I mplants d enies. S ore throat d enies. D ental implants d enies. H sera of hearing d enies. D ifficulty chewing/swallowing/speaking a dmits. N ose bleeds d enies. S ore mouth d enies. ? R espiratory: On Oxygen d enies. P neumonia/pleurisy d enies.?Bronchitis d enies. E mphysema d enies. C oughing a dmits. C ough blood?denies. S hortness of breath a dmits. W heezing d enies. C ardiovascular: Pacemaker d enies. M SWITCH INSPECTOR d enies. W PW d enies. C HF d enies. H eart attack d enies. S eptal defect d enies. R apid beat d enies. C hest pain d enies. A trial Fib. d enies. M urmur/Palpitations d enies. G astrointestinal: Hemorrhoids d enies. S tomach/Abdominal pain a dmits. D ark blood stool d enies. I rritable bowel d enies. C onstipation d enies. D iarrhea d enies. H ematology: Swelling d enies. C lots d enies. V aricose Veins d enies. B ruising d enies. B leeding problem d enies. G enitourinary: Blood urine d enies. F requent/Painfu/urination/bladder control d enies. K idney stones d enies. I nfection (UTI) d enies. N ephropathy d enies. s ex trans dis (STD) d enies. P rostate d enies. M usculoskeletal: Hammertoes d enies. B unions d enies. B ack Pain d enies. M uscle Cramps/ Resting d enies. M uscle cramps / walking a dmits.?Generalized aches and pains a dmits. W eakness d enies. I nteg.: Macario d enies. S cars d enies. C orns/calluses?admits. I ngrown nails a dmits. P ainful nails a dmits. O pen Sores d enies. R ashes d enies. N eurologic: Difficulty sleeping a dmits. B rain disorder d enies. N umbness d enies. B alance trouble a dmits. C onfusion a dmits. F ainting/blackouts d enies. T ingling d enies. T remors d enies. * Medical History: * Surgical History: h ernia surgery 02/09cataract surgery face surgery * Hospitalization/Major Diagno stic Procedure: D enies Past Hospitalization * Family History: M other: . F ather: . * Social History: T obacco Use: T obacco use other than smoking A re you an other tobacco user? N o Tobacco Control (Standard) T obacco use: C urrent every day smoker W hen did you start smoking? 0 01/16/1985 A dditional Findings: Tobacco user M oderate cigarette smoker (10-19 cigs/day) M iscellaneous: C affeine: yes, frequency: 3 -4 cups per day. Children: yes. Exercise: no. Marital status: Single. Occupation: Retired. D rug/Alcohol: A ELIGIO-C (Standard) D id you have a drink containing alcohol in the past year? N o P oints 0 I nterpretation N egative * Medications: T akingPaxil 20 MG Tablet 1 tablet in the morning Orally Once a day Bactrim 400-80 MG Tablet 1 tablet Orally Once a day Zetia 10 MG Tablet 1 tablet Orally Once a day Vitamin D3 Tylenol RisperDAL Consta 50 MG Suspension Reconstituted ER as directed Intramuscular ReVia PriLOSEC Beaumont 3 1000 MG Capsule 1 capsule Orally Three times a day Norvasc 5 MG Tablet 1 tablet Orally Once a day Melatonin 5 MG Tablet 1 tablet in the evening Orally Once a day Lopid 600 MG Tablet 1 tablet 30 minutes before morning and evening meals Orally Twice a day Levoxyl 112 MCG Tablet 1 tablet in the morning on an empty stomach Orally Once a day Gocovri Flovent HFA Flomax Ferrous Sulfate 325 (65 Fe) MG Tablet 1 tablet Orally Three times a Week Avodart 0.5 MG Capsule 1 capsule Orally Once a day Terazosin HCl 5 MG Capsule Oral RisperDAL Consta 50 MG Suspension Reconstituted ER Intramuscular risperiDONE 2 MG Tablet TAKE 1 TABLET BY MOUTH DAILY NEEDED FOR ANXIETY OR AGITATION Oral Medication List reviewed and reconciled with the patientTaking Paxil 20 MG Tablet 1 tablet in the morning Orally Once a day Taking Bactrim 400-80 MG Tablet 1 tablet Orally Once a day Taking Zetia 10 MG Tablet 1 tablet Orally Once a day Taking Vitamin D3 Taking Tylenol Taking RisperDAL Consta 50 MG Suspension Reconstituted ER as directed Intramuscular Taking ReVia Taking PriLOSEC Taking Beaumont 3 1000 MG Capsule 1 capsule Orally Three times a day Taking Norvasc 5 MG Tablet 1 tablet Orally Once a day Taking Melatonin 5 MG Tablet 1 tablet in the evening Orally Once a day Taking Lopid 600 MG Tablet 1 tablet 30 minutes before morning and evening meals Orally Twice a day Taking Levoxyl 112 MCG Tablet 1 tablet in the morning on an empty stomach Orally Once a day Taking Gocovri Taking Flovent HFA Taking Flomax Taking Ferrous Sulfate 325 (65 Fe) MG Tablet 1 tablet Orally Three times a Week Taking Avodart 0.5 MG Capsule 1 capsule Orally Once a day Taking Terazosin HCl 5 MG Capsule Oral Taking RisperDAL Consta 50 MG Suspension Reconstituted ER Intramuscular Taking risperiDONE 2 MG Tablet TAKE 1 TABLET BY MOUTH DAILY NEEDED FOR ANXIETY OR AGITATION Oral Medication List reviewed and reconciled with the patient * Allergies: L ipitor: increases LFTsyes[Allergies Verified] Objective: * Vitals: H t: 5ft9in, Wt:225, BMI:33.22, Shoe size: 12W, BP:124/78mm Hg, Ht-cm: 175.26 cm, Wt-k.06 kg. * Examination: N ails: NAILS are: E longated, overgrown, dystrophic, lytic, greater than 3mm thick, discolored and friable with crumbly malodorous subungual debris, with pain on palpation, TA, T1, T2, T3, T4, T5, T6, T7, T8, T9. G eneral Examination: GENERAL APPEARANCE: Caitlin correa a pleasant, alert, well-nourished, well-developed, well hydrated individual, who demonstrates proper attention to hygiene/body habitus, and is in no acute distress, Pt serves as own h istorian for office visit today. ORIENTED: p erson, place, and time. N eurological: SENSORY: N eurological exam reveals intact sensorium, pain sensation normal, vibration sensation intact, pinprick sensation is normal in the lower extremities, Pt denies, anesthesia, burning, paresthesia, tingling, B/L. V ascular: DP PULSES (B): 3 /4, B/L. PT PULSES (B): 3 /4, B/L. CAPILLARY FILL TIME: i mmediate, all digits, B/L. TROPHIC CONDITION-TEXTURE/ELASTICITY/TURGOR/HAIR GROWTH (B):?normal, B/L. TEMPERTURE GRADIENT (C): w arm to cool, proximal to distal, B/L. PIGMENTATION: n ormal, B/L. EDEMA (C): a bsent, B/L. D ermatologic: SKIN FINDINGS: S kin exam reveals Keratotic lesion(s) located at, Medial plantar, IPJ, TA, T5, SUB MTH (s), 1, 5, B/L. VERRUCA: R eveals Multiple ( 2 ), multi-loculated , mosaic-patterned, round, raised, flat-topped, petechial bleeding papule(s), with cauliflower appearance and interruption of skin lines, with pain to lateral compression, and size estimated at 7 mm diameter, plantar Forefoot, RIGHT. O rthopedic: MUSCLE STRENGTH: 5 /5 all groups in a symmetrical fashion , B/L. FOOTWEAR EVALUATION: w orn, non-supportive, shoe gear properties exacerbate patient's foot/toe deformity. Assessment: * Assessment: 1. P lantar wart - B07.0 (Primary) 2 . O nychomycosis - B35.1 ?3. P ain in right toe(s) - M79.674 4 . P ain in left toe(s) - M79.675? 5. R ight foot pain - M79.671 Plan: * Treatment: * Procedures: D ebride Nail 6-10: Nail debridement D ue to the clinical pathology outlined in the exam findings, performance of this nail treatment is medically necessary as its management by an unskilled/untrained nonprofessional would put this patients foot and overall health at risk. Therefore, debridement to affected nail(s), as described in exam ( TA, T1, T2, T3, T4, T5, T6, T7, T8, T9, ), was performed exclusively by the physician of record to reduce/remove overall nail length, girth, thickness, subungual debris, and necrotic tissue, by manual and/or electrical means through the use of a nail nipper and/or dremel- type carbide grinder, to a more viable healthy nail plate or bed tissue 6-10 nails in total. Silver nitrate was used for any petechial bleeding as necessary. Definitive antifungal treatment options, both pharmaceutical and surgical, have been reviewed and discussed with the patient. The patient solely prefers the use of intermittent/as needed professional debridement services for their nail condition and understands the need for additional periodic treatments to maintain effectiveness in symptomatic relief - 86525. W art Treatment: Procedure V erruca, as described in exam, were debrided to pin-point bleeding margins with sterile 15 surgical blade, silver nitrate chemocautery applied, recomm. immune-boosting meds such as zinc, recomm. follow up with topical chemosurgical agents, Pt defers any other forms of tx - 65947. * Procedure Codes: 1 1721 DEBRIDE NAIL, 6 OR MORE, Modifiers: XS 14555 Wart Destruction, 1-14, Modifiers: XS * Preventive Medicine: Counseling: T obacco use: Patient counseled on the dangers of smoking and urged to quit: 1 Screening/Special Tests: F all Risk Screening: N o falls in the past year F ALLS: Screening for Future Fall Risk Have you had any falls with injury in the past year? N o * Follow Up: 3 Months * Images: * Sign off status: Completed true * Provider: Miles Campbell, DPM Date: Generated for Casey garrett/Kristy/eTjuan josé on: 09/22/2024 05:52 PM EST History and Physical Notes * HPI (History of Present Illness) Category Sub-Category Detail Notes Category Not es Painful Nails Pt States Last PCP Visit: Date:: 07/09/2025 Skin problems Pt States PCP Visit: DATE: 07/09/2025 Examination Category Sub-Category Detail Notes Category Not es Neurological SENSORY: Neurological exa m reveals intact sensorium, pain sensation normal, vibration sensation intact, pinprick sensation is normal in the lower extremities, Pt denies, anesthesia, burning, paresthesia, tingling, B/L Dermatologic SKIN FINDINGS: Skin exam reveal s Keratotic lesion(s) located at, Medial plantar, IPJ, TA, T5, SUB MTH (s), 1, 5, B/L VERRUCA: Reveals Multiple ( 2 ), multi-loculated , mosaic-patterned, round, raised, flat-topped, petechial bleeding papule(s), with cauliflower appearance and interruption of skin lines, with pain to lateral compression, and size estimated at 7 mm diameter, plantar Forefoot, RIGHT Orthopedic FOOTWEAR EVALUATION: worn, non-s upportive, shoe gear properties exacerbate patient's foot/toe deformity MUSCLE STRENGTH: 5/5 all groups in a symmetrical fashion , B/L General Examination GENERAL APPEARANCE: Reveals a pleasant, alert, well- nourished, well-developed, well hydrated individual, who demonstrates proper attention to hygiene/body habitus, and is in no acute distress, Pt serves as own historian for office visit today ORIENTED: person, place, and t [facility] DP PULSES (B): 3/4, B/L PT PULSES (B): 3/4, B/L CAPILLARY FILL TIME: immediate, all digi ts, B/L TEMPERTURE GRADIENT (C): warm to cool, p roximal to distal, B/L TROPHIC CONDITION-TEXTURE/ELASTICITY/TURGOR/HAIR GROWTH (B): normal, B/L EDEMA (C): absent, B/L PIGMENTATION: normal, B/L Nails NAILS are: Elongated, overg rown, dystrophic, lytic, greater than 3mm thick, discolored and friable with crumbly malodorous subungual debris, with pain on palpation, TA, T1, T2, T3, T4, T5, T6, T7, T8, T9
--- NOTE | 2025-07-23 14:48 | MHC.OFFVIS ---
Intake Visit Reasons: BPH follow up/PVR Intake Note: Patient is present for BPH/PVR Urology Medication:TERAZOSIN Antibiotic Allergy:ATORVASTATIN Blood Thinner:NONE TODAY'S PVR:159ML'S Contact Center Associate Required: No Allergies atorvastatin (From LIPITOR) Allergy (Unknown, Verified 07/23/25 15:21) HIGH LFTS Medication List - Last Reconciled 07/23/25 by ALIE ReeseP- cholecalciferol (vitamin D3) 50 mcg PO DAILY 90 days dutasteride 0.5 mg PO DAILY 90 days ezetimibe (Zetia) 10 mg PO DAILY ferrous sulfate 325 mg PO DAILY fluticasone furoate 200 mcg/actuation (Arnuity Ellipta) 1 inh inhalation Q24H gabapentin 300 mg PO BID ketoconazole 2% 1 appl topical .Q.h.s. 30 days levothyroxine 112 mcg PO DAILY@0600 lorazepam (Ativan) 0.5 mg PO DAILY PRN naltrexone 50 mg PO DAILY nystatin 1 appl topical DAILY 30 days omega 5-oad-sai-fish oil 300 mg (120 mg- 180mg)-1,000 mg 1 cap PO BID omega 1-jnw-zui-fish oil 300-1,000 mg 1 cap PO BID 90 days omeprazole 20 mg PO DAILY@0630 paroxetine HCl (Paxil) 20 mg PO DAILY quetiapine (Seroquel) 50 mg PO BEDTIME risperidone (Risperdal) 2 mg PO DAILY PRN risperidone microspheres ER 50 mg (2 mL) IM Q2W terazosin 5 mg PO BEDTIME 30 days HPI Comments Details: Robb is a 64-year-old male patient of Dr. Lim who was accompanied by his CHD worker at today's office visit. He has a past medical history of hypertension, schizoaffective schizophrenia, chronic lymphatic leukemia, basal cell carcinoma excision in 2011 to the right cheek, nicotine dependence, vitamin-D deficiency, alcoholic liver disease, depression, obesity, BPH, COPD, lipid disorder, chronic GERD, and hypothyroidism. He presents to the office today for follow-up of his lower urinary tract symptoms. Of note, patient was seen approximately 3 months ago at which time he was treated with Bactrim for presumed urinary tract infection given lower urinary tract symptoms as well as urinalysis that noted 3+ leukocytes. In discussion with the patient today he reports having completed Bactrim as prescribed. He does continue to report compliance with dutasteride and terazosin as prescribed. In office urinalysis results reviewed with the patient today. PVR 159 mL. He does report labile/variable episodes of feeling of incomplete bladder emptying and straining with urination. We did discussed further treatment options and risks and benefits of these treatment options. He otherwise denies urinary urgency, urinary frequency, incontinence, hematuria, foul smelling urine, flank pain, fever, and or chills. PSAs are as follows: PSA 12/04 .4, 12/08 0.3, 05/12 0.3 Urine Culture: 05/12 > 100,000 cfu/ml Mixed bacterial danni characteristic of urogenital contamination. He otherwise offers no other issues or concerns at this time. PREVIOUS OFFICE NOTE: Accompanied by a wirer Last PVR 600 cc, Current PVR 200 Continue with Flomax 0.8 mg and dutasteride Six-month follow-up PVR nurse-practitioner Lower urinary tract symptoms Background of psychiatric medications with risperidone, lithium Has been Flomax 0.4 mg and dutasteride Increase Flomax to 0.8 PSA 12/08 0.3 PFSH Medical History Aortic stenosis Hx of transfusion of packed red blood cells Cough Sleep apnea Murmur Umbilical hernia History of basal cell carcinoma (BCC) Nicotine dependence, cigarettes, uncomplicated Schizo-affective schizophrenia CLL (chronic lymphocytic leukemia) Hypertension, essential Hypercalcemia due to lithium Non-toxic multinodular goiter Vitamin D deficiency 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 Alcoholic liver disease Depression, major, recurrent Thrombocytosis Obesity BPH (benign prostatic hyperplasia) COPD (chronic obstructive pulmonary disease) Lipid disorder Chronic GERD Hypothyroidism Surgical History History of left cataract surgery History of esophagogastroduodenoscopy (EGD) History of colonoscopy History of basal cell carcinoma (BCC) excision History of surgery History of hernia repair Family History Father HTN (hypertension) CVD (cardiovascular disease) Sister AIDS Maternal Grandfather Unknown family medical history Maternal Grandmother Unknown family medical history Paternal Grandfather Unknown family medical history Paternal Grandmother Unknown family medical history Sister No problems noted. Sister No problems noted. Sister No problems noted. Social History Household Members: None Housing: Apartment Are you a primary primary care pediatrician to a significant other at home: No Do you presently have visiting nurse or other home services: Yes ([facility] program per pt) Alcohol intake: former Comment: restraints Patient Tobacco Use Status: Current everyday Tobacco user Tobacco use type: Cigarette Cigarette Packs Per Day: 1 Cigarettes Per Day: 20.0 e-Cigarette/Vaping Use: Never Used Substance Use Type: Marijuana Advance Directives Date on File: 08/16/22 service: No Current occupational status: disabled Cognitive needs: No Hearing needs: No Vision needs: Yes Review of Systems Const All systems reviewed & are unremarkable except as noted in HPI and below Physical Exam Const General: cooperative, healthy appearing, comfortable, no acute distress, well developed, alert and awake Orientation/consciousness: patient oriented x3 Limitations: ambulation with walker HEENT Head: Yes normal to inspection, Yes normocephalic and Yes atraumatic Ears: hearing grossly normal bilaterally Eyes General: appearance normal, both eyes and all related structures Neck Neck: Yes normal visual inspection and Yes trachea midline Chest Chest palpation & inspection: normal inspection of the chest Resp Effort & Inspection: normal respiratory effort and able to speak in complete sentences Cardio Rate: regular rate GI Inspection: Yes normal to inspection General: Yes no CVA tenderness Back/Spine/Pelvis Back: no CVA tenderness Skin General skin exam: no rashes or lesions noted Neuro General: patient oriented x3 Extrem General: Yes normal to inspection Psych Appearance: grossly normal and well kempt Mental Status: mental status grossly normal Speech and movement: Normal speech and movement present and Clear speech present Affect: normal affect Attitude: cooperative Thought process: Normal thought process present Thought content: Normal thought content present Insight: Limited insight present (Psych) and Poor insight present (Psych) Judgement: Limited judgement present (Psych) and Poor judgement present (Psych) Office Procedures Post Void Residual Post Residual Void Post Void Residual (PVR): 159 [id number] Void Residual by ultrasound Results AMB Urinalysis, Automated UA Leukoctes 0 Donell/uL Last Edit by LUIS Stephens on 07/23/25 15:17 UA Nitrite Negative Last Edit by LUIS Stephens on 07/23/25 15:17 UA Urobilinogen 0.2 mg/dL Last Edit by Bailey Mckeon [facility] on 07/23/25 15:17 UA Protein 30 mg/dL Last Edit by Bailey Mckeon [facility] on 07/23/25 15:17 UA pH 6.0 Last Edit by Bailey Mckeon [facility] on 07/23/25 15:17 UA Blood 0 Jack/uL Last Edit by Bailey Mckeon [facility] on 07/23/25 15:17 UA Specific [place] 1.015 Last Edit by Bailey Mckeon [facility] on 07/23/25 15:17 UA Ketone Negative Last Edit by Bailey Mckeon [facility] on 07/23/25 15:17 UA Bilirubin 0 mg/dL Last Edit by Bailey Mckeon [facility] on 07/23/25 15:17 UA Glucose 0 mg/dL Last Edit by Bailey Mckeon [facility] on 07/23/25 15:17 Results Reviewed Results Reviewed: Laboratory Last Values Urine pH (Auto) 6.0 07/23/25 15:16 Specific [place] (Auto) 1.015 07/23/25 15:16 Urine Protein (Auto) 30 mg/dL 07/23/25 15:16 Glucose (UA)(Auto) 0 mg/dL 07/23/25 15:16 Urine Ketones (Auto) Negative 07/23/25 15:16 Urine Blood (Auto) 0 Jack/uL 07/23/25 15:16 Urine Nitrite (Auto) Negative 07/23/25 15:16 Urine Bilirubin (Auto) 0 mg/dL 07/23/25 15:16 Urine Urobilinogen (Auto) 0.2 mg/dL 07/23/25 15:16 Leukocyte Esterase (Auto) 0 Donell/uL 07/23/25 15:16 Assessment & Plan Assessment & Plan (1) Weak urinary stream: Code(s): R39.12 - Poor urinary stream Category: Medical (2) BPH (benign prostatic hyperplasia): Code(s): N40.0 - Benign prostatic hyperplasia without lower urinary tract symptoms Category: Medical Qualifiers: Lower urinary tract symptom detail: urinary frequency Lower urinary tract symptom presence: symptoms present Qualified Code(s): N40.1 - Benign prostatic hyperplasia with lower urinary tract symptoms; R35.0 - Frequency of micturition (3) Incomplete emptying of bladder due to benign prostatic hyperplasia: Code(s): N40.1 - Benign prostatic hyperplasia with lower urinary tract symptoms; R33.9 - Retention of urine, unspecified Category: Medical (4) Urinary tract infection: Code(s): N39.0 - Urinary tract infection, site not specified Category: Medical (5) Dysuria: Code(s): R30.0 - Dysuria Category: Medical Plan In office urinalysis results reviewed with the patient today; as noted above. PVR 159 mL previously 453 mL. Continue terazosin as discussed and prescribed. Will continue with surveillance monitoring at this time. Most recent PSA results reviewed with the patient today; as noted above. . We discussed potential causes of incomplete bladder emptying as well as urinary tract infection We did discussed further treatment options of incomplete bladder emptying. Recent PSA results reviewed with the patient today; as noted above. We discussed importance of limiting/quitting nicotine dependence for overall health and well-being. Follow-up in 6 months with PVR; or sooner with any issues, concerns, and or questions. Orders: Orders AMB Urinalysis Automated Today Z13.9 - Encounter for screening, unspecified Patient Instructions: The patient had an opportunity to ask questions regarding the treatment plan. All questions were answered. Physical exam, labs, and imaging were discussed and reviewed in detail. As well as risks, benefits, and discussion of treatment choices. No major barriers to understanding were identified. The patient expressed understanding and agreement with the above treatment plan. The patient was made aware they should contact our office by phone for worsening of their current condition, the appearance of new symptoms, or with any questions or concerns. Compliance is encouraged with any medications and follow up testing that is ordered. It is a privilege to be allowed the opportunity to participate in? your urological care.? Again, if you have any questions or concerns If you have any questions or concerns please do not hesitate to contact me. The office is [phone]. This note is constructed using voice recognition software. While every effort has been made to ensure accuracy monumental stonemason errors may have been included. Yours sincerely, SHERIN Reese Coding Level of Care Code Est Pt Level 3 (82450) Complex EM visit Add On G2211 Diagnoses Weak urinary stream R39.12 Benign prostatic hyperplasia with urinary frequency N40.1; R35.0 Lower urinary tract symptom detail: urinary frequency Lower urinary tract symptom presence: symptoms present Incomplete emptying of bladder due to benign prostatic hyperplasia N40.1; R33.9 Urinary tract infection N39.0 Dysuria R30.0 CPT Codes Post Residual Void - PVR CPT Code: 94224-Rpvt Void Residual by ultrasound ([id number])
--- OUTSIDE RECORDS SUMMARY | 2025-07-23 17:52 | XMS_ITS | Patient Health Record ---
Author Organization [facility] Address [address] [place] [address] Care Team Providers Care Industrial Equipment Wirer Name Role Phone Raphael GEE, [facility] Primary Care Provider Eva Aguayo Unavailable [phone] Allergies Allergen (clinical drug ingredient) Drug/Non Drug Allergy documented on EMR Reaction Allergy Type Onset Date Status atorvastatin Lipitor increases LFTs Drug Allergy Active Reason For Referral No Information Medications Medication SIG (Take, Route, Frequency, Duration) Notes Start Date End Date Status Avodart 0.5 MG 1 capsule Orally Once a day Active Zetia 10 MG 1 tablet Orally Once a day 11/19/2024 Active Gocovri Active Vitamin D3 Active Flovent HFA Active Paxil 20 MG 1 tablet in the morn ing Orally Once a day Active Lopid 600 MG 1 tablet 30 minutes before morning and evening meals Orally Twice a day Active Bactrim 400-80 MG 1 tablet Orally Once a day Active Levoxyl 112 MCG 1 tablet in the morn ing on an empty stomach Orally Once a day Active Norvasc 5 MG 1 tablet Orally Once a day 11/19/2024 Active risperiDONE 2 MG TAKE 1 TABLET BY RENÉE TH DAILY NEEDED FOR ANXIETY OR AGITATION Oral; Duration: 30 Days Active Melatonin 5 MG 1 tablet in the even ing Orally Once a day 11/19/2024 Active PriLOSEC Active Terazosin HCl 5 MG Oral; Duration: 90 Days Active [place]wood 3 1000 MG 1 capsule Orally Thr ee times a day 11/19/2024 Active RisperDAL Consta 50 MG Intramuscular; Du ration: 28 Days Active ReVia Active Tylenol Active Flomax Active RisperDAL Consta 50 MG as directed Intramuscular 0 11/19/2024 Active Ferrous Sulfate 325 (65 Fe) MG 1 tablet Orally Three times a Week 11/19/2024 Active Immunizations Vaccine Route Administration Date Status Comme nts Influenza Unknown 05/19/2024 Administered Influenza Unknown 05/19/2025 Administered Social History Tobacco Use: Social History [...] Problem Acquired hammer toe of right foot (3911227375994 105) Other hammer toe(s) (acquired), right foot (M20.41) Active confirmed Problem Acquired hammer toe of left foot (4384047522488 103) Other hammer toe(s) (acquired), left foot (M20.42) Active confirmed Problem Plantar wart (32450591) Plantar wart (B07.0) Active confirmed Problem Arthritis of left ankle due to trauma (9605786828486 9102) 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) Active confirmed Vital Signs Blood pressure diastolic 78 mm Hg 07/18/2025 Height 5ft9in in 07/18/2025 Blood pressure systolic 124 mm Hg 07/18/2025 Weight 225 lbs 07/18/2025 BMI 33.22 kg/m2 07/18/2025 Encounters Encounter Location Date Provider Diagnosis [facility] [place] [address] [place] [address] 02/12/2025 Eva Campbell Onychomycosis B35.1 ; Other hammer toe(s) (acquired), right foot M20.41 ; Pain in right toe(s) M79.674 ; Pain in left toe(s) M79.675 ; Right foot pain M79.671 ; Plantar wart B07.0 and Other hammer toe(s) (acquired), left foot M20.[address] [facility] [address] 04/25/2025 Eva Campbell Other hammer toe(s) (acquired), right foot M20.41 ; Post-traumatic arthritis of left ankle M19.172 ; Onychomycosis B35.1 ; Pain in right toe(s) M79.674 ; Pain in left toe(s) M79.675 ; Right foot pain M79.671 ; Plantar wart B07.0 and Other hammer toe(s) (acquired), left foot M20.[address] [address] 07/18/2025 Eva Garciaa Onychomycosis B35.1 ; Plantar wart B07.0 ; [...] arthritis of left ankle (ICD-10 - M19.172) 07/18/2025 Plantar wart (ICD-10 - B07.0) 07/18/2025 Onychomycosis (ICD-10 - B35.1) 04/25/2025 Onychomycosis (ICD-10 - B35.1) 07/18/2025 Pain in right toe(s) (ICD-10 - M79.674) 02/12/2025 Pain in right toe(s) (ICD-10 - M79.674) 02/12/2025 Pain in left toe(s) (ICD-10 - M79.675) 07/18/2025 Pain in left toe(s) (ICD-10 - M79.675) 04/25/2025 Pain in right toe(s) (ICD-10 - M79.674) 04/25/2025 Pain in left toe(s) (ICD-10 - M79.675) 07/18/2025 Right foot pain (ICD-10 - M79.671) 02/12/2025 Right foot pain (ICD-10 - M79.671) 02/12/2025 Plantar wart (ICD-10 - B07.0) 04/25/2025 Right foot pain (ICD-10 - M79.671) 04/25/2025 Plantar wart (ICD-10 - B07.0) 02/12/2025 Other hammer toe(s) (acquired), left foot (ICD-10 - M20.42) 04/25/2025 Other hammer toe(s) (acquired), left foot (ICD-10 - M20.42) Plan Of Treatment Next Appt Details Provider Name:Eva grullon, 10/15/2025 02:45:00 PM, [address] [place] [address], [phone], Insurance Providers Payer Name Payer Address Payer Phone Subscriber Number Group Number Insured Name Patient Relationship to Insured Coverage Start Date Coverage End Date Medicare [employer] [address] [place] [address] [id number] Edgard Robb Self - patient is the insured 0 Medical (General) History Medical History History ICD Code Anxiety Arthritis Back,Hip,and Knee pain CAD (Cholesterol) Cataracts Depression Hiatal hernia High Blood Pressure Psychiatric disorder Reflux ( GERD) Sinusitis Sickle cell disease Surgical History Surgery Date(Month/Year) hernia surgery 02/09 cataract surgery face surgery
--- OUTSIDE RECORDS SUMMARY | 2025-07-23 17:52 | XMS_ITS | Data Portability ---
Author Organization [facility], Main Office Address [address] [place] [address] Care Team Providers Care Advertising Teacher Name Role Phone ELVA PERRY - 2ND FLOOR OTHER ROSIE BURROWS Primary Care Provider Assessment No assessment recorded. Plan of Treatment Reminders Order Date Submit Date Provider Last Modified By Organization Details Last Modified Time Details Appointments None record ed. Lab None record ed. Referral None record ed. Procedures None record ed. Surgeries None record ed. Imaging None record ed. Medication Orders None record ed. Patient TargetsNo targets recorded. Patient InstructionsNo instructions recorded. Reason for Referral None Reported. Problems Name Problem SNOMED Code Status Onset Date Resolution Date Notes Provider Name and Address Organization Details Recorded Time Chronic lymphoid leukemia, disease 03910719 Active 2023 Jessa Schaefer NP [address], [address], [place], [address], [facility] [employer] [facility] 4 16:32:25 Chronic obstructive pulmonary disease 37297525 Active 2023 Jessa Schaefer NP [address], [address], [place], [address], [facility] [employer] [facility] 4 16:32:34 Hypertensiv e disorder 83037194 Active 2023 Jessa Schaefer NP [address], [address], [place], [address], [facility] [employer] [facility] 4 16:32:38 Paroxysmal atrial fibrillatio n 532339263 Active 2023 Jessa Schaefer NP [address], [address], [place], [address], [facility] [employer] [facility] 4 16:32:56 Alcoholic hepatitis 559934681 Active 2023 Jessa Schaefer NP [address], [address], [place], [address], [facility] 4 16:33:27 Former heavy tobacco smoker 3599155143504 00 Active 2023 Jessa Schaefer NP [address], [address], [place], [address], [facility] 4 16:34:05 Schizoaffec tive schizophren ia 136963087 Active 2023 Jessa Schaefer NP [address], [address], [place], [address], [facility] 4 16:34:46 Toxic encephalopa thy 12947403 Active 2023 Jessa Schaefer NP [address], [address], [place], [address], [facility] 4 16:37:53 Hyperparath yroidism 72219692 Active 2023 Jessa Schaefer NP [address], [address], [place], [address], [facility] 4 16:35:37 Hypernatrem ia 827425247 Active 2023 Jessa Schaefer NP [address], [address], [place], [address], [facility] 4 16:35:42 Aspiration pneumonia 562571480 Active 2023 Jessa Schaefer NP [address], [place], [address], [facility] 4 16:36:03 Seizure 05739588 Active 2023 Jessa Schaefer NP [address], [address], [place], [address], [facility] 4 16:36:17 Asthenia 20923871 Active 2023 Jessa Schaefer NP [address], [place], [address], [facility] [employer] [facility] 4 16:36:31 Recurrent falls 603443420 Active 2023 Jessa Scheafer NP [address], [address], [place], [address], [facility] [employer] [facility] 4 16:36:42 Retention of urine 649073040 Active 2023 Jessa Schaefer NP [address], [address], [place], [address], [facility] [employer] [facility] 4 16:37:19 Pressure injury stage III 5889244688 Active 2023 Jessa Schaefer NP [address], [address], [place], [address], [facility] [employer] [facility] 4 16:37:40 Gastroesoph ageal reflux disease 365533887 Active 2023 Jessa Schaefer NP [address], [address], [place], [address], [facility] [employer] [facility] 4 16:40:36 Hypothyroid ism 64634666 Active 2023 Jessa Schaefer NP [address], [address], [place], [address], [facility] [employer] [facility] 4 17:01:14 Hyperlipide ana maria 59705525 Active 2023 Jessa Schaefer NP [address], [address], [place], [address], [facility] [employer] [facility] 4 17:03:33 Iron deficiency 46768145 Active 2023 Stacia Celestin MD [address], [address], [place], [address], [facility] [employer] [facility] 4 22:02:49 Problem Notes None recorded. Medical Equipment None Reported. Allergies Allergen ID Allergen Name Allergen Category Reaction Reaction Severity Criticality Documentation Date Start Date Code Code System Note Provider Name and Address Organization Details Recorded Time 65251 atorvasta tin medicatio n other Not available unabletoasse ss 06/28/2024 73268 RxNorm unkno wn Jessa Schaefer NP [address], [address], [place], [address], [facility] 4 16:01:31 Vitals Date Recorded Body height Heart rate Respiratory rate Body temperature Oxygen saturation Oxygen saturation in Arterial blood by Pulse oximetry Systolic And Diastolic Provider Name and Address Organization Details Last Updated DateTime 4 177.8 cm 72 /min 18 /min 98 [degF] 98 % 98 % 130/72 mm[Hg] ELGIN RAPP NP [address], [address], [place], [address], [facility] 4 13:26:10 Date Recorded Body height Heart rate Respiratory rate Body temperature Oxygen saturation Oxygen saturation in Arterial blood by Pulse oximetry Systolic And Diastolic Provider Name and Address Organization Details Last Updated DateTime 4 177.8 cm 71 /min 18 /min 98 [degF] 98 % 98 % 130/72 mm[Hg] ELGIN RAPP NP [address], [address], [place], [address], [facility] 4 13:04:54 Date Recorded Body height Body mass index (BMI) Body weight Heart rate Respiratory rate Body temperature Oxygen saturation Oxygen saturation in Arterial blood by Pulse oximetry Systolic And Diastolic Provider Name and Address Organization Details Last Updated DateTime 4 177.8 cm 28.1 kg/m2 36612.1 g 66 /min 18 /min 98 [degF] 98 % 98 % 130/72 mm[Hg] Jessa Schaefer NP [address], [address], [place], [address], [facility] 4 10:32:35 Date Recorded Body height Body mass index (BMI) Body weight Heart rate Respiratory rate Body temperature Oxygen saturation Oxygen saturation in Arterial blood by Pulse oximetry Systolic And Diastolic Provider Name and Address Organization Details Last Updated DateTime 4 177.8 cm 28.2 kg/m2 76089.9 g 78 /min 18 /min 97.8 [degF] 97 % 97 % 130/72 mm[Hg] Stacia Celestin MD [address], [address], [place], [address], [facility] 4 21:24:42 Date Recorded Body height Body weight Heart rate Respiratory rate Body temperature Oxygen saturation Oxygen saturation in Arterial blood by Pulse oximetry Systolic And Diastolic Provider Name and Address Organization Details Last Updated DateTime 4 177.8 cm 34888.1 g 73 /min 18 /min 97.5 [degF] 97 % 97 % 130/72 mm[Hg] Jessa Schaefer NP [address], [address], [place], [address], [facility] 4 12:03:57 Social History Question Answer Notes LastModified by [facility] Details LastModified Time Tobacco Smoking Status Former Smoker Jessa Schaefer NP [address], [address], [place], [address], [facility] 06/28/2024 16:03:38 Do You Have An Advance Directive? Yes Information not available 07/01/2024 What Is Your Level Of Caffeine Consumption? None Information not available 06/28/2024 What Is Your Code Status? Full Code Information not available 06/28/2024 Where Do You Live? Apartment Alone, 2nd Floor Of House. Information not available 07/01/2024 Legal Guardian? No Informati on not available 06/28/2024 Do You Have A Medical Power Of Waistline Joiner? Yes Information not available 07/01/2024 What Was The Date Of Your Most Recent Tobacco Screening? 06/28/2024 Information not available 06/28/2024 Do You Have An Out Of Hospital DNR? No Information not available 06/28/2024 What Is Your Relationship Status? Single Information not available 06/28/2024 How Much Tobacco Do You Smoke? No Information not available 06/28/2024 Has Tobacco Cessation Counseling Been Provided? No Information not available 06/28/2024 Do You Have Any Dietary Restrictions? No Information not available 06/28/2024 Sex: Male Functional Status Question Answer Note LastModified by Organizat ion Details LastModified Time Do you use any illicit or recreational drugs? No Marijuana Information not available 07/01/2024 Do you or have you ever used any other forms of tobacco or nicotine? No not anymore, vague Information not available 06/28/2024 What is your level of alcohol consumption? None quit 10 years ago, was heavy drinker for many yrs. Information not available 07/01/2024 Mental Status Question Answer Note LastModified by Organization D etails LastModified Time Do you feel stressed (tense, restless, nervous, or anxious, or unable to sleep at night)? [id number] Information not available 06/28/2024 Family History Nothing Reported Notes:Does not think mom and dad had cancer, dm or heart disease. aunt had cancer unclear of kind Medical History No medical history recorded. Immunizations Vaccine Type Date Status Note Provider Nam e and Address Organization Details Recorded Time influenza, unspecified formulation 07/15/2022 completed [facility] 07/03/2024 15:58:07 SARS-COV-2 (COVID-19) vaccine, UNSPECIFIED 07/15/2022 completed [facility] 07/03/2024 15:58:26 SARS-COV-2 (COVID-19) vaccine, UNSPECIFIED 10/19/2020 completed [facility] 07/03/2024 15:58:33 SARS-COV-2 (COVID-19) vaccine, UNSPECIFIED 11/09/2020 completed [facility] 07/03/2024 15:58:43 SARS-COV-2 (COVID-19) vaccine, UNSPECIFIED 07/14/2021 completed [facility] 07/03/2024 15:58:58 Tdap 12/08/2016 completed [facility] 07/03/2024 15:59:16 Past Encounters Encounter ID Performer Location Encounter Start Date Encounter Closed Date Diagnosis/Indication Diagnosis SNOMED-CT Code Diagnosis ICD10 Code Diagnosis IMO Codes Diagnosis Note [id number] Jessa Schaefer NP [address] [address] 06/28/2024 14:47:56 07/03/2024 11:48:25 Toxic encephalopathy 54127632 G92.9 felt multifacto rial improved with IVF, meds, and carefelt he improved cognitivel y since hospitaliz ationmonit or for improvemen t or declineBIM S 09/01 however vague on admissionm onitor for need to invoke Schizoaffe ctive schizophrenia 550517646 F25.0 with mood disorderDu e to the lithium toxicity he was started on risperdol consta IM every 14 days, last dose on 06/27/24, next due 07/12. Tylenol, lithium, stopped and recommend not to go back on lithium in the futureparo xetine decreased to 20 mg daily.psyc h eval and treat prnmonitor Asthenia 84948510 R53.1 PT/OT eval and treatsuppo rtive caremonito r Recurrent falls 72930625 2 R29.6 hx of fallsno ac for afibsuppor tive carePT/OT eval and treatmonit or Seizure 47766159 R56.9 with one seizure in the hospital felt to to elyte imbalances neurology recommende d no keppramoni tor for further seizures, deficits Aspiration pneumonia 422 876190 J69.0 required IVF, abx and ventilatio n support in the ICUnow resovledre commended nDD3 diet with thin liquidsspe ech to eval and treatconsi ashlee repeat xray in a 3-4 weeksmonit or Hypernatremia 745138523 E87.0 resolved with IVF and treatmentm onitorbmp on 07/02 Hyperparathyroidism 6699 9008 E21.3 resolved with calcitonin inptno further tx per dc summarymon itor for further need of meds Paroxysmal atrial fibrillation 033961641 I48.0 paroxysmal afib reverted to nsrac not rec due to increased fall riskmonito r Pressure i njury stage III 9472515190 L89.93 with new stage III sacral ulcerns wash, pat dry, foam dressing dailyair loss bedturn and reposition q 2 hoursbarri er cream with zince bid and prnwound consultdie tician to assess nutritiona l needsmonit or Retention of urine 83018 4002 R33.9 resolved in hospitalfl omax 0.8 mg po qhsdutaste ride 0.5 mg po qhsmonitor Former loli bautista tobacco smoker [id number] 72239 Z87.891 pt states he quit 1month agorefuses NRTsupport juan caremonito r Hypertensive disorder 38 437542 I10 stable hereamlodo pine5 mg po qhsmonitor Chronic ob structive pulmonary disease 88930868 J44.9 flovent hfaduoneb q 3 hours prn sob/wheezi ngmonitor for s/s of resp distress Chronic ly mphoid leukemia, disease 56985848 C91.10 unclear if b cell on medical historyhx with chronic leukocysto sisferrous sulfate 325 mg po dailymonit orcbc weekly next on 07/02 Alcoholic hepatitis 2358 03104 F10.988 hx of alcohol use and hepatitisn o tyl usenaltrex one 50 mg po dailyavoid liver toxic meds when ablemonito r for s/s hepatitis Gastroesop hageal reflux disease 808480737 K21.9 contomepra zole 20 mg po dailymonit or Hypothyroidism 24961091 E03.9 levothyrox ine 112 mcg po dailymonit or levels prn Hyperlipidemia 25057330 E78.5 lopid 600 mg po bidmonitor [id number] Stacia Celestin MD [address] [address] 07/01/2024 17:56:50 07/03/2024 12:23:17 Toxic encephalopathy 54097662 G92.8 Gilead to be multifacto rial due to multiple metabolic abnormalit ies.Appare ntly back to baseline now after IV fluids and correction of metabolic imbalances .Continues to be mildly impaired with a BIMS of 09/01.Cont inue supportive careMonito r mood and behaviors. Psych consult prn. Schizoaffe ctive schizophrenia 454238895 F25.0 Longstandi ng mood disorder, with support services in the community. Can no longer be on lithium.Co ntinue risperdol consta 50 mg IM every 14 days, last dose on 06/27/24, next due 07/12; benztropin e 1 mg qd; and paroxetine 20 mg qd.Monitor mood.Seems to have poor judgement, monitor for need to invoke.Con sult psych due to complicate d situation. Asthenia 73028236 R53.1 Very deconditio laurence.Needs PT/OT for strengthen ing, balance, gait training, safety and function.C ontinue fall precaution s.Monitor for safety. Recurrent falls 90317982 2 R29.6 As above. Seizure 37027545 G40.89 Seizure in the hospital felt due to metabolic imbalances .With abnormal EEG. Txed with Keppra inpt, not continued. Neurology recommende d repeat EEG after recovery.M onitor for seizure activity Aspiration pneumonia 422 916207 J69.0 Resolved.C ontinue PSYCH TECH interventi ons.Contin ue modified diet.Monit or for aspiration . Hypernatremia 185129415 E87.0 Bumped while inpt. without prior hx of elevation. Improved by the time of d/cMonitor wkly x 4, then prn if stable.Enc ourage po fluids. Hyperparathyroidism 6699 9008 E21.2 Txed with calcitonin inpt, but not kept on this at d/c/Monito r Ca+ levels weekly.Lab s ordered for AM. Paroxysmal atrial fibrillation 813830793 I48.0 New dx for this pt.Now in NSR.Monito r for recurrence .Cardio f/u prn if recurrence . Pressure i njury stage III 1559017635 L89.153 Continue wound care as ordered.Co ntinue liquid protein 30 ml qd for help with healing.Mo nitor for healing. Retention of urine 74884 4002 R33.8 Likely due to acute illness.No w resolved.C ontinue tamsulosin 0.8 mg qhs and dutasterid e 0.5 mg qhs.Monito r urinary function. Former hea vy tobacco smoker [id number] 32445 Z87.891 In hx, reportedly quit a month ago.Encour age continued abstinence . Hypertensive disorder 38 691026 I10 Only one BP checked since here and it was WNLContinu e amlodipine 5 mg qdWill order daily vitals x 1 wk, then weekly if stable. Chronic ob structive pulmonary disease 55514786 J43.8 No current sxs.Contin ue Annuity Ellipta 100 mcg 1 puff qd and duonebs q 3 hrs prn.Monito r resp status. Chronic ly mphoid leukemia, disease 81411508 C91.10 Stage 0 disease as of 11/2023 per last heme/onc noteOverdu e for f/uMonitor labs.F/U with Dr. Osorio. Alcoholic hepatitis 2358 25199 F10.988 In hx, LFTs close to normal.Ken id hepatoxic meds.Monit or labs Gastroesop hageal reflux disease 050040681 K21.9 No current sxs.Contin ue omeprazole 20 mg qdMonitor GI sxs. Hypothyroidism 12851446 E03.8 TSH sl low inpt, but with nl FT4.Contin ue levothyrox ine 112 mcg qdMonitor TSH and FT4 periodical ly. Hyperlipidemia 11283638 E78.49 In hx.Continu e lovastatin 600 mg BID, gemfibrozi l 600 mg BID, omega-3 1000 mg BID, and Zetia 10 mg qd.Monitor labs yearly. 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 Alcohol dependence 76361 003 F10.20 Sober x 10 years.Cont inue naltrexone 50 mg qd.Encoura ge continued sobriety. [id number] Jessa Schaefer NP [address] [address] 07/04/2024 08:52:46 07/08/2024 09:33:33 Toxic encephalopathy 44751370 G92.8 Gilead to be multifacto rial due to multiple metabolic abnormalit ies.possib ly back to baseline now after IV fluids and correction of metabolic imbalances .Continues to be mildly impaired with a BIMS of 09/01 on admitConti nue supportive careMonito r mood and behaviors. Psych consult prn. Hyperparathyroidism 6699 9008 E21.2 Txed with calcitonin inpt, but not kept on this at d/cMonitor Ca+ levels weekly. calcium 9.9 stablemoni tor prn Hypernatremia 412683895 E87.0 Bumped while inpt. without prior hx of elevation. Improved by the time of d/cMonitor wkly x 4, then prn if stable.Enc ourage po fluids. Seizure 80714398 G40.89 Seizure in the hospital felt due to metabolic imbalances .With abnormal EEG. Txed with Keambar inpt, not continued as neurology felt he does not need.Neuro logy recommende d repeat EEG after recovery.M onitor for seizure activity Schizoaffe ctive schizophrenia 419485554 F25.0 Longstandi ng mood disorder, with support services in the community. Can no longer be on lithium per last admission to hospitalCo ntinuerisp erdol consta 50 mg IM every 14 days, last dose on 06/27/24, next due 07/12;nai tropine 1 mg qdparoxeti ne 20 mg qd.Monitor mood.incre ased paranoia today with poor judgement, monitor for need to invoke. he is agreeable to take meds today after discussion and seeing dc paperwork only todayConsu lt psych requested Asthenia 24660835 R53.1 Very deconditio laurence and requires direction and cueing todayNeeds PT/OT for strengthen ing, balance, gait training, safety and function.C ontinue fall precaution s.Monitor for safety. Recurrent falls 59129345 2 R29.6 As above. Aspiration pneumonia 422 433017 J69.0 Resolved in hospitalCo ntinue PSYCH TECH interventi ons.Contin ue modified diet.Monit or for aspiration . Paroxysmal atrial fibrillation 493632593 I48.0 New dx for this pt. in hospital, hr and bp stableNow in NSR.Monito r for recurrence .Cardio f/u prn if recurrence . Pressure i njury stage III 5458524770 L89.153 Continue wound care as ordered to coccyxCont inueliquid protein 30 ml qd for help with healing.Mo nitor for healing. Retention of urine 77596 4002 R33.8 resolved due to acute hospitaliz ationConti nuetamsulo sin 0.8 mg qhsdutaste ride 0.5 mg qhs.Monito r urinary function. Hypertensive disorder 38 337247 I10 bp stable on 07/02, need new bp, will request todayConti nueamlodip ine 5 mg qdWill order daily vitals x 1 wk, then weekly if stable. Chronic ob structive pulmonary disease 62492445 J43.8 No current sxs.Contin ueAnnuity Ellipta 100 mcg 1 puff qd and duonebs q 3 hrs prn.Monito r resp status. Chronic ly mphoid leukemia, disease 48896482 C91.10 Stage 0 disease as of 11/2023 per last heme/onc noteOverdu e for f/uMonitor labs, except leukocytos isF/U with Dr. 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 Alcoholic hepatitis 2358 65341 F10.988 In hx, LFTs close to normal.Ken id hepatoxic meds.Monit or labs Alcohol dependence 83403 003 F10.20 Sober x 10 years.Cont inuenaltre xone 50 mg qd.Encoura ge continued sobriety. Gastroesop hageal reflux disease 963918284 K21.9 No current sxs.Contin ue omeprazole 20 mg qdMonitor GI sxs. Hypothyroidism 18062399 E03.8 TSH sl low inpt, but with nl FT4.Contin uelevothyr oxine 112 mcg qdMonitor TSH and FT4 periodical ly. Hyperlipidemia 62929626 E78.49 per hxContinue lovastatin 600 mg BID, gemfibrozi l 600 mg BID, omega-3 1000 mg BID, and Zetia 10 mg qd.Monitor labs yearly and for need to adjust [id number] ELGIN RAPP NP [address] [address] 07/09/2024 12:25:29 07/10/2024 11:38:48 Schizoaffective schizophrenia 691288940 F25.0 Longstandi mood disorder, with support services in the community. Can no longer be on lithium per last admission to hospitalCo ntinuerisp erdol consta 50 mg IM every 14 days, last dose on 06/27/24, next due 07/12;nai tropine 1 mg qdparoxeti ne 20 mg qd.Monitor mood.Provi de emotional supportCon sult psych requested Asthenia 57765085 R53.1 Very deconditio laurence from illness and recent hospitaliz ation.Need s PT/OT for strengthen ing, balance, gait training, safety and function.C ontinue fall precaution s.Monitor for safety.Yi ramirez is to return home. Toxic encephalopathy 283 69669 G92.8 Gilead to be multifacto rial due to multiple metabolic abnormalit ies.possib ly back to baseline now after IV fluids and correction of metabolic imbalances .Continues to be mildly impaired with a BIMS of 09/01 on admitConti nue supportive careMonito r mood and behaviors. Psych consult prn. Hyperparathyroidism 6699 9008 E21.2 Txed with calcitonin inpt, but not kept on this at d/cMonitor Ca+ levels weekly. calcium 9.9 stablemoni tor prn Hypernatremia 356635029 E87.0 Bumped while inpt. without prior hx of elevation. Improved by the time of d/cMonitor wkly x 4, then prn if stable.Enc ourage po fluids. Recurrent falls 78844625 2 R29.6 As above. Aspiration pneumonia 422 997959 J69.0 Resolved in hospitalCo ntinue PSYCH TECH interventi ons.Contin ue modified diet.Monit or for aspiration . Paroxysmal atrial fibrillation 888863043 I48.0 New dx for this pt. in hospital, hr and bp stableNow in NSR.Monito r for recurrence .Cardio f/u prn if recurrence . Pressure i njury stage III 9882315036 L89.153 Continue wound care as ordered to gangaRefrosana r to Wound PA-C for eval and tx.liquid protein 30 ml qd for help with healing.Mo nitor for healing. Retention of urine 65214 4002 R33.8 resolved due to acute hospitaliz ationConti nuetamsulo sin 0.8 mg qhsdutaste ride 0.5 mg qhs.Monito r urinary function. Seizure 75470786 G40.89 Seizure in the hospital felt due to metabolic imbalances .With abnormal EEG. Txed with Keppra inpt, not continued as neurology felt he does not need.Neuro logy recommende d repeat EEG after recovery.M onitor for seizure activity Hypertensive disorder 38 112390 I10 bp stable on 07/02, need new bp, will request todayConti nueamlodip ine 5 mg qdWill order daily vitals x 1 wk, then weekly if stable. Chronic ob structive pulmonary disease 73644404 J43.8 No current sxs.Contin ueAnnuity Ellipta 100 mcg 1 puff qd and duonebs q 3 hrs prn.Monito r resp status. Chronic ly mphoid leukemia, disease 30354487 C91.10 Stage 0 disease as of 11/2023 per last heme/onc noteOverdu e for f/uMonitor labs, except leukocytos isF/U with Dr. 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 Alcoholic hepatitis 2358 51655 F10.988 In hx, LFTs close to normal.Ken id hepatoxic meds.Monit or labs Alcohol dependence 73805 003 F10.20 Sober x 10 years.Cont inuenaltre xone 50 mg qd.Encoura ge continued sobriety. Gastroesop hageal reflux disease 310995828 K21.9 No current sxs.Contin ue omeprazole 20 mg qdMonitor GI sxs. Hypothyroidism 18099086 E03.8 TSH sl low inpt, but with nl FT4.Contin uelevothyr oxine 112 mcg qdMonitor TSH and FT4 periodical ly. Hyperlipidemia 90422858 E78.49 per hxContinue lovastatin 600 mg BID, gemfibrozi l 600 mg BID, omega-3 1000 mg BID, and Zetia 10 mg qd.Monitor labs yearly and for need to adjust Pain of le ft knee joint 4728481284 76167 M25[address] Red today, planning on cortisone injection. Monitor. [id number] ELGIN RAPP NP [address] [address] 07/16/2024 11:45:17 07/17/2024 19:43:58 Schizoaffective schizophrenia 777686942 F25.0 [facility], with support services in the community. Can no longer be on lithium per last admission to hospitalCo ntinuerisp erdol consta 50 mg IM every 14 days, last dose on 06/27/24, next due 07/12;nai tropine 1 mg qdparoxeti ne 20 mg qd.Monitor mood, currently stable.Pro vide emotional supportCon sult psych requested Asthenia [id number] R53.1 Very deconditio laurence from illness and recent hospitaliz ation.Need s PT/OT for strengthen ing, balance, gait training, safety and function.C ontinue fall precaution s.Monitor for safety.Yi ramirez is to return home. Toxic encephalopathy 283 15661 G92.8 Gilead to be multifacto rial due to multiple metabolic abnormalit ies.possib ly back to baseline now after IV fluids and correction of metabolic imbalances .Continues to be mildly impaired with a BIMS of 09/01 on admitConti nue supportive careMonito r mood and behaviors. Psych consult prn. Hyperparathyroidism 6699 9008 E21.2 Txed with calcitonin inpt, but not kept on this at d/cMonitor Ca+ levels weekly. calcium 9.8 stablemoni tor prn Hypernatremia 554615154 E87.0 Bumped while inpt. without prior hx of elevation. Improved by the time of d/cMonitor wkly x 4, then prn if stable.Cur rent level 139.Encour age po fluids. Recurrent falls 30753082 2 R29.6 As above. Aspiration pneumonia 422 105986 J69.0 Resolved in hospitalCo ntinue PSYCH TECH interventi ons.Contin ue modified diet.Monit or for aspiration . Paroxysmal atrial fibrillation 560016284 I48.0 New dx for this pt. in hospital, hr and bp stableNow in NSR.Monito r for recurrence .Cardio f/u prn if recurrence . Pressure i njury stage III 1236735623 L89.153 Continue wound care as ordered to coccyxRefe r to Wound PA-C for eval and tx.liquid protein 30 ml qd for help with healing.Mo nitor for healing. Retention of urine 29125 4002 R33.8 resolved due to acute hospitaliz ationConti nuetamsulo sin 0.8 mg qhsdutaste ride 0.5 mg qhs.Monito r urinary function. Seizure 69951547 G40.89 Seizure in the hospital felt due to metabolic imbalances .With abnormal EEG. Txed with Keppra inpt, not continued as neurology felt he does not need.Neuro logy recommende d repeat EEG after recovery.M onitor for seizure activity Hypertensive disorder 38 276791 I10 bp stable on 07/02, need new bp, will request todayConti nueamlodip ine 5 mg qdWill order daily vitals x 1 wk, then weekly if stable. Chronic ob structive pulmonary disease 32783009 J43.8 No current sxs.Contin ueAnnuity Ellipta 100 mcg 1 puff qd and duonebs q 3 hrs prn.Monito r resp status. Chronic ly mphoid leukemia, disease 66003913 C91.10 Stage 0 disease as of 11/2023 per last heme/onc noteOverdu e for f/uMonitor labs, except leukocytos isF/U with Dr. Osorio outpt Iron deficiency 45658378 E61.1 Hx of iron deficiency and also secondary erythrocyt osis due to smoking.Ne eded iron supplement ation and also periodic phlebotomy .ContinueF eSO4 325 mg qd.Monitor labs. Alcoholic hepatitis 2358 69961 F10.988 In hx, LFTs close to normal.Ken id hepatoxic meds.Monit or labs Alcohol dependence 40127 003 F10.20 Sober x 10 years.Cont inuenaltre xone 50 mg qd.Encoura ge continued sobriety. Gastroesop hageal reflux disease 169952420 K21.9 No current sxs.Contin ue omeprazole 20 mg qdMonitor GI sxs. Hypothyroidism 50822483 E03.8 TSH sl low inpt, but with nl FT4.Contin uelevothyr oxine 112 mcg qdMonitor TSH and FT4 periodical ly. Hyperlipidemia 61776832 E78.49 per hxContinue lovastatin 600 mg BID, gemfibrozi l 600 mg BID, omega-3 1000 mg BID, and Zetia 10 mg qd.Monitor labs yearly and for need to adjust Pain of le ft knee joint [id number] [address] Red, given cortisone injection with improvemen t in comfort.Mo nitor. [id number] ELGIN RAPP NP [address] [address] 07/25/2024 13:21:33 07/26/2024 11:30:22 Schizoaffective schizophrenia 254842937 F25.0 Longstandi mood disorder, with support services in the community. Can no longer be on lithium per last admission to hospitalCo ntinuerisp erdol consta 50 mg IM every 14 days, last dose on 06/27/24, next due 07/12;nai tropine 1 mg qdparoxeti ne 20 mg qd.Monitor mood, currently stable.Pro vide emotional supportCon sult psych requested Asthenia [id number] R53.1 Very deconditio laurence from illness and recent hospitaliz ation.Need s PT/OT for strengthen ing, balance, gait training, safety and function.C ontinue fall precaution s.Monitor for safety.Yi ramirez is to return home. Toxic encephalopathy 283 53771 G92.8 Gilead to be multifacto rial due to multiple metabolic abnormalit ies.possib ly back to baseline now after IV fluids and correction of metabolic imbalances .Continues to be mildly impaired with a BIMS of 09/01 on admitConti nue supportive careMonito r mood and behaviors. Psych consult prn. Hyperparathyroidism 6699 9008 E21.2 Txed with calcitonin inpt, but not kept on this at d/cMonitor Ca+ levels weekly. calcium 9.8 stablemoni tor prn Hypernatremia 584813576 E87.0 Bumped while inpt. without prior hx of elevation. Improved by the time of d/cMonitor wkly x 4, then prn if stable.Cur rent level 139.Encour age po fluids. Recurrent falls 33667982 2 R29.6 As above. Aspiration pneumonia 422 426571 J69.0 Resolved in hospitalCo ntinue PSYCH TECH interventi ons.Contin ue modified diet.Monit or for aspiration . Paroxysmal atrial fibrillation 501503342 I48.0 New dx for this pt. in hospital, hr and bp stableNow in NSR.Monito r for recurrence .Cardio f/u prn if recurrence . Pressure i njury stage III 1151241486 L89.153 Continue wound care as ordered to coccyxRefe r to Wound PA-C for eval and tx.liquid protein 30 ml qd for help with healing.Mo nitor for healing. Retention of urine 85744 4002 R33.8 resolved due to acute hospitaliz ationConti nuetamsulo sin 0.8 mg qhsdutaste ride 0.5 mg qhs.Monito r urinary function. Seizure 06988535 G40.89 Seizure in the hospital felt due to metabolic imbalances .With abnormal EEG. Txed with Keppra inpt, not continued as neurology felt he does not need.Neuro logy recommende d repeat EEG after recovery.M onitor for seizure activity Hypertensive disorder 38 258418 I10 bp stable on 07/02, need new bp, will request todayConti nueamlodip ine 5 mg qdWill order daily vitals x 1 wk, then weekly if stable. Chronic ob structive pulmonary disease 04429302 J43.8 No current sxs.Contin ueAnnuity Ellipta 100 mcg 1 puff qd and duonebs q 3 hrs prn.Monito r resp status. Chronic ly mphoid leukemia, disease 02651892 C91.10 Stage 0 disease as of 11/2023 per last heme/onc noteOverdu e for f/uMonitor labs, except leukocytos isF/U with Dr. Osorio outpt Iron deficiency 70404145 E61.1 Hx of iron deficiency and also secondary erythrocyt osis due to smoking.Ne eded iron supplement ation and also periodic phlebotomy .ContinueF eSO4 325 mg qd.Monitor labs. Alcoholic hepatitis 2358 39998 F10.988 In hx, LFTs close to normal.Ken id hepatoxic meds.Monit or labs Alcohol dependence 21223 003 F10.20 Sober x 10 years.Cont inuenaltre xone 50 mg qd.Encoura ge continued sobriety. Gastroesop hageal reflux disease 545105775 K21.9 No current sxs.Contin ue omeprazole 20 mg qdMonitor GI sxs. Hypothyroidism 36715734 E03.8 TSH sl low inpt, but with nl FT4.Contin uelevothyr oxine 112 mcg qdMonitor TSH and FT4 periodical ly. Hyperlipidemia 69573136 E78.49 per hxContinue lovastatin 600 mg BID, gemfibrozi l 600 mg BID, omega-3 1000 mg BID, and Zetia 10 mg qd.Monitor labs yearly and for need to adjust Pain of le ft knee joint 5595260641 [address] Red, given cortisone injection with improvemen t in comfort.Mo nitor. [id number] ELGIN RAPP NP [facility] [address] [facility] [address] 08/01/2024 13:03:49 08/12/2024 13:19:40 Schizoaffective schizophrenia 367117642 F25.0 Longstandi ng mood disorder, with support services in the community. Can no longer be on lithium per last admission to hospitalCo ntinuerisp erdol consta 50 mg IM every 14 days, last dose on 06/27/24, next due 07/12;nai tropine 1 mg qdparoxeti ne 20 mg qd.Monitor mood, currently stable.Pro vide emotional supportCon sult psych requested Asthenia 74111329 R53.1 Very deconditio laurence from illness and recent hospitaliz ation.Need s PT/OT for strengthen ing, balance, gait training, safety and function.C ontinue fall precaution s.Monitor for safety.Yi ramirez is to return home. Toxic encephalopathy 283 60298 G92.8 Gilead to be multifacto rial due to multiple metabolic abnormalit ies.possib ly back to baseline now after IV fluids and correction of metabolic imbalances .Continues to be mildly impaired with a BIMS of 09/01 on admitConti nue supportive careMonito r mood and behaviors. Psych consult prn. Hyperparathyroidism 6699 9008 E21.2 Txed with calcitonin inpt, but not kept on this at d/cMonitor Ca+ levels weekly. calcium 9.8 stablemoni tor prn Hypernatremia 627695771 E87.0 Bumped while inpt. without prior hx of elevation. Improved by the time of d/cMonitor wkly x 4, then prn if stable.Cur rent level 139.Encour age po fluids. Recurrent falls 40817518 2 R29.6 As above. Aspiration pneumonia 422 989304 J69.0 Resolved in hospitalCo ntinue PSYCH TECH interventi ons.Contin ue modified diet.Monit or for aspiration . Paroxysmal atrial fibrillation 092889654 I48.0 New dx for this pt. in hospital, hr and bp stableNow in NSR.Monito r for recurrence .Cardio f/u prn if recurrence . Retention of urine 36790 4002 R33.8 resolved due to acute hospitaliz ationConti nuetamsulo sin 0.8 mg qhsdutaste ride 0.5 mg qhs.Monito r urinary function. Seizure 99032802 G40.89 Seizure in the hospital felt due to metabolic imbalances .With abnormal EEG. Txed with Keppra inpt, not continued as neurology felt he does not need.Neuro logy recommende d repeat EEG after recovery.M onitor for seizure activity Hypertensive disorder 38 159580 I10 BP on higher side of nl.Check daily, consider increasing norvasc (currently on 5mg qd) Chronic ob structive pulmonary disease 60193079 J43.8 No current sxs.Contin ueAnnuity Ellipta 100 mcg 1 puff qd and duonebs q 3 hrs prn.Monito r resp status. Chronic ly mphoid leukemia, disease 96982774 C91.10 Stage 0 disease as of 11/2023 per last heme/onc noteOverdu e for f/uMonitor labs, except leukocytos isF/U with Dr. Osorio outpt Iron deficiency 20898692 E61.1 Hx of iron deficiency and also secondary erythrocyt osis due to smoking.Ne eded iron supplement ation and also periodic phlebotomy .ContinueF eSO4 325 mg qd.Monitor labs. Alcoholic hepatitis 2358 90098 F10.988 In hx, LFTs close to normal.Ken id hepatoxic meds.Monit or labs Alcohol dependence 34975 003 F10.20 Sober x 10 years.Cont inuenaltre xone 50 mg qd.Encoura ge continued sobriety. Gastroesop hageal reflux disease 027511379 K21.9 No current sxs.Contin ue omeprazole 20 mg qdMonitor GI sxs. Hypothyroidism 64537726 E03.8 TSH sl low inpt, but with nl FT4.Contin uelevothyr oxine 112 mcg qdMonitor TSH and FT4 periodical ly. Hyperlipidemia 10443154 E78.49 per hxContinue lovastatin 600 mg BID, gemfibrozi l 600 mg BID, omega-3 1000 mg BID, and Zetia 10 mg qd.Monitor labs yearly and for need to adjust Pain of le ft knee joint 2931596273 [address] Red, given cortisone injection with improvemen t in comfort.Mo nitor. [id number] Jessa Schaefer NP [facility] [address] [facility] [address] 08/09/2024 14:04:27 08/12/2024 10:28:12 Schizoaffective schizophrenia 138021084 F25.0 has longstandi ng mood disorder, with support services in the community. Can no longer be on lithium per last admission to hospital with toxicityCo ntinuerisp erdol consta 50 mg IM every 14 days,(will need to followed in community for injections with nursing, pcp, or psych )benztropi ne 1 mg qdparoxeti ne 20 mg qd.Monitor mood, currently stable.Pro vide emotional supportCon sult psych requested Asthenia 63359810 R53.1 Very deconditio laurence from illness and recent hospitaliz ation, now improvingP T/OT for strengthen ing, balance, gait training, safety and function as neededCont inue fall precaution s.Monitor for safety.Goyadi ramirez is to return home. Toxic encephalopathy 283 91996 G92.8 resolved, likely at baselineFe lt to be multifacto rial due to multiple metabolic abnormalit ies.possib ly back to baseline now after IV fluids and correction of metabolic imbalances .mildly impaired with a BIMS of 09/01 on admitConti nue supportive careMonito r mood and behaviors. Psych consult prn. Hyperparathyroidism 6699 9008 E21.2 Txed with calcitonin inpt, but not kept on this at d/cMonitor Ca+ levels weekly. calcium 10.1, may need calcitonin if levels increasemo nitor prn Recurrent falls 29262075 2 R29.6 As above. Paroxysmal atrial fibrillation 616122347 I48.0 New dx for this pt. in hospital, hr and bp stableNow in NSR. Not any rate control meds and doing wellMonito r for recurrence .Cardio f/u prn if recurrence . Retention of urine 78648 4002 R33.8 resolved due to acute hospitaliz ationConti nuetamsulo sin 0.8 mg qhsdutaste ride 0.5 mg qhs.Monito r urinary function. Seizure 28986153 G40.89 Seizure in the hospital felt due to metabolic imbalances .With abnormal EEG. Txed with Keppra inpt, not continued as neurology felt he does not need.Neuro logy recommende d repeat EEG after recovery.M onitor for seizure activity Hypertensive disorder 38 082160 I10 BP on higher side of nl. 130s todayCheck daily, consider increasing norvasc (currently on 5mg qd) if needed Chronic ob structive pulmonary disease 98188703 J43.8 No current sxs.Contin ueAnnuity Ellipta 100 mcg 1 puff qd and duonebs q 3 hrs prn.Monito r resp status. Chronic ly mphoid leukemia, disease 46209878 C91.10 Stage 0 disease as of 11/2023 per last heme/onc noteOverdu e for f/uMonitor labs, except leukocytos isF/U with Dr. Osorio outpt Iron deficiency 38781319 E61.1 Hx of iron deficiency and also secondary erythrocyt osis due to smoking.Ne eded iron supplement ation and also periodic phlebotomy .ContinueF eSO4 325 mg qd.Monitor labs. Alcoholic hepatitis 2358 00417 F10.988 In hx, LFTs close to normal.Ken id hepatoxic meds.Monit or labs Alcohol dependence 24151 003 F10.20 Sober x 10 years.Cont inuenaltre xone 50 mg qd.Encoura ge continued sobriety. Gastroesop hageal reflux disease 227735153 K21.9 No current sxs.Contin ueomeprazo le 20 mg qdMonitor GI sxs. Hypothyroidism 45053714 E03.8 TSH sl low inpt, but with nl FT4.Contin uelevothyr oxine 112 mcg qdMonitor TSH and FT4 periodical ly. Hyperlipidemia 63369576 E78.49 per hxContinue lovastatin 600 mg BID, gemfibrozi l 600 mg BID, omega-3 1000 mg BID, and Zetia 10 mg qd.Monitor labs yearly and for need to adjust Pain of le ft knee joint 8300845035 [address] Red, given cortisone injection with improvemen t in comfort a few weeks ago.pt states knee pain has improvedMo nitor. [id number] Stacia Celestin MD [address] [address] 08/13/2024 21:21:13 08/14/2024 10:44:47 Lower abdominal pain 75106282 R10.31 Not clear if pain he gets in RLQ is related to inguinal hernia or umbilical hernia. But non-acute and he is being d/c'd 6 days. So will f/u with PCP for surgeon referral.R eassess sooner if increased sxs. Hypertensive disorder 38 189132 I10 BP WNLContinu e amlodipine 5 mg qdMonitor BP and labs Schizoaffe ctive schizophrenia 976422487 F25.0 Mood good since here.Sara nue risperdol consta 50 mg IM every 14 days, last dose on 06/27/24, next due 07/12; benztropin e 1 mg qd; and paroxetine 20 mg qd.Monitor mood.F/U with psych as outpt. [id number] Jessa Schaefer NP [address] [address] 08/19/2024 12:02:56 08/20/2024 09:41:25 Lower abdominal pain 25442320 R10.31 small inguinal hernia or umbilical hernia.f/u with PCP for surgeon referral.R eassess sooner if increased sxs outpt with pcp Hypertensive disorder 38 972710 I10 BP WNLContinu eamlodipin e 5 mg qdMonitor BP and labs outpt with pcp Schizoaffe ctive schizophrenia 964346142 F25.0 Mood good since here.Sara nuerisperd ol consta 50 mg IM every 14 days,benzt ropine 1 m,g qdparoxeti ne 20 mg qd.Monitor mood.F/U with psych as outpt. Asthenia 87626226 R53.1 Very deconditio laurence from illness and recent hospitaliz ation, now improving and feels back to baselinePT /OT for strengthen ing, balance, gait training, safety and function as needed outptConti nue fall precaution s.Monitor for safety outpt with pcp Toxic encephalopathy 283 50658 G92.8 resolved, likely at baseline at this timeFelt to be multifacto rial due to multiple metabolic abnormalit ies.possib ly back to baseline now after IV fluids and correction of metabolic imbalances .mildly impaired with a BIMS of 09/01 on admitConti nue supportive careMonito r mood and behaviors. Psych consult prn outpt Hyperparathyroidism 6699 9008 E21.2 Txed with calcitonin inpt, but not kept on this at d/cMonitor Ca+ levels weekly. calcium 10.1, may need calcitonin if levels increasemo nitor prn outpt with pcp Recurrent falls 23972087 2 R29.6 As above. Paroxysmal atrial fibrillation 004401262 I48.0 New dx for this pt. in hospital, hr and bp stableMoni tor for recurrence .not on meds for thisCardio f/u prn if recurrence outpt Retention of urine 96710 4002 R33.8 resolved due to acute hospitaliz ationConti nuetamsulo sin 0.8 mg qhsdutaste ride 0.5 mg qhs.Monito r urinary function outpt prn Seizure 43950676 G40.89 Seizure in the hospital felt due to metabolic imbalances .With abnormal EEG. Txed with Keppra inpt, not continued as neurology felt he does not need.Neuro logy recommende d repeat EEG after recovery.M onitor for seizure activity outpt with pcp Chronic ob structive pulmonary disease 37832294 J43.8 No current sxs.Contin ueAnnuity Ellipta 100 mcg 1 puff qdduonebs q 3 hrs prn.(has not needed lately)Mon itor resp status outpt with pcp Chronic ly mphoid leukemia, disease 72386711 C91.10 Stage 0 disease as of 11/2023 per last heme/onc noteOverdu e for f/uMonitor labs, except leukocytos isF/U with Dr. Osorio outpt Iron deficiency 56702529 E61.1 Hx of iron deficiency and also secondary erythrocyt osis due to smoking.Ne eded iron supplement ation and also periodic phlebotomy .ContinueF eSO4 325 mg qd.Monitor labs outpt Alcoholic hepatitis 2358 02063 F10.988 In hx, LFTs close to normal.Ken id hepatoxic meds.Monit or labs outpt Alcohol dependence 95224 003 F10.20 Sober x 10 years.Cont inuenaltre xone 50 mg qd.Encoura ge continued sobriety outpt Gastroesop hageal reflux disease 379516716 K21.9 No current sxs.Contin ueomeprazo le 20 mg qdMonitor GI sxs outpt Hypothyroidism 50255714 E03.8 TSH sl low inpt, but with nl FT4.Contin uelevothyr oxine 112 mcg qdMonitor TSH and FT4 periodical ly outpt Hyperlipidemia 32271877 E78.49 per hxContinue lovastatin 600 mg BID, gemfibrozi l 600 mg BID, omega-3 1000 mg BID, and Zetia 10 mg qd.Monitor labs yearly and for need to adjust outpt Pain of le ft knee joint 6798294697 [address] Red, given cortisone injection with improvemen t in comfort a few weeks ago. pt states knee pain has improvedMo nitor outpt with pcp Health Concerns Section Related Observation LastModified by Organization Detai ls LastModified Time None Recorded Concern Status LastModified by Organization Details LastModified Time None Recorded Advance Directives Directive Y: Payers Insurance Date Sequence Insurance Name Policy Number Policy Ferris Covered Member ID Ferris Member ID Guarantor Name 08/19/2024 2 [place] [facility] Robb Beckervincent [id number] Robb Edgard 08/19/2024 1 [place] B[place] [employer] Robb Kemp Edgard [id number] Robb Edgard Notes Date Note Type Note Provider Name and Address Organization Details Recorded Time 07/25/2024 text/html ROS as noted in the HPI Robb is seen today for a routine 30 day visit. He is a 63 yo male, hospitalized at [facility] (06/16/24-06/27/24) for AMS secondary to lithium toxicity, hypercalcemia, hypernatremia, and hyperparathyroidism. Also treated for VLAENCIA, seizure, urinary retention, and new onset afib.Here for rehab and continued care. So far while here, Robb has been doing ok.Still working with rehab, up ambulating in the quispe this am with his walker and supervision of therapist.He got a steroid injection in his left knee by Dr. Red, last week and has been more comfortable, moving easier.Mood remains pleasant and cooperative, he feels good and denies any complaints.Taking po.VSS, no recent readings.Last labs stable.Case discussed with nurse today, no new issues or concerns. His PMH includes CLL, HTN, COPD, schizoaffective disorder, alcoholic hepatitis, hx of chronic lithium therapy with toxicity, PAfib, GERD, HLD, hypothyroidism, recovering EtOHic (sober x 10 yrs), was heavy smoker until 05/2024, and one seizure in 06/2024.MOLST: full code ELGIN RAPP NP [address], [address], [place], [address], [facility] [employer] [facility] 07/25/2024 13:44:53 08/01/2024 text/html ROS as noted in the HPI Robb is seen today for an acute visit. He is a 63 yo male, hospitalized at [facility] (06/16/24-06/27/24) for AMS secondary to lithium toxicity, hypercalcemia, hypernatremia, and hyperparathyroidism. Also treated for VALENCIA, seizure, urinary retention, and new onset afib.Here for rehab and continued care. So far while here, Robb has been doing ok.Still working with rehab, up ambulating in the quispe ad ofelia.He got a steroid injection in his left knee by Dr. Red, now much more comfortable.Mood remains pleasant and cooperative, he feels good and denies any complaints except for some constipation requiring MOM. He is also anxious to return home, SS working on this.Taking po, appetite good.VSS, BP tending to run on the higher side of nl.Last labs stable.Case discussed with nurse today, no new issues or concerns.MAR reviewed, no on any laxatives. His PMH includes CLL, HTN, COPD, schizoaffective disorder, alcoholic hepatitis, hx of chronic lithium therapy with toxicity, PAfib, GERD, HLD, hypothyroidism, recovering EtOHic (sober x 10 yrs), was heavy smoker until 05/2024, and one seizure in 06/2024.MOLST: full code ELGIN RAPP NP [address], [address], [place], [address], [facility] [employer] [facility] 08/12/2024 13:05:23 08/09/2024 text/html ROS as noted in the HPI Robb is seen today for an acute rounding visit. His PMH includes CLL, HTN, COPD, schizoaffective disorder, alcoholic hepatitis, hx of chronic lithium therapy with toxicity, PAfib, GERD, HLD, hypothyroidism, recovering EtOHic (sober x 10 yrs), was heavy smoker until 05/2024, and one seizure in 06/2024. Robb is a 63 yo male, hospitalized at [facility] (06/16/24-06/27/24) for AMS secondary to lithium toxicity, hypercalcemia, hypernatremia, and hyperparathyroidism, treated for VALENCIA, seizure, urinary retention, and new onset afib here for rehab. While in the hospital his meds were changed including lithium. He has been doing well on new regimen and stable here. Labs reviewed and stable. On exam, Robb is alert and states he is doing good . He had a hair cut and smiles when complimented as it looks nice. He has no concerns and reports he received a cortisone injection to the left knee a few weeks ago that is helping. Lungs clear and in NAD.He has a scheduled meeting on 08/12 for discharge planning. MOLST: full code Jessa Schaefer NP [address], [address], [place], [address], [facility] 08/10/2024 10:50:28 08/13/2024 text/html Pt comes to desk c/o right lower abd pain, he thinks from hernia. He says it's better when he lays on his left side, but in new room has to sleep on right side, so bothering more.He says he had a hernia repair on the left 30-40 yrs ago, but they didn't put him to sleep for it (?).No GI sxs.Otherwise he has been doing well and d/c is planned for 08/19. His PMH includes CLL, HTN, COPD, schizoaffective disorder, alcoholic hepatitis, hx of chronic lithium therapy with toxicity, PAfib, GERD, HLD, hypothyroidism, recovering EtOHic (sober x 10 yrs), was heavy smoker until 05/2024, and one seizure in 06/2024. Stacia Celestin MD [address], [address], [place], [address], [facility] 08/13/2024 21:33:12 08/19/2024 text/html ROS as noted in the HPI Robb is seen today for a discharge summary visit. His PMH includes CLL, HTN, COPD, schizoaffective disorder, alcoholic hepatitis, hx of chronic lithium therapy with toxicity, PAfib, GERD, HLD, hypothyroidism, recovering EtOHic (sober x 10 yrs), was heavy smoker until 05/2024, and one seizure in 06/2024. Robb is a 63 yo male, hospitalized at [facility] (06/16/24-06/27/24) for AMS secondary to lithium toxicity, hypercalcemia, hypernatremia, and hyperparathyroidism, treated for VALENCIA, seizure, urinary retention, and new onset afib transferred to [facility] for rehab. While in the hospital his meds were changed including lithium. While here at [facility]: He has been doing well on new regimen and stable here. Labs reviewed and stable. On exam, He is alert and feeling well. He denies any concerns and states he is ready to go home. He is here with his worker and is ready to resume services with [facility]. Per social work: Robb is scheduled to be discharged home today, Monday, August 19, 2024.A referral has been made to [facility] as he has had them in the past. All documentation was previously faxed for review. D/C summary to be forwarded today for review. [facility] has been contacted as well to set up Lifeline services as well as Meals on Wheels. Per [facility] request, they will schedule his follow-up PCP appointment. Robb is very happy to be returning home today. This case will close as of this date. MOLST: full code Jessa Schaefer, DIPTI [address], [address], [place], [address], [facility] - Frequent Browser 08/19/2024 12:34:05
--- OUTSIDE RECORDS SUMMARY | 2025-07-23 17:52 | XMS_ITS | Patient Health Record ---
Author Organization [facility] Address [address] [place] [address] Care Team Providers Care Supervisor Boat Outfitting Name Role Phone Raphael GEE, [facility] Primary Care Provider Jimy Pandya Unavailable [phone] Tata Osorio Unavailable Unavailable Allergies Allergen (clinical [...] 1 Orally QD Active Vitamin D-3 Active Bumpass 3 1000 MG 1 capsule Orally Onc e a day Active [place] Carbonate ER 300 MG 3 tablet at [...] Notes Problem Gastroesophageal reflux disease without esophagitis (102654278) Gastroesophageal reflux disease without esophagitis (K21.9) Active confirmed Problem Iron deficiency anemia due to chronic blood loss (336288129) Iron deficiency anemia due to chronic blood loss (D50.0) Active confirmed Problem Dysphagia (57861173) Pharyngoesophageal dysphagia (R13.14) Active confirmed Problem Iron deficiency anemia (31254623) Iron deficiency anemia, unspecified iron deficiency anemia type (D50.9) Active confirmed Problem Anemia (742280832) Anemia, unspe cified type (D64.9) Active confirmed Problem Gastroesophageal reflux disease with esophagitis (disorder) (269845296) Gastroesophageal reflux disease with esophagitis without hemorrhage [...] OF [place] [address] [place] [address] [phone] [id number] KATHLEEN DESIR Self - patient is the insured MEDICAID OF [facility] [address] [place] [phone] [id number] KATHLEEN DESIR Self - patient is the [...]
== END 2025-07-23 15:26 | disposition home or self-care (01) ==
LOC: HO.HUSH 14:46
PROVIDERS: PCP Internal Medicine; Visit Provider Nurse Practitioner Family
DX: N40.1 Benign prostatic hyperplasia with lower urinary tract symptoms (principal); R39.12 Poor urinary stream; R35.0 Frequency of micturition; R33.9 Retention of urine, unspecified; N39.0 Urinary tract infection, site not specified; R30.0 Dysuria
CPT/HCPCS: 99213; G2211

== ENCOUNTER → 2025-07-23 14:45 | Outpatient (BNVA) | payer MEDICARE, MEDICAID, SELFPAY | PROVIDERS: PCP Internal Medicine; Visit Provider Nurse Practitioner Family | DX: N40.1 Benign prostatic hyperplasia with lower urinary tract symptoms (principal); R39.12 Poor urinary stream; R35.0 Frequency of micturition; R30.0 Dysuria; N39.0 Urinary tract infection, site not specified; Z72.0 Tobacco use | CPT/HCPCS: 51798; 81003; 99212 ==

== ENCOUNTER 2025-07-24 13:32 | Outpatient (AMB) | payer MEDICARE, MEDICAID, SELFPAY ==
--- NOTE | 2025-07-24 13:41 | MHC.OFFVIS ---
Vital Signs 07/24/25 13:42 Height 5 ft 10 in Weight 226 lb BMI 32.4 Intake Visit Reasons: Left Knee Durolane Intake Note: Robb 64 yr old male presents today for his left knee durolane gel injection. He describes his left knee pain as sharp in nature. He has failed the last 3 months of conservative treatment. He wishes to hold off on surgery for as long as possible. He has had cortisone injections which gave him minimal relief. Allergies atorvastatin (From LIPITOR) Allergy (Unknown, Verified 07/23/25 15:21) HIGH LFTS Medication List - Last Reconciled 07/24/25 by Vincenzo Puente MD cholecalciferol (vitamin D3) 50 mcg PO DAILY 90 days dutasteride 0.5 mg PO DAILY 90 days ezetimibe (Zetia) 10 mg PO DAILY ferrous sulfate 325 mg PO DAILY fluticasone furoate 200 mcg/actuation (Arnuity Ellipta) 1 inh inhalation Q24H gabapentin 300 mg PO BID ketoconazole 2% 1 appl topical .Q.h.s. 30 days levothyroxine 112 mcg PO DAILY@0600 lorazepam (Ativan) 0.5 mg PO DAILY PRN naltrexone 50 mg PO DAILY nystatin 1 appl topical DAILY 30 days omega 0-qur-wbl-fish oil 300 mg (120 mg- 180mg)-1,000 mg 1 cap PO BID omega 7-mja-ymd-fish oil 300-1,000 mg 1 cap PO BID 90 days omeprazole 20 mg PO DAILY@0630 paroxetine HCl (Paxil) 20 mg PO DAILY quetiapine (Seroquel) 50 mg PO BEDTIME risperidone (Risperdal) 2 mg PO DAILY PRN risperidone microspheres ER 50 mg (2 mL) IM Q2W terazosin 5 mg PO BEDTIME 30 days PFSH Medical History Aortic stenosis Hx of transfusion of packed red blood cells Cough Sleep apnea Murmur Umbilical hernia History of basal cell carcinoma (BCC) Nicotine dependence, cigarettes, uncomplicated Schizo-affective schizophrenia CLL (chronic lymphocytic leukemia) Hypertension, essential Hypercalcemia due to lithium Non-toxic multinodular goiter Vitamin D deficiency 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 Alcoholic liver disease Depression, major, recurrent Thrombocytosis Obesity BPH (benign prostatic hyperplasia) COPD (chronic obstructive pulmonary disease) Lipid disorder Chronic GERD Hypothyroidism Surgical History History of left cataract surgery History of esophagogastroduodenoscopy (EGD) History of colonoscopy History of basal cell carcinoma (BCC) excision History of surgery History of hernia repair Family History Father HTN (hypertension) CVD (cardiovascular disease) Sister AIDS Maternal Grandfather Unknown family medical history Maternal Grandmother Unknown family medical history Paternal Grandfather Unknown family medical history Paternal Grandmother Unknown family medical history Sister No problems noted. Sister No problems noted. Sister No problems noted. Social History Household Members: None Housing: Apartment Are you a primary career development counselor to a significant other at home: No Do you presently have visiting nurse or other home services: Yes ([facility] program per pt) Alcohol intake: former Comment: restraints Patient Tobacco Use Status: Current everyday Tobacco user Tobacco use type: Cigarette Cigarette Packs Per Day: 1 Cigarettes Per Day: 20.0 e-Cigarette/Vaping Use: Never Used Substance Use Type: Marijuana Advance Directives Date on File: 08/16/22 service: No Current occupational status: disabled Cognitive needs: No Hearing needs: No Vision needs: Yes Physical Exam Vital Signs: BMI result Body Mass Index 32.4 Extrem Other: Left knee examination shows a mild effusion, palpable crepitus with range of motion, pain with range of motion, no instability Office Procedures AMB Joint Injection/Aspiration Joint Injection/Aspiration Primary Site: left knee Prep: site was prepped using aseptic technique Injected: 60 mg of (Durolane viscosupplementation), with 4 mL of and 1% plain lidocaine Procedure: The patient tolerated the procedure well Coding 43262 - Large joint Procedure code (CPT) selection complete Assessment & Plan Assessment & Plan (1) Osteoarthritis of left knee: Code(s): M17.12 - Unilateral primary osteoarthritis, left knee Category: Medical Plan Mr. Rene presents with left knee pain due to osteoarthritis. The risks and benefits of a Durolane viscosupplementation injection were discussed at length with the patient. The patient wished to proceed. He tolerated the injection well. He will continue with his home exercise program. He will contact me prior to his follow-up appointment in 3 months should any questions or concerns arise. Feel free to call me at any time should questions regarding his orthopedic management arise. I spent 21 minutes in reviewing the patient's records and imaging studies, seeing the patient and documenting in the medical record. Orders: Orders AMB Joint Injection/Aspiration Today M17.12 - Unilateral primary osteoarthritis, left knee Coding Level of Care Code Est Pt Level 3 (44989) Complex EM visit Add On G2211 Diagnoses Osteoarthritis of left knee M17.12 CPT Codes Coding - 19034 Large joint: 80648 - Large joint ([id number])
[2025-07-24 13:42] VITALS: BMI 32.4
--- OUTSIDE RECORDS SUMMARY | 2025-07-24 16:29 | XMS_ITS | Patient Health Record ---
Author Organization [facility] Address [address] [place] [address] Care Team Providers Care Bulk Filler Name Role Phone Raphael GEE, [facility] Primary Care Provider Jimy Pandya Unavailable [phone] Tata Osorio Unavailable Unavailable Allergies Allergen (clinical [...] 1 Orally QD Active Vitamin D-3 Active Gaylord 3 1000 MG 1 capsule Orally Onc e a day Active [place] Carbonate ER 300 MG 3 tablet at [...] Notes Problem Gastroesophageal reflux disease without esophagitis (611923481) Gastroesophageal reflux disease without esophagitis (K21.9) Active confirmed Problem Iron deficiency anemia due to chronic blood loss (437465805) Iron deficiency anemia due to chronic blood loss (D50.0) Active confirmed Problem Dysphagia (10851353) Pharyngoesophageal dysphagia (R13.14) Active confirmed Problem Iron deficiency anemia (88375640) Iron deficiency anemia, unspecified iron deficiency anemia type (D50.9) Active confirmed Problem Anemia (260188223) Anemia, unspe cified type (D64.9) Active confirmed Problem Gastroesophageal reflux disease with esophagitis (disorder) (822532919) Gastroesophageal reflux disease with esophagitis without hemorrhage [...] OF [place] [address] [place] [address] [phone] [id number] KATHLEEN DESIR Self - patient is the insured [facility]ICAID [facility] [address] [place] [phone] [id number] KATHLEEN DESIR Self - patient is the insured Medical (General) History Medical History History ICD Code Denies [place],DM,CVA,renal disease Chronic dysphagia--he had a normal upper [...]
--- OUTSIDE RECORDS SUMMARY | 2025-07-24 16:29 | XMS_ITS | Patient Health Record ---
Author Organization [facility] Address [address] [place] [address] Care Team Providers Care Hydrotel Operator Name Role Phone Raphael GEE, [facility] Primary Care Provider Eva Aguayo Unavailable [phone] Allergies Allergen (clinical drug ingredient) Drug/Non Drug [...] 5 MG Oral; Duration: 90 Days Active Ayer 3 1000 MG 1 capsule Orally Thr [...] Problem Acquired hammer toe of right foot (9282019746154 105) Other hammer toe(s) (acquired), right foot (M20.41) Active confirmed Problem Acquired hammer toe of left foot (4505053894819 103) Other hammer toe(s) (acquired), left foot (M20.42) Active confirmed Problem Plantar wart (85067542) Plantar wart (B07.0) Active confirmed Problem Arthritis of left ankle due to trauma (1590802933034 9102) 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) Active confirmed Vital Signs Blood pressure diastolic 78 mm Hg 07/18/2025 Height 5ft9in in 07/18/2025 Blood pressure systolic 124 mm Hg 07/18/2025 Weight 225 lbs 07/18/2025 BMI 33.22 kg/m2 07/18/2025 Encounters Encounter Location Date Provider Diagnosis [facility] [address] [place] [address] 02/12/2025 Eva Campbell Onychomycosis B35.1 ; Other hammer toe(s) (acquired), right foot M20.41 ; Pain in right toe(s) M79.674 ; Pain in left toe(s) M79.675 ; Right foot pain M79.671 ; Plantar wart B07.0 and Other hammer toe(s) (acquired), left foot M20.[address] [facility] [address] 04/25/2025 Eva Campbell Other hammer toe(s) (acquired), right foot M20.41 ; Post-traumatic arthritis of left ankle M19.172 ; Onychomycosis B35.1 ; Pain in right toe(s) M79.674 ; Pain in left toe(s) M79.675 ; Right foot pain M79.671 ; Plantar wart B07.0 and Other hammer toe(s) (acquired), left foot M20.[address] [address] 07/18/2025 Eva Garciaa Onychomycosis B35.1 ; Plantar [...] Details Provider Name:Eva grullon, 10/15/2025 02:45:00 PM, [address] [place] [address], [phone], Insurance Providers Payer Name Payer Address Payer Phone Subscriber Number Group Number Insured Name Patient Relationship to Insured Coverage Start Date Coverage End Date Medicare [employer] [address] [place] [address] [id number] Edgard Robb Self - patient is the insured 0 Medical (General) History Medical History History ICD Code Anxiety Arthritis Back,Hip,and Knee pain CAD (Cholesterol) Cataracts Depression Hiatal hernia High Blood Pressure Psychiatric disorder Reflux ( GERD) Sinusitis Sickle cell disease Surgical History Surgery Date(Month/Year) hernia surgery 02/09 cataract surgery face surgery
== END 2025-07-24 13:54 | disposition home or self-care (01) ==
LOC: HO.HOS 13:33
PROVIDERS: PCP Internal Medicine; Visit Provider Orthopaedic Surgery
DX: M17.12 Unilateral primary osteoarthritis, left knee (principal)
CPT/HCPCS: 20610; 99213

== ENCOUNTER → 2025-07-24 13:32 | Outpatient (BNVA) | payer MEDICARE, MEDICAID, SELFPAY | PROVIDERS: PCP Internal Medicine; Visit Provider Orthopaedic Surgery | DX: M17.12 Unilateral primary osteoarthritis, left knee (principal) | CPT/HCPCS: 20610; 99212; J2003; J7318 ==

== ENCOUNTER 2025-09-03 12:29 | Outpatient (AMB) | payer MEDICARE, MEDICAID, SELFPAY ==
[2025-09-03 12:31] VITALS: BP 132/76; PULSE 76; O2SAT 93; BMI 33.3
--- NOTE | 2025-09-03 12:31 | MHC.PC.OV ---
Vital Signs 09/03/25 12:31 Height 5 ft 10 in Weight 232 lb BMI 33.3 BP 132/76 Blood Pressure Location Lt brachial Position Sitting Pulse 76 Pulse Source Pulse Oximeter Pulse Oximetry (%) 93 Oxygen Delivery Method Room Air Intake Visit Reasons: Annual PE, resched Allergies atorvastatin (From LIPITOR) Allergy (Unknown, Verified 09/03/25 12:32) HIGH LFTS Medication List - Last Reconciled 09/03/25 by Binh Lim MD amlodipine 5 mg PO DAILY cholecalciferol (vitamin D3) 50 mcg PO DAILY 90 days dutasteride 0.5 mg PO DAILY 90 days ezetimibe (Zetia) 10 mg PO DAILY ferrous sulfate 325 mg PO DAILY fluticasone furoate 200 mcg/actuation (Arnuity Ellipta) 1 inh inhalation Q24H gabapentin 300 mg PO BID ketoconazole 2% 1 appl topical .Q.h.s. 30 days levothyroxine 112 mcg PO DAILY@0600 lorazepam (Ativan) 0.5 mg PO DAILY PRN naltrexone 50 mg PO DAILY nystatin 1 appl topical DAILY 30 days omega 7-vlt-kns-fish oil 300 mg (120 mg- 180mg)-1,000 mg 1 cap PO BID omega 6-cpm-osg-fish oil 300-1,000 mg 1 cap PO BID 90 days omeprazole 20 mg PO DAILY@0630 paroxetine HCl (Paxil) 20 mg PO DAILY quetiapine (Seroquel) 50 mg PO BEDTIME risperidone (Risperdal) 2 mg PO DAILY PRN risperidone microspheres ER 50 mg (2 mL) IM Q2W terazosin 5 mg PO BEDTIME 30 days Tobacco use date assessed: 12/20/24 Fall risk assessment: No Falls in past year Last assessed Fall Risk: 09/03/25 Dental Screening Dental Screen Date: 12/20/24 HPI HPI Comments History of Present Illness Details History of Present Illness The patient is a 64 year old male presenting for Physical exam and with multiple complaints including left ankle pain, a skin rash, knee pain, and worsening urinary incontinence. Left Ankle Pain: - The patient reports pain in his left ankle that radiates upwards and underneath the foot, a problem he states first occurred about 40 years ago. - He is unable to put pressure on the affected ankle. - He reports seeing a long wall mining machine helper for this issue earlier this year. Urinary Incontinence / Benign Prostatic Hyperplasia: - The patient reports experiencing urinary leakage upon bending over, sitting down, and coughing, which is becoming progressively more frequent and now occurs all the time. - He has seen a urologist as recently as last month but did not mention the symptoms at that time as they were not as prominent. - He is currently taking two medications for his prostate. Chronic Obstructive Pulmonary Disease (COPD) / Tobacco Use: - The patient smokes both cigarettes and marijuana. - He reports a cough associated with smoking marijuana and acknowledges that his COPD is from smoking cigarettes. - He states he is trying to quit smoking. Osteoarthritis: - The patient reports knee pain and has a known history of osteoarthritis in his knees. - He takes Tylenol for pain, but reports persistent symptoms. Chronic Lymphocytic Leukemia (CLL): - The patient has a known diagnosis of Chronic Lymphocytic Leukemia (CLL). - He has been reassured that the condition is a common, chronic problem and not life-threatening. Hypothyroidism: - The patient has a diagnosis of hypothyroidism and is treated with levothyroxine 112 mcg. Hypertension: - The patient has hypertension, which is well-controlled with amlodipine 5 mg. Health Maintenance: - The patient is due for a colonoscopy, last performed in 2018, but he is refusing the procedure. Medical History: - Chronic Lymphocytic Leukemia (CLL) - Hypothyroidism - Chronic Obstructive Pulmonary Disease (COPD) - Hypertension - Osteoarthritis of both knees - Benign Prostatic Hyperplasia (BPH) - Unspecified psychiatric conditions managed by a psychiatrist. Social History: - Tobacco Use: The patient smokes cigarettes and acknowledges this has caused his COPD; he reports trying to quit. - Substance Use: The patient smokes marijuana, which he states causes him to cough. - Living Situation: The patient lives in a halfway and requires assistance with his care. - Functional Status: The patient uses a walker for ambulation. Health Maintenance - Colon Cancer Screening: The patient is due for a colonoscopy, with his last one being in 2018, but he refuses to undergo the procedure. - Laboratory Monitoring: Blood work was ordered. [place] of Care - The patient is followed by a long wall mining machine helper ( foot doctor ). - He sees a psychiatrist for his mental health. - He is followed by a urologist for his prostate. Medications - Levothyroxine 112 mcg for hypothyroidism - Lorazepam for a psychiatric condition - Paroxetine for a psychiatric condition - Quetiapine for a psychiatric condition - Risperidone for a psychiatric condition - Amlodipine 5 mg for hypertension - Two unspecified medications for his prostate - Tylenol for pain [facility] Medical History Aortic stenosis Hx of transfusion of packed red blood cells Cough Sleep apnea Murmur Umbilical hernia History of basal cell carcinoma (BCC) Nicotine dependence, cigarettes, uncomplicated Schizo-affective schizophrenia CLL (chronic lymphocytic leukemia) Hypertension, essential Hypercalcemia due to lithium Non-toxic multinodular goiter Vitamin D deficiency 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 Alcoholic liver disease Depression, major, recurrent Thrombocytosis Obesity BPH (benign prostatic hyperplasia) COPD (chronic obstructive pulmonary disease) Lipid disorder Chronic GERD Hypothyroidism Surgical History History of left cataract surgery History of esophagogastroduodenoscopy (EGD) History of colonoscopy History of basal cell carcinoma (BCC) excision History of surgery History of hernia repair Family History Father HTN (hypertension) CVD (cardiovascular disease) Sister AIDS Maternal Grandfather Unknown family medical history Maternal Grandmother Unknown family medical history Paternal Grandfather Unknown family medical history Paternal Grandmother Unknown family medical history Sister No problems noted. Sister No problems noted. Sister No problems noted. Social History Household Members: None Housing: Apartment Are you a primary caretaker grounds to a significant other at home: No Do you presently have visiting nurse or other home services: Yes ([facility] program per pt) Alcohol intake: former Comment: restraints Patient Tobacco Use Status: Current everyday Tobacco user Tobacco use type: Cigarette Cigarette Packs Per Day: 1 Cigarettes Per Day: 20.0 e-Cigarette/Vaping Use: Never Used Substance Use Type: Marijuana Advance Directives Date on File: 08/16/22 service: No Current occupational status: disabled Cognitive needs: No Hearing needs: No Vision needs: Yes Questionnaire Thrive Questionnaire Date Thrive assessed: 10/02/24 I am a: Parent/Caregiver What is your living situation today?: I choose not to answer this question Within the past 12 months, did the food you bought not last and you didn't have the money to get more?: I choose not to answer this question Within the past 12 months, did you worry whether your food would run out before you got money to buy more?: I choose not to answer this question Do you have trouble paying for medicines?: I choose not to answer this question Do you have trouble getting transportation to medical appointments?: I choose not to answer this question Do you have trouble paying your heating and electricity bill?: I choose not to answer this question Do you have trouble taking care of your child, family member or friend?: I choose not to answer this question Do you have trouble with day-to-day activities such as bathing, preparing meals, shopping, managing finances, etc.?: I choose not to answer this question Are you currently unemployed and looking for a job?: I choose not to answer this question Are you interested in more education?: I choose not to answer this question Please select the resources that you would like help with: None Currently or been in a relationship where the following occur: I choose not to answer THRIVE Score: 0 PATSY-7 AMB Questionnaire PATSY-7 Date PATSY - 7 assessed: 10/02/24 Source: Developed by Drs. Jimy Franco, Madison Berry, Tyler Guy and colleagues, with an educational herb from [employer]. Review of Systems Narrative Review of Systems - General: No fever no chills - Neurological: No headaches no dizziness - Ear nose throat: No sore throat no hearing difficulty no ear pain - Cardiovascular: No syncope, no chest pain, no palpitations - Gastrointestinal: No nausea vomiting or diarrhea Physical exam (Primary Care) Vital Signs: Last Vital Signs Pulse 76 09/03/25 12:31 BP 132/76 09/03/25 12:31 Pulse Ox 93 09/03/25 12:31 Oxygen Delivery Method Room Air 09/03/25 12:31 BMI result Body Mass Index 33.3 Tobacco/Smoking Status: Tobacco use Status Tobacco use date assessed 12/20/24 09/03/25 12:36 Patient Tobacco Use Status Current everyday Tobacco 09/03/25 12:36 Tobacco use type Cigarette 09/03/25 12:36 e-Cigarette/Vaping Use Never Used 09/03/25 12:36 Thrive Assessment: Date of Thrive Assessment Date Thrive assessed 10/02/24 09/03/25 12:36 Currently or been in a relationship where the following occur: I choose not to answer Narrative Physical Exam General: Cooperative, healthy appearing, comfortable, no acute distress Orientation: Patient oriented x3 Head: Normal to inspection Ears: Within normal limit visually Nose: Normal external nose present Face and sinus: Normal facial exam Eyes: Appearance normal, extraocular movement intact pupils reactive Neck: Normal visual inspection and supple Respiratory: Normal respiratory effort and able to speak in complete sentences. Clear to auscultation, no stridor Cardiovascular: S1 and S2 RRR GI: Normal to inspection. Soft to palpation and nontender, obese Skin: Turgor normal, several scratach morgan both forearms Neuro: Patient oriented x3, motor equal, use walker, unsteady on feet Extremities: no edema, ankle no swelling or pain with palpation, mobile . Coding Level of Care Code Est Pt Level 3 (68779) Est Pt Prev Care >65y(60612) Diagnoses Encounter for general adult medical examination with abnormal findings Z00. Chronic pain of left ankle M25.572; G89.29 Chronicity: chronic Hypertension, essential I10 Lipid disorder E78.9 Hypothyroidism, unspecified type E03.9 Hypothyroidism type: unspecified Schizo-affective schizophrenia F25.9 Chronic GERD K21.9 Alcoholic liver disease K70.9 Hypercalcemia due to lithium E83.52 Benign prostatic hyperplasia with urinary frequency N40.1; R35.0 Lower urinary tract symptom detail: urinary frequency Lower urinary tract symptom presence: symptoms present Thrombocytosis D47.3 Erythrocytosis D75.1 CLL (chronic lymphocytic leukemia) C91.10 Osteoarthritis involving multiple joints on both sides of body M15.9 Memory deficit R41.3 Learning disability F81.9 Other emphysema J43.8 COPD type: emphysema Emphysema type: other Impaired mobility and ADLs Z74.09; Z78.9 Nicotine dependence, cigarettes, uncomplicated F17.210 Assessment & Plan Assessment & Plan (1) Encounter for general adult medical examination with abnormal findings: Code(s): Z00.01 - Encounter for general adult medical examination with abnormal findings Category: Medical (2) Ankle pain, left: Code(s): M25.572 - Pain in left ankle and joints of left foot Category: Medical Qualifiers: Chronicity: chronic Qualified Code(s): M25.572 - Pain in left ankle and joints of left foot; G89.29 - Other chronic pain (3) Hypertension, essential: Code(s): I10 - Essential (primary) hypertension Category: Medical (4) Lipid disorder: Code(s): E78.9 - Disorder of lipoprotein metabolism, unspecified Category: Medical (5) Hypothyroidism: Code(s): E03.9 - Hypothyroidism, unspecified Category: Medical Qualifiers: Hypothyroidism type: unspecified Qualified Code(s): E03.9 - Hypothyroidism, unspecified (6) Schizo-affective schizophrenia: Code(s): F25.9 - Schizoaffective disorder, unspecified Category: Medical (7) Chronic GERD: Code(s): K21.9 - Gastro-esophageal reflux disease without esophagitis Category: Medical (8) Alcoholic liver disease: Code(s): K70.9 - Alcoholic liver disease, unspecified Category: Medical (9) Hypercalcemia due to lithium: Code(s): E83.52 - Hypercalcemia Category: Medical (10) BPH (benign prostatic hyperplasia): Code(s): N40.0 - Benign prostatic hyperplasia without lower urinary tract symptoms Category: Medical Qualifiers: Lower urinary tract symptom detail: urinary frequency Lower urinary tract symptom presence: symptoms present Qualified Code(s): N40.1 - Benign prostatic hyperplasia with lower urinary tract symptoms; R35.0 - Frequency of micturition (11) Thrombocytosis: Comment: Management through Hematology [facility] Code(s): D47.3 - Essential (hemorrhagic) thrombocythemia Category: Medical (12) Erythrocytosis: Code(s): D75.1 - Secondary polycythemia Category: Medical (13) CLL (chronic lymphocytic leukemia): Code(s): C91.10 - Chronic lymphocytic leukemia of B-cell type not having achieved remission Category: Medical (14) Osteoarthritis involving multiple joints on both sides of body: Code(s): M15.9 - Polyosteoarthritis, unspecified Category: Medical (15) Memory deficit: Code(s): R41.3 - Other amnesia Category: Medical (16) Learning disability: Code(s): F81.9 - Developmental disorder of scholastic skills, unspecified Category: Social Hx (17) COPD (chronic obstructive pulmonary disease): Code(s): J44.9 - Chronic obstructive pulmonary disease, unspecified Category: Medical Qualifiers: COPD type: emphysema Emphysema type: other Qualified Code(s): J43.8 - Other emphysema (18) Impaired mobility and ADLs: Code(s): Z74.09 - Other reduced mobility; Z78.9 - Other specified health status Category: Medical (19) Nicotine dependence, cigarettes, uncomplicated: Comment: (>30pyh) Code(s): F17.210 - Nicotine dependence, cigarettes, uncomplicated Category: Medical Plan Patient Instructions - You will need to get blood work and an X-ray of your left ankle today. - Please call your urologist (bladder doctor) to make an appointment to talk about your worsening urine leakage. - For your pain, continue using only Tylenol. We cannot give you stronger pain pills like narcotics because they can have bad interactions with your other medications. - If you need stronger pain treatment, you will have to see a pain specialist. - Try not to scratch the rash on your hand, as scratching is making it worse. - Please schedule a follow-up appointment to be seen again in December. Orders: Orders Hemoglobin A1c Today C91.10 - Chronic lymphocytic leukemia of B-cell type not having achieved remission, D47.3 - Essential (hemorrhagic) thrombocythemia, D75.1 - Secondary polycythemia, E03.9 - Hypothyroidism, unspecified, E78.9 - Disorder of lipoprotein metabolism, unspecified, E83.52 - Hypercalcemia, F17.210 - Nicotine dependence, cigarettes, uncomplicated, F25.9 - Schizoaffective disorder, unspecified, F81.9 - Developmental disorder of scholastic skills, unspecified, I10 - Essential (primary) hypertension, J43.8 - Other emphysema, K21.9 - Gastro-esophageal reflux disease without esophagitis, K70.9 - Alcoholic liver disease, unspecified, M15.9 - Polyosteoarthritis, unspecified, N40.1 - Benign prostatic hyperplasia with lower urinary tract symptoms, R35.0 - Frequency of micturition, R41.3 - Other amnesia, Z00.01 - Encounter for general adult medical examination with abnormal findings, Z74.09 - Other reduced mobility, Z78.9 - Other specified health status Complete Blood Count Auto Diff Today C91.10 - Chronic lymphocytic leukemia of B-cell type not having achieved remission, D47.3 - Essential (hemorrhagic) thrombocythemia, D75.1 - Secondary polycythemia, E03.9 - Hypothyroidism, unspecified, E78.9 - Disorder of lipoprotein metabolism, unspecified, E83.52 - Hypercalcemia, F17.210 - Nicotine dependence, cigarettes, uncomplicated, F25.9 - Schizoaffective disorder, unspecified, F81.9 - Developmental disorder of scholastic skills, unspecified, I10 - Essential (primary) hypertension, J43.8 - Other emphysema, K21.9 - Gastro-esophageal reflux disease without esophagitis, K70.9 - Alcoholic liver disease, unspecified, M15.9 - Polyosteoarthritis, unspecified, N40.1 - Benign prostatic hyperplasia with lower urinary tract symptoms, R35.0 - Frequency of micturition, R41.3 - Other amnesia, Z00.01 - Encounter for general adult medical examination with abnormal findings, Z74.09 - Other reduced mobility, Z78.9 - Other specified health status Comprehensive Met. Panel Today C91.10 - Chronic lymphocytic leukemia of B-cell type not having achieved remission, D47.3 - Essential (hemorrhagic) thrombocythemia, D75.1 - Secondary polycythemia, E03.9 - Hypothyroidism, unspecified, E78.9 - Disorder of lipoprotein metabolism, unspecified, E83.52 - Hypercalcemia, F17.210 - Nicotine dependence, cigarettes, uncomplicated, F25.9 - Schizoaffective disorder, unspecified, F81.9 - Developmental disorder of scholastic skills, unspecified, I10 - Essential (primary) hypertension, J43.8 - Other emphysema, K21.9 - Gastro-esophageal reflux disease without esophagitis, K70.9 - Alcoholic liver disease, unspecified, M15.9 - Polyosteoarthritis, unspecified, N40.1 - Benign prostatic hyperplasia with lower urinary tract symptoms, R35.0 - Frequency of micturition, R41.3 - Other amnesia, Z00.01 - Encounter for general adult medical examination with abnormal findings, Z74.09 - Other reduced mobility, Z78.9 - Other specified health status TSH reflex Free T4 Today C91.10 - Chronic lymphocytic leukemia of B-cell type not having achieved remission, D47.3 - Essential (hemorrhagic) thrombocythemia, D75.1 - Secondary polycythemia, E03.9 - Hypothyroidism, unspecified, E78.9 - Disorder of lipoprotein metabolism, unspecified, E83.52 - Hypercalcemia, F17.210 - Nicotine dependence, cigarettes, uncomplicated, F25.9 - Schizoaffective disorder, unspecified, F81.9 - Developmental disorder of scholastic skills, unspecified, I10 - Essential (primary) hypertension, J43.8 - Other emphysema, K21.9 - Gastro-esophageal reflux disease without esophagitis, K70.9 - Alcoholic liver disease, unspecified, M15.9 - Polyosteoarthritis, unspecified, N40.1 - Benign prostatic hyperplasia with lower urinary tract symptoms, R35.0 - Frequency of micturition, R41.3 - Other amnesia, Z00.01 - Encounter for general adult medical examination with abnormal findings, Z74.09 - Other reduced mobility, Z78.9 - Other specified health status LDL Cholesterol Direct Today C91.10 - Chronic lymphocytic leukemia of B-cell type not having achieved remission, D47.3 - Essential (hemorrhagic) thrombocythemia, D75.1 - Secondary polycythemia, E03.9 - Hypothyroidism, unspecified, E78.9 - Disorder of lipoprotein metabolism, unspecified, E83.52 - Hypercalcemia, F17.210 - Nicotine dependence, cigarettes, uncomplicated, F25.9 - Schizoaffective disorder, unspecified, F81.9 - Developmental disorder of scholastic skills, unspecified, I10 - Essential (primary) hypertension, J43.8 - Other emphysema, K21.9 - Gastro-esophageal reflux disease without esophagitis, K70.9 - Alcoholic liver disease, unspecified, M15.9 - Polyosteoarthritis, unspecified, N40.1 - Benign prostatic hyperplasia with lower urinary tract symptoms, R35.0 - Frequency of micturition, R41.3 - Other amnesia, Z00.01 - Encounter for general adult medical examination with abnormal findings, Z74.09 - Other reduced mobility, Z78.9 - Other specified health status XR ankle LT 2V Today M25.572 - Pain in left ankle and joints of left foot
== END 2025-09-03 14:13 | disposition home or self-care (01) ==
LOC: HO.HMCC 12:30
PROVIDERS: PCP Internal Medicine; Visit Provider Internal Medicine
DX: Z00.01 Encounter for general adult medical examination with abnormal findings (principal); F25.9 Schizoaffective disorder, unspecified; D47.3 Essential (hemorrhagic) thrombocythemia; C91.10 Chronic lymphocytic leukemia of B-cell type not having achieved remission; J43.8 Other emphysema; M25.572 Pain in left ankle and joints of left foot; G89.29 Other chronic pain; I10 Essential (primary) hypertension; E78.9 Disorder of lipoprotein metabolism, unspecified; E03.9 Hypothyroidism, unspecified; K21.9 Gastro-esophageal reflux disease without esophagitis; K70.9 Alcoholic liver disease, unspecified; E83.52 Hypercalcemia; N40.1 Benign prostatic hyperplasia with lower urinary tract symptoms; R35.0 Frequency of micturition; D75.1 Secondary polycythemia; M15.9 Polyosteoarthritis, unspecified; R41.3 Other amnesia; F81.9 Developmental disorder of scholastic skills, unspecified; Z74.09 Other reduced mobility

== ENCOUNTER 2025-09-03 12:29 | Outpatient (REF) | payer MEDICARE, MEDICAID, SELFPAY ==
--- NOTE | ~2025-09-03 | XR_ITS ---
EXAMINATION: XR ANKLE, LEFT CLINICAL INFORMATION: M25.572 - Pain in left ankle and joints of left foot COMPARISON: None available. TECHNIQUE: AP, lateral, and mortise views of the left ankle. FINDINGS: No visible acute fracture, dislocation or suspicious bony lesion. Alignment is anatomic. No erosions. Joint spaces are maintained. Plantar and posterior calcaneal spurring. No abnormal soft tissue calcification XR/XR ankle LT 2V IMPRESSION: No acute findings. Calcaneal spurring. Electronically signed by: Amador Barr MD 09/04/2025 07:20 AM [facility]
[2025-09-03 16:26] LABS: Hematocrit 48.8 % (42.0-52.0); Hemoglobin 16.6 g/dl (14.0-18.0); Imm Gran Abs Auto 0.08 X10*3/uL (0.00-0.03); Imm Gran Pct Auto 0.4 % (0.0-0.4); MANUAL DIFF FLAG SCAN; Mean Corpuscular HGB Conc 34.0 g/dl (31.0-36.0); Mean Corpuscular Hemoglobin 30.6 pg (27.0-33.0); Mean Corpuscular Volume 90.0 fL (80.0-98.0); NRBC Abs Auto 0.000 X10*3/uL (0.0-0.012); NRBC Pct Auto 0.0 /100WBC (0.0-0.2); Platelet Count 192 X10*3/uL (160-400); Red Blood Count 5.42 X10*6/uL (4.60-5.80); SCAN SMEAR FLAG 1; White Blood Count 19.0 X10*3/uL (4.8-10.8)
[2025-09-03 16:56] LABS: Alanine Aminotransferase 17 U/L (0-40); Albumin Level 4.5 g/dL (3.5-5.0); Alkaline Phosphatase 108 U/L (39-117); Anion Gap 13 (12-20); Aspartate Amino Transferase 31 U/L (5-37); Blood Urea Nitrogen 17 mg/dL (9-16); Calcium 10.0 mg/dL (8.4-10.2); Carbon Dioxide 24 mmol/L (22-29); Chloride 103 mmol/L (96-108); Estimated Glomerular Filt Rate 59; Potassium 4.3 mmol/L (3.3-5.1); Sodium 136 mmol/L (135-145); Total Protein 7.4 g/dL (6.5-8.0)
[2025-09-03 17:10] LABS: Lymphocytes Absolute Auto 13.1 X10*3/uL (1.2-4.9)
--- OUTSIDE RECORDS SUMMARY | 2025-09-03 17:18 | XMS_ITS | Data Portability ---
Author Organization [facility], Main Office Address [address], [address] [place] [address] Care Team Providers Care Strand Galvanizer Name Role Phone ELVA PERRY - 2ND [...] Details Recorded Time Chronic lymphoid leukemia, disease 87185063 Active 2023 Jessa Schaefer NP [address] [facility], [address], [place], [address], [facility] [employer] [facility] 4 16:32:25 Chronic obstructive pulmonary disease 45516757 Active 2023 Jessa Schaefer NP [address] [facility], [address], [place], [address], [facility] [employer] [facility] 4 16:32:34 Hypertensiv e disorder 51719009 Active 2023 Jessa Schaefer NP [address] [facility], [address], [place], [address], [facility] [employer] [facility] 4 16:32:38 Paroxysmal atrial fibrillatio n 365510336 Active 2023 Jessa Schaefer NP [address] [facility], [address], [place], [address], [facility] [employer] [facility] 4 16:32:56 Alcoholic hepatitis 112960945 Active 2023 Jessa Schaefer NP [address], [address], [place], [address], [facility] 4 16:33:27 Former heavy tobacco smoker 1201207955093 00 Active 2023 Jessa Schaefer NP [address], [address], [place], [address], [facility] 4 16:34:05 Schizoaffec tive schizophren ia 723910943 Active 2023 Jessa Schaefer NP [address], [address], [place], [address], [facility] 4 16:34:46 Toxic encephalopa thy 52362505 Active 2023 Jessa Schaefer NP [address] [facility], [address], [place], [address], [facility] 4 16:37:53 Hyperparath yroidism 01467457 Active 2023 Jessa Schaefer NP [address] [facility], [address], [place], [address], [facility] 4 16:35:37 Hypernatrem ia 553441801 Active 2023 Jessa Schaefer NP [address] [facility], [address], [place], [address], [facility] 4 16:35:42 Aspiration pneumonia 912032926 Active 2023 Jessa Schaefer NP [address], [place], [address], [facility] 4 16:36:03 Seizure 82615296 Active 2023 Jessa Schaefer NP [address], [address], [place], [address], [facility] 4 16:36:17 Asthenia 51377904 Active 2023 Jessa Schaefer NP [address], [address], [place], [address], [facility] [employer] [facility] 4 16:36:31 Recurrent falls 461513283 Active 2023 Jessa Schaefer NP [address] [facility], [address], [place], [address], [facility] [employer] [facility] 4 16:36:42 Retention of urine 447184195 Active 2023 Jessa Scheafer NP [address] [facility], [address], [place], [address], [facility] [employer] [facility] 4 16:37:19 Pressure injury stage III 6671560616 Active 2023 Jessa Schaefer NP [address] [facility], [address], [place], [address], [facility] [employer] [facility] 4 16:37:40 Gastroesoph ageal reflux disease 800718702 Active 2023 Jessa Schaefer NP [address] [facility], [address], [place], [address], [facility] [employer] [facility] 4 16:40:36 Hypothyroid ism 36456865 Active 2023 Jessa Schaefer NP [address] [facility], [address], [place], [address], [facility] [employer] [facility] 4 17:01:14 Hyperlipide ana maria 80691612 Active 2023 Jessa Schaefer NP [address] [facility], [address], [place], [address], [facility] [employer] [facility] 4 17:03:33 Iron deficiency 99798563 Active 2023 Stacia Celestin MD [address] [facility], [address], [place], [address], [facility] [employer] [facility] 4 22:02:49 Problem Notes None recorded. Medical Equipment None Reported. Allergies Allergen ID Allergen Name Allergen Category Reaction Reaction Severity Criticality Documentation Date Start Date Code Code System Note Provider Name and Address Organization Details Recorded Time 26908 atorvasta tin medicatio n other Not available unabletoasse ss 06/28/2024 18170 RxNorm unkno wn Jessa Schaefer NP [address] [facility], [address], [place], [address], [facility] 4 16:01:31 Vitals Date Recorded Body height Heart rate Respiratory rate Body temperature Oxygen saturation Systolic And Diastolic Provider Name and Address Organization Details Last Updated DateTime 4 177.8 cm 72 /min 18 /min 98 [degF] 98 % 130/72 mm[Hg] ELGIN RAPP NP [address] [facility], [address], [place], [address], [facility] 4 13:26:10 Date Recorded Body height Heart rate Respiratory rate Body temperature Oxygen saturation Systolic And Diastolic Provider Name and Address Organization Details Last Updated DateTime 4 177.8 cm 71 /min 18 /min 98 [degF] 98 % 130/72 mm[Hg] ELGIN RAPP NP [address] [facility], [address], [place], [address], [facility] 4 13:04:54 Date Recorded Body height Body mass index (BMI) Body weight Heart rate Respiratory rate Body temperature Oxygen saturation Systolic And Diastolic Provider Name and Address Organization Details Last Updated DateTime 4 177.8 cm 28.1 kg/m2 53739.1 g 66 /min 18 /min 98 [degF] 98 % 130/72 mm[Hg] Jessa Schaefer NP [address] [facility], [address], [place], [address], [facility] 4 10:32:35 Date Recorded Body height Body mass index (BMI) Body weight Heart rate Respiratory rate Body temperature Oxygen saturation Systolic And Diastolic Provider Name and Address Organization Details Last Updated DateTime 4 177.8 cm 28.2 kg/m2 21001.9 g 78 /min 18 /min 97.8 [degF] 97 % 130/72 mm[Hg] Stacia Celestin MD [address] [facility], [address], [place], [address], [facility] 4 21:24:42 Date Recorded Body height Body weight Heart rate Respiratory rate Body temperature Oxygen saturation Systolic And Diastolic Provider Name and Address Organization Details Last Updated DateTime 4 177.8 cm 95868.1 g 73 /min 18 /min 97.5 [degF] 97 % 130/72 mm[Hg] Jessa Schaefer, DIPTI [address] [facility], [address], [place], [address], [facility] [employer] [facility] 12:03:57 Social History Question Answer Notes LastModified by Organizat ion Details LastModified Time Tobacco Smoking Status Former Smoker Jessa Schaefer, DIPTI [address] [facility], [address], [place], [address], [facility] [employer] 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 [id number] Information not available 06/28/2024 Family History Nothing Reported Notes:Does not think mom and dad had cancer, dm or heart disease. aunt had cancer unclear of kind Medical History No medical history recorded. Immunizations Vaccine Type Date Status Note Provider Nam e and Address Organization Details Recorded Time influenza, unspecified formulation 07/15/2022 completed Pina Donaldo [facility] 07/03/2024 15:58:07 SARS-COV-2 (COVID-19) vaccine, UNSPECIFIED 07/15/2022 completed Pina Donaldo [facility] 07/03/2024 15:58:26 SARS-COV-2 (COVID-19) vaccine, UNSPECIFIED 10/19/2020 completed Pina Donaldo [facility] 07/03/2024 15:58:33 SARS-COV-2 (COVID-19) vaccine, UNSPECIFIED 11/09/2020 completed Pina Donaldo [facility] 07/03/2024 15:58:43 SARS-COV-2 (COVID-19) vaccine, UNSPECIFIED 07/14/2021 completed Pina Donaldo [facility] 07/03/2024 15:58:58 Tdap 12/08/2016 completed Pina Donaldo [facility] 07/03/2024 15:59:16 Past Encounters Encounter ID Performer Location Encounter Start Date Encounter Closed Date Diagnosis/Indication Diagnosis SNOMED-CT Code Diagnosis ICD10 Code Diagnosis IMO Codes Diagnosis Note [id number] Jessa Schaefer NP [address] [address] 06/28/2024 14:47:56 07/03/2024 11:48:25 Toxic encephalopathy 29085603 G92.9 felt multifacto rial improved with IVF, meds, and carefelt he improved cognitivel y since hospitaliz ationmonit or for improvemen t or declineBIM S 09/01 however vague on admissionm onitor for need to invoke Schizoaffe ctive schizophrenia 058560669 F25.0 with mood disorderDu e to the lithium toxicity he was started on risperdol consta IM every 14 days, last dose on 06/27/24, next due 07/12. Tylenol, lithium, stopped and recommend not to go back on lithium in the futureparo xetine decreased to 20 mg daily.psyc h eval and treat prnmonitor Asthenia 39697177 R53.1 PT/OT eval and treatsuppo rtive caremonito r Recurrent falls 90487678 2 R29.6 hx of fallsno ac for afibsuppor tive carePT/OT eval and treatmonit or Seizure 83895809 R56.9 with one seizure in the hospital felt to to elyte imbalances neurology recommende d no keppramoni tor for further seizures, deficits Aspiration pneumonia 422 060028 J69.0 required IVF, abx and ventilatio n support in the ICUnow resovledre commended nDD3 diet with thin liquidsspe ech to eval and treatconsi ashlee repeat xray in a 3-4 weeksmonit or Hypernatremia 763301390 E87.0 resolved with IVF and treatmentm onitorbmp on 07/02 Hyperparathyroidism 6699 9008 E21.3 resolved with calcitonin inptno further tx per dc summarymon itor for further need of meds Paroxysmal atrial fibrillation 390756707 I48.0 paroxysmal afib reverted to nsrac not rec due to increased fall riskmonito r Pressure i njury stage III 8024584041 L89.93 with new stage III sacral ulcerns wash, pat dry, foam dressing dailyair loss bedturn and reposition q 2 hoursbarri er cream with zince bid and prnwound consultdie tician to assess nutritiona l needsmonit or Retention of urine 65790 4002 R33.9 resolved in hospitalfl omax 0.8 mg po qhsdutaste ride 0.5 mg po qhsmonitor Former hea vy tobacco smoker [id number] 22083 Z87.891 pt states he quit 1month agorefuses NRTsupport juan caremonito r Hypertensive disorder 38 657586 I10 stable hereamlodo pine5 mg po qhsmonitor Chronic ob structive pulmonary disease 91128032 J44.9 flovent hfaduoneb q 3 hours prn sob/wheezi ngmonitor for s/s of resp distress Chronic ly mphoid leukemia, disease 13177047 C91.10 unclear if b cell on medical historyhx with chronic leukocysto sisferrous sulfate 325 mg po dailymonit orcbc weekly next on 07/02 Alcoholic hepatitis 2358 24580 F10.988 hx of alcohol use and hepatitisn o tyl usenaltrex one 50 mg po dailyavoid liver toxic meds when ablemonito r for s/s hepatitis Gastroesop hageal reflux disease 900916968 K21.9 contomepra zole 20 mg po dailymonit or Hypothyroidism 52925778 E03.9 levothyrox ine 112 mcg po dailymonit or levels prn Hyperlipidemia 34711733 E78.5 lopid 600 mg po bidmonitor [id number] Stacia Celestin MD [address] [address] 07/01/2024 17:56:50 07/03/2024 12:23:17 Toxic encephalopathy 89777311 G92.8 [place] to be multifacto rial due to multiple metabolic abnormalit ies.Appare ntly back to baseline now after IV fluids and correction of metabolic imbalances .Continues to be mildly impaired with a BIMS of 09/01.Cont inue supportive careMonito r mood and behaviors. Psych consult prn. Schizoaffe ctive schizophrenia 070815995 F25.0 Longstandi ng mood disorder, with support services in the community. Can no longer be on lithium.Co ntinue risperdol consta 50 mg IM every 14 days, last dose on 06/27/24, next due 07/12; benztropin e 1 mg qd; and paroxetine 20 mg qd.Monitor mood.Seems to have poor judgement, monitor for need to invoke.Con sult psych due to complicate d situation. Asthenia 47654601 R53.1 Very deconditio laurence.Needs PT/OT for strengthen ing, balance, gait training, safety and function.C ontinue fall precaution s.Monitor for safety. Recurrent falls 61717123 2 R29.6 As above. Seizure 18125125 G40.89 Seizure in the hospital felt due to metabolic imbalances .With abnormal EEG. Txed with Keppra inpt, not continued. Neurology recommende d repeat EEG after recovery.M onitor for seizure activity Aspiration pneumonia 422 167340 J69.0 Resolved.C ontinue SALESFORCE SPECIALIST interventi ons.Contin ue modified diet.Monit or for aspiration . Hypernatremia 030828344 E87.0 Bumped while inpt. without prior hx of elevation. Improved by the time of d/cMonitor wkly x 4, then prn if stable.Enc ourage po fluids. Hyperparathyroidism 6699 9008 E21.2 Txed with calcitonin inpt, but not kept on this at d/c/Monito r Ca+ levels weekly.Lab s ordered for AM. Paroxysmal atrial fibrillation 337248015 I48.0 New dx for this pt.Now in NSR.Monito r for recurrence .Cardio f/u prn if recurrence . Pressure i njury stage III 6232173067 L89.153 Continue wound care as ordered.Co ntinue liquid protein 30 ml qd for help with healing.Mo nitor for healing. Retention of urine 90249 4002 R33.8 Likely due to acute illness.No w resolved.C ontinue tamsulosin 0.8 mg qhs and dutasterid e 0.5 mg qhs.Monito r urinary function. Former hea vy tobacco smoker [id number] 15487 Z87.891 In hx, reportedly quit a month ago.Encour age continued abstinence . Hypertensive disorder 38 787175 I10 Only one BP checked since here and it was WNLContinu e amlodipine 5 mg qdWill order daily vitals x 1 wk, then weekly if stable. Chronic ob structive pulmonary disease 33679369 J43.8 No current sxs.Contin ue Annuity Ellipta 100 mcg 1 puff qd and duonebs q 3 hrs prn.Monito r resp status. Chronic ly mphoid leukemia, disease 58572731 C91.10 Stage 0 disease as of 11/2023 per last heme/onc noteOverdu e for f/uMonitor labs.F/U with Dr. Osorio. Alcoholic hepatitis 2358 39436 F10.988 In hx, LFTs close to normal.Ken id hepatoxic meds.Monit or labs Gastroesop hageal reflux disease 686362478 K21.9 No current sxs.Contin ue omeprazole 20 mg qdMonitor GI sxs. Hypothyroidism 35638790 E03.8 TSH sl low inpt, but with nl FT4.Contin ue levothyrox ine 112 mcg qdMonitor TSH and FT4 periodical ly. Hyperlipidemia 80450323 E78.49 In hx.Continu e lovastatin 600 mg BID, gemfibrozi l 600 mg BID, omega-3 1000 mg BID, and Zetia 10 mg qd.Monitor labs yearly. 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 Alcohol dependence 41815 003 F10.20 Sober x 10 years.Cont inue naltrexone 50 mg qd.Encoura ge continued sobriety. [id number] Jessa Schaefer NP [address] [address] 07/04/2024 08:52:46 07/08/2024 09:33:33 Toxic encephalopathy 50143747 G92.8 [place] to be multifacto rial due to multiple metabolic abnormalit ies.possib ly back to baseline now after IV fluids and correction of metabolic imbalances .Continues to be mildly impaired with a BIMS of 15 on admitConti nue supportive careMonito r mood and behaviors. Psych consult prn. Hyperparathyroidism 6699 9008 E21.2 Txed with calcitonin inpt, but not kept on this at d/cMonitor Ca+ levels weekly. calcium 9.9 stablemoni tor prn Hypernatremia 552950052 E87.0 Bumped while inpt. without prior hx of elevation. Improved by the time of d/cMonitor wkly x 4, then prn if stable.Enc ourage po fluids. Seizure 85838773 G40.89 Seizure in the hospital felt due to metabolic imbalances .With abnormal EEG. Txed with Keppra inpt, not continued as neurology felt he does not need.Neuro logy recommende d repeat EEG after recovery.M onitor for seizure activity Schizoaffe ctive schizophrenia 047781885 F25.0 Longstandi ng mood disorder, with support [...] paperwork only todayConsu lt psych requested Asthenia 14911901 R53.1 Very deconditio laurence and requires direction and cueing todayNeeds PT/OT for strengthen ing, balance, gait training, safety and function.C ontinue fall precaution s.Monitor for safety. Recurrent falls 57393723 2 R29.6 As above. Aspiration pneumonia 422 291950 J69.0 Resolved in hospitalCo ntinue SALESFORCE SPECIALIST interventi ons.Contin ue modified diet.Monit or for aspiration . Paroxysmal atrial fibrillation 559225266 I48.0 New dx for this pt. in hospital, hr and bp stableNow in NSR.Monito r for recurrence .Cardio f/u prn if recurrence . Pressure i njury stage III 1209622615 L89.153 Continue wound care as ordered to coccyxCont inueliquid protein 30 ml qd for help with healing.Mo nitor for healing. Retention of urine 99623 4002 R33.8 resolved due to acute hospitaliz ationConti nuetamsulo sin 0.8 mg qhsdutaste ride 0.5 mg qhs.Monito r urinary function. Hypertensive disorder 38 375727 I10 bp stable on 07/02, need new bp, will request todayConti nueamlodip ine 5 mg qdWill order daily vitals x 1 wk, then weekly if stable. Chronic ob structive pulmonary disease 09471453 J43.8 No current sxs.Contin ueAnnuity Ellipta 100 mcg 1 puff qd and duonebs q 3 hrs prn.Monito r resp status. Chronic ly mphoid leukemia, disease 64625120 C91.10 Stage 0 disease as of 11/2023 per last heme/onc noteOverdu e for f/uMonitor labs, except leukocytos isF/U with Dr. 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 Alcoholic hepatitis 2358 61037 F10.988 In hx, LFTs close to normal.Ken id hepatoxic meds.Monit or labs Alcohol dependence 06407 003 F10.20 Sober x 10 years.Cont inuenaltre xone 50 mg qd.Encoura ge continued sobriety. Gastroesop hageal reflux disease 559198101 K21.9 No current sxs.Contin ue omeprazole 20 mg qdMonitor GI sxs. Hypothyroidism 28076379 E03.8 TSH sl low inpt, but with nl FT4.Contin uelevothyr oxine 112 mcg qdMonitor TSH and FT4 periodical ly. Hyperlipidemia 23194881 E78.49 per hxContinue lovastatin 600 mg BID, gemfibrozi l 600 mg BID, omega-3 1000 mg BID, and Zetia 10 mg qd.Monitor labs yearly and for need to adjust [id number] ELGIN RAPP NP [address] [address] 07/09/2024 12:25:29 07/10/2024 11:38:48 Schizoaffective schizophrenia 259878460 F25.0 Longstandi mood disorder, with support services in the community. Can no longer be on lithium per last admission to hospitalCo ntinuerisp erdol consta 50 mg IM every 14 days, last dose on 06/27/24, next due 07/12;nai tropine 1 mg qdparoxeti ne 20 mg qd.Monitor mood.Provi de emotional supportCon sult psych requested Asthenia 09441854 R53.1 Very deconditio laurence from illness and recent hospitaliz ation.Need s PT/OT for strengthen ing, balance, gait training, safety and function.C ontinue fall precaution s.Monitor for safety.Yi ramirez is to return home. Toxic encephalopathy 283 67226 G92.8 [place] to be multifacto rial due to multiple [...] weekly. calcium 9.9 stablemoni tor prn Hypernatremia 951385627 E87.0 Bumped while inpt. without prior hx of elevation. Improved by the time of d/cMonitor wkly x 4, then prn if stable.Enc ourage po fluids. Recurrent falls 80183104 2 R29.6 As above. Aspiration pneumonia 422 095022 J69.0 Resolved in hospitalCo ntinue SALESFORCE SPECIALIST interventi ons.Contin ue modified diet.Monit or for aspiration . Paroxysmal atrial fibrillation 211602250 I48.0 New dx for this pt. in hospital, hr and bp stableNow in NSR.Monito r for recurrence .Cardio f/u prn if recurrence . Pressure i njury stage III 9959695661 L89.153 Continue wound care as ordered to gangaRefrosana r to Wound PA-C for eval and tx.liquid protein 30 ml qd for help with healing.Mo nitor for healing. Retention of urine 47878 4002 R33.8 resolved due to acute hospitaliz ationConti nuetamsulo sin 0.8 mg qhsdutaste ride 0.5 mg qhs.Monito r urinary function. Seizure 15827492 G40.89 Seizure in the hospital felt due to metabolic imbalances .With abnormal EEG. Txed with Keppra inpt, not continued as neurology felt he does not need.Neuro logy recommende d repeat EEG after recovery.M onitor for seizure activity Hypertensive disorder 38 571989 I10 bp stable on 07/02, need new bp, will request todayConti nueamlodip ine 5 mg qdWill order daily vitals x 1 wk, then weekly if stable. Chronic ob structive pulmonary disease 17402486 J43.8 No current sxs.Contin ueAnnuity Ellipta 100 mcg 1 puff qd and duonebs q 3 hrs prn.Monito r resp status. Chronic ly mphoid leukemia, disease 31179080 C91.10 Stage 0 disease as of 11/2023 per last heme/onc noteOverdu e for f/uMonitor labs, except leukocytos isF/U with Dr. 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 Alcoholic hepatitis 2358 08004 F10.988 In hx, LFTs close to normal.Ken id hepatoxic meds.Monit or labs Alcohol dependence 24479 003 F10.20 Sober x 10 years.Cont inuenaltre xone 50 mg qd.Encoura ge continued sobriety. Gastroesop hageal reflux disease 964517381 K21.9 No current sxs.Contin ue omeprazole 20 mg qdMonitor GI sxs. Hypothyroidism 32806267 E03.8 TSH sl low inpt, but with nl FT4.Contin uelevothyr oxine 112 mcg qdMonitor TSH and FT4 periodical ly. Hyperlipidemia 21467457 E78.49 per hxContinue lovastatin 600 mg BID, gemfibrozi l 600 mg BID, omega-3 1000 mg BID, and Zetia 10 mg qd.Monitor labs yearly and for need to adjust Pain of le ft knee joint [id number] 29541 [address] Red today, planning on cortisone injection. Monitor. [id number] ELGIN RAPP NP [address] [address] 07/16/2024 11:45:17 07/17/2024 19:43:58 Schizoaffective schizophrenia 678498063 F25.0 Longstandi mood disorder, with support services in the community. Can no longer be on lithium per last admission to hospitalCo ntinuerisp erdol consta 50 mg IM every 14 days, last dose on 06/27/24, next due 07/12;nai tropine 1 mg qdparoxeti ne 20 mg qd.Monitor mood, currently stable.Pro vide emotional supportCon sult psych requested Asthenia 04612633 R53.1 Very deconditio laurence from illness and recent hospitaliz ation.Need s PT/OT for strengthen ing, balance, gait training, safety and function.C ontinue fall precaution s.Monitor for safety.Yi ramirez is to return home. Toxic encephalopathy 283 53013 G92.8 [place] to be multifacto rial due to multiple [...] weekly. calcium 9.8 stablemoni tor prn Hypernatremia 990786284 E87.0 Bumped while inpt. without prior hx of elevation. Improved by the time of d/cMonitor wkly x 4, then prn if stable.Cur rent level 139.Encour age po fluids. Recurrent falls 38960978 2 R29.6 As above. Aspiration pneumonia 422 591296 J69.0 Resolved in hospitalCo ntinue SALESFORCE SPECIALIST interventi ons.Contin ue modified diet.Monit or for aspiration . Paroxysmal atrial fibrillation 774954575 I48.0 New dx for this pt. in hospital, hr and bp stableNow in NSR.Monito r for recurrence .Cardio f/u prn if recurrence . Pressure i njury stage III 7120131548 L89.153 Continue wound care as ordered to gangaRefe r to Wound PA-C for eval and tx.liquid protein 30 ml qd for help with healing.Mo nitor for healing. Retention of urine 13840 4002 R33.8 resolved due to acute hospitaliz ationConti nuetamsulo sin 0.8 mg qhsdutaste ride 0.5 mg qhs.Monito r urinary function. Seizure 62002761 G40.89 Seizure in the hospital felt due to metabolic imbalances .With abnormal EEG. Txed with Keppra inpt, not continued as neurology felt he does not need.Neuro logy recommende d repeat EEG after recovery.M onitor for seizure activity Hypertensive disorder 38 857509 I10 bp stable on 07/02, need new bp, will request todayConti nueamlodip ine 5 mg qdWill order daily vitals x 1 wk, then weekly if stable. Chronic ob structive pulmonary disease 38631548 J43.8 No current sxs.Contin ueAnnuity Ellipta 100 mcg 1 puff qd and duonebs q 3 hrs prn.Monito r resp status. Chronic ly mphoid leukemia, disease [id number] C91.10 Stage 0 disease as of 11/2023 per last heme/onc noteOverdu e for f/uMonitor labs, except leukocytos isF/U with Dr. 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 Alcoholic hepatitis 2358 51276 F10.988 In hx, LFTs close to normal.Ken id hepatoxic meds.Monit or labs Alcohol dependence 01533 003 F10.20 Sober x 10 years.Cont inuenaltre xone 50 mg qd.Encoura ge continued sobriety. Gastroesop hageal reflux disease [id number] K21.9 No current sxs.Contin ue omeprazole 20 mg qdMonitor GI sxs. Hypothyroidism 19656357 E03.8 TSH sl low inpt, but with nl FT4.Contin uelevothyr oxine 112 mcg qdMonitor TSH and FT4 periodical ly. Hyperlipidemia 95281123 E78.49 per hxContinue lovastatin 600 mg BID, gemfibrozi l 600 mg BID, omega-3 1000 mg BID, and Zetia 10 mg qd.Monitor labs yearly and for need to adjust Pain of le ft knee joint [id number] [address] Red, given cortisone injection with improvemen t in comfort.Mo nitor. [id number] ELGIN RAPP NP [address] [address] 07/25/2024 13:21:33 07/26/2024 11:30:22 Schizoaffective schizophrenia 247913088 F25.0 Longstandi ng mood disorder, with support services in the community. Can no longer be on lithium per last admission to hospitalCo ntinuerisp erdol consta 50 mg IM every 14 days, last dose on 06/27/24, next due 07/12;nai tropine 1 mg qdparoxeti ne 20 mg qd.Monitor mood, currently stable.Pro vide emotional supportCon sult psych requested Asthenia 35759190 R53.1 Very deconditio laurence from illness and recent hospitaliz ation.Need s PT/OT for strengthen ing, balance, gait training, safety and function.C ontinue fall precaution s.Monitor for safety.Yi ramirez is to return home. Toxic encephalopathy 283 48815 G92.8 [place] to be multifacto rial due to multiple [...] weekly. calcium 9.8 stablemoni tor prn Hypernatremia 569045226 E87.0 Bumped while inpt. without prior hx of elevation. Improved by the time of d/cMonitor wkly x 4, then prn if stable.Cur rent level 139.Encour age po fluids. Recurrent falls 15830495 2 R29.6 As above. Aspiration pneumonia 422 959781 J69.0 Resolved in hospitalCo ntinue [employer] SPECIALIST interventi ons.Contin ue modified diet.Monit or for aspiration . Paroxysmal atrial fibrillation 872220984 I48.0 New dx for this pt. in hospital, hr and bp stableNow in NSR.Monito r for recurrence .Cardio f/u prn if recurrence . Pressure i njury stage III [id number] L89.153 Continue wound care as ordered to coccyxRefe r to Wound PA-C for eval and tx.liquid protein 30 ml qd for help with healing.Mo nitor for healing. Retention of urine 51926 4002 R33.8 resolved due to acute hospitaliz ationConti nuetamsulo sin 0.8 mg qhsdutaste ride 0.5 mg qhs.Monito r urinary function. Seizure 03216677 G40.89 Seizure in the hospital felt due to metabolic imbalances .With abnormal EEG. Txed with Keppra inpt, not continued as neurology felt he does not need.Neuro logy recommende d repeat EEG after recovery.M onitor for seizure activity Hypertensive disorder 38 165887 I10 bp stable on 07/02, need new bp, will request todayConti nueamlodip ine 5 mg qdWill order daily vitals x 1 wk, then weekly if stable. Chronic ob structive pulmonary disease 85626293 J43.8 No current sxs.Contin ueAnnuity Ellipta 100 mcg 1 puff qd and duonebs q 3 hrs prn.Monito r resp status. Chronic ly mphoid leukemia, disease 98751674 C91.10 Stage 0 disease as of 11/2023 per last heme/onc noteOverdu e for f/uMonitor labs, except leukocytos isF/U with Dr. 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 Alcoholic hepatitis 2358 61047 F10.988 In hx, LFTs close to normal.Ken id hepatoxic meds.Monit or labs Alcohol dependence 56436 003 F10.20 Sober x 10 years.Cont inuenaltre xone 50 mg qd.Encoura ge continued sobriety. Gastroesop hageal reflux disease 612591647 K21.9 No current sxs.Contin ue omeprazole 20 mg qdMonitor GI sxs. Hypothyroidism 09652458 E03.8 TSH sl low inpt, but with nl FT4.Contin uelevothyr oxine 112 mcg qdMonitor TSH and FT4 periodical ly. Hyperlipidemia 89378768 E78.49 per hxContinue lovastatin 600 mg BID, gemfibrozi l 600 mg BID, omega-3 1000 mg BID, and Zetia 10 mg qd.Monitor labs yearly and for need to adjust Pain of le ft knee joint 0625751020 [address] Red, given cortisone injection with improvemen t in comfort.Mo nitor. [id number] ELGIN RAPP NP [address] [address] 08/01/2024 13:03:49 08/12/2024 13:19:40 Schizoaffective schizophrenia 255617180 F25.0 Longstandi ng mood disorder, with support services in the community. Can no longer be on lithium per last admission to hospitalCo ntinuerisp erdol consta 50 mg IM every 14 days, last dose on 06/27/24, next due 07/12;nai tropine 1 mg qdparoxeti ne 20 mg qd.Monitor mood, currently stable.Pro vide emotional supportCon sult psych requested Asthenia 00275254 R53.1 Very deconditio laurence from illness and recent hospitaliz ation.Need s PT/OT for strengthen ing, balance, gait training, safety and function.C ontinue fall precaution s.Monitor for safety.Yi ramirez is to return home. Toxic encephalopathy 283 39319 G92.8 [place] to be multifacto rial due to multiple [...] weekly. calcium 9.8 stablemoni tor prn Hypernatremia 810490639 E87.0 Bumped while inpt. without prior hx of elevation. Improved by the time of d/cMonitor wkly x 4, then prn if stable.Cur rent level 139.Encour age po fluids. Recurrent falls 03237685 2 R29.6 As above. Aspiration pneumonia 422 693674 J69.0 Resolved in hospitalCo ntinue [employer] interventi ons.Contin ue modified diet.Monit or for aspiration . Paroxysmal atrial fibrillation 915257318 I48.0 New dx for this pt. in hospital, hr and bp stableNow in NSR.Monito r for recurrence .Cardio f/u prn if recurrence . Retention of urine 46758 4002 R33.8 resolved due to acute hospitaliz ationConti nuetamsulo sin 0.8 mg qhsdutaste ride 0.5 mg qhs.Monito r urinary function. Seizure 80623871 G40.89 Seizure in the hospital felt due to metabolic imbalances .With abnormal EEG. Txed with Keppra inpt, not continued as neurology felt he does not need.Neuro logy recommende d repeat EEG after recovery.M onitor for seizure activity Hypertensive disorder 38 717076 I10 BP on higher side of nl.Check daily, consider increasing norvasc (currently on 5mg qd) Chronic ob structive pulmonary disease 27506821 J43.8 No current sxs.Contin ueAnnuity Ellipta 100 mcg 1 puff qd and duonebs q 3 hrs prn.Monito r resp status. Chronic ly mphoid leukemia, disease 47492787 C91.10 Stage 0 disease as of 11/2023 per last heme/onc noteOverdu e for f/uMonitor labs, except leukocytos isF/U with Dr. 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 Alcoholic hepatitis 2358 30809 F10.988 In hx, LFTs close to normal.Ken id hepatoxic meds.Monit or labs Alcohol dependence 55125 003 F10.20 Sober x 10 years.Cont inuenaltre xone 50 mg qd.Encoura ge continued sobriety. Gastroesop hageal reflux disease 851551620 K21.9 No current sxs.Contin ue omeprazole 20 mg qdMonitor GI sxs. Hypothyroidism 75342854 E03.8 TSH sl low inpt, but with nl FT4.Contin uelevothyr oxine 112 mcg qdMonitor TSH and FT4 periodical ly. Hyperlipidemia 34946841 E78.49 per hxContinue lovastatin 600 mg BID, gemfibrozi l 600 mg BID, omega-3 1000 mg BID, and Zetia 10 mg qd.Monitor labs yearly and for need to adjust Pain of le ft knee joint 0794846932 [address] Red, given cortisone injection with improvemen t in comfort.Mo nitor. [id number] Jessa Schaefer NP [address] [address] 08/09/2024 14:04:27 08/12/2024 10:28:12 Schizoaffective schizophrenia 827964723 F25.0 [facility], with support services in the community. Can no longer be on lithium per last admission to hospital with toxicityCo ntinuerisp erdol consta 50 mg IM every 14 days,(will need to followed in community for injections with nursing, pcp, or psych )benztropi ne 1 mg qdparoxeti ne 20 mg qd.Monitor mood, currently stable.Pro vide emotional supportCon sult psych requested Asthenia 93532537 R53.1 Very deconditio laurence from illness and recent hospitaliz ation, now improvingP T/OT for strengthen ing, balance, gait training, safety and function as neededCont inue fall precaution s.Monitor for safety.Yi ramirez is to return home. Toxic encephalopathy 283 39592 G92.8 resolved, likely at baselineFe lt to [...] if levels increasemo nitor prn Recurrent falls 18558539 2 R29.6 As above. Paroxysmal atrial fibrillation 559465170 I48.0 New dx for this pt. in hospital, hr and bp stableNow in NSR. Not any rate control meds and doing wellMonito r for recurrence .Cardio f/u prn if recurrence . Retention of urine 40039 4002 R33.8 resolved due to acute hospitaliz ationConti nuetamsulo sin 0.8 mg qhsdutaste ride 0.5 mg qhs.Monito r urinary function. Seizure 46068565 G40.89 Seizure in the hospital felt due to metabolic imbalances .With abnormal EEG. Txed with Keppra inpt, not continued as neurology felt he does not need.Neuro logy recommende d repeat EEG after recovery.M onitor for seizure activity Hypertensive disorder 38 703833 I10 BP on higher side of nl. 130s todayCheck daily, consider increasing norvasc (currently on 5mg qd) if needed Chronic ob structive pulmonary disease 60309665 J43.8 No current sxs.Contin ueAnnuity Ellipta 100 mcg 1 puff qd and duonebs q 3 hrs prn.Monito r resp status. Chronic ly mphoid leukemia, disease 88143832 C91.10 Stage 0 disease as of 11/2023 per last heme/onc noteOverdu e for f/uMonitor labs, except leukocytos isF/U with Dr. 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 Alcoholic hepatitis 2358 40266 F10.988 In hx, LFTs close to normal.Ken id hepatoxic meds.Monit or labs Alcohol dependence 72470 003 F10.20 Sober x 10 years.Cont inuenaltre xone 50 mg qd.Encoura ge continued sobriety. Gastroesop hageal reflux disease 464882028 K21.9 No current sxs.Contin ueomeprazo le 20 mg qdMonitor GI sxs. Hypothyroidism 82489293 E03.8 TSH sl low inpt, but with nl FT4.Contin uelevothyr oxine 112 mcg qdMonitor TSH and FT4 periodical ly. Hyperlipidemia 66033522 E78.49 per hxContinue lovastatin 600 mg BID, gemfibrozi l 600 mg BID, omega-3 1000 mg BID, and Zetia 10 mg qd.Monitor labs yearly and for need to adjust Pain of le ft knee joint 1199161572 97890 M25.[address] Red, given cortisone injection with improvemen t in comfort a few weeks ago.pt states knee pain has improvedMo nitor. [id number] Stacia Celestin MD [address] [address] 08/13/2024 21:21:13 08/14/2024 10:44:47 Lower abdominal pain 96346381 R10.31 Not clear if pain he gets in RLQ is related to inguinal hernia or umbilical hernia. But non-acute and he is being d/c'd 6 days. So will f/u with PCP for surgeon referral.R eassess sooner if increased sxs. Hypertensive disorder 38 928427 I10 BP WNLContinu e amlodipine 5 mg qdMonitor BP and labs Schizoaffe ctive schizophrenia 913951209 F25.0 Mood good since here.Sara nue risperdol consta 50 mg IM every 14 days, last dose on 06/27/24, next due 07/12; benztropin e 1 mg qd; and paroxetine 20 mg qd.Monitor mood.F/U with psych as outpt. [id number] Jessa Schaefer NP [address] [place] [address] 08/19/2024 12:02:56 08/20/2024 09:41:25 Lower abdominal pain 00002382 R10.31 small inguinal hernia or umbilical hernia.f/u with PCP for surgeon referral.R eassess sooner if increased sxs outpt with pcp Hypertensive disorder 38 213754 I10 BP WNLContinu eamlodipin e 5 mg qdMonitor BP and labs outpt with pcp Schizoaffe ctive schizophrenia 871686310 F25.0 Mood good since here.Sara nuerisperd ol consta 50 mg IM every 14 days,benzt ropine 1 m,g qdparoxeti ne 20 mg qd.Monitor mood.F/U with psych as outpt. Asthenia 61941253 R53.1 Very deconditio laurnece from illness and recent hospitaliz ation, now improving and feels back to baselinePT /OT for strengthen ing, balance, gait training, safety and function as needed outptConti nue fall precaution s.Monitor for safety outpt with pcp Toxic encephalopathy 283 33819 G92.8 resolved, likely at baseline at this [...] nitor prn outpt with pcp Recurrent falls 40546760 2 R29.6 As above. Paroxysmal atrial fibrillation 849308932 I48.0 New dx for this pt. in hospital, hr and bp stableMoni tor for recurrence .not on meds for thisCardio f/u prn if recurrence outpt Retention of urine 98989 4002 R33.8 resolved due to acute hospitaliz ationConti nuetamsulo sin 0.8 mg qhsdutaste ride 0.5 mg qhs.Monito r urinary function outpt prn Seizure 82596217 G40.89 Seizure in the hospital felt due to metabolic imbalances .With abnormal EEG. Txed with Keppra inpt, not continued as neurology felt he does not need.Neuro logy recommende d repeat EEG after recovery.M onitor for seizure activity outpt with pcp Chronic ob structive pulmonary disease 36264586 J43.8 No current sxs.Contin ueAnnuity Ellipta 100 mcg 1 puff qdduonebs q 3 hrs prn.(has not needed lately)Mon itor resp status outpt with pcp Chronic ly mphoid leukemia, disease 54229077 C91.10 Stage 0 disease as of 11/2023 per last heme/onc noteOverdu e for f/uMonitor labs, except leukocytos isF/U with Dr. 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.Ne eded iron supplement ation and also periodic phlebotomy .ContinueF eSO4 325 mg qd.Monitor labs outpt Alcoholic hepatitis 2358 45311 F10.988 In hx, LFTs close to normal.Ken id hepatoxic meds.Monit or labs outpt Alcohol dependence 58657 003 F10.20 Sober x 10 years.Cont inuenaltre xone 50 mg qd.Encoura ge continued sobriety outpt Gastroesop hageal reflux disease 009361954 K21.9 No current sxs.Contin ueomeprazo le 20 mg qdMonitor GI sxs outpt Hypothyroidism 58404550 E03.8 TSH sl low inpt, but with nl FT4.Contin uelevothyr oxine 112 mcg qdMonitor TSH and FT4 periodical ly outpt Hyperlipidemia 85079955 E78.49 per hxContinue lovastatin 600 mg BID, gemfibrozi l 600 mg BID, omega-3 1000 mg BID, and Zetia 10 mg qd.Monitor labs yearly and for need to adjust outpt Pain of le ft knee joint 9109752794 [address] Red, given cortisone [...] Policy Number Policy [place] Covered Member ID Ferirs Member ID Guarantor Name 08/19/2024 2 [place] [facility] Robb Rene [id number] Robb Rene 08/19/2024 1 [place]IC[place] B[place]: [email or web address] Robb Rene [id number] Robb Nicolasbrentvincent Notes Date Note Type Note Provider Name and Address Organization Details Recorded Time 07/25/2024 text/html ROS as noted in the HPI Robb is seen today for a routine 30 day visit. He is a 63 yo male, [place] [facility] [place] for AMS secondary [...] one seizure in 06/2024.MOLST: full code ELGIN RAPP, DENTIST ATTENDANT [address] [facility], [address], [place], [address], [facility] [employer] [facility] 07/25/2024 13:44:53 08/01/2024 text/html ROS as noted in the HPI Robb is seen today for an acute visit. He is a 63 yo male, [place] [facility] [place] for AMS secondary [...] 06/2024.MOLST: full code ELGIN RAPP NP [address] [facility], [address], [place], [address], [facility] [employer] [facility] 08/12/2024 13:05:23 08/09/2024 text/html ROS as [...] is a 63 yo male, [place] [facility] [place] for AMS secondary [...] MOLST: full code Jessa Schaefer NP [address] [facility], [address], [place], [address], [facility] 08/10/2024 10:50:28 08/13/2024 text/html Pt comes [...] seizure in 06/2024. Stacia Celestin MD [address] [facility], [address], [place], [address], [facility] 08/13/2024 21:33:12 08/19/2024 text/html ROS as [...] is a 63 yo male, [place] [facility] [place] for AMS secondary to lithium toxicity, hypercalcemia, hypernatremia, and hyperparathyroidism, treated for VALENCIA, seizure, urinary retention, and new onset afib transferred to [facility] for rehab. While in the hospital his meds were changed including lithium. While here at [facility]: He has been doing well on [...] 19, 2024.A referral has been made to [facility] as he has had them in the past. All documentation was previously faxed for review. D/C summary to be forwarded today for review. [facility] has been contacted as well to set up [employer] services as well as Meals on Wheels. Per [facility] request, they will schedule his follow-up PCP appointment. Robb is very happy to be returning home today. This case will close as of this date. JONATHANST: full code Jessa Schaefer, DIPTI [address] [facility], [address], [place], [address], [facility] [employer] 08/19/2024 12:34:05
== END 2025-09-03 12:30 | disposition home or self-care (01) ==
LOC: HO.HMGCX 12:29
PROVIDERS: PCP Internal Medicine; Visit Provider Internal Medicine
DX: Z00.01 Encounter for general adult medical examination with abnormal findings (principal); M25.572 Pain in left ankle and joints of left foot; G89.29 Other chronic pain; I10 Essential (primary) hypertension; E78.9 Disorder of lipoprotein metabolism, unspecified; E03.9 Hypothyroidism, unspecified; F25.9 Schizoaffective disorder, unspecified; K21.9 Gastro-esophageal reflux disease without esophagitis; K70.9 Alcoholic liver disease, unspecified; E83.52 Hypercalcemia; N40.1 Benign prostatic hyperplasia with lower urinary tract symptoms; R35.0 Frequency of micturition; D47.3 Essential (hemorrhagic) thrombocythemia; D75.1 Secondary polycythemia; C91.10 Chronic lymphocytic leukemia of B-cell type not having achieved remission; M15.9 Polyosteoarthritis, unspecified; R41.3 Other amnesia; F81.9 Developmental disorder of scholastic skills, unspecified; J43.8 Other emphysema; F17.210 Nicotine dependence, cigarettes, uncomplicated; Z78.9 Other specified health status; Z74.09 Other reduced mobility
CPT/HCPCS: 36415; 73600; 80053; 83036; 83721; 84443; 85025; 99397

== ENCOUNTER → 2025-09-03 13:21 | Outpatient (BNV) | payer MEDICARE, MEDICAID, SELFPAY | PROVIDERS: PCP Internal Medicine; Visit Provider Radiology Diagnostic Ultrasound | DX: M77.32 Calcaneal spur, left foot (principal) | CPT/HCPCS: 73600 ==